=== PATIENT | male | born 1960 | race Caucasian/White ===

== ENCOUNTER 2020-09-11 10:39 | Outpatient (REF) | payer OTHER, SELFPAY ==
--- NOTE | 2020-09-11 10:40 | XR_ITS ---
EXAMINATION: XR WRIST, LEFT CLINICAL INFORMATION: Pain COMPARISON: None TECHNIQUE: PA, lateral, and oblique views of the left wrist. FINDINGS: The bones and soft tissues are normal. No fracture. Alignment is anatomic with normal joint spaces. No erosions or abnormal soft tissue calcifications. XR/XR wrist LT min 3V IMPRESSION: Normal left wrist.
== END 2020-09-11 10:40 | disposition home or self-care (01) ==
LOC: HO.HOSX 10:39
PROVIDERS: PCP Internal Medicine; Visit Provider Physician Assistant
DX: G56.00 Carpal tunnel syndrome, unspecified upper limb (principal); S69.82XA Other specified injuries of left wrist, hand and finger(s), initial encounter
CPT/HCPCS: 29075; 73110; 99212

== ENCOUNTER 2020-10-06 13:12 | Outpatient (REF) | payer OTHER, SELFPAY ==
--- NOTE | 2020-10-06 13:14 | MR_ITS ---
EXAMINATION: MR WRIST WITH CONTRAST, LEFT CLINICAL INFORMATION: Other specified injuries of unspecified wrist. Patient reports left wrist pain, swelling, and no recent injury. COMPARISON: None TECHNIQUE: MRI of the left wrist was performed after the intra-articular administration of a dilute gadolinium-containing solution on a high-field scanner. FINDINGS: TRIANGULAR FIBROCARTILAGE: There is a prominent full-thickness tear involving most of the central triangular fibrocartilage measuring 7 mm in width. INTRINSIC LIGAMENTS: There appears to be a subtle linear full-thickness tear in the central portion of the scapholunate ligament. There is a prominent full-thickness tear in the lunotriquetral ligament. TENDONS/MEDIAN NERVE: Intact ARTICULAR CARTILAGE/BONE: There are patchy areas of mild cartilage thinning involving the radioscaphoid, triscaphe, and 1st CMC joints. There is pmxv-[id number] cartilage irregularity and thinning involving the radiolunate and capitate-hamate articulations. There are patchy areas of bone marrow edema involving the distal radius and ulna and most of the carpal bones. There are a few small subchondral degenerative cysts. JOINT FLUID/SOFT TISSUES: There is gadolinium-containing fluid in all compartments due to the TFCC and ligament tears. There is scattered synovitis in all 3 wrist compartments. MR/MR wrist LT w con IMPRESSION: 1. Prominent full-thickness tear of the central triangular fibrocartilage. 2. Full-thickness tear of the central portion of the scapholunate ligament and prominent full-thickness tear of the lunotriquetral ligament. 3. Vbnl-lt-udhbwksf arthrosis involving multiple joints as described above. 4. Scattered synovitis in all 3 compartments of the wrist.
--- NOTE | 2020-10-06 13:36 | FL_ITS ---
EXAMINATION: MR ARTHROGRAM WRIST, LEFT CLINICAL INFORMATION: Wrist pain COMPARISON: X-ray 09/11/2020 TECHNIQUE/FINDINGS: The procedure, risks, benefits and alternatives were reviewed with the patient and written informed consent was obtained after all questions were answered. A 22-gauge needle was advanced into the left wrist joint utilizing local anesthesia, sterile technique and fluoroscopic guidance. A small amount contrast was injected to confirm needle placement. Subsequently, 5 mL of a mixture of 10 mL normal saline, 4 mL Omnipaque , 6 mL of 1% lidocaine and 0.05 mL of Gadavist were injected. There were no immediate complications. The patient was sent to the MRI in stable condition. Spot films demonstrate contrast extension into the distal radioulnar joint suggestive of TFCC tear. FLUOROSCOPIC TIME: 0.1 minutes NUMBER OF FLUOROSCOPIC IMAGES : 3 screen captures FL/FL arthrogram wrist LT IMPRESSION: Fluoroscopic guided injection of the left wrist joint for MR arthrography without complication.
[2020-10-06] MEDS: iohexoL 300 MG/ML 50 ML INFUS..BTL IV (14:42)
== END 2020-10-06 13:13 | disposition home or self-care (01) ==
LOC: HO.XRAY 13:12
PROVIDERS: Visit Provider Physician Assistant
DX: S69.82XA Other specified injuries of left wrist, hand and finger(s), initial encounter (principal); X58.XXXA Exposure to other specified factors, initial encounter; Y93.9 Activity, unspecified; Y92.9 Unspecified place or not applicable; Y99.8 Other external cause status
CPT/HCPCS: 25246; 73115; 73222; A9585; Q9967

== ENCOUNTER 2020-10-06 13:35 | Outpatient (REF) | payer OTHER, SELFPAY | END 2020-10-06 13:36 | disposition home or self-care (01) | LOC: HO.MRI 13:35 | PROVIDERS: Visit Provider Physician Assistant | DX: Z13.89 Encounter for screening for other disorder (principal) ==

== ENCOUNTER → 2020-10-29 12:49 | Outpatient (BNVA) | payer OTHER, SELFPAY | PROVIDERS: PCP Internal Medicine; Visit Provider Physician Assistant | DX: S69.80XD Other specified injuries of unspecified wrist, hand and finger(s), subsequent encounter (principal) | CPT/HCPCS: 99212 ==

== ENCOUNTER 2020-11-25 11:23 | Outpatient (REF) | payer OTHER, SELFPAY | END 2020-11-25 11:24 | disposition home or self-care (01) | LOC: HO.LAB 11:23 | PROVIDERS: Visit Provider Internal Medicine | DX: Z20.822 Contact with and (suspected) exposure to COVID-19 (principal) | CPT/HCPCS: 36415; C9803; U0003; U0005 ==

== ENCOUNTER → 2020-12-02 13:34 | Outpatient (BNVA) | payer OTHER, SELFPAY | PROVIDERS: PCP Internal Medicine; Visit Provider Orthopaedic Surgery | DX: M25.532 Pain in left wrist (principal); M25.632 Stiffness of left wrist, not elsewhere classified; G56.03 Carpal tunnel syndrome, bilateral upper limbs | CPT/HCPCS: 99202 ==

== ENCOUNTER → 2020-12-30 10:50 | Outpatient (BNVA) | payer OTHER, SELFPAY | PROVIDERS: Visit Provider Orthopaedic Surgery ==

== ENCOUNTER 2021-01-19 08:46 | Outpatient (REF) | payer OTHER, SELFPAY ==
[2021-01-19 11:57] LABS: SARS COV2 PCR INHOUSE NEGATIVE (Negative)
== END 2021-01-19 08:47 | disposition home or self-care (01) ==
LOC: HO.LAB 08:46
PROVIDERS: Visit Provider Internal Medicine
DX: Z20.822 Contact with and (suspected) exposure to COVID-19 (principal)
CPT/HCPCS: C9803; U0003

== ENCOUNTER 2021-02-03 11:20 | Outpatient (REF) | payer OTHER, SELFPAY ==
[2021-02-03 11:39] LABS: COVID-19 Test Negative (Negative)
== END 2021-02-03 11:21 | disposition home or self-care (01) ==
LOC: HO.LAB 11:20
PROVIDERS: Visit Provider Internal Medicine
DX: Z20.822 Contact with and (suspected) exposure to COVID-19 (principal)
CPT/HCPCS: 36415; 87635; C9803

== ENCOUNTER 2021-03-18 14:00 | Outpatient (RCR) | payer OTHER, SELFPAY ==
--- NOTE | 2020-12-14 15:58 | MHC.OT.OEV ---
[address] [phone] F: [phone] Occupational Therapy Evaluation Diagnosis: L WRIST STIFFNESS Date of Onset: 07/08/20 Attending Provider: Ora Luke Prescribed Treatment: Natasha MCALLISTER Follow Up Appointment: 12/30/20 History of Current Condition: Pt has been having pain and stiffness in L wrist since June 2020, reports being in a cast in late August 2020 and then was given a pre gabi brace in September 2020 until pt recently told to back off wear (12/03/2020). Left wrist MRI arthrogram from 10/06/2020 Per the MRI report by Dr. Gonzalez he found 1. Prominent full-thickness tear of the central triangular fibrocartilage 2. Full-thickness tear of the central portion of the scapholunate ligament and prominent full-thickness tear of the lunotriquetral ligament 3. 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 Reports attending the [employer]. Living Situation, Family and/or Social Support: Lives alone Current Level of Function and Occupation Self Care, Employment, Leisure: Reports difficulty with ADLs, IADLs, gripping, lifting heavy amounts Sleep: No complaints with sleep Driving: No complaints with driving Pain Assessment Pain Score: 0-4/10 Pain Scale Used: Numeric (0 - 10) Pain Location and Description: L wrist, radial and ulnar FA Aggravating Factors: Movement, use of L hand Alleviating Factors: Takes ibuprofen for pain Skin and Soft Tissue Assessment Skin and Soft Tissue: Atrophy Comments: Reports L index finger old childhood injury MCP circumference: R 23.5 cm, L 22.5 cm mild atrophy of L hand noted Nerve assessment Ulnar Nerve: Median Nerve: Radial Nerve: Comments: Continue to assess Sensory Assessment Temperature: Light Touch: B/L Impaired Proprioception: Vibration: Comments: Reports numbness in forearm/hand Bagdad josé miguel R hand RF 4.31 (diminished protective sensation), otherwise 3.61 (diminished light tough) in digits L hand Thumb , RF, SF 4.31(diminished protective sensation), IF, LF 3.61 (diminished light touch) Edema Assessment Upper Extremity: WNL Lower Extremity: Comments: Wrist circumference: 20 cm B/L Dexterity Assessment Dexterity: Left Impaired Comments: 9 hole peg: R 30 sec, L 41 sec Special Tests Comments: (-) fovea sign, (-) tinels, (+) L Finklestein's AROM(PROM) Strength Elbow Flexion: Extension: Pronation: R 90 L 90 Supination: R 90 L 12 Comments: Flexion: Extension: Pronation: Supination: Comments: Wrist Flexion: R 42, L 30 Extension: R 60, L 40 Ulnar Deviation: R 30, L 15 Radial Deviation: R 20, L 15 Comments: L radial wrist pain with ulnar deviation Flexion: Extension: Ulnar Deviation: Radial Deviation: Comments: Digits Index MCP: PIP: DIP: Long MCP: PIP: DIP: Ring MCP: PIP: DIP: Small MCP: PIP: DIP: Comments: SF tip to DPC 1mm, otherwise grossly composite fist Gross Grasp: R 65, L 25 Lateral Pinch: R 14, L 6 Two-Point Pinch: R 7, L 3 Three-Jaw Cong: R 8, L 3 Comments: Pulling/tightness reported with L gross grasp. 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 Patient demonstrates Patient verbalizes Barriers to Learning: None Readiness for Learning: Accepting Who was educated? Patient Comments: Plan of Care Assessment: Brady presents with L wrist stiffness after being casted back in August for TFCC injury. He denies any knowledge of [facility]O and has a B/L CTS dx. Brady demonstrates ROM limitations wrist flex/ext, radial/ulnar dev and forearm supination. He reports numbness sensation in his forearm and hand but can not report any specific numbness in the digits. He demonstrates diminished light touch and diminished protective sensation in the L digits. He has mild atrophy in the L hand as well as demonstrates a decrease in L hand strength/pinch. He also reports pain in his left radial and ulnar wrists. Brady reports his limitations are impacting his performance in ADLs, IADLs and work and a 39% limitation was reported per the Quick DASH. He would benefit from skilled OT 1-2x/week for 6 weeks to maximize independence and return function. STG Duration: 3 Short Term Goals: Ind HEP Ind with heat/ice use Ind compliance with orthosis FA supination >45 deg Wrist ext/flexion >45/35 Increase gross grasp >35 lbs LTG Duration: 6 Compliance Mgr Goals: Gross grasp >60 lbs Tolerate lifting 25+ lbs with minimal pain (<2/10) for work related tasks FA supination >80 deg Wrist ext/flexion >55/40 deg 9-hole peg L hand <33 sec Quick DASH <20 Frequency and Duration: The patient will be seen 2x/week for 6 weeks Treatment Plan: Therapeutic Exercise Therapeutic Activity Home Exercise Program Splinting Neuro Re-ed Patient Education Desensitization/Sensory Re-ed ADL Training Ultrasound Iontophoresis Paraffin Fluidotherapy MHP Cold Packs Joint Mobilization Soft Tissue Mobilization Kinesiotaping Other (see comments) Pt STATES SCHEDULING CONFLICT / ABILITY TO ATTEND 2x/WEEK Electronically Signed By: Stefanie Benites OT/s Reviewed/agree with student documentation: Yes Therapist: KAREN GOODMAN, OTR/L Please sign and return to therapist, Thank you for your referral.
--- NOTE | 2021-03-18 15:52 | MHC.OT.DC ---
[address] [phone] F: [phone] Occupational Therapy Discharge Note Provider: Ora Luke Diagnosis: L WRIST STIFFNESS Date of Evaluation: 12/14/20 Date of Discharge: 03/18/21 Treatments to Date: 10 Discharge Status: Improved Function Independent with HEP Discharge Summary: MR CUBA RETURNS AFTER A THREE WEEK LAPSE IN THERAPY WITH GOOD CARRYOVER OF HEP AND LOW PAIN. HE DENIES DIFFICULTIES WITH IADLs AND IS IMPLEMENTING COMPENSATORY TECHNIQUES WHEN NEEDED. JOSE IS WEARING HIS WRIST WIDGET AT NIGHT AND WHEN NEEDED AT WORK. Pt IS CLOSE TO ACHIEVING ALL LTGs AND SUSPECT HE WILL CONTINUE TO IMPROVE WITH SELF GUIDED HEP. NO FURTHER OT WARRANTED AT THIS TIME. D/C OT. Electronically Signed By: KAREN GOODMAN OTR/Jc Reviewed/agree with student documentation: N/A Therapist: Please Sign and return to therapist, thank you for your referral.
== END 2021-03-18 15:54 | disposition other institution (70) ==
LOC: HO.OT 14:00
PROVIDERS: PCP Internal Medicine; Visit Provider Orthopaedic Surgery
DX: M25.632 Stiffness of left wrist, not elsewhere classified (principal); M25.532 Pain in left wrist
CPT/HCPCS: 97033; 97035; 97110; 97140; 97167; 97530

== ENCOUNTER 2021-07-02 11:28 | Outpatient (REF) | payer OTHER, SELFPAY ==
[2021-07-02 12:04] LABS: COVID-19 Test Negative (Negative)
== END 2021-07-02 11:29 | disposition home or self-care (01) ==
LOC: HO.LAB 11:28
PROVIDERS: PCP Internal Medicine; Visit Provider Internal Medicine
DX: Z20.822 Contact with and (suspected) exposure to COVID-19 (principal)
CPT/HCPCS: 36415; 87635; C9803

== ENCOUNTER → 2021-10-26 15:24 | Outpatient (BNVA) | payer OTHER, SELFPAY | PROVIDERS: PCP Internal Medicine; Visit Provider Orthopaedic Surgery | DX: G56.03 Carpal tunnel syndrome, bilateral upper limbs (principal); M25.632 Stiffness of left wrist, not elsewhere classified; M25.532 Pain in left wrist | CPT/HCPCS: 99212 ==

== ENCOUNTER 2021-10-27 10:46 | Outpatient (REF) | payer OTHER, SELFPAY ==
[2021-10-27 11:03] LABS: MANUAL DIFF FLAG NO
[2021-10-27 12:05] LABS: Basophils Percent Auto 0.7 % (0-2); Eosinophils Absolute Auto 0.1 X10*3/uL (0.0-0.4); Eosinophils Percent Auto 1.8 % (0-4); Hemoglobin 14.5 g/dl (14.0-18.0); Imm Gran Abs Auto 0.02 X10*3/uL (0.00-0.03); Imm Gran Pct Auto 0.4 % (0.0-0.4); Lymphocytes Absolute Auto 1.3 X10*3/uL (1.2-4.9); Lymphocytes Percent Auto 22.1 % (20-40); Mean Corpuscular HGB Conc 34.5 g/dl (31.0-36.0); Mean Corpuscular Hemoglobin 31.9 pg (27.0-33.0); Mean Corpuscular Volume 92.5 fL (80.0-98.0); Mean Platelet Volume 10.4 fL (9.4-12.4); Monocytes Absolute Auto 0.5 X10*3/uL (0.1-1.2); Monocytes Percent Auto 8.7 % (2-11); Neutrophils Absolute Auto 3.8 x10*3/uL (2.0-8.3); Neutrophils Percent Auto 66.3 % (45-73); Platelet Count 206 X10*3/uL (160-400); Red Blood Count 4.54 X10*6/uL (4.60-5.80); Red Cell Distribution Width 12.2 % (11.0-16.0); White Blood Count 5.7 X10*3/uL (4.8-10.8)
[2021-10-27 12:28] LABS: Alanine Aminotransferase 18 U/L (0-40); Albumin Level 4.1 g/dL (3.5-5.0); Alkaline Phosphatase 94 U/L (39-117); Anion Gap 12 (12-20); Aspartate Amino Transferase 19 U/L (5-37); Bilirubin Total 0.7 mg/dL (0.0-1.0); Blood Urea Nitrogen 31 mg/dL (9-16); Calcium 9.7 mg/dL (8.4-10.2); Carbon Dioxide 25 mmol/L (22-29); Chloride 106 mmol/L (96-108); Cholesterol 236 mg/dL; Estimated Glomerular Filt Rate 51; Glucose Fasting 89 mg/dL (60-99); HDL Cholesterol 46 mg/dL; LDL Cholesterol Calculated 171 mg/dl; Potassium 4.6 mmol/L (3.3-5.1); Sodium 138 mmol/L (135-145); Total Protein 6.8 g/dL (6.5-8.0); Triglycerides 97 mg/dL
== END 2021-10-27 10:47 | disposition home or self-care (01) ==
LOC: HO.LAB 10:46
PROVIDERS: PCP Internal Medicine; Visit Provider Internal Medicine
DX: Z00.00 Encounter for general adult medical examination without abnormal findings (principal); E11.9 Type 2 diabetes mellitus without complications; R35.1 Nocturia; Z12.5 Encounter for screening for malignant neoplasm of prostate
CPT/HCPCS: 36415; 80053; 80061; 84153; 85025

== ENCOUNTER 2021-11-09 16:09 | Outpatient (REF) | payer OTHER, SELFPAY ==
--- NOTE | ~2021-11-09 | XR_ITS ---
EXAMINATION: XR ANKLE, LEFT CLINICAL INFORMATION: Sprain COMPARISON: None TECHNIQUE: AP, lateral, and mortise views of the left ankle. FINDINGS: There is an oblique minimally displaced fracture of the distal fibular shaft. The lateral malleolus is a displaced laterally and posteriorly 3 mm with respect to the more proximal shaft. No other fracture is seen. There may be mild medial ankle mortise widening. There is diffuse soft tissue swelling about the ankle. There is a plantar calcaneal spur and soft tissue calcification or ossification of the distal Achilles tendon. XR/XR ankle LT min 3V IMPRESSION: Oblique minimally displaced fracture of the distal fibular shaft. Question medial ankle mortise widening.
== END 2021-11-09 16:10 | disposition home or self-care (01) ==
LOC: HO.HMGCX 16:09
PROVIDERS: PCP Internal Medicine; Visit Provider Internal Medicine
DX: S93.402A Sprain of unspecified ligament of left ankle, initial encounter (principal)
CPT/HCPCS: 73610

== ENCOUNTER 2021-11-12 12:54 | Outpatient (REF) | payer OTHER, SELFPAY ==
--- NOTE | ~2021-11-12 | XR_ITS ---
EXAMINATION: XR ANKLE, LEFT CLINICAL INFORMATION: Fracture lateral malleolus. Follow-up. COMPARISON: Radiographs left ankle 11/09/2021 TECHNIQUE: AP, lateral, and mortise views of the left ankle. FINDINGS: Findings are similar to recent imaging. There is a oblique fracture distal fibular with minimal lateral displacement distal fracture fragment similar to prior exam. The posterior and medial malleolus appear intact. There is mild asymmetry ankle mortise, slightly wider on medial side, similar to prior exam. The talar dome shows no osteochondral lesion. There is mineralization in the distal 4 cm Achilles tendon and a bulky plantar calcaneal spur again noted. XR/XR ankle LT min 3V IMPRESSION: Fracture distal fibula with mild asymmetry ankle mortise similar to recent imaging 11/09/2021.
== END 2021-11-12 12:55 | disposition home or self-care (01) ==
LOC: HO.HOSX 12:54
PROVIDERS: PCP Internal Medicine; Visit Provider Physician Assistant
DX: Z01.818 Encounter for other preprocedural examination (principal); S82.832A Other fracture of upper and lower end of left fibula, initial encounter for closed fracture
CPT/HCPCS: 73610; 99212

== ENCOUNTER → 2021-11-16 12:26 | Outpatient (BNVA) | payer OTHER, SELFPAY | PROVIDERS: PCP Internal Medicine; Visit Provider Orthopaedic Surgery | DX: M25.632 Stiffness of left wrist, not elsewhere classified (principal); M25.532 Pain in left wrist; G56.03 Carpal tunnel syndrome, bilateral upper limbs; G62.9 Polyneuropathy, unspecified | CPT/HCPCS: 99212 ==

== ENCOUNTER 2021-11-17 10:54 | Day surgery (SDC) | payer OTHER, SELFPAY ==
--- NOTE | 2021-11-16 12:47 | HO.ANESPROP2 ---
Documented by User: Valerie Jensen NP 11/16/21 12:58 HPI - Anesthesia Eval Consult details Narrative: 61yo M for Left Ankle ORIF PMFSH Active Problems Active Problems: All Active Problems (Updated 11/14/21 @ 13:52 by Sun Mata PA-C) Fracture of distal end of left fibula (Acute) Obesity (BMI 30-39.9) (Acute) Elevated blood pressure reading (Acute) Pure hypercholesterolemia (Acute) Annual physical exam (Acute) Elevated serum creatinine (Acute) Fracture of left fibula (Acute) Bilateral carpal tunnel syndrome (Acute) Stiffness of left wrist joint (Acute) Left wrist pain (Acute) Physical exam (Acute) TFCC (triangular fibrocartilage complex) injury (Acute) Carpal tunnel syndrome (Acute) Past Medical History Medical History (Updated 11/16/21 @ 13:45 by Ora Luke MD) Carpal tunnel syndrome Hyperlipemia Obesity (BMI 30-39.9) Pure hypercholesterolemia Family History Family History Father Multiple sclerosis, primary progressive Mother No problems noted. Sister In good health Son In good health Daughter In good health Surgical History Surgical History History of cholecystectomy Social History Social History Housing: House Alcohol intake: current Alcohol intake frequency: holidays/special occasions only Patient Tobacco Use Status: Former Tobacco user Tobacco use type: Cigarette Second Hand Smoke Exposure: Yes Use of substances other than those prescribed or required for medical reasons: No Are you DNR?: No Advance Directives: No Advance Directives Information Provided: Yes Recently lost weight without trying: No Nutrition Risks: No Nutritional Risk service: No 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 Meds Allergies Allergy/AdvReac Type Severity Reaction Status Date / Time No Known Allergies Allergy Verified 11/16/21 12:42 [No Known Allergies*] Exam Exam Date and Time: November 16, 2021 1247 Pertinent Lab Results Pertinent Lab Results: Laboratory Tests 10/27/21 10/27/21 11:01 11:01 WBC 5.7 Hgb 14.5 Hct 42.0 Plt Count 206 Sodium 138 Potassium 4.6 Chloride 106 Carbon Dioxide 25 BUN 31 H Creatinine 1.41 H Assessment and Plan Assessment Anesthesia Assessment: Chart Reviewed Documented by User: Jack Lopez 11/17/21 14:43 [facility] Past Medical History Medical History (Updated 11/16/21 @ 13:45 by Ora Luke MD) Carpal tunnel syndrome Hyperlipemia Obesity (BMI 30-39.9) Pure hypercholesterolemia Family History Family History Father Multiple sclerosis, primary progressive Mother No problems noted. Sister In good health Son In good health Daughter In good health Family history of problems with anesthesia: No Surgical History Surgical History History of cholecystectomy History of Problems with Anesthesia: No Social History Social History Housing: House Alcohol intake: current Alcohol intake frequency: holidays/special occasions only Patient Tobacco Use Status: Former Tobacco user Tobacco use type: Cigarette Second Hand Smoke Exposure: Yes Use of substances other than those prescribed or required for medical reasons: No Are you DNR?: No Advance Directives: No Advance Directives Information Provided: Yes Recently lost weight without trying: No Nutrition Risks: No Nutritional Risk service: No 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 Meds Allergies Allergy/AdvReac Type Severity Reaction Status Date / Time No Known Allergies Allergy Verified 11/16/21 12:42 [No Known Allergies*] Exam Airway Mallampati Class: IV TM Dist: >3cm Neck ROM: Full Loose/Missing/Broken Teeth: Yes (Chipped front teeth ) Heart: rrr Lungs: bl breath sounds Assessment and Plan Assessment Anesthesia Assessment: Anesthesia Plan Discussed Final Anesthetic Review Family History of Problems with Anesthesia: No History of Problems with Anesthesia: No NPO: Yes ASA Class: II Final Preanesthetic Review: Meds/Allgs Chart Reviewed and Anes Risks/Benef Reviewed (Discussed of high risk of teeth damage as already chipped ) Patient Risk: Intermediate Procedure Risk: Intermediate Anesthetic Plan Anesthetic Plan: GA Disposition: Standard PACU
[2021-11-17] VITALS (11 sets, daily range): BP systolic 109–132; BP diastolic 75–88; PULSE 75–93; RESP 14–18; TEMP 36.2–36.6; O2SAT 96–100; BMI 30.8
--- NOTE | ~2021-11-17 | FL_ITS ---
EXAMINATION: XR FLUOROSCOPY WITH IMAGES CLINICAL INFORMATION: ORIF of a distal fibular fracture. COMPARISON: Radiograph of the left ankle dated from 11/12/2021. TECHNIQUE: Fluoroscopy performed by Kaushal Saez. Fluoroscopy time: 0.3 minutes DAP: 0.0229 mGycm2 Images: 4 FINDINGS: Fluoroscopic images provided demonstrate placement of a lateral fixation plate across the distal fibula with 7 traversing screws. Alignment of the distal fibular fracture and ankle mortise is improved and near-anatomic. There is an additional indeterminate hardware projecting over the medial malleolus. Please correlate with intraoperative report for further details. FL/FL guidance in OR IMPRESSION: Status post ORIF of distal fibular fracture.
--- NOTE | 2021-11-17 12:53 | PC.NURSE ---
MD FLOOD AWARE OF PATIENTS WOUND ON TOP OF ANKLE. OK TO PROCEED. EVALUATED BY BEDSIDE.
[2021-11-17] MEDS: Lactated Ringers 1,000 ML 100 ML IVCONT (13:05)
--- NOTE | 2021-11-17 15:17 | PM.OP ---
Brief Operative Note Date of Service: 11/17/21 Pre-op diagnosis: left fibula fracture Post-op diagnosis: other (1) left fibular fracture 2) left syndesmosis tear) Procedure: 1) ORIF distal fibula 2) ORIF syndesmosis Implants: Hamler lateral locking plate Arthrex sydesmosis tightrope Surgeon: Kaushal Menjivar MD Anesthesia: GETA and local Was an Administrative Support Assistant used for this Procedure?: Yes Administrative Support Assistant: Sun Mata Estimated blood loss (mL): 25 IV fluids (mL): 800 Pathology: none sent Condition: stable Disposition: PACU
--- NOTE | 2021-11-17 15:19 | MHC.SHP ---
Pre-Procedural Eval Section A Date of Service: 11/17/21 The patient is an INPATIENT: No Changes since office visit: Yes Patient answered all questions; No Cold of Flu in the past 2 weeks, No New Medical Problems and No Changes in Medication The History & Physical has been completed within 30 days and I have reviewed it.: Yes Section B Chief Complaint: Fibula Fx Allergies: Allergies Allergy/AdvReac Type Severity Reaction Status Date / Time No Known Allergies Allergy Verified 11/16/21 12:42 [No Known Allergies*] Plan I have reviewed the history and physical and performed a pertinent physical examination on my patient. No changes have occurred unless specified.
[2021-11-17] MEDS: fentaNYL citrate/PF 100 MCG/2 ML VIAL 25 MCG IVPUSH ×2 (15:38→16:01)
[2021-11-17] MEDS: Acetaminophen 325 MG TABLET 650 MG PO (15:38)
[2021-11-17] MEDS: oxyCODONE HCl Immed Release 5 MG TABLET PO (15:39)
--- NOTE | 2021-11-22 11:17 | P.OP_ITS ---
Operative Note Operative Note Date of Service: 11/17/21 Narrative: Date of Service: 11/17/21 Pre-op diagnosis: left fibula fracture Post-op diagnosis: other (1) left fibular fracture 2) left syndesmosis tear) Procedure: 1) ORIF distal fibula 2) ORIF syndesmosis Implants: Kennedi lateral locking plate Arthrex sydesmosis tightrope Surgeon: Kaushal Menjivar MD Anesthesia: GETA and local Was an Intensive Care Unit Registered Nurse used for this Procedure?: Yes Intensive Care Unit Registered Nurse: Sun Mata Estimated blood loss (mL): 25 IV fluids (mL): 800 Pathology: none sent Condition: stable Disposition: PACU Procedure in detail: Patient was brought to the operating room and placed supine on the operative table. All bony prominences were well padded and a time-out was called to identify proper site proper procedure proper surgeon. IV antibiotics per weight were administered. I began by exsanguinating limb is slightly tourniquet to 300 mm Hg. I then made a standard posterolateral incision over the fibula. Full- thickness flaps were taken down to the fibular shaft and distal fibula. The fracture was identified and cleaned with a combination of curette, rongeur and irrigation. A lobster claw was used to provisionally reduce the fracture and a lag screw was placed from posterior to anterior perpendicular to the fracture site. A 5 hole distal fibular locking plate was applied using standard AO technique. Distal locking and proximal nonlocking screws were inserted using standard AO technique. Biplanar fluoroscopy was used to confirm hardware position and fracture reduction. Once I was satisfied that both of these were acceptable I irrigated copiously and turned my attention to the the syndesmosis. And external rotation test was used and the medial clear space opened up pathologically. I then drilled from lateral to medial and posterior to anterior perpendicular to the joint and placed an Arthrex tight rope. The button was flipped on the medial tibia and the syndesmosis reduced with a clamp. Pre tested the syndesmosis using external rotation test and was satisfied with the stability of the syndesmosis. Therefore, all instrumentation was removed and copious irrigation was performed. Absorbable suture and yisel were used for closure and the patient was placed into sterile dressings and a well-padded posterior splint. Tourniquet was let down and the patient was extubated brought to recovery room in stable condition there were no known complications.
== END 2021-11-17 17:13 | disposition home or self-care (01) ==
PROVIDERS: PCP Internal Medicine; Visit Provider Orthopaedic Surgery
PROC: (CPT 27792; principal; 2021-11-17 12:30)
DX: S82.62XA Displaced fracture of lateral malleolus of left fibula, initial encounter for closed fracture (principal); S93.432A Sprain of tibiofibular ligament of left ankle, initial encounter; W00.0XXA Fall on same level due to ice and snow, initial encounter; Y93.01 Activity, walking, marching and hiking; Y92.9 Unspecified place or not applicable; Y99.8 Other external cause status; E78.5 Hyperlipidemia, unspecified; E66.9 Obesity, unspecified; Z68.33 Body mass index [BMI] 33.0-33.9, adult; Z87.891 Personal history of nicotine dependence; Z79.899 Other long term (current) drug therapy
CPT/HCPCS: 27792; 27829; C1713; J0690; J1100; J2250; J2405; J3010

== ENCOUNTER → 2021-11-29 11:02 | Outpatient (BNVA) | payer OTHER, SELFPAY | PROVIDERS: PCP Internal Medicine; Visit Provider Physician Assistant | DX: S82.832D Other fracture of upper and lower end of left fibula, subsequent encounter for closed fracture with routine healing (principal) | CPT/HCPCS: 29405; 99212 ==

== ENCOUNTER 2021-12-27 07:36 | Outpatient (REF) | payer OTHER, SELFPAY ==
--- NOTE | ~2021-12-27 | XR_ITS ---
EXAMINATION: XR ANKLE, LEFT CLINICAL INFORMATION: Fracture COMPARISON: Previous x-ray most recent October 2021 TECHNIQUE: AP, lateral, and mortise views of the left ankle. FINDINGS: There is a plate and screws transfixing the distal fibular shaft fracture. Fracture line appears more indistinct suggestive of a healing. There is a button and arthrodesis of the distal tibia and fibula. There is a crescent-shaped ossification adjacent to the posterior malleolus seen on the lateral view questionable for posterior malleolar fracture. There are calcaneal spurs. There is soft tissue calcification in the distal Achilles tendon. XR/XR ankle LT min 3V IMPRESSION: ORIF of distal fibular shaft fracture with evidence of healing. Probable posterior malleolar fracture as well.
== END 2021-12-27 07:37 | disposition home or self-care (01) ==
LOC: HO.HOSX 07:36
PROVIDERS: Visit Provider Physician Assistant
DX: S82.832D Other fracture of upper and lower end of left fibula, subsequent encounter for closed fracture with routine healing (principal)
CPT/HCPCS: 73610; 99212

== ENCOUNTER 2021-12-29 08:55 | Outpatient (REF) | payer OTHER, SELFPAY ==
[2021-12-29 10:41] LABS: Anion Gap 11 (12-20); Blood Urea Nitrogen 19 mg/dL (9-16); Calcium 9.8 mg/dL (8.4-10.2); Carbon Dioxide 29 mmol/L (22-29); Chloride 105 mmol/L (96-108); Estimated Glomerular Filt Rate > 60; Glucose Random 98 mg/dL (60-115); Potassium 4.8 mmol/L (3.3-5.1); Sodium 140 mmol/L (135-145)
[2021-12-29 10:52] LABS: Appearance Urine CLEAR; Color Urine YELLOW; Glucose Urine UA NEG (NEG); Leukocyte Esterase Urine NEG (NEG); Nitrite Urine NEG (NEG); PH 6.5 (5.0-8.0); Specific Gravity - Urine 1.015 (1.005-1.025); Urine Blood 1+ (NEG); Urine Ketones NEG (NEG); Urine Protein TRACE MG/DL (NEG-TRACE)
[2021-12-29 11:16] LABS: Squamous Epithelial Cell Urine TRACE /LPF; WBC Urine 0-2 /HPF (0-4)
[2021-12-29 11:17] LABS: Mucus Urine 2+ /LPF
== END 2021-12-29 08:56 | disposition home or self-care (01) ==
LOC: HO.LAB 08:55
PROVIDERS: PCP Internal Medicine; Visit Provider Internal Medicine
DX: R79.89 Other specified abnormal findings of blood chemistry (principal)
CPT/HCPCS: 36415; 80048; 81001

== ENCOUNTER → 2022-01-25 13:12 | Outpatient (BNVA) | payer OTHER, SELFPAY | PROVIDERS: PCP Internal Medicine; Visit Provider Orthopaedic Surgery | DX: G56.03 Carpal tunnel syndrome, bilateral upper limbs (principal) | CPT/HCPCS: 99212 ==

== ENCOUNTER → 2022-02-11 14:03 | Outpatient (BNVA) | payer OTHER, SELFPAY | PROVIDERS: PCP Internal Medicine; Visit Provider Physician Assistant | DX: S82.832D Other fracture of upper and lower end of left fibula, subsequent encounter for closed fracture with routine healing (principal) | CPT/HCPCS: 99212 ==

== ENCOUNTER 2022-03-17 08:09 | Day surgery (SDC) | payer OTHER, SELFPAY ==
--- NOTE | 2022-03-17 07:40 | W.PM.OPN ---
Operative Note Operative Note Date of Service: 03/17/22 Narrative: Preop diagnosis: 1. right Carpal tunnel syndrome Postop diagnosis: same Procedure: 1. right Carpal tunnel release Surgeon: Ora Luke MD Anesthesia: local block using 1% lidocaine with epinephrine Findings: Thickened transverse carpal ligament. EBL: Less than 5 mL Specimens: None Complications: None Disposition: Brought to recovery room in stable condition Plan: Follow-up for 10-14 days for wound check and suture removal Indications: The patient is 61 years old, with right carpal tunnel syndrome that has been unresponsive to nonoperative management. The risks and benefits of operative treatment including but not limited to risk of damage to blood vessels, nerves, tendons, infection, persistent pain, persistent symptoms, or possible need for additional surgery were discussed with the patient and the patient wishes to proceed with surgery. Procedure: Once consent was obtained a local block was performed using a combination of 1% lidocaine with epinephrine. The patient was then brought back to the operating suite and placed on the operative table in supine position. A tourniquet was applied to the proximal aspect of the right upper extremity and the limb was prepped and draped in a standard surgical fashion. Once assured that we had a good block, a 1.5 cm longitudinal incision was made centered over the carpal tunnel. The incision was made through the skin to the subcutaneous tissues using a #15 blade. Dissection was made down to the level of the transverse carpal ligament with care being taken to protect the palmar cutaneous nerve. Once the transverse carpal ligament was clearly visualized, a longitudinal incision was made in the transverse carpal ligament 1st using a #15 blade, then using tenotomy scissors under direct visualization. Care was taken to look for and protect the motor branch of the median nerve when seen in this area. Once satisfied with our carpal tunnel release the wound was copiously irrigated with normal saline and hemostasis was obtained with a brief period of local pressure. The skin edges were reapproximated with some 5.0 nylon suture material and a sterile dressing was applied. The patient appears to have tolerated the procedure well and with no complications. All digits were well vascularized at the conclusion of the case.
[2022-03-17 08:41] VITALS: BP 133/89; PULSE 77; RESP 16; TEMP 36.9; O2SAT 98
[2022-03-17 08:45] VITALS: BMI 30.8
--- NOTE | 2022-03-17 08:58 | MHC.SHP ---
Pre-Procedural Eval Section A Date of Service: 03/17/22 The patient is an INPATIENT: No Changes since office visit: No Cold of Flu in the past 2 weeks, No New Medical Problems, No Changes in Medication and No Patient answered all questions The History & Physical has been completed within 30 days and I have reviewed it.: Yes Section B Chief Complaint: carpal tunnel Allergies: Allergies Allergy/AdvReac Type Severity Reaction Status Date / Time No Known Allergies Allergy Verified 03/14/22 13:42 [No Known Allergies*] Plan I have reviewed the history and physical and performed a pertinent physical examination on my patient. No changes have occurred unless specified.
[2022-03-17 09:37] VITALS: BP 128/82; PULSE 78; RESP 16; TEMP 36.1; O2SAT 100
--- NOTE | 2022-03-17 09:44 | MHC.SHP ---
Pre-Procedural Eval Section A Date of Service: 03/17/22 The patient is an INPATIENT: No The History & Physical has been completed within 30 days and I have reviewed it.: Yes Section B Chief Complaint: carpal tunnel Allergies: Allergies Allergy/AdvReac Type Severity Reaction Status Date / Time No Known Allergies Allergy Verified 03/14/22 13:42 [No Known Allergies*] Plan I have reviewed the history and physical and performed a pertinent physical examination on my patient. No changes have occurred unless specified.
== END 2022-03-17 09:49 ==
LOC: HO.SSS 08:09
PROVIDERS: PCP Internal Medicine; Visit Provider Orthopaedic Surgery
PROC: (CPT 64721; principal; 2022-03-17 09:30)
DX: G56.01 Carpal tunnel syndrome, right upper limb (principal); R20.0 Anesthesia of skin; E78.5 Hyperlipidemia, unspecified; E66.9 Obesity, unspecified; Z68.31 Body mass index [BMI] 31.0-31.9, adult; E78.00 Pure hypercholesterolemia, unspecified; Z79.899 Other long term (current) drug therapy; Z87.891 Personal history of nicotine dependence; Z98.890 Other specified postprocedural states; Z90.49 Acquired absence of other specified parts of digestive tract
CPT/HCPCS: 64721; J0171

== ENCOUNTER → 2022-03-25 12:52 | Outpatient (BNVA) | payer OTHER, SELFPAY | PROVIDERS: PCP Internal Medicine; Visit Provider Physician Assistant | DX: S82.832D Other fracture of upper and lower end of left fibula, subsequent encounter for closed fracture with routine healing (principal) | CPT/HCPCS: 99212 ==

== ENCOUNTER 2022-03-29 15:00 | Outpatient (RCR) | payer OTHER, SELFPAY ==
--- NOTE | 2022-01-10 09:36 | MHC.PT.EP ---
[facility] [place] Office [place] Office [place] Office [address] Diony Anthony [address] [phone] F: [phone] F: [phone] F: [phone] F: [phone] Physical Therapy Plan of Care Date of Evaluation: Date of Surgery: 11/17/21 Diagnosis: L fibular and syndesmosis ORIF Assessment: 61 y/o M s/p L distal fibular ORIF with syndesmosis on 11/17/2021. He was NWB in cast for 6 weeks and is now WBAT in tall walking boot. He reports pain and difficulty with standing, walking, stairs, exercise regime. He has not been doing ankle AROM per ortho recommendation once in tall boot. He presents with significantly limited ankle/ toe A/PROM, decreased strength (not formally tested), poor proprioception L ankle, significantly dry, large flaking yellow skin, non-pitting edema, and impaired gait pattern. Educated pt on precautions, skin care, performed ankle exercises to tolerance and maintaining WBAT in boot only. He needed re-education throughout. Recommend PT 2x/week for 10 weeks to address impairments, implement HEP, and optimize functional mobility. Frequency and Duration: The patient will be seen 2x/week for 10 weeks Short Term Goals: 5 weeks 1. Initiate HEP 2. Improve L ankle dorsiflexion to 12* 3. Improve L ankle plantarflexion to 40* Mcc Goals: 10 weeks 1. I with HEP and self management of sx 2. Pt will be able to stand on one leg for 30seconds to facilitate ambulation 3. Pt will be able to ascend/descend stairs in step through pattern with rail and pain < 3/10 Treatment Plan: Modalities to reduce pain, spasms and effusion. Manual therapy to restore motion and function. Therapeutic exercise to improve strength and flexibility. Neuromuscular re-education for posture and balance. Therapeutic activities to return to functional activities of daily living. Electronically signed by: Zari Chopra PT Please sign and return to therapist. Thank you for your referral.
--- NOTE | 2022-01-24 15:00 | MHC.PT.RE ---
[facility] [place] Office [place] Office [place] Office [address] Diony Anthony [address] [phone] F: [phone] F: [phone] F: [phone] F: [phone] Physical Therapy Re-evaluation Diagnosis: L fibular and syndesmosis ORIF Date of Surgery: 11/17/21 Date of Evaluation: 01/10/22 Treatments to Date: 6 Cancellations to Date: 0 No Shows to Date: 0 Subjective: He has ortho visit 02/11. He saw Dr. Rizzo per PT recommendation re foot/skin care and he was given a topical cream for athletes foot. He also has washed his foot this past weekend and it feels a little better. Pain Score: 5 Pain Location: L ankle Objective Measures: Ankle ROM: df 5, pf 28, eversion 5, inversion 14. Poor toe abduction and great toe flex/ext L ankle strength NT secondary to surgical precautions. Gastroc length 2 Skin: greatly improved, minimal-no flaking, small patches of flaking and fungus metatarsal heads/plantar aspect of foot Scar: poor mobility of scar Gait: WBAT in walking boot, L hip abd/ER, good cecily, decreased L hip extension Assessment: Pt reports some pulling with exercises but not painful. He is compliant with WBAT in walking boot and still likes to bring crutches with him although he does not use them. Reviewed d/c crutches again but pt will most likely need re-education here. He is compliant with HEP and is starting to take boot off more at work to air it out and perform ankle AROM as recommended. He continues to need reassurance that he can take his boot off for exercises and skin care as he reports being nervous about doing something wrong to his ankle. His L ankle AROM, swelling, and gait pattern have improved since initial evaluation(see objective measures.) He would benefit from continued PT 2x/week for 7 more weeks to progress ankle AROM, strength, balance, and optimize functional mobility. Short Term Goals: 5 weeks 1. Initiate HEP 2. Improve L ankle dorsiflexion to 12* - progressing 3. Improve L ankle plantarflexion to 40* - progressing Group Home Goals: 10 weeks 1. I with HEP and self management of sx 2. Pt will be able to stand on one leg for 30seconds to facilitate ambulation 3. Pt will be able to ascend/descend stairs in step through pattern with rail and pain < 3/10 Frequency and Duration: The patient will be seen 2x/week for 7 weeks Treatment Plan: Therapeutic Exercise Dynamic Therapeutic Activities Neuromuscular Re-ed Manual Therapies Joint Mobilization Taping Gait Home Exercise Program Patient Education Hot or Cold Pack Reviewed/ Agreed with Student Documentation: Therapist: Electronically signed by: Zari Chopra PT Please sign and return to therapist. Thank you for your referral.
--- NOTE | 2022-02-21 14:15 | MHC.PT.RE ---
[facility] [place] Office [place] Office [place] Office [address] Diony Anthony [address] [phone] F: [phone] F: [phone] F: [phone] F: [phone] Physical Therapy Re-evaluation Diagnosis: L fibular and syndesmosis ORIF Date of Surgery: 11/17/21 Date of Evaluation: 01/10/22 Treatments to Date: 14 Cancellations to Date: 0 No Shows to Date: 0 Subjective: Am I on track? I still use the crutches if I am out walking for awhile, but I haven't used the boot since Monday. Pain Score: 4 Pain Location: L ankle 'pulling' Objective Measures: Ankle ROM: df 10, pf 30, eversion 8, inversion 20. Poor toe mobility. Maintains ~20* great toe extension in resting L ankle strength 4-/5 in available ROM for df/pf/yovany/inv Gastroc length 4 Gait: WBAT in sneakers, R step-to pattern, decreased cecily, lacks L hip extension/ toe -off, lacks UE swing B Assessment: He is 14 weeks post-ankle ORIF with syndesmosis involvement and has just recently been discharged from the boot by ortho. We have initiated gait, balance, and standing strengthening exercises with WBAT. His ankle AROM and strength is gradually progressing (see objective measures) and he is I with HEP. He needs encouragement to d/c crutches fully (we leave them at the front door of the clinic for each session). His gait pattern is very robotic with step-to pattern, lacks terminal hip extension and push-off on L side. He continues to report difficulty with prolonged standing, walking, and stairs. He would benefit from continued PT 2x/week for an additional 5 weeks to progress ROM, strength, balance, and optimize functional mobility. He is motivated and compliant. Short Term Goals: 5 weeks 1. Initiate HEP - met 2. Improve L ankle dorsiflexion to 12* - progressing 3. Improve L ankle plantarflexion to 40* - progressing Project Designer Goals: 15 weeks 1. I with HEP and self management of sx 2. Pt will be able to stand on one leg for 30seconds to facilitate ambulation - progressing 3. Pt will be able to ascend/descend stairs in step through pattern with rail and pain < 3/10 4. Pt will be able to ambulate without boot > 30 min and symmetrical gait pattern. Frequency and Duration: The patient will be seen 2x/week for 5 more weeks Treatment Plan: Therapeutic Exercise Dynamic Therapeutic Activities Neuromuscular Re-ed Manual Therapies Joint Mobilization Taping Gait Home Exercise Program Patient Education Reviewed/ Agreed with Student Documentation: Therapist: Electronically signed by: Zari Chopra PT Please sign and return to therapist. Thank you for your referral.
--- NOTE | 2022-03-29 15:54 | MHC.PT.DC ---
[facility] [place] Office [place] Office [place] Office [address] Diony Anthony [address] [phone] F: [phone] F: [phone] F: [phone] F: [phone] Physical Therapy Discharge Report Diagnosis: L fibular and syndesmosis ORIF Date of Surgery: 11/17/21 Date of Evaluation: 01/10/22 Date of Discharge: 03/29/22 Treatments to Date: Cancellations to Date: 0 No Shows to Date: 0 Discharge Status: Discharge Summary: Patient is ready for DC at this time. He has been DC'd from ortho, has returned to work in full and has returned to the gym and normal walking/work out routine as well. He reports some mild stiffness still but was given an extensive HEP for continuation of stretching and strengthening to continue on his own. At this time he is pain free and appropriate for DC. Electronically signed by: Francine Donovan PT Please sign and return to therapist. Thank you for your referral.
== END 2022-03-29 15:54 | disposition home or self-care (01) ==
LOC: HO.PTCHIC 15:00
PROVIDERS: PCP Internal Medicine; Visit Provider Physician Assistant
DX: S82.832D Other fracture of upper and lower end of left fibula, subsequent encounter for closed fracture with routine healing (principal)
CPT/HCPCS: 97110; 97112; 97116; 97140; 97161; 97164; 97530

== ENCOUNTER 2022-09-21 10:58 | Outpatient (REF) | payer OTHER, SELFPAY ==
[2022-09-21 12:39] LABS: Cholesterol 174 mg/dL; HDL Cholesterol 46 mg/dL; LDL Cholesterol Calculated 115 mg/dl; Triglycerides 68 mg/dL
== END 2022-09-21 10:59 | disposition home or self-care (01) ==
LOC: HO.LAB 10:58
PROVIDERS: Absent Provider Internal Medicine; PCP Internal Medicine; Visit Provider Internal Medicine
DX: Z13.220 Encounter for screening for lipoid disorders (principal)
CPT/HCPCS: 36415; 80061

== ENCOUNTER → 2023-01-24 11:49 | Outpatient (BNVA) | payer OTHER, SELFPAY | PROVIDERS: PCP Internal Medicine; Visit Provider Orthopaedic Surgery | DX: M25.572 Pain in left ankle and joints of left foot (principal); G56.02 Carpal tunnel syndrome, left upper limb; G56.23 Lesion of ulnar nerve, bilateral upper limbs; Z48.811 Encounter for surgical aftercare following surgery on the nervous system | CPT/HCPCS: 99212 ==

== ENCOUNTER 2023-01-26 15:19 | Outpatient (REF) | payer OTHER, SELFPAY ==
--- NOTE | ~2023-01-26 | XR_ITS ---
EXAMINATION: XR ANKLE, LEFT CLINICAL INFORMATION: Fracture reduction and internal fixation. Follow-up. COMPARISON: Radiographs left ankle 12/27/2021, 11/12/2021. TECHNIQUE: Left ankle is imaged in 3 views. FINDINGS: The hardware is intact. There is no interval fracture or dislocation or destructive process. No osteolysis. Ankle mortise is symmetric. No acute bony abnormality. Again, there is mineralization in the mid to distal Achilles and bulky posterior and plantar calcaneal spurs. XR/XR ankle LT min 3V IMPRESSION: -Hardware intact. No osteolysis. No acute bony abnormality.
== END 2023-01-26 15:20 | disposition home or self-care (01) ==
LOC: HO.HOSX 15:19
PROVIDERS: Visit Provider Physician Assistant
DX: S82.832A Other fracture of upper and lower end of left fibula, initial encounter for closed fracture (principal)
CPT/HCPCS: 73610; 99212

== ENCOUNTER 2023-04-04 14:00 | Outpatient (RCR) | payer OTHER, SELFPAY ==
--- NOTE | 2023-03-06 15:04 | MHC.PT.EP ---
[facility] [place] [facility] [place] Office [place] Office [address] Diony Anthony [address] [phone] F: [phone] F: [phone] F: [phone] F: [phone] Physical Therapy Plan of Care Date of Evaluation: Date of Surgery: October 2021. Diagnosis: other fracture of upper and lower end of left fibula Assessment: Patient is a 62 year old R handed male who presents with s/s consistent with other fracture of upper and lower end of left fibula. 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 Patient past medical history includes ORIF of L ankle. Current impairments include pain, posture, ROM, strength, balance, activity tolerance and functional mobility. Functional limitations include decreased ability to stand, transfer, walk, negotiate stairs and squat. Patient is motivated with good rehab potential. Skilled PT will address impairments and functional limitations in order to achieve goals. Frequency and Duration: The patient will be seen 2x/week for 5 weeks Short Term Goals: I with HEP - 2 weeks AROM PF/DF symmetrical to R - 3 weeks Max pain with ADLs 2/10 - 3 weeks Chief Lock Operator Goals: Strenght 4+/5 - 5 weeks LEFS 68/80 - 5 weeks Unlimited with all daily functions - 5 weeks Treatment Plan: Modalities to reduce pain, spasms and effusion. Manual therapy to restore motion and function. Therapeutic exercise to improve strength and flexibility. Neuromuscular re-education for posture and balance. Therapeutic activities to return to functional activities of daily living. Electronically signed by: Emir Membreno, PT Please sign and return to therapist. Thank you for your referral.
--- NOTE | 2023-04-06 08:05 | MHC.PT.DC ---
[facility] [place] Office [place] Office [place] Office [address] Diony Anthony [address] [phone] F: [phone] F: [phone] F: [phone] F: [phone] Physical Therapy Discharge Report Diagnosis: other fracture of upper and lower end of left fibula Date of Surgery: October 2021. Date of Evaluation: 03/06/23 Date of Discharge: 04/06/23 Treatments to Date: 7 Cancellations to Date: No Shows to Date: Discharge Status: Improved Function Independent with HEP Discharge Summary: 04/04/23: pt responded well to skilled PT. he notes reduced occurrences of discomfort, though it does still happen. He is going to be traveling for 3 weeks and likely will be done with PT as he has an updated HEP with appropriate bands and instructions for performance. He also works out often and will likely be able to manage independently should he experience increased soreness during his trip. He is I with HEP. He has symmetrical strength and near symmetrical ROM (however, this may be a residual impairment he will need to manage residential due to surgical history). He is unlimited with all daily functions. Barring significant setback during his trip, he is appropriate to d/c from HEP at this time. 03/30/23: pt has been feeling better overall with skilled PT. notes he feels better after the ex. he still does deal with discomfort intermittently which I explained may linger for prolonged period of time. 03/27/23: pt progressing well with skilled PT. strength and ROM nearing full/symmetrical. Pt still with some discomfort worse first thing in the AM. We will update HEP NV. 03/24/2023: We continued with exercise program as above. He is becoming well versed in it at this point. No complaints of pain or adverse reaction today. Advised him to continue at home as tolerated. 03/22/23: pt has been feeling better overall with less discomfort except just post/lateral of lateral mal. we addressed this with tape today. assess response NV. 03/14; Pt unable to perform B HR equal due to weakness. No c/o pain with exs. 03/09; Pt challenged with balance exs. No c/o pain after exs. Patient is a 62 year old R handed male who presents with s/s consistent with other fracture of upper and lower end of left fibula. 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 Patient past medical history includes ORIF of L ankle. Current impairments include pain, posture, ROM, strength, balance, activity tolerance and functional mobility. Functional limitations include decreased ability to stand, transfer, walk, negotiate stairs and squat. Patient is motivated with good rehab potential. Skilled PT will address impairments and functional limitations in order to achieve goals. Electronically signed by: Emir Membreno, PT Please sign and return to therapist. Thank you for your referral.
== END 2023-04-07 06:58 | disposition home or self-care (01) ==
LOC: HO.PTCHIC 14:00
PROVIDERS: PCP Internal Medicine; Visit Provider Physician Assistant
DX: S82.832A Other fracture of upper and lower end of left fibula, initial encounter for closed fracture (principal)
CPT/HCPCS: 97110; 97112; 97162; 97530

== ENCOUNTER 2023-09-08 11:09 | Outpatient (AMB) | payer OTHER, SELFPAY ==
--- NOTE | 2023-09-08 11:38 | A.OFFVIS_ITS ---
Intake Intake Visit Reasons: OV- L Ankle ORIF 11/17/21 NE Intake Note: Brady is a 61 year old male who presents today for a follow up of his left ankle. s/p ORIF Left Ankle 11/17/21. Allergies No Known Allergies [No Known Allergies*] Allergy (Verified 09/08/23 11:48) HPI OV- L Ankle ORIF 11/17/21 NE HPI Details 62-year-old male who presents in the off ice today 1 year and 11 months status post left distal fibula and syndesmosis ORIF, which was performed on 11/17/[address] Menjivar. The patient reports having returning pain in the left ankle. [facility] Medical History Carpal tunnel syndrome Hyperlipemia Obesity (BMI 30-39.9) Pure hypercholesterolemia Surgical History History of ankle surgery History of cholecystectomy History of hand surgery Family History Father Multiple sclerosis, primary progressive Mother No problems noted. 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 Current occupational exposures/hazards: No Cognitive needs: No Hearing needs: No Vision needs: Yes Review of Systems Const All systems reviewed & are unremarkable except as noted in HPI and below Physical Exam Const General: cooperative, healthy appearing and no acute distress Resp Effort & Inspection: normal respiratory effort and able to speak in complete sentences Cardio Rate: regular rate Peripheral pulses: Peripheral pulses 2+ throughout GI Palpation (GI): Soft to palpation Skin Lesions: no lesions Rashes: no rashes Extrem Other: Left ankle: Prior lateral incision site is clean, dry, and intact. At the distal end of the incision site there is some flaking of the skin. No exposed hardware and no open wound. No surrounding erythema or drainage. No signs of infection. No tenderness to palpation over the plate. Negative anterior drawer. Full ROM in all planes which is painless. NVI. Assessment & Plan Assessment & Plan (1) Retained orthopedic hardware: Comment: Left distal fibula and syndesmosis ORIF; 11/17/2021 NE Code(s): Z96.9 - Presence of functional implant, unspecified (2) Osteoarthritis of left ankle: Code(s): M19.072 - Primary osteoarthritis, left ankle and foot Qualifiers: Osteoarthritis type: unspecified Qualified Code(s): M19.072 - Primary osteoarthritis, left ankle and foot Plan Mr. Lambert is a 62-year-old male who presents in the office today 1 year and 11 months status post left distal fibula and syndesmosis ORIF, which was performed on 11/17/[address] Menjivar. The patient reports having returning pain in the left ankle. I discussed removal of hardware with the patient while in the office today. However, he is not experiencing tenderness to palpation over the hardware at this time. Therefore I do not feel this would be beneficial to move forward with surgical intervention. He does have some degenerative changes noted on x-rays, and I do believe this is causing him discomfort. I educated the patient he may need to participate in some activity modifications based on his symptoms. No surgical intervention is warranted at this time. Follow up will be PRN, or sooner if needed. X-rays of the left ankle which were obtained while in the office today and were reviewed by me, Sun Mata PA-C, revealed degenerative changes and intact orthopedic hardware. Orders: Orders XR ankle LT min 3V Today M25.579 - Pain in unspecified ankle and joints of unspecified foot Patient Instructions: Scribed for Sun Mata PA-C by Roxanne Leary medical authorization specialist, on 09/08/2023 at 11:12 am, EST. Coding Level of Care Code Est Pt Level 3 (43407) Diagnoses Retained orthopedic hardware Z96.9 Osteoarthritis of left ankle, unspecified osteoarthritis type M19.072 Osteoarthritis type: unspecified
== END 2023-09-08 11:52 | disposition home or self-care (01) ==
PROVIDERS: PCP Internal Medicine; Visit Provider Physician Assistant
DX: M19.072 Primary osteoarthritis, left ankle and foot (principal); Z96.9 Presence of functional implant, unspecified
CPT/HCPCS: 99213

== ENCOUNTER 2023-09-08 11:11 | Outpatient (REF) | payer OTHER, SELFPAY ==
--- NOTE | ~2023-09-08 | XR_ITS ---
EXAMINATION: XR ANKLE, LEFT CLINICAL INFORMATION: Pain. COMPARISON: Radiographs dated 01/26/2023. TECHNIQUE: AP, lateral, and mortise views of the left ankle. FINDINGS: Bony alignment and mineralization are normal. The ankle mortise is intact. There is no fracture, dislocation or left ankle joint effusion. There is mild osteoarthritic change of the tibiotalar joint. An intact orthopedic plate and fixator screws are applied to the distal left fibula, and there is intact syndesmotic tightrope hardware. No hardware failure or loosening is seen. Boehler's angle is normal. There are small posterior and large plantar calcaneal spurs. There are abundant degenerative calcifications of the Achilles tendon. No focal soft tissue swelling, gas or foreign body is seen. XR/XR ankle LT min 3V IMPRESSION: 1. There is intact orthopedic hardware, as detailed. 2. No fracture, dislocation or left ankle joint effusion is seen. 3. There are is mild osteoarthritic change of the left tibiotalar joint. 4. There are calcaneal spurs, and degenerative calcifications are seen of the Achilles tendon.
== END 2023-09-08 11:12 | disposition home or self-care (01) ==
LOC: HO.HOSX 11:11
PROVIDERS: Visit Provider Physician Assistant
DX: M19.072 Primary osteoarthritis, left ankle and foot (principal); Z96.9 Presence of functional implant, unspecified
CPT/HCPCS: 73610; 99212

== ENCOUNTER 2023-09-30 07:01 | Outpatient (REF) | payer OTHER, SELFPAY ==
[2023-09-30 07:25] LABS: MANUAL DIFF FLAG NO
[2023-09-30 07:44] LABS: Basophils Percent Auto 0.7 % (0-2); Eosinophils Absolute Auto 0.2 X10*3/uL (0.0-0.4); Eosinophils Percent Auto 2.6 % (0-4); Hemoglobin 14.2 g/dl (14.0-18.0); Imm Gran Abs Auto 0.03 X10*3/uL (0.00-0.03); Imm Gran Pct Auto 0.5 % (0.0-0.4); Lymphocytes Absolute Auto 1.1 X10*3/uL (1.2-4.9); Mean Corpuscular HGB Conc 33.8 g/dl (31.0-36.0); Mean Corpuscular Hemoglobin 31.4 pg (27.0-33.0); Mean Corpuscular Volume 92.9 fL (80.0-98.0); Monocytes Absolute Auto 0.6 X10*3/uL (0.1-1.2); Monocytes Percent Auto 9.5 % (2-11); Neutrophils Absolute Auto 3.9 x10*3/uL (2.0-8.3); Neutrophils Percent Auto 67.7 % (45-73); Platelet Count 230 X10*3/uL (160-400); Red Blood Count 4.52 X10*6/uL (4.60-5.80); Red Cell Distribution Width 12.6 % (11.0-16.0); White Blood Count 5.8 X10*3/uL (4.8-10.8)
[2023-09-30 08:07] LABS: Alanine Aminotransferase 12 U/L (0-40); Albumin Level 3.8 g/dL (3.5-5.0); Alkaline Phosphatase 104 U/L (39-117); Anion Gap 10 (12-20); Aspartate Amino Transferase 20 U/L (5-37); Blood Urea Nitrogen 29 mg/dL (9-16); Calcium 9.4 mg/dL (8.4-10.2); Carbon Dioxide 26 mmol/L (22-29); Chloride 109 mmol/L (96-108); Cholesterol 176 mg/dL (<200); Estimated Glomerular Filt Rate 52; Glucose Fasting 92 mg/dL (60-99); HDL Cholesterol 41 mg/dL (>40); LDL Cholesterol Calculated 124 mg/dL (<100); Potassium 4.7 mmol/L (3.3-5.1); Sodium 140 mmol/L (135-145); Total Protein 6.9 g/dL (6.5-8.0); Triglycerides 59 mg/dL (<150)
[2023-09-30 08:26] LABS: Prostate Specific Antigen Scr 0.75 ng/mL (<0.05-4.0)
== END 2023-09-30 07:02 | disposition home or self-care (01) ==
LOC: HO.LAB 07:01
PROVIDERS: PCP Internal Medicine; Visit Provider Internal Medicine
DX: Z00.00 Encounter for general adult medical examination without abnormal findings (principal); E78.5 Hyperlipidemia, unspecified; D64.9 Anemia, unspecified; N28.9 Disorder of kidney and ureter, unspecified; Z12.5 Encounter for screening for malignant neoplasm of prostate
CPT/HCPCS: 36415; 80053; 80061; 84153; 85025

== ENCOUNTER 2023-10-02 10:24 | Outpatient (AMB) | payer OTHER, SELFPAY ==
[2023-10-02 10:25] VITALS: BP 136/88; PULSE 76; O2SAT 99; BMI 33.5
--- NOTE | 2023-10-02 10:25 | A.OFFPC_ITS ---
Vital Signs 10/02/23 10:25 Height 6 ft 2 in Weight 261 lb BMI 33.5 BP 136/88 Blood Pressure Location Lt brachial Position Sitting Pulse 76 Pulse Source Pulse Oximeter Pulse Oximetry (%) 99 Oxygen Delivery Method Room Air Intake Visit Reasons: blood in urine Entry Level Mechanical Engineer Required: No Business Systems Administrator: Not Required per policy Accompanied by: Self / Same As Patient Allergies No Known Allergies [No Known Allergies*] Allergy (Verified 10/02/23 10:26) Medication List - Last Reconciled 10/02/23 by Morris Rizzo MD atorvastatin 20 mg PO BEDTIME 90 days Tobacco use date assessed: 11/14/22 Fall risk assessment: No Falls in past year Last assessed Fall Risk: 10/02/23 Dental Screening Dental Screen Date: 10/02/23 Did you have a dental visit in the last 12 months?: Yes Did you have a dental problem in the last 6 months where you did not have access to dental care?: No Was dental information given to patient?: Patient has dentist HPI blood in urine HPI Details gross hematuria for a day [facility] Medical History Obesity (BMI 30-39.9) Pure hypercholesterolemia Hyperlipemia Carpal tunnel syndrome Surgical History History of hand surgery History of ankle surgery History of cholecystectomy Family History Father Multiple sclerosis, primary progressive Mother No problems noted. 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 Brady Becerra, Alba Morales, Remy Brothers and colleagues, with an educational holly from [employer]. Review of Systems Const Denies chills, Denies headache(s) and Denies weight loss ENT Denies headache(s) Card Denies chest pain, Denies syncope, Denies irregular heart rhythm and Denies dyspnea Resp Denies chest congestion, Denies cough and Denies dyspnea GI Denies abdominal pain, Denies change in stool character, Denies nausea and Denies vomiting Musc Denies deformity and Denies joint swelling Neuro Denies syncope and Denies headache(s) Physical exam (Primary Care) Vital Signs: Last Vital Signs Pulse 76 10/02/23 10:25 BP 136/88 10/02/23 10:25 Pulse Ox 99 10/02/23 10:25 Oxygen Delivery Method Room Air 10/02/23 10:25 BMI result Body Mass Index 33.5 Tobacco/Smoking Status: Tobacco use Status Tobacco use date assessed 11/14/22 10/02/23 10:26 Patient Tobacco Use Status Former Tobacco user 10/02/23 10:26 Tobacco use type Cigarette 10/02/23 10:26 e-Cigarette/Vaping Use Never Used 10/02/23 10:26 Thrive Assessment: Date of Thrive Assessment Date Thrive assessed 11/14/22 10/02/23 10:26 Const General: cooperative, comfortable, no acute distress and alert Neck Neck: Yes no lymphadenopathy Thyroid: Thyroid normal Resp Effort & Inspection: normal respiratory effort Auscultation: clear to auscultation bilaterally Percussion: percussion normal Cardio Jugular venous distension: no JVD Palpation: normal PMI Rate: regular rate Rhythm: regular rhythm Heart sounds: S1 normal heart sound present and S2 normal heart sound present GI Inspection: Yes normal to inspection Palpation (GI): No hepatosplenomegaly present Skin General skin exam: no rashes or lesions noted Extrem General: Yes no clubbing, cyanosis or edema Assessment and Plan Assessment & Plan (1) Hematuria: Code(s): R31.9 - Hematuria, unspecified Plan: renal US C+S Rx Orders: Orders US renal BI Today R31.9 - Hematuria, unspecified Urine Culture Today R31.9 - Hematuria, unspecified Referrals Urology Referral R31.9 - Hematuria, unspecified Medications: New sulfamethoxazole-trimethoprim 800-160 mg (Bactrim DS) 1 tab PO BID 10 tabs 0RF Coding Level of Care Code Est Pt Level 3 (85703) Diagnoses Hematuria R31.9
== END 2023-10-02 10:39 | disposition home or self-care (01) ==
PROVIDERS: PCP Internal Medicine; Visit Provider Internal Medicine
DX: R31.9 Hematuria, unspecified (principal)
CPT/HCPCS: 99213

== ENCOUNTER 2023-10-02 10:46 | Outpatient (REF) | payer OTHER, SELFPAY | END 2023-10-02 10:47 | disposition home or self-care (01) | LOC: HO.LAB 10:46 | PROVIDERS: PCP Internal Medicine; Visit Provider Internal Medicine | DX: R31.9 Hematuria, unspecified (principal) | CPT/HCPCS: 87086 ==

== ENCOUNTER 2023-10-04 08:17 | Outpatient (REF) | payer OTHER, SELFPAY ==
--- NOTE | ~2023-10-04 | US_ITS ---
EXAMINATION: US RETROPERITONEAL COMPLETE (RENAL) CLINICAL INFORMATION: Hematuria. COMPARISON: CT abdomen pelvis 10/03/2017 TECHNIQUE: Real-time imaging of the kidneys and bladder. FINDINGS: RIGHT KIDNEY: 10.8 x 6.7 x 6.4 cm (SAG x AP x TRV). The kidney is normal in size, contour, and echogenicity. Renal cortical thickness is normal. No calculi or focal parenchymal lesions. There is moderate right-sided hydronephrosis. LEFT KIDNEY: 11.4 x 5.3 x 6.4 cm (SAG x AP x TRV). The kidney is normal in size, contour, and echogenicity. Renal cortical thickness is normal. No calculi or focal parenchymal lesions. No hydronephrosis. BLADDER: There is a mass on the right side of the bladder measuring about 3.2 x 1.6 x 2.8 cm which appears larger on the postvoid imaging which is likely responsible for the right-sided hydronephrosis. Bilateral ureteral jets are demonstrated. Prevoid bladder volume is 160 mL. Postvoid bladder volume is 32 mL. PROSTATE: Prostate mildly enlarged at 37 mL. US/US retroperitoneal comp IMPRESSION: 1. Right-sided bladder mass with moderate right-sided hydronephrosis. This is likely responsible for the right-sided hydronephrosis. Cystoscopy with direct observation of biopsy is recommended. 2. Mildly enlarged prostate.
== END 2023-10-04 08:18 | disposition home or self-care (01) ==
LOC: HO.US 08:17
PROVIDERS: Visit Provider Internal Medicine
DX: R31.9 Hematuria, unspecified (principal)
CPT/HCPCS: 76770

== ENCOUNTER 2023-10-31 14:35 | Outpatient (AMB) | payer MEDICARE, OTHER, SELFPAY ==
--- NOTE | 2023-10-31 14:36 | MHC.OFFVIS ---
Intake Intake Visit Reasons: Gross hematuria Intake Note: New Patient presents for initial visit for Gross Hematuria Urology Medications: none Blood Thinner: none Furnace Maintenance Required: No Accompanied by: Self / Same As Patient Allergies No Known Allergies [No Known Allergies*] Allergy (Verified 10/31/23 15:12) Medication List - Last Reconciled 10/31/23 by ISABEL Mart atorvastatin 20 mg PO BEDTIME 90 days HPI HPI Comments History of Present Illness Details Brady is a very pleasant 63-year-old male patient of Dr. Rizzo. He has a past medical history hyperlipidemia, obesity, and carpal tunnel syndrome. He presents to the office today as a new patient for gross hematuria. In discussion with the patient today he reports following up with his PCP approximately 3 weeks ago for gross hematuria he had been experiencing at which time a retroperitoneal ultrasound was ordered for further assessment evaluation. These results were reviewed with the patient today. Right-sided bladder mass with moderate right-sided hydronephrosis. This is likely responsible for the right sided hydronephrosis. Mildly enlarged prostate. When asked patient does continue with episodes of gross hematuria. In office urinalysis results reviewed with the patient today. Discussed further assessment evaluation with in office cystoscopy given findings on recent retroperitoneal ultrasound. When asked he does report a 25-30 year smoking history of approximately 1 pack per day however quit approximately 13 years ago. He does report noting episodes of dysuria with gross hematuria he otherwise denies urinary urgency, urinary frequency, incontinence, nocturia, hematuria, foul smelling urine, changes to urinary stream, flank pain, fever, and or chills. He is happy with his current voiding parameters. He denies any known chemical exposure. In review of patient's chart it appears PSAs are as follows: 11/13--0.5, 10/14--0.8. He otherwise offers no other issues or concerns at this time. [facility] Medical History Obesity (BMI 30-39.9) Pure hypercholesterolemia Hyperlipemia Carpal tunnel syndrome Surgical History History of hand surgery History of ankle surgery History of cholecystectomy Family History Father Multiple sclerosis, primary progressive Mother No problems noted. 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 Current occupational exposures/hazards: No Cognitive needs: No Hearing needs: No Vision needs: Yes Review of Systems Const Reports as per HPI Eyes Reports no additional complaints ENT Reports no additional complaints Card Reports as per HPI Resp Reports no additional complaints GI Reports no additional complaints Reports as per HPI Musc Reports as per HPI Neuro Reports as per HPI Psych Reports no additional complaints Endo Reports no additional complaints Physical Exam Const General: cooperative, healthy appearing, comfortable, no acute distress, well developed, alert and awake Nutritional Appearance: overweight Orientation/consciousness: patient oriented x3 Limitations: no limitations HEENT Head: Yes normal to inspection, Yes normocephalic and Yes atraumatic Ears: hearing grossly normal bilaterally Eyes General: appearance normal, both eyes and all related structures Neck Neck: Yes normal visual inspection and Yes trachea midline Chest Chest palpation & inspection: normal inspection of the chest Resp Effort & Inspection: normal respiratory effort and able to speak in complete sentences Cardio Rate: regular rate GI Inspection: Yes normal to inspection General: Yes no CVA tenderness Back/Spine/Pelvis Back: no CVA tenderness Skin General skin exam: no rashes or lesions noted Neuro General: patient oriented x3 Extrem General: Yes normal to inspection Psych Appearance: grossly normal and well kempt Mental Status: mental status grossly normal Speech and movement: Normal speech and movement present and Clear speech present Affect: normal affect Attitude: cooperative Thought process: Normal thought process present Thought content: Normal thought content present Insight: Fair insight present (Psych) Judgement: Fair judgement present (Psych) Results AMB Urinalysis, Automated UA Leukoctes 15 Arnold/uL Last Edit by Ezra Delaney on 10/31/23 15:00 UA Nitrite Negative Last Edit by Ezra Delaney on 10/31/23 15:00 UA Urobilinogen 0.2 mg/dL Last Edit by Ezra Delaney on 10/31/23 15:00 UA Protein 100 mg/dL Last Edit by Cassieyanira Lockenidia on 10/31/23 15:00 UA pH 6.0 Last Edit by Ezra Delaney on 10/31/23 15:00 UA Blood 200 Kaveh/uL Last Edit by Ezra Delaney on 10/31/23 15:00 UA Specific Sanford 1.015 Last Edit by Ezra Delaney on 10/31/23 15:00 UA Ketone Negative Last Edit by Ezra Delaney on 10/31/23 15:00 UA Bilirubin 0 mg/dL Last Edit by Ezra Delaney on 10/31/23 15:00 UA Glucose 0 mg/dL Last Edit by Ezra Delaney on 10/31/23 15:00 Results Reviewed Results Reviewed: Laboratory Last Values Urine pH (Auto) 6.0 10/31/23 14:39 Specific Sanford (Auto) 1.015 10/31/23 14:39 Urine Protein (Auto) 100 mg/dL 10/31/23 14:39 Glucose (UA)(Auto) 0 mg/dL 10/31/23 14:39 Urine Ketones (Auto) Negative 10/31/23 14:39 Urine Blood (Auto) 200 Kaveh/uL 10/31/23 14:39 Urine Nitrite (Auto) Negative 10/31/23 14:39 Urine Bilirubin (Auto) 0 mg/dL 10/31/23 14:39 Urine Urobilinogen (Auto) 0.2 mg/dL 10/31/23 14:39 Leukocyte Esterase (Auto) 15 Arnold/uL 10/31/23 14:39 Date of Service: 10/04/23 EXAMINATION: US RETROPERITONEAL COMPLETE (RENAL) FINDINGS: RIGHT KIDNEY: 10.8 x 6.7 x 6.4 cm (SAG x AP x TRV). The kidney is normal in size, contour, and echogenicity. Renal cortical thickness is normal. No calculi or focal parenchymal lesions. There is moderate right-sided hydronephrosis. LEFT KIDNEY: 11.4 x 5.3 x 6.4 cm (SAG x AP x TRV). The kidney is normal in size, contour, and echogenicity. Renal cortical thickness is normal. No calculi or focal parenchymal lesions. No hydronephrosis. BLADDER: There is a mass on the right side of the bladder measuring about 3.2 x 1.6 x 2.8 cm which appears larger on the postvoid imaging which is likely responsible for the right-sided hydronephrosis. Bilateral ureteral jets are demonstrated. Prevoid bladder volume is 160 mL. Postvoid bladder volume is 32 mL. PROSTATE: Prostate mildly enlarged at 37 mL. IMPRESSION: 1. Right-sided bladder mass with moderate right-sided hydronephrosis. This is likely responsible for the right-sided hydronephrosis. Cystoscopy with direct observation of biopsy is recommended. 2. Mildly enlarged prostate. Assessment & Plan Assessment & Plan (1) Hematuria: Code(s): R31.9 - Hematuria, unspecified (2) Bladder mass: Code(s): N32.89 - Other specified disorders of bladder (3) Hydronephrosis: Code(s): N13.30 - Unspecified hydronephrosis Plan In office urinalysis results reviewed with the patient today; will send for urine cytology. Discussed at length recent retroperitoneal ultrasound results; as noted above. Discussed further workup with in office cystoscopy; information provided; this was discussed at length. Discussed, educated, and stressed the importance of drinking plenty of water daily. He is happy with his current voiding parameters. Follow-up in office cystoscopy for further assessment evaluation; or sooner with any issues, concerns, and or questions. Orders: Orders AMB Urinalysis Automated Today Z13.9 - Encounter for screening, unspecified Urine Cytology Today R31.9 - Hematuria, unspecified Patient Instructions: The patient had an opportunity to ask questions regarding the treatment plan. All questions were answered. Physical exam, labs, and imaging were discussed and reviewed in detail. As well as risks, benefits, and discussion of treatment choices. No major barriers to understanding were identified. The patient expressed understanding and agreement with the above treatment plan. The patient was made aware they should contact our office by phone for worsening of their current condition, the appearance of new symptoms, or with any questions or concerns. Compliance is encouraged with any medications and follow up testing that is ordered. It is a privilege to be allowed the opportunity to participate in? your urological care.? Again, if you have any questions or concerns If you have any questions or concerns please do not hesitate to contact me. The office is [phone]. This note is constructed using voice recognition software. While every effort has been made to ensure accuracy sampler tester errors may have been included. Yours sincerely, Urvashi Crocker, VETERANS' COORDINATOR-[employer] Coding Level of Care Code New Pt Level 3 (97059) Diagnoses Hematuria R31.9 Bladder mass N32.89 Hydronephrosis N13.30
== END 2023-10-31 15:13 | disposition home or self-care (01) ==
PROVIDERS: PCP Internal Medicine; Visit Provider Nurse Practitioner Family
DX: R31.9 Hematuria, unspecified (principal); N32.89 Other specified disorders of bladder; N13.30 Unspecified hydronephrosis
CPT/HCPCS: 99203

== ENCOUNTER 2023-10-31 14:35 | Outpatient (REF) | payer MEDICARE, OTHER, SELFPAY ==
[2023-10-31 18:03] LABS: Urine Cytology See Pathology rpt
== END 2023-10-31 14:36 | disposition home or self-care (01) ==
LOC: HO.LNP 14:35
PROVIDERS: PCP Internal Medicine; Visit Provider Nurse Practitioner Family
DX: R31.0 Gross hematuria (principal); N32.89 Other specified disorders of bladder; N13.30 Unspecified hydronephrosis; Z79.899 Other long term (current) drug therapy
CPT/HCPCS: 81003; 88112; 99202

== ENCOUNTER 2023-11-14 15:19 | Outpatient (REF) | payer MEDICARE, OTHER, SELFPAY ==
[2023-11-14 16:57] LABS: Appearance Urine Turbid; Color Urine RED; Glucose Urine UA Negative (Negative); Leukocyte Esterase Urine Trace (Negative); PH 6.5 (5.0-9.0); Specific Gravity - Urine 1.025 (1.005-1.025); UMIC TRIGGER UA YES; Urine Blood Large (3+) (Negative)
[2023-11-14 17:11] LABS: Bacteria Urine Trace (None Seen); Hyaline Casts Urine 0-2 /LPF (0-2); RBC Urine >20 /HPF (0-2); Squamous Epithelial Cell Urine 0-2 /HPF (0-2); WBC Urine 0-5 /HPF (0-5)
== END 2023-11-14 15:20 | disposition home or self-care (01) ==
LOC: HO.LAB 15:19
PROVIDERS: PCP Internal Medicine; Visit Provider Nurse Practitioner Family
DX: R31.9 Hematuria, unspecified (principal)
CPT/HCPCS: 81001; 87086

== ENCOUNTER 2023-11-20 12:34 | Outpatient (AMB) | payer MEDICARE, OTHER, SELFPAY ==
[2023-11-20 12:41] VITALS: BP 168/96; PULSE 70; O2SAT 99; BMI 32.6
--- NOTE | 2023-11-20 12:41 | A.OFFPC_ITS ---
Vital Signs 11/20/23 12:41 Height 6 ft 2 in Weight 254 lb BMI 32.6 BP 168/96 H Blood Pressure Location Lt brachial Position Sitting Pulse 70 Pulse Source Pulse Oximeter Pulse Oximetry (%) 99 Oxygen Delivery Method Room Air Intake Visit Reasons: PE Community Relations Police Lieutenant Required: No Fuel Efficient Automobile Designer: Not Required per policy Accompanied by: Self / Same As Patient Allergies No Known Allergies [No Known Allergies*] Allergy (Verified 11/20/23 12:41) Medication List - Last Reconciled 11/20/23 by Morris Rizzo MD atorvastatin 20 mg PO BEDTIME 90 days Tobacco use date assessed: 11/20/23 Fall risk assessment: No Falls in past year Last assessed Fall Risk: 11/20/23 Dental Screening Dental Screen Date: 11/20/23 Did you have a dental visit in the last 12 months?: Yes Did you have a dental problem in the last 6 months where you did not have access to dental care?: No Was dental information given to patient?: Patient has dentist HPI PE HPI Details hyperlip on rx; having cysto this week to evaluate hematuria [facility] Medical History Obesity (BMI 30-39.9) Pure hypercholesterolemia Hyperlipemia Carpal tunnel syndrome Surgical History History of hand surgery History of ankle surgery History of cholecystectomy Family History Father Multiple sclerosis, primary progressive Mother No problems noted. 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 1. Little interest or pleasure in doing things: not at all 2. Feeling down, depressed, or hopeless: not at all 3. Trouble falling or staying asleep, or sleeping too much: not at all 4. Feeling tired or having little energy: not at all 5. Poor appetite or overeating: not at all 6. Feeling bad about yourself - or that you are a failure or have let yourself or your family down: not at all 7. Trouble concentrating on things, such as reading the newspaper or watching television: not at all 8. Moving or speaking so slowly that other people could have noticed. Or the opposite - being so fidgety or restless that you have been moving around a lot more than usual: not at all 9. Thoughts that you would be better off or of hurting yourself in some way: not at all Total score: 0 Depression Screening Interpretation: Negative Depression Screening Done: Yes 75587 - PHQ-9 Billing: Yes Source: Developed by Drs. Brady Becerra, Alba Morales, Remy Brothers and colleagues, with an educational holly from [email or web address]. Thrive Questionnaire Date Thrive assessed: 11/20/23 I am a: Patient What is your living situation today?: I have a steady place to live Within the past 12 months, did the food you bought not last and you didn't have the money to get more?: Never true Within the past 12 months, did you worry whether your food would run out before you got money to buy more?: Never true Do you have trouble paying for medicines?: No Do you have trouble getting transportation to medical appointments?: No Do you have trouble paying your heating and electricity bill?: No Do you have trouble taking care of your child, family member or friend?: No Do you have trouble with day-to-day activities such as bathing, preparing meals, shopping, managing finances, etc.?: No Are you currently unemployed and looking for a job?: No Are you interested in more education?: No Please select the resources that you would like help with: None THRIVE Score: 0 AUDIT C Alcohol Use Questionnaire (AUDIT-C) 1. How often do you have a drink containing alcohol?: Never 2. How many drinks containing alcohol do you have on a typical day when you are drinking?: 1 or 2 3. How often do you have six or more drinks on one occasion?: Never Total Score: 0 Score Reviewed/Action Taken: Yes RANDY-7 AMB Questionnaire RANDY-7 Date RANDY - 7 assessed: 11/20/23 Feeling nervous, anxious, or on edge: 0 = Not at all Not being able to stop or control worryin = Not at all Worrying too much about different things: 0 = Not at all Trouble relaxin = Not at all Being so restless that it is hard to sit still: 0 = Not at all Becoming easily annoyed or irritable: 0 = Not at all Feeling afraid as if something awful might happen: 0 = Not at all Total RANDY-7 score (0-4 normal; 5-9 mild; 10-14 moderate; 15-21 severe): 0 Source: Developed by Drs. Brady Becerra, Alba Morales, Remy Brothers and colleagues, with an educational holly from [email or web address]. RANDY-7 Assessment Billing RANDY-7 Assessment Tool: RANDY-7 Assessment 93926 Review of Systems Const Denies chills, Denies fatigue, Denies headache(s) and Denies weight loss Eyes Denies change in vision, Denies diplopia and Denies eye pain ENT Denies vertigo, Denies dizziness, Denies headache(s) and Denies nasal discharge Card Denies chest pain, Denies rapid heart rate and Denies dyspnea on exertion Resp Denies chest congestion, Denies cough, Denies pain with cough and Denies dyspnea on exertion GI Denies abdominal pain, Denies hematochezia and Denies change in bowel habits Musc Denies myalgias, Denies arthralgias and Denies joint swelling Skin/Breast Denies lesions and Denies unusual bruising Neuro Denies vertigo, Denies dizziness, Denies headache(s) and Denies focal weakness Endo Denies fatigue Physical exam (Primary Care) Vital Signs: Last Vital Signs Pulse 70 11/20/23 12:41 BP 168/96 H 11/20/23 12:41 Pulse Ox 99 11/20/23 12:41 Oxygen Delivery Method Room Air 11/20/23 12:41 BMI result Body Mass Index 32.6 Tobacco/Smoking Status: Tobacco use Status Tobacco use date assessed 11/20/23 11/20/23 12:42 Patient Tobacco Use Status Former Tobacco user 11/20/23 12:42 Tobacco use type Cigarette 11/20/23 12:42 e-Cigarette/Vaping Use Never Used 11/20/23 12:42 PHQ-9: PHQ-9 Score PHQ-9: Total score 0 11/20/23 12:42 Depression Screening Interpretation: Negative Thrive Assessment: Date of Thrive Assessment Date Thrive assessed 11/20/23 11/20/23 12:42 Const General: cooperative, healthy appearing and no acute distress Orientation/consciousness: oriented to person, oriented to place and oriented to time HENMT Head: Yes normal to inspection, Yes normocephalic and Yes atraumatic Mouth: Normal oral and palatal mucosa present and tongue normal Throat: Yes posterior oropharynx normal and Yes uvula midline Eyes General: appearance normal, both eyes and all related structures Neck Neck: Yes normal visual inspection, Yes full ROM and Yes no lymphadenopathy Thyroid: Thyroid normal Carotids: normal carotid upstroke Chest Chest palpation & inspection: normal inspection of the chest Resp Effort & Inspection: normal respiratory effort and able to speak in complete sentences Auscultation: clear to auscultation bilaterally Cardio Jugular venous distension: no JVD Palpation: normal PMI Rate: regular rate Rhythm: regular rhythm Heart sounds: S1 normal heart sound present and S2 normal heart sound present GI Inspection: Yes normal to inspection Palpation (GI): Soft to palpation and No hepatosplenomegaly present Auscultation: normal bowel sounds General: Yes no CVA tenderness Back/Spine/Pelvis Back: no CVA tenderness Skin General skin exam: no rashes or lesions noted Neuro General: oriented to person, oriented to place and oriented to time Extrem General: Yes normal to inspection and Yes full ROM Assessment and Plan Assessment & Plan (1) Physical exam: Code(s): Z00.00 - Encounter for general adult medical examination without abnormal findings (2) Pure hypercholesterolemia: Code(s): E78.00 - Pure hypercholesterolemia, unspecified (3) Hematuria: Code(s): R31.9 - Hematuria, unspecified Orders: Orders Lipid Panel Today E78.5 - Hyperlipidemia, unspecified Coding Level of Care Code Est Pt Prev Care >65y(37800) Diagnoses Physical exam Z00.00 Pure hypercholesterolemia E78.00 Hematuria R31.9 Additional Codes RANDY-7 Assessment Billing - RANDY-7 Assessment Tool: RANDY-7 Assessment [id number] ([id number])
== END 2023-11-20 13:08 | disposition home or self-care (01) ==
PROVIDERS: PCP Internal Medicine; Visit Provider Internal Medicine
DX: Z00.00 Encounter for general adult medical examination without abnormal findings (principal); E78.00 Pure hypercholesterolemia, unspecified; R31.9 Hematuria, unspecified
CPT/HCPCS: 99397

== ENCOUNTER 2023-11-22 14:38 | Outpatient (AMB) | payer MEDICARE, OTHER, SELFPAY ==
--- NOTE | 2023-11-22 14:50 | A.OFFVIS_ITS ---
Intake Intake Visit Reasons: cysto(bladder mass) Intake Note: Patient presents to office today for cystoscopy Urology Medications: none Blood Thinner: none Antibiotic Allergies: none URO- G Disposable Cystoscope lot: [id number] exp:03/05/2025 Director Teen Post Required: No Accompanied by: Self / Same As Patient Allergies No Known Allergies [No Known Allergies*] Allergy (Verified 11/22/23 15:56) Medication List - Last Reconciled 11/22/23 by ISABEL Mart atorvastatin 20 mg PO BEDTIME 90 days HPI HPI Comments History of Present Illness Details Brady is a very pleasant 63-year-old male patient of Dr. Rizzo. He has a past medical history hyperlipidemia, obesity, and carpal tunnel syndrome. He presents to the office today for a cystoscopy. Of note, patient was seen approximately 2 weeks ago as a new patient for gross hematuria that initially started 10/14. He had underwent imaging with PCP prior to his new patient appointment here at which time retroperitoneal ultrasound noted right-sided bladder mass with moderate right-sided hydronephrosis. This is likely responsible for the right sided hydronephrosis. Mildly enlarged prostate. Urine cytology from last office visit 11/14--Suspicious for high-grade urothelial carcinoma. He does report a 25-30 year smoking history of approximately 1 pack per day however quit approximately 13 years ago. He does report noting episodes of dysuria with gross hematuria he otherwise denies urinary urgency, urinary frequency, incontinence, nocturia, hematuria, foul smelling urine, changes to urinary stream, flank pain, fever, and or chills. He is happy with his current voiding parameters. He denies any known chemical exposure. In review of patient's chart it appears PSAs are as follows: 11/13--0.5, 10/14--0.8. In office cystoscopy performed: Large right bladder base mass noted unable to differentiate UO. Discussed further treatment options with cystoscopy TURBT. Discussed risks and benefits at length. Discussed potential for right-sided ureteral stent placement given position of bladder tumor and retroperitoneal ultrasound noting right-sided hydronephrosis. All questions were answered. Discussed obtaining CT urogram for further assessment evaluation as well as labs [facility] Medical History Obesity (BMI 30-39.9) Pure hypercholesterolemia Hyperlipemia Carpal tunnel syndrome Surgical History History of hand surgery History of ankle surgery History of cholecystectomy Family History Father Multiple sclerosis, primary progressive Mother No problems noted. 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 Current occupational exposures/hazards: No Cognitive needs: No Hearing needs: No Vision needs: Yes Review of Systems Const Denies chills, Denies fatigue, Denies headache(s) and Denies weight loss Eyes Denies change in vision, Denies diplopia and Denies eye pain ENT Denies vertigo, Denies dizziness, Denies headache(s) and Denies nasal discharge Card Denies chest pain, Denies rapid heart rate and Denies dyspnea on exertion Resp Denies chest congestion, Denies cough, Denies pain with cough and Denies dyspnea on exertion GI Denies abdominal pain, Denies hematochezia and Denies change in bowel habits Reports as per HPI Musc Denies myalgias, Denies arthralgias and Denies joint swelling Skin/Breast Denies lesions and Denies unusual bruising Neuro Denies vertigo, Denies dizziness, Denies headache(s) and Denies focal weakness Psych Reports no additional complaints Endo Denies fatigue Physical Exam Const General: cooperative, healthy appearing, comfortable, no acute distress, well developed, alert and awake Nutritional Appearance: overweight Orientation/consciousness: patient oriented x3 Limitations: no limitations HEENT Head: Yes normal to inspection, Yes normocephalic and Yes atraumatic Ears: hearing grossly normal bilaterally Eyes General: appearance normal, both eyes and all related structures Neck Neck: Yes normal visual inspection and Yes trachea midline Chest Chest palpation & inspection: normal inspection of the chest Resp Effort & Inspection: normal respiratory effort and able to speak in complete sentences Cardio Rate: regular rate GI Inspection: Yes normal to inspection General: Yes no CVA tenderness Back/Spine/Pelvis Back: no CVA tenderness Skin General skin exam: no rashes or lesions noted Neuro General: patient oriented x3 Extrem General: Yes normal to inspection Psych Appearance: grossly normal and well kempt Mental Status: mental status grossly normal Speech and movement: Normal speech and movement present and Clear speech present Affect: normal affect Attitude: cooperative Thought process: Normal thought process present Thought content: Normal thought content present Insight: Fair insight present (Psych) Judgement: Fair judgement present (Psych) Office Procedures Cystoscopy Consent Discussed risk and benefit or proposed procedure with the patient. Information consent for procedure given to the patient. Discussed technical aspects, risks, benefits and alternatives in full. Addressed all of the patient's questions and concerns regarding the procedure. The patient demonstrated knowledge and understanding. They wish to proceed with this procedure. Preparation The patient was prepped in the usual manner. A laundry operator finishing was present and in the room. Genitalia was prepped with betadine solution in a sterile manner. Lidocaine Jelly 2% was placed into the urethra and 16Fr flexible Olympus cystoscope was inserted into the meatus after adequate lubrication. Procedure Meatus-normal position Urethra-normal Bladder examination with retroflexion of cystoscope Bladder Orifices -normal shape and position Bladder Capacity-moderate Trabeculations none Cellule Formation none Diverticulum Formation none Mucosal Erythema none Bladder Tumor large right sided bladder base tumor unable to differentiate UO Patient tolerated procedure well [id number] DISPOSABLE SCOPE URO-G FLEXIBLE SCOPE Procedure code (CPT) selection complete Office Meds lidocaine HCl 2 % mucosal jelly in applicator Performing Provider: ISABEL Mart Performing Location: [facility] Administered by: Meena Zuñiga RN on 11/22/23 15:07 Dose Route Admin Location Dispensed Lot Number Expiration Date [facility] Oncology Physician Assistant 10 mL intra-urethral 10 mL nitrofurantoin monohydrate/macrocrystals 100 mg capsule Performing Provider: ISABEL Mart Performing Location: [facility] Administered by: Meena Zuñiga RN on 11/22/23 15:07 Dose Route Admin Location Dispensed Lot Number Expiration Date [facility] Oncology Physician Assistant 100 mg PO 1 cap naproxen 500 mg tablet Performing Provider: ISABEL Mart Performing Location: [facility] Administered by: Meena Zuñiga RN on 11/22/23 15:07 Dose Route Admin Location Dispensed Lot Number Expiration Date [facility] Oncology Physician Assistant 500 mg PO 1 tab Results AMB Urinalysis, Automated UA Leukoctes 0 Arnold/uL Last Edit by Ezra Cornelianidia on 11/22/23 15:07 UA Nitrite Negative Last Edit by Avaakdayamie Elaina on 11/22/23 15:07 UA Urobilinogen 0.2 mg/dL [facility] 11/22/[facility] 15:07 UA Protein 30 mg/dL Last Edit by [email or web address] on 11/22/23 15:07 UA pH 5.5 Last [facility] 11/22/23 15:07 UA Blood 200 Kaveh/uL Last Edit by [email or web address] on 11/22/23 15:07 UA Specific Townsend 1.030 Last Edit [facility] 11/22/23 15:07 UA Ketone Negative Last Edit by [email or web address] on 11/22/23 15:07 UA Bilirubin 0 mg/dL Last Edit by CHEQROOM on 11/22/23 15:07 UA Glucose 0 mg/dL Last Edit by CHEQROOM on 11/22/23 15:07 Results Reviewed Results Reviewed: Laboratory Last Values Urine pH (Auto) 5.5 11/22/23 15:06 Specific Townsend (Auto) 1.030 11/22/23 15:06 Urine Protein (Auto) 30 mg/dL 11/22/23 15:06 Glucose (UA)(Auto) 0 mg/dL 11/22/23 15:06 Urine Ketones (Auto) Negative 11/22/23 15:06 Urine Blood (Auto) 200 Kaveh/uL 11/22/23 15:06 Urine Nitrite (Auto) Negative 11/22/23 15:06 Urine Bilirubin (Auto) 0 mg/dL 11/22/23 15:06 Urine Urobilinogen (Auto) 0.2 mg/dL 11/22/23 15:06 Leukocyte Esterase (Auto) 0 Arnold/uL 11/22/23 15:06 Assessment & Plan Assessment & Plan (1) Bladder mass: Code(s): N32.89 - Other specified disorders of bladder (2) Hematuria: Code(s): R31.9 - Hematuria, unspecified (3) Hydronephrosis: Code(s): N13.30 - Unspecified hydronephrosis Plan: Risks, benefits and alternatives to therapy were discussed. These include but are not limited to infection, bleeding, damage to local organs and tissues, need for further interventions. ? Anesthetic risks regarding cardiac arrhythmia, blood clots, and potential mortality were discussed. The patient understands the typical recovery time and the outpatient nature of the procedure. After consideration of these risks the patient gives full informed consent and they wish to move ahead with the procedure. Plan In office urinalysis results reviewed with the patient today; as noted above. Urine cytology results reviewed with the patient today; as noted above. Discussed obtaining CT urogram for further assessment evaluation. Will obtain BUN, creatinine, and CBC for further assessment evaluation. In office cystoscopy performed; large right-sided bladder base mass noted unable to differentiate UO Discussed at length further treatment options with cystoscopy TURBT; surgical procedure; risks and benefits were discussed at length; discussed possible right-sided ureteral stent placement given placement of bladder tumor and right- sided hydronephrosis noted on retroperitoneal imaging. Will schedule for cystoscopy TURBT in OR with Dr. Hopkins; reviewed with provider. Follow-up status post procedure per Dr. Fierro orders; or sooner with any issues, concerns, and or questions. Orders: Orders Blood Urea Nitrogen Today N32.89 - Other specified disorders of bladder, R31.9 - Hematuria, unspecified AMB Urinalysis Automated Today Z13.9 - Encounter for screening, unspecified AMB Cystoscopy Today N32.89 - Other specified disorders of bladder CT urogram Today R31.0 - Gross hematuria Complete Blood Count no Diff 6 Months E29.1 - Testicular hypofunction Creatinine Today N32.89 - Other specified disorders of bladder, R31.9 - Hematuria, unspecified Patient Instructions: The patient had an opportunity to ask questions regarding the treatment plan. All questions were answered. Physical exam, labs, and imaging were discussed and reviewed in detail. As well as risks, benefits, and discussion of treatment choices. No major barriers to understanding were identified. The patient expressed understanding and agreement with the above treatment plan. The patient was made aware they should contact our office by phone for worsening of their current condition, the appearance of new symptoms, or with any ques tions or concerns. Compliance is encouraged with any medications and follow up testing that is ordered. It is a privilege to be allowed the opportunity to participate in? your urological care.? Again, if you have any questions or concerns If you have any questions or concerns please do not hesitate to contact me. The office is [phone]. This note is constructed using voice recognition software. While every effort has been made to ensure accuracy outside sales account representative errors may have been included. Yours sincerely, KIRSTEN Mart-BRENDA Coding Level of Care Code Est Pt Level 4 (30575) Diagnoses Bladder mass N32.89 Hematuria R31.9 Hydronephrosis N13.30 CPT Codes Cystoscopy - CPT: [id number] ([id number])
== END 2023-11-22 16:14 | disposition home or self-care (01) ==
PROVIDERS: PCP Internal Medicine; Visit Provider Nurse Practitioner Family
DX: N32.89 Other specified disorders of bladder (principal); R31.9 Hematuria, unspecified; Z13.9 Encounter for screening, unspecified
CPT/HCPCS: 52000

== ENCOUNTER → 2023-11-22 14:38 | Outpatient (BNVA) | payer MEDICARE, OTHER, SELFPAY | PROVIDERS: PCP Internal Medicine; Visit Provider Nurse Practitioner Family | DX: R31.9 Hematuria, unspecified (principal); N32.89 Other specified disorders of bladder; N13.30 Unspecified hydronephrosis | CPT/HCPCS: 52000; 81003 ==

== ENCOUNTER 2023-11-29 07:02 | Outpatient (REF) | payer MEDICARE, OTHER, SELFPAY ==
[2023-11-29 08:24] LABS: Blood Urea Nitrogen 29 mg/dL (9-16); Estimated Glomerular Filt Rate 48
== END 2023-11-29 07:03 | disposition home or self-care (01) ==
LOC: HO.LAB 07:02
PROVIDERS: Visit Provider Nurse Practitioner Family
DX: N32.89 Other specified disorders of bladder (principal); R31.9 Hematuria, unspecified
CPT/HCPCS: 36415; 82565; 84520

== ENCOUNTER 2023-12-06 11:23 | Outpatient (REF) | payer MEDICARE, OTHER, SELFPAY ==
--- NOTE | ~2023-12-06 | CT_ITS ---
EXAMINATION: CT ABDOMEN AND PELVIS WITHOUT AND WITH CONTRAST CLINICAL INFORMATION: Hematuria COMPARISON: Previous CT of the abdomen and pelvis September 2017 and renal ultrasound August 2023 TECHNIQUE: Noncontrast CT of the abdomen and pelvis is performed followed by split bolus contrast-enhanced images using 85 mL Omnipaque 350 contrast.? Postcontrast imaging is performed during the combined nephrogram and excretion phase. Sagittal and coronal reformatted images were obtained on the technologist's workstation for both the precontrast and postcontrast phases. This CT examination was performed using dose optimization techniques as appropriate, variously including the following: *Automated exposure control *Adjustment of mA and/or kV according to patient size (this includes techniques or standardized protocols for targeted exams where dose is matched to indication/reason for exam; i.e. extremities or head) *Use of iterative reconstruction technique DLP: 1223 mGy-cm FINDINGS: LUNG BASES: The visualized lung bases are unremarkable. LIVER, GALLBLADDER, AND BILIARY TREE: The liver is normal in size, shape, and attenuation. No focal hepatic lesion or biliary ductal dilatation is present. The gallbladder has been removed. PANCREAS: Unremarkable. SPLEEN: Unremarkable. ADRENAL GLANDS: Unremarkable. KIDNEYS AND URETERS: No renal stone or mass. There is moderate right hydronephrosis and down to the bladder. There is a delayed right nephrogram. There is no contrast seen in the right renal collecting system or ureter this is not optimally evaluated. The kidney is normal. No left hydronephrosis. The left renal collecting system and ureter are well opacified with excreted contrast in BLADDER: Large heterogeneous mass in the right side of the bladder involving the right lateral bladder wall, right UVJ region and posterior inferior base of the bladder extending toward the left UVJ region. Appearance is concerning for bladder neoplasm. Mass is irregular in shape and difficult to measure. There is stranding of the adjacent perivesicular fat. There are small right retroperitoneal lymph nodes. GASTROINTESTINAL TRACT: The small and large bowel are unremarkable. The appendix is unremarkable. ABDOMINAL WALL: No significant hernia is appreciated. LYMPH NODES: There are small bilateral retroperitoneal pelvic and lower abdominal retroperitoneal lymph nodes. Largest lymph node is a right external iliac lymph node measuring 6 mm in short axis axial image VASCULAR: Unremarkable. PELVIC VISCERA: Unremarkable. OSSEUS STRUCTURES: Degenerative changes of the spine. No fracture or bone lesion. CT/CT urogram IMPRESSION: Large heterogeneous mass in the right side of the bladder involving the right lateral bladder wall, right UVJ region and posterior inferior base of the bladder extending toward the left UVJ region. Appearance is suggestive of bladder neoplasm. There is stranding of the adjacent perivesicular fat and small retroperitoneal lymph nodes. There is moderate right hydronephrosis and delayed right nephrogram. There is no contrast seen in the right renal collecting system or ureter and this is not optimally evaluated.
[2023-12-06] MEDS: iohexoL 350 MG/ML 100 ML INFUS..BTL 85 ML IV (12:13)
== END 2023-12-06 11:24 | disposition home or self-care (01) ==
LOC: HO.CT 11:23
PROVIDERS: PCP Internal Medicine; Visit Provider Nurse Practitioner Family
DX: R31.0 Gross hematuria (principal)
CPT/HCPCS: 74178; Q9967

== ENCOUNTER 2023-12-12 07:28 | Day surgery (SDC) | payer MEDICARE, OTHER, SELFPAY ==
[2023-12-06 14:08] VITALS: BMI 32.6
[2023-12-12] VITALS (13 sets, daily range): BP systolic 120–172; BP diastolic 74–103; PULSE 66–96; RESP 14–18; TEMP 36.4–36.9; O2SAT 96–100; BMI 32.6; BMI 32.7; BMI 32.8
--- NOTE | ~2023-12-12 | FL_ITS ---
EXAMINATION: XR FLUOROSCOPY WITH IMAGES CLINICAL INFORMATION: Cystoscopy. COMPARISON: CT urogram dated 12/06/2023. TECHNIQUE: Fluoroscopy Supervised By: Dr. Hopkins. Fluoroscopy Time: 1.0 seconds. Cumulative Dose: 0.26 mGy. Images: 1. FINDINGS: The submitted image shows a probable view of the mid pelvis. Pelvic phleboliths are noted. There are undulating linear opacities overlapping the medial left pelvis which may be related to operative sponges. There is no corresponding finding seen on the comparison CT examination. FL/FL guidance in OR IMPRESSION: Intraoperative fluoroscopic guidance is provided during cystoscopy. Please see the patient's Operative Report for full procedural details.
[2023-12-12] MEDS: Lactated Ringers 1,000 ML 50 ML IVCONT ×2 (09:07→20:06)
--- NOTE | 2023-12-12 11:50 | HO.ANESPROP2 ---
HPI - Anesthesia Eval Consult details Narrative: for cysto, TURBT PMFSH Active Problems Active Problems: All Active Problems (Updated 10/31/23 @ 22:20 by ISABEL Mart) Hydronephrosis (Acute) Bladder mass (Acute) Hematuria (Acute) Osteoarthritis of left ankle (Acute) Retained orthopedic hardware (Acute) Cubital tunnel syndrome, bilateral (Acute) TFCC (triangular fibrocartilage complex) injury (Acute) Physical exam (Acute) Left wrist pain (Acute) Stiffness of left wrist joint (Acute) Bilateral carpal tunnel syndrome (Acute) Fracture of left fibula (Acute) Elevated serum creatinine (Acute) Annual physical exam (Acute) Elevated blood pressure reading (Acute) Fracture of distal end of left fibula (Acute) Neuropathy (Acute) Tinea pedis (Acute) Obesity (BMI 30-39.9) (Acute) Pure hypercholesterolemia (Acute) Carpal tunnel syndrome (Acute) Past Medical History Medical History Obesity (BMI 30-39.9) Pure hypercholesterolemia Hyperlipemia Carpal tunnel syndrome Narrative: GORDON or CKD with creat 1.47. Family History Family History Father Multiple sclerosis, primary progressive Mother No problems noted. Sister In good health Son In good health Daughter In good health Family history of problems with anesthesia: No Surgical History Surgical History History of hand surgery History of ankle surgery History of cholecystectomy History of Problems with Anesthesia: No Social History Social History Housing: House Alcohol intake: current Alcohol intake frequency: holidays/special occasions only Patient Tobacco Use Status: Former Tobacco user Tobacco use type: Cigarette e-Cigarette/Vaping Use: Never Used Second Hand Smoke Exposure: Yes Use of substances other than those prescribed or required for medical reasons: No Advance Directives: No Advance Directives Information Provided: Yes service: No Current occupational status: employed 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 Current occupational exposures/hazards: No Cognitive needs: No Hearing needs: No Vision needs: Yes Meds Allergies Allergy/AdvReac Type Severity Reaction Status Date / Time No Known Allergies Allergy Verified 11/22/23 15:56 [No Known Allergies*] Active Medications: Current Medications Lactated Ringer's (Lr) 1,000 mls @ 50 mls/hr IVCONT .Q20H HORTENCIA Last Admin: 12/12/23 09:07 Dose: 50 mls/hr Exam Height,Weight and Vital Signs: Height 6 ft 2 in Weight 115.575 kg Last Vital Signs Temp 98.0 F 12/12/23 08:48 Pulse 79 12/12/23 08:48 Resp 18 12/12/23 08:48 BP 152/101 H 12/12/23 08:48 Pulse Ox 97 12/12/23 08:48 O2 Del Method Room Air 12/12/23 08:48 Airway Mallampati Class: I TM Dist: >3cm Neck ROM: Full Loose/Missing/Broken Teeth: No Heart: ok Lungs: ok Assessment and Plan Assessment Anesthesia Assessment: Anesthesia Plan Discussed Final Anesthetic Review Family History of Problems with Anesthesia: No History of Problems with Anesthesia: No NPO: Yes ASA Class: III Final Preanesthetic Review: No Changes in Pt Med Stat, Meds/Allgs Chart Reviewed, Consent Obtained/Reviewed and Anes Risks/Benef Reviewed Patient Risk: Intermediate Procedure Risk: Low Anesthetic Plan Anesthetic Plan: GA and Agree w/ Assess. and Plan Disposition: Standard PACU
--- NOTE | 2023-12-12 13:28 | MHC.SHP ---
Pre-Procedural Eval Section A - 24 Hr Update-Section A only Date of Service: 12/12/23 The patient is an INPATIENT: No The patient has been examined within 24 hours of the surgical procedure. The History & Physical has been completed within 30 days and I have reviewed it.: Yes Section B - Complete if H&P > 30 days Chief Complaint: Bladder tumor, right hydronephrosis Allergies: Allergies Allergy/AdvReac Type Severity Reaction Status Date / Time No Known Allergies Allergy Verified 11/22/23 15:56 [No Known Allergies*] Plan Diagnosis/Plan: Unchanged I have reviewed the history and physical and performed a pertinent physical examination on my patient. No changes have occurred unless specified. Cystoscopy, transurethral resection bladder tumor, right retrograde stent insertion Time Spent With Patient Time: Total time managing care of this patient today ____ minutes.
--- NOTE | 2023-12-12 15:24 | P.OP_ITS ---
Operative Note Operative Note Date of Service: 12/12/23 Narrative: PREOP DIAGNOSIS: Large bladder tumor, right hydronephrosis POSTOP DIAGNOSIS: Large bladder tumor, right hydronephrosis PROCEDURE: CYSTOSCOPY TRANSURETHRAL RESECTION OF BLADDER TUMOR, FULGURATION Anesthesia: General Surgeon Dr. Sangita Hopkins Indications: Brady is a 63-year-old male who has had intermittent gross hematuria. Office cystoscopy noted large necrotic bladder tumor right lateral wall. Further evaluation with CT urogram was significant for right hydronephrosis hydroureter to the level of the bladder and large bladder tumor right lateral wall invading into the right trigone. Findings: Greater than 5 cm bladder tumor right lateral wall involving the right trigone. The right ureteral orifice was not visualized there was good efflux of urine from the left ureteral orifice. Details of procedure: The patient was brought into the operating room placed on the OR table in supine position. 2 g of Ancef IV. General anesthesia was administered. The patient was repositioned into lithotomy position, prepped and draped in the usual sterile fashion. Time-out was done per protocol. 2% urojet placed. The 22 Tristanian cystoscope was passed transurethrally into the bladder. The bulbous urethra was within normal limits the prostatic urethra was nonobstructive. Evaluation of the right trigone, the right ureteral orifice was not visualized. Necrotic bladder tumor involving right lateral wall and right trigone was visualized. There was no significant bleeding from the tumor. The cystoscope was removed. The 24 Tristanian resectoscope with was passed transurethrally under direct visualization into the bladder. The loop working element was used to resect the bladder tumor, without evidence of perforation, the loop was also used to fulgurate the base of the bladder tumor. Once there was good hemostasis the resectoscope was removed. A [address] catheter 30 cc balloon was passed without difficulty. Slow saline continuous bladder irrigation was started in the OR. The patient was brought out of anesthesia and taken to recovery in stable condition. Complications: None EBL minimal, <25 mL Drains: [address] catheter 30 mL balloon
[2023-12-12] MEDS: Acetaminophen 325 MG TABLET 650 MG PO (16:02)
--- NOTE | 2023-12-12 19:13 | PC.NURSE ---
Plan was to medicate with oxycodone prior to bringing to S[facility]. Pt states prefers to wait until ready for bed before taking pain meds that may make him drowsy. States he is used to having burning pain and that it is tolerable.
--- NOTE | 2023-12-12 19:44 | PHA.MEDREC ---
Pharmacy Consult ? Medication Reconciliation Pharmacy has completed the medication reconciliation. Confirmed with patient he is ONLY taking Atorvastatin 20mg
[2023-12-12] MEDS: Docusate Sodium 100 MG CAPSULE PO (19:55)
[2023-12-12] MEDS: HYDROmorphone HCl 1 MG/ML SYRINGE 0.5 MG IVPUSH (19:56)
[2023-12-13 00:11] VITALS: RESP 20
[2023-12-13] MEDS: HYDROmorphone HCl 1 MG/ML SYRINGE 0.5 MG IVPUSH (01:38)
[2023-12-13] MEDS: Melatonin 3 MG TABLET PO (01:40)
[2023-12-13 02:58] VITALS: BP 141/84; PULSE 65; RESP 16; TEMP 36.4; O2SAT 97
[2023-12-13 07:28] VITALS: BP 151/90; PULSE 69; RESP 16; TEMP 36.4; O2SAT 99
[2023-12-13] MEDS: Docusate Sodium 100 MG CAPSULE PO (07:44)
--- NOTE | 2023-12-13 10:19 | PC.NURSE ---
Addendum entered by Chloe Pina RN 12/13/23 10:37: patient tolerating disconnected CBI very well, no increase in pain or pressure per pt. 3-way catheter removed @ [address] Hopkins's request, catheter intact at time of removal, pt tolerated well. Original Note: CBI draining clear, pale urine. Per Dr. Hopkins - CBI to be disconnected for now, if patient tolerates well catheter will be removed prior to discharge. CBI disconnected @ 1000
[2023-12-13 11:34] VITALS: BP 157/92; PULSE 78; RESP 16; TEMP 36.8; O2SAT 99
--- NOTE | 2023-12-13 12:45 | PM.DS ---
DS: Providers Provider Date of Service: 12/13/23 Date of admission: 12/12/23 Date of discharge: 12/13/23 Primary care physician: Morris Rizzo MD Admitting clinician: Sangita Hopkins Attending physician on admission: Sangita Hopkins Attending physician on discharge: Sangita Hopkins Discharging clinician: Sangita Hopkins DS: Diagnosis Discharge Diagnosis (1) Bladder mass: Status: Acute (2) Hydronephrosis: Status: Acute DS: Summary Hospital Course Hospital Course: Status post cystoscopy TURBT on 12/12/23 CBI for hematuria wen removed prior to discharge Status at Discharge Cognitive/behavioral status at discharge: Baseline Functional status at discharge: independent ambulation Overall status at discharge: patient is back to baseline Time Attestation Discharge coordination time: Greater than 30 minutes Quality: Safe Use of Opioids Does Pt have an Active Cancer Diagnosis on the Problem List?: No Quality: Stroke Does the patient have a stroke diagnosis?: No Physical Exam Vital Signs: Vital Signs: Last Vital Signs Temp 98.2 F 12/13/23 11:34 Pulse 78 12/13/23 11:34 Resp 16 12/13/23 11:34 BP 157/92 H 12/13/23 11:34 Pulse Ox 99 12/13/23 11:34 O2 Del Method Room Air 12/13/23 11:34 O2 Flow Rate 6 12/12/23 15:26 BMI result Body Mass Index 32.8 DS: Data Data Completed and Pending Pending studies at discharge: Pending at discharge 12/12/23 15:00 Surgical [PTH] Routine Discharge Plan Discharge Patient Disposition: Home, Self-Care Referrals: Morris Rizzo MD [Primary Care Provider] - 1 Week Discharge Medications: New phenazopyridine [Pyridium] 200 mg tablet 200 mg PO BID PRN (Reason: urinary burning) Qty: 20 0RF Rx Instructions: take with a meal, may cause nausea tamsulosin 0.4 mg capsule 0.4 mg PO DAILY Qty: 30 1RF Rx Instructions: take with meal at dinner oxycodone-acetaminophen [Percocet] 5-325 mg tablet 1 tab PO Q6H PRN (Reason: pain) Qty: 5 0RF Rx Instructions: Partial Fill upon patient request. No Action atorvastatin 20 mg tablet 20 mg PO BEDTIME 90 Days Qty: 90 1RF Discharge Orders: Discharge Order (Routine); Ordered 12/13/23 Ordered By: Sangita Hopkins Diet: Advance to usual diet Activity on Discharge: No heavy lifting
--- NOTE | 2023-12-13 13:07 | MHC.CM.PN ---
IMM delivered. Patient is from home alone. Functionally independent. Reports no services or DME. PCP Morris Rizzo MD HCP Reports agents are son Austin and dtr Kaela, copy requested DP: Medically cleared for dc home self care. Son will transport home.
--- NOTE | 2023-12-13 18:13 | HO.POSTANES ---
Post Anesthesia Evaluation Post Anesthesia Evaluation Date of Service: 12/12/23 Vital Signs: Vital Signs Temp Pulse Resp BP Pulse Ox O2 Del Method 12/13/23 11:34 98.2 F 78 16 157/92 H 99 Room Air 12/13/23 07:28 97.6 F 69 16 151/90 H 99 Room Air Anesthesia: General LMA Mental Status: Awake Pain Control: Satisfactory Nausea/Vomiting: None Hydration: Adequate Anesthesia-Related Issues: No Anes. Related Issues
== END 2023-12-13 13:35 | disposition home or self-care (01) ==
LOC: HO.SSS 13:29 → HO.S3 17:59
PROVIDERS: PCP Internal Medicine; Visit Provider Urology
PROC: 0TJB8ZZ Inspection of Bladder, Via Natural or Artificial Opening Endoscopic (ICD-10-PCS; CPT 52000; principal; 2023-12-12 12:00)
PROC: 0TBB8ZZ Excision of Bladder, Via Natural or Artificial Opening Endoscopic (ICD-10-PCS; CPT 52240; 2023-12-12 12:00)
DX: D49.4 Neoplasm of unspecified behavior of bladder (principal); N13.30 Unspecified hydronephrosis; R31.0 Gross hematuria; R30.0 Dysuria; C67.2 Malignant neoplasm of lateral wall of bladder; N40.0 Benign prostatic hyperplasia without lower urinary tract symptoms; E66.9 Obesity, unspecified; E78.00 Pure hypercholesterolemia, unspecified; Z79.899 Other long term (current) drug therapy; Z87.891 Personal history of nicotine dependence
CPT/HCPCS: 52240; 88307; 88341; 88342; C1758; J0690; J1100; J1170; J2250; J2405; J2704; J3010; J7120; Q9967

== ENCOUNTER → 2023-12-12 07:28 | Outpatient (BNV) | payer MEDICARE, OTHER, SELFPAY | PROVIDERS: PCP Internal Medicine; Visit Provider Urology | DX: N32.89 Other specified disorders of bladder (principal); N13.30 Unspecified hydronephrosis | CPT/HCPCS: 52240 ==

== ENCOUNTER 2023-12-27 15:14 | Outpatient (REF) | payer MEDICARE, OTHER, SELFPAY | END 2023-12-27 15:15 | disposition home or self-care (01) | LOC: HO.LAB 15:14 | PROVIDERS: PCP Internal Medicine; Visit Provider Urology | DX: N39.0 Urinary tract infection, site not specified (principal) | CPT/HCPCS: 51798; 81003; 87086; 99212 ==

== ENCOUNTER 2023-12-27 15:14 | Outpatient (AMB) | payer MEDICARE, OTHER, SELFPAY ==
--- NOTE | 2023-12-27 15:56 | A.OFFVIS_ITS ---
Intake Intake Visit Reasons: Cysto TURBT F/U Intake Note: Patient presents today for Post Op, Cysto TURBT: Urology Medications: Tamsulosin Blood Thinner: none Antibiotic Allergies: none PVR 39 mL Health Companion Required: No Accompanied by: Self / Same As Patient Allergies No Known Allergies [No Known Allergies*] Allergy (Verified 12/27/23 15:57) Medication List - Last Reconciled 12/27/23 by Sangita Hopkins MD atorvastatin 20 mg PO BEDTIME 90 days phenazopyridine (Pyridium) 200 mg PO BID PRN tamsulosin 0.4 mg PO DAILY HPI HPI Comments History of Present Illness Details 12/27/2023--Brady is a 63-year-old male w ho is status post cystoscopy transurethral resection of bladder tumor on 12/12/2023. Preoperative CT scan of the abdomen and pelvis was significant for right hydronephrosis. At the time of the cystoscopy procedure I was unable to visualize the right ureteral orifice. I reviewed pathology results with the patient. Bladder tumor, transurethral resection: -Invasive urothelial carcinoma, high- grade -Tumor invades muscularis propria. I have discussed further treatment recommendations for neoadjuvant chemo with Oncology and evaluation for cystectomy, will referred to Dr. Melinda Orr. Review of chart: 11/22/2023--Brady is a very pleasant 63- year-old male patient of Dr. Rizzo. He has a past medical history hyperlipidemia, obesity, and carpal tunnel syndrome. He presents to the office today for a cystoscopy. Of note, patient was seen approximately 2 weeks ago as a new patient for gross hematuria that initially started 10/14. He had underwent imaging with PCP prior to his new patient appointment here at which time retroperitoneal ultrasound noted right-sided bladder mass with moderate right-sided hydronephrosis. This is likely responsible for the right sided hydronephrosis. Mildly enlarged prostate. Urine cytology from last office visit 11/14--Suspicious for high-grade urothelial carcinoma. He does report a 25-30 year smoking history of approximately 1 pack per day however quit approximately 13 years ago. He does report noting episodes of dysuria with gross hematuria he otherwise denies urinary urgency, urinary frequency, incontinence, nocturia, hematuria, foul smelling urine, changes to urinary stream, flank pain, fever, and or chills. He is happy with his current voiding parameters. He denies any known chemical exposure. In review of patient's chart it appears PSAs are as follows: 11/13--0.5, 10/14--0.8. In office cystoscopy performed: Large right bladder base mass noted unable to differentiate UO. Discussed further treatment options with cystoscopy TURBT. Discussed risks and benefits at length. Discussed potential for right-sided ureteral stent placement given position of bladder tumor and retroperitoneal ultrasound noting right-sided hydronephrosis. All questions were answered. Discussed obtaining CT urogram for further assessment evaluation as well as labs [facility] Medical History Obesity (BMI 30-39.9) Pure hypercholesterolemia Hyperlipemia Carpal tunnel syndrome Surgical History History of hand surgery History of ankle surgery History of cholecystectomy Family History Father Multiple sclerosis, primary progressive Mother No problems noted. 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 Current occupational exposures/hazards: No Cognitive needs: No Hearing needs: No Vision needs: Yes Review of Systems Const All systems reviewed & are unremarkable except as noted in HPI and below Reports no additional complaints Eyes Reports no additional complaints ENT Reports no additional complaints Card Denies dyspnea Resp Denies cough and Denies dyspnea GI Reports no additional complaints Musc Reports no additional complaints Skin/Breast Denies rash and Denies unusual bruising Neuro Reports no additional complaints Psych Reports no additional complaints Endo Reports no additional complaints Pihl/Lymph Reports no additional complaints Aller/Immun Reports no additional complaints Office Procedures Post Void Residual Post Residual Void Post Void Residual (PVR): 39 [id number] Void Residual by ultrasound Results AMB Urinalysis, Automated UA Leukoctes 0 Arnold/uL Last Edit by EMANUEL Cohen on 12/27/23 16:09 UA Nitrite Negative Last Edit by EMANUEL Cohen on 12/27/23 16:09 UA Urobilinogen 0.2 mg/dL Last Edit by EMANUEL Cohen on 12/27/23 16:0 9 UA Protein 30 mg/dL Last Edit by EMANUEL Cohen on 12/27/23 16:09 1+ Clint Sweeney 12/27/23 16:09 UA pH 6.0 Last Edit by EMANUEL Cohen on 12/27/23 16:09 UA Blood 200 Kaveh/uL Last Edit by EMANUEL Cohen on 12/27/23 16:09 3+ Clint Sweeney 12/27/23 16:09 UA Specific Arbon 1.015 Last Edit by EMANUEL Cohen on 12/27/23 16: 09 UA Ketone Negative Last Edit by EMANUEL Cohen on 12/27/23 16:09 UA Bilirubin 0 mg/dL Last Edit by EMANUEL Cohen on 12/27/23 16:09 UA Glucose 0 mg/dL Last Edit by Clint Sweeney Dat on 12/27/23 16:09 Results Reviewed Results Reviewed: Laboratory Last Values Urine pH (Auto) 6.0 12/27/23 16:01 Specific Arbon (Auto) 1.015 12/27/23 16:01 Urine Protein (Auto) 30 mg/dL 12/27/23 16:01 Glucose (UA)(Auto) 0 mg/dL 12/27/23 16:01 Urine Ketones (Auto) Negative 12/27/23 16:01 Urine Blood (Auto) 200 Kaveh/uL 12/27/23 16:01 Urine Nitrite (Auto) Negative 12/27/23 16:01 Urine Bilirubin (Auto) 0 mg/dL 12/27/23 16:01 Urine Urobilinogen (Auto) 0.2 mg/dL 12/27/23 16:01 Leukocyte Esterase (Auto) 0 Arnold/uL 12/27/23 16:01 Collected: 12/12/23 Location: [facility] Received: 12/13/23 Diagnosis Bladder tumor, transurethral resection: -Invasive urothelial carcinoma, high-grade -Tumor invades muscularis propria. -Lymphatic vessel invasion is identified. Bladder, transurethral resection/biopsy Procedure: Transurethral resection Tumor site: Per operative note: right lateral wall Histologic type: Invasive urothelial carcinoma Histologic grade: High-grade Muscularis propria: Present Extent of invasion: Tumor invades muscularis propria. Lymphovascular invasion: Identified Date of Service: 12/06/23 EXAMINATION: CT ABDOMEN AND PELVIS WITHOUT AND WITH CONTRAST CLINICAL INFORMATION: Hematuria COMPARISON: Previous CT of the abdomen and pelvis September 2017 and renal ultrasound August 2023 TECHNIQUE: Noncontrast CT of the abdomen and pelvis is performed followed by split bolus contrast-enhanced images using 85 mL Omnipaque 350 contrast.? Postcontrast imaging is performed during the combined nephrogram and excretion phase. Sagittal and coronal reformatted images were obtained on the technologist's workstation for both the precontrast and postcontrast phases. This CT examination was performed using dose optimization techniques as appropriate, variously including the following: *Automated exposure control *Adjustment of mA and/or kV according to patient size (this includes techniques or standardized protocols for targeted exams where dose is matched to indication/reason for exam; i.e. extremities or head) *Use of iterative reconstruction technique DLP: 1223 mGy-cm FINDINGS: LUNG BASES: The visualized lung bases are unremarkable. LIVER, GALLBLADDER, AND BILIARY TREE: The liver is normal in size, shape, and attenuation. No focal hepatic lesion or biliary ductal dilatation is present. The gallbladder has been removed. PANCREAS: Unremarkable. SPLEEN: Unremarkable. ADRENAL GLANDS: Unremarkable. KIDNEYS AND URETERS: No renal stone or mass. There is moderate right hydronephrosis and down to the bladder. There is a delayed right nephrogram. There is no contrast seen in the right renal collecting system or ureter this is not optimally evaluated. The kidney is normal. No left hydronephrosis. The left renal collecting system and ureter are well opacified with excreted contrast in BLADDER: Large heterogeneous mass in the right side of the bladder involving the right lateral bladder wall, right UVJ region and posterior inferior base of the bladder extending toward the left UVJ region. Appearance is concerning for bladder neoplasm. Mass is irregular in shape and difficult to measure. There is stranding of the adjacent perivesicular fat. There are small right retroperitoneal lymph nodes. GASTROINTESTINAL TRACT: The small and large bowel are unremarkable. The appendix is unremarkable. ABDOMINAL WALL: No significant hernia is appreciated. LYMPH NODES: There are small bilateral retroperitoneal pelvic and lower abdominal retroperitoneal lymph nodes. Largest lymph node is a right external iliac lymph node measuring 6 mm in short axis axial image VASCULAR: Unremarkable. PELVIC VISCERA: Unremarkable. OSSEUS STRUCTURES: Degenerative changes of the spine. No fracture or bone lesion. CT/CT urogram IMPRESSION: Large heterogeneous mass in the right side of the bladder involving the right lateral bladder wall, right UVJ region and posterior inferior base of the bladder extending toward the left UVJ region. Appearance is suggestive of bladder neoplasm. There is stranding of the adjacent perivesicular fat and small retroperitoneal lymph nodes. There is moderate right hydronephrosis and delayed right nephrogram. There is no contrast seen in the right renal collecting system or ureter and this is not optimally evaluated. Assessment & Plan Assessment & Plan (1) Bladder cancer: Code(s): C67.9 - Malignant neoplasm of bladder, unspecified Plan Referral for neoadjuvant chemo with Oncology and evaluation for cystectomy, will referred to Dr. Melinda Orr. Orders: Orders Urine Culture 12/27/23 N39.0 - Urinary tract infection, site not specified XR chest 2V 12/27/23 C67.9 - Malignant neoplasm of bladder, unspecified AMB Urinalysis Automated 12/27/23 Z13.9 - Encounter for screening, unspecified AMB Post Void Residual by ultrasound 12/27/23 N39.8 - Other specified disorders of urinary system Referrals Hematology & Oncology Referral C67.9 - Malignant neoplasm of bladder, unspecified Urology Referral C67.9 - Malignant neoplasm of bladder, unspecified Medications: Refilled phenazopyridine (Pyridium) take with a meal, may cause nausea 200 mg PO BID PRN 20 tabs 0RF urinary burning Patient Instructions: The patient had an opportunity to ask questions regarding treatment plan. All questions were answered. Imaging, Laboratory studies and physical exam results were discussed and reviewed in detail. No major barriers to understanding were identified. The patient expressed understanding and agreement with the above treatment plan. The patient is aware they should contact our office by phone for worsening of their current condition or the appearance of new symptoms. Compliance is encouraged with any medications and followup testing that is ordered. It is a privilege to be allowed the opportunity to participate in the urologic care of your patient. If you have any questions or concerns regarding treatment for the above conditions please do not hesitate to contact me. The office telephone contact is [phone]. This note is constructed in part using voice recognition software. While every effort has been made to ensure accuracy enterprise architect manager errors may have been included. Yours sincerely, Sangita Hopkins MD Coding Level of Care Code Est Pt Level 4 (70832) Diagnoses Bladder cancer C67.9 CPT Codes Post Residual Void - PVR CPT Code: 31948-Grwp Void Residual by ultrasound ([id number])
== END 2023-12-27 16:52 | disposition home or self-care (01) ==
PROVIDERS: PCP Internal Medicine; Visit Provider Urology
DX: C67.9 Malignant neoplasm of bladder, unspecified (principal)
CPT/HCPCS: 99214

== ENCOUNTER → 2024-01-16 10:17 | Outpatient (BNV) | payer MEDICARE, OTHER, SELFPAY | PROVIDERS: PCP Internal Medicine; Referring Provider Urology; Visit Provider Internal Medicine | DX: C67.8 Malignant neoplasm of overlapping sites of bladder (principal) | CPT/HCPCS: 99205; 99214; 99215; G2211 ==

== ENCOUNTER 2024-01-17 15:13 | Outpatient (REF) | payer MEDICARE, OTHER, SELFPAY ==
--- NOTE | ~2024-01-17 | US_ITS ---
EXAMINATION: US RETROPERITONEAL LIMITED (RENAL ONLY) CLINICAL INFORMATION: Hydronephrosis. COMPARISON: CT urogram 12/06/2023. Ultrasound kidneys and bladder 10/04/2023. MRI abdomen 05/15/2017. Ultrasound abdomen limited 05/13/2017. TECHNIQUE: Real-time imaging of the kidneys. Technically limited study secondary to bowel gas. FINDINGS: RIGHT KIDNEY: 10.3 x 5.6 x 5.1 cm (SAG x AP x TRV). The kidney is normal in size, contour, and echogenicity. Renal cortical thickness is normal. No renal calculi or focal parenchymal lesions. Moderate right-sided hydronephrosis is present similar to prior studies. LEFT KIDNEY: 11.3 x 6.0 x 6.0 cm (SAG x AP x TRV). The kidney is normal in size, contour, and echogenicity. Renal cortical thickness is normal. No calculi or focal parenchymal lesions. No hydronephrosis. US/US renal BI IMPRESSION: Moderate right-sided hydronephrosis similar to prior studies.
== END 2024-01-17 15:14 | disposition home or self-care (01) ==
LOC: HO.US 15:13
PROVIDERS: PCP Internal Medicine; Visit Provider Internal Medicine
DX: C67.9 Malignant neoplasm of bladder, unspecified (principal); N13.30 Unspecified hydronephrosis
CPT/HCPCS: 76775

== ENCOUNTER → 2024-01-23 10:34 | Outpatient (REF) | payer MEDICARE, OTHER, SELFPAY ==
--- NOTE | ~2024-01-23 | NM_ITS ---
EXAMINATION: NM BONE SCAN OF THE WHOLE BODY CLINICAL INFORMATION: Staging bladder cancer. COMPARISON: No previous bone scan or recent radiographs are available for comparison. CT urogram dated 12/06/2023 is available for comparison. TECHNIQUE: Multiple gamma scintillation camera images of the whole body were performed 2.75 hours following the intravenous administration of 39 mCi Tc-99m MDP. FINDINGS: In the head, no significant abnormalities are present. In the thoracic cage and upper extremities, there is mildly increased activity in the acromioclavicular joints bilaterally. In the spine, there is minimally increased activity in a small focus in the right posterior elements of the mid cervical spine, likely due to facet arthropathy. There is also minimally increased activity in the left side and likely in the posterior elements or left transverse process in the upper lumbar spine at the L1-L2 level. In the pelvis, there is mildly increased activity in the superior lip of the right acetabulum. In the lower extremities, there is mildly increased activity in the right patella and in a few mild foci in both feet and the left ankle. No other definite bony abnormalities are noted. The urinary bladder and faint visualization of both kidneys are noted. The CT scan dated 12/06/2023 shows degenerative changes including several subchondral cysts in the superior lip of the right acetabulum that correspond to bone scan abnormalities described above. There is also a left-sided bridging osteophyte present laterally in the L1-L2 disc space that corresponds to mild bone scan abnormality described above at this site. NM/NM bone scan whole body IMPRESSION: Mild nonspecific abnormalities are noted as described above and these are all likely arthritic or traumatic in etiology. None of these abnormalities is strongly suspicious for metastatic disease.
--- NOTE | ~2024-01-23 | CT_ITS ---
EXAMINATION: CT CHEST WITHOUT CONTRAST CLINICAL INFORMATION: Staging bladder cancer. COMPARISON: CT Urogram 12/06/2023. TECHNIQUE: Multidetector volumetric CT imaging of the chest was done. Axial MIP volume rendering provided. Sagittal and coronal reformatted images were obtained. This CT examination was performed using dose optimization techniques as appropriate, variously including the following: *Automated exposure control *Adjustment of mA and/or kV according to patient size (this includes techniques or standardized protocols for targeted exams where dose is matched to indication/reason for exam; i.e. extremities or head) *Use of iterative reconstruction technique DLP: 371 mGy-cm FINDINGS: LUNGS: Some minimal emphysematous changes are present. Scattered micronodules are seen, the largest measuring only 4 mm (for example right lower lobe 5:351). Duggan images of all have been saved. Only a small portion of the lungs were included at the time of the prior CT abdomen and pelvis, and 2 small lung nodules that are included in that portion of the scan are unchanged (for example a right lower lobe 3 mm nodule in a subpleural location (5:464 compare prior 9:55). The lungs are otherwise clear with no evidence of inflammation or nodules. MEDIASTINUM: The mediastinum is normal. CORONARY ARTERY CALCIFICATION: Mild. PLEURA: There is no pleural effusion. No pleural mass or thickening. AXILLA: No lymphadenopathy. UPPER ABDOMEN: Status post cholecystectomy. Right-sided hydronephrosis is still present when compared to the 12/06/2023 study. OSSEOUS STRUCTURES: No bony destructive lesions are seen. CT/CT chest wo IV con IMPRESSION: 1. Scattered micronodules are seen, the largest measuring only 4 mm. No convincing evidence of pulmonary metastases. Follow up per oncology protocol. 2. Right-sided hydronephrosis is still present when compared to 12/06/2023 study. Fleischner guidelines do not apply to oncology patients.
== END ==
LOC: HO.NUCMED 10:34
PROVIDERS: PCP Internal Medicine; Visit Provider Internal Medicine
DX: C67.9 Malignant neoplasm of bladder, unspecified (principal)
CPT/HCPCS: 71250; 78306; A9503

== ENCOUNTER 2024-02-12 10:31 | Day surgery (SDC) | payer MEDICARE, OTHER, SELFPAY ==
[2024-02-12] VITALS (8 sets, daily range): BP systolic 141–159; BP diastolic 93–104; PULSE 80–93; RESP 16–20; TEMP 36.1–36.6; O2SAT 96–100; BMI 31.5
--- NOTE | ~2024-02-12 | IR_ITS ---
History: Malignant distal ureteral obstruction Procedure performed: 1. Ultrasound and fluoroscopic guided placement of a right-sided nephrostomy roll tube setter: Kacie Gomez MD FSIR Anesthesia: IV moderate sedation with intravenous Fentanyl and Versed was administered under my direct supervision with continuous physiologic monitoring for a total of 30 minutes; 8 mL 1% lidocaine Specimen: None. Drain: 8 Georgian locking pigtail catheter Estimated blood loss: Minimal Complications: None Procedure in detail: Informed and written consent was obtained and placed in the chart. The patient was positioned prone on the angiography table with sterile preparation of the right flank. Ultrasound of the right kidney showed hydronephrosis and hydroureter. A posterior inferior calyx was identified for access. 1% lidocaine was injected subcutaneously and extended to the renal capsule. A small incision was made in the skin with a #11 blade. Through the incision and under ultrasound guidance with permanent recordings and direct visualization of needle penetration into a posterior inferior calyx, the renal collecting system was catheterized in an antegrade fashion. We transitioned for an Amplatz wire over which serial dilatation was performed until an 8 Georgian locking pigtail catheter could be placed and formed in the renal pelvis. An antegrade nephrostogram showed hydronephrosis and hydroureter with critical narrowing of the UVJ. The tube was sutured to the skin and connected to gravity drainage. An overlying sterile dressing was applied. Summary: Successful ultrasound and fluoroscopic guided placement of a nephrostomy tube in the right kidney.
--- NOTE | 2024-02-12 12:54 | MHC.SHP ---
Pre-Procedural Eval Section A - 24 Hr Update-Section A only Date of Service: 02/12/24 Section B - Complete if H&P > 30 days Chief Complaint: MALIGNANT NEOPLASM OF BLADDER,RIGHT Details of Present Illness: 63 y.o man with bladder cancer and right hydronephrosis. Presents for a right nephrostomy tube Relevant Family History (Specify if Yes): No Relevant Social History: None Present Medications: see Short Stay Collaborative assessment Medical History: Significant History History of Previous Operations: Relevant previous surgery/procedure and date(s) Allergies: Allergies Allergy/AdvReac Type Severity Reaction Status Date / Time No Known Allergies Allergy Verified 02/02/24 15:38 [No Known Allergies*] Review of Systems Sugical H&P ROS: Negative: Constitution, Cardiovascular, Respiratory and Integumentary Exam Surgical H&P Exam: Normal: Heart, Normal: Lungs, Normal: Skin and Normal: Neurological and Not Evaluated: HEENT Plan Diagnosis/Plan: Unchanged I have reviewed the history and physical and performed a pertinent physical examination on my patient. No changes have occurred unless specified. Time Spent With Patient Time: Total time managing care of this patient today ____ minutes.
[2024-02-12] MEDS: Acetaminophen 325 MG TABLET 650 MG PO (15:33)
== END 2024-02-12 17:07 | disposition home or self-care (01) ==
PROVIDERS: Radiology Vascular & Interventional Radiology; PCP Internal Medicine; Visit Provider Internal Medicine
DX: C67.9 Malignant neoplasm of bladder, unspecified (principal); N13.30 Unspecified hydronephrosis; E78.00 Pure hypercholesterolemia, unspecified; E66.9 Obesity, unspecified; Z68.32 Body mass index [BMI] 32.0-32.9, adult; Z90.49 Acquired absence of other specified parts of digestive tract; Z87.891 Personal history of nicotine dependence; Z98.890 Other specified postprocedural states
CPT/HCPCS: 50432; 86850; 86900; 86901; 99152; C1729; C1769; C1887; C1892; C1894; J0696; J2250; J2310; J3010; Q9967

== ENCOUNTER → 2024-02-12 13:05 | Outpatient (BNV) | payer MEDICARE, OTHER, SELFPAY | PROVIDERS: PCP Internal Medicine; Visit Provider Radiology Vascular & Interventional Radiology | DX: N13.30 Unspecified hydronephrosis (principal) | CPT/HCPCS: 50432 ==

== ENCOUNTER → 2024-02-13 14:08 | Outpatient (BNVA) | payer MEDICARE, OTHER, SELFPAY | PROVIDERS: PCP Internal Medicine; Visit Provider Nurse Practitioner Family ==

== ENCOUNTER → 2024-02-15 15:20 | Outpatient (BNVA) | payer MEDICARE, OTHER, SELFPAY | PROVIDERS: PCP Internal Medicine; Visit Provider Nurse Practitioner Family ==

== ENCOUNTER 2024-02-16 07:33 | Day surgery (SDC) | payer MEDICARE, OTHER, SELFPAY ==
--- NOTE | ~2024-02-16 | IR_ITS ---
CLINICAL HISTORY: Bladder cancer. The patient presents to interventional radiology for placement of a port for chemotherapy. PROCEDURES: 1. Real-time ultrasound-guided access into the right internal jugular vein after documentation of selected vessel patency, and permanent image storing in the patient records. 2. Placement of a 6 Belarusian single-lumen power port. CLINICIAN: Yoseph Bradshaw PA-C MEDICATIONS: - Versed 1.5 mg, Fentanyl 75 mcg, Lidocaine 1% 10 mL SQ -Antibiotics: Ancef 2g -For additional details, please see nursing flowsheet. Complications: None. Estimated blood loss: <5 ml Specimens: None. Contrast: None. Fluoroscopy time: 2.3 min MODERATE SEDATION TIME: 44 min PROCEDURE NOTE: The procedure, risks, benefits, and alternatives were carefully explained to the patient and written informed consent was obtained. The patient was placed supine on the fluoroscopy table. A timeout was performed. The right neck and chest was prepped and draped in usual sterile fashion. Maximum barrier technique was utilized. Local anesthesia was administered to the access site with 1% lidocaine. Under ultrasound guidance, the right internal jugular vein was accessed with a 5 fr micropuncture set. A 0.035 in wire was advanced into the IVC. A peel-away sheath was advanced over the wire and into the SVC, and the wire was removed. Next, subcutaneous lidocaine was administered to the chest. The port pocket was created after the skin incision, utilizing blunt dissection. Using blunt dissection, a subcutaneous tunnel was created that connects from the port pocket to the venotomy site. Through the peel-away sheath, the 6 Belarusian port catheter was placed. The catheter position was verified with fluoroscopy to be at the superior vena cava/right atrial junction. The port was connected to the catheter and was placed in the pocket. The venotomy site was closed with a 3-0 Vicryl subcutaneous suture. The port incision site was closed with interrupted 3-0 Vicryl subcutaneous sutures and surgical glue. Prior to closing the skin, 1 g of Ancef solution was placed in the pocket. The port was tested, flushed, and packed with heparin per routine protocol. The patient tolerated the procedure well. The patient was stable after the procedure and was transferred to the PACU. The procedure was performed under moderate sedation and with a dedicated nurse with continuous monitoring of vital signs. A permanent image of the ultrasound the neck and fluoroscopic image of the chest was saved and sent to PACS. FINDINGS: 1. Patent right internal jugular vein 2. Placement of a 6 Belarusian single lumen power port. 3. Port flushes and aspirates very well with a 10 mL syringe. No pneumothorax. IR/IR cvc insert tunnel w prt/homicide squad commanding officer IMPRESSION: Placement of a 6 Belarusian single-lumen power port. PLAN: - The patient will be discharged home when stable by sedation protocol. - Port may be used immediately. This procedure was performed by Yoseph Bradshaw PA-C, and directly supervised by Dr. Francis
[2024-02-16 08:51] VITALS: BP 178/96; PULSE 77; RESP 18; TEMP 37; O2SAT 97; BMI 31.8
--- NOTE | 2024-02-16 10:05 | MHC.SHP ---
Pre-Procedural Eval Section A - 24 Hr Update-Section A only Date of Service: 02/16/24 Section B - Complete if H&P > 30 days Chief Complaint: MALIGNANT NEOPLASM OF BLADDER Details of Present Illness: 63 y/o man with bladder cancer. He presents for a port for chemotherapy Relevant Family History (Specify if Yes): No Relevant Social History: None Present Medications: see Short Stay Collaborative assessment Medical History: Significant History History of Previous Operations: Relevant previous surgery/procedure and date(s) Allergies: Allergies Allergy/AdvReac Type Severity Reaction Status Date / Time No Known Allergies Allergy Verified 02/02/24 15:38 [No Known Allergies*] Review of Systems Sugical H&P ROS: Negative: Constitution, Cardiovascular and Respiratory and Yes, Specify: Musculoskeletal (soreness at recently placed right nephrostomy tube) Exam Surgical H&P Exam: Normal: Heart, Normal: Lungs, Normal: Skin and Normal: Neurological and Not Evaluated: HEENT Plan Diagnosis/Plan: Unchanged I have reviewed the history and physical and performed a pertinent physical examination on my patient. No changes have occurred unless specified. Time Spent With Patient Time: Total time managing care of this patient today ____ minutes.
[2024-02-16] MEDS: Lidocaine HCl 1 % MPF 30 ML VIAL 10 ML SUBCUT (11:15)
[2024-02-16] MEDS: Heparin Sodium,Porcine Flush 500 UNIT/5 ML SYRINGE IVFLUSH (11:16)
[2024-02-16 11:55] VITALS: BP 154/99; PULSE 80; RESP 12; TEMP 36.3; O2SAT 98
[2024-02-16 12:10] VITALS: BP 159/103; PULSE 81; RESP 16; TEMP 36.3; O2SAT 97
[2024-02-16] MEDS: Acetaminophen 325 MG TABLET 650 MG PO (12:28)
== END 2024-02-16 12:32 | disposition home or self-care (01) ==
PROVIDERS: Radiology Vascular & Interventional Radiology; PCP Internal Medicine; Visit Provider Internal Medicine
DX: Z45.2 Encounter for adjustment and management of vascular access device (principal); C67.8 Malignant neoplasm of overlapping sites of bladder; E78.00 Pure hypercholesterolemia, unspecified; E66.9 Obesity, unspecified; Z68.32 Body mass index [BMI] 32.0-32.9, adult; Z98.890 Other specified postprocedural states
CPT/HCPCS: 36561; 99152; 99153; C1769; C1788; J0690; J1642; J1644; J2250; J2310; J3010

== ENCOUNTER → 2024-02-16 10:05 | Outpatient (BNV) | payer MEDICARE, OTHER, SELFPAY | PROVIDERS: PCP Internal Medicine; Visit Provider Physician Assistant Surgical | DX: C67.9 Malignant neoplasm of bladder, unspecified (principal) | CPT/HCPCS: 36561; 76937; 77001; 99152 ==

== ENCOUNTER → 2024-02-19 15:15 | Outpatient (BNVA) | payer MEDICARE, OTHER, SELFPAY | PROVIDERS: PCP Internal Medicine; Visit Provider Nurse Practitioner Family ==

== ENCOUNTER → 2024-02-26 15:18 | Outpatient (BNVA) | payer MEDICARE, OTHER, SELFPAY | PROVIDERS: PCP Internal Medicine; Visit Provider Nurse Practitioner Family ==

== ENCOUNTER 2024-03-04 14:18 | Outpatient (REF) | payer MEDICARE, OTHER, SELFPAY ==
[2024-03-04 14:44] LABS: MANUAL DIFF FLAG NO
[2024-03-04 14:46] LABS: Basophils Percent Auto 0.9 % (0-2); Eosinophils Absolute Auto 0.1 X10*3/uL (0.0-0.4); Eosinophils Percent Auto 1.6 % (0-4); Hematocrit 36.1 % (42.0-52.0); Hemoglobin 12.3 g/dl (14.0-18.0); Imm Gran Abs Auto 0.01 X10*3/uL (0.00-0.03); Imm Gran Pct Auto 0.2 % (0.0-0.4); Lymphocytes Absolute Auto 1.2 X10*3/uL (1.2-4.9); Lymphocytes Percent Auto 28.2 % (20-40); Mean Corpuscular HGB Conc 34.1 g/dl (31.0-36.0); Mean Platelet Volume 9.1 fL (9.4-12.4); Monocytes Absolute Auto 0.1 X10*3/uL (0.1-1.2); Monocytes Percent Auto 2.3 % (2-11); Neutrophils Absolute Auto 2.9 x10*3/uL (2.0-8.3); Neutrophils Percent Auto 66.8 % (45-73); Platelet Count 168 X10*3/uL (160-400); Red Cell Distribution Width 12.5 % (11.0-16.0); White Blood Count 4.3 X10*3/uL (4.8-10.8)
[2024-03-04 15:04] LABS: Alanine Aminotransferase 21 U/L (0-40); Albumin Level 3.7 g/dL (3.5-5.0); Alkaline Phosphatase 114 U/L (39-117); Anion Gap 12 (12-20); Aspartate Amino Transferase 16 U/L (5-37); Bilirubin Total 0.4 mg/dL (0.0-1.0); Blood Urea Nitrogen 37 mg/dL (9-16); Calcium 9.2 mg/dL (8.4-10.2); Carbon Dioxide 24 mmol/L (22-29); Chloride 105 mmol/L (96-108); Estimated Glomerular Filt Rate 50; Glucose Random 95 mg/dL (60-115); Potassium 5.3 mmol/L (3.3-5.1); Sodium 136 mmol/L (135-145); Total Protein 6.7 g/dL (6.5-8.0)
== END 2024-03-04 14:19 | disposition home or self-care (01) ==
LOC: HO.LAB 14:18
PROVIDERS: PCP Internal Medicine; Visit Provider Internal Medicine
DX: C67.9 Malignant neoplasm of bladder, unspecified (principal)
CPT/HCPCS: 36415; 80053; 83735; 85025

== ENCOUNTER → 2024-03-05 14:18 | Outpatient (BNVA) | payer MEDICARE, OTHER, SELFPAY | PROVIDERS: PCP Internal Medicine; Visit Provider Nurse Practitioner Family ==

== ENCOUNTER → 2024-03-12 15:19 | Outpatient (BNVA) | payer MEDICARE, OTHER, SELFPAY | PROVIDERS: PCP Internal Medicine; Visit Provider Nurse Practitioner Family ==

== ENCOUNTER 2024-03-16 08:08 | Outpatient (REF) | payer MEDICARE, OTHER, SELFPAY ==
[2024-03-16 08:43] LABS: Basophils Percent Auto 0.5 % (0-2); Eosinophils Percent Auto 2.1 % (0-4); Hematocrit 30.1 % (42.0-52.0); Hemoglobin 10.3 g/dl (14.0-18.0); Imm Gran Abs Auto 0.01 X10*3/uL (0.00-0.03); Imm Gran Pct Auto 0.5 % (0.0-0.4); Lymphocytes Percent Auto 50.3 % (20-40); MANUAL DIFF FLAG SCAN; Mean Corpuscular HGB Conc 34.2 g/dl (31.0-36.0); Mean Corpuscular Hemoglobin 29.8 pg (27.0-33.0); Mean Platelet Volume 10.1 fL (9.4-12.4); Monocytes Absolute Auto 0.2 X10*3/uL (0.1-1.2); Monocytes Percent Auto 11.3 % (2-11); Neutrophils Absolute Auto 0.7 x10*3/uL (2.0-8.3); Neutrophils Percent Auto 35.3 % (45-73); Red Blood Count 3.46 X10*6/uL (4.60-5.80); Red Cell Distribution Width 12.3 % (11.0-16.0); SCAN SMEAR FLAG 1
[2024-03-16 08:50] LABS: Platelet Count 86 X10*3/uL (160-400)
[2024-03-16 09:08] LABS: SLIDE REVIEW VERIFIED
[2024-03-16 09:21] LABS: Alanine Aminotransferase 12 U/L (0-40); Albumin Level 3.5 g/dL (3.5-5.0); Alkaline Phosphatase 129 U/L (39-117); Anion Gap 12 (12-20); Aspartate Amino Transferase 16 U/L (5-37); Bilirubin Total 0.2 mg/dL (0.0-1.0); Blood Urea Nitrogen 39 mg/dL (9-16); Calcium 9.1 mg/dL (8.4-10.2); Carbon Dioxide 25 mmol/L (22-29); Chloride 108 mmol/L (96-108); Estimated Glomerular Filt Rate 44; Glucose Random 86 mg/dL (60-115); Magnesium 1.9 mg/dL (1.6-2.6); Potassium 4.6 mmol/L (3.3-5.1); Sodium 140 mmol/L (135-145); Total Protein 6.4 g/dL (6.5-8.0)
== END 2024-03-16 08:09 | disposition home or self-care (01) ==
LOC: HO.LAB 08:08
PROVIDERS: PCP Internal Medicine; Visit Provider Internal Medicine
DX: C67.9 Malignant neoplasm of bladder, unspecified (principal)
CPT/HCPCS: 36415; 80053; 83735; 85025

== ENCOUNTER → 2024-03-20 15:16 | Outpatient (BNVA) | payer MEDICARE, OTHER, SELFPAY | PROVIDERS: PCP Internal Medicine; Visit Provider Nurse Practitioner Family ==

== ENCOUNTER 2024-03-25 15:16 | Outpatient (REF) | payer MEDICARE, OTHER, SELFPAY ==
[2024-03-25 15:39] LABS: Hematocrit 28.9 % (42.0-52.0); Mean Corpuscular HGB Conc 34.6 g/dl (31.0-36.0); Mean Corpuscular Volume 86.8 fL (80.0-98.0); Mean Platelet Volume 8.3 fL (9.4-12.4); Platelet Count 357 X10*3/uL (160-400); Red Blood Count 3.33 X10*6/uL (4.60-5.80); Red Cell Distribution Width 13.2 % (11.0-16.0); White Blood Count 2.6 X10*3/uL (4.8-10.8)
[2024-03-25 15:56] LABS: Alanine Aminotransferase 15 U/L (0-40); Albumin Level 3.6 g/dL (3.5-5.0); Alkaline Phosphatase 122 U/L (39-117); Anion Gap 11 (12-20); Aspartate Amino Transferase 17 U/L (5-37); Bilirubin Total 0.3 mg/dL (0.0-1.0); Blood Urea Nitrogen 33 mg/dL (9-16); Carbon Dioxide 25 mmol/L (22-29); Chloride 103 mmol/L (96-108); Estimated Glomerular Filt Rate 47; Glucose Random 90 mg/dL (60-115); Magnesium 1.7 mg/dL (1.6-2.6); Potassium 4.7 mmol/L (3.3-5.1); Sodium 134 mmol/L (135-145); Total Protein 6.4 g/dL (6.5-8.0)
[2024-03-25 16:12] LABS: Band Neutrophils Percent 2 % (3-5); Basophils Percent Manual 1 % (0-2); Eosinophils Absolute Manual 0.1 X10*3/uL (0.0-0.4); Eosinophils Percent Manual 2 % (0-4); Lymphocytes Absolute Manual 1.2 X10*3/uL (1.2-4.9); Lymphocytes Percent Manual 45 % (20-40); Metamyelocytes Percent 1 %; Monocytes Absolute Manual 0.1 X10*3/uL (0.1-1.2); Monocytes Percent Manual 4 % (2-11); Neutrophils Absolute Manual 1.2 X10*3/uL (2.0-8.3); Neutrophils Percent Manual 45 % (45-73); Platelet Estimate NORMAL (NORMAL); Platelet Morphology Comment NORMAL; RBC Morphology NORMAL
== END 2024-03-25 15:17 | disposition home or self-care (01) ==
LOC: HO.LAB 15:16
PROVIDERS: PCP Internal Medicine; Visit Provider Internal Medicine
DX: C67.9 Malignant neoplasm of bladder, unspecified (principal)
CPT/HCPCS: 36415; 80053; 83735; 85007; 85025; 85027

== ENCOUNTER 2024-03-28 15:19 | Outpatient (AMB) | payer MEDICARE, OTHER, SELFPAY ==
--- NOTE | 2024-03-28 15:29 | A.OFFVIS_ITS ---
Intake Visit Reasons: 3m follow up Intake Note: Patient presents today 3 months follow-up: Urology Medications: Tamsulosin Blood Thinner: none Antibiotic Allergies: none Foreign Exchange Position Clerk Required: No Accompanied by: Self / Same As Patient Allergies No Known Allergies [No Known Allergies*] Allergy (Verified 03/26/24 09:12) HPI Comments Details: 03/28/24--Brady has been diagnosed with invasive bladder cancer. s/p TURBT 12/12/23. Clinical stage T2/[address] chest and bone scan did not show evidence of metastatic disease. He had placement of right nephrostomy tube in the right kidney on 02/12/2024. He started on neoadjuvant chemotherapy 02/27/2024. He has had consultation with Dr. Lawrence at [facility] who has discussed radical cystoprostatectomy with possible continent diversion. He states he is scheduled to have a colonoscopy prior to procedure and tentative date for cystectomy in July. He feels he is tolerating the chemotheray well. I have evaluated the right nephrotomy tube site, no signes of infection, dressing changed. He has scheduled visits with my nurse to check nephrostomy. Review of chart: 12/27/2023--Brady is a 63-year-old male who is status post cystoscopy transurethral resection of bladder tumor on 12/12/2023. Preoperative CT scan of the abdomen and pelvis was significant for right hydronephrosis. At the time of the cystoscopy procedure I was unable to visualize the right ureteral orifice. I reviewed pathology results with the patient. Bladder tumor, transurethral resection: -Invasive urothelial carcinoma, high- grade -Tumor invades muscularis propria. I have discussed further treatment recommendations for neoadjuvant chemo with Oncology and [facility]--Brady is a very pleasant 63-year-old male patient of Dr. Rizzo. He has a past medical history hyperlipidemia, obesity, and carpal tunnel syndrome. He presents to the office today for a cystoscopy. Of note, patient was seen approximately 2 weeks ago as a new patient for gross hematuria that initially started 10/14. He had underwent imaging with PCP prior to his new patient appointment here at which time retroperitoneal ultrasound noted right-sided bladder mass with moderate right-sided hydronephrosis. This is likely responsible for the right sided hydronephrosis. Mildly enlarged prostate. Urine cytology from last office visit 11/14--Suspicious for high-grade urothelial carcinoma. He does report a 25-30 year smoking history of approximately 1 pack per day however quit approximately 13 years ago. He does report noting episodes of dysuria with gross hematuria he otherwise denies urinary urgency, urinary frequency, incontinence, nocturia, hematuria, foul smelling urine, changes to urinary stream, flank pain, fever, and or chills. He is happy with his current voiding parameters. He denies any known chemical exposure. In review of patient's chart it appears PSAs are as follows: 11/13--0.5, 10/14--0.8. In office cystoscopy performed: Large right bladder mass noted unable to differentiate UO. Discussed further treatment options with cystoscopy TURBT. Discussed risks and benefits at length. Discussed potential for right-sided ureteral stent placement given position of bladder tumor and retroperitoneal ultrasound noting right-sided hydronephrosis. All questions were answered. Discussed obtaining CT urogram for further assessment evaluation as well as labs [facility] Medical History Obesity (BMI 30-39.9) Pure hypercholesterolemia Hyperlipemia Carpal tunnel syndrome Surgical History History of hand surgery History of ankle surgery History of cholecystectomy Family History Father Multiple sclerosis, primary progressive Mother No problems noted. 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 Current occupational exposures/hazards: No Cognitive needs: No Hearing needs: No Vision needs: Yes Review of Systems Const All systems reviewed & are unremarkable except as noted in HPI and below Reports no additional complaints Eyes Reports no additional complaints ENT Reports no additional complaints Card Reports no additional complaints Resp Reports no additional complaints GI Reports no additional complaints Reports as per HPI Musc Reports no additional complaints Skin/Breast Reports system reviewed and no additional complaints, except as documented Neuro Reports no additional complaints Psych Reports no additional complaints Endo Reports no additional complaints Phil/Lymph Reports no additional complaints Aller/Immun Reports no additional complaints Assessment & Plan Assessment & Plan (1) Bladder cancer: Code(s): C67.9 - Malignant neoplasm of bladder, unspecified Category: Medical (2) Invasive carcinoma of urinary bladder: Code(s): C67.9 - Malignant neoplasm of bladder, unspecified Category: Medical Plan Patient completing neoadjuvant chemotherapy, Radical cystectomy with ileal loop scheduled for July Right nephrostomy tube drainaing well Orders: Orders AMB Post Void Residual by ultrasound 03/28/24 N39.8 - Other specified disorders of urinary system AMB Urinalysis Automated 03/28/24 Z13.9 - Encounter for screening, unspecified Patient Instructions: The patient had an opportunity to ask questions regarding treatment plan. The patient expressed understanding and agreement with the above treatment plan. The patient is aware they should contact our office by phone for worsening of their current condition or the appearance of new symptoms. Compliance is encouraged with any medications and followup testing that is ordered. It is a privilege to be allowed the opportunity to participate in the urologic care of your patient. If you have any questions or concerns regarding treatment for the above conditions please do not hesitate to contact me. The office telephone contact is [phone]. This note is constructed in part using voice recognition software. While every effort has been made to ensure accuracy athletic monitor errors may have been included. Yours sincerely, Sangita Hopkins MD Coding Level of Care Code Est Pt Level 4 (41960) Diagnoses Bladder cancer C67.9 Invasive carcinoma of urinary bladder C67.9 Time Spent (min) 30
== END 2024-03-28 16:20 | disposition home or self-care (01) ==
PROVIDERS: PCP Internal Medicine; Visit Provider Urology
DX: C67.9 Malignant neoplasm of bladder, unspecified (principal)
CPT/HCPCS: 99214

== ENCOUNTER → 2024-03-28 15:19 | Outpatient (BNVA) | payer MEDICARE, OTHER, SELFPAY | PROVIDERS: PCP Internal Medicine; Visit Provider Urology | DX: C67.9 Malignant neoplasm of bladder, unspecified (principal); Z43.6 Encounter for attention to other artificial openings of urinary tract | CPT/HCPCS: 99212 ==

== ENCOUNTER 2024-04-08 14:18 | Outpatient (REF) | payer MEDICARE, OTHER, SELFPAY ==
[2024-04-08 14:38] LABS: Hematocrit 26.5 % (42.0-52.0); Hemoglobin 8.9 g/dl (14.0-18.0); Mean Corpuscular HGB Conc 33.6 g/dl (31.0-36.0); Mean Corpuscular Hemoglobin 30.3 pg (27.0-33.0); Mean Corpuscular Volume 90.1 fL (80.0-98.0); Mean Platelet Volume 9.6 fL (9.4-12.4); NRBC Pct Auto 0.2 /100WBC (0.0-0.2); Platelet Count 160 X10*3/uL (160-400); Red Blood Count 2.94 X10*6/uL (4.60-5.80); Red Cell Distribution Width 16.1 % (11.0-16.0); White Blood Count 9.4 X10*3/uL (4.8-10.8)
[2024-04-08 15:03] LABS: Band Neutrophils Percent 6 % (3-5); Eosinophils Absolute Manual 0.1 X10*3/uL (0.0-0.4); Eosinophils Percent Manual 1 % (0-4); Lymphocytes Absolute Manual 1.7 X10*3/uL (1.2-4.9); Lymphocytes Percent Manual 18 % (20-40); Metamyelocytes Absolute 0.2 X10*3/uL; Metamyelocytes Percent 2 %; Monocytes Absolute Manual 0.7 X10*3/uL (0.1-1.2); Monocytes Percent Manual 7 % (2-11); Myelocytes Absolute 0.2 X10*/uL; Myelocytes Percent 2 %; Neutrophils Absolute Manual 6.6 X10*3/uL (2.0-8.3); Neutrophils Percent Manual 64 % (45-73)
[2024-04-08 15:05] LABS: Polychromasia 1+ (0-2) /OIF; RBC Morphology NOTED
[2024-04-08 15:06] LABS: Platelet Estimate NORMAL (NORMAL); Platelet Morphology Comment NORMAL
[2024-04-08 17:22] LABS: Alanine Aminotransferase 11 U/L (0-40); Albumin Level 3.5 g/dL (3.5-5.0); Alkaline Phosphatase 129 U/L (39-117); Anion Gap 10 (12-20); Aspartate Amino Transferase 20 U/L (5-37); Bilirubin Total 0.3 mg/dL (0.0-1.0); Blood Urea Nitrogen 24 mg/dL (9-16); Calcium 8.9 mg/dL (8.4-10.2); Carbon Dioxide 25 mmol/L (22-29); Chloride 107 mmol/L (96-108); Cholesterol 169 mg/dL (<200); Estimated Glomerular Filt Rate 46; Glucose Random 89 mg/dL (60-115); HDL Cholesterol 41 mg/dL (>40); LDL Cholesterol Calculated 116 mg/dL (<100); Magnesium 1.8 mg/dL (1.6-2.6); Potassium 4.4 mmol/L (3.3-5.1); Sodium 138 mmol/L (135-145); Total Protein 6.4 g/dL (6.5-8.0); Triglycerides 62 mg/dL (<150)
== END 2024-04-08 14:19 | disposition home or self-care (01) ==
LOC: HO.LAB 14:18
PROVIDERS: PCP Internal Medicine; Visit Provider Internal Medicine
DX: C67.9 Malignant neoplasm of bladder, unspecified (principal); E78.5 Hyperlipidemia, unspecified
CPT/HCPCS: 36415; 80053; 80061; 83735; 85007; 85027

== ENCOUNTER 2024-04-15 11:17 | Outpatient (REF) | payer MEDICARE, OTHER, SELFPAY ==
[2024-04-15 11:46] LABS: MANUAL DIFF FLAG NO
[2024-04-15 11:48] LABS: Basophils Percent Auto 0.8 % (0-2); Hematocrit 25.9 % (42.0-52.0); Imm Gran Abs Auto 0.02 X10*3/uL (0.00-0.03); Imm Gran Pct Auto 0.5 % (0.0-0.4); Lymphocytes Percent Auto 25.8 % (20-40); Mean Corpuscular HGB Conc 34.7 g/dl (31.0-36.0); Mean Corpuscular Hemoglobin 31.1 pg (27.0-33.0); Mean Corpuscular Volume 89.6 fL (80.0-98.0); Mean Platelet Volume 8.5 fL (9.4-12.4); Monocytes Absolute Auto 0.2 X10*3/uL (0.1-1.2); Monocytes Percent Auto 5.5 % (2-11); Neutrophils Absolute Auto 2.7 x10*3/uL (2.0-8.3); Neutrophils Percent Auto 66.4 % (45-73); Platelet Count 291 X10*3/uL (160-400); Red Blood Count 2.89 X10*6/uL (4.60-5.80); Red Cell Distribution Width 16.1 % (11.0-16.0)
[2024-04-15 12:06] LABS: Alanine Aminotransferase 13 U/L (0-40); Albumin Level 3.6 g/dL (3.5-5.0); Alkaline Phosphatase 122 U/L (39-117); Anion Gap 11 (12-20); Aspartate Amino Transferase 17 U/L (5-37); Bilirubin Total 0.2 mg/dL (0.0-1.0); Blood Urea Nitrogen 40 mg/dL (9-16); Calcium 8.7 mg/dL (8.4-10.2); Carbon Dioxide 26 mmol/L (22-29); Chloride 102 mmol/L (96-108); Estimated Glomerular Filt Rate 36; Glucose Random 111 mg/dL (60-115); Potassium 5.1 mmol/L (3.3-5.1); Sodium 134 mmol/L (135-145); Total Protein 6.4 g/dL (6.5-8.0)
== END 2024-04-15 11:18 | disposition home or self-care (01) ==
LOC: HO.LAB 11:17
PROVIDERS: PCP Internal Medicine; Visit Provider Internal Medicine
DX: C67.9 Malignant neoplasm of bladder, unspecified (principal)
CPT/HCPCS: 36415; 80053; 85025

== ENCOUNTER 2024-04-17 14:18 | Outpatient (AMB) | payer MEDICARE, OTHER, SELFPAY ==
[2024-04-17 14:19] VITALS: BP 140/86; PULSE 96; O2SAT 97; BMI 31.6
--- NOTE | 2024-04-17 14:19 | A.OFFPC_ITS ---
Vital Signs 04/17/24 14:19 Height 6 ft 2 in Weight 246 lb 0.1 oz BMI 31.6 BP 140/86 H Blood Pressure Location Lt brachial Position Sitting Pulse 96 Pulse Source Pulse Oximeter Pulse Oximetry (%) 97 Oxygen Delivery Method Room Air Intake Visit Reasons: boil in lt arm pit Optoelectronics Engineer Required: No Allergies No Known Allergies [No Known Allergies*] Allergy (Verified 04/17/24 14:20) Medication List - Last Reconciled 04/17/24 by Morris Rizzo MD atorvastatin 20 mg PO BEDTIME 90 days dexamethasone 2 mg PO BID ondansetron 8 mg PO Q8H PRN phenazopyridine (Pyridium) 200 mg PO BID PRN tamsulosin 0.4 mg PO DAILY 90 days Tobacco use date assessed: 11/20/23 Fall risk assessment: No Falls in past year Last assessed Fall Risk: 04/17/24 Dental Screening Dental Screen Date: 11/20/23 HPI boil in lt arm pit HPI Details abscess left axilla for a few weeks PFSH Medical History Obesity (BMI 30-39.9) Pure hypercholesterolemia Hyperlipemia Carpal tunnel syndrome Surgical History History of hand surgery History of ankle surgery History of cholecystectomy Family History Father Multiple sclerosis, primary progressive Mother No problems noted. 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 1. Little interest or pleasure in doing things: not at all 2. Feeling down, depressed, or hopeless: not at all 3. Trouble falling or staying asleep, or sleeping too much: not at all 4. Feeling tired or having little energy: not at all 5. Poor appetite or overeating: not at all 6. Feeling bad about yourself - or that you are a failure or have let yourself or your family down: not at all 7. Trouble concentrating on things, such as reading the newspaper or watching television: not at all 8. Moving or speaking so slowly that other people could have noticed. Or the opposite - being so fidgety or restless that you have been moving around a lot more than usual: not at all 9. Thoughts that you would be better off or of hurting yourself in some way: not at all Total score: 0 Depression Screening Interpretation: Negative Depression Screening Done: Yes 97277 - PHQ-9 Billing: Yes Source: Developed by Drs. Brady Becerra, Alba Morales, Remy Brothers and colleagues, with an educational holly from [employer]. Thrive Questionnaire Date Thrive assessed: 12/13/23 I am a: Patient What is your living situation today?: I have a steady place to live Within the past 12 months, did the food you bought not last and you didn't have the money to get more?: Never true Within the past 12 months, did you worry whether your food would run out before you got money to buy more?: Never true Do you have trouble paying for medicines?: No Do you have trouble getting transportation to medical appointments?: No Do you have trouble paying your heating and electricity bill?: No Do you have trouble taking care of your child, family member or friend?: No Do you have trouble with day-to-day activities such as bathing, preparing meals, shopping, managing finances, etc.?: No Are you currently unemployed and looking for a job?: No Are you interested in more education?: No Please select the resources that you would like help with: None THRIVE Score: 0 AUDIT C Alcohol Use Questionnaire (AUDIT-C) 1. How often do you have a drink containing alcohol?: Never 2. How many drinks containing alcohol do you have on a typical day when you are drinking?: 1 or 2 3. How often do you have six or more drinks on one occasion?: Never Total Score: 0 Score Reviewed/Action Taken: Yes RANDY-7 AMB Questionnaire RANDY-7 Date RANDY - 7 assessed: 11/20/23 Source: Developed by Drs. Brady Becerra, Alba Morales, Remy Brothers and colleagues, with an educational holly from [employer]. Review of Systems Const Denies chills, Denies headache(s) and Denies weight loss ENT Denies headache(s) Card Denies chest pain, Denies syncope, Denies irregular heart rhythm and Denies dyspnea Resp Denies chest congestion, Denies cough and Denies dyspnea GI Denies abdominal pain, Denies change in stool character, Denies nausea and Denies vomiting Musc Denies deformity and Denies joint swelling Neuro Denies syncope and Denies headache(s) Physical exam (Primary Care) Vital Signs: Last Vital Signs Pulse 96 04/17/24 14:19 BP 140/86 H 04/17/24 14:19 Pulse Ox 97 04/17/24 14:19 Oxygen Delivery Method Room Air 04/17/24 14:19 BMI result Body Mass Index 31.6 Tobacco/Smoking Status: Tobacco use Status Tobacco use date assessed 11/20/23 04/17/24 14:25 Patient Tobacco Use Status Former Tobacco user 04/17/24 14:25 Tobacco use type Cigarette 04/17/24 14:25 e-Cigarette/Vaping Use Never Used 04/17/24 14:25 PHQ-9: PHQ-9 Score PHQ-9: Total score 0 04/17/24 14:25 Depression Screening Interpretation: Negative Thrive Assessment: Date of Thrive Assessment Date Thrive assessed 12/13/23 04/17/24 14:25 Const General: cooperative, comfortable, no acute distress and alert Neck Neck: Yes no lymphadenopathy Thyroid: Thyroid normal Chest Other: 2 cm abscess left axilla Resp Effort & Inspection: normal respiratory effort Auscultation: clear to auscultation bilaterally Percussion: percussion normal Cardio Jugular venous distension: no JVD Palpation: normal PMI Rate: regular rate Rhythm: regular rhythm Heart sounds: S1 normal heart sound present and S2 normal heart sound present GI Inspection: Yes normal to inspection Palpation (GI): No hepatosplenomegaly present Skin General skin exam: no rashes or lesions noted Extrem General: Yes no clubbing, cyanosis or edema Assessment and Plan Assessment & Plan (1) Abscess of left axilla: Code(s): L02.412 - Cutaneous abscess of left axilla Plan: rx sent; refer Orders: Referrals General Surgery Referral L02.412 - Cutaneous abscess of left axilla Medications: New cephalexin 250 mg PO Q6H 20 caps 0RF Coding Level of Care Code Est Pt Level 3 (06537) Diagnoses Abscess of left axilla L02.412
== END 2024-04-17 14:52 | disposition home or self-care (01) ==
PROVIDERS: PCP Internal Medicine; Visit Provider Internal Medicine
DX: L02.412 Cutaneous abscess of left axilla (principal)
CPT/HCPCS: 99213

== ENCOUNTER → 2024-04-22 15:16 | Outpatient (BNVA) | payer MEDICARE, OTHER, SELFPAY | PROVIDERS: PCP Internal Medicine; Visit Provider Urology ==

== ENCOUNTER 2024-04-29 15:24 | Outpatient (REF) | payer MEDICARE, OTHER, SELFPAY ==
[2024-04-29 15:35] LABS: MANUAL DIFF FLAG NO
[2024-04-29 17:15] LABS: Basophils Percent Auto 0.7 % (0-2); Eosinophils Absolute Auto 0.1 X10*3/uL (0.0-0.4); Eosinophils Percent Auto 2.6 % (0-4); Hematocrit 23.1 % (42.0-52.0); Hemoglobin 7.8 g/dl (14.0-18.0); Imm Gran Abs Auto 0.02 X10*3/uL (0.00-0.03); Imm Gran Pct Auto 0.5 % (0.0-0.4); Lymphocytes Absolute Auto 1.1 X10*3/uL (1.2-4.9); Lymphocytes Percent Auto 26.1 % (20-40); Mean Corpuscular HGB Conc 33.8 g/dl (31.0-36.0); Mean Corpuscular Hemoglobin 31.8 pg (27.0-33.0); Mean Corpuscular Volume 94.3 fL (80.0-98.0); Mean Platelet Volume 10.2 fL (9.4-12.4); Monocytes Absolute Auto 0.8 X10*3/uL (0.1-1.2); Monocytes Percent Auto 18.5 % (2-11); Neutrophils Absolute Auto 2.2 x10*3/uL (2.0-8.3); Neutrophils Percent Auto 51.6 % (45-73); Platelet Count 186 X10*3/uL (160-400); Red Blood Count 2.45 X10*6/uL (4.60-5.80); Red Cell Distribution Width 19.9 % (11.0-16.0); White Blood Count 4.2 X10*3/uL (4.8-10.8)
[2024-04-29 18:01] LABS: Alanine Aminotransferase 10 U/L (0-40); Albumin Level 3.8 g/dL (3.5-5.0); Alkaline Phosphatase 114 U/L (39-117); Anion Gap 12 (12-20); Aspartate Amino Transferase 16 U/L (5-37); Bilirubin Total 0.3 mg/dL (0.0-1.0); Blood Urea Nitrogen 28 mg/dL (9-16); Calcium 8.9 mg/dL (8.4-10.2); Carbon Dioxide 22 mmol/L (22-29); Chloride 106 mmol/L (96-108); Estimated Glomerular Filt Rate 46; Glucose Random 83 mg/dL (60-115); Magnesium 1.9 mg/dL (1.6-2.6); Potassium 4.6 mmol/L (3.3-5.1); Sodium 135 mmol/L (135-145); Total Protein 6.5 g/dL (6.5-8.0)
== END 2024-04-29 15:25 | disposition home or self-care (01) ==
LOC: HO.LAB 15:24
PROVIDERS: PCP Internal Medicine; Visit Provider Internal Medicine
DX: C67.9 Malignant neoplasm of bladder, unspecified (principal)
CPT/HCPCS: 36415; 80053; 83735; 85025

== ENCOUNTER 2024-05-01 08:43 | Outpatient (AMB) | payer MEDICARE, OTHER, SELFPAY ==
--- NOTE | 2024-05-01 08:53 | MHC.OFFVIS ---
Vital Signs 05/01/24 09:01 Height 6 ft 2 in Weight 254 lb BMI 32.6 BP 138/83 Blood Pressure Location Rt brachial Position Sitting Pulse 89 Intake Visit Reasons: Abscess~ Lt axilla Intake Note: Patient referred by pcp Dr. Rizzo for abscess on Lt /axilla. Flaring for 2wks. Almost done w/cephalexin course. Patient c/o: Reports cyst on lt axilla present for 6m. Undergoing chemo txt for bladder CA. Customer Service Engineer Required: No Accompanied by: Self / Same As Patient Allergies No Known Allergies [No Known Allergies*] Allergy (Verified 05/01/24 08:58) HPI Comments Details: Patient presents for evaluation of a left axillary mass which he has had for least 2 months time. His increasing in size, and, symptomatic. He wished to have it evaluated. He has no such lesions elsewhere. Patient has a significant past medical history for which he is being treated with neoadjuvant therapy for bladder cancer. He is tentatively scheduled to have a cystectomy once the chemo therapy has concluded. Patient was concerned that this mass may be related to his bladder issues. Chart was reviewed and patient evaluated. [facility] Medical History Obesity (BMI 30-39.9) Pure hypercholesterolemia Hyperlipemia Carpal tunnel syndrome Surgical History History of hand surgery History of ankle surgery History of cholecystectomy Family History Father Multiple sclerosis, primary progressive Mother No problems noted. 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 There is some skin retraction over this. This is suspicious and may be a lymph node or perhaps other benign etiologies including a sebaceous cyst or less likely lipoma. Patient has no other cervical right axillary, periclavicular or groin adenopathy. Assessment & Plan Assessment & Plan (1) Mass of left axilla: Code(s): R22.32 - Localized swelling, mass and lump, left upper limb Category: Surgical Plan Patient wishes to have this excised that concur with this. Risks, benefits, alternatives of excision of left axillary mass reviewed with the patient included but not limited to bleeding, infection, recurrence, numbness, pain, scarring, seroma formation, wound dehiscence and the patient wishes to proceed. All questions answered. Arrangements made for this Coding Level of Care Code New Pt Level 5 (33879) Diagnoses Mass of left axilla R22.32
[2024-05-01 09:01] VITALS: BP 138/83; PULSE 89; BMI 32.6
== END 2024-05-01 09:12 | disposition home or self-care (01) ==
PROVIDERS: PCP Internal Medicine; Referring Provider Internal Medicine; Visit Provider Surgery
DX: R22.32 Localized swelling, mass and lump, left upper limb (principal)
CPT/HCPCS: 99204

== ENCOUNTER 2024-05-06 14:11 | Outpatient (REF) | payer MEDICARE, OTHER, SELFPAY ==
[2024-05-06 15:28] LABS: Basophils Percent Auto 1.2 % (0-2); Eosinophils Absolute Auto 0.1 X10*3/uL (0.0-0.4); Hematocrit 27.9 % (42.0-52.0); Hemoglobin 9.3 g/dl (14.0-18.0); Imm Gran Abs Auto 0.01 X10*3/uL (0.00-0.03); Imm Gran Pct Auto 0.4 % (0.0-0.4); Lymphocytes Absolute Auto 0.9 X10*3/uL (1.2-4.9); Lymphocytes Percent Auto 37.1 % (20-40); MANUAL DIFF FLAG SCAN; Mean Corpuscular HGB Conc 33.3 g/dl (31.0-36.0); Mean Corpuscular Hemoglobin 31.2 pg (27.0-33.0); Mean Corpuscular Volume 93.6 fL (80.0-98.0); Mean Platelet Volume 9.3 fL (9.4-12.4); Monocytes Absolute Auto 0.1 X10*3/uL (0.1-1.2); Monocytes Percent Auto 4.5 % (2-11); Neutrophils Absolute Auto 1.3 x10*3/uL (2.0-8.3); Neutrophils Percent Auto 54.8 % (45-73); Platelet Count 301 X10*3/uL (160-400); Red Blood Count 2.98 X10*6/uL (4.60-5.80); Red Cell Distribution Width 18.2 % (11.0-16.0); SCAN SMEAR FLAG 1
[2024-05-06 15:34] LABS: White Blood Count 2.5 X10*3/uL (4.8-10.8)
[2024-05-06 16:06] LABS: Alanine Aminotransferase 11 U/L (0-40); Albumin Level 3.8 g/dL (3.5-5.0); Alkaline Phosphatase 102 U/L (39-117); Anion Gap 15 (12-20); Aspartate Amino Transferase 16 U/L (5-37); Bilirubin Total 0.4 mg/dL (0.0-1.0); Blood Urea Nitrogen 40 mg/dL (9-16); Calcium 8.6 mg/dL (8.4-10.2); Carbon Dioxide 22 mmol/L (22-29); Chloride 105 mmol/L (96-108); Estimated Glomerular Filt Rate 41; Glucose Random 88 mg/dL (60-115); Magnesium 1.4 mg/dL (1.6-2.6); Potassium 4.9 mmol/L (3.3-5.1); Sodium 137 mmol/L (135-145); Total Protein 6.4 g/dL (6.5-8.0)
[2024-05-06 16:08] LABS: SLIDE REVIEW VERIFIED
== END 2024-05-06 14:12 | disposition home or self-care (01) ==
LOC: HO.LAB 14:11
PROVIDERS: PCP Internal Medicine; Visit Provider Internal Medicine
DX: C67.9 Malignant neoplasm of bladder, unspecified (principal); E29.1 Testicular hypofunction
CPT/HCPCS: 36415; 80053; 83735; 85025; 85027; 86850; 86900; 86901

== ENCOUNTER → 2024-05-09 15:16 | Outpatient (BNVA) | payer MEDICARE, OTHER, SELFPAY | PROVIDERS: PCP Internal Medicine; Visit Provider Urology ==

== ENCOUNTER 2024-05-13 15:12 | Outpatient (REF) | payer MEDICARE, OTHER, SELFPAY ==
[2024-05-13 16:04] LABS: Blood Urea Nitrogen 37 mg/dL (9-16); Estimated Glomerular Filt Rate 42
== END 2024-05-13 15:13 | disposition home or self-care (01) ==
LOC: HO.LAB 15:12
PROVIDERS: Nurse Practitioner Family; PCP Internal Medicine; Visit Provider Internal Medicine
DX: R31.9 Hematuria, unspecified (principal)
CPT/HCPCS: 36415; 82565; 84520

== ENCOUNTER 2024-05-15 07:39 | Outpatient (REF) | payer MEDICARE, OTHER, SELFPAY ==
--- NOTE | ~2024-05-15 | XR_ITS ---
EXAMINATION: XR CHEST CLINICAL INFORMATION: Malignant neoplasm of the bladder. COMPARISON: None available. TECHNIQUE: 2 views of the chest were obtained. FINDINGS: No significant abnormality is noted involving the heart, lungs, or soft tissues. No evidence of adenopathy. Uncoiled aorta, suggesting hypertension. Mild degenerative changes of the spine. No lytic or sclerotic bony lesion identified. Tip of right internal jugular chest port catheter projects over superior vena cava. XR/XR chest 2V IMPRESSION: Findings as above.
[2024-05-15 08:09] LABS: Hemoglobin 8.3 g/dl (14.0-18.0); Imm Gran Abs Auto 0.01 X10*3/uL (0.00-0.03); Imm Gran Pct Auto 0.5 % (0.0-0.4); MANUAL DIFF FLAG SCAN; SCAN SMEAR FLAG 1
[2024-05-15 08:12] LABS: Hematocrit 24.2 % (42.0-52.0); Lymphocytes Absolute Auto 0.8 X10*3/uL (1.2-4.9); Lymphocytes Percent Auto 39.8 % (20-40); Mean Corpuscular HGB Conc 34.3 g/dl (31.0-36.0); Mean Corpuscular Hemoglobin 31.8 pg (27.0-33.0); Mean Corpuscular Volume 92.7 fL (80.0-98.0); Monocytes Absolute Auto 0.1 X10*3/uL (0.1-1.2); Monocytes Percent Auto 5.3 % (2-11); Neutrophils Absolute Auto 1.1 x10*3/uL (2.0-8.3); Neutrophils Percent Auto 52.4 % (45-73); Red Blood Count 2.61 X10*6/uL (4.60-5.80)
[2024-05-15 08:16] LABS: White Blood Count 2.1 X10*3/uL (4.8-10.8)
[2024-05-15 08:23] LABS: Alanine Aminotransferase 9 U/L (0-40); Albumin Level 3.7 g/dL (3.5-5.0); Alkaline Phosphatase 119 U/L (39-117); Anion Gap 12 (12-20); Aspartate Amino Transferase 15 U/L (5-37); Bilirubin Total 0.4 mg/dL (0.0-1.0); Blood Urea Nitrogen 30 mg/dL (9-16); Carbon Dioxide 21 mmol/L (22-29); Chloride 111 mmol/L (96-108); Estimated Glomerular Filt Rate 47; Glucose Random 96 mg/dL (60-115); Magnesium 1.7 mg/dL (1.6-2.6); Potassium 4.8 mmol/L (3.3-5.1); Sodium 139 mmol/L (135-145); Total Protein 6.3 g/dL (6.5-8.0)
[2024-05-15 08:33] LABS: Mean Platelet Volume 9.6 fL (9.4-12.4); Platelet Count 27 X10*3/uL (160-400)
[2024-05-15 08:34] LABS: SLIDE REVIEW VERIFIED
== END 2024-05-15 07:40 | disposition home or self-care (01) ==
LOC: HO.LAB 07:39
PROVIDERS: Absent Provider Urology; PCP Internal Medicine; Visit Provider Internal Medicine
DX: C67.9 Malignant neoplasm of bladder, unspecified (principal)
CPT/HCPCS: 36415; 71046; 80053; 83735; 85025

== ENCOUNTER 2024-05-23 05:41 | Day surgery (SDC) | payer MEDICARE, OTHER, SELFPAY ==
--- NOTE | ~2024-05-23 | IR_ITS ---
FLUOROSCOPIC RIGHT NEPHROSTOMY CHANGE History: Patient has a right nephrostomy tube due to right ureteral obstruction due to bladder cancer. Patient presents for a 3 month maintenance change. Procedure: Patient was informed and consented to the procedure. The patient's back was prepped and draped in routine sterile fashion. 1% lidocaine was used as a anesthetic around the insertion site. The catheter was cut, and an Amplatz wire was advanced through the tube and into the renal pelvis. The catheter was removed over the wire. A new 8.5 Albanian locking pigtail catheter was advanced over the wire. The wire was removed. 5 mL of contrast was injected to assure proper positioning. The pigtail catheter was noted to be within the renal pelvis. A 3-0 Ethilon suture was used to secure the catheter to the skin. A sterile dressing was applied. The patient tolerated the procedure well with no immediate complications. Total fluoroscopy time 2.8 minutes. IR/IR nephrostomy tube change Impression: Right nephrostomy tube exchange This procedure was performed by Yoseph Bradshaw PA-C, and directly supervised by Dr. Mckoy
[2024-05-23 08:15] VITALS: BMI 31.6
[2024-05-23 09:20] VITALS: BP 146/93; PULSE 77; RESP 16; TEMP 36.6; O2SAT 99
[2024-05-23 09:35] VITALS: BP 154/96; PULSE 78; RESP 16; O2SAT 99
[2024-05-23 09:50] VITALS: BP 140/93; PULSE 75; RESP 16; O2SAT 97
[2024-05-23 10:05] VITALS: BP 136/90; PULSE 77; RESP 16; O2SAT 99
[2024-05-23 10:20] VITALS: BP 149/86; PULSE 78; RESP 16; TEMP 36.4; O2SAT 98
== END 2024-05-23 10:46 | disposition home or self-care (01) ==
PROVIDERS: Radiology Vascular & Interventional Radiology; PCP Internal Medicine; Visit Provider Internal Medicine
DX: C67.8 Malignant neoplasm of overlapping sites of bladder (principal); D64.81 Anemia due to antineoplastic chemotherapy; Z95.828 Presence of other vascular implants and grafts; L02.412 Cutaneous abscess of left axilla; E78.00 Pure hypercholesterolemia, unspecified; E66.9 Obesity, unspecified; Z68.32 Body mass index [BMI] 32.0-32.9, adult; Z79.899 Other long term (current) drug therapy; Z98.890 Other specified postprocedural states; Z87.891 Personal history of nicotine dependence
CPT/HCPCS: 50435; 99202; C1729; C1769; C1887; C1892; C1894; J1642; J2250; J2310; J3010; Q9967

== ENCOUNTER → 2024-05-23 08:34 | Outpatient (BNV) | payer MEDICARE, OTHER, SELFPAY | PROVIDERS: PCP Internal Medicine; Visit Provider Physician Assistant Surgical | DX: C67.8 Malignant neoplasm of overlapping sites of bladder (principal) | CPT/HCPCS: 50435 ==

== ENCOUNTER 2024-05-27 12:29 | Outpatient (REF) | payer MEDICARE, OTHER, SELFPAY ==
--- NOTE | ~2024-05-27 | US_ITS ---
EXAMINATION: ULTRASOUND LEFT BUTTOCK CLINICAL INFORMATION: Right-sided gluteal lesion seen on PET/CT COMPARISON: CT urogram 12/06/2023 TECHNIQUE: High-frequency linear ultrasound transducer was used to examine the area of clinical concern. FINDINGS: There is a solid hypoechoic mass seen which is vascular 3.5 cm below the skin surface measuring 1.6 x 1.3 x 1.2 cm. No mass can be seen in this region on the prior CT urogram. US/US extremity nonvascular ivan IMPRESSION: Solid vascular mass in the left buttock. Biopsy is recommended.
== END 2024-05-27 12:30 | disposition home or self-care (01) ==
LOC: HO.US 12:29
PROVIDERS: PCP Internal Medicine; Visit Provider Internal Medicine
DX: C67.9 Malignant neoplasm of bladder, unspecified (principal)
CPT/HCPCS: 76882

== ENCOUNTER → 2024-05-28 14:34 | Outpatient (BNVA) | payer MEDICARE, OTHER, SELFPAY | PROVIDERS: PCP Internal Medicine; Visit Provider Urology ==

== ENCOUNTER 2024-05-29 12:55 | Outpatient (REF) | payer MEDICARE, OTHER, SELFPAY ==
[2024-05-29] MEDS: Lidocaine HCl 1 % MPF 5 ML VIAL SUBCUT (14:09)
== END 2024-05-29 12:56 | disposition home or self-care (01) ==
LOC: HO.US 12:55
PROVIDERS: PCP Internal Medicine; Visit Provider Internal Medicine
DX: C67.9 Malignant neoplasm of bladder, unspecified (principal)
CPT/HCPCS: 11104; 88305; 88341; 88342

== ENCOUNTER 2024-05-31 06:25 | Day surgery (SDC) | payer MEDICARE, OTHER, SELFPAY ==
[2024-05-28 13:37] VITALS: BP 157/87; PULSE 80; RESP 16; O2SAT 100; BMI 31.5
--- NOTE | 2024-05-28 14:00 | HO.ANESPROP2 ---
Documented by User: Valerie Jensen NP 05/28/24 14:12 HPI - Anesthesia Eval Consult details Narrative: 63yo M for Left Wide Local Exicison of Axillary Mass, 05/31/24 No recent illness No CP/SOB with ADLs Bladder CA: [place] [facility] [place]. Current plan for cystectomy at [facility] 06/07/24. Chemo last 05/07/24. Right chest port. 2 units PRBC 05/01/24. Low H&H 05/27/24, will repeat DOS. EKG and labs from [facility] pending receipt [facility] Active Problems Active Problems: All Active Problems Mass of left axilla (Acute) Invasive carcinoma of urinary bladder (Acute) Bladder cancer (Acute) Hydronephrosis (Acute) Bladder mass (Acute) Hematuria (Acute) Osteoarthritis of left ankle (Acute) Retained orthopedic hardware (Acute) Cubital tunnel syndrome, bilateral (Acute) Tinea pedis (Acute) Neuropathy (Acute) Fracture of distal end of left fibula (Acute) Elevated blood pressure reading (Acute) Annual physical exam (Acute) Elevated serum creatinine (Acute) Fracture of left fibula (Acute) Bilateral carpal tunnel syndrome (Acute) Stiffness of left wrist joint (Acute) Left wrist pain (Acute) TFCC (triangular fibrocartilage complex) injury (Acute) Obesity (BMI 30-39.9) (Acute) Pure hypercholesterolemia (Acute) Carpal tunnel syndrome (Acute) Past Medical History Medical History (Updated 05/28/24 @ 14:20 by Cathi Cast RN) Port-A-Cath in place (02/16/24) History of blood transfusion Bladder cancer Obesity (BMI 30-39.9) Pure hypercholesterolemia Hyperlipemia Carpal tunnel syndrome Family History Family History Father Multiple sclerosis, primary progressive Mother No problems noted. Sister In good health Son In good health Daughter In good health Family history of problems with anesthesia: No Surgical History Surgical History (Updated 05/28/24 @ 13:32 by Cathi Cast RN) Hx of colonoscopy Hx of cystoscopy History of surgery History of hand surgery History of ankle surgery History of cholecystectomy History of Problems with Anesthesia: No Social History Social History (Updated 05/28/24 @ 13:53 by Cathi Cast, RN) Household Members: None Housing: House Are you a primary primary health care nurse to a significant other at home: No Do you presently have visiting nurse or other home services: No Alcohol intake: current Alcohol intake frequency: holidays/special occasions only Comment: medicated with tyelnol Patient Tobacco Use Status: Former Tobacco user Tobacco use type: Cigarette Smoked in Last 30 Days: No e-Cigarette/Vaping Use: Never Used Second Hand Smoke Exposure: No Use of substances other than those prescribed or required for medical reasons: No Have you been hit, kicked, punched, or otherwise hurt by someone within the past year? 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 occupational exposures/hazards: No Cognitive needs: No Hearing needs: No Vision needs: Yes Meds Allergies Allergy/AdvReac Type Severity Reaction Status Date / Time No Known Allergies Allergy Verified 05/31/24 08:07 [No Known Allergies*] Exam Height,Weight and Vital Signs: Height 6 ft 2 in Weight 111.13 kg Last Vital Signs Pulse 80 05/28/24 13:37 Resp 16 05/28/24 13:37 BP 157/87 H 05/28/24 13:37 Pulse Ox 100 05/28/24 13:37 O2 Del Method Room Air 05/28/24 13:37 Pertinent Lab Results Pertinent Lab Results: Laboratory Tests 05/27/24 10:58 WBC 3.0 L Hgb 8.4 L Hct 25.4 L Plt Count 357 D Sodium 135 Potassium 5.0 Chloride 107 Carbon Dioxide 23 BUN 23 H Creatinine 1.64 H Airway Mallampati Class: III TM Dist: >3cm Neck ROM: Full Loose/Missing/Broken Teeth: No (1xcrown) Heart: RRR Lungs: CTAB Assessment and Plan Assessment Anesthesia Assessment: Anesthesia Plan Discussed and PAT Visit Final Anesthetic Review Family History of Problems with Anesthesia: No History of Problems with Anesthesia: No Documented by User: Leticia Sorto MD 05/31/24 09:02 [facility] Past Medical History Medical History (Updated 05/28/24 @ 14:20 by Cathi Cast, RN) Port-A-Cath in place (02/16/24) History of blood transfusion Bladder cancer Obesity (BMI 30-39.9) Pure hypercholesterolemia Hyperlipemia Carpal tunnel syndrome Family History Family History Father Multiple sclerosis, primary progressive Mother No problems noted. Sister In good health Son In good health Daughter In good health Surgical History Surgical History (Updated 05/28/24 @ 13:32 by Cathi Cast, RN) Hx of colonoscopy Hx of cystoscopy History of surgery History of hand surgery History of ankle surgery History of cholecystectomy Social History Social History (Updated 05/28/24 @ 13:53 by Cathi Cast, SILVANO) Household Members: None Housing: House Are you a primary primary health care nurse to a significant other at home: No Do you presently have visiting nurse or other home services: No Alcohol intake: current Alcohol intake frequency: holidays/special occasions only Comment: medicated with tyelnol Patient Tobacco Use Status: Former Tobacco user Tobacco use type: Cigarette Smoked in Last 30 Days: No e-Cigarette/Vaping Use: Never Used Second Hand Smoke Exposure: No Use of substances other than those prescribed or required for medical reasons: No Have you been hit, kicked, punched, or otherwise hurt by someone within the past year? 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 occupational exposures/hazards: No Cognitive needs: No Hearing needs: No Vision needs: Yes Meds Allergies Allergy/AdvReac Type Severity Reaction Status Date / Time No Known Allergies Allergy Verified 05/31/24 08:07 [No Known Allergies*] Assessment and Plan Assessment Anesthesia Assessment: Chart Reviewed Final Anesthetic Review NPO: Yes ASA Class: III Final Preanesthetic Review: No Changes in Pt Med Stat, Meds/Allgs Chart Reviewed, Consent Obtained/Reviewed and Anes Risks/Benef Reviewed Patient Risk: Intermediate Procedure Risk: Low Anesthetic Plan Anesthetic Plan: GA Disposition: Standard PACU
--- NOTE | 2024-05-30 10:30 | MHC.SHP ---
Pre-Procedural Eval Section A - 24 Hr Update-Section A only Date of Service: 05/30/24 The patient is an INPATIENT: No Changes since office visit: No Cold of Flu in the past 2 weeks, No New Medical Problems, No Changes in Medication and No Patient answered all questions Section B - Complete if H&P > 30 days Chief Complaint: Localized swelling, mass and lump, left upper limb Allergies: Allergies Allergy/AdvReac Type Severity Reaction Status Date / Time No Known Allergies Allergy Verified 05/01/24 08:58 [No Known Allergies*] Review of Systems Sugical H&P ROS: Negative: Constitution, Cardiovascular, Respiratory, Neurological, Psychiatric, Hem-Onc, Allergic/Immunologic, Gastrointestinal, Genitourinary, Musculoskeletal, Integumentary, Endocrine and Eyes/Ears/Nose/Throat Exam Surgical H&P Exam: Normal: HEENT, Normal: Heart, Normal: Lungs, Normal: Extremities, Normal: Abdomen, Normal: Skin and Normal: Neurological Plan I have reviewed the history and physical and performed a pertinent physical examination on my patient. No changes have occurred unless specified. Time Spent With Patient Time: Total time managing care of this patient today ____ minutes.
[2024-05-31] VITALS (8 sets, daily range): BP systolic 113–175; BP diastolic 67–97; PULSE 66–80; RESP 16; TEMP 36.1–36.8; O2SAT 98–100; BMI 31.8
[2024-05-31 08:36] LABS: Hematocrit 27.7 % (42.0-52.0); Hemoglobin 9.3 g/dl (14.0-18.0)
[2024-05-31] MEDS: Lactated Ringers 1,000 ML 100 ML IVCONT (10:09)
--- NOTE | 2024-05-31 11:00 | P.OP_ITS ---
Operative Note Operative Note Date of Service: 05/31/24 Narrative: Preoperative diagnosis: [] Left axillary soft tissue mass/growth Postop diagnosis: [] The same Procedure [] wide local excision left axillary mass Surgeon: [] Og Stitch Bonder Machine Operator Helper: [] Type of Anesthesia: [] LMA Indication for surgery: [] Final specimen size 8 x 5 cm and tagged for permanent evaluation by pathology. Findings: [] Patient brought to the operating room, placed on operative table supine position, after an adequate level of LMA anesthesia was induced, the patient's arm and axilla were appropriately positioned and underwent prepping and draping in usual fashion. A longitudinal by elliptical incision to grossly clear margins of this soft tissue mass was performed and carried down through skin, subcutaneous tissue, and undermined using Bovie. Specimen was tagged and sent to pathology. Specimen size was noted above. Medial and lateral skin flaps were developed using Bovie and wound was then irrigated, secured hemostasis, and closed using interrupted inverted dermal 3-0 Vicryl sutures followed by Steri-Strips and sterile dressings. Wound was infiltrated at the beginning at the end with 0.5% Marcaine/1% lidocaine. Sponge, needle, and instrument counts reported correct. Patient tolerated the procedure well and emerged from anesthesia stable condition. EBL minimal
== END 2024-05-31 13:17 | disposition home or self-care (01) ==
PROVIDERS: Nurse Practitioner; PCP Internal Medicine; Visit Provider Surgery
PROC: (CPT 24071; principal; 2024-05-31 09:50)
DX: C77.3 Secondary and unspecified malignant neoplasm of axilla and upper limb lymph nodes (principal); C67.8 Malignant neoplasm of overlapping sites of bladder; Z95.828 Presence of other vascular implants and grafts; N13.30 Unspecified hydronephrosis; Z93.6 Other artificial openings of urinary tract status; E78.00 Pure hypercholesterolemia, unspecified; E66.9 Obesity, unspecified; Z68.32 Body mass index [BMI] 32.0-32.9, adult; Z98.890 Other specified postprocedural states; Z87.891 Personal history of nicotine dependence
CPT/HCPCS: 24071; 36415; 85014; 85018; 88305; 88307; 88341; 88342; J0690; J1100; J2250; J2405; J2704; J2795; J3010

== ENCOUNTER → 2024-05-31 06:25 | Outpatient (BNV) | payer MEDICARE, OTHER, SELFPAY | PROVIDERS: PCP Internal Medicine; Visit Provider Surgery | DX: C79.89 Secondary malignant neoplasm of other specified sites (principal) | CPT/HCPCS: 21552 ==

== ENCOUNTER 2024-06-10 09:18 | Outpatient (REF) | payer MEDICARE, OTHER, SELFPAY ==
[2024-06-10 09:30] LABS: MANUAL DIFF FLAG NO
[2024-06-10 10:08] LABS: Basophils Absolute Auto 0.1 X10*3/uL (0.0-0.2); Eosinophils Absolute Auto 0.4 X10*3/uL (0.0-0.4); Hematocrit 29.2 % (42.0-52.0); Hemoglobin 9.7 g/dl (14.0-18.0); Imm Gran Abs Auto 0.06 X10*3/uL (0.00-0.03); Lymphocytes Percent Auto 16.5 % (20-40); Mean Corpuscular HGB Conc 33.2 g/dl (31.0-36.0); Mean Corpuscular Volume 99.3 fL (80.0-98.0); Mean Platelet Volume 10.3 fL (9.4-12.4); Monocytes Absolute Auto 0.8 X10*3/uL (0.1-1.2); Monocytes Percent Auto 12.2 % (2-11); Neutrophils Percent Auto 63.3 % (45-73); Platelet Count 214 X10*3/uL (160-400); Red Blood Count 2.94 X10*6/uL (4.60-5.80); Red Cell Distribution Width 17.2 % (11.0-16.0); White Blood Count 6.3 X10*3/uL (4.8-10.8)
[2024-06-10 10:51] LABS: Alanine Aminotransferase 7 U/L (0-40); Albumin Level 3.7 g/dL (3.5-5.0); Alkaline Phosphatase 120 U/L (39-117); Anion Gap 11 (12-20); Aspartate Amino Transferase 15 U/L (5-37); Bilirubin Total 0.2 mg/dL (0.0-1.0); Blood Urea Nitrogen 36 mg/dL (9-16); Calcium 9.2 mg/dL (8.4-10.2); Carbon Dioxide 24 mmol/L (22-29); Chloride 106 mmol/L (96-108); Estimated Glomerular Filt Rate 42; Glucose Random 108 mg/dL (60-115); Potassium 4.8 mmol/L (3.3-5.1); Sodium 136 mmol/L (135-145); Total Protein 6.7 g/dL (6.5-8.0)
[2024-06-10 11:08] LABS: Thyroid Stimulating Hormone 1.31 uIU/mL (0.32-4.0)
[2024-06-10 11:51] LABS: Lactate Dehydrogenase 229 U/L (118-273)
[2024-06-10 12:07] LABS: Carcinoembryonic Antigen < 1.73 ng/mL
== END 2024-06-10 09:19 | disposition home or self-care (01) ==
LOC: HO.LAB 09:18
PROVIDERS: PCP Internal Medicine; Visit Provider Internal Medicine
DX: C67.9 Malignant neoplasm of bladder, unspecified (principal)
CPT/HCPCS: 36415; 80053; 82378; 83615; 84443; 85025; 99212

== ENCOUNTER 2024-06-10 09:32 | Outpatient (AMB) | payer MEDICARE, OTHER, SELFPAY ==
--- NOTE | 2024-06-10 09:35 | A.OFFVIS_ITS ---
Intake Visit Reasons: S/P WLE Lt. axillary mass Intake Note: Patient here s/p WLE Lt axilla. Reports scar healing well. Patient c/o: steri strips fell off. No longer taking rx pain meds. Sueding Machine Tender Required: No Accompanied by: Self / Same As Patient Allergies No Known Allergies [No Known Allergies*] Allergy (Verified 06/10/24 09:40) HPI Comments Details: Patient presents for follow-up. He has minimal incisional discomfort. He is otherwise doing relatively well. Pathology was reviewed. Consistent with metastatic mass. [facility] Medical History (Updated 06/04/24 @ 15:03 by Antonia Moon MD) Port-A-Cath in place (02/16/24) History of blood transfusion Bladder cancer Obesity (BMI 30-39.9) Pure hypercholesterolemia Hyperlipemia Carpal tunnel syndrome Surgical History (Updated 06/10/24 @ 09:43 by Palmer Foley MD) Hx of colonoscopy Hx of cystoscopy History of surgery History of hand surgery History of ankle surgery History of cholecystectomy Family History Father Multiple sclerosis, primary progressive Mother No problems noted. 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 He is being followed up with Urology a [facility] and Oncology here. All questions answered Coding Level of Care Code Global (65966) Diagnoses Malignant neoplasm metastatic from bladder C67.9
== END 2024-06-10 09:41 | disposition home or self-care (01) ==
PROVIDERS: PCP Internal Medicine; Visit Provider Surgery
DX: Z09 Encounter for follow-up examination after completed treatment for conditions other than malignant neoplasm (principal)
CPT/HCPCS: 99024

== ENCOUNTER 2024-06-15 08:23 | Outpatient (REF) | payer MEDICARE, OTHER, SELFPAY ==
[2024-06-15 08:42] LABS: MANUAL DIFF FLAG NO
[2024-06-15 09:02] LABS: Basophils Absolute Auto 0.1 X10*3/uL (0.0-0.2); Basophils Percent Auto 0.8 % (0-2); Eosinophils Absolute Auto 0.7 X10*3/uL (0.0-0.4); Eosinophils Percent Auto 9.3 % (0-4); Hemoglobin 10.1 g/dl (14.0-18.0); Imm Gran Abs Auto 0.08 X10*3/uL (0.00-0.03); Imm Gran Pct Auto 1.1 % (0.0-0.4); Lymphocytes Absolute Auto 0.9 X10*3/uL (1.2-4.9); Lymphocytes Percent Auto 13.1 % (20-40); Mean Corpuscular HGB Conc 33.7 g/dl (31.0-36.0); Mean Corpuscular Hemoglobin 32.9 pg (27.0-33.0); Mean Corpuscular Volume 97.7 fL (80.0-98.0); Mean Platelet Volume 9.9 fL (9.4-12.4); Monocytes Absolute Auto 0.8 X10*3/uL (0.1-1.2); Monocytes Percent Auto 11.4 % (2-11); Neutrophils Absolute Auto 4.6 x10*3/uL (2.0-8.3); Neutrophils Percent Auto 64.3 % (45-73); Platelet Count 168 X10*3/uL (160-400); Red Blood Count 3.07 X10*6/uL (4.60-5.80); Red Cell Distribution Width 16.4 % (11.0-16.0); White Blood Count 7.2 X10*3/uL (4.8-10.8)
== END 2024-06-15 08:24 | disposition home or self-care (01) ==
LOC: HO.LAB 08:23
PROVIDERS: PCP Internal Medicine; Visit Provider Internal Medicine
DX: C67.9 Malignant neoplasm of bladder, unspecified (principal)
CPT/HCPCS: 36415; 85025

== ENCOUNTER 2024-06-28 15:16 | Outpatient (REF) | payer MEDICARE, OTHER, SELFPAY ==
[2024-06-28 15:24] LABS: MANUAL DIFF FLAG NO
[2024-06-28 15:54] LABS: Basophils Percent Auto 0.5 % (0-2); Eosinophils Absolute Auto 0.2 X10*3/uL (0.0-0.4); Eosinophils Percent Auto 2.8 % (0-4); Hematocrit 30.4 % (42.0-52.0); Imm Gran Pct Auto 1.2 % (0.0-0.4); Lymphocytes Absolute Auto 1.3 X10*3/uL (1.2-4.9); Lymphocytes Percent Auto 15.3 % (20-40); Mean Corpuscular HGB Conc 32.9 g/dl (31.0-36.0); Mean Corpuscular Hemoglobin 32.1 pg (27.0-33.0); Mean Corpuscular Volume 97.4 fL (80.0-98.0); Mean Platelet Volume 9.5 fL (9.4-12.4); Monocytes Absolute Auto 0.8 X10*3/uL (0.1-1.2); Monocytes Percent Auto 9.9 % (2-11); Neutrophils Absolute Auto 5.7 x10*3/uL (2.0-8.3); Neutrophils Percent Auto 70.3 % (45-73); Platelet Count 264 X10*3/uL (160-400); Red Blood Count 3.12 X10*6/uL (4.60-5.80); Red Cell Distribution Width 14.6 % (11.0-16.0); White Blood Count 8.2 X10*3/uL (4.8-10.8)
[2024-06-28 16:49] LABS: Alanine Aminotransferase 10 U/L (0-40); Albumin Level 3.7 g/dL (3.5-5.0); Alkaline Phosphatase 113 U/L (39-117); Anion Gap 12 (12-20); Aspartate Amino Transferase 14 U/L (5-37); Bilirubin Total 0.3 mg/dL (0.0-1.0); Blood Urea Nitrogen 29 mg/dL (9-16); Calcium 9.4 mg/dL (8.4-10.2); Carbon Dioxide 25 mmol/L (22-29); Chloride 105 mmol/L (96-108); Estimated Glomerular Filt Rate 38; Glucose Random 91 mg/dL (60-115); Potassium 4.7 mmol/L (3.3-5.1); Sodium 137 mmol/L (135-145); Total Protein 7.5 g/dL (6.5-8.0)
[2024-06-28 16:55] LABS: Thyroid Stimulating Hormone 0.21 uIU/mL (0.32-4.0)
== END 2024-06-28 15:17 | disposition home or self-care (01) ==
LOC: HO.LAB 15:16
PROVIDERS: PCP Internal Medicine; Visit Provider Internal Medicine
DX: C67.9 Malignant neoplasm of bladder, unspecified (principal)
CPT/HCPCS: 36415; 80053; 84443; 85025

== ENCOUNTER 2024-07-05 13:10 | Outpatient (REF) | payer MEDICARE, OTHER, SELFPAY ==
[2024-07-05 13:26] LABS: MANUAL DIFF FLAG NO
[2024-07-05 13:53] LABS: Basophils Absolute Auto 0.1 X10*3/uL (0.0-0.2); Basophils Percent Auto 0.6 % (0-2); Eosinophils Absolute Auto 0.1 X10*3/uL (0.0-0.4); Eosinophils Percent Auto 1.4 % (0-4); Hematocrit 29.4 % (42.0-52.0); Hemoglobin 9.9 g/dl (14.0-18.0); Imm Gran Abs Auto 0.07 X10*3/uL (0.00-0.03); Imm Gran Pct Auto 0.8 % (0.0-0.4); Lymphocytes Absolute Auto 1.2 X10*3/uL (1.2-4.9); Lymphocytes Percent Auto 14.2 % (20-40); Mean Corpuscular HGB Conc 33.7 g/dl (31.0-36.0); Mean Corpuscular Hemoglobin 32.2 pg (27.0-33.0); Mean Corpuscular Volume 95.8 fL (80.0-98.0); Mean Platelet Volume 9.7 fL (9.4-12.4); Monocytes Absolute Auto 1.1 X10*3/uL (0.1-1.2); Monocytes Percent Auto 12.8 % (2-11); Neutrophils Absolute Auto 6.1 x10*3/uL (2.0-8.3); Neutrophils Percent Auto 70.2 % (45-73); Platelet Count 235 X10*3/uL (160-400); Red Blood Count 3.07 X10*6/uL (4.60-5.80); Red Cell Distribution Width 14.5 % (11.0-16.0); White Blood Count 8.7 X10*3/uL (4.8-10.8)
[2024-07-05 14:40] LABS: Alanine Aminotransferase 14 U/L (0-40); Albumin Level 3.6 g/dL (3.5-5.0); Alkaline Phosphatase 109 U/L (39-117); Anion Gap 13 (12-20); Aspartate Amino Transferase 18 U/L (5-37); Bilirubin Total 0.4 mg/dL (0.0-1.0); Blood Urea Nitrogen 28 mg/dL (9-16); Calcium 9.4 mg/dL (8.4-10.2); Carbon Dioxide 25 mmol/L (22-29); Chloride 106 mmol/L (96-108); Estimated Glomerular Filt Rate 34; Glucose Random 92 mg/dL (60-115); Potassium 5.1 mmol/L (3.3-5.1); Sodium 139 mmol/L (135-145); Total Protein 7.4 g/dL (6.5-8.0)
[2024-07-05 14:54] LABS: Thyroid Stimulating Hormone 0.04 uIU/mL (0.32-4.0)
== END 2024-07-05 13:11 | disposition home or self-care (01) ==
LOC: HO.LAB 13:10
PROVIDERS: PCP Internal Medicine; Visit Provider Internal Medicine
DX: C67.9 Malignant neoplasm of bladder, unspecified (principal)
CPT/HCPCS: 36415; 80053; 84443; 85025

== ENCOUNTER 2024-07-19 13:05 | Outpatient (REF) | payer MEDICARE, OTHER, SELFPAY ==
[2024-07-19 13:24] LABS: MANUAL DIFF FLAG NO
[2024-07-19 13:28] LABS: Basophils Percent Auto 0.4 % (0-2); Eosinophils Absolute Auto 0.1 X10*3/uL (0.0-0.4); Eosinophils Percent Auto 1.4 % (0-4); Hematocrit 27.4 % (42.0-52.0); Imm Gran Abs Auto 0.06 X10*3/uL (0.00-0.03); Imm Gran Pct Auto 0.8 % (0.0-0.4); Lymphocytes Absolute Auto 1.2 X10*3/uL (1.2-4.9); Lymphocytes Percent Auto 14.8 % (20-40); Mean Corpuscular HGB Conc 32.8 g/dl (31.0-36.0); Mean Corpuscular Hemoglobin 31.3 pg (27.0-33.0); Mean Corpuscular Volume 95.1 fL (80.0-98.0); Mean Platelet Volume 8.7 fL (9.4-12.4); Monocytes Absolute Auto 0.7 X10*3/uL (0.1-1.2); Monocytes Percent Auto 9.4 % (2-11); Neutrophils Absolute Auto 5.7 x10*3/uL (2.0-8.3); Neutrophils Percent Auto 73.2 % (45-73); Platelet Count 237 X10*3/uL (160-400); Red Blood Count 2.88 X10*6/uL (4.60-5.80); Red Cell Distribution Width 14.7 % (11.0-16.0); White Blood Count 7.8 X10*3/uL (4.8-10.8)
[2024-07-19 13:58] LABS: Alanine Aminotransferase 13 U/L (0-40); Albumin Level 3.5 g/dL (3.5-5.0); Alkaline Phosphatase 118 U/L (39-117); Anion Gap 13 (12-20); Aspartate Amino Transferase 19 U/L (5-37); Bilirubin Total 0.3 mg/dL (0.0-1.0); Blood Urea Nitrogen 20 mg/dL (9-16); Calcium 9.3 mg/dL (8.4-10.2); Carbon Dioxide 25 mmol/L (22-29); Chloride 104 mmol/L (96-108); Estimated Glomerular Filt Rate 31; Glucose Random 99 mg/dL (60-115); Potassium 4.8 mmol/L (3.3-5.1); Sodium 137 mmol/L (135-145); Total Protein 7.2 g/dL (6.5-8.0)
[2024-07-19 14:14] LABS: Thyroid Stimulating Hormone 0.02 uIU/mL (0.32-4.0)
== END 2024-07-19 13:06 | disposition home or self-care (01) ==
LOC: HO.LAB 13:05
PROVIDERS: PCP Internal Medicine; Visit Provider Internal Medicine
DX: C67.9 Malignant neoplasm of bladder, unspecified (principal)
CPT/HCPCS: 36415; 80053; 84443; 85025

== ENCOUNTER 2024-07-26 14:13 | Outpatient (REF) | payer MEDICARE, OTHER, SELFPAY ==
[2024-07-26 14:43] LABS: MANUAL DIFF FLAG NO
[2024-07-26 14:45] LABS: Basophils Percent Auto 0.3 % (0-2); Eosinophils Absolute Auto 0.1 X10*3/uL (0.0-0.4); Hematocrit 27.6 % (42.0-52.0); Hemoglobin 9.2 g/dl (14.0-18.0); Imm Gran Abs Auto 0.15 X10*3/uL (0.00-0.03); Imm Gran Pct Auto 1.7 % (0.0-0.4); Lymphocytes Absolute Auto 1.5 X10*3/uL (1.2-4.9); Lymphocytes Percent Auto 17.5 % (20-40); Mean Corpuscular HGB Conc 33.3 g/dl (31.0-36.0); Mean Corpuscular Hemoglobin 31.2 pg (27.0-33.0); Mean Corpuscular Volume 93.6 fL (80.0-98.0); Mean Platelet Volume 8.8 fL (9.4-12.4); Monocytes Absolute Auto 0.9 X10*3/uL (0.1-1.2); Monocytes Percent Auto 10.7 % (2-11); Neutrophils Absolute Auto 5.9 x10*3/uL (2.0-8.3); Neutrophils Percent Auto 68.8 % (45-73); Platelet Count 225 X10*3/uL (160-400); Red Blood Count 2.95 X10*6/uL (4.60-5.80); Red Cell Distribution Width 15.1 % (11.0-16.0); White Blood Count 8.6 X10*3/uL (4.8-10.8)
[2024-07-26 15:06] LABS: Alanine Aminotransferase 10 U/L (0-40); Albumin Level 3.4 g/dL (3.5-5.0); Alkaline Phosphatase 114 U/L (39-117); Anion Gap 11 (12-20); Aspartate Amino Transferase 17 U/L (5-37); Bilirubin Total 0.3 mg/dL (0.0-1.0); Blood Urea Nitrogen 30 mg/dL (9-16); Calcium 9.5 mg/dL (8.4-10.2); Carbon Dioxide 26 mmol/L (22-29); Chloride 104 mmol/L (96-108); Estimated Glomerular Filt Rate 29; Glucose Random 121 mg/dL (60-115); Potassium 4.3 mmol/L (3.3-5.1); Sodium 137 mmol/L (135-145); Total Protein 7.2 g/dL (6.5-8.0)
[2024-07-26 15:20] LABS: Thyroid Stimulating Hormone 0.25 uIU/mL (0.32-4.0)
== END 2024-07-26 14:14 | disposition home or self-care (01) ==
LOC: HO.LAB 14:13
PROVIDERS: PCP Internal Medicine; Visit Provider Internal Medicine
DX: C67.9 Malignant neoplasm of bladder, unspecified (principal)
CPT/HCPCS: 36415; 80053; 84443; 85025

== ENCOUNTER 2024-07-30 09:57 | Outpatient (REF) | payer MEDICARE, OTHER, SELFPAY ==
--- NOTE | ~2024-07-30 | PE_ITS ---
EXAMINATION: Fluorine-18 FDG PET/CT Scan CLINICAL INDICATION: Subsequent treatment management. Malignant neoplasm of urinary bladder. Chemotherapy April 2024. PROCEDURE: 62 minutes following the intravenous administration of 22.3 mCi of fluorine 18 FDG, images from the base of the skull to the mid thighs were obtained using a combined PET/CT scanner with CT scan based attenuation correction. No oral contrast was administered. No intravenous contrast was administered. Transverse, coronal, sagittal, and volume reconstruction projections were obtained. The patient's blood glucose as determined by a finger stick, was 86 mg/dl immediately prior to injection. Total CT exam dose-length product 1190.13 mGy-cm * These CT images were obtained using dose optimization techniques as appropriate, variously including the following: Automated exposure control * Adjustment of mA and/or kV according to patient size (this includes techniques or standardized protocols for targeted exams where dose is matched to indication/reason for exam; i.e. extremities or head) * Use of iterative reconstruction technique COMPARISON: The report of a previous PET/CT scan performed at [facility] dated 05/22/2024 is available, but the images from that study are not available for review. CT scan of the chest dated 01/23/[address] urogram dated 12/06/2023 are available for comparison. FINDINGS: (Slice numbers described in this report are numbered superiorly to inferiorly with slice #1 in the head) NECK AND VISUALIZED HEAD: There is diffusely increased FDG activity in the thyroid gland, and this is most intense in the right lobe which shows SUVmax 6.0, slice 54/311. There are no other foci of abnormal FDG activity in the neck or visualized head. All the other activity appears physiological. THORAX: There are no foci of abnormal FDG activity in the chest. No suspicious pulmonary nodules are visualized. Several micronodules less than 0.5 cm in size visualized on the diagnostic 01/23/2024 CT scan of the chest are not apparent on these nondiagnostic CT images. All of those would be much too small to be visualized on these FDG PET images. There is no pleural or pericardial fluid, or pneumothorax. There is no mediastinal, supraclavicular, or axillary lymphadenopathy. A right-sided chest port with internal jugular catheter terminating in the superior vena cava is noted. ABDOMEN AND PELVIS: There is right posterolateral bladder wall thickening which appears similar to that visualized on the 12/06/[address] scan. That study was performed with intravenous contrast and better visualizes the wall thickening which is not well delineated on these nondiagnostic CT images performed without intravenous contrast, but the bladder wall thickening displaces the FDG activity in the urinary bladder in this region and the thickening appears to be similar to 12/06/2023. There is only minimal FDG activity suggested within this thickening, but this is difficult to evaluate because of the intense physiological FDG activity in the urinary bladder. There is mild FDG activity throughout the gastrointestinal tract, without a suspicious focal component, likely physiological. There is diverticulosis without evidence of diverticulitis. The hollow viscera are otherwise unremarkable. A focus of FDG activity in liver Couinaud segment 3 along its inferior margin is present, showing SUVmax 4.7, slice 131/311. A subtle hypodensity measuring approximately 2.5 cm is suggested on these nondiagnostic CT images but is not well delineated. This FDG activity is difficult to localize and may be due to physiological activity in the immediately adjacent stomach. There are no other foci of abnormal FDG activity suggested in the liver which otherwise appears unremarkable. The gallbladder has been resected and there are metallic surgical clips in the gallbladder bed. The spleen is unremarkable. A right percutaneous nephrostomy tube is in place and the right kidney appears significantly smaller in size than the left, but hydronephrosis present in the right kidney on the 12/06/2023 CT urogram is no longer present. The left kidney is unremarkable. The adrenal glands and pancreas are unremarkable. Other than the previously described bladder wall thickening, the pelvic organs are unremarkable. There is no retroperitoneal, mesenteric, pelvic or inguinal lymphadenopathy. MUSCULOSKELETAL: There are no foci of abnormal FDG activity in the osseous structures. There are degenerative changes in the spine but no suspicious sclerotic or lytic lesions are visualized. VASCULAR: Vascular calcifications including coronary are noted. Reference SUVmax Levels: Mediastinal Blood Pool: 2.5, Slice 92/311 Liver: 3.5, Slice 133/3 level PET/PET CT fusion skull to thigh IMPRESSION: 1. Bladder wall thickening is noted with no definite abnormal FDG activity, but the latter is difficult to evaluate because of the intense physiological FDG activity in the bladder. 2. There is a subtle focus of FDG activity possibly a associated with a CT hypodensity in the left lobe, as described above. This is suspicious for a metastatic lesion in the liver, but this appearance may be due to the FDG uptake in the immediately adjacent stomach. Further characterization of this with MRI performed without and with intravenous contrast is recommended, if clinically indicated. 3. No additional abnormalities strongly suspicious for other metastatic or malignant lesions are noted. 4. A few small micronodules visualized in the lungs on the diagnostic 01/23/[address] scan are not visualized on these nondiagnostic CT images, and all of these are too small to be characterized on the FDG PET images. Further monitoring of these with diagnostic CT imaging is recommended. 5. Diffuse FDG activity in the thyroid gland is present, more prominently in the right lobe. A definite nodule is not visualized on the CT images. This is most likely due to autoimmune thyroid disease such as Terrence's thyroiditis or Graves' disease. Correlation with blood thyroid functions including TSH level and thyroid autoantibodies is recommended for initial follow-up. 6. Vascular calcifications including coronary. Electronically signed by: Claus Golden MD 08/07/2024 03:42 PM EDT
== END 2024-07-30 09:58 | disposition home or self-care (01) ==
LOC: HO.PET 09:57
PROVIDERS: Visit Provider Internal Medicine
DX: Z13.89 Encounter for screening for other disorder (principal)

== ENCOUNTER → 2024-08-02 14:31 | Outpatient (BNVA) | payer MEDICARE, OTHER, SELFPAY | PROVIDERS: PCP Internal Medicine; Visit Provider Urology ==

== ENCOUNTER 2024-08-06 14:24 | Outpatient (REF) | payer MEDICARE, OTHER, SELFPAY ==
[2024-08-06 14:36] LABS: MANUAL DIFF FLAG NO
[2024-08-06 14:56] LABS: Basophils Percent Auto 0.2 % (0-2); Hematocrit 27.5 % (42.0-52.0); Hemoglobin 9.1 g/dl (14.0-18.0); Imm Gran Pct Auto 4.6 % (0.0-0.4); Lymphocytes Absolute Auto 0.8 X10*3/uL (1.2-4.9); Lymphocytes Percent Auto 6.8 % (20-40); Mean Corpuscular HGB Conc 33.1 g/dl (31.0-36.0); Mean Corpuscular Hemoglobin 31.3 pg (27.0-33.0); Mean Corpuscular Volume 94.5 fL (80.0-98.0); Monocytes Absolute Auto 0.2 X10*3/uL (0.1-1.2); Monocytes Percent Auto 1.9 % (2-11); NRBC Pct Auto 0.3 /100WBC (0.0-0.2); Neutrophils Absolute Auto 9.5 x10*3/uL (2.0-8.3); Neutrophils Percent Auto 86.5 % (45-73); Platelet Count 300 X10*3/uL (160-400); Red Blood Count 2.91 X10*6/uL (4.60-5.80); Red Cell Distribution Width 16.2 % (11.0-16.0)
[2024-08-06 15:15] LABS: Alanine Aminotransferase 13 U/L (0-40); Albumin Level 3.4 g/dL (3.5-5.0); Alkaline Phosphatase 97 U/L (39-117); Anion Gap 11 (12-20); Aspartate Amino Transferase 15 U/L (5-37); Bilirubin Total 0.2 mg/dL (0.0-1.0); Blood Urea Nitrogen 38 mg/dL (9-16); Calcium 9.2 mg/dL (8.4-10.2); Carbon Dioxide 24 mmol/L (22-29); Chloride 110 mmol/L (96-108); Estimated Glomerular Filt Rate 32; Glucose Random 115 mg/dL (60-115); Potassium 5.3 mmol/L (3.3-5.1); Sodium 140 mmol/L (135-145); Total Protein 6.8 g/dL (6.5-8.0)
== END 2024-08-06 14:25 | disposition home or self-care (01) ==
LOC: HO.LAB 14:24
PROVIDERS: PCP Internal Medicine; Visit Provider Internal Medicine
DX: C67.9 Malignant neoplasm of bladder, unspecified (principal)
CPT/HCPCS: 36415; 80053; 85025

== ENCOUNTER 2024-08-16 13:06 | Outpatient (REF) | payer MEDICARE, OTHER, SELFPAY ==
[2024-08-16 13:35] LABS: MANUAL DIFF FLAG NO
[2024-08-16 13:49] LABS: Basophils Percent Auto 0.2 % (0-2); Hematocrit 30.6 % (42.0-52.0); Hemoglobin 10.2 g/dl (14.0-18.0); Imm Gran Abs Auto 0.42 X10*3/uL (0.00-0.03); Imm Gran Pct Auto 4.3 % (0.0-0.4); Lymphocytes Absolute Auto 0.5 X10*3/uL (1.2-4.9); Lymphocytes Percent Auto 4.7 % (20-40); Mean Corpuscular HGB Conc 33.3 g/dl (31.0-36.0); Mean Corpuscular Hemoglobin 31.6 pg (27.0-33.0); Mean Corpuscular Volume 94.7 fL (80.0-98.0); Mean Platelet Volume 9.4 fL (9.4-12.4); Monocytes Absolute Auto 0.2 X10*3/uL (0.1-1.2); Monocytes Percent Auto 1.7 % (2-11); Neutrophils Absolute Auto 8.8 x10*3/uL (2.0-8.3); Neutrophils Percent Auto 89.1 % (45-73); Platelet Count 239 X10*3/uL (160-400); Red Blood Count 3.23 X10*6/uL (4.60-5.80); Red Cell Distribution Width 17.6 % (11.0-16.0); White Blood Count 9.9 X10*3/uL (4.8-10.8)
[2024-08-16 14:11] LABS: Alanine Aminotransferase 16 U/L (0-40); Albumin Level 3.5 g/dL (3.5-5.0); Alkaline Phosphatase 87 U/L (39-117); Anion Gap 12 (12-20); Aspartate Amino Transferase 21 U/L (5-37); Bilirubin Total 0.3 mg/dL (0.0-1.0); Blood Urea Nitrogen 37 mg/dL (9-16); Carbon Dioxide 23 mmol/L (22-29); Chloride 107 mmol/L (96-108); Estimated Glomerular Filt Rate 35; Glucose Random 124 mg/dL (60-115); Sodium 137 mmol/L (135-145); Total Protein 6.8 g/dL (6.5-8.0)
[2024-08-16 14:25] LABS: Thyroid Stimulating Hormone 18.86 uIU/mL (0.32-4.0)
== END 2024-08-16 13:07 | disposition home or self-care (01) ==
LOC: HO.LAB 13:06
PROVIDERS: PCP Internal Medicine; Visit Provider Internal Medicine
DX: C67.9 Malignant neoplasm of bladder, unspecified (principal); Z43.6 Encounter for attention to other artificial openings of urinary tract; Z46.82 Encounter for fitting and adjustment of non-vascular catheter
CPT/HCPCS: 36415; 80053; 84443; 85025; 99202

== ENCOUNTER 2024-08-16 14:07 | Outpatient (AMB) | payer MEDICARE, OTHER, SELFPAY ==
--- NOTE | 2024-08-16 11:43 | HO.NEPHOV ---
Vital Signs 08/16/24 14:15 Height 6 ft 2 in Weight 253 lb BMI 32.5 BP 104/76 Blood Pressure Location Lt brachial Position Sitting Pulse 111 H Pulse Source Pulse Oximeter Pulse Oximetry (%) 97 Oxygen Delivery Method Room Air Intake Visit Reasons: Renal insufficiency/ LVM Substance Abuse Services Director Required: No Accompanied by: Self / Same As Patient Allergies No Known Allergies [No Known Allergies*] Allergy (Verified 08/16/24 14:17) Medication List - Last Reconciled 08/16/24 by Aniya Collier, RACHEL, TRAFFIC REPRESENTATIVE- amlodipine (Norvasc) 5 mg PO DAILY atorvastatin 20 mg PO BEDTIME 90 days omeprazole magnesium (Prilosec OTC) 20 mg PO DAILY ondansetron 8 mg PO Q8H PRN phenazopyridine (Pyridium) 200 mg PO BID PRN prednisone 60 mg (3 x 20 mg) PO DAILY tamsulosin 0.4 mg PO DAILY PRN HPI Comments Details: 63 y/o male with a medical history of bladder cancer (dx Oct 2023, s/p TURBT Nov 2023, s/p neoadjuvant chemotherapy, right nephrostomy tube placed January 2024, plan for radical cystectomy with ileal loop scheduled for Jul 2024). Unfortunately May imaging and subsequent biopsy through [facility] revealed urothelial carcinoma, tumor invades muscularis propria, lymphatic vessel invasion identified. He is on enfortumab vedotin with pembrolizumab therapy every 21 days since 06/11/24, and toelrating well. Followed by [facility] [facility] Moon Other medical history: neuropathy, carpal tunnel, hypercholesterolemia, osteoarthritis. Patient completing neoadjuvant chemotherapy, Radical cystectomy with ileal loop planned for July but delayed due to metastases Right nephrostomy tube draining well per patient Referred to nephrology for management of CKD creatinine trend: 09/16/19 1.13 10/27/21 1.41 12/29/21 1.10 09/30/23 1.38 11/29/23 1.47 01/16/24 1.48 02/02/24 1.35 03/04/24 1.43 03/16/24 1.59 - gradually increasing since then 08/06/24 2.10 08/16/24 1.93 GFR 32 on 08/06/24, 35 potassium mildly elevated at 5.3 TSH is low (07/26/24 was 0.25) chronic normocytic anemia since December 2023 Imagin07/30/24 PET shows right kidney appears significantly smaller in size than the left, but hydronephrosis present in the right kidney on the 12/06/2023 CT urogram is no longer present. The left kidney is unremarkable. Renal US 01/17/24 shows moderate right-sided hydronephrosis, similar to prior studies. *Received cisplatin therapy February through April 2024 reports recently started amlodipine 5mg daily for recent/new increase in blood pressure denies shortness of breath chest pain abdominal pain- some constipation but states it is minimal no urinary symptoms no back pain no swelling in legs only takes tylenol- no NSAIDs hydration- he is working on this no salt added to food family history: nothing to speak of, denies family hx of kidney disease PFSH Medical History (Updated 08/16/24 @ 15:12 by Aniya Collier, DNP, TRAFFIC REPRESENTATIVE-BC) Port-A-Cath in place (02/16/24) History of blood transfusion Bladder cancer Obesity (BMI 30-39.9) Pure hypercholesterolemia Hyperlipemia Carpal tunnel syndrome Surgical History (Updated 07/22/24 @ 10:16 by Antonia Moon MD) Mass of left axilla (05/31/24) Hx of colonoscopy Hx of cystoscopy History of surgery History of hand surgery History of ankle surgery History of cholecystectomy Family History Father Multiple sclerosis, primary progressive Mother No problems noted. 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 Current occupational exposures/hazards: No Cognitive needs: No Hearing needs: No Vision needs: Yes Review of Systems Const Reports fatigue and Denies headache(s) ENT Denies headache(s) Card Denies dyspnea Resp Denies dyspnea GI Denies abdominal pain, Denies constipation and Denies diarrhea Denies hematuria, Denies oliguria, Denies dysuria, Denies flank pain, Denies urinary frequency and Denies urinary incontinence Musc Denies back pain, Denies arthralgias and Denies muscle cramps Skin/Breast Denies rash Neuro Denies headache(s) Endo Reports fatigue Physical Exam Vital Signs: Last Vital Signs Pulse 111 H 08/16/24 14:15 BP 104/76 08/16/24 14:15 Pulse Ox 97 08/16/24 14:15 Oxygen Delivery Method Room Air 08/16/24 14:15 BMI result Body Mass Index 32.5 Const General: no acute distress Resp Effort & Inspection: normal respiratory effort and able to speak in complete sentences Auscultation: clear to auscultation bilaterally Cardio Jugular venous distension: no JVD Rate: regular rate and tachycardic Rhythm: regular rhythm Heart sounds: S1 normal heart sound present, S2 normal heart sound present and no murmurs GI Palpation (GI): Soft to palpation and nontender General: Yes no CVA tenderness Back/Spine/Pelvis Back: no CVA tenderness Skin Lesions: no lesions Rashes: no rashes Extrem General: No no pedal edema and No edema Results Reviewed Nephrology Results: Hgb 10.2 g/dl (14.0-18.0) L 08/16/24 WBC 9.9 X10*3/uL (4.8-10.8) 08/16/24 Plt Count 239 X10*3/uL (160-400) 08/16/24 Sodium 137 mmol/L (135-145) 08/16/24 Potassium 5.0 mmol/L (3.3-5.1) 08/16/24 Chloride 107 mmol/L (96-108) 08/16/24 Carbon Dioxide 23 mmol/L (22-29) 08/16/24 BUN 37 mg/dL (9-16) H 08/16/24 Creatinine 1.93 mg/dL (0.5-1.4) H 08/16/24 Calcium 9.0 mg/dL (8.4-10.2) 08/16/24 Assessment & Plan Assessment & Plan (1) CKD stage 3b, GFR 30-44 ml/min: Code(s): N18.32 - Chronic kidney disease, stage 3b Category: Medical (2) Malignant neoplasm metastatic from bladder: Code(s): C67.9 - Malignant neoplasm of bladder, unspecified Category: Surgical (3) Hematuria: Code(s): R31.9 - Hematuria, unspecified Category: Medical Qualifiers: Hematuria type: gross Qualified Code(s): R31.0 - Gross hematuria Plan Likely tubular injury secondary to cisplatin treatment for bladder cancer in setting of reduced right-sided renal function from ongoing unilateral hydronephrosis related to bladder cancer Patient has had hematuria in the initial presentation of his bladder cancer, though likely related to bladder cancer, will repeat UA and urine protein as should also rule out glomerular causes of hematuria/renal injury e.g. membranous nephropathy Creatinine has recently been trending down and GFR improving patient has low blood pressure today and some tachycardia- may be reflexive from new amlodipine addition for HTN management advised patient will reduce amlodipine dose to 2.5mg amlodipine daily He will continue to work on adequate daily hydration He continues to avoid salt, NSAIDs He continues to work on healthy diet, exercise He will follow up in 6-8 weeks in the office Orders: Orders Creatinine Urine Today Aniya Collier DNP, [facility] C67.9 - Malignant neoplasm of bladder, unspecified, N18.32 - Chronic kidney disease, stage 3b, R31.9 - Hematuria, unspecified UA w Microscopic Today Aniya Collier DNP, TRAFFIC REPRESENTATIVE-BC C67.9 - Malignant neoplasm of bladder, unspecified, N18.32 - Chronic kidney disease, stage 3b, R31.9 - Hematuria, unspecified Total Protein Urine Random Today Aniya Collier DNP, TRAFFIC REPRESENTATIVE-BC C67.9 - Malignant neoplasm of bladder, unspecified, N18.32 - Chronic kidney disease, stage 3b, R31.9 - Hematuria, unspecified Medications: Changed From tamsulosin take with meal at dinner 0.4 mg PO DAILY 90 days 90 caps 1RF To tamsulosin take with meal at dinner 0.4 mg PO DAILY PRN Sangita Hopkins MD From amlodipine (Norvasc) 5 mg PO DAILY 30 tabs 3RF To amlodipine 2.5 mg PO DAILY 90 tabs 3RF Km Figueroa MD Coding Level of Care Code New Pt Level 4 (25575) Diagnoses CKD stage 3b, GFR 30-44 ml/min N18.32 Malignant neoplasm metastatic from bladder C67.9 Gross hematuria R31.0 Hematuria type: gross
[2024-08-16 14:15] VITALS: BP 104/76; PULSE 111; O2SAT 97; BMI 32.5
== END 2024-08-16 14:59 | disposition home or self-care (01) ==
PROVIDERS: PCP Internal Medicine; Visit Provider Internal Medicine Hypertension Specialist
DX: N18.32 Chronic kidney disease, stage 3b (principal); C67.9 Malignant neoplasm of bladder, unspecified; R31.0 Gross hematuria
CPT/HCPCS: 99204

== ENCOUNTER 2024-08-19 09:29 | Outpatient (REF) | payer MEDICARE, OTHER, SELFPAY ==
[2024-08-19 10:57] LABS: Creatinine Urine 43.82 mg/dL; Total Protein Urine Random 24 mg/dL (<12)
[2024-08-19 10:58] LABS: Appearance Urine Cloudy; Color Urine Yellow; Glucose Urine UA Negative (Negative); Leukocyte Esterase Urine Large (3+) (Negative); Nitrite Urine Positive (Negative); PH 5.5 (5.0-9.0); Specific Gravity - Urine 1.015 (1.005-1.025); UMIC TRIGGER UA YES; Urine Blood Small (1+) (Negative); Urine Ketones Negative (Negative); Urine Protein Trace mg/dL (Neg-Trace)
[2024-08-19 11:03] LABS: Bacteria Urine 4+ (None Seen); Hyaline Casts Urine 0-2 /LPF (0-2); Squamous Epithelial Cell Urine 0-2 /HPF (0-2); WBC Urine >50 /HPF (0-5)
== END 2024-08-19 09:30 | disposition home or self-care (01) ==
LOC: HO.LAB 09:29
PROVIDERS: Urology; PCP Internal Medicine; Visit Provider Nurse Practitioner Family
DX: E03.2 Hypothyroidism due to medicaments and other exogenous substances (principal); T45.1X5A Adverse effect of antineoplastic and immunosuppressive drugs, initial encounter; C67.9 Malignant neoplasm of bladder, unspecified; R31.9 Hematuria, unspecified; N18.32 Chronic kidney disease, stage 3b
CPT/HCPCS: 81001; 82570; 84156; 87086; 87088; 87186; 99202

== ENCOUNTER 2024-08-19 14:10 | Outpatient (AMB) | payer MEDICARE, OTHER, SELFPAY ==
[2024-08-19 14:23] VITALS: BP 160/96; BMI 33.7
--- NOTE | 2024-08-19 14:23 | MHC.OFFVIS ---
Vital Signs 08/19/24 14:23 Height 6 ft 2 in Weight 262 lb 9.129 oz BMI 33.7 BP 160/96 H Blood Pressure Location Lt brachial Position Sitting Intake Visit Reasons: Abnormal thyroid function-conf Intake Note: Patient present today for abnormal thyroid function. Human Resources Coordinator Required: No Accompanied by: Self / Same As Patient Allergies No Known Allergies [No Known Allergies*] Allergy (Verified 08/19/24 14:34) Medication List - Last Reconciled 08/19/24 by Dilcia Brady MD amlodipine 2.5 mg PO DAILY atorvastatin 20 mg PO BEDTIME 90 days omeprazole magnesium (Prilosec OTC) 20 mg PO DAILY ondansetron 8 mg PO Q8H PRN phenazopyridine (Pyridium) 200 mg PO BID PRN prednisone 60 mg (3 x 20 mg) PO DAILY tamsulosin 0.4 mg PO DAILY PRN HPI Comments Details: 63 years male with past medical history significant for metastatic bladder cancer on immunotherapy with pembrolizumab here today to establish care for hypothyroidism. With regards to his bladder cancer was diagnosed in November 2023, underwent TURBT on 12/12/2023 . Biopsy revealed invasive urothelial carcinoma, high-grade, tumor invades muscularis propria, lymphatic vessel invasion is identified. He started neoadjuvant chemotherapy with cisplatin 70 mg/m2/gemcitabine 1000mg/m2 D 1 and 8 q 21 days from 02/27/2024 until 04/2024. He was diagnosed with metastatic disease in 06/11/2024 based on PET-CT. Patient underwent ultrasound-guided biopsy of left gluteal mass which revealed metastatic poorly differentiated carcinoma. He also underwent excision of left axillary mass on 05/31/2024, pathology revealed poorly differentiated carcinoma compatible with metastatic urothelial carcinoma. Patient started systemic therapy with enfortumab vedotin with pembrolizumab administered every 21 days in 06/11/2024. His labs when showed normal TSH from 06/10/2024 with subsequently developing low TSH levels on 06/28/2024 at 0.21. Had further suppression of TSH with labs going down to 0.02 on 07/19/2024. Free T4 level was normal. He subsequently developed elevated TSH of 18.86 on 08/16/2024 and most recently blood work done on 08/19/2024 showed TSH of 29.74.. This pattern is consistent with thyroiditis seen in the setting of immune checkpoint inhibitor therapies which are known to cause endocrinopathies. In terms of thyroid dysfunction, PD 1 inhibitor such as pembrolizumab are the ones most commonly involve in causing thyroid dysfunction. Generally immune checkpoint inhibitor therapy does not need to be interrupted or discontinued. And this pattern is very commonly seen were patients develop thyroiditis with low TSH from 1-6 weeks post starting therapy subsequently followed by high TSH around 8 weeks of therapy. Reports occasional fatigue and nausea. Denies lightheadedness or dizziness. Bowel movements are regular. No hair skin changes . On prednisone taper with chemotherapy. No compressive symptoms. No family history of thyroid disease or thyroid cancer. He denies biotin use. Laboratory Tests 06/10/24 06/28/24 07/05/24 09:29 15:23 13:25 TSH 1.31 0.21 L 0.04 L Free T4 Total T3 07/08/24 07/19/24 07/26/24 10:22 13:23 14:41 TSH 0.02 L 0.02 L 0.25 L Free T4 1.41 Total T3 129 08/16/24 08/19/24 13:33 10:40 TSH 18.86 H 29.74 H Free T4 Total T3 PFSH Medical History (Updated 08/19/24 @ 15:05 by Dilcia Brady MD) Hypothyroidism Port-A-Cath in place (02/16/24) History of blood transfusion Bladder cancer Obesity (BMI 30-39.9) Pure hypercholesterolemia Hyperlipemia Carpal tunnel syndrome Surgical History Mass of left axilla (05/31/24) Hx of colonoscopy Hx of cystoscopy History of surgery History of hand surgery History of ankle surgery History of cholecystectomy Family History Father Multiple sclerosis, primary progressive Mother No problems noted. 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 His labs when showed normal TSH from 06/10/2024 with subsequently developing low TSH levels on 06/28/2024 at 0.21. Had further suppression of TSH with labs going down to 0.02 on 07/19/2024. Free T4 level was normal. He subsequently developed elevated TSH of 18.86 on 08/16/2024 and most recently blood work done on 08/19/2024 showed TSH of 29.74.. This pattern is consistent with thyroiditis seen in the setting of immune checkpoint inhibitor therapies which are known to cause endocrinopathies. In terms of thyroid dysfunction, PD 1 inhibitor such as pembrolizumab are the ones most commonly involve in causing thyroid dysfunction. Generally immune checkpoint inhibitor therapy does not need to be interrupted or discontinued. And this pattern is very commonly seen were patients develop thyroiditis with low TSH from 1-6 weeks post starting therapy subsequently followed by high TSH around 8 weeks of therapy. He has a immune checkpoint inhibitor induced hypothyroidism. We will start him that levothyroxine replacement therapy. Given his age of 63 years, I will start him at a low dose of 50 mcg daily. He will likely require a titrating up on the medication but we will have him repeat labs in 6 weeks. Plan: -start levothyroxine 50 mcg daily -ordered TSH, free T4 to be done in 6 weeks -follow up in 3 months Plan I spent 45 minutes in reviewing the record, seeing the patient and documenting in the medical record. Orders: Orders Free T4 (Free Thyroxine) 6 Weeks E03.9 - Hypothyroidism, unspecified Thyroid Stimulating Hormone 6 Weeks E03.9 - Hypothyroidism, unspecified Thyroid Peroxidase Antibodies 6 Weeks E03.9 - Hypothyroidism, unspecified Medications: New levothyroxine 50 mcg PO DAILY 30 tabs 4RF Patient Instructions: Start levothyroxine 50 mcg tablet daily, first thing in the morning , wait an hour before breakfast or coffee or tea Do blood work in 6 weeks I will message you on the portal with results Follow up in 3 months Coding Level of Care Code New Pt Level 4 (59420) Diagnoses Hypothyroidism due to medication E03.2 Hypothyroidism type: due to medication Time Spent (min) 45
== END 2024-08-19 14:53 | disposition home or self-care (01) ==
LOC: HO.ENCR 14:11
PROVIDERS: PCP Internal Medicine; Visit Provider Student in an Organized Health Care Education/Training Program
DX: E03.2 Hypothyroidism due to medicaments and other exogenous substances (principal)
CPT/HCPCS: 99204

== ENCOUNTER 2024-08-21 08:24 | Outpatient (REF) | payer MEDICARE, OTHER, SELFPAY ==
[2024-08-21 09:27] LABS: Appearance Urine Turbid; Color Urine Yellow; Glucose Urine UA Negative (Negative); Leukocyte Esterase Urine Large (3+) (Negative); Nitrite Urine Positive (Negative); UMIC TRIGGER UACC YES; Urine Blood Small (1+) (Negative); Urine Ketones Negative (Negative); Urine Protein Trace mg/dL (Neg-Trace)
[2024-08-21 09:30] LABS: Bacteria Urine 4+ (None Seen); Hyaline Casts Urine 0-2 /LPF (0-2); Squamous Epithelial Cell Urine 0-2 /HPF (0-2); UACC Culture Trigger YES; WBC Urine >50 /HPF (0-5)
== END 2024-08-21 08:25 | disposition home or self-care (01) ==
LOC: HO.LAB 08:24
PROVIDERS: PCP Internal Medicine; Visit Provider Nurse Practitioner Family
DX: R32 Unspecified urinary incontinence (principal); R39.11 Hesitancy of micturition; R39.9 Unspecified symptoms and signs involving the genitourinary system
CPT/HCPCS: 81001; 87086; 87088; 87186

== ENCOUNTER 2024-08-24 07:54 | Outpatient (REF) | payer MEDICARE, OTHER, SELFPAY ==
[2024-08-24 08:04] LABS: MANUAL DIFF FLAG NO
[2024-08-24 08:08] LABS: Basophils Percent Auto 0.3 % (0-2); Eosinophils Percent Auto 0.5 % (0-4); Hematocrit 32.4 % (42.0-52.0); Hemoglobin 10.6 g/dl (14.0-18.0); Imm Gran Abs Auto 0.12 X10*3/uL (0.00-0.03); Imm Gran Pct Auto 1.6 % (0.0-0.4); Lymphocytes Absolute Auto 1.3 X10*3/uL (1.2-4.9); Lymphocytes Percent Auto 17.3 % (20-40); Mean Corpuscular HGB Conc 32.7 g/dl (31.0-36.0); Mean Corpuscular Hemoglobin 31.3 pg (27.0-33.0); Mean Corpuscular Volume 95.6 fL (80.0-98.0); Mean Platelet Volume 8.8 fL (9.4-12.4); Monocytes Absolute Auto 0.4 X10*3/uL (0.1-1.2); Monocytes Percent Auto 5.4 % (2-11); Neutrophils Absolute Auto 5.7 x10*3/uL (2.0-8.3); Neutrophils Percent Auto 74.9 % (45-73); Platelet Count 218 X10*3/uL (160-400); Red Blood Count 3.39 X10*6/uL (4.60-5.80); Red Cell Distribution Width 18.2 % (11.0-16.0); White Blood Count 7.7 X10*3/uL (4.8-10.8)
[2024-08-24 08:55] LABS: Alanine Aminotransferase 21 U/L (0-40); Albumin Level 3.6 g/dL (3.5-5.0); Anion Gap 17 (12-20); Aspartate Amino Transferase 35 U/L (5-37); Bilirubin Total 0.2 mg/dL (0.0-1.0); Blood Urea Nitrogen 46 mg/dL (9-16); Calcium 9.2 mg/dL (8.4-10.2); Carbon Dioxide 23 mmol/L (22-29); Chloride 108 mmol/L (96-108); Estimated Glomerular Filt Rate 21; Glucose Random 86 mg/dL (60-115); Potassium 4.6 mmol/L (3.3-5.1); Sodium 143 mmol/L (135-145); Thyroid Stimulating Hormone 51.52 uIU/mL (0.32-4.0); Total Protein 7.1 g/dL (6.5-8.0)
[2024-08-24 09:14] LABS: Alkaline Phosphatase 89 U/L (39-117)
== END 2024-08-24 07:55 | disposition home or self-care (01) ==
LOC: HO.LAB 07:54
PROVIDERS: PCP Internal Medicine; Visit Provider Internal Medicine
DX: C67.9 Malignant neoplasm of bladder, unspecified (principal)
CPT/HCPCS: 36415; 80053; 84443; 85025

== ENCOUNTER → 2024-08-30 14:17 | Outpatient (BNVA) | payer MEDICARE, OTHER, SELFPAY | PROVIDERS: PCP Internal Medicine; Visit Provider Urology ==

== ENCOUNTER 2024-09-02 12:28 | Outpatient (REF) | payer MEDICARE, OTHER, SELFPAY ==
[2024-09-02 13:45] LABS: Appearance Urine Clear; Color Urine Yellow; Glucose Urine UA Negative (Negative); Leukocyte Esterase Urine Trace (Negative); Nitrite Urine Negative (Negative); PH 6.5 (5.0-9.0); Specific Gravity - Urine 1.015 (1.005-1.025); UMIC TRIGGER UA YES; Urine Blood Negative (Negative); Urine Ketones Negative (Negative); Urine Protein 30 (1+) mg/dL (Neg-Trace)
[2024-09-02 13:59] LABS: Bacteria Urine None Seen (None Seen); Hyaline Casts Urine 0-2 /LPF (0-2); RBC Urine 0-2 /HPF (0-2); Squamous Epithelial Cell Urine 0-2 /HPF (0-2)
== END 2024-09-02 12:29 | disposition home or self-care (01) ==
LOC: HO.LAB 12:28
PROVIDERS: PCP Internal Medicine; Visit Provider Urology
DX: N39.0 Urinary tract infection, site not specified (principal); R39.9 Unspecified symptoms and signs involving the genitourinary system; R39.11 Hesitancy of micturition; R32 Unspecified urinary incontinence
CPT/HCPCS: 81001; 87086

== ENCOUNTER 2024-09-06 12:42 | Outpatient (REF) | payer MEDICARE, OTHER, SELFPAY ==
[2024-09-06 12:53] LABS: MANUAL DIFF FLAG NO
[2024-09-06 13:34] LABS: Basophils Percent Auto 0.5 % (0-2); Eosinophils Percent Auto 0.5 % (0-4); Hematocrit 32.8 % (42.0-52.0); Hemoglobin 10.7 g/dl (14.0-18.0); Imm Gran Abs Auto 0.25 X10*3/uL (0.00-0.03); Imm Gran Pct Auto 3.9 % (0.0-0.4); Lymphocytes Percent Auto 15.2 % (20-40); Mean Corpuscular HGB Conc 32.6 g/dl (31.0-36.0); Mean Corpuscular Hemoglobin 31.4 pg (27.0-33.0); Mean Corpuscular Volume 96.2 fL (80.0-98.0); Mean Platelet Volume 9.6 fL (9.4-12.4); Monocytes Absolute Auto 0.6 X10*3/uL (0.1-1.2); Monocytes Percent Auto 8.6 % (2-11); Neutrophils Absolute Auto 4.6 x10*3/uL (2.0-8.3); Neutrophils Percent Auto 71.3 % (45-73); Platelet Count 173 X10*3/uL (160-400); Red Blood Count 3.41 X10*6/uL (4.60-5.80); Red Cell Distribution Width 18.7 % (11.0-16.0); White Blood Count 6.4 X10*3/uL (4.8-10.8)
[2024-09-06 14:10] LABS: Alanine Aminotransferase 23 U/L (0-40); Albumin Level 3.8 g/dL (3.5-5.0); Alkaline Phosphatase 98 U/L (39-117); Anion Gap 10 (12-20); Aspartate Amino Transferase 31 U/L (5-37); Bilirubin Total 0.6 mg/dL (0.0-1.0); Blood Urea Nitrogen 29 mg/dL (9-16); Calcium 8.6 mg/dL (8.4-10.2); Carbon Dioxide 27 mmol/L (22-29); Chloride 103 mmol/L (96-108); Estimated Glomerular Filt Rate 37; Glucose Random 94 mg/dL (60-115); Potassium 4.7 mmol/L (3.3-5.1); Sodium 135 mmol/L (135-145); Total Protein 6.9 g/dL (6.5-8.0)
[2024-09-06 14:15] LABS: Thyroid Stimulating Hormone 46.98 uIU/mL (0.32-4.0)
== END 2024-09-06 12:43 | disposition home or self-care (01) ==
LOC: HO.LAB 12:42
PROVIDERS: PCP Internal Medicine; Visit Provider Internal Medicine
DX: C67.9 Malignant neoplasm of bladder, unspecified (principal)
CPT/HCPCS: 36415; 80053; 84443; 85025

== ENCOUNTER 2024-09-13 11:50 | Outpatient (REF) | payer MEDICARE, OTHER, SELFPAY ==
[2024-09-13 12:12] LABS: MANUAL DIFF FLAG NO
[2024-09-13 12:37] LABS: Basophils Percent Auto 0.5 % (0-2); Eosinophils Absolute Auto 0.1 X10*3/uL (0.0-0.4); Eosinophils Percent Auto 1.2 % (0-4); Hematocrit 32.6 % (42.0-52.0); Hemoglobin 10.9 g/dl (14.0-18.0); Imm Gran Abs Auto 0.11 X10*3/uL (0.00-0.03); Imm Gran Pct Auto 1.9 % (0.0-0.4); Lymphocytes Absolute Auto 1.1 X10*3/uL (1.2-4.9); Lymphocytes Percent Auto 19.1 % (20-40); Mean Corpuscular HGB Conc 33.4 g/dl (31.0-36.0); Mean Corpuscular Hemoglobin 31.2 pg (27.0-33.0); Mean Corpuscular Volume 93.4 fL (80.0-98.0); Monocytes Absolute Auto 0.6 X10*3/uL (0.1-1.2); Neutrophils Absolute Auto 3.9 x10*3/uL (2.0-8.3); Neutrophils Percent Auto 67.3 % (45-73); Platelet Count 185 X10*3/uL (160-400); Red Blood Count 3.49 X10*6/uL (4.60-5.80); Red Cell Distribution Width 19.2 % (11.0-16.0); White Blood Count 5.8 X10*3/uL (4.8-10.8)
[2024-09-13 13:18] LABS: Alanine Aminotransferase 24 U/L (0-40); Albumin Level 3.8 g/dL (3.5-5.0); Alkaline Phosphatase 109 U/L (39-117); Anion Gap 13 (12-20); Aspartate Amino Transferase 48 U/L (5-37); Bilirubin Total 0.7 mg/dL (0.0-1.0); Blood Urea Nitrogen 23 mg/dL (9-16); Calcium 9.3 mg/dL (8.4-10.2); Carbon Dioxide 27 mmol/L (22-29); Chloride 100 mmol/L (96-108); Estimated Glomerular Filt Rate 31; Glucose Random 81 mg/dL (60-115); Potassium 4.3 mmol/L (3.3-5.1); Sodium 136 mmol/L (135-145); Total Protein 6.9 g/dL (6.5-8.0)
[2024-09-13 15:44] LABS: Free T4 (Free Thyroxine) 0.61 ng/dL (0.71-1.85)
== END 2024-09-13 11:51 | disposition home or self-care (01) ==
LOC: HO.LAB 11:50
PROVIDERS: PCP Internal Medicine; Visit Provider Internal Medicine
DX: C67.9 Malignant neoplasm of bladder, unspecified (principal)
CPT/HCPCS: 36415; 80053; 84439; 84443; 85025

== ENCOUNTER 2024-09-17 06:05 | Outpatient (REF) | payer MEDICARE, OTHER, SELFPAY ==
[2024-09-17 08:02] LABS: Cortisol Random < 1.0 ug/dL
[2024-09-24 14:48] LABS: Adrenocorticotropic Hormone 7 pg/mL (6-50)
== END 2024-09-17 06:06 | disposition home or self-care (01) ==
LOC: HO.LAB 06:05
PROVIDERS: PCP Internal Medicine; Visit Provider Internal Medicine
DX: C67.9 Malignant neoplasm of bladder, unspecified (principal)
CPT/HCPCS: 36415; 82024; 82533

== ENCOUNTER 2024-09-23 12:27 | Outpatient (REF) | payer MEDICARE, OTHER, SELFPAY ==
[2024-09-23 13:26] LABS: Anion Gap 15 (12-20); Blood Urea Nitrogen 41 mg/dL (9-16); Calcium 9.5 mg/dL (8.4-10.2); Carbon Dioxide 24 mmol/L (22-29); Chloride 107 mmol/L (96-108); Estimated Glomerular Filt Rate 32; Glucose Random 74 mg/dL (60-115); Potassium 4.4 mmol/L (3.3-5.1); Sodium 142 mmol/L (135-145)
[2024-09-23 13:42] LABS: Free T4 (Free Thyroxine) 0.58 ng/dL (0.71-1.85); Thyroid Stimulating Hormone 47.81 uIU/mL (0.32-4.0)
[2024-09-24 08:59] LABS: DHEA Sulfate 49 mcg/dL (20-217)
[2024-09-25 10:59] LABS: Thyroid Peroxidase Antibodies 86 (H)
[2024-09-27 10:38] LABS: Renin 0.71 ng/mL/h (0.25-5.82)
== END 2024-09-23 12:28 | disposition home or self-care (01) ==
LOC: HO.LAB 12:27
PROVIDERS: PCP Internal Medicine; Visit Provider Student in an Organized Health Care Education/Training Program
DX: E27.40 Unspecified adrenocortical insufficiency (principal); E03.9 Hypothyroidism, unspecified; N13.30 Unspecified hydronephrosis; C67.9 Malignant neoplasm of bladder, unspecified; N18.32 Chronic kidney disease, stage 3b; R31.0 Gross hematuria
CPT/HCPCS: 36415; 80048; 81003; 82088; 82627; 84244; 84439; 84443; 86376; 99212

== ENCOUNTER 2024-09-23 13:56 | Outpatient (AMB) | payer MEDICARE, OTHER, SELFPAY ==
--- NOTE | 2024-09-22 17:29 | A.OFFVIS_ITS ---
Intake Visit Reasons: 6m follow up Intake Note: Patient is Present for Follow Up Metastatic Bladder cancer Urology Medication: Tamsulosin (*PRN) Antibiotic Allergies: None Blood Thinners: None Folder Tier Required: No Accompanied by: Self / Same As Patient Allergies No Known Allergies [No Known Allergies*] Allergy (Verified 09/23/24 14:58) Medication List - Last Reconciled 09/23/24 by Sangita Hopkins MD amlodipine 2.5 mg PO DAILY atorvastatin 20 mg PO BEDTIME 90 days hydrocortisone 10 mg PO TID levothyroxine 75 mcg PO DAILY omeprazole magnesium (Prilosec OTC) 20 mg PO DAILY ondansetron 8 mg PO Q8H PRN prednisone 60 mg (3 x 20 mg) PO DAILY tamsulosin 0.4 mg PO DAILY PRN HPI Comments Details: 09/23/24--6 month FU. Brady has been diagnosed with invasive bladder cancer. s/p TURBT 12/12/23. PET-CT performed at [facility] showed multiple subcutaneous and intramuscular nodules demonstrating [id number] FDG uptake. Predominantly in the left axilla, left gluteal region. Moderate FDG uptake corresponding to right posterolateral bladder mass. No FDG avid abdominopelvic lymphadenopathy. Patient underwent ultrasound-guided biopsy of left gluteal mass which revealed metastatic poorly differentiated carcinoma. Immunostains showed positivity for CK7, focal positive tiara 3 compatible with metastatic urothelial carcinoma. Also left axillarymass, excision: Poorly differentiated carcinoma, well-circumscribed subcutaneous nodule, completely excised; compatible with metastatic urothelial carcinoma. He is followed by Oncology. Last Neph tube change 05/23/24. He is seen by the urology nurse q 2 wks to check Nephrostomy site and change dressing. Will sched Neph tube change in 8-10 weeks. Review of chart: 03/28/24--Brady has been diagnosed with invasive bladder cancer. s/p TURBT 12/12/23. Clinical stage T2/[address] chest and bone scan did not show evidence of metastatic disease. He had placement of right nephrostomy tube in the right kidney on 02/12/2024. He started on neoadjuvant chemotherapy 02/27/2024. He has had consultation with Dr. Lawrence at [facility] who has discussed radical cystoprostatectomy with possible continent diversion. He states he is scheduled to have a colonoscopy prior to procedure and tentative date for cystectomy in July. He feels he is tolerating the chemotheray well. I have evaluated the right nephrotomy tube site, no signes of infection, dressing changed. He has scheduled visits with my nurse to check nephrostomy. 12/27/2023--Brady is a 63-year-old male who is status post cystoscopy transurethral resection of bladder tumor on 12/12/2023. Preoperative CT scan of the abdomen and pelvis was significant for right hydronephrosis. At the time of the cystoscopy procedure I was unable to visualize the right ureteral orifice. I reviewed pathology results with the patient. Bladder tumor, transurethral resection: -Invasive urothelial carcinoma, high- grade -Tumor invades muscularis propria. I have discussed further treatment recommendations for neoadjuvant chemo with Oncology and evaluation for cystectomy, will referred to Dr. Meilnda Orr. 11/22/2023--Brady is a very pleasant 63-year-old male patient of Dr. Rizzo. He has a past medical history hyperlipidemia, obesity, and carpal tunnel syndrome. He presents to the office today for a cystoscopy. Of note, patient was seen approximately 2 weeks ago as a new patient for gross hematuria that initially started 10/14. He had underwent imaging with PCP prior to his new patient a ppointment here at which time retroperitoneal ultrasound noted right-sided bladder mass with moderate right-sided hydronephrosis. This is likely responsible for the right sided hydronephrosis. Mildly enlarged prostate. Urine cytology from last office visit 11/14--Suspicious for high-grade urothelial carcinoma. He does report a 25-30 year smoking history of approximately 1 pack per day however quit approximately 13 years ago. He does report noting episodes of dysuria with gross hematuria he otherwise denies urinary urgency, urinary frequency, incontinence, nocturia, hematuria, foul smelling urine, changes to urinary stream, flank pain, fever, and or chills. He is happy with his current voiding parameters. He denies any known chemical exposure. In review of patient's chart it appears PSAs are as follows: 11/13--0.5, 10/14--0.8. In office cystoscopy performed: Large right bladder mass noted unable to differentiate UO. Discussed further treatment options with cystoscopy TURBT. Discussed risks and benefits at length. Discussed potential for right-sided ureteral stent placement given position of bladder tumor and retroperitoneal ultrasound noting right-sided hydronephrosis. All questions were answered. Discussed obtaining CT urogram for further assessment evaluation as well as labs [facility] Medical History Adrenal insufficiency Hypothyroidism Port-A-Cath in place (02/16/24) History of blood transfusion Bladder cancer Obesity (BMI 30-39.9) Pure hypercholesterolemia Hyperlipemia Carpal tunnel syndrome Surgical History Mass of left axilla (05/31/24) Hx of colonoscopy Hx of cystoscopy History of surgery History of hand surgery History of ankle surgery History of cholecystectomy Family History Father Multiple sclerosis, primary progressive Mother No problems noted. 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 Current occupational exposures/hazards: No Cognitive needs: No Hearing needs: No Vision needs: Yes Review of Systems Const All systems reviewed & are unremarkable except as noted in HPI and below Reports no additional complaints Eyes Reports no additional complaints ENT Reports no additional complaints Card Reports no additional complaints Resp Reports no additional complaints GI Reports no additional complaints Reports as per HPI Musc Reports no additional complaints Skin/Breast Reports system reviewed and no additional complaints, except as documented Neuro Reports no additional complaints Psych Reports no additional complaints Endo Reports no additional complaints Hpil/Lymph Reports no additional complaints Aller/Immun Reports no additional complaints Results AMB Urinalysis, Automated UA Leukoctes 500 Arnold/uL Last Edit by EMANUEL Santiago on 09/23/24 15:00 UA Nitrite Negative Last Edit by Magui Almaguer, RMA on 09/23/24 15:00 UA Urobilinogen 0.2 mg/dL Last Edit by Magui Almaguer, RMA on 09/23/24 15:0 0 UA Protein 15 mg/dL Last Edit by Magui Almaguer, RMA on 09/23/24 15:00 UA pH 6.0 Last Edit by Magui Almaguer, RMA on 09/23/24 15:00 UA Blood 80 Kaveh/uL Last Edit by Maugi Almaguer, RMA on 09/23/24 15:00 UA Specific Corinne 1.015 Last Edit by Magui Almaguer, RMA on 09/23/24 15: 00 UA Ketone Negative Last Edit by Magui Almaguer, RMA on 09/23/24 15:00 UA Bilirubin 0 mg/dL Last Edit by Magui Almaguer, RMA on 09/23/24 15:00 UA Glucose 0 mg/dL Last Edit by Magui Almaguer, A on 09/23/24 15:00 Results Reviewed Results Reviewed: Laboratory Last Values Urine pH (Auto) 6.0 09/23/24 14:58 Specific Corinne (Auto) 1.015 09/23/24 14:58 Urine Protein (Auto) 15 mg/dL 09/23/24 14:58 Glucose (UA)(Auto) 0 mg/dL 09/23/24 14:58 Urine Ketones (Auto) Negative 09/23/24 14:58 Urine Blood (Auto) 80 Kaveh/uL 09/23/24 14:58 Urine Nitrite (Auto) Negative 09/23/24 14:58 Urine Bilirubin (Auto) 0 mg/dL 09/23/24 14:58 Urine Urobilinogen (Auto) 0.2 mg/dL 09/23/24 14:58 Leukocyte Esterase (Auto) 500 Arnold/uL 09/23/24 14:58 Date of Service: 07/30/24 Procedure(s): PET CT fusion skull to thigh EXAMINATION: Fluorine-18 FDG PET/CT Scan CLINICAL INDICATION: Subsequent treatment management. Malignant neoplasm of urinary bladder. Chemotherapy April 2024. PROCEDURE: 62 minutes following the intravenous administration of 22.3 mCi of fluorine 18 FDG, images from the base of the skull to the mid thighs were obtained using a combined PET/CT scanner with CT scan based attenuation correction. No oral contrast was administered. No intravenous contrast was administered. Transverse, coronal, sagittal, and volume reconstruction projections were obtained. The patient's blood glucose as determined by a finger stick, was 86 mg/dl immediately prior to injection. Total CT exam dose-length product 1190.13 mGy-cm * These CT images were obtained using dose optimization techniques as appropriate, variously including the following: Automated exposure control * Adjustment of mA and/or kV according to patient size (this includes techniques or standardized protocols for targeted exams where dose is matched to indication/reason for exam; i.e. extremities or head) * Use of iterative reconstruction technique COMPARISON: The report of a previous PET/CT scan performed [facility] dated 05/22/2024 is available, but the images from that study are not available for review. CT scan of the chest dated 01/23/[address] urogram dated 12/06/2023 are available for comparison. FINDINGS: (Slice numbers described in this report are numbered superiorly to inferiorly with slice #1 in the head) NECK AND VISUALIZED HEAD: There is diffusely increased FDG activity in the thyroid gland, and this is most intense in the right lobe which shows SUVmax 6.0, slice 54/311. There are no other foci of abnormal FDG activity in the neck or visualized head. All the other activity appears physiological. THORAX: There are no foci of abnormal FDG activity in the chest. No suspicious pulmonary nodules are visualized. Several micronodules less than 0.5 cm in size visualized on the diagnostic 01/23/2024 CT scan of the chest are not apparent on these nondiagnostic CT images. All of those would be much too small to be visualized on these FDG PET images. There is no pleural or pericardial fluid, or pneumothorax. There is no mediastinal, supraclavicular, or axillary lymphadenopathy. A right-sided chest port with internal jugular catheter terminating in the superior vena cava is noted. ABDOMEN AND PELVIS: There is right posterolateral bladder wall thickening which appears similar to that visualized on the 12/06/[address] scan. That study was performed with intravenous contrast and better visualizes the wall thickening which is not well delineated on these nondiagnostic CT images performed without intravenous contrast, but the bladder wall thickening displaces the FDG activity in the urinary bladder in this region and the thickening appears to be similar to 12/06/2023. There is only minimal FDG activity suggested within this thickening, but this is difficult to evaluate because of the intense physiological FDG activity in the urinary bladder. There is mild FDG activity throughout the gastrointestinal tract, without a suspicious focal component, likely physiological. There is diverticulosis without evidence of diverticulitis. The hollow viscera are otherwise unremarkable. A focus of FDG activity in liver Couinaud segment 3 along its inferior margin is present, showing SUVmax 4.7, slice 131/311. A subtle hypodensity measuring approximately 2.5 cm is suggested on these nondiagnostic CT images but is not well delineated. This FDG activity is difficult to localize and may be due to physiological activity in the immediately adjacent stomach. There are no other foci of abnormal FDG activity suggested in the liver which otherwise appears unremarkable. The gallbladder has been resected and there are metallic surgical clips in the gallbladder bed. The spleen is unremarkable. A right percutaneous nephrostomy tube is in place and the right kidney appears significantly smaller in size than the left, but hydronephrosis present in the right kidney on the 12/06/2023 CT urogram is no longer present. The left kidney is unremarkable. The adrenal glands and pancreas are unremarkable. Other than the previously described bladder wall thickening, the pelvic organs are unremarkable. There is no retroperitoneal, mesenteric, pelvic or inguinal lymphadenopathy. MUSCULOSKELETAL: There are no foci of abnormal FDG activity in the osseous structures. There are degenerative changes in the spine but no suspicious sclerotic or lytic lesions are visualized. VASCULAR: Vascular calcifications including coronary are noted. Reference SUVmax Levels: Mediastinal Blood Pool: 2.5, Slice 92/311 Liver: 3.5, Slice 133/3 level IMPRESSION: 1. Bladder wall thickening is noted with no definite abnormal FDG activity, but the latter is difficult to evaluate because of the intense physiological FDG activity in the bladder. 2. There is a subtle focus of FDG activity possibly a associated with a CT hypodensity in the left lobe, as described above. This is suspicious for a metastatic lesion in the liver, but this appearance may be due to the FDG uptake in the immediately adjacent stomach. Further characterization of this with MRI performed without and with intravenous contrast is recommended, if clinically indicated. 3. No additional abnormalities strongly suspicious for other metastatic or malignant lesions are noted. 4. A few small micronodules visualized in the lungs on the diagnostic 01/23/[address] scan are not visualized on these nondiagnostic CT images, and all of these are too small to be characterized on the FDG PET images. Further monitoring of these with diagnostic CT imaging is recommended. 5. Diffuse FDG activity in the thyroid gland is present, more prominently in the right lobe. A definite nodule is not visualized on the CT images. This is most likely due to autoimmune thyroid disease such as Terrence's thyroiditis or Graves' disease. Correlation with blood thyroid functions including TSH level and thyroid autoantibodies is recommended for initial follow-up. 6. Vascular calcifications including coronary. Collected: 12/12/23 Location: [facility] Received: 12/13/23 Diagnosis Bladder tumor, transurethral resection: -Invasive urothelial carcinoma, high-grade -Tumor invades muscularis propria. -Lymphatic vessel invasion is identified. Bladder, transurethral resection/biopsy Procedure: Transurethral resection Tumor site: Per operative note: right lateral wall Histologic type: Invasive urothelial carcinoma Histologic grade: High-grade Muscularis propria: Present Extent of invasion: Tumor invades muscularis propria. Lymphovascular invasion: Identified Date of Service: 12/06/23 EXAMINATION: CT ABDOMEN AND PELVIS WITHOUT AND WITH CONTRAST CLINICAL INFORMATION: Hematuria COMPARISON: Previous CT of the abdomen and pelvis September 2017 and renal ultrasound August 2023 TECHNIQUE: Noncontrast CT of the abdomen and pelvis is performed followed by split bolus contrast-enhanced images using 85 mL Omnipaque 350 contrast.? Postcontrast imaging is performed during the combined nephrogram and excretion phase. Sagittal and coronal reformatted images were obtained on the technologist's workstation for both the precontrast and postcontrast phases. This CT examination was performed using dose optimization techniques as appropriate, variously including the following: *Automated exposure control *Adjustment of mA and/or kV according to patient size (this includes techniques or standardized protocols for targeted exams where dose is matched to indication/reason for exam; i.e. extremities or head) *Use of iterative reconstruction technique DLP: 1223 mGy-cm FINDINGS: LUNG BASES: The visualized lung bases are unremarkable. LIVER, GALLBLADDER, AND BILIARY TREE: The liver is normal in size, shape, and attenuation. No focal hepatic lesion or biliary ductal dilatation is present. The gallbladder has been removed. PANCREAS: Unremarkable. SPLEEN: Unremarkable. ADRENAL GLANDS: Unremarkable. KIDNEYS AND URETERS: No renal stone or mass. There is moderate right hydronephrosis and down to the bladder. There is a delayed right nephrogram. There is no contrast seen in the right renal collecting system or ureter this is not optimally evaluated. The kidney is normal. No left hydronephrosis. The left renal collecting system and ureter are well opacified with excreted contrast in BLADDER: Large heterogeneous mass in the right side of the bladder involving the right lateral bladder wall, right UVJ region and posterior inferior base of the bladder extending toward the left UVJ region. Appearance is concerning for bladder neoplasm. Mass is irregular in shape and difficult to measure. There is stranding of the adjacent perivesicular fat. There are small right retroperitoneal lymph nodes. GASTROINTESTINAL TRACT: The small and large bowel are unremarkable. The appendix is unremarkable. ABDOMINAL WALL: No significant hernia is appreciated. LYMPH NODES: There are small bilateral retroperitoneal pelvic and lower abdominal retroperitoneal lymph nodes. Largest lymph node is a right external iliac lymph node measuring 6 mm in short axis axial image VASCULAR: Unremarkable. PELVIC VISCERA: Unremarkable. OSSEUS STRUCTURES: Degenerative changes of the spine. No fracture or bone lesion. CT/CT urogram IMPRESSION: Large heterogeneous mass in the right side of the bladder involving the right lateral bladder wall, right UVJ region and posterior inferior base of the bladder extending toward the left UVJ region. Appearance is suggestive of bladder neoplasm. There is stranding of the adjacent perivesicular fat and small retroperitoneal lymph nodes. There is moderate right hydronephrosis and delayed right nephrogram. There is no contrast seen in the right renal collecting system or ureter and this is not optimally evaluated. Assessment & Plan Assessment & Plan (1) Bladder cancer: Code(s): C67.9 - Malignant neoplasm of bladder, unspecified Category: Medical (2) Invasive carcinoma of urinary bladder: Code(s): C67.9 - Malignant neoplasm of bladder, unspecified Category: Medical (3) CKD stage 3b, GFR 30-44 ml/min: Code(s): N18.32 - Chronic kidney disease, stage 3b Category: Medical (4) Malignant neoplasm metastatic from bladder: Code(s): C67.9 - Malignant neoplasm of bladder, unspecified Category: Surgical (5) Hematuria: Code(s): R31.9 - Hematuria, unspecified Category: Medical Qualifiers: Hematuria type: gross Qualified Code(s): R31.0 - Gross hematuria (6) Hydronephrosis: Code(s): N13.30 - Unspecified hydronephrosis Category: Medical Plan He Follows with [facility] Right Neph tube change in 8- 10 weeks Orders: Orders AMB Urinalysis Automated Today Z13.9 - Encounter for screening, unspecified IR nephrostomy tube change 10 Weeks C67.9 - Malignant neoplasm of bladder, unspecified, N13.30 - Unspecified hydronephrosis Patient Instructions: The patient had an opportunity to ask questions regarding treatment plan. The patient expressed understanding and agreement with the above treatment plan. The patient is aware they should contact our office by phone for worsening of their current condition or the appearance of new symptoms. Compliance is encouraged with any medications and followup testing that is ordered. It is a privilege to be allowed the opportunity to participate in the urologic care of your patient. If you have any questions or concerns regarding treatment for the above conditions please do not hesitate to contact me. The office telephone contact is [phone]. This note is constructed in part using voice recognition software. While every effort has been made to ensure accuracy doctor of podiatry errors may have been included. Yours sincerely, Sangita Hopkins MD Coding Level of Care Code Est Pt Level 4 (46067) Diagnoses Bladder cancer C67.9 Invasive carcinoma of urinary bladder C67.9 CKD stage 3b, GFR 30-44 ml/min N18.32 Malignant neoplasm metastatic from bladder C67.9 Gross hematuria R31.0 Hematuria type: gross Hydronephrosis N13.30
== END 2024-09-23 15:16 | disposition home or self-care (01) ==
PROVIDERS: PCP Internal Medicine; Visit Provider Urology
DX: C67.9 Malignant neoplasm of bladder, unspecified (principal); N18.32 Chronic kidney disease, stage 3b; R31.0 Gross hematuria; N13.30 Unspecified hydronephrosis; Z13.9 Encounter for screening, unspecified
CPT/HCPCS: 99214

== ENCOUNTER 2024-09-27 14:25 | Outpatient (REF) | payer MEDICARE, OTHER, SELFPAY ==
[2024-09-27 14:45] LABS: MANUAL DIFF FLAG NO
[2024-09-27 14:58] LABS: Basophils Absolute Auto 0.1 X10*3/uL (0.0-0.2); Basophils Percent Auto 0.7 % (0-2); Eosinophils Absolute Auto 0.1 X10*3/uL (0.0-0.4); Eosinophils Percent Auto 1.2 % (0-4); Hematocrit 31.4 % (42.0-52.0); Hemoglobin 10.4 g/dl (14.0-18.0); Imm Gran Abs Auto 0.22 X10*3/uL (0.00-0.03); Imm Gran Pct Auto 3.3 % (0.0-0.4); Lymphocytes Absolute Auto 1.3 X10*3/uL (1.2-4.9); Lymphocytes Percent Auto 19.3 % (20-40); Mean Corpuscular HGB Conc 33.1 g/dl (31.0-36.0); Mean Corpuscular Hemoglobin 31.4 pg (27.0-33.0); Mean Corpuscular Volume 94.9 fL (80.0-98.0); Mean Platelet Volume 9.4 fL (9.4-12.4); Monocytes Absolute Auto 0.6 X10*3/uL (0.1-1.2); Monocytes Percent Auto 8.8 % (2-11); Neutrophils Absolute Auto 4.5 x10*3/uL (2.0-8.3); Neutrophils Percent Auto 66.7 % (45-73); Platelet Count 213 X10*3/uL (160-400); Red Blood Count 3.31 X10*6/uL (4.60-5.80); Red Cell Distribution Width 18.9 % (11.0-16.0); White Blood Count 6.7 X10*3/uL (4.8-10.8)
[2024-09-27 15:24] LABS: Albumin Level 3.9 g/dL (3.5-5.0); Anion Gap 13 (12-20); Aspartate Amino Transferase 43 U/L (5-37); Bilirubin Total 0.5 mg/dL (0.0-1.0); Blood Urea Nitrogen 32 mg/dL (9-16); Calcium 9.3 mg/dL (8.4-10.2); Carbon Dioxide 24 mmol/L (22-29); Chloride 108 mmol/L (96-108); Estimated Glomerular Filt Rate 33; Glucose Random 91 mg/dL (60-115); Potassium 4.8 mmol/L (3.3-5.1); Sodium 140 mmol/L (135-145); Total Protein 6.9 g/dL (6.5-8.0)
[2024-09-27 15:31] LABS: Alanine Aminotransferase 21 U/L (0-40); Alkaline Phosphatase 110 U/L (39-117)
[2024-09-27 15:40] LABS: Thyroid Stimulating Hormone 45.96 uIU/mL (0.32-4.0)
== END 2024-09-27 14:26 | disposition home or self-care (01) ==
LOC: HO.LAB 14:25
PROVIDERS: PCP Internal Medicine; Visit Provider Internal Medicine
DX: C67.9 Malignant neoplasm of bladder, unspecified (principal)
CPT/HCPCS: 36415; 80053; 84443; 85025

== ENCOUNTER 2024-09-30 09:08 | Outpatient (REF) | payer MEDICARE, OTHER, SELFPAY ==
[2024-09-30 10:23] LABS: Cortisol Random 13.1 ug/dL
--- OUTSIDE RECORDS SUMMARY | 2024-10-02 13:48 | XMS_ITS ---
Author Organization [facility] Address [address] [place] [address] Care Team Providers Care Storage Center Manager Name Role Phone So MCALLISTER, Primary Care Provider Unavaila Jose Doty Unavailable [phone] Eamon MCALLISTER, Zamzam Lindsay Unavailable REASON FOR VISIT colon screening Encounters Encounter Location Date Provider Diagnosis [facility] [address]patient [address] [place], [place] [id number] 06/03/2024 Jose Arevalo PLAN OF TREATMENT No Information
--- OUTSIDE RECORDS SUMMARY | 2024-10-02 13:48 | XMS_ITS ---
Author Organization [facility] Address [address] [place] [address] Care Team Providers Care Weatherization Crew Leader Name Role Phone So MCALLISTER, Primary Care Provider Unavaila Jose Doty Unavailable [phone] Eamon MCALLISTER, Zamzam Unavailable Unavailable REASON FOR VISIT colonoscopy Encounters Encounter Location Date Provider Diagnosis [facility] [address] [place] [address] 05/27/2024 Jose Arevalo PLAN OF TREATMENT No Information
--- OUTSIDE RECORDS SUMMARY | 2024-10-02 13:48 | XMS_ITS ---
Author Organization [facility] Address [address] [place] [address] Care Team Providers Care Venture Capital Analyst Name Role Phone So MCALLISTER, Primary Care Provider Unavaila Jose Doty Unavailable [phone] Eamon MCALLISTER, Zamzam Unavailable Unavailable REASON FOR VISIT CANCEL PROCEDURE Encounters Encounter Location Date Provider Diagnosis [facility] [address] [place] [address] 05/30/2024 Jose Arevalo PLAN OF TREATMENT No Information
--- OUTSIDE RECORDS SUMMARY | 2024-10-02 13:48 | XMS_ITS | Patient Health Record ---
Author Organization [facility] Address [address] [place] [address] Care Team Providers Care Exercise Physiologist Name Role Phone So MCALLISTER, Primary Care Provider Unavaila Jose Doty Unavailable [phone] Eamon MCALLISTER, Zamzam Unavailable Unavailable REASON FOR REFERRAL No Information MEDICATIONS Medication SIG (Take, Route, Frequency, Duration) Notes Start Date End Date Status Atorvastatin Calcium 20 MG 1 tablet Oral ly Once a day Active Vitamin D3 1000 UNIT 1 tablet Orally Onc e a day Active IMMUNIZATIONS Vaccine Route Administration Date Status Comme nts Influenza Unknown 09/05/2018 Administered SOCIAL HISTORY Tobacco Use: Social History Observation Description Date Details (start date - stop date) Former Smoker NA - NA Sex Assigned At : Social History Observation Description Sex Assigned At Unknown Tobacco Use/Smoking Question Answer Notes Patient is a former smoker How long has it been since you last smoked? 1-5 years Alcohol Screen Question Answer Notes Did you have a drink contain ing alcohol in the past year? Yes How often did you have a dri nk containing alcohol in the past year? Monthly or less (1 point) How many drinks did you have on a typical day when you were drinking in the past year? 1 or 2 drinks (0 point) How often did you have 6 or more drinks on one occasion in the past year? Never (0 point) Points 1 Interpretation Negative PROBLEMS Problem Type ICD Code Onset Dates Problem Status W/U Status Risk SNOMED Code Notes Problem Epigastric abdominal pain (R10.13) Active confirmed 87707583 Problem Encounter for screening for malignant neoplasm of colon (Z12.11) Active confirmed 862715173 Problem Preprocedural examination (Z01.818) Active confirmed [id number] Problem Colon cancer screening (Z12.11) Active confirmed Colon cancer screening (480945124) Encounters Encounter Location Date Provider Diagnosis [facility] [place] [facility] [address], [place] [id number] 06/03/2024 Jose Arevalo [facility] [address] [place] [phone] 04/23/2024 Jose Arevalo Colon cancer screening Z12.11 [facility] [address] [place] [phone] 05/27/2024 Jose Irina [facility] [address] [place] [phone] 05/30/2024 Jose Arevalo ASSESSMENTS Encounter Date Diagnosis Assessment Notes Treatment Notes Treatment Clinical Notes 04/23/2024 Colon cancer screening (ICD-10 - Z12.11) PLAN OF TREATMENT Future Test Test Name Order Date UPPER GI ENDOSCOPY 08/23/2017 COLONOSCOPY 04/10/2019 COLONOSCOPY 04/26/2024 Insurance Providers Payer Name Payer Address Payer Phone Subscriber Number Group Number Insured Name Patient Relationship to Insured Coverage Start Date Coverage End Date MEDICARE OF [place] [address] [place] [address] [phone] [id number] JOSE CUBA Self - patient is the insured [employer] [address] [place] [address] [id number] JOSE CUBA Self - patient is the insured MEDICAL (GENERAL) HISTORY Medical History History ICD Code Denies [place],DM,CVA,Lung disease,renal dise ase Hyperlipidemia Screening colonoscopy in Mar with Dr. Johansen revealed only hyperplastic polyps. EGD in 08/2017-small HH, normal duodenal and gastric biopsies Surgical History Surgery Date(Month/Year) Lap cholecystectomy--acalculous cholecys titis-Dr. Knutson 05/2017 Finger- infection drained 1969
[2024-10-03 21:04] LABS: Adrenocorticotropic Hormone 6 pg/mL (6-50)
== END 2024-09-30 09:09 | disposition home or self-care (01) ==
LOC: HO.LAB 09:08
PROVIDERS: PCP Internal Medicine; Visit Provider Internal Medicine
DX: C67.9 Malignant neoplasm of bladder, unspecified (principal)
CPT/HCPCS: 36415; 82024; 82533

== ENCOUNTER 2024-10-03 07:49 | Outpatient (AMB) | payer MEDICARE, OTHER, SELFPAY ==
[2024-10-03 07:50] VITALS: BP 138/100; PULSE 90; BMI 33.8
--- NOTE | 2024-10-03 07:50 | A.OFFVIS_ITS ---
Vital Signs 10/03/24 07:50 Height 6 ft 2 in Weight 263 lb 7.238 oz BMI 33.8 BP 138/100 H Blood Pressure Location Lt brachial Position Sitting Pulse 90 Pulse Source Pulse Oximeter Intake Visit Reasons: adrenal insufficiency Intake Note: Patient present today for adrenal insufficiency office visit. 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 With regards to his bladder cancer was diagnosed in November 2023, underwent TURBT on 12/12/2023 . Biopsy revealed invasive urothelial carcinoma, high-grade, tumor invades muscularis propria, lymphatic vessel invasion is identified. He started neoadjuvant chemotherapy with cisplatin 70 mg/m2/gemcitabine 1000mg/m2 D 1 and 8 q 21 days from 02/27/2024 until 04/2024. He was diagnosed with metastatic disease in 06/11/2024 based on PET-CT. Patient underwent ultrasound-guided biopsy of left gluteal mass which revealed metastatic poorly differentiated carcinoma. He also underwent excision of left axillary mass on 05/31/2024, pathology revealed poorly differentiated carcinoma compatible with metastatic urothelial carcinoma. Patient started systemic therapy with Enfortumab vedotin with pembrolizumab administered every 21 days in 06/11/2024. He is continuing on this as of 10/03/24 Hypothyroidism His labs when showed normal TSH from 06/10/2024 with subsequently developing low TSH levels on 06/28/2024 at 0.21. Had further suppression of TSH with labs going down to 0.02 on 07/19/2024. Free T4 level was normal. He subsequently developed elevated TSH of 18.86 on 08/16/2024 and most recently blood work done on 08/19/2024 showed TSH of 29.74.. This pattern is consistent with thyroiditis seen in the setting of immune checkpoint inhibitor therapies which are known to cause endocrinopathies. In terms of thyroid dysfunction, PD 1 inhibitor such as pembrolizumab are the ones most commonly involve in causing thyroid dysfunction. Generally immune checkpoint inhibitor therapy does not need to be interrupted or discontinued. And this pattern is very commonly seen were patients develop thyroiditis with low TSH from 1-6 weeks post starting therapy subsequently followed by high TSH around 8 weeks of therapy. No compressive symptoms. No family history of thyroid disease or thyroid cancer. He denies biotin use. Interval history Last visit 08/19/2024: Started on levothyroxine 50 mcg daily. 08/11/2024: TSH 29.74 08/24/2024 TSH 51.52 08/26/2024: TSH 30.21 09/06/2024: TSH 46.98, Oncology team increased levothyroxine to 75 mcg daily 09/13/2024 TSH 56.20, free T4 0.61 09/23/2024: TSH 47.81, free T4 0.58 09/27/2024: TSH 45.96, TPO antibodies elevated at 85 Bowel movements are regular, no temperature intolerance , weight went down to 254 lbs in Aug 2024 from 260 lbs in Jul 2024 and npw back up at 263 lbs in Sep 2024. No skin or hair changes. 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 Denies any steroid use after that. Patient denied any lightheadeness, dizziness ,vomiting at the time of these labs, only mild nausea and some weight loss noted . 09/17/24 cortisol came back as <1, ACTH 7 , normal sodium and potassium , 09/18/24: Started hydrocortisone 20 mg in the morning and 10 mg in the afternoon at 1 pm 09/23/24: renin 0.71 , aldosterone pending still Currently as of 10/03/24 : denied any lightheadeness, dizziness ,vomiting at the time of these labs, only mild nausea , mild fatigue , denies any headaches or visual symptoms such as diplopia. Bowel movements are regular. Physical exam General: sitting comfortably in no acute distress HEENT: normocephalic/atraumatic, moist oral mucosa Neck: supple, symmetrical, no thyromegaly Cardiac: normal heart sounds Pulm: normal breath sounds B/L, no added breath sounds Abd: not distended, no tenderness Extremities: no edema, no signs of myxedema Laboratory Tests 06/10/24 06/28/24 07/05/24 09:29 15:23 13:25 TSH 1.31 0.21 L 0.04 L Free T4 Total T3 07/08/24 07/19/24 07/26/24 10:22 13:23 14:41 TSH 0.02 L 0.02 L 0.25 L Free T4 1.41 Total T3 129 08/16/24 08/19/24 13:33 10:40 TSH 18.86 H 29.74 H Free T4 Total T3 Laboratory Tests 06/10/24 06/28/24 07/05/24 09:29 15:23 13:25 Sodium Potassium Creatinine Estimated GFR Renin TSH 1.31 0.21 L 0.04 L Free T4 Total T3 DHEA Sulfate Random Cortisol ACTH 07/08/24 07/19/24 07/26/24 10:22 13:23 14:41 Sodium Potassium Creatinine Estimated GFR Renin TSH 0.02 L 0.02 L 0.25 L Free T4 1.41 Total T3 129 DHEA Sulfate Random Cortisol ACTH 08/16/24 08/19/24 08/24/24 13:33 10:40 08:02 Sodium Potassium Creatinine Estimated GFR Renin TSH 18.86 H 29.74 H 51.52 H Free T4 Total T3 DHEA Sulfate Random Cortisol ACTH 08/26/24 09/06/24 09/13/24 11:22 12:53 12:10 Sodium Potassium Creatinine Estimated GFR Renin TSH 30.21 H 46.98 H 56.20 H Free T4 0.61 L Total T3 DHEA Sulfate Random Cortisol ACTH 09/17/24 09/23/24 09/27/24 07:00 12:50 14:42 Sodium 142 140 Potassium 4.4 4.8 Creatinine 2.08 H 2.03 H Estimated GFR 32 33 Renin 0.71 TSH 47.81 H 45.96 H Free T4 0.58 L Total T3 DHEA Sulfate 49 Random Cortisol < 1.0 ACTH 7 09/30/24 09:25 Sodium Potassium Creatinine Estimated GFR Renin TSH Free T4 Total T3 DHEA Sulfate Random Cortisol 13.1 ACTH Laboratory Tests 09/23/24 12:50 Thyroid Peroxidase Ab 86 (H) [facility] Medical History (Updated 10/03/24 @ 09:07 by Dilcia Brady MD) History of immune checkpoint inhibitor therapy Hypophysitis Adrenal insufficiency Hypothyroidism Port-A-Cath in place (02/16/24) History of blood transfusion Bladder cancer Obesity (BMI 30-39.9) Pure hypercholesterolemia Hyperlipemia Carpal tunnel syndrome Surgical History Mass of left axilla (05/31/24) Hx of colonoscopy Hx of cystoscopy History of surgery History of hand surgery History of ankle surgery History of cholecystectomy Family History Father Multiple sclerosis, primary progressive Mother No problems noted. 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 His labs when showed normal TSH from 06/10/2024 with subsequently developing low TSH levels on 06/28/2024 at 0.21. Had further suppression of TSH with labs going down to 0.02 on 07/19/2024. Free T4 level was normal. He subsequently developed elevated TSH of 18.86 on 08/16/2024 and most recently blood work done on 08/19/2024 showed TSH of 29.74.. This pattern is consistent with thyroiditis seen in the setting of immune checkpoint inhibitor therapies which are known to cause endocrinopathies. In terms of thyroid dysfunction, PD 1 inhibitor such as pembrolizumab are the ones most commonly involve in causing thyroid dysfunction. Generally immune checkpoint inhibitor therapy does not need to be interrupted or discontinued. And this pattern is very commonly seen were patients develop thyroiditis with low TSH from 1-6 weeks post starting therapy subsequently followed by high TSH around 8 weeks of therapy. He has a immune checkpoint inhibitor induced hypothyroidism. Started on levothyroxine 50 mcg daily on 08/19/2024 which was increased to 75 mcg daily by the Oncology team on 09/06/2024.. 09/23/2024: TSH 47.81, free T4 0.58, 09/27/2024: TSH 45.96, labs continue to show elevated TSH. However we will give it 6 weeks from his last dose change which would be around Anny, I have asked him to repeat a set thyroid labs with TSH and free T4 after and we will plan to titrate his dose of further at that time needed. Plan: -continue levothyroxine 75 mcg daily. -ordered TSH, free T4 to be done on 10/17 or 10/18/2024 -follow up in 2 weeks (2) Adrenal insufficiency: Code(s): E27.40 - Unspecified adrenocortical insufficiency Category: Medical Plan: 63-year-old male with metastatic bladder cancer on immunotherapy with pembrolizumab started 06/11/2024 every 21 days. He receives dexamethasone with his regimen. 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 Denies any steroid use after that. Patient denied any lightheadeness, dizziness ,vomiting at the time of these labs, only mild nausea and some weight loss noted . 09/17/24 cortisol came back as <1, ACTH 7 , normal sodium and potassium , labs consistent with secondary adrenal insufficiency. 09/18/24: Started hydrocortisone 20 mg in the morning and 10 mg in the afternoon at 1 pm I have ordered lab work to test test other [id number] axes including prolactin, FSH, LH, testosterone, growth hormone, IGF-1 levels to check if this is hypophysitis versus isolated adrenal corticotropin hormone deficiency. Isolated corticotroph cells damage has been seen with pembrolizumab. Most patients with PD-1 inhibitors did not show any structural changes in the pituitary, those are more common with CTLA 4 inhibitors. At this point given he is not complaining of any vision changes or headaches I am going to not order a pituitary MRI as it does not affect clinical management. Plan: -reduce hydrocortisone to 20 mg in the morning and 5 mg in the afternoon -ordered prolactin, FSH, LH, testosterone, growth hormone, IGF-1 levels to assess the rest of the pituitary panel -follow up in 2 weeks -greater than 50% of the visit was spent explained to the patient how to manage adrenal insufficiency including sick day rule, stress dose requirement for procedures/surgeries, importance of having medical alert bracelet/neck less, and management with home IM hydrocortisone administration in case of repeated vomiting. A large part of the visit was also spent coordinating patient's care with the oncology team, going over Oncology notes in managing complex immune checkpoint inhibitor induced endocrinopathies. (3) Hypophysitis: Code(s): E23.6 - Other disorders of pituitary gland Category: Medical Plan: See above (4) History of immune checkpoint inhibitor therapy: Code(s): Z92.26 - Personal history of immune checkpoint inhibitor therapy Category: Medical Plan: see above Plan I spent 60 minutes in reviewing the record, seeing the patient and documenting in the medical record. Orders: Orders Follicle Stimulating Hormone Today E03.2 - Hypothyroidism due to medicaments and other exogenous substances, E23.6 - Other disorders of pituitary gland, E27.40 - Unspecified adrenocortical insufficiency Lutenizing Hormone Today E03.2 - Hypothyroidism due to medicaments and other exogenous substances, E23.6 - Other disorders of pituitary gland, E27.40 - Unspecified adrenocortical insufficiency Testosterone, Free/Total Today E03.2 - Hypothyroidism due to medicaments and other exogenous substances, E23.6 - Other disorders of pituitary gland, E27.40 - Unspecified adrenocortical insufficiency Sex Hormone Binding Globulin Today E03.2 - Hypothyroidism due to medicaments and other exogenous substances, E23.6 - Other disorders of pituitary gland, E27.40 - Unspecified adrenocortical insufficiency IGF-1 (Somatomedin C) Today E03.2 - Hypothyroidism due to medicaments and other exogenous substances, E23.6 - Other disorders of pituitary gland, E27.40 - Unspecified adrenocortical insufficiency Prolactin Today E03.2 - Hypothyroidism due to medicaments and other exogenous substances, E23.6 - Other disorders of pituitary gland, E27.40 - Unspecified adrenocortical insufficiency Basic Metabolic Panel Fasting Today E03.2 - Hypothyroidism due to medicaments and other exogenous substances, E23.6 - Other disorders of pituitary gland, E27.40 - Unspecified adrenocortical insufficiency Human Growth Hormone Today E03.2 - Hypothyroidism due to medicaments and other exogenous substances, E23.6 - Other disorders of pituitary gland, E27.40 - Unspecified adrenocortical insufficiency Medications: New syringe with needle (BD Luer-Shiv Syringe) As directed to be used to inject hydrocortisone in case of emergency 2 ea 0RF needle (disp) 19 G As directed to draw hydrocortisone in case of emergency 100 ea 0RF hydrocortisone sod succ (PF) (Solu-Cortef Act-O-Vial (PF)) Inject 2 ml intramuscularly in case of emergency 100 mg (2 mL) IM DAILY 2 mL 1RF Changed From hydrocortisone Take 20 mg in a.m. and 10 mg in afternoon 10 mg PO TID 90 tabs 3RF To hydrocortisone orally 2 times a day; Take 20 mg in a.m. and 5 mg in afternoon at 2 pm 90 tabs 6RF Patient Instructions: Reduce hydrocortisone to 20 mg (2 tablets) in the morning and 5 mg (half tablet ) in the afternoon at 2 pm Continue levothyroxine 75 mcg daily Do blood work tmw AM fasting Do another set of thyroid blood work after Anny around 10/17 or ADRENAL SICK DAY RULE Minor ailments can affect anyone with a steroid-dependent adrenal condition very differently. Things like vomiting, diarrhea, colds and flu could cause an adrenal crisis. It's important that you spot the early symptoms of a bug or cold and adjust your steroid replacement medication. The Sick Day Rules are here to help you. If you're feeling ill or injured follow these rules to keep safe and reduce the chances of an adrenal crisis.?Make sure that you keep taking your medication whatever is going on. An adrenal crisis is serious, uncomfortable and can be life-threatening. What to do Double?your daily hydrocortisone, prednisone or prednisolone dose if: ? You have a temperature of 100.4 degrees or above. ? You get a bad cold, flu, diarrhea or other infection that makes you feel poorly or weak. ? You break a bone or suffer from any similar significant injury. For how long? ? Double your dose for 48-72 hours. If you are feeling better, go back to your usual dose. ? If you don't feel better after 48hrs, continue to double your does and speak to your doctor for more advice. ? If you are prescribed antibiotics, continue to double your dose until you finish the course or feel completely back to normal. I can't keep my medication down 1. If you vomit and bring up your medication within 30 minutes of taking it, take a double dose again immediately. 2. If you bring up the second dose,?inject yourself with 100mg of hydrocortisone?(if this has been prescribed to you) and seek medical advice immediately. 3. If you carry on vomiting, you will become dehydrated - Cortisol is important for stressful situations. Please NEVER stop your cortisol replacement without first speaking with a doctor. - If you have a mild illness such as a cold/fever/infection, increase your Hydrocortisone dose to 20 mg every morning upon awakening (7 am) and 10 mg every evening (5 pm) for 48-72 hours or longer if you continue to have fevers or if the illness is not resolving. - Persistent nausea/vomiting (to the point of being unable to keep fluids down) will require intravenous (IV) Hydrocortisone. If you have nausea and vomiting and cannot keep your cortisol dose down without vomiting, please seek medical attention at a local Emergency Department. - Obtain and wear a medical alert bracelet that indicates adrenal insufficiency at all times. If you have any procedure or surgery coming up please inform me before hand, as you will need high dose IV hydrocortisone Coding Level of Care Code Est Pt Level 5 (60525) Diagnoses Hypothyroidism due to medication E03.2 Hypothyroidism type: due to medication Adrenal insufficiency E27.40 Hypophysitis E23.6 History of immune checkpoint inhibitor therapy Z92.26 Time Spent (min) 60
--- OUTSIDE RECORDS SUMMARY | 2024-10-03 07:52 | XMS_ITS ---
Author Organization [facility] Address [address] [place] [address] Care Team Providers Care Scientific Diver Name Role Phone So MCALLISTER, Primary Care Provider Unavaila Jose Doty Unavailable [phone] Eamon MCALLISTER, Zamzam Unavailable Unavailable REASON FOR VISIT CANCEL PROCEDURE Encounters Encounter Location Date Provider Diagnosis [facility] [address] [place] [address] 05/30/2024 Jose Arevalo PLAN OF TREATMENT No Information
--- OUTSIDE RECORDS SUMMARY | 2024-10-03 07:52 | XMS_ITS | Patient Health Record ---
Author Organization [facility] Address [address] [place] [address] Care Team Providers Care Armored Car Guard And Driver Name Role Phone So MCALLISTER, Primary Care Provider Unavaila yaquelin Arevalo Jose Unavailable [phone] Eamon MCALLISTER, Zamzam Unavailable Unavailable REASON FOR [...] Problem Epigastric abdominal pain (R10.13) Active confirmed [id number] Problem Encounter for screening for malignant neoplasm of colon (Z12.11) Active confirmed 721552199 Problem Preprocedural examination (Z01.818) Active confirmed [id number] Problem Colon cancer screening (Z12.11) Active confirmed Colon cancer screening (821618938) Encounters Encounter Location Date Provider Diagnosis [facility] [place] Outpatient [address], [place] [phone] 06/03/2024 Jose Arevalo [facility] [address] [place] [phone] 04/23/2024 Jose Arevalo Colon cancer screening Z12.11 [facility] [address] [place] [phone] 05/27/2024 Jose Irina [facility] [address] [place] [phone] 05/30/2024 Jose Arevalo ASSESSMENTS Encounter Date Diagnosis [...] Date MEDICARE OF [place] [address] [place] [address] [phone] [id number] OJSE CUBA Self - patient is the insured [employer] [address] [place] [address] [id number] JOSE CUBA Self - patient is the insured MEDICAL (GENERAL) HISTORY Medical History History ICD Code Denies [place],DM,CVA,Lung disease,renal dise ase Hyperlipidemia Screening colonoscopy in Mar with Dr. Johansen revealed only hyperplastic polyps. EGD in 08/2017-small HH, normal duodenal and gastric biopsies Surgical History Surgery Date(Month/Year) Lap cholecystectomy--acalculous cholecys titis-Dr. Knutson 05/2017 Finger- infection drained 1969
--- OUTSIDE RECORDS SUMMARY | 2024-10-03 07:52 | XMS_ITS ---
Author Organization [facility] Address [address] [place] [address] Care Team Providers Care Equal Opportunity Assistant Name Role Phone So MCALLISTER, Primary Care Provider Unavaila Jose Doty Unavailable [phone] Eamon MCALLISTER, Zamzam Lindsay Unavailable REASON FOR VISIT colon screening Encounters Encounter Location Date Provider Diagnosis [facility] [place] Outpatient [address], [place] [phone] 06/03/2024 Jose Arevalo PLAN OF TREATMENT No Information
--- OUTSIDE RECORDS SUMMARY | 2024-10-03 07:52 | XMS_ITS ---
Author Organization [facility] Address [address] [place] [address] Care Team Providers Care Psychiatry Resident Name Role Phone So MCALLISTER, Primary Care Provider Unavaila Jose Doty Unavailable [phone] Eamon MCALLISTER, Zamzam Unavailable Unavailable REASON FOR VISIT colonoscopy Encounters Encounter Location Date Provider Diagnosis [facility] [address] [place] [address] 05/27/2024 Jose Arevalo PLAN OF TREATMENT No Information
== END 2024-10-03 08:54 | disposition home or self-care (01) ==
PROVIDERS: PCP Internal Medicine; Visit Provider Student in an Organized Health Care Education/Training Program
DX: E27.40 Unspecified adrenocortical insufficiency (principal); E23.6 Other disorders of pituitary gland; E03.2 Hypothyroidism due to medicaments and other exogenous substances; Z92.26 Personal history of immune checkpoint inhibitor therapy
CPT/HCPCS: 99215

== ENCOUNTER → 2024-10-03 07:49 | Outpatient (BNVA) | payer MEDICARE, OTHER, SELFPAY | PROVIDERS: PCP Internal Medicine; Visit Provider Student in an Organized Health Care Education/Training Program | DX: N18.32 Chronic kidney disease, stage 3b (principal); C67.9 Malignant neoplasm of bladder, unspecified; E03.2 Hypothyroidism due to medicaments and other exogenous substances; E27.40 Unspecified adrenocortical insufficiency; E23.6 Other disorders of pituitary gland; Z92.26 Personal history of immune checkpoint inhibitor therapy | CPT/HCPCS: 99212 ==

== ENCOUNTER 2024-10-03 09:05 | Outpatient (AMB) | payer MEDICARE, OTHER, SELFPAY ==
[2024-10-03 09:08] VITALS: BP 130/90; PULSE 90; O2SAT 98; BMI 33.8
--- NOTE | 2024-10-03 09:08 | HO.NEPHOV ---
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 and 5 mg in afternoon at 2 pm hydrocortisone sod succ (PF) (Solu-Cortef Act-O-Vial (PF)) 100 mg (2 mL) IM DAILY levothyroxine 75 mcg PO DAILY needle (disp) 19 G As directed to draw hydrocortisone in case of emergency omeprazole magnesium (Prilosec OTC) 20 mg PO DAILY ondansetron 8 mg PO Q8H PRN syringe with needle (BD Luer-Shiv Syringe) As directed to be used to inject hydrocortisone in case of emergency HPI Comments Details: 63 y/o male with a medical history of bladder cancer (dx Oct 2023, s/p TURBT Nov 2023, s/p neoadjuvant chemotherapy, right nephrostomy tube placed January 2024, last tube change 05/23/24. plan for radical cystectomy with ileal loop scheduled for Jul 2024 delayed due to metastases). Unfortunately, PET-CT at [facility] showed multiple subcutaneous and intramuscular nodules with FDG uptake, left axilla and left gluteal region- biopsies revealed metastatic poorly differentiated carcinoma. He is on enfortumab vedotin with pembrolizumab therapy every 21 days since 06/11/24, and toelrating well. Followed by [facility] [facility] Hematology Dr Moon Other medical history: neuropathy, carpal tunnel, hypercholesterolemia, osteoarthritis. Right nephrostomy tube draining well per patient. Referred to nephrology for management of CKD creatinine trend: 09/16/19 1.13 10/27/21 1.41 12/29/21 1.10 09/30/23 1.38 11/29/23 1.47 01/16/24 1.48 02/02/24 1.35 03/04/24 1.43 03/16/24 1.59 - gradually increasing since then 08/06/24 2.10 08/16/24 1.93 08/24/24 2.97 09/06/24 1.83 09/13/24 2.15 09/27/24 2.03 GFR 33 on 09/27 potassium normal TSH levels elevated, seeing endocrinology for management and taking oral levothyroxine chronic normocytic anemia since December 2023 Imagin07/30/24 PET shows right kidney appears significantly smaller in size than the left, but hydronephrosis present in the right kidney on the 12/06/2023 CT urogram is no longer present. The left kidney is unremarkable. Renal US 01/17/24 shows moderate right-sided hydronephrosis, similar to prior studies. *Received cisplatin therapy February through April 2024 taking amlodipine 2.5mg daily for blood pressure control- had tachycardia last visit so reduced dose from 5 to 2.5mg, vitals stable today denies shortness of breath chest pain abdominal pain- some constipation but states it is minimal no urinary symptoms no back pain no swelling in legs states nephrostomy drains regularly only takes tylenol- no NSAIDs hydration- he is working on this no salt added to food family history: nothing to speak of, denies family hx of kidney disease. [facility] Medical History (Updated 10/03/24 @ 09:07 by Dilcia Brady MD) History of immune checkpoint inhibitor therapy Hypophysitis Adrenal insufficiency Hypothyroidism Port-A-Cath in place (02/16/24) History of blood transfusion Bladder cancer Obesity (BMI 30-39.9) Pure hypercholesterolemia Hyperlipemia Carpal tunnel syndrome Surgical History Mass of left axilla (05/31/24) Hx of colonoscopy Hx of cystoscopy History of surgery History of hand surgery History of ankle surgery History of cholecystectomy Family History Father Multiple sclerosis, primary progressive Mother No problems noted. 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 Current occupational exposures/hazards: No Cognitive needs: No Hearing needs: No Vision needs: Yes Review of Systems Const Reports fatigue and Denies headache(s) ENT Denies headache(s) Card Denies dyspnea Resp Denies dyspnea GI Denies abdominal pain, Denies constipation and Denies diarrhea Denies hematuria, Denies oliguria, Denies dysuria, Denies flank pain, Denies urinary frequency and Denies urinary incontinence Musc Denies back pain, Denies arthralgias and Denies muscle cramps Skin/Breast Denies rash Neuro Denies headache(s) Endo Reports fatigue Physical Exam Vital Signs: Last Vital Signs Pulse 90 10/03/24 09:08 BP 130/90 H 10/03/24 09:08 Pulse Ox 98 10/03/24 09:08 Oxygen Delivery Method Room Air 10/03/24 09:08 BMI result Body Mass Index 33.8 Const General: no acute distress Resp Effort & Inspection: normal respiratory effort and able to speak in complete sentences Auscultation: clear to auscultation bilaterally Cardio Jugular venous distension: no JVD Rate: regular rate and tachycardic Rhythm: regular rhythm Heart sounds: S1 normal heart sound present, S2 normal heart sound present and no murmurs GI Palpation (GI): Soft to palpation and nontender General: Yes no CVA tenderness Back/Spine/Pelvis Back: no CVA tenderness Skin Lesions: no lesions Rashes: no rashes Extrem General: No no pedal edema and No edema Results Reviewed Nephrology Results: Hgb 10.4 g/dl (14.0-18.0) L 09/27/24 WBC 6.7 X10*3/uL (4.8-10.8) 09/27/24 Plt Count 213 X10*3/uL (160-400) 09/27/24 Sodium 140 mmol/L (135-145) 12/06/24 Potassium 4.8 mmol/L (3.3-5.1) 09/27/24 Chloride 108 mmol/L (96-108) 09/27/24 Carbon Dioxide 24 mmol/L (22-29) 09/27/24 BUN 32 mg/dL (9-16) H 09/27/24 Creatinine 2.03 mg/dL (0.5-1.4) H 09/27/24 Calcium 9.3 mg/dL (8.4-10.2) 09/27/24 Urine Protein 30 (1+) mg/dL (Neg-Trace) H 09/02/24 Assessment & Plan Assessment & Plan (1) CKD stage 3b, GFR 30-44 ml/min: Code(s): N18.32 - Chronic kidney disease, stage 3b Category: Medical (2) Malignant neoplasm metastatic from bladder: Code(s): C67.9 - Malignant neoplasm of bladder, unspecified Category: Surgical Plan Patient had GORDON on CKD, likely tubular injury from cisplatin use as well as hydronephrosis from malignancy creatinine remains fairly stable; will get renal ultrasound to ensure no ongoing obstruction to explain lack of improvement with creatinine levels likely patient's new baseline renal function repeat UA bland without blood/protein so glomerular causes less likely He will continue to work on adequate daily hydration He continues to avoid salt, NSAIDs He continues to work on healthy diet, exercise He will follow up in [address] Figueroa, he will get lab work prior to next appointment Orders: Orders Protein Creatinine Ratio, Ur 3 Months C67.9 - Malignant neoplasm of bladder, unspecified, N18.32 - Chronic kidney disease, stage 3b US renal BI Today C67.9 - Malignant neoplasm of bladder, unspecified, N18.32 - Chronic kidney disease, stage 3b Basic Metabolic Panel 3 Months N18.30 - Chronic kidney disease, stage 3 unspecified UA w Microscopic 3 Months C67.9 - Malignant neoplasm of bladder, unspecified, N18.32 - Chronic kidney disease, stage 3b Coding Level of Care Code Est Pt Level 4 (91782) Diagnoses CKD stage 3b, GFR 30-44 ml/min N18.32 Malignant neoplasm metastatic from bladder C67.9 Time Spent (min) 30 Comment times spent assessing, counseling, documentation, chart review: 30 minutes.
== END 2024-10-03 09:40 | disposition home or self-care (01) ==
PROVIDERS: PCP Internal Medicine; Visit Provider Nurse Practitioner Family
DX: N18.32 Chronic kidney disease, stage 3b (principal); C67.9 Malignant neoplasm of bladder, unspecified
CPT/HCPCS: 99214

== ENCOUNTER 2024-10-04 07:04 | Outpatient (REF) | payer MEDICARE, OTHER, SELFPAY ==
--- OUTSIDE RECORDS SUMMARY | 2024-10-04 07:06 | XMS_ITS ---
Author Organization [facility] Address [address] [place] [address] Care Team Providers Care Other Spatial Scientist Name Role Phone So MCALLISTER, Primary Care Provider Unavaila Jose Doty Unavailable [phone] Eamon MCALLISTER, Zamzam Lindsay Unavailable REASON FOR VISIT colon screening Encounters Encounter Location Date Provider Diagnosis [facility] Out[address] [place], [place] [id number] 06/03/2024 Jose Arevalo PLAN OF TREATMENT No Information
--- OUTSIDE RECORDS SUMMARY | 2024-10-04 07:07 | XMS_ITS | Patient Health Record ---
Author Organization [facility] Address [address] [place] [address] Care Team Providers Care Senior Information Developer Name Role Phone So MCALLISTER, Primary Care Provider Unavaila Jose Doty Unavailable [phone] Eamon MCALLISTER, Zamzam Unavailable Unavailable REASON FOR [...] Problem Epigastric abdominal pain (R10.13) Active confirmed [id number] Problem Encounter for screening for malignant neoplasm of colon (Z12.11) Active confirmed [id number] Problem Preprocedural examination (Z01.818) Active confirmed [id number] Problem Colon cancer screening (Z12.11) Active confirmed Colon cancer screening ([id number]) Encounters Encounter Location Date Provider Diagnosis [facility] Outpatient [address] [place], [place] [id number] 06/03/2024 Jose Arevalo [facility] [address] [place] [phone] 04/23/2024 Jose Arevalo Colon cancer screening Z12.11 [facility] [address] [place] [phone] 05/27/2024 Jose Irina [facility] [address] [place] [phone] 05/30/2024 Jose Arevalo ASSESSMENTS Encounter Date Diagnosis [...] Date MEDICARE OF [place] [address] [place] [address] [phone] [id number] JOSE CUBA Self - patient is the insured [employer] [address] [place] [address] [id number] JOSE CUBA Self - patient is the insured MEDICAL (GENERAL) HISTORY Medical History History ICD Code Denies CT,DM,CVA,Lung disease,renal dise ase Hyperlipidemia Screening colonoscopy in Mar with Dr. Johansen revealed only hyperplastic polyps. EGD in 08/2017-small HH, normal duodenal and gastric biopsies Surgical History Surgery Date(Month/Year) Lap cholecystectomy--acalculous cholecys titis-Dr. Knutson 05/2017 Finger- infection drained 1969
--- OUTSIDE RECORDS SUMMARY | 2024-10-04 07:07 | XMS_ITS ---
Author Organization [facility] Address [address] [place] [address] Care Team Providers Care Corporate Strategy Intern Name Role Phone So MCALLISTER, Primary Care Provider Unavaila Jose Doty Unavailable [phone] Eamon MCALLISTER, Zamzam Unavailable Unavailable REASON FOR VISIT CANCEL PROCEDURE Encounters Encounter Location Date Provider Diagnosis [facility] [address] [place] [address] 05/30/2024 Jose Arevalo PLAN OF TREATMENT No Information
--- OUTSIDE RECORDS SUMMARY | 2024-10-04 07:07 | XMS_ITS ---
Author Organization [facility] Address [address] [place] [address] Care Team Providers Care Consultants Intern Name Role Phone So MCALLISTER, Primary Care Provider Unavaila Jose Doty Unavailable [phone] Eamon MCALLISTER, Zamzam Unavailable Unavailable REASON FOR VISIT colonoscopy Encounters Encounter Location Date Provider Diagnosis [facility] [address] [place] [address] 05/27/2024 Jose Arevalo PLAN OF TREATMENT No Information
[2024-10-04 07:19] LABS: MANUAL DIFF FLAG NO
[2024-10-04 07:21] LABS: Basophils Percent Auto 0.7 % (0-2); Eosinophils Absolute Auto 0.2 X10*3/uL (0.0-0.4); Eosinophils Percent Auto 4.1 % (0-4); Hematocrit 36.1 % (42.0-52.0); Hemoglobin 12.3 g/dl (14.0-18.0); Imm Gran Abs Auto 0.08 X10*3/uL (0.00-0.03); Imm Gran Pct Auto 1.4 % (0.0-0.4); Lymphocytes Absolute Auto 1.3 X10*3/uL (1.2-4.9); Lymphocytes Percent Auto 22.4 % (20-40); Mean Corpuscular HGB Conc 34.1 g/dl (31.0-36.0); Mean Corpuscular Hemoglobin 32.2 pg (27.0-33.0); Mean Corpuscular Volume 94.5 fL (80.0-98.0); Mean Platelet Volume 9.1 fL (9.4-12.4); Monocytes Absolute Auto 0.7 X10*3/uL (0.1-1.2); Monocytes Percent Auto 11.5 % (2-11); Neutrophils Absolute Auto 3.4 x10*3/uL (2.0-8.3); Neutrophils Percent Auto 59.9 % (45-73); Platelet Count 224 X10*3/uL (160-400); Red Blood Count 3.82 X10*6/uL (4.60-5.80); Red Cell Distribution Width 19.3 % (11.0-16.0); White Blood Count 5.7 X10*3/uL (4.8-10.8)
[2024-10-04 08:24] LABS: Anion Gap 14 (12-20); Aspartate Amino Transferase 36 U/L (5-37); Bilirubin Total 0.5 mg/dL (0.0-1.0); Blood Urea Nitrogen 42 mg/dL (9-16); Calcium 9.6 mg/dL (8.4-10.2); Carbon Dioxide 26 mmol/L (22-29); Chloride 105 mmol/L (96-108); Estimated Glomerular Filt Rate 29; Glucose Fasting 104 mg/dL (60-99); Glucose Random 104 mg/dL (60-115); Potassium 4.3 mmol/L (3.3-5.1); Sodium 141 mmol/L (135-145); Total Protein 7.3 g/dL (6.5-8.0)
[2024-10-04 08:52] LABS: Alanine Aminotransferase 21 U/L (0-40); Alkaline Phosphatase 114 U/L (39-117); Thyroid Stimulating Hormone 59.59 uIU/mL (0.32-4.0)
[2024-10-05 06:54] LABS: Follicle Stimulating Hormone 25.7 mIU/mL (1.4-12.8); Lutenizing Hormone 6.7 mIU/mL (1.6-15.2); Prolactin 13.3 ng/mL (2.0-18.0)
[2024-10-05 10:34] LABS: Human Growth Hormone 0.5 ng/mL (< OR = 7.1)
[2024-10-05 21:39] LABS: Sex Hormone Binding Globulin 39 nmol/L (22-77)
[2024-10-10 15:44] LABS: IGF-1 (Somatomedin C) 162 ng/mL (41-279); IGF-1 Z Score (Male) 0.7 SD (-2.0 - +2.0)
[2024-10-11 14:13] LABS: Testosterone, Free 45.5 pg/mL (35.0-155.0); Testosterone, Total 350 ng/dL (250-1100)
== END 2024-10-04 07:05 | disposition home or self-care (01) ==
LOC: HO.LAB 07:04
PROVIDERS: Absent Provider Internal Medicine; PCP Internal Medicine; Visit Provider Student in an Organized Health Care Education/Training Program
DX: C67.9 Malignant neoplasm of bladder, unspecified (principal); E27.40 Unspecified adrenocortical insufficiency; E03.2 Hypothyroidism due to medicaments and other exogenous substances; E23.6 Other disorders of pituitary gland; E03.9 Hypothyroidism, unspecified
CPT/HCPCS: 36415; 80048; 80053; 83001; 83002; 83003; 84146; 84270; 84305; 84402; 84403; 84439; 84443; 85025

== ENCOUNTER 2024-10-17 07:28 | Outpatient (REF) | payer MEDICARE, OTHER, SELFPAY ==
[2024-10-17 08:39] LABS: Free T4 (Free Thyroxine) 0.73 ng/dL (0.71-1.85)
== END 2024-10-17 07:29 | disposition home or self-care (01) ==
LOC: HO.LAB 07:28
PROVIDERS: PCP Internal Medicine; Visit Provider Student in an Organized Health Care Education/Training Program
DX: Z13.89 Encounter for screening for other disorder (principal)
CPT/HCPCS: 36415; 84439

== ENCOUNTER 2024-10-18 07:05 | Outpatient (REF) | payer MEDICARE, OTHER, SELFPAY ==
[2024-10-18 07:21] LABS: MANUAL DIFF FLAG NO
[2024-10-18 07:26] LABS: Basophils Absolute Auto 0.1 X10*3/uL (0.0-0.2); Basophils Percent Auto 0.8 % (0-2); Eosinophils Absolute Auto 0.3 X10*3/uL (0.0-0.4); Eosinophils Percent Auto 4.7 % (0-4); Hematocrit 33.2 % (42.0-52.0); Hemoglobin 11.1 g/dl (14.0-18.0); Imm Gran Abs Auto 0.15 X10*3/uL (0.00-0.03); Imm Gran Pct Auto 2.3 % (0.0-0.4); Lymphocytes Absolute Auto 1.1 X10*3/uL (1.2-4.9); Lymphocytes Percent Auto 17.3 % (20-40); Mean Corpuscular HGB Conc 33.4 g/dl (31.0-36.0); Mean Corpuscular Hemoglobin 32.1 pg (27.0-33.0); Mean Platelet Volume 8.9 fL (9.4-12.4); Monocytes Absolute Auto 0.7 X10*3/uL (0.1-1.2); Monocytes Percent Auto 10.4 % (2-11); Neutrophils Absolute Auto 4.1 x10*3/uL (2.0-8.3); Neutrophils Percent Auto 64.5 % (45-73); Platelet Count 232 X10*3/uL (160-400); Red Blood Count 3.46 X10*6/uL (4.60-5.80); Red Cell Distribution Width 17.8 % (11.0-16.0); White Blood Count 6.4 X10*3/uL (4.8-10.8)
[2024-10-18 07:53] LABS: Alanine Aminotransferase 20 U/L (0-40); Albumin Level 3.8 g/dL (3.5-5.0); Alkaline Phosphatase 99 U/L (39-117); Anion Gap 11 (12-20); Aspartate Amino Transferase 34 U/L (5-37); Bilirubin Total 0.3 mg/dL (0.0-1.0); Blood Urea Nitrogen 37 mg/dL (9-16); Calcium 9.2 mg/dL (8.4-10.2); Carbon Dioxide 25 mmol/L (22-29); Chloride 105 mmol/L (96-108); Estimated Glomerular Filt Rate 18; Glucose Random 107 mg/dL (60-115); Potassium 4.2 mmol/L (3.3-5.1); Sodium 137 mmol/L (135-145); Total Protein 7.2 g/dL (6.5-8.0)
[2024-10-18 08:07] LABS: Thyroid Stimulating Hormone 58.14 uIU/mL (0.32-4.0)
== END 2024-10-18 07:06 | disposition home or self-care (01) ==
LOC: HO.LAB 07:05
PROVIDERS: PCP Internal Medicine; Visit Provider Internal Medicine
DX: Z13.89 Encounter for screening for other disorder (principal)
CPT/HCPCS: 36415; 80053; 84443; 85025; 99212

== ENCOUNTER 2024-10-18 07:54 | Outpatient (AMB) | payer MEDICARE, OTHER, SELFPAY ==
[2024-10-18 08:10] VITALS: BP 144/92; PULSE 90; BMI 33.7
--- NOTE | 2024-10-18 08:10 | A.OFFVIS_ITS ---
Vital Signs 10/18/24 08:10 Height 6 ft 2 in Weight 262 lb 12.656 oz BMI 33.7 BP 144/92 H Blood Pressure Location Lt brachial Position Sitting Pulse 90 Pulse Source Pulse Oximeter Intake Visit Reasons: adrenal insufficiency Intake Note: Patient present today for adrenal insufficiency office visit. 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 With regards to his bladder cancer was diagnosed in November 2023, underwent TURBT on 12/12/2023 . Biopsy revealed invasive urothelial carcinoma, high-grade, tumor invades muscularis propria, lymphatic vessel invasion is identified. He started neoadjuvant chemotherapy with cisplatin 70 mg/m2/gemcitabine 1000mg/m2 D 1 and 8 q 21 days from 02/27/2024 until 04/2024. He was diagnosed with metastatic disease in 06/11/2024 based on PET-CT. Patient underwent ultrasound-guided biopsy of left gluteal mass which revealed metastatic poorly differentiated carcinoma. He also underwent excision of left axillary mass on 05/31/2024, pathology revealed poorly differentiated carcinoma compatible with metastatic urothelial carcinoma. Patient started systemic therapy with Enfortumab vedotin with pembrolizumab administered every 21 days in 06/11/2024. He is continuing on this as of 10/03/24 Hypothyroidism His labs when showed normal TSH from 06/10/2024 with subsequently developing low TSH levels on 06/28/2024 at 0.21. Had further suppression of TSH with labs going down to 0.02 on 07/19/2024. Free T4 level was normal. He subsequently developed elevated TSH of 18.86 on 08/16/2024 and most recently blood work done on 08/19/2024 showed TSH of 29.74.. This pattern is consistent with thyroiditis seen in the setting of immune checkpoint inhibitor therapies which are known to cause endocrinopathies. In terms of thyroid dysfunction, PD 1 inhibitor such as pembrolizumab are the ones most commonly involve in causing thyroid dysfunction. Generally immune checkpoint inhibitor therapy does not need to be interrupted or discontinued. And this pattern is very commonly seen were patients develop thyroiditis with low TSH from 1-6 weeks post starting therapy subsequently followed by high TSH around 8 weeks of therapy. No compressive symptoms. No family history of thyroid disease or thyroid cancer. He denies biotin use. 08/19/2024: Started on levothyroxine 50 mcg daily. 08/11/2024: TSH 29.74 08/24/2024 TSH 51.52 08/26/2024: TSH 30.21 09/06/2024: TSH 46.98, Oncology team increased levothyroxine to 75 mcg daily 09/13/2024 TSH 56.20, free T4 0.61 09/23/2024: TSH 47.81, free T4 0.58 09/27/2024: TSH 45.96, TPO antibodies elevated at 85 Bowel movements are regular, no temperature intolerance , weight went down to 254 lbs in Aug 2024 from 260 lbs in Jul 2024 and npw back up at 263 lbs in Sep 2024. No skin or hair changes. 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 Denies any steroid use after that. Patient denied any lightheadeness, dizziness ,vomiting at the time of these labs, only mild nausea and some weight loss noted . 09/17/24 cortisol came back as <1, ACTH 7 , normal sodium and potassium , 09/18/24: Started hydrocortisone 20 mg in the morning and 10 mg in the afternoon at 1 pm 09/23/24: renin 0.71 , aldosterone pending still Currently as of 10/03/24 : denied any lightheadeness, dizziness ,vomiting at the time of these labs, only mild nausea , mild fatigue , denies any headaches or visual symptoms such as diplopia. Bowel movements are regular. Interval history 10/03/24 : last visit hydrocortisone chnaged to 20 mg in the morning and 5 mg in the afternoon at 2 pm Waiting for medical alert bracelet to be delivered Denies any nausea, vomiting, lightheadedness, dizziness Has not required any emergency dosing or stress dosing Physical exam General: sitting comfortably in no acute distress HEENT: normocephalic/atraumatic, moist oral mucosa Neck: supple, symmetrical, no thyromegaly Cardiac: normal heart sounds Pulm: normal breath sounds B/L, no added breath sounds Abd: not distended, no tenderness Extremities: no edema, no signs of myxedema Laboratory Tests 06/10/24 06/28/24 07/05/24 09:29 15:23 13:25 TSH 1.31 0.21 L 0.04 L Free T4 Total T3 07/08/24 07/19/24 07/26/24 10:22 13:23 14:41 TSH 0.02 L 0.02 L 0.25 L Free T4 1.41 Total T3 129 08/16/24 08/19/24 13:33 10:40 TSH 18.86 H 29.74 H Free T4 Total T3 Laboratory Tests 06/10/24 06/28/24 07/05/24 09:29 15:23 13:25 Sodium Potassium Creatinine Estimated GFR Renin TSH 1.31 0.21 L 0.04 L Free T4 Total T3 DHEA Sulfate Random Cortisol ACTH 07/08/24 07/19/24 07/26/24 10:22 13:23 14:41 Sodium Potassium Creatinine Estimated GFR Renin TSH 0.02 L 0.02 L 0.25 L Free T4 1.41 Total T3 129 DHEA Sulfate Random Cortisol ACTH 08/16/24 08/19/24 08/24/24 13:33 10:40 08:02 Sodium Potassium Creatinine Estimated GFR Renin TSH 18.86 H 29.74 H 51.52 H Free T4 Total T3 DHEA Sulfate Random Cortisol ACTH 08/26/24 09/06/24 09/13/24 11:22 12:53 12:10 Sodium Potassium Creatinine Estimated GFR Renin TSH 30.21 H 46.98 H 56.20 H Free T4 0.61 L Total T3 DHEA Sulfate Random Cortisol ACTH 09/17/24 09/23/24 09/27/24 07:00 12:50 14:42 Sodium 142 140 Potassium 4.4 4.8 Creatinine 2.08 H 2.03 H Estimated GFR 32 33 Renin 0.71 TSH 47.81 H 45.96 H Free T4 0.58 L Total T3 DHEA Sulfate 49 Random Cortisol < 1.0 ACTH 7 09/30/24 09:25 Sodium Potassium Creatinine Estimated GFR Renin TSH Free T4 Total T3 DHEA Sulfate Random Cortisol 13.1 ACTH Laboratory Tests 09/23/24 12:50 Thyroid Peroxidase Ab 86 (H) Laboratory Tests 10/04/24 10/17/24 10/18/24 07:16 07:39 07:19 Sodium 141 137 Potassium 4.3 4.2 Chloride 105 105 Carbon Dioxide 26 25 Creatinine 2.30 H 3.40 H Estimated GFR 29 18 TSH 59.59 H 58.14 H Free T4 0.60 L 0.73 FSH 25.7 H Luteinizing Hormone 6.7 Prolactin 13.3 Total Testosterone 350 Fr Testosterone Dialys 45.5 Sex Hormone Bind Glob 39 Human Growth Hormone 0.5 Somatomedin-C 162 Somato-C Z-Score Male 0.7 PFSH Medical History (Updated 10/03/24 @ 09:07 by Dilcia Brady MD) History of immune checkpoint inhibitor therapy Hypophysitis Adrenal insufficiency Hypothyroidism Port-A-Cath in place (02/16/24) History of blood transfusion Bladder cancer Obesity (BMI 30-39.9) Pure hypercholesterolemia Hyperlipemia Carpal tunnel syndrome Surgical History Mass of left axilla (05/31/24) Hx of colonoscopy Hx of cystoscopy History of surgery History of hand surgery History of ankle surgery History of cholecystectomy Family History Father Multiple sclerosis, primary progressive Mother No problems noted. 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 Current occupational exposures/hazards: No Cognitive needs: No Hearing needs: No Vision needs: Yes Physical Exam Vital Signs: Last Vital Signs Pulse 90 10/18/24 08:10 BP 144/92 H 10/18/24 08:10 BMI result Body Mass Index 33.7 Assessment & Plan Assessment & Plan (1) Hypothyroidism: Code(s): E03.9 - Hypothyroidism, unspecified Category: Medical Qualifiers: Hypothyroidism type: due to medication Qualified Code(s): E03.2 - Hypothyroidism due to medicaments and other exogenous substances Plan: 63-year-old male with metastatic bladder cancer on immunotherapy with pembrolizumab started 06/11/2024 every 21 days. His labs when showed normal TSH from 06/10/2024 with subsequently developing low TSH levels on 06/28/2024 at 0.21. Had further suppression of TSH with labs going down to 0.02 on 07/19/2024. Free T4 level was normal. He subsequently developed elevated TSH of 18.86 on 08/16/2024 and most recently blood work done on 08/19/2024 showed TSH of 29.74.. This pattern is consistent with thyroiditis seen in the setting of immune checkpoint inhibitor therapies which are known to cause endocrinopathies. In terms of thyroid dysfunction, PD 1 inhibitor such as pembrolizumab are the ones most commonly involve in causing thyroid dysfunction. Generally immune checkpoint inhibitor therapy does not need to be interrupted or discontinued. And this pattern is very commonly seen were patients develop thyroiditis with low TSH from 1-6 weeks post starting therapy subsequently followed by high TSH around 8 weeks of therapy. He has a immune checkpoint inhibitor induced hypothyroidism. Started on levothyroxine 50 mcg daily on 08/19/2024 which was increased to 75 mcg daily by the Oncology team on 09/06/2024.. 09/23/2024: TSH 47.81, free T4 0.58, 09/27/2024: TSH 45.96, labs continue to show elevated TSH. 10/04/2024: Levothyroxine dose increased to 100 mcg daily by me. We will wait for repeat labs around 11/15/2023 to further titrate up any dosage. Plan: -continue levothyroxine 100 mcg daily. -ordered TSH, free T4 to be done on 11/15/2023 -follow up in 3 months (2) Adrenal insufficiency: Code(s): E27.40 - Unspecified adrenocortical insufficiency Category: Medical Plan: 63-year-old male with metastatic bladder cancer on immunotherapy with pembrolizumab started 06/11/2024 every 21 days. He receives dexamethasone with his regimen. 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 Denies any steroid use after that. Patient denied any lightheadeness, dizziness ,vomiting at the time of these labs, only mild nausea and some weight loss noted . 09/17/24 cortisol came back as <1, ACTH 7 , normal sodium and potassium , labs consistent with secondary adrenal insufficiency. 09/18/24: Started hydrocortisone 20 mg in the morning and 10 mg in the afternoon at 1 pm 10/04/2024: Rest of the pituitary workup was unremarkable with normal testosterone, IGF-1 levels. Normal prolactin levels. This is consistent with isolated adrenal corticotropin hormone deficiency. Isolated corticotroph cells damage has been seen with pembrolizumab. Most patients with PD-1 inhibitors did not show any structural changes in the pituitary, those are more common with CTLA 4 inhibitors. At this point given he is not complaining of any vision changes or headaches I am going to not order a pituitary MRI as it does not affect clinical management. Plan: -reduce hydrocortisone to 10 mg in the morning and 5 mg in the afternoon -follow up in 3 months We again went over today how to manage adrenal insufficiency including sick day rule, stress dose requirement for procedures/surgeries, importance of having medical alert bracelet/neck less, and management with home IM hydrocortisone administration in case of repeated vomiting. (3) Hypophysitis: Code(s): E23.6 - Other disorders of pituitary gland Category: Medical Plan: See above (4) History of immune checkpoint inhibitor therapy: Code(s): Z92.26 - Personal history of immune checkpoint inhibitor therapy Category: Medical Plan: see above Plan I spent 30 minutes in reviewing the record, seeing the patient and documenting in the medical record. Orders: Orders Free T4 (Free Thyroxine) 11/14/24 E03.2 - Hypothyroidism due to medicaments and other exogenous substances, Z92.26 - Personal history of immune checkpoint in hibitor therapy Thyroid Stimulating Hormone 11/14/24 E03.2 - Hypothyroidism due to medicaments and other exogenous substances, Z92.26 - Personal history of immune checkpoint inhibitor therapy Patient Instructions: reduce hydrocortisone to 1 pill (10 mg) in the morning and half pill (5 mg) in the afternoon at 2 pm Continue levothyroxine 100 mcg daily Do repeat blood work around 11/15/23 for me for your thyroid ADRENAL SICK DAY RULE Minor ailments can affect anyone with a steroid-dependent adrenal condition very differently. Things like vomiting, diarrhea, colds and flu could cause an adrenal crisis. It's important that you spot the early symptoms of a bug or cold and adjust your steroid replacement medication. The Sick Day Rules are here to help you. If you're feeling ill or injured follow these rules to keep safe and reduce the chances of an adrenal crisis.?Make sure that you keep taking your medication whatever is going on. An adrenal crisis is serious, uncomfortable and can be life-threatening. What to do Double?your daily hydrocortisone, prednisone or prednisolone dose if: ? You have a temperature of 100.4 degrees or above. ? You get a bad cold, flu, diarrhea or other infection that makes you feel poorly or weak. ? You break a bone or suffer from any similar significant injury. For how long? ? Double your dose for 48-72 hours. If you are feeling better, go back to your usual dose. ? If you don't feel better after 48hrs, continue to double your does and speak to your doctor for more advice. ? If you are prescribed antibiotics, continue to double your dose until you finish the course or feel completely back to normal. I can't keep my medication down 1. If you vomit and bring up your medication within 30 minutes of taking it, take a double dose again immediately. 2. If you bring up the second dose,?inject yourself with 100mg of hydrocortisone?(if this has been prescribed to you) and seek medical advice immediately. 3. If you carry on vomiting, you will become dehydrated Remember to wear medical alert bracelet or necklace Coding Level of Care Code Est Pt Level 4 (23010) Diagnoses Hypothyroidism due to medication E03.2 Hypothyroidism type: due to medication Adrenal insufficiency E27.40 Hypophysitis E23.6 History of immune checkpoint inhibitor therapy Z92.26 Time Spent (min) 30
== END 2024-10-18 08:53 | disposition home or self-care (01) ==
PROVIDERS: PCP Internal Medicine; Visit Provider Student in an Organized Health Care Education/Training Program
DX: E03.2 Hypothyroidism due to medicaments and other exogenous substances (principal); E27.40 Unspecified adrenocortical insufficiency; E23.6 Other disorders of pituitary gland; Z92.26 Personal history of immune checkpoint inhibitor therapy
CPT/HCPCS: 99214

== ENCOUNTER 2024-10-18 15:00 | Inpatient (IN) | payer MEDICARE, OTHER, SELFPAY ==
--- NOTE | ~2024-10-18 | US_ITS ---
CLINICAL HISTORY: cady, rule out obstruction US Renal Comparison: CT/OT/PT/SR - PET CT FUSION SKULL TO THIGH - 07/30/24 11:15 EDT US/IL/SR - US RENAL BI - 01/17/24 15:26 EDT Findings: Right kidney is small in size., 8.1 x 3.2 x 4.0 cm length. Left kidney is normal in size, 12.0 x 6.4 x 7 cm length. No hydronephrosis of either kidney. IMPRESSION: No hydronephrosis. This document has been electronically signed by: Mayra Perdue MD on 10/18/2024 20:43:21
--- NOTE | ~2024-10-18 | IR_ITS ---
EXAMINATION: XR NEPHROSTOMY TUBE CHANGE, RIGHT CLINICAL INFORMATION: Obstructed uropathy. Patient has indwelling right nephrostomy tube which completely dislodged today COMPARISON: Images from prior exchange 05/23/2024. TECHNIQUE/FINDINGS: Patient was placed prone on the fluoroscopy table with the prior right nephrostomy tube site sterilely prepped and draped. 1% lidocaine was administered for local anesthesia. A 5 [place] hockey-stick catheter and Glidewire were successfully negotiated through the tract into the right renal collecting system. A new 8.5 [place] nephrostomy tube was placed. Satisfactory position was confirmed with contrast injection and an image was saved. The external portion of the tube was secured with a suture and the catheter was maintained to gravity bag drainage. A dressing was applied. Patient tolerated procedure well without immediate complications. FLUOROSCOPY TIME: IR/IR nephrostomy tube change IMPRESSION: Successful replacement of dislodged right nephrostomy tube Electronically signed by: Josef Mckoy MD 10/18/2024 05:12 PM [facility]
--- NOTE | 2024-10-18 15:09 | ED_ITS ---
HPI - General Adult General Chief complaint: General Medical Stated complaint: Nephrostomy tube issues Time Seen by Provider: 10/18/24 15:48 Source: patient Mode of arrival: ambulatory Limitations: no limitations History of Present Illness ED Provider: Quita Vallejo PA-C HPI narrative: Patient is a 63 year old assigned male at with a history of metastatic bladder cancer with a right sided nephrostomy tube in place since January 2024 that was last replaced 05/2024 presenting to the emergency department today after accidentally dislodging his right nephrostomy tube. Patient states that he was getting groceries when he twisted and accidentally dislodged his nephrostomy tube. Patient states that he has not eaten since 0800 this morning. Patient denies any dizziness, lightheadedness, abdominal pain, nausea, vomiting, fever, chills, blurry vision, double vision, loss of vision, chest pain, difficulty breathing, shortness of breath, back pain, night sweats, pain with urination, increased urinary frequency, increased urinary urgency, blood in his urine or stool, syncope or a near syncopal episode, recent trauma or falls, bowel incontinence, bladder incontinence, or any other complaints at this time. Relieving factors: none Exacerbating factors: none Associated symptoms: denies other symptoms Treatments prior to arrival: none Related Data Previous Rx's ?Medication ?Instructions ?Recorded atorvastatin 20 mg tablet 20 mg PO BEDTIME 90 days #90 tabs 01/29/24 ondansetron 8 mg disintegrating 8 mg PO Q8H PRN Nausea And 07/22/24 tablet Vomiting #60 tabs omeprazole magnesium 20 mg 20 mg PO DAILY #60 tabs 07/29/24 tablet,delayed release (Prilosec OTC) amlodipine 2.5 mg tablet 2.5 mg PO DAILY #90 tabs 08/16/24 hydrocortisone 10 mg tablet See Rx Instructions PO BID #90 tabs 10/03/24 hydrocortisone sod succ (PF) 100 100 mg (2 mL) IM DAILY #2 mL 10/03/24 mg/2 mL solution for injection (Solu-Cortef Act-O-Vial (PF)) syringe with needle 3 mL 23 gauge #2 ea 10/03/24 x 1 1/2 (BD Luer-Shiv Syringe) levothyroxine 100 mcg tablet 100 mcg PO DAILY #30 tabs 10/04/24 needle (disp) 18 G 18 gauge x 1 #50 ea 10/18/24 (BD Regular Bevel [place]) Allergies Allergy/AdvReac Type Severity Reaction Status Date / Time No Known Allergies Allergy Verified 10/18/24 15:12 [No Known Allergies*] Review of Systems 2 Constitutional: Constitutional: Reports no additional constitutional complaints, Denies chills, Denies fever(s) and Denies night sweats Eyes: Eyes: Reports no additional eye complaints, Denies blurry vision, Denies change in vision, Denies diplopia, Denies eye discharge, Denies loss of vision and Denies eye pain ENT: Denies dizziness Cardiovascular: Cardiovascular: Reports no additional cardiovascular complaints, Denies chest pain, Denies lightheadedness, Denies Loss of Consciousness and Denies dyspnea Respiratory: Respiratory: Reports no additional respiratory complaints and Denies dyspnea Gastrointestinal: Gastrointestinal: Reports no additional gastrointestinal complaints, Denies abdominal pain, Denies melena, Denies hematochezia, Denies change in bowel habits and Denies change in stool character Genitourinary: Genitourinary: Reports no additional male genitourinary complaints, Denies hematuria, Denies oliguria, Denies difficulty urinating, Denies dysuria, Denies urinary frequency, Denies urinary hesitancy, Denies urinary incontinence and Denies urinary urgency Comments: nephrostomy tube fell out Musculoskeletal: Musculoskeletal: Reports no additional musculoskeletal complaints, Denies numbness and Denies tingling Neurologic: Denies dizziness, Denies loss of vision, Denies numbness and Denies tingling Psychiatric: Psychiatric: Reports no additional psychiatric complaints Endocrine: Endocrine: Reports no additional endocrine complaints Hematologic/Lymphatic: Hematologic/Lymphatic: Reports no additional hematologic/lymphatic complaints Allergic/Immunologic: Allergic/Immunologic: Reports no additional allergic/immunologic complaints [facility] Past Medical History Attestation statement: The following information was validated with the patient. Source: old records reviewed and nursing notes reviewed Medical History History of immune checkpoint inhibitor therapy Hypophysitis Adrenal insufficiency Hypothyroidism Port-A-Cath in place (02/16/24) History of blood transfusion Bladder cancer Obesity (BMI 30-39.9) Pure hypercholesterolemia Hyperlipemia Carpal tunnel syndrome Surgical History Mass of left axilla (05/31/24) Hx of colonoscopy Hx of cystoscopy History of surgery History of hand surgery History of ankle surgery History of cholecystectomy Family History Family History Father Multiple sclerosis, primary progressive Mother No problems noted. Sister In good health Son In good health Daughter In good health Social History Social History Household Members: None Housing: House Are you a primary customer care coordinator to a significant other at home: No Do you presently have visiting nurse or other home services: No Alcohol intake: current Alcohol intake frequency: holidays/special occasions only Patient Tobacco Use Status: Former Tobacco user Tobacco use type: Cigarette e-Cigarette/Vaping Use: Never Used Second Hand Smoke Exposure: No Advance Directives: Yes Advance Directives on File: Yes Advance Directives Date on File: 03/05/18 Do you have a plan to hurt others: No Plan service: No Current occupational status: employed 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 Current occupational exposures/hazards: No Cognitive needs: No Hearing needs: No Vision needs: Yes Physical Exam ED Vital Signs: Vital Signs - 24 hr 10/18/24 15:11 10/18/24 16:50 10/18/24 17:00 Temperature 98 F 98.1 F Pulse Rate 105 H 104 H Respiratory Rate 18 18 20 Blood Pressure 150/87 H 174/109 H 157/105 H Pulse Oximetry 97 97 97 Oxygen Delivery Method Room Air Room Air Room Air 10/18/24 17:08 10/18/24 18:07 Temperature 97.9 F Pulse Rate 102 H 100 Respiratory Rate 21 H 20 Blood Pressure 154/108 H 149/106 H Pulse Oximetry 99 100 Oxygen Delivery Method Room Air Room Air BMI result Body Mass Index 32.1 Const General: cooperative, no acute distress, alert and awake Nutritional Appearance: well nourished Orientation/consciousness: patient oriented x3 Limitations: no limitations HENMT Head: Yes normal to inspection and Yes atraumatic Ears: hearing grossly normal bilaterally and external ears normal General nose exam: Normal external nose present, no nasal discharge noted and no epistaxis Face and sinus: Yes normal facial exam, No abrasion and No laceration Mouth: Normal oral and palatal mucosa present, no drooling and no muffled voice Eyes General: appearance normal, both eyes and all related structures Periorbital: periorbital findings normal Eyelids: Yes eyelids normal Conjunctivae: conjunctivae normal Pupils: Equal, round and reactive pupils present EOM: EOMs intact bilaterally Neck Neck: Yes normal visual inspection, Yes full ROM and Yes no lymphadenopathy Chest Chest palpation & inspection: normal inspection of the chest Resp Effort & Inspection: normal respiratory effort and able to speak in complete sentences GI Inspection: Yes normal to inspection Neuro General: patient oriented x3 and moves all extremities Cranial nerves: Yes Equal, round and reactive pupils present Cognition (Neuro): normal cognition Extrem Other: General: Yes full ROM and Yes capillary refill normal Psych Appearance: grossly normal Mental Status: mental status grossly normal Affect: normal affect Attitude: cooperative Thought process: Normal thought process present Thought content: Normal thought content present Insight: Good insight present (Psych) Course Course Course Narrative: RME performed by Quita Vallejo PA-C. Patient is a 63 year old assigned male at presenting to the emergency department after his nephrostomy tube fell out. Patient states he was running errands when his shirt got stuck to his tube and pulled it completely out. Detailed physical exam and review of systems are deferred to the cupola worker. Patient placed back in the waiting room pending room availability. Medications Administered Discontinued Medications Generic Name Dose Route Start Last Admin Trade Name Freq PRN Reason Stop Dose Admin Cefazolin Sodium 1 gm 10/18/24 17:15 10/18/24 17:05 Cefazolin Sodium 1 Gm Vial IVPUSH 10/18/24 17:16 1 gm PREOP ONE Administration Medical Decision Making Medical Decision Making [facility] Narrative: Patient is a 63 year old assigned male at with a history of metastatic bladder cancer with a right sided nephrostomy tube in place since January 2024 that was last replaced 05/2024 presenting to the emergency department today after accidentally dislodging his right nephrostomy tube. Patient's physical exam showed a dislodged nephrostomy tube as well as an extensive right upper leg wound from his nephrostomy tube leg bag strap. When I discovered the wound on the patient's leg - the patient explained that he keeps the leg bag strap very tight because the slipping was irritating . Patient's blood work showed a chronically elevated CR and a newly elevated CRP and ESR. I explained my physical exam findings as well as all test results to the patient. I answered all questions asked by the patient. I placed an 18g IV in the patient's left AC. IR was able to place a new right sided nephrostomy tube without incident and during the procedure, the patient received a gram of ancef. Given the extensive wound of the right upper leg and obvious evidence of cellulitis - I spoke with the hospitalist team who agreed to admission. Patient's clinical presentation is not consistent with sepsis (@1900). Patient verbalized agreement and understanding with this treatment plan and admission. Differential Diagnosis Differential Diagnoses: The differential diagnosis associated with the presentation includes Right upper leg cellulitis Dislodged nephrostomy tube Right upper leg wound Admission/Observation Consideration of admission/observation: Escalation of care including admission/observation considered Patient admitted Consult Healthcare Provider Management of the patient was discussed with: Hospitalist (agreed to admission as noted in the MDM Rationale portion of this note. ) and Rafter Cutting Machine Operator (spoke with IR who took the patient to the OR for nephrostomy tube replacement.) Lab Data [facility] Lab Attestation statement: I reviewed the patient's lab results. My interpretation of these results are in the MDM Rationale portion of this note. 10/18/24 17:53 10/18/24 17:53 Labs: Lab Results 10/18/24 Range/Units 17:53 WBC 7.3 (4.8-10.8) X10*3/uL RBC 3.42 L (4.60-5.80) X10*6/uL Hgb 11.0 L (14.0-18.0) g/dl Hct 32.4 L (42.0-52.0) % MCV 94.7 (80.0-98.0) fL MCH 32.2 (27.0-33.0) pg MCHC 34.0 (31.0-36.0) g/dl RDW 17.5 H (11.0-16.0) % Plt Count 228 (160-400) X10*3/uL MPV 9.5 (9.4-12.4) fL Immature Gran % (Auto) 1.5 H (0.0-0.4) % Neut % (Auto) 73.0 (45-73) % Lymph % (Auto) 13.4 L (20-40) % [place]on % (Auto) 10.5 (2-11) % Eos % (Auto) 1.0 (0-4) % Baso % (Auto) 0.6 (0-2) % Lymph # (Auto) 1.0 L (1.2-4.9) X10*3/uL [place]on # (Auto) 0.8 (0.1-1.2) X10*3/uL Eos # (Auto) 0.1 (0.0-0.4) X10*3/uL Baso # (Auto) 0.0 (0.0-0.2) X10*3/uL Abs Immat Gran (auto) 0.11 H (0.00-0.03) X10*3/uL Absolute Neuts (auto) 5.3 (2.0-8.3) x10*3/uL Absolute Nucleated RBC 0.000 (0.0-0.012) X10*3/uL Nucleated RBC % (auto) 0.0 (0.0-0.2) /100WBC ESR 69 H (0-15) MM/HR PT 10.4 L (10.9-12.4) SEC INR 0.9 (0.9-1.1) APTT 29.3 (26.0-36.8) SEC Sodium 140 (135-145) mmol/L Potassium 3.9 (3.3-5.1) mmol/L Chloride 104 (96-108) mmol/L Carbon Dioxide 20 L (22-29) mmol/L Anion Gap 20 (12-20) BUN 34 H (9-16) mg/dL Creatinine 3.30 H (0.5-1.4) mg/dL Estim Creat Clear Calc 29.8 Estimated GFR 19 Random Glucose 80 (60-115) mg/dL Lactic Acid 1.1 (0.5-2.0) mmol/L Calcium 9.1 (8.4-10.2) mg/dL Magnesium 2.0 (1.6-2.6) mg/dL Total Bilirubin 0.5 (0.0-1.0) mg/dL AST 35 (5-37) U/L ALT 18 (0-40) U/L Alkaline Phosphatase 100 (39-117) U/L C-Reactive Protein 3.00 H (< or = 0.50) mg/dL Total Protein 7.4 (6.5-8.0) g/dL Albumin 3.8 (3.5-5.0) g/dL Critical Care Time Critical Care Time Critical Care Time: Yes Total Critical Care Time: 48 Attestation: I spent 48 minutes of Critical Care Time with this patient. This does not include time spent on separately reported billable procedures. Discharge Plan Discharge Clinical Impression: Unspecified open wound, right thigh, initial encounter, Cellulitis Patient Disposition: Admitted As Inpatient
[2024-10-18 15:11] VITALS: BP 150/87; RESP 18; TEMP 36.6; O2SAT 97; BMI 32.1
--- OUTSIDE RECORDS SUMMARY | 2024-10-18 16:12 | XMS_ITS ---
Author Organization [facility] Address [address] [place] [address] Care Team Providers Care Resident Buyer Name Role Phone So MCALLISTER, Primary Care Provider Unavaila Jose Doty Unavailable [phone] Eamon MCALLISTER, Zazmam Unavailable Unavailable REASON FOR VISIT colonoscopy Encounters Encounter Location Date Provider Diagnosis [facility] [address] [place] [address] 05/27/2024 Jose Arevalo PLAN OF TREATMENT No Information
--- OUTSIDE RECORDS SUMMARY | 2024-10-18 16:12 | XMS_ITS ---
Author Organization [facility] Address [address] [place] [address] Care Team Providers Care Second Cutter Name Role Phone So MCALLISTER, Primary Care Provider Unavaila Jose Doty Unavailable [phone] Eamon MCALLISTER, Zamzam Unavailable Unavailable REASON FOR VISIT CANCEL PROCEDURE Encounters Encounter Location Date Provider Diagnosis [facility] [address] [place] [address] 05/30/2024 Jose Arevalo PLAN OF TREATMENT No Information
--- OUTSIDE RECORDS SUMMARY | 2024-10-18 16:12 | XMS_ITS | Patient Health Record ---
Author Organization [facility] Address [address] [place] [address] Care Team Providers Care Fish Cleaner Machine Tender Name Role Phone So MCALLISTER, Primary Care Provider Unavaila Jose Doty Unavailable [phone] Eamon MCALLISTER, Zamzam Unavailable Unavailable REASON FOR [...] Problem Epigastric abdominal pain (R10.13) Active confirmed 06134246 Problem Encounter for screening for malignant neoplasm of colon (Z12.11) Active confirmed 442428600 Problem Preprocedural examination (Z01.818) Active confirmed [id number] Problem Colon cancer screening (Z12.11) Active confirmed Colon cancer screening (175669119) Encounters Encounter Location Date Provider Diagnosis [facility] [address]patient [address] [place], [place] [id number] 06/03/[address] [facility] [address] [place] [phone] 04/23/2024 Jose Arevalo Colon cancer screening Z12.11 [facility] [address] [place] [phone] 05/27/[address] [facility] [address] [place] [phone] 05/30/2024 Jose Arevalo ASSESSMENTS Encounter Date Diagnosis [...] Date MEDICARE OF [place] [address] [place] [address] [id number] JOSE CUBA Self - patient is the insured [employer] [address] [place] [address] [id number] JOSE CUBA Self - patient is the insured MEDICAL (GENERAL) HISTORY Medical History History ICD Code Denies [place],DM,CVA,Lung disease,renal dise ase Hyperlipidemia Screening colonoscopy in Mar with Dr. Johansen revealed only hyperplastic polyps. EGD in 08/2017-small HH, normal duodenal and gastric biopsies Surgical History Surgery Date(Month/Year) Lap cholecystectomy--acalculous cholecys titis-Dr. Knutson 05/2017 Finger- infection drained 1969
[2024-10-18 16:50] VITALS: BP 174/109; PULSE 105; RESP 18; TEMP 36.7; O2SAT 97
[2024-10-18 17:00] VITALS: BP 157/105; PULSE 104; RESP 20; O2SAT 97
[2024-10-18] MEDS: ceFAZolin Sodium 1 GM VIAL IVPUSH (17:05)
[2024-10-18 17:08] VITALS: BP 154/108; PULSE 102; RESP 21; O2SAT 99
[2024-10-18 18:01] LABS: Basophils Percent Auto 0.6 % (0-2); Eosinophils Absolute Auto 0.1 X10*3/uL (0.0-0.4); Hematocrit 32.4 % (42.0-52.0); Imm Gran Abs Auto 0.11 X10*3/uL (0.00-0.03); Imm Gran Pct Auto 1.5 % (0.0-0.4); Lymphocytes Percent Auto 13.4 % (20-40); MANUAL DIFF FLAG NO; Mean Corpuscular Hemoglobin 32.2 pg (27.0-33.0); Mean Corpuscular Volume 94.7 fL (80.0-98.0); Mean Platelet Volume 9.5 fL (9.4-12.4); Monocytes Absolute Auto 0.8 X10*3/uL (0.1-1.2); Monocytes Percent Auto 10.5 % (2-11); Neutrophils Absolute Auto 5.3 x10*3/uL (2.0-8.3); Platelet Count 228 X10*3/uL (160-400); Red Blood Count 3.42 X10*6/uL (4.60-5.80); Red Cell Distribution Width 17.5 % (11.0-16.0); White Blood Count 7.3 X10*3/uL (4.8-10.8)
[2024-10-18 18:07] VITALS: BP 149/106; PULSE 100; RESP 20; TEMP 36.6; O2SAT 100
[2024-10-18 18:12] LABS: INTERNATIONAL NORM RATIO 0.9 (0.9-1.1); Prothrombin Time 10.4 SEC (10.9-12.4)
[2024-10-18 18:14] LABS: Partial Thromboplastin Time 29.3 SEC (26.0-36.8)
[2024-10-18 18:18] LABS: Alanine Aminotransferase 18 U/L (0-40); Albumin Level 3.8 g/dL (3.5-5.0); Alkaline Phosphatase 100 U/L (39-117); Anion Gap 20 (12-20); Aspartate Amino Transferase 35 U/L (5-37); Bilirubin Total 0.5 mg/dL (0.0-1.0); Blood Urea Nitrogen 34 mg/dL (9-16); Calcium 9.1 mg/dL (8.4-10.2); Carbon Dioxide 20 mmol/L (22-29); Chloride 104 mmol/L (96-108); Creatinine Clr Calc Pharmacy 29.8; Estimated Glomerular Filt Rate 19; Glucose Random 80 mg/dL (60-115); Potassium 3.9 mmol/L (3.3-5.1); Sodium 140 mmol/L (135-145); Total Protein 7.4 g/dL (6.5-8.0)
[2024-10-18 18:19] LABS: Lactic Acid 1.1 mmol/L (0.5-2.0)
[2024-10-18 18:39] LABS: Erythrocyte Sedimentation Rate 69 MM/HR (0-15)
--- NOTE | 2024-10-18 19:51 | PM.IMHP ---
History of Present Illness Date of Service: 10/18/24 Chief Complaint: dislodged nephrostomy tube 63M PMH metastatic baldder cancer s/p TURBT and right nephrostomy on immunotherapy, secondary adrenal insufficiency, hypothryoid, HTN, HLD, GERD, presented with nephrostomy tube dislodgement. Had been placed 02/10/2024, was accidentally displaced while getting groceries on day of presentation. Denies any dizziness, lightheadedness, fever, chills, nausea vomiting, shortness of breath, pain. While in ED patient had to be replaced by Interventional Radiology. Leg bag noted to be wrapped tightly around right lower extremity leading to ulceration with surrounding erythema and some purulence. Review of Systems Review of Systems: Yes all other systems are reviewed and are negative [facility] Medical History History of immune checkpoint inhibitor therapy Hypophysitis Adrenal insufficiency Hypothyroidism Port-A-Cath in place (02/16/24) History of blood transfusion Bladder cancer Obesity (BMI 30-39.9) Pure hypercholesterolemia Hyperlipemia Carpal tunnel syndrome Family History Father Multiple sclerosis, primary progressive Mother No problems noted. Sister In good health Son In good health Daughter In good health Surgical History Mass of left axilla (05/31/24) Hx of colonoscopy Hx of cystoscopy History of surgery History of hand surgery History of ankle surgery History of cholecystectomy Social History Household Members: None Housing: House Are you a primary overnight caregiver to a significant other at home: No Do you presently have visiting nurse or other home services: No Alcohol intake: current Alcohol intake frequency: holidays/special occasions only Patient Tobacco Use Status: Former Tobacco user Tobacco use type: Cigarette e-Cigarette/Vaping Use: Never Used Second Hand Smoke Exposure: No Advance Directives: Yes Advance Directives on File: Yes Advance Directives Date on File: 03/05/18 Do you have a plan to hurt others: No Plan service: No Current occupational status: employed 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 Current occupational exposures/hazards: No Cognitive needs: No Hearing needs: No Vision needs: Yes Meds Allergies Allergy/AdvReac Type Severity Reaction Status Date / Time No Known Allergies Allergy Verified 10/18/24 15:12 [No Known Allergies*] Active Medications: Current Medications Acetaminophen (Acetaminophen 325 Mg Tablet) 650 mg PO Q6H PRN PRN Reason: Pain, Mild 1-3,fever,headache Atorvastatin Calcium (Atorvastatin Calcium 20 Mg Tablet) 20 mg PO BEDTIME [facility] Calcium Carbonate (Calcium Carbonate 750 Mg Tab.Chew) 750 mg PO Q4H PRN PRN Reason: Heartburn Heparin Sodium (Porcine) (Heparin Sodium,Porcine 5,000 Unit/Ml Vial) 5,000 unit SUBCUT Q8H [facility] Hydrocortisone (Hydrocortisone 10 Mg Tablet) 5 mg PO BEDTIME [facility] Hydrocortisone (Hydrocortisone 10 Mg Tablet) 20 mg PO DAILY [facility] Hydrocortisone Sodium Succinate (Hydrocortisone Sod Succ/Pf 100 Mg Vial) 100 mg IVPUSH ONCE ONE Stop: 10/18/24 19:46 Vancomycin HCl 1,000 mg/ (Sodium Chloride) 270 mls @ 270 mls/hr IV Q24H [facility] Levothyroxine Sodium (Levothyroxine Sodium 100 Mcg Tablet) 100 mcg PO DAILY@0600 [facility] Magnesium Hydroxide (Milk Of Magnesia 30 Ml Oral.Susp) 30 ml PO DAILY PRN PRN Reason: Constipation Melatonin (Melatonin 3 Mg Tablet) 6 mg PO BEDTIME PRN PRN Reason: Insomnia Omeprazole (Omeprazole 20 Mg Capsule.Dr) 20 mg PO DAILY@0630 [facility] Pharmacy Consult (Consult Rx Vancomycin Dosing) 1 each MISCELLANE DAILY PRN PRN Reason: Consult order Sodium Chloride (0.9 % Sodium Chloride Flush 3 Ml Syringe) 3 ml IVFLUSH QSHIFT [facility] Physical Exam Vital Signs and Narrative: Vital Signs: Last Vital Signs Temp 97.9 F 10/18/24 18:07 Pulse 100 10/18/24 18:07 Resp 20 10/18/24 18:07 BP 149/106 H 10/18/24 18:07 Pulse Ox 100 10/18/24 18:07 O2 Del Method Room Air 10/18/24 18:07 BMI result Body Mass Index 32.1 General: AO X 3, no acute distress Resp: CTA bilateral, no accessory muscles used CVS: S1,S2,RRR GI: soft, non tender, non distended Neuro: motor grossly intact, alert Psych: appropriate affect, appropriate insight right nephrostomy in place, blood in bag rle erythema, ulcer on posterior (see ED note pics) Results Labs 10/18/24 17:53 10/18/24 17:53 Labs: Laboratory Results - last 24 hr 10/18/24 17:53 MCV 94.7 MCH 32.2 MCHC 34.0 RDW 17.5 H Plt Count 228 MPV 9.5 Immature Gran % (Auto) 1.5 H Neut % (Auto) 73.0 Lymph % (Auto) 13.4 L Mccone % (Auto) 10.5 Eos % (Auto) 1.0 Baso % (Auto) 0.6 Lymph # (Auto) 1.0 L Mccone # (Auto) 0.8 Eos # (Auto) 0.1 Baso # (Auto) 0.0 Abs Immat Gran (auto) 0.11 H Absolute Neuts (auto) 5.3 Absolute Nucleated RBC 0.000 Nucleated RBC % (auto) 0.0 ESR 69 H PT 10.4 L INR 0.9 APTT 29.3 Anion Gap 20 Estim Creat Clear Calc 29.8 Estimated GFR 19 Random Glucose 80 Lactic Acid 1.1 Calcium 9.1 Magnesium 2.0 Total Bilirubin 0.5 AST 35 ALT 18 Alkaline Phosphatase 100 C-Reactive Protein 3.00 H Total Protein 7.4 Albumin 3.8 Assessment and Plan (1) Cellulitis: Status: Acute Plan 63M PMH metastatic baldder cancer s/p TURBT and right nephrostomy on immunotherapy, secondary adrenal insufficiency, hypothryoid, HTN, HLD, GERD, presented with nephrostomy tube dislodgement Right lower extremity cellulitis and ulcer related to nephrostomy bag IV vancomycin, monitor troughs and creatinine, surgery eval Follow up cultures No sepsis, tachycardia and tachypnea due to pain, agitation Acute kidney injury on CKD 4 Check renal ultrasound, monitor Adrenal insufficiency We will give 1 dose of 100 mg hydrocortisone for stress Continue 20 mg q.a.m. and 5 mg q.p.m. Outpatient follow-up with endocrinology Hypothyroid Continue levothyroxine Hypertension Continue amlodipine as currently hypertensive Monitor for hypotension/adrenal crisis Hyperlipidemia Continue atorvastatin GERD Continue omeprazole Metastatic bladder CA Outpatient follow up with Oncology DVT prophylaxis with heparin subQ Full code Patient with significant cellulitis and ulcer requiring IV antibiotics and likely 2 midnights inpatient to follow up culture and monitor for improvement Quality Stroke Does the patient have a stroke diagnosis?: No VTE Prior VTE?: No VTE Risk Level:: Medical - moderate - high VTE Device Contraindication: Treatment Not Indicated VTE Drug Contraindication: N/A - Med Ordered
[2024-10-18] MEDS: vancomycin HCL 1,500 MG in 0.9 % Sodium Chloride 500 ML 333.33 MG IV (20:29)
[2024-10-18] MEDS: Heparin Sodium,Porcine 5,000 UNIT/ML VIAL 5000 UNIT SUBCUT (20:38)
[2024-10-18] MEDS: Hydrocortisone 10 MG TABLET 5 MG PO (20:40)
--- NOTE | 2024-10-18 21:15 | PHA.MEDREC ---
Pharmacy Consult ? Medication Reconciliation Pharmacy has completed the medication reconciliation. Spoke to patient at bedside, he confirmed his home meds. The hydrocortisone tablet is 20mg in the morning and 5mg at 1400, he takes his levothyroxine at 1300 and did not take it today, the rest of his meds he took this morning.
[2024-10-18 21:46] VITALS: BP 130/79; PULSE 107; RESP 18; TEMP 36.7; O2SAT 97
[2024-10-18] MEDS: 0.9 % Sodium Chloride Flush 3 ML SYRINGE IVFLUSH (22:15)
--- NOTE | 2024-10-19 00:34 | HO.SKINPHOTO ---
Location: right upper posterior leg Category: ulceration/cellulitis Stage: Length: Width: Depth: cm Location: Category: Stage: Length: Width: Depth: cm Location: Category: Stage: Length: Width: Depth: cm Location: Category: Stage: Length: Width: Depth: cm Location: Category: Stage: Length: Width: Depth: cm Location: Category: Stage: Length: Width: Depth: cm
[2024-10-19 03:40] VITALS: BP 121/68; PULSE 88; RESP 18; TEMP 36.5; O2SAT 98
[2024-10-19] MEDS: Heparin Sodium,Porcine 5,000 UNIT/ML VIAL 5000 UNIT SUBCUT ×2 (04:06→19:53)
[2024-10-19] MEDS: Omeprazole 20 MG CAPSULE.DR PO (05:51)
[2024-10-19] MEDS: Levothyroxine Sodium 100 MCG TABLET PO (05:51)
[2024-10-19 06:38] VITALS: BMI 32.1
[2024-10-19 06:48] LABS: Anion Gap 12 (12-20); Blood Urea Nitrogen 32 mg/dL (9-16); Calcium 8.8 mg/dL (8.4-10.2); Carbon Dioxide 20 mmol/L (22-29); Chloride 110 mmol/L (96-108); Creatinine Clr Calc Pharmacy 28.4; Estimated Glomerular Filt Rate 18; Glucose Random 97 mg/dL (60-115); Potassium 3.6 mmol/L (3.3-5.1); Sodium 138 mmol/L (135-145)
[2024-10-19 06:58] LABS: Hematocrit 30.8 % (42.0-52.0); Hemoglobin 10.5 g/dl (14.0-18.0); Mean Corpuscular HGB Conc 34.1 g/dl (31.0-36.0); Mean Corpuscular Hemoglobin 32.1 pg (27.0-33.0); Mean Corpuscular Volume 94.2 fL (80.0-98.0); Mean Platelet Volume 9.3 fL (9.4-12.4); Platelet Count 223 X10*3/uL (160-400); Red Blood Count 3.27 X10*6/uL (4.60-5.80); Red Cell Distribution Width 17.7 % (11.0-16.0); White Blood Count 4.4 X10*3/uL (4.8-10.8)
--- NOTE | 2024-10-19 07:44 | P.CONGS_ITS ---
History of Present Illness Consult details Consult date: 10/19/24 Narrative: Patient was a 63-year-old male whom I know from the past, who among other issues had a Helton catheter strap bag placed behind his right lower thigh too tightly and he developed some pressure necrosis of the posterior aspect of this area. Consult this for wound evaluation. Chart was reviewed and patient evaluated PMF Past Medical History Medical History History of immune checkpoint inhibitor therapy Hypophysitis Adrenal insufficiency Hypothyroidism Port-A-Cath in place (02/16/24) History of blood transfusion Bladder cancer Obesity (BMI 30-39.9) Pure hypercholesterolemia Hyperlipemia Carpal tunnel syndrome Family History Family History Father Multiple sclerosis, primary progressive Mother No problems noted. Sister In good health Son In good health Daughter In good health Surgical History Surgical History Mass of left axilla (05/31/24) Hx of colonoscopy Hx of cystoscopy History of surgery History of hand surgery History of ankle surgery History of cholecystectomy Social History Social History Household Members: None Housing: House Are you a primary director critical care to a significant other at home: No Do you presently have visiting nurse or other home services: No Alcohol intake: current Alcohol intake frequency: holidays/special occasions only Patient Tobacco Use Status: Former Tobacco user Tobacco use type: Cigarette e-Cigarette/Vaping Use: Never Used Second Hand Smoke Exposure: No Advance Directives Date on File: 03/05/18 service: No Current occupational status: employed 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 Current occupational exposures/hazards: No Cognitive needs: No Hearing needs: No Vision needs: Yes Meds Allergies Allergy/AdvReac Type Severity Reaction Status Date / Time No Known Allergies Allergy Verified 10/18/24 15:12 [No Known Allergies*] Active Medications: Current Medications Acetaminophen (Acetaminophen 325 Mg Tablet) 650 mg PO Q6H PRN PRN Reason: Pain, Mild 1-3,fever,headache Amlodipine Besylate (Amlodipine Besylate 2.5 Mg Tablet) 2.5 mg PO DAILY [facility]; Protocol Atorvastatin Calcium (Atorvastatin Calcium 20 Mg Tablet) 20 mg PO BEDTIME [facility] Last Admin: 10/18/24 20:44 Dose: Not Given Calcium Carbonate (Calcium Carbonate 750 Mg Tab.Chew) 750 mg PO Q4H PRN PRN Reason: Heartburn Heparin Sodium (Porcine) (Heparin Sodium,Porcine 5,000 Unit/Ml Vial) 5,000 unit SUBCUT Q8H [facility] Last Admin: 10/19/24 04:06 Dose: 5,000 unit Hydrocortisone (Hydrocortisone 10 Mg Tablet) 5 mg PO BEDTIME [facility] Last Admin: 10/18/24 20:40 Dose: 5 mg Hydrocortisone (Hydrocortisone 10 Mg Tablet) 20 mg PO DAILY [facility] Vancomycin HCl 750 mg/ Sodium (Chloride) 265 mls @ 265 mls/hr IV Q24H [facility] Levothyroxine Sodium (Levothyroxine Sodium 100 Mcg Tablet) 100 mcg PO DAILY@0600 [facility] Last Admin: 10/19/24 05:51 Dose: 100 mcg Magnesium Hydroxide (Milk Of Magnesia 30 Ml Oral.Susp) 30 ml PO DAILY PRN PRN Reason: Constipation Melatonin (Melatonin 3 Mg Tablet) 6 mg PO BEDTIME PRN PRN Reason: Insomnia Omeprazole (Omeprazole 20 Mg Capsule.Dr) 20 mg PO DAILY@0630 [facility] Last Admin: 10/19/24 05:51 Dose: 20 mg Pharmacy Consult (Consult Rx Vancomycin Dosing) 1 each MISCELLANE DAILY PRN PRN Reason: Consult order Sodium Chloride (0.9 % Sodium Chloride Flush 3 Ml Syringe) 3 ml IVFLUSH QSHIFT [facility] Last Admin: 10/18/24 22:15 Dose: 3 ml Home Medications ?Medication ?Instructions ?Recorded ?Confirmed ?Last Taken ?Type hydrocortisone 10 mg tablet 5 mg PO DAILY@1400 10/18/24 10/18/24 10/17/24 History hydrocortisone 10 mg tablet 20 mg PO DAILY 10/18/24 10/18/24 10/18/24 History levothyroxine 100 mcg tablet 100 mcg PO DAILY@1300 10/18/24 10/18/24 10/17/24 History Physical Exam 2 Vital Signs: Vital Signs: Last Vital Signs Temp 97.7 F 10/19/24 03:40 Pulse 88 10/19/24 03:40 Resp 18 10/19/24 03:40 BP 121/68 10/19/24 03:40 Pulse Ox 98 10/19/24 03:40 O2 Del Method Room Air 10/19/24 03:40 BMI result Body Mass Index 32.1 Extrem: Other: Transverse pressure ulcer/wound along the right posterior distal thigh consistent with having a Helton catheter strap to type. Wound is currently open and noninfected. Measures roughly 10 cm x 2 cm. Results Labs 10/19/24 05:37 10/19/24 05:37 Labs: Abnormal lab results 10/18/24 10/19/24 Range/Units 17:53 05:37 WBC 4.4 L (4.8-10.8) X10*3/uL RBC 3.42 L 3.27 L (4.60-5.80) X10*6/uL Hgb 11.0 L 10.5 L (14.0-18.0) g/dl Hct 32.4 L 30.8 L (42.0-52.0) % RDW 17.5 H 17.7 H (11.0-16.0) % MPV 9.3 L (9.4-12.4) fL Immature Gran % (Auto) 1.5 H (0.0-0.4) % Lymph % (Auto) 13.4 L (20-40) % Lymph # (Auto) 1.0 L (1.2-4.9) X10*3/uL Abs Immat Gran (auto) 0.11 H (0.00-0.03) X10*3/uL ESR 69 H (0-15) MM/HR PT 10.4 L (10.9-12.4) SEC Chloride 110 H (96-108) mmol/L Carbon Dioxide 20 L 20 L (22-29) mmol/L BUN 34 H 32 H (9-16) mg/dL Creatinine 3.30 H 3.47 H (0.5-1.4) mg/dL C-Reactive Protein 3.00 H (< or = 0.50) mg/dL Short CBC 10/18/24 10/19/24 Range/Units 17:53 05:37 WBC 7.3 4.4 L (4.8-10.8) X10*3/uL Hgb 11.0 L 10.5 L (14.0-18.0) g/dl Hct 32.4 L 30.8 L (42.0-52.0) % Plt Count 228 223 (160-400) X10*3/uL BMP 10/18/24 10/19/24 17:53 05:37 Sodium 140 138 Potassium 3.9 3.6 Chloride 104 110 H Carbon Dioxide 20 L 20 L BUN 34 H 32 H Creatinine 3.30 H 3.47 H Calcium 9.1 8.8 Liver Function 10/18/24 Range/Units 17:53 Total Bilirubin 0.5 (0.0-1.0) mg/dL AST 35 (5-37) U/L ALT 18 (0-40) U/L Alkaline Phosphatase 100 (39-117) U/L Albumin 3.8 (3.5-5.0) g/dL All other labs normal. Assessment and Plan (1) Unspecified open wound, right thigh, initial encounter: Status: Acute Plan Pressure wound of right posterior thigh. Current plan is that there was no infection and no active debridement is required. Local therapy in the form of dressings and avoiding any further trauma to the area was recommended. No current surgical issues. We will follow up p.r.n.. Procedures Date of Service Date of Service: 10/19/24
[2024-10-19 07:56] VITALS: BP 124/72; PULSE 88; RESP 16; TEMP 36.7; O2SAT 92
[2024-10-19] MEDS: 0.9 % Sodium Chloride Flush 3 ML SYRINGE IVFLUSH (08:30)
[2024-10-19] MEDS: Lactated Ringers 1,000 ML 80 ML IVCONT ×2 (08:31→21:11)
[2024-10-19] MEDS: Hydrocortisone 10 MG TABLET 20 MG PO (08:32)
[2024-10-19] MEDS: amLODIPine Besylate 2.5 MG TABLET PO (08:32)
--- NOTE | 2024-10-19 09:39 | MHC.CM.PN ---
PT REPORTS HE LIVES ALONE AND IS INDEPENDENT WITH CARE HE HAS NO DME AND NO SERVICES HCP ON FILE PCP: DAQUAN ARCOS AND PATTI LANTIGUA DELIVERED DCP: HOME VIA SELF TRANSPORT
[2024-10-19 10:25] LABS: Appearance Urine Turbid; Color Urine Yellow; Glucose Urine UA Negative (Negative); Leukocyte Esterase Urine Large (3+) (Negative); Nitrite Urine Negative (Negative); PH 5.5 (5.0-9.0); UMIC TRIGGER UA YES; Urine Blood Small (1+) (Negative); Urine Ketones Negative (Negative); Urine Protein 30 (1+) mg/dL (Neg-Trace)
[2024-10-19 10:35] LABS: Bacteria Urine Trace (None Seen); Hyaline Casts Urine 0-2 /LPF (0-2); RBC Urine 0-2 /HPF (0-2); Squamous Epithelial Cell Urine 0-2 /HPF (0-2); WBC Urine >50 /HPF (0-5)
[2024-10-19 10:54] LABS: Creatinine Urine 80.49 mg/dL; Microalbum/Creatinine Ratio Ur 65.8 ug/mg cr (<30); Protein/Creatinine Ratio, Ur 0.26 (<0.2); Total Protein Urine Random 21 mg/dL (<12)
--- NOTE | 2024-10-19 13:04 | P.PNIM_ITS ---
Subjective Subjective Date of Service: 10/19/24 Interval History: leg cellulitis Review of Systems right upper thigh erythema Physical Exam 2 Vital Signs: Vital Signs: Last Vital Signs Temp 98.0 F 10/19/24 07:56 Pulse 88 10/19/24 07:56 Resp 16 10/19/24 07:56 BP 124/72 10/19/24 07:56 Pulse Ox 92 10/19/24 07:56 O2 Del Method Room Air 10/19/24 07:56 BMI result Body Mass Index 32.1 General: AO X 3, no acute distress Resp: CTA bilateral, no accessory muscles used CVS: S1,S2,RRR GI: soft, non tender, non distended Neuro: motor grossly intact, alert Psych: appropriate affect, appropriate insight right nephrostomy in place, blood in bag rle erythema, ulcer on posterior (see ED note pics) Objective Data Active Medications Acetaminophen (Acetaminophen 325 Mg Tablet) 650 mg PO Q6H PRN PRN Reason: Pain, Mild 1-3,fever,headache Amlodipine Besylate (Amlodipine Besylate 2.5 Mg Tablet) 2.5 mg PO DAILY [facility]; Protocol Last Admin: 10/19/24 08:32 Dose: 2.5 mg Documented By: ANIKET Atorvastatin Calcium (Atorvastatin Calcium 20 Mg Tablet) 20 mg PO BEDTIME [facility] Last Admin: 10/18/24 20:44 Dose: Not Given Documented By: ELMER Non-Admin Reason: See Note Comments: not given pt said he took it in the AM today 20 mg Calcium Carbonate (Calcium Carbonate 750 Mg Tab.Chew) 750 mg PO Q4H PRN PRN Reason: Heartburn Heparin Sodium (Porcine) (Heparin Sodium,Porcine 5,000 Unit/Ml Vial) 5,000 unit SUBCUT Q8H [facility] Last Admin: 10/19/24 12:53 Dose: Not Given Documented By: ANIKET Non-Admin Reason: Physician Held Med Hydrocortisone (Hydrocortisone 10 Mg Tablet) 5 mg PO BEDTIME [facility] Last Admin: 10/18/24 20:40 Dose: 5 mg Documented By: ELMER Hydrocortisone (Hydrocortisone 10 Mg Tablet) 20 mg PO DAILY [facility] Last Admin: 10/19/24 08:32 Dose: 20 mg Documented By: ANIKET Vancomycin HCl 750 mg/ Sodium (Chloride) 265 mls @ 265 mls/hr IV Q24H [facility] Lactated Ringer's (Lr) 1,000 mls @ 80 mls/hr IVCONT .[id number] [facility] Last Admin: 10/19/24 08:31 Dose: 80 mls/hr Documented By: ANIKET Levothyroxine Sodium (Levothyroxine Sodium 100 Mcg Tablet) 100 mcg PO DAILY@0600 [facility] Last Admin: 10/19/24 05:51 Dose: 100 mcg Documented By: JANICE Magnesium Hydroxide (Milk Of Magnesia 30 Ml Oral.Susp) 30 ml PO DAILY PRN PRN Reason: Constipation Melatonin (Melatonin 3 Mg Tablet) 6 mg PO BEDTIME PRN PRN Reason: Insomnia Omeprazole (Omeprazole 20 Mg Capsule.Dr) 20 mg PO DAILY@0630 [facility] Last Admin: 10/19/24 05:51 Dose: 20 mg Documented By: JANICE Pharmacy Consult (Consult Rx Vancomycin Dosing) 1 each MISCELLANE DAILY PRN PRN Reason: Consult order Sodium Chloride (0.9 % Sodium Chloride Flush 3 Ml Syringe) 3 ml IVFLUSH QSHIFT [facility] Last Admin: 10/19/24 08:30 Dose: 3 ml Documented By: ANKIET Labs 10/19/24 05:37 10/19/24 05:37 Labs: Laboratory Results - last 24 hr 10/18/24 10/19/24 10/19/24 17:53 05:37 10:07 MCV 94.7 94.2 MCH 32.2 32.1 MCHC 34.0 34.1 RDW 17.5 H 17.7 H Plt Count 228 223 MPV 9.5 9.3 L Immature Gran % (Auto) 1.5 H Neut % (Auto) 73.0 Lymph % (Auto) 13.4 L [place]row % (Auto) 10.5 Eos % (Auto) 1.0 Baso % (Auto) 0.6 Lymph # (Auto) 1.0 L [place] # (Auto) 0.8 Eos # (Auto) 0.1 Baso # (Auto) 0.0 Abs Immat Gran (auto) 0.11 H Absolute Neuts (auto) 5.3 Absolute Nucleated RBC 0.000 0.000 Nucleated RBC % (auto) 0.0 0.0 ESR 69 H PT 10.4 L INR 0.9 APTT 29.3 Anion Gap 20 12 Estim Creat Clear Calc 29.8 28.4 Estimated GFR 19 18 Random Glucose 80 97 Lactic Acid 1.1 Calcium 9.1 8.8 Magnesium 2.0 Total Bilirubin 0.5 AST 35 ALT 18 Alkaline Phosphatase 100 C-Reactive Protein 3.00 H Total Protein 7.4 Albumin 3.8 Urine Color Yellow Urine Appearance Turbid Urine pH 5.5 Ur Specific Mcdonald 1.010 Urine Protein 30 (1+) H Urine Glucose (UA) Negative Urine Ketones Negative Urine Blood Small (1+) H Urine Nitrite Negative Ur Leukocyte Esterase Large (3+) H Urine RBC 0-2 Urine WBC >50 H Ur Squamous Epith Cells 0-2 Urine Bacteria Trace Hyaline Casts 0-2 U Random Total Protein 21 H Urine Creatinine 80.49 Urine Microalbumin 53.0 Microalb/Creat Ratio 65.8 H Protein/Creatinin Ratio 0.26 H Assessment and Plan (1) Cellulitis: Status: Acute Assessment and Plan: 63M PMH 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 Acute kidney injury on CKD 4 Check renal ultrasound-no hydronephrosis, monitor added ivf feli bmp Adrenal insufficiency: Continue 20 mg q.a.m. and 5 mg q.p.m. Outpatient follow-up with endocrinology Hypothyroid-Continue levothyroxine. Hypertension: Continue amlodipine as currently hypertensive Hyperlipidemia:Continue atorvastatin GERD:Continue omeprazole Metastatic bladder CA:Outpatient follow up with Oncology DVT prophylaxis with heparin subQ Full code ongoing significant cellulitis and ulcer requiring IV antibiotics and likely 2 midnights inpatient to follow up culture and monitor for improvement Quality Stroke Does the patient have a stroke diagnosis?: No VTE Prior VTE?: No VTE Risk Level:: Medical - moderate - high VTE Device Contraindication: Treatment Not Indicated VTE Drug Contraindication: N/A - Med Ordered
[2024-10-19] MEDS: Acetaminophen 325 MG TABLET 650 MG PO (14:20)
[2024-10-19 15:24] VITALS: BP 137/81; PULSE 84; RESP 16; TEMP 36.2; O2SAT 98
--- NOTE | 2024-10-19 19:07 | PC.NURSE ---
Pt empties own nephrostomy each time he voids in the BR. Color now yellow, slightly cloudy in nephrostomy
[2024-10-19 19:14] VITALS: BP 106/59; PULSE 91; RESP 16; TEMP 36.6; O2SAT 99
[2024-10-19 20:21] LABS: Vancomycin Random 10.1 mcg/mL (15-20)
[2024-10-19] MEDS: Atorvastatin Calcium 20 MG TABLET PO (21:09)
[2024-10-19] MEDS: Hydrocortisone 10 MG TABLET 5 MG PO (21:10)
[2024-10-19] MEDS: vancomycin HCL 750 MG in 0.9 % Sodium Chloride 250 ML 265 MG IV (22:13)
[2024-10-20 03:12] VITALS: BP 140/86; PULSE 85; RESP 18; TEMP 36.2; O2SAT 98
[2024-10-20] MEDS: Heparin Sodium,Porcine 5,000 UNIT/ML VIAL 5000 UNIT SUBCUT ×3 (04:55→20:45)
[2024-10-20] MEDS: Levothyroxine Sodium 100 MCG TABLET PO (06:37)
[2024-10-20] MEDS: Omeprazole 20 MG CAPSULE.DR PO (06:37)
[2024-10-20 07:29] VITALS: BP 131/87; PULSE 89; RESP 18; TEMP 36.3; O2SAT 98
[2024-10-20] MEDS: Hydrocortisone 10 MG TABLET 20 MG PO (07:39)
[2024-10-20] MEDS: amLODIPine Besylate 2.5 MG TABLET PO (07:39)
[2024-10-20] MEDS: Lactated Ringers 1,000 ML 80 ML IVCONT ×2 (07:40→20:44)
[2024-10-20 08:35] LABS: Anion Gap 12 (12-20); Blood Urea Nitrogen 29 mg/dL (9-16); Calcium 9.2 mg/dL (8.4-10.2); Carbon Dioxide 22 mmol/L (22-29); Chloride 111 mmol/L (96-108); Estimated Glomerular Filt Rate 18; Glucose Random 111 mg/dL (60-115); Potassium 4.3 mmol/L (3.3-5.1); Sodium 141 mmol/L (135-145)
--- NOTE | 2024-10-20 11:40 | P.PNIM_ITS ---
Subjective Subjective Date of Service: 10/20/24 Interval History: cady, cellulitis ,leg wound Review of Systems erythema seems improving no fever cr similar Physical Exam 2 Vital Signs: Vital Signs: Last Vital Signs Temp 97.4 F 10/20/24 07:29 Pulse 89 10/20/24 07:29 Resp 18 10/20/24 07:29 BP 131/87 10/20/24 07:29 Pulse Ox 98 10/20/24 07:29 O2 Del Method Room Air 10/20/24 07:29 BMI result Body Mass Index 32.1 General: AO X 3, no acute distress Resp: CTA bilateral, no accessory muscles used CVS: S1,S2,RRR GI: soft, non tender, non distended Neuro: motor grossly intact, alert Psych: appropriate affect, appropriate insight right nephrostomy in place, seems clear rle erythema, ulcer on posterior (see ED note pics) Objective Data Active Medications Acetaminophen (Acetaminophen 325 Mg Tablet) 650 mg PO Q6H PRN PRN Reason: Pain, Mild 1-3,fever,headache Last Admin: 10/19/24 14:20 Dose: 650 mg Documented By: ANIKET Amlodipine Besylate (Amlodipine Besylate 2.5 Mg Tablet) 2.5 mg PO DAILY [facility]; Protocol Last Admin: 10/20/24 07:39 Dose: 2.5 mg Documented By: ANIKET Atorvastatin Calcium (Atorvastatin Calcium 20 Mg Tablet) 20 mg PO BEDTIME [facility] 234 BEDS AT [facility] Last Admin: 10/19/24 21:09 Dose: 20 mg Documented By: JANICE Calcium Carbonate (Calcium Carbonate 750 Mg Tab.Chew) 750 mg PO Q4H PRN PRN Reason: Heartburn Heparin Sodium (Porcine) (Heparin Sodium,Porcine 5,000 Unit/Ml Vial) 5,000 unit SUBCUT Q8H [facility] Last Admin: 10/20/24 04:55 Dose: 5,000 unit Documented By: JANICE Hydrocortisone (Hydrocortisone 10 Mg Tablet) 5 mg PO BEDTIME [facility] Last Admin: 10/19/24 21:10 Dose: 5 mg Documented By: JANICE Hydrocortisone (Hydrocortisone 10 Mg Tablet) 20 mg PO DAILY [facility] 234 BEDS AT [facility] Last Admin: 10/20/24 07:39 Dose: 20 mg Documented By: ANIKET Vancomycin HCl 750 mg/ Sodium (Chloride) 265 mls @ 265 mls/hr IV Q24H [facility] 234 BEDS AT [facility] Last Infusion: 10/19/24 23:13 Dose: Infused Documented By: JANICE Lactated Ringer's (Lr) 1,000 mls @ 80 mls/hr IVCONT .[id number] [facility]S [facility]CLUDE 234 BEDS AT [facility] Last Admin: 10/20/24 07:40 Dose: 80 mls/hr Documented By: ANIKET Levothyroxine Sodium (Levothyroxine Sodium 100 Mcg Tablet) 100 mcg PO DAILY@0600 [facility] 234 BEDS AT [facility] Last Admin: 10/20/24 06:37 Dose: 100 mcg Documented By: JANICE Magnesium Hydroxide (Milk Of Magnesia 30 Ml Oral.Susp) 30 ml PO DAILY PRN PRN Reason: Constipation Melatonin (Melatonin 3 Mg Tablet) 6 mg PO BEDTIME PRN PRN Reason: Insomnia Omeprazole (Omeprazole 20 Mg Capsule.Dr) 20 mg PO DAILY@0630 [facility] 234 BEDS AT [facility] Last Admin: 10/20/24 06:37 Dose: 20 mg Documented By: JANICE Pharmacy Consult (Consult Rx Vancomycin Dosing) 1 each MISCELLANE DAILY PRN PRN Reason: Consult order Sodium Chloride (0.9 % Sodium Chloride Flush 3 Ml Syringe) 3 ml IVFLUSH QSHIFT [facility] 234 BEDS AT [facility] Last Admin: 10/20/24 07:36 Dose: Not Given Documented By: ANIKET Non-Admin Reason: IV Running Labs 10/19/24 05:37 10/20/24 08:08 Labs: Laboratory Results - last 24 hr 10/19/24 10/20/24 20:00 08:08 Anion Gap 12 Estim Creat Clear Calc 28.0 Estimated GFR 18 Random Glucose 111 Calcium 9.2 Random Vancomycin 10.1 L Microbiology Microbiology Results: Microbiology 10/18/24 17:53 Blood Culture - Preliminary Blood - Venous No growth after 24 hours. 10/18/24 17:53 Blood Culture - Preliminary Blood - Venous No growth after 24 hours. 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 Acute kidney injury on CKD 4 Check renal ultrasound-no hydronephrosis,? chemo related injury continue ivf and moniter bmp d/w with oncology -likely chemo related injury,nephrology eval Adrenal insufficiency: Continue 20 mg q.a.m. and 5 mg q.p.m. Outpatient follow-up with endocrinology Hypothyroid-Continue levothyroxine. Hypertension: Continue amlodipine as currently hypertensive Hyperlipidemia:Continue atorvastatin GERD:Continue omeprazole Metastatic bladder CA:Outpatient follow up with Oncology DVT prophylaxis with heparin subQ Full code ongoing significant cellulitis and ulcer requiring IV antibiotics and likely 2 midnights inpatient to follow up culture and monitor for improvement Quality Stroke Does the patient have a stroke diagnosis?: No VTE Prior VTE?: No VTE Risk Level:: Medical - moderate - high VTE Device Contraindication: Treatment Not Indicated VTE Drug Contraindication: N/A - Med Ordered
[2024-10-20] MEDS: Linezolid 600 MG TABLET PO (12:23)
[2024-10-20 15:20] VITALS: BP 145/80; PULSE 90; RESP 16; TEMP 36.1; O2SAT 100
[2024-10-20 19:07] VITALS: BP 136/82; PULSE 90; RESP 16; TEMP 36.3; O2SAT 97
[2024-10-20] MEDS: Atorvastatin Calcium 20 MG TABLET PO (20:45)
[2024-10-20] MEDS: Hydrocortisone 10 MG TABLET 5 MG PO (20:45)
[2024-10-21] MEDS: Linezolid 600 MG TABLET PO (00:30)
[2024-10-21] MEDS: 0.9 % Sodium Chloride Flush 3 ML SYRINGE IVFLUSH (00:31)
[2024-10-21 03:09] VITALS: BP 140/91; PULSE 92; RESP 18; TEMP 37.1; O2SAT 97
[2024-10-21] MEDS: Heparin Sodium,Porcine 5,000 UNIT/ML VIAL 5000 UNIT SUBCUT (03:18)
[2024-10-21] MEDS: Levothyroxine Sodium 100 MCG TABLET PO (06:01)
[2024-10-21] MEDS: Omeprazole 20 MG CAPSULE.DR PO (06:01)
[2024-10-21 07:09] LABS: Anion Gap 10 (12-20); Blood Urea Nitrogen 32 mg/dL (9-16); Calcium 8.8 mg/dL (8.4-10.2); Carbon Dioxide 24 mmol/L (22-29); Chloride 111 mmol/L (96-108); Creatinine Clr Calc Pharmacy 25.8; Estimated Glomerular Filt Rate 16; Glucose Random 109 mg/dL (60-115); Potassium 3.8 mmol/L (3.3-5.1); Sodium 141 mmol/L (135-145)
[2024-10-21 07:21] VITALS: BP 124/84; PULSE 77; RESP 18; TEMP 36.4; O2SAT 99
[2024-10-21] MEDS: amLODIPine Besylate 2.5 MG TABLET PO (08:32)
[2024-10-21] MEDS: Hydrocortisone 10 MG TABLET 20 MG PO (08:32)
--- NOTE | 2024-10-21 09:10 | PM.CNNEP ---
History of Present Illness Reason for Consult Consult date: 10/21/24 Reason for consult: GORDON Chief Complaint Chief complaint: cellulitus History of Present Illness Narrative: 63M PMH metastatic baldder cancer s/p TURBT and right nephrostomy on immunotherapy, secondary adrenal insufficiency, hypothryoid, HTN, HLD, GERD, presented with nephrostomy tube dislodgement. Had been placed 02/10/2024, was accidentally displaced while getting groceries on day of presentation. Denies any dizziness, lightheadedness, fever, chills, nausea vomiting, shortness of breath, pain. While in ED patient had to be replaced by Interventional Radiology. Leg bag noted to be wrapped tightly around right lower extremity leading to ulceration with surrounding erythema and some purulence. [facility] [address] [place] [address] [place] [id number] Office Visit Report Signed Patient: Brady Lambert MR#: [id number] : 1960 Acct:[id number] Age/Sex: 63 / M ADM/SER Date: 10/18/24 Loc: HO.[facility] ADM/SER Time:0754 Attending Provider: Dilcia Brady MD cc: Morris Rizzo MD~ Vital Signs 10/18/2408:10 Height 6 ft 2 in Weight 262 lb 12.656 oz BMI 33.7 BP 144/92 H Blood Pressure Location Lt brachial Position Sitting Pulse 90 Pulse Source Pulse Oximeter Intake Visit Reasons: adrenal insufficiency Intake Note: Patient present today for adrenal insufficiency office visit. 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 With regards to his bladder cancer was diagnosed in November 2023, underwent TURBT on 12/12/2023 . Biopsy revealed invasive urothelial carcinoma, high-grade, tumor invades muscularis propria, lymphatic vessel invasion is identified. He started neoadjuvant chemotherapy with cisplatin 70 mg/m2/gemcitabine 1000mg/m2 D 1 and 8 q 21 days from 02/27/2024 until 04/2024. He was diagnosed with metastatic disease in 06/11/2024 based on PET-CT. Patient underwent ultrasound-guided biopsy of left gluteal mass which revealed metastatic poorly differentiated carcinoma. He also underwent excision of left axillary mass on 05/31/2024, pathology revealed poorly differentiated carcinoma compatible with metastatic urothelial carcinoma. Patient started systemic therapy with Enfortumab vedotin with pembrolizumab administered every 21 days in 06/11/2024. He is continuing on this as of 10/03/24 Significant bump in creatinine and admitted on 10/18/24' Pembrolizumab on hold Renal ultrasound- no evidence of obstruction Review of Systems Constitutional: Denies fever(s) and Denies weight loss Cardiovascular: Denies chest pain Respiratory: Denies cough and Denies hemoptysis Gastrointestinal: Denies abdominal pain, Denies diarrhea and Denies nausea Musculoskeletal: Denies back pain Denies focal weakness PMFSH Past Medical History Medical History History of immune checkpoint inhibitor therapy Hypophysitis Adrenal insufficiency Hypothyroidism Port-A-Cath in place (02/16/24) History of blood transfusion Bladder cancer Obesity (BMI 30-39.9) Pure hypercholesterolemia Hyperlipemia Carpal tunnel syndrome Family History Family History Father Multiple sclerosis, primary progressive Mother No problems noted. Sister In good health Son In good health Daughter In good health Surgical History Surgical History Mass of left axilla (05/31/24) Hx of colonoscopy Hx of cystoscopy History of surgery History of hand surgery History of ankle surgery History of cholecystectomy Social History Social History Household Members: None Housing: House Are you a primary manager intensive care to a significant other at home: No Do you presently have visiting nurse or other home services: No Alcohol intake: current Alcohol intake frequency: holidays/special occasions only Patient Tobacco Use Status: Former Tobacco user Tobacco use type: Cigarette e-Cigarette/Vaping Use: Never Used Second Hand Smoke Exposure: No Advance Directives Date on File: 03/05/18 service: Yes Current occupational status: employed 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 Current occupational exposures/hazards: No Cognitive needs: No Hearing needs: No Vision needs: Yes Meds Allergies Allergy/AdvReac Type Severity Reaction Status Date / Time No Known Allergies Allergy Verified 10/18/24 15:12 [No Known Allergies*] Active Medications: Current Medications Acetaminophen (Acetaminophen 325 Mg Tablet) 650 mg PO Q6H PRN PRN Reason: Pain, Mild 1-3,fever,headache Last Admin: 10/19/24 14:20 Dose: 650 mg Amlodipine Besylate (Amlodipine Besylate 2.5 Mg Tablet) 2.5 mg PO DAILY [facility]; Protocol Last Admin: 10/21/24 08:32 Dose: 2.5 mg Atorvastatin Calcium (Atorvastatin Calcium 20 Mg Tablet) 20 mg PO BEDTIME [facility] Last Admin: 10/20/24 20:45 Dose: 20 mg Calcium Carbonate (Calcium Carbonate 750 Mg Tab.Chew) 750 mg PO Q4H PRN PRN Reason: Heartburn Heparin Sodium (Porcine) (Heparin Sodium,Porcine 5,000 Unit/Ml Vial) 5,000 unit SUBCUT Q8H [facility] Last Admin: 10/21/24 03:18 Dose: 5,000 unit Hydrocortisone (Hydrocortisone 10 Mg Tablet) 5 mg PO BEDTIME [facility] Last Admin: 10/20/24 20:45 Dose: 5 mg Hydrocortisone (Hydrocortisone 10 Mg Tablet) 20 mg PO DAILY [facility] Last Admin: 10/21/24 08:32 Dose: 20 mg Levothyroxine Sodium (Levothyroxine Sodium 100 Mcg Tablet) 100 mcg PO DAILY@0600 [facility] Last Admin: 10/21/24 06:01 Dose: 100 mcg Linezolid (Linezolid 600 Mg Tablet) 600 mg PO Q12H [facility] Last Admin: 10/21/24 00:30 Dose: 600 mg Magnesium Hydroxide (Milk Of Magnesia 30 Ml Oral.Susp) 30 ml PO DAILY PRN PRN Reason: Constipation Melatonin (Melatonin 3 Mg Tablet) 6 mg PO BEDTIME PRN PRN Reason: Insomnia Omeprazole (Omeprazole 20 Mg Capsule.Dr) 20 mg PO DAILY@0630 [facility] Last Admin: 10/21/24 06:01 Dose: 20 mg Sodium Chloride (0.9 % Sodium Chloride Flush 3 Ml Syringe) 3 ml IVFLUSH QSHIFT [facility] Last Admin: 10/21/24 08:31 Dose: Not Given Home Medications ?Medication ?Instructions ?Recorded ?Confirmed ?Last Taken ?Type hydrocortisone 10 mg tablet 5 mg PO DAILY@1400 10/18/24 10/18/24 10/17/24 History hydrocortisone 10 mg tablet 20 mg PO DAILY 10/18/24 10/18/24 10/18/24 History levothyroxine 100 mcg tablet 100 mcg PO DAILY@1300 10/18/24 10/18/24 10/17/24 History Physical Exam Vital Signs: Last Vital Signs Temp 97.6 F 10/21/24 07:21 Pulse 77 10/21/24 07:21 Resp 18 10/21/24 07:21 BP 124/84 10/21/24 07:21 Pulse Ox 99 10/21/24 07:21 O2 Del Method Room Air 10/21/24 07:21 BMI result Body Mass Index 32.1 Awake. Comfortable. Neck is supple. Mucosa moist. Lungs bilateral scattered rhonchi. Heart S1-S2 heard no gallop. Abdomen soft. Extremities no edema. No involuntary movements. No myoclonus. Results Lab Results 10/19/24 05:37 10/21/24 05:34 Lab results: Chemistry 10/18/24 10/19/24 10/20/24 17:53 05:37 08:08 Sodium 140 138 141 Potassium 3.9 3.6 4.3 Carbon Dioxide 20 L 20 L 22 BUN 34 H 32 H 29 H Creatinine 3.30 H 3.47 H 3.51 H Calcium 9.1 8.8 9.2 10/21/24 05:34 Sodium 141 Potassium 3.8 Carbon Dioxide 24 BUN 32 H Creatinine 3.82 H Calcium 8.8 Hematology 10/18/24 10/19/24 17:53 05:37 WBC 7.3 4.4 L Hgb 11.0 L 10.5 L Plt Count 228 223 Urinalysis 10/19/24 10:07 Urine Color Yellow Urine Appearance Turbid Urine pH 5.5 Ur Specific Union 1.010 Urine Protein 30 (1+) H Urine Glucose (UA) Negative Urine Ketones Negative Urine Blood Small (1+) H Urine Nitrite Negative Ur Leukocyte Esterase Large (3+) H Urine RBC 0-2 Urine WBC >50 H Ur Squamous Epith Cells 0-2 Hyaline Casts 0-2 Urine Studies 10/19/24 10:07 Urine Creatinine 80.49 Assessment and Plan (1) GORDON (acute kidney injury): Status: Acute Plan GORDON superimposed on CKD Multifactorial Underlying cisplatin nephropathy Obstructive uropathy - s/p Nephrostomy Superimpsoed GORDON - cannot rule out kidney injury due to Keytruda (pembrolizumab) therapy Pembrolizumab can can AIN/Tubular injury or Minimal change Luckily urine Pro: cr is only 0.26 and not suggestive of LIUDMILA Clinically no s/s of uremia Volume status acceptable Keep I > O OK to DC IVF Watch urine out put Patient is anxious to go home. OK to DC from a renal stand point and will follow as out patient Procedures Date of Service Date of Service: 10/21/24
--- NOTE | 2024-10-21 09:55 | MHC.CM.PN ---
pt dcd home self care
[2024-10-21] MEDS: cefuroxime axetiL 250 MG TABLET PO (10:29)
[2024-10-21] MEDS: Doxycycline Monohydrate 100 MG CAPSULE PO (10:29)
--- NOTE | 2024-10-21 10:36 | MHC.CM.PN ---
PT WILL BE DCD HOME W/VNA FOR WOUND CARE
--- NOTE | 2024-10-21 11:31 | P.DS_ITS ---
DS: Providers Provider Date of Service: 10/21/24 Date of admission: 10/18/24 19:43 Date of discharge: 10/21/24 Primary care physician: Morris Rizzo MD Consults: 10/18/24 19:50 Consult to General Surgery Routine Consulting Provider: [facility] Reason for consultation: RLE ulcer Consult to Wound Care Routine Reason for consultation: rle ulcer 10/18/24 21:33 Consult to Wound Care Routine Reason for consultation: right upper leg ulceration/cellulitis 10/19/24 07:52 Consult to Nephrology Routine Consulting Provider: [facility] Reason for consultation: gordon on ckd Has provider been notified: No 10/20/24 11:48 Consult to Wound Care Routine Reason for consultation: Right posterior thigh pressure wound from [place] catheter strap Has provider been notified: No DS: Diagnosis Discharge Diagnosis (1) GORDON (acute kidney injury): Status: Acute DS: Summary Hospital Course Hospital Course: Hpi:63M PMH metastatic baldder cancer s/p TURBT and right nephrostomy on immunotherapy, secondary adrenal insufficiency, hypothryoid, HTN, HLD, GERD, presented with nephrostomy tube dislodgement. Had been placed 02/10/2024, was accidentally displaced while getting groceries on day of presentation. Denies any dizziness, lightheadedness, fever, chills, nausea vomiting, shortness of breath, pain. While in ED patient had to be replaced by Interventional Radiology. Leg bag noted to be wrapped tightly around right lower extremity leading to ulceration with surrounding erythema and some purulence. Hospital course: patient was admitted to the hospital because of nephrostomy tube dislodgement status post replacement of tube by IR in ED, also found to have GORDON on CKD, UA shows pyuria/trace bacteriuria, in addition patient has metastatic bladder cancer for which patient was on chemo: Patient was given hydration but creatinine remained in 3.5-3.8 range, patient is still producing urine ,otherwise asymptomatic, nephrostomy tube also has clear urine. Patient nephrostomy tube has clear urine, renal ultrasound seems to be without any hydronephrosis. d/w uroology dr bauman -less likely urinary obstruction,Further management outpatient with Urology. His leg wound is also improving, cellulitis also improved with IV antibiotics, urine culture are pending: Patient is eager to go home we will send him home with p.o. Ceftin 250 b.i.d. for 7 days and doxycycline 100 mg p.o. b.i.d for 1 week. Patient previous urine culture was Klebsiella oxytoca-which was sensitive to ceftriaxone so Ceftin possibly will cover, patient otherwise denies any urinary complaints currently. He will follow urine culture final outpatient with PCP. Leg wound area seems improving-patient was strongly advised to not put urostomy bag in that area, avoid excessive pressure in that area,just dry sterile dressing to protect the area qother day . Patient will go home with VNA plan: p.o. Ceftin 250 b.i.d. for 7 days and doxycycline 100 mg p.o. b.i.d. Avoid nephrotoxic medications, encouraged for hydration,Further management of GORDON on CKD-outpatient with Nephrology/Oncology. moniter bmp follow up with nephro ,oncology and urology outpatient. Above management discussed with the patient in detail length he understand and in agreement with the above plan, time spent 40 minute. Time Attestation Total time managing care of this patient today: 40 mintues. Discharge Coordination Time (in mins): 40 min Quality: Safe Use of Opioids Does Pt have an Active Cancer Diagnosis on the Problem List?: Yes Opioid Measure Date for [facility] Report: 09/21/24 Opioid Measure Time for [facility] Report: 11:43 Quality: Stroke Does the patient have a stroke diagnosis?: No Physical Exam Vital Signs: Vital Signs: Last Vital Signs Temp 97.6 F 10/21/24 07:21 Pulse 77 10/21/24 07:21 Resp 18 10/21/24 07:21 BP 124/84 10/21/24 07:21 Pulse Ox 99 10/21/24 07:21 O2 Del Method Room Air 10/21/24 07:21 BMI result Body Mass Index 32.1 General: AO X 3, no acute distress Resp: CTA bilateral, no accessory muscles used CVS: S1,S2,RRR GI: soft, non tender, non distended Neuro: motor grossly intact, alert Psych: appropriate affect, appropriate insight right nephrostomy in place, seems clear erythema imrpoved., ulcer on posterior -seems simproving ,healing DS: Data Data Completed and Pending Labs on day of discharge: Laboratory Results - last 24 hr 10/21/24 05:34 Hold Purple Top SEE NOTE Sodium 141 Potassium 3.8 Chloride 111 H Carbon Dioxide 24 Anion Gap 10 L BUN 32 H Creatinine 3.82 H Estim Creat Clear Calc 25.8 Estimated GFR 16 Random Glucose 109 Calcium 8.8 Preliminary micro results at discharge 10/20/24 13:51 Urine Culture - Preliminary Urine clean catch - Clean Catch Midstream Culture in progress. 10/18/24 17:53 Blood Culture - Preliminary Blood - Venous No growth after 48 hours. 10/18/24 17:53 Blood Culture - Preliminary Blood - Venous No growth after 48 hours. Discharge Plan Discharge Anticipated Discharge Date/Time: 10/21/24 09:31 Patient Disposition: Home Health Service Discharge Diagnosis: cellulitis ,leg wound , gordon on ckd Referrals: [facility] [Other] - 1 Week Sangita Hopkins MD [Physician] - 1 Week Km Figueroa MD [Physician] - 1 Week Morris Rizzo MD [Primary Care Provider] - 1 Week Discharge Medications: New cefuroxime axetil 250 mg Tablet 250 mg PO Q12H Qty: 13 0RF doxycycline monohydrate 100 mg Capsule 100 mg PO Q12H Qty: 13 0RF Continued atorvastatin 20 mg tablet 20 mg PO BEDTIME 90 Days Qty: 90 1RF (DME) needle (disp) 18 G [BD Regular Bevel [place]] 18 gauge x 1 needle See Rx Instructions .Route Qty: 50 0RF Rx Instructions: As directed to draw hydrocortisone in case of emergency ondansetron 8 mg Tablet,Disintegrating 8 mg PO Q8H PRN (Reason: Nausea And Vomiting) Qty: 60 1RF omeprazole magnesium [Prilosec OTC] 20 mg Tablet,Delayed Release (Dr/Ec) 20 mg PO DAILY Qty: 60 2RF levothyroxine 100 mcg tablet 100 mcg PO DAILY@1300 hydrocortisone 10 mg Tablet 5 mg PO DAILY@1400 amlodipine 2.5 mg tablet 2.5 mg PO DAILY Qty: 90 3RF (DME) syringe with needle [BD Luer-Shiv Syringe] 3 mL 23 gauge x 1 1/2 syringe See Rx Instructions .ROUTE .MEDSUPPLY Qty: 2 0RF Rx Instructions: As directed to be used to inject hydrocortisone in case of emergency No Action prednisone 20 mg Tablet 100 mg PO DAILY Qty: 200 1RF Rx Instructions: Take 100 mg daily for 10 days followed by 80 mg daily for 10 days followed by 60 mg daily for 10 days followed by 40 mg daily for 2 weeks followed by 30 mg daily for 10 days followed by 20 mg daily for 10 days followed by 10 mg daily for 10 days and then stopped. Resume hydrocortisone twice a day after stopping prednisone Discharge Orders: Discharge Order (Routine); Ordered 10/21/24 Ordered By: Rahul Robles Diet: Advance to usual diet Activity on Discharge: As tolerated Stand Alone Forms: Patient Portal Discharge page Print Language: Upper Sorbian Other Ambulatory Orders: Basic Metabolic Panel (Routine) Timeframe: 1 Week Facility: [facility] - Location: Laboratory Ordered By: Rahul Robles Complete Blood Count no Diff (Routine) Timeframe: 1 Week Facility: [facility] - Location: Laboratory Ordered By: Rahul Robles Care Plan Goals: patient was admitted to the hospital because of nephrostomy tube dislodgement status post replacement of tube by IR in ED, also found to have GORDON on CKD, UA shows pyuria/trace bacteriuria, in addition patient has metastatic bladder cancer for which patient was on chemo: Patient was given hydration but creatinine remained in 3.5-3.8 range, patient is still producing urine ,otherwise asymptomatic, nephrostomy tube also has clear urine. Patient nephrostomy tube has clear urine, renal ultrasound seems to be without any hydronephrosis. Further management outpatient with Urology. His leg wound is also improving, cellulitis also improved with IV antibiotics, urine culture are pending: Patient is eager to go home we will send him home with p.o. Ceftin 250 b.i.d. for 7 days and doxycycline 100 mg p.o. b.i.d for 1 week. Patient previous urine culture was Klebsiella oxytoca-which was sensitive to ceftriaxone so Ceftin possibly will cover, patient otherwise denies any urinary complaints currently. He will follow urine culture final outpatient with PCP. Leg wound area seems improving-patient was strongly advised to not put urostomy bag in that area, avoid excessive pressure in that area,just dry sterile dressing to protect the area qother day . Patient will go home with VNA Health Concerns: As above. Plan of Treatment: p.o. Ceftin 250 b.i.d. for 7 days and doxycycline 100 mg p.o. b.i.d. moniter bmp follow up with nephro ,oncology and urology outpatient. Assessment: As above.
--- NOTE | 2024-10-21 11:39 | W.MHC.F2F ---
Service Date Service Date: 10/21/24 Encounter Date of encounter: 10/21/24 Encounter: leg wound,erythema Reasons for Services Signs and symptoms assessed: worsening erythema , dysuria Reason for senior care: wound care, medication management, medication treatment and teach disease management MD Overseeing Care: Morris Rizzo Homebound: Leaving the home is medically contraindicated at this time without the asist of a device and/or another person due th the listed conditions above and below. Reason homebound: weakness related to hospital stay Homebound supporting statement: Patient is generalised weak post hospitlisation and need help with going to dressing changes /wound care,appointments and labs draws as well as PT. Certification: Based on the above findings, I certify that this patient is confined to the home and needs intermittent senior care care, physical therapy and/or speech therapy, or continues to need occupational therapy. The patient is under my care, and I have initiated the establishment of the plan of care. The patient will be followed by a physician who will periodically review the plan of care. Time Spent With Patient Time: Total time managing care of this patient today ____ minutes.
--- NOTE | 2024-10-21 12:57 | MHC.CM.PN ---
per [facility]ns pt unable to have vna visits as thge dressing is anastasia phillips other day md notified will contact ot as well
--- NOTE | 2024-10-22 08:39 | MHC.CM.PN ---
[facility] has accepted and will see pt today pt notified
== END 2024-10-21 12:11 | disposition home health service (06) | DRG 699 ==
LOC: HO.ED 16:10 → HO.SSS 16:13 → HO.S3 19:48
PROVIDERS: Physician Assistant Medical; Student in an Organized Health Care Education/Training Program; Admitting Provider Internal Medicine; Emergency Provider Emergency Medicine; PCP Internal Medicine; Visit Provider Internal Medicine
PROC: 0T25X0Z Change Drainage Device in Kidney, External Approach (ICD-10-PCS; principal; 2024-10-18 17:00)
DX: T83.022A Displacement of nephrostomy catheter, initial encounter (principal); E27.40 Unspecified adrenocortical insufficiency; L03.115 Cellulitis of right lower limb; N18.4 Chronic kidney disease, stage 4 (severe); N17.9 Acute kidney failure, unspecified; L97.119 Non-pressure chronic ulcer of right thigh with unspecified severity; Y73.8 Miscellaneous gastroenterology and urology devices associated with adverse incidents, not elsewhere classified; Z87.891 Personal history of nicotine dependence; C67.9 Malignant neoplasm of bladder, unspecified; E03.9 Hypothyroidism, unspecified; I12.9 Hypertensive chronic kidney disease with stage 1 through stage 4 chronic kidney disease, or unspecified chronic kidney disease; K21.9 Gastro-esophageal reflux disease without esophagitis; Z79.890 Hormone replacement therapy; Z79.899 Other long term (current) drug therapy
CPT/HCPCS: 36415; 50435; 76775; 80048; 80053; 80202; 81001; 82043; 82570; 83605; 83735; 84156; 84439; 84443; 85025; 85027; 85610; 85652; 85730; 86140; 87040; 87086; 87088; 87186; 99212; 99285; J0690; J1644; J2003; J2310; J3010; J3370; J3371; J7120; Q9967

== ENCOUNTER 2024-10-18 19:43 | Outpatient (BNV) | payer MEDICARE, OTHER, SELFPAY | END 2024-10-18 19:59 | PROVIDERS: Admitting Provider Internal Medicine; Emergency Provider Emergency Medicine; PCP Internal Medicine; Visit Provider Radiology Diagnostic Radiology | DX: N13.9 Obstructive and reflux uropathy, unspecified (principal) | CPT/HCPCS: 50435 ==

== ENCOUNTER → 2024-10-18 19:43 | Outpatient (BNV) | payer MEDICARE, OTHER, SELFPAY | PROVIDERS: Admitting Provider Internal Medicine; Emergency Provider Emergency Medicine; PCP Internal Medicine; Visit Provider Internal Medicine Hypertension Specialist | DX: N17.9 Acute kidney failure, unspecified (principal); N18.9 Chronic kidney disease, unspecified | CPT/HCPCS: 99223 ==

== ENCOUNTER → 2024-10-18 19:43 | Outpatient (BNV) | payer MEDICARE, OTHER, SELFPAY | PROVIDERS: Admitting Provider Internal Medicine; Emergency Provider Emergency Medicine; PCP Internal Medicine; Visit Provider Internal Medicine | DX: L03.115 Cellulitis of right lower limb (principal); N17.9 Acute kidney failure, unspecified | CPT/HCPCS: 99223; 99232; 99239; G0180 ==

== ENCOUNTER → 2024-10-18 19:43 | Outpatient (BNV) | payer MEDICARE, OTHER, SELFPAY | PROVIDERS: Admitting Provider Internal Medicine; Emergency Provider Emergency Medicine; PCP Internal Medicine; Visit Provider Surgery | DX: S71.101A Unspecified open wound, right thigh, initial encounter (principal) | CPT/HCPCS: 99222 ==

== ENCOUNTER 2024-10-28 | Outpatient (REF) | payer MEDICARE, OTHER, SELFPAY ==
--- OUTSIDE RECORDS SUMMARY | 2024-12-09 10:14 | XMS_ITS | Patient Health Record ---
Author Organization [facility] Address [address] [place] [address] Care Team Providers Care Chronic Condition Nurse Name Role Phone So MCALLISTER, Primary Care Provider Unavaila Jose Doty Unavailable [phone] Eamon MCALLISTER, Zamzam Unavailable Unavailable REASON FOR [...] Problem Epigastric abdominal pain (R10.13) Active confirmed [id number] Problem Encounter for screening for malignant neoplasm of colon (Z12.11) Active confirmed 097741800 Problem Preprocedural examination (Z01.818) Active confirmed [id number] Problem Colon cancer screening (Z12.11) Active confirmed Colon cancer screening (213947950) Encounters Encounter Location Date Provider Diagnosis [facility] Outpatient [address] [place], [place] [phone] 06/03/2024 Jose Arevalo [facility] [address] [place] [address] 04/23/2024 Jose Arevalo Colon cancer screening Z12.11 [facility] [address] [place] [address] 05/27/2024 Jose Irina [facility] [address] [place] [phone] 05/30/2024 Jose Arevalo ASSESSMENTS Encounter Date Diagnosis [...] Date MEDICARE OF [place] [address] [facility] [place] [address] [id number] JOSE CUBA Self - patient is the insured [employer] [address] [place] [address] [id number] JOSE CUBA Self - patient is the insured MEDICAL (GENERAL) HISTORY Medical History History ICD Code Denies [place],DM,CVA,Lung disease,renal dise ase Hyperlipidemia Screening colonoscopy in Mar with Dr. Johansen revealed only hyperplastic polyps. EGD in 08/2017-small HH, normal duodenal and gastric biopsies Surgical History Surgery Date(Month/Year) Lap cholecystectomy--acalculous cholecys titis-Dr. Knutson 05/2017 Finger- infection drained 1969
--- OUTSIDE RECORDS SUMMARY | 2024-12-09 10:14 | XMS_ITS | Clinical Summary ---
Author Organization [facility] Address [address] [place] [address] Phone Care Team Providers Care Truck Farmer Name Role Phone Morris Rizzo MD Primary Care Provider [phone] Social History Tobacco Use Types Packs/Day Years [...] age to complete this topic Care Teams Truck Farmer Relationship Specialty Start Date End Date Morris Rizzo MD [address] [place] [address] [address] [place] [address] PCP - General Internal Medicine 05/27/22
--- OUTSIDE RECORDS SUMMARY | 2024-12-09 10:14 | XMS_ITS ---
Author Organization [facility] Address [address] [place] [address] Care Team Providers Care Solution Spec Name Role Phone So MCALLISTER, Primary Care Provider Unavaila Jose Doty Unavailable [phone] Eamon MCALLISTER, Zamzam Lindsay Unavailable REASON FOR VISIT colon screening Encounters Encounter Location Date Provider Diagnosis [facility] Outpatient [address] [place], [place] [id number] 06/03/2024 Jose Arevalo PLAN OF TREATMENT No Information
--- OUTSIDE RECORDS SUMMARY | 2024-12-09 10:14 | XMS_ITS | Referral Summary ---
Author Organization [facility] Address [address] [place] [address] Care Team Providers Care Professional Bondsman Name Role Phone Morris Rizzo Primary Care Provider [phone] Allergies No known active allergies Medications atorvastatin [...] Cessation:Counseling Given: Not Answered Comments:On and off 8804-5292 smoking, at most 1 PPD Alcohol Use [...] Not on file Procedures * Due to [place] [employer] law, this organization might not be sharing negative HIV tests. Procedure Name Priority Date/Time Associated Diagnosis Comments AMB EXTERNAL CT CHEST, OUTSI DE RESULT 01/23/2024 from Last 3 Months or Most Recently Relevant to Health Maintenance Results * Due to [place] [employer] law, this organization might not be sharing negative HIV tests. * AMB EXTERNAL CT CHEST, OUTSIDE RESULT (01/23/2024) Anatomical Region Laterality Modality Other 01/23/2024 us Onbase [facility] AMB EXTERNAL RESULT PROCEDURE S Final Result from Last 3 Months or Most Recently Relevant to Health Maintenance Insurance MEDICARE FOR LIFE Advance Directives Documents on File Type Date Recorded Patient Evp Operations Expl [facility] Care Proxy 05/27/2024 7:26 AM Care Teams Professional Bondsman Relationship Specialty Start Date End Date Morris Rizzo [address] [place] [address] [place] [address] PCP - General Internal Medicine 01/09/24
--- OUTSIDE RECORDS SUMMARY | 2024-12-09 10:14 | XMS_ITS ---
Author Organization [facility] Address [address] [place] [address] Care Team Providers Care Water Fabricator Operator Name Role Phone Morris Rizzo Primary Care Provider Active Problems Problem Noted Date Diagnosed Date Hyperkalemia 05/30/2024 Malignant neoplasm of overlapping sites of bladd er 03/04/2024 Other hydronephrosis 03/04/2024 Current Treatment and Therapy Plans No current plan information found. Past Treatment and Therapy Plans No past plan information found. Lifetime Dose Tracking * Chemical Lifetime Dose Automatic Entry Manual Entr y TotalDLP 1,042 mGy 1,042 mGy 0 mGy [id number] 13.5 mSv 13.5 mSv 0 mSv CTDIvol Max 11.8 mGy 11.8 mGy 0 mGy CTDIvol Min 7.3 mGy 7.3 mGy 0 mGy
--- OUTSIDE RECORDS SUMMARY | 2024-12-09 10:14 | XMS_ITS | Clinical Summary ---
Author Organization [facility] Address [address] [place] [address] Care Team Providers Care Gusset Ripper Name Role Phone Morris Rizzo Primary Care Provider [phone] Allergies No known active allergies Medications atorvastatin [...] Cessation:Counseling Given: Not Answered Comments:On and off 9200-9590 smoking, at most 1 PPD Alcohol Use [...] C Screening 1960 Sigmoidoscopy 1960 Pneumococcal Vaccine: 50+ Ye ars (1 of 2 - PCV) 1977 Zoster Vaccines (1 of 2) 1977 Hepatitis [...] patients) Completed 08/03/2023 Procedures * Due to [place] [employer] law, this organization might not be sharing negative HIV tests. Procedure Name Priority Date/Time Associated Diagnosis Comments AMB EXTERNAL CT CHEST, OUTSI DE RESULT 01/23/2024 from Last 3 Months or Most Recently Relevant to Health Maintenance Results * Due to [place] [employer] law, this organization might not be sharing negative HIV tests. * AMB EXTERNAL CT CHEST, OUTSIDE RESULT (01/23/2024) Anatomical Region Laterality Modality Other [facility]NAL RESULT PROCEDURE S Final Result from Last 3 Months or Most Recently Relevant to Health Maintenance Insurance MEDICARE FOR LIFE Advance Directives Documents on File Type Date Recorded Patient Justice Court Deputy Clerk Expl velas[facility] Health Care Proxy 05/27/2024 7:26 AM Care Teams Gusset Ripper Relationship Specialty Start Date End Date Morris Rizzo [address] [place] [address] Dr Raymond, [place] [address] PCP - General Internal Medicine 01/09/24
--- OUTSIDE RECORDS SUMMARY | 2024-12-09 10:14 | XMS_ITS ---
Author Organization [facility] Address [address] [place] [address] Care Team Providers Care Aerospace Quality Engineer Name Role Phone So MCALLISTER, Primary Care Provider Unavaila Jose Doty Unavailable [phone] Eamon MCALLISTER, Zamzam Unavailable Unavailable REASON FOR VISIT colonoscopy Encounters Encounter Location Date Provider Diagnosis [facility] [address] [place] [address] 05/27/2024 Jose Arevalo PLAN OF TREATMENT No Information
--- OUTSIDE RECORDS SUMMARY | 2024-12-09 10:14 | XMS_ITS ---
Author Organization [facility] Address [address] [place] [address] Care Team Providers Care Case Therapist Name Role Phone So MCALLISTER, Primary Care Provider Unavaila Jose Doty Unavailable [phone] Eamon MCALLISTER, Zamzam Unavailable Unavailable REASON FOR VISIT CANCEL PROCEDURE Encounters Encounter Location Date Provider Diagnosis [facility] [address] [place] [address] 05/30/2024 Jose Arevalo PLAN OF TREATMENT No Information
--- OUTSIDE RECORDS SUMMARY | 2024-12-09 10:14 | XMS_ITS | Encounter Summary ---
Author Organization [facility] Address [address] [place] [address] Care Team Providers Care Correctional Security Officer Name Role Phone Morris Rizzo Primary Care Provider [phone] Encounter Details Date Type Department Care Team (Late st Contact Info) Description 04/15/2024 Orders Only [facility] ACC Building Mammography [address] [facility], 5th [place] [address] Shola Arroyo MD [address] [place] [address] Social History Tobacco Use Types Packs/Day Years [...] on filedocumented in this encounter Care Teams Correctional Security Officer Relationship Specialty Start Date End Date Morris Rizzo [address] [place] [address] [place] [address] PCP - General Internal Medicine 01/09/24 documented as of this encounter
== END 2024-10-28 00:01 | disposition home or self-care (01) ==
LOC: CF
PROVIDERS: PCP Internal Medicine; Visit Provider Internal Medicine Hypertension Specialist
DX: C67.9 Malignant neoplasm of bladder, unspecified (principal); N13.30 Unspecified hydronephrosis; N18.32 Chronic kidney disease, stage 3b; N17.9 Acute kidney failure, unspecified; E27.40 Unspecified adrenocortical insufficiency; Z93.6 Other artificial openings of urinary tract status
CPT/HCPCS: 99212

== ENCOUNTER 2024-10-28 06:16 | Outpatient (REF) | payer MEDICARE, OTHER, SELFPAY ==
--- OUTSIDE RECORDS SUMMARY | 2024-10-28 06:24 | XMS_ITS ---
Author Organization [facility] Address [address] [place] [address] Care Team Providers Care Motor Coach Operator Name Role Phone So MCALLISTER, Primary Care Provider Unavaila Jose Doty Unavailable [phone] Eamon MCALLISTER, Zamzam Unavailable Unavailable REASON FOR VISIT colonoscopy Encounters Encounter Location Date Provider Diagnosis [facility] [address] [place] [address] 05/27/2024 Jose Arevalo PLAN OF TREATMENT No Information
--- OUTSIDE RECORDS SUMMARY | 2024-10-28 06:24 | XMS_ITS ---
Author Organization [facility] Address [address] [place] [address] Care Team Providers Care White Washer Piler Name Role Phone So MCALLISTER, Primary Care Provider Unavaila Jose Doty Unavailable [phone] Eamon MCALLISTER, Zamzam Lindsay Unavailable REASON FOR VISIT colon screening Encounters Encounter Location Date Provider Diagnosis [facility] [place] Out[place] [address] [place], [place] [id number] 06/03/2024 Jose Arevalo PLAN OF TREATMENT No Information
--- OUTSIDE RECORDS SUMMARY | 2024-10-28 06:24 | XMS_ITS ---
Author Organization [facility] Address [address] [place] [address] Care Team Providers Care Law Professor Name Role Phone So MCALLISTER, Primary Care Provider Unavaila Jose Doty Unavailable [phone] Eamon MCALLISTER, Zamzam Unavailable Unavailable REASON FOR VISIT CANCEL PROCEDURE Encounters Encounter Location Date Provider Diagnosis [facility] [address] [place] [address] 05/30/2024 Jose Arevalo PLAN OF TREATMENT No Information
--- OUTSIDE RECORDS SUMMARY | 2024-10-28 06:25 | XMS_ITS | Patient Health Record ---
Author Organization [facility] Address [address] [place] [address] Care Team Providers Care Jar Filler Name Role Phone So MCALLISTER, Primary Care Provider Unavaila yaquelin Arevalo Jose Unavailable [phone] Eamon MCALLISTER, Zamzam Unavailable Unavailable REASON FOR [...] Problem Epigastric abdominal pain (R10.13) Active confirmed [id number] Problem Encounter for screening for malignant neoplasm of colon (Z12.11) Active confirmed 260483734 Problem Preprocedural examination (Z01.818) Active confirmed [id number] Problem Colon cancer screening (Z12.11) Active confirmed Colon cancer screening (248174848) Encounters Encounter Location Date Provider Diagnosis [facility] [place] [place] Outpatient [address] [place], [place] [id number] 06/03/[address] [facility] [address] [place] [address] 04/23/2024 Jose Arevalo Colon cancer screening Z12.11 [facility] [address] [place] [address] 05/27/[address] [facility] [address] [place] [address] 05/30/2024 Jose Arevalo ASSESSMENTS Encounter Date Diagnosis [...] Date MEDICARE OF [place] [address] [place] [address] [phone] [id number] JOSE CUBA Self - patient is the insured [employer] [address] [place] [address] [id number] JOSE CUBA Self - patient is the insured MEDICAL (GENERAL) HISTORY Medical History History ICD Code Denies DC,DM,CVA,Lung disease,renal dise ase Hyperlipidemia Screening colonoscopy in Mar with Dr. Johansen revealed only hyperplastic polyps. EGD in 08/2017-small HH, normal duodenal and gastric biopsies Surgical History Surgery Date(Month/Year) Lap cholecystectomy--acalculous cholecys titis-Dr. Knutson 05/2017 Finger- infection drained 1969
[2024-10-28 08:16] LABS: Hematocrit 33.4 % (42.0-52.0); Mean Corpuscular HGB Conc 32.9 g/dl (31.0-36.0); Mean Corpuscular Hemoglobin 31.9 pg (27.0-33.0); Mean Corpuscular Volume 96.8 fL (80.0-98.0); Mean Platelet Volume 9.5 fL (9.4-12.4); NRBC Pct Auto 0.2 /100WBC (0.0-0.2); Platelet Count 259 X10*3/uL (160-400); Red Blood Count 3.45 X10*6/uL (4.60-5.80); Red Cell Distribution Width 18.1 % (11.0-16.0); White Blood Count 9.7 X10*3/uL (4.8-10.8)
[2024-10-28 09:06] LABS: Band Neutrophils Percent 7 % (3-5); Lymphocytes Absolute Manual 0.7 X10*3/uL (1.2-4.9); Lymphocytes Percent Manual 7 % (20-40); Metamyelocytes Absolute 0.1 X10*3/uL; Metamyelocytes Percent 1 %; Monocytes Absolute Manual 0.1 X10*3/uL (0.1-1.2); Monocytes Percent Manual 1 % (2-11); Myelocytes Absolute 0.1 X10*/uL; Myelocytes Percent 1 %; Neutrophils Absolute Manual 8.7 X10*3/uL (2.0-8.3); Neutrophils Percent Manual 83 % (45-73)
[2024-10-28 09:07] LABS: Platelet Estimate NORMAL (NORMAL); Platelet Morphology Comment NORMAL; RBC Morphology NORMAL
[2024-10-28 09:36] LABS: Alanine Aminotransferase 19 U/L (0-40); Albumin Level 3.6 g/dL (3.5-5.0); Alkaline Phosphatase 68 U/L (39-117); Anion Gap 11 (12-20); Aspartate Amino Transferase 28 U/L (5-37); Bilirubin Total 0.3 mg/dL (0.0-1.0); Blood Urea Nitrogen 72 mg/dL (9-16); Carbon Dioxide 21 mmol/L (22-29); Chloride 110 mmol/L (96-108); Estimated Glomerular Filt Rate 22; Glucose Random 114 mg/dL (60-115); Potassium 5.1 mmol/L (3.3-5.1); Sodium 137 mmol/L (135-145); Thyroid Stimulating Hormone 12.55 uIU/mL (0.32-4.0); Total Protein 6.6 g/dL (6.5-8.0)
== END 2024-10-28 06:17 | disposition home or self-care (01) ==
LOC: HO.LAB 06:16
PROVIDERS: Absent Provider Internal Medicine Rheumatology; PCP Internal Medicine; Visit Provider Internal Medicine
DX: C67.9 Malignant neoplasm of bladder, unspecified (principal)
CPT/HCPCS: 36415; 80053; 84443; 85007; 85025; 85027

== ENCOUNTER 2024-10-28 14:33 | Outpatient (AMB) | payer MEDICARE, OTHER, SELFPAY ==
--- NOTE | 2024-10-28 14:45 | HO.NEPHOV ---
Vital Signs 10/28/24 14:46 Height 6 ft 2 in Weight 264 lb BMI 33.9 BP 156/100 H Blood Pressure Location Lt brachial Position Sitting Pulse 86 Pulse Source Pulse Oximeter Pulse Oximetry (%) 99 Oxygen Delivery Method Room Air Intake Visit Reasons: [facility] [place] F/U CONF Hanger Required: No Accompanied by: Self / Same As Patient Allergies No Known Allergies [No Known Allergies*] Allergy (Verified 10/28/24 14:49) Medication List - Last Reconciled 10/28/24 by Km Figueroa MD amlodipine 2.5 mg PO DAILY atorvastatin 20 mg PO BEDTIME 90 days hydrocortisone 5 mg PO DAILY@1400 levothyroxine 100 mcg PO DAILY@1300 needle (disp) 18 G (BD Regular Bevel [place]) As directed to draw hydrocortisone in case of emergency omeprazole magnesium (Prilosec OTC) 20 mg PO DAILY ondansetron 8 mg PO Q8H PRN prednisone 100 mg (5 x 20 mg) PO DAILY syringe with needle (BD Luer-Shiv Syringe) As directed to be used to inject hydrocortisone in case of emergency HPI Comments Details: 63M PMH metastatic baldder cancer s/p TURBT and right nephrostomy on immunotherapy, secondary adrenal insufficiency, hypothryoid, HTN, HLD, GERD, CT urogram performed 12/06/2023 revealed moderate right hydronephrosis extending down to bladder, large heterogenous mass in the right side of bladder involving right lateral bladder wall, right UVJ region and posterior inferior base of the bladder extending toward the left UVJ concerning for bladder neoplasm. Mass is irregular in shape and difficult to measure. There is stranding of the adjacent perivesicular fat, small right retroperitoneal lymph node seen. Staging CT chest and bone scan did not show evidence of metastatic disease. Clinical stage T2/3 N0. He underwent TURBT on 12/12/2023 which revealed a necrotic bladder tumor involving right lateral wall and right trigone, right ureteral orifice was not visualized. Biopsy revealed invasive urothelial carcinoma, high-grade, tumor invades muscularis propria, lymphatic vessel invasion is identified. IHC showed focal positivity for CK20, negative for synaptophysin and chromogranin. MSI, PD-L1 positive, expression is 100% and NGS negative all pertinent mutations. (MET Exon 14 deletion, negative for alk, BRAF, FGFR 1/2/3/4, notch 1 and 2, ret and ROS1) He had right fluoroscopic guided placement of nephrostomy tube in the right kidney on 02/12/2024. He started neoadjuvant chemotherapy with cisplatin 70 mg/m2/gemcitabine 1000mg/m2 D 1 and 8 q 21 days from 02/27/2024 until 04/2024. Unfortunately, PET-CT performed at [facility] in 06/11/2024 showed multiple subcutaneous and intramuscular nodules demonstrating [id number]-ag-[id number] FDG uptake. Predominantly in the left axilla, left gluteal region. Moderate FDG uptake corresponding to right posterolateral bladder mass. No FDG avid abdominopelvic lymphadenopathy. Patient underwent ultrasound-guided biopsy of left gluteal mass which revealed metastatic poorly differentiated carcinoma. Immunostains showed positivity for CK7, focal positive tiara 3 compatible with metastatic urothelial carcinoma. Recently hospitalized for GORDON. Creatinine peaked at 3.8. He was on Pembrolizumab and this was stopped. He was given IV hydration and discharged home since he was nonoliguric. He is here for follow-up. Creatinine is decreased to 2.9. Overall he feels okay no specific complaints today. He has a follow-up appointment with the oncologist next week [facility] Medical History History of immune checkpoint inhibitor therapy Hypophysitis Adrenal insufficiency Hypothyroidism Port-A-Cath in place (02/16/24) History of blood transfusion Bladder cancer Obesity (BMI 30-39.9) Pure hypercholesterolemia Hyperlipemia Carpal tunnel syndrome Surgical History Mass of left axilla (05/31/24) Hx of colonoscopy Hx of cystoscopy History of surgery History of hand surgery History of ankle surgery History of cholecystectomy Family History Father Multiple sclerosis, primary progressive Mother No problems noted. Sister In good health Son In good health Daughter In good health Social History Household Members: None Housing: House Are you a primary small animal caretaker to a significant other at home: No Do you presently have visiting nurse or other home services: No Alcohol intake: current Alcohol intake frequency: holidays/special occasions only Patient Tobacco Use Status: Former Tobacco user Tobacco use type: Cigarette e-Cigarette/Vaping Use: Never Used Second Hand Smoke Exposure: No Use of substances other than those prescribed or required for medical reasons: No Have you been hit, kicked, punched, or otherwise hurt by someone within the past year? 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 Lungs entry equal no rales. Heart S1-S2 heard no gallop or rub. Abdomen soft nontender. Neuro alert awake oriented. No asterixis. Extremities no edema. Results Reviewed Nephrology Results: Hgb 11.0 g/dl (14.0-18.0) L 10/28/24 WBC 9.7 X10*3/uL (4.8-10.8) 10/28/24 Plt Count 259 X10*3/uL (160-400) 10/28/24 Sodium 137 mmol/L (135-145) 10/28/24 Potassium 5.1 mmol/L (3.3-5.1) 10/28/24 Chloride 110 mmol/L (96-108) H 10/28/24 Carbon Dioxide 21 mmol/L (22-29) L 10/28/24 BUN 72 mg/dL (9-16) H 10/28/24 Creatinine 2.90 mg/dL (0.5-1.4) H 10/28/24 Calcium 9.0 mg/dL (8.4-10.2) 10/28/24 Urine Protein 30 (1+) mg/dL (Neg-Trace) H 10/19/24 Urine Creatinine 80.49 mg/dL 10/19/24 Protein/Creatinin Ratio 0.26 (<0.2) H 10/19/24 Renal US 10/18/24 Assessment & Plan Assessment & Plan (1) GORDON (acute kidney injury): Code(s): N17.9 - Acute kidney failure, unspecified Category: Medical (2) Adrenal insufficiency: Code(s): E27.40 - Unspecified adrenocortical insufficiency Category: Medical (3) CKD stage 3b, GFR 30-44 ml/min: Code(s): N18.32 - Chronic kidney disease, stage 3b Category: Medical (4) Invasive carcinoma of urinary bladder: Code(s): C67.9 - Malignant neoplasm of bladder, unspecified Category: Medical Plan 62-year-old man with invasive bladder carcinoma. 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 He has sustained superimposed GORDON most likely due to check point inhibitors. Serum creatinine peaked at 3.8 and has subsequently decreased to 2.9. Baseline creatinine is around 2.0. At this point he has no signs or symptoms of uremia. Fluid status is optimal. I would hold off on Pembrolizumab until renal function returns to baseline. Hypertension blood pressure is suboptimal Increased amlodipine from 2.5 mg to 5 mg a day. Adrenal insufficiency currently on prednisone and is being managed by Dr. Brady. Medications: Changed From amlodipine 2.5 mg PO DAILY 90 tabs 3RF To amlodipine 5 mg PO DAILY 30 tabs 3RF Coding Level of Care Code Est Pt Level 4 (78783) Diagnoses GORDON (acute kidney injury) N17.9 Adrenal insufficiency E27.40 CKD stage 3b, GFR 30-44 ml/min N18.32 Invasive carcinoma of urinary bladder C67.9
[2024-10-28 14:46] VITALS: BP 156/100; PULSE 86; O2SAT 99; BMI 33.9
== END 2024-10-28 15:04 | disposition home or self-care (01) ==
PROVIDERS: PCP Internal Medicine; Visit Provider Internal Medicine Hypertension Specialist
DX: N17.9 Acute kidney failure, unspecified (principal); E27.40 Unspecified adrenocortical insufficiency; N18.32 Chronic kidney disease, stage 3b; C67.9 Malignant neoplasm of bladder, unspecified
CPT/HCPCS: 99214

== ENCOUNTER 2024-10-29 10:47 | Outpatient (AMB) | payer MEDICARE, OTHER, SELFPAY ==
--- NOTE | 2024-10-29 11:13 | A.OFFPC_ITS ---
Vital Signs 10/29/24 11:15 Height 6 ft 2 in Weight 263 lb 4 oz BMI 33.8 BP 146/92 H Blood Pressure Location Lt brachial Position Sitting Pulse 94 Pulse Source Pulse Oximeter Pulse Oximetry (%) 98 Oxygen Delivery Method Room Air Intake Visit Reasons: Discharged 10/21/24- Infection on Rt. Thigh/HighBP Intake Note: Patient is here to follow-up after a visit the emergency department at [facility] [place] on 10/18/24 Training Professional Required: No Biotech Production Specialist: Not Required per policy Accompanied by: Self / Same As Patient Allergies No Known Allergies [No Known Allergies*] Allergy (Verified 10/29/24 11:14) Medication List - Last Reconciled 10/29/24 by Morris Rizzo MD amlodipine 5 mg PO DAILY atorvastatin 20 mg PO BEDTIME 90 days levothyroxine 100 mcg PO DAILY@1300 needle (disp) 18 G (BD Regular Bevel [place]) As directed to draw hydrocortisone in case of emergency omeprazole magnesium (Prilosec OTC) 20 mg PO DAILY ondansetron 8 mg PO Q8H PRN prednisone 100 mg (5 x 20 mg) PO DAILY syringe with needle (BD Luer-Shiv Syringe) As directed to be used to inject hydrocortisone in case of emergency Tobacco use date assessed: 10/29/24 Fall risk assessment: No Falls in past year Last assessed Fall Risk: 10/29/24 Dental Screening Dental Screen Date: 10/29/24 Did you have a dental visit in the last 12 months?: Yes Did you have a dental problem in the last 6 months where you did not have access to dental care?: No Was dental information given to patient?: Patient has dentist HPI Discharged 10/21/24- Infection on Rt. Thigh/HighBP HPI Details HTN on Rx; doing well; seeing oncology for his tumor and doing well PFSH Medical History History of immune checkpoint inhibitor therapy Hypophysitis Adrenal insufficiency Hypothyroidism Port-A-Cath in place (02/16/24) History of blood transfusion Bladder cancer Obesity (BMI 30-39.9) Pure hypercholesterolemia Hyperlipemia Carpal tunnel syndrome Surgical History Mass of left axilla (05/31/24) Hx of colonoscopy Hx of cystoscopy History of surgery History of hand surgery History of ankle surgery History of cholecystectomy Family History Father Multiple sclerosis, primary progressive Mother No problems noted. Sister In good health Son In good health Daughter In good health Social History Household Members: None Housing: House Are you a primary long term care pharmacist to a significant other at home: No Do you presently have visiting nurse or other home services: No Alcohol intake: current Alcohol intake frequency: holidays/special occasions only Patient Tobacco Use Status: Former Tobacco user Tobacco use type: Cigarette e-Cigarette/Vaping Use: Never Used Second Hand Smoke Exposure: Yes Use of substances other than those prescribed or required for medical reasons: No Have you been hit, kicked, punched, or otherwise hurt by someone within the past year? 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 1. Little interest or pleasure in doing things: not at all 2. Feeling down, depressed, or hopeless: not at all 3. Trouble falling or staying asleep, or sleeping too much: not at all 4. Feeling tired or having little energy: not at all 5. Poor appetite or overeating: not at all 6. Feeling bad about yourself - or that you are a failure or have let yourself or your family down: not at all 7. Trouble concentrating on things, such as reading the newspaper or watching television: not at all 8. Moving or speaking so slowly that other people could have noticed. Or the opposite - being so fidgety or restless that you have been moving around a lot more than usual: not at all 9. Thoughts that you would be better off or of hurting yourself in some way: not at all Total score: 0 Depression Screening Interpretation: Negative Depression Screening Done: Yes Source: Developed by Drs. Brady Becerra, Remy Carranza and colleagues, with an educational holly from [employer]. Thrive Questionnaire Date Thrive assessed: 10/29/24 I am a: Patient What is your living situation today?: I have a steady place to live Within the past 12 months, did the food you bought not last and you didn't have the money to get more?: Never true Within the past 12 months, did you worry whether your food would run out before you got money to buy more?: Never true Do you have trouble paying for medicines?: No Do you have trouble getting transportation to medical appointments?: No Do you have trouble paying your heating and electricity bill?: No Do you have trouble taking care of your child, family member or friend?: No Do you have trouble with day-to-day activities such as bathing, preparing meals, shopping, managing finances, etc.?: No Are you currently unemployed and looking for a job?: No Are you interested in more education?: No Currently or been in a relationship where the following occur: No concerns reported THRIVE Score: 0 AUDIT C Alcohol Use Questionnaire (AUDIT-C) 1. How often do you have a drink containing alcohol?: Never Total Score: 0 RANDY-7 AMB Questionnaire RANDY-7 Date RANDY - 7 assessed: 10/29/24 Feeling nervous, anxious, or on edge: 0 = Not at all Not being able to stop or control worryin = Not at all Worrying too much about different things: 0 = Not at all Trouble relaxin = Not at all Being so restless that it is hard to sit still: 0 = Not at all Becoming easily annoyed or irritable: 0 = Not at all Feeling afraid as if something awful might happen: 0 = Not at all Total RANDY-7 score (0-4 normal; 5-9 mild; 10-14 moderate; 15-21 severe): 0 Source: Developed by Drs. Brady Becerra, Remy Carranza and colleagues, with an educational holly from [employer]. Review of Systems Const Denies chills, Denies headache(s) and Denies weight loss ENT Denies headache(s) Card Denies chest pain, Denies syncope, Denies irregular heart rhythm and Denies dyspnea Resp Denies chest congestion, Denies cough and Denies dyspnea GI Denies abdominal pain, Denies change in stool character, Denies nausea and Denies vomiting Musc Denies deformity and Denies joint swelling Neuro Denies syncope and Denies headache(s) Physical exam (Primary Care) Vital Signs: Last Vital Signs Pulse 94 10/29/24 11:15 BP 146/92 H 10/29/24 11:15 Pulse Ox 98 10/29/24 11:15 Oxygen Delivery Method Room Air 10/29/24 11:15 BMI result Body Mass Index 33.8 Tobacco/Smoking Status: Tobacco use Status Tobacco use date assessed 10/29/24 10/29/24 11:19 Patient Tobacco Use Status Former Tobacco user 10/29/24 11:19 Tobacco use type Cigarette 10/29/24 11:19 e-Cigarette/Vaping Use Never Used 10/29/24 11:19 PHQ-9: PHQ-9 Score PHQ-9: Total score 0 10/29/24 11:19 Depression Screening Interpretation: Negative Thrive Assessment: Date of Thrive Assessment Date Thrive assessed 10/29/24 10/29/24 11:19 Currently or been in a relationship where the following occur: No concerns reported Const General: cooperative, comfortable, no acute distress and alert Neck Neck: Yes no lymphadenopathy Thyroid: Thyroid normal Resp Effort & Inspection: normal respiratory effort Auscultation: clear to auscultation bilaterally Percussion: percussion normal Cardio Jugular venous distension: no JVD Palpation: normal PMI Rate: regular rate Rhythm: regular rhythm Heart sounds: S1 normal heart sound present and S2 normal heart sound present GI Inspection: Yes normal to inspection Palpation (GI): No hepatosplenomegaly present Skin General skin exam: no rashes or lesions noted Extrem General: Yes no clubbing, cyanosis or edema Coding Level of Care Code Est Pt Level 3 (30990) Diagnoses Hypertension I10 Assessment & Plan Assessment & Plan (1) Hypertension: Code(s): I10 - Essential (primary) hypertension Category: Medical Plan: stable; same rx
[2024-10-29 11:15] VITALS: BP 146/92; PULSE 94; O2SAT 98; BMI 33.8
--- OUTSIDE RECORDS SUMMARY | 2024-10-29 12:01 | XMS_ITS | Patient Health Record ---
Author Organization [facility] Address [address] [place] [address] Care Team Providers Care Necktie Maker Name Role Phone So MCALLISTER, Primary Care Provider Unavaila yaquelin Arevalo Jose Unavailable [phone] Eamon MCALLISTER, Zamzam Unavailable Unavailable REASON FOR [...] Problem Epigastric abdominal pain (R10.13) Active confirmed [id number] Problem Encounter for screening for malignant neoplasm of colon (Z12.11) Active confirmed [id number] Problem Preprocedural examination (Z01.818) Active confirmed [id number] Problem Colon cancer screening (Z12.11) Active confirmed Colon cancer screening (217282333) Encounters Encounter Location Date Provider Diagnosis [facility] [place] [address] [place] [phone] [place]/03/2024 Jose Arevalo [facility] [address] [place] [phone] 04/23/2024 Jose Arevalo Colon cancer screening Z12.11 [facility] [address] [place] [phone] 05/27/2024 Jose Irina [facility] [address] [place] [phone] 05/30/2024 Jose Arevalo ASSESSMENTS Encounter Date Diagnosis [...] Date MEDICARE OF [place] [address] [place] [address] [id number] JOSE CUBA Self - patient is the insured [employer] [address] [place] [address] [id number] JOSE CUBA Self - patient is the insured MEDICAL (GENERAL) HISTORY Medical History History ICD Code Denies DC,DM,CVA,Lung disease,renal dise ase Hyperlipidemia Screening colonoscopy in Mar with Dr. Johansen revealed only hyperplastic polyps. EGD in 08/2017-small HH, normal duodenal and gastric biopsies Surgical History Surgery Date(Month/Year) Lap cholecystectomy--acalculous cholecys titis-Dr. Knutson 05/2017 Finger- infection drained 1969
--- OUTSIDE RECORDS SUMMARY | 2024-10-29 12:01 | XMS_ITS ---
Author Organization [facility] Address [address] [place] [address] Care Team Providers Care Media Account Executive Name Role Phone So MCALLISTER, Primary Care Provider Unavaila Jose Doty Unavailable [phone] Eamon MCALLISTER, Zamzam Unavailable Unavailable REASON FOR VISIT CANCEL PROCEDURE Encounters Encounter Location Date Provider Diagnosis [facility] [address] [place] [address] 05/30/2024 Jose Arevalo PLAN OF TREATMENT No Information
--- OUTSIDE RECORDS SUMMARY | 2024-10-29 12:01 | XMS_ITS ---
Author Organization [facility] Address [address] [place] [address] Care Team Providers Care Investment Officer Name Role Phone So MCALLISTER, Primary Care Provider Unavaila Jose Doty Unavailable [phone] Eamon MCALLISTER, Zamzam Unavailable Unavailable REASON FOR VISIT colonoscopy Encounters Encounter Location Date Provider Diagnosis [facility] [address] [place] [address] 05/27/2024 Jose Arevalo PLAN OF TREATMENT No Information
--- OUTSIDE RECORDS SUMMARY | 2024-10-29 12:01 | XMS_ITS ---
Author Organization [facility] Address [address] [place] [address] Care Team Providers Care It Sales Representative Name Role Phone So MCALLISTER, Primary Care Provider Unavaila Jose Doty Unavailable [phone] Eamon MCALLISTER, Zamzam Lindsay Unavailable REASON FOR VISIT colon screening Encounters Encounter Location Date Provider Diagnosis [facility] [place] [address] [place], [place] [phone] 06/03/2024 Jose Arevalo PLAN OF TREATMENT No Information
== END 2024-10-29 11:37 | disposition home or self-care (01) ==
PROVIDERS: PCP Internal Medicine; Visit Provider Internal Medicine
DX: I10 Essential (primary) hypertension (principal)

== ENCOUNTER → 2024-10-29 10:47 | Outpatient (BNVA) | payer MEDICARE, OTHER, SELFPAY | PROVIDERS: PCP Internal Medicine; Visit Provider Internal Medicine | DX: I10 Essential (primary) hypertension (principal) | CPT/HCPCS: 96127; 99212 ==

== ENCOUNTER 2024-10-31 15:30 | Outpatient (AMB) | payer MEDICARE, OTHER, SELFPAY ==
--- NOTE | 2024-10-31 15:44 | A.OFFVIS_ITS ---
Intake Visit Reasons: GORDON/UTI/Bladder Ca Intake Note: Patient is present for GORDON/UTI/BLADDER CA Urology Medication:NONE Antibiotic Allergy:NONE Blood Thinner:NONE Hand Binder Stripper Required: No Allergies No Known Allergies [No Known Allergies*] Allergy (Verified 10/31/24 15:44) [facility] Medical History History of immune checkpoint inhibitor therapy Hypophysitis Adrenal insufficiency Hypothyroidism Port-A-Cath in place (02/16/24) History of blood transfusion Bladder cancer Obesity (BMI 30-39.9) Pure hypercholesterolemia Hyperlipemia Carpal tunnel syndrome Surgical History Mass of left axilla (05/31/24) Hx of colonoscopy Hx of cystoscopy History of surgery History of hand surgery History of ankle surgery History of cholecystectomy Family History Father Multiple sclerosis, primary progressive Mother No problems noted. 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
--- OUTSIDE RECORDS SUMMARY | 2024-10-31 16:55 | XMS_ITS ---
Author Organization [facility] Address [address] [place] [address] Care Team Providers Care Transmission Design Engineer Name Role Phone So MCALLISTER, Primary Care Provider Unavaila Jose Doty Unavailable [phone] Eamon MCALLISTER, Zamzam Unavailable Unavailable REASON FOR VISIT CANCEL PROCEDURE Encounters Encounter Location Date Provider Diagnosis [facility] [address] [place] [address] 05/30/2024 Jose Arevalo PLAN OF TREATMENT No Information
--- OUTSIDE RECORDS SUMMARY | 2024-10-31 16:55 | XMS_ITS | Patient Health Record ---
Author Organization [facility] Address [address] [place] [address] Care Team Providers Care Documentation Specialist Name Role Phone So MCALLISTER, Primary Care Provider Unavaila yaquelin Arevalo Jose Unavailable [phone] Eamon MCALLISTER, Zamzam Unavailable Unavailable REASON FOR [...] Problem Epigastric abdominal pain (R10.13) Active confirmed [id number] Problem Encounter for screening for malignant neoplasm of colon (Z12.11) Active confirmed 462823908 Problem Preprocedural examination (Z01.818) Active confirmed [id number] Problem Colon cancer screening (Z12.11) Active confirmed Colon cancer screening (985987930) Encounters Encounter Location Date Provider Diagnosis [facility] [place] [address] [place], [place] [phone] 06/03/[address] [facility] [address] [place] [address] 04/23/2024 Jose Arevalo Colon cancer screening Z12.11 [facility] [address] [place] [phone] 05/27/[address] [facility] [address] [place] [phone] 05/30/2024 Jose Arevalo ASSESSMENTS Encounter Date Diagnosis [...] Date MEDICARE OF [place] [address] [facility] [place] [address] [id number] JOSE CUBA Self - patient is the insured [employer] [address] [place] [address] [id number] JOSE CUBA Self - patient is the insured MEDICAL (GENERAL) HISTORY Medical History History ICD Code Denies [place],DM,CVA,Lung disease,renal dise ase Hyperlipidemia Screening colonoscopy in Mar with Dr. Johansen revealed only hyperplastic polyps. EGD in 08/2017-small HH, normal duodenal and gastric biopsies Surgical History Surgery Date(Month/Year) Lap cholecystectomy--acalculous cholecys titis-Dr. Knutson 05/2017 Finger- infection drained 1969
--- OUTSIDE RECORDS SUMMARY | 2024-10-31 16:55 | XMS_ITS ---
Author Organization [facility] Address [address] [place] [address] Care Team Providers Care Shoulder Sawyer Name Role Phone So MCALLISTER, Primary Care Provider Unavaila Jose Doty Unavailable [phone] Eamon MCALLISTER, Zamzam Unavailable Unavailable REASON FOR VISIT colonoscopy Encounters Encounter Location Date Provider Diagnosis [facility] [address] [place] [address] 05/27/2024 Jose Arevalo PLAN OF TREATMENT No Information
--- OUTSIDE RECORDS SUMMARY | 2024-10-31 16:55 | XMS_ITS ---
Author Organization [facility] Address [address] [place] [address] Care Team Providers Care Staff Rn Name Role Phone So MCALLISTER, Primary Care Provider Unavaila Jose Doty Unavailable [phone] Eamon MCALLISTER, Zamzam Lindsay Unavailable REASON FOR VISIT colon screening Encounters Encounter Location Date Provider [place] [facility] [place] [address] [place] [id number] 06/03/2024 Jose Arevalo PLAN OF TREATMENT No Information
== END 2024-10-31 16:29 | disposition home or self-care (01) ==
PROVIDERS: PCP Internal Medicine; Visit Provider Urology
DX: Z13.9 Encounter for screening, unspecified (principal)

== ENCOUNTER → 2024-10-31 15:30 | Outpatient (BNVA) | payer MEDICARE, OTHER, SELFPAY | PROVIDERS: PCP Internal Medicine; Visit Provider Urology | DX: N13.30 Unspecified hydronephrosis (principal); N18.32 Chronic kidney disease, stage 3b; C67.9 Malignant neoplasm of bladder, unspecified | CPT/HCPCS: 81003; 99212 ==

== ENCOUNTER 2024-11-01 10:56 | Outpatient (REF) | payer MEDICARE, OTHER, SELFPAY ==
--- OUTSIDE RECORDS SUMMARY | 2024-11-01 11:04 | XMS_ITS | Patient Health Record ---
Author Organization [facility] Address [address] [place] [address] Care Team Providers Care Consulting Solution Manager Name Role Phone So MCALLISTER, Primary Care Provider Unavaila yaquelin Arevalo Jose Unavailable [phone] Eamon MCALLISTER, Zamzam Unavailable Unavailable REASON FOR [...] Problem Epigastric abdominal pain (R10.13) Active confirmed [id number] Problem Encounter for screening for malignant neoplasm of colon (Z12.11) Active confirmed [id number] Problem Preprocedural examination (Z01.818) Active confirmed [id number] Problem Colon cancer screening (Z12.11) Active confirmed Colon cancer screening (945261119) Encounters Encounter Location Date Provider Diagnosis [facility] [place] [address] [place], [place] [id number] 06/03/2024 Jose Arevalo [facility] [address] [place] [address] 04/23/2024 Jose Arevalo Colon cancer screening Z12.11 [facility] [address] [place] [address] 05/27/2024 Jose Irina [facility] [address] [place] [address] 05/30/2024 Jose Arevalo ASSESSMENTS Encounter Date Diagnosis [...] MEDICARE OF [place] [address] [facility] [place] [address] [phone] [id number] JOSE CUBA Self - patient is the insured [employer] [address] [place] [address] [id number] JOSE CUBA Self - patient is the insured MEDICAL (GENERAL) HISTORY Medical History History ICD Code Denies CT,DM,CVA,Lung disease,renal dise ase Hyperlipidemia Screening colonoscopy in [place] with Dr. Johansen revealed only hyperplastic polyps. EGD in 08/2017-small HH, normal duodenal and gastric biopsies Surgical History Surgery Date(Month/Year) Lap cholecystectomy--acalculous cholecys titis-Dr. Knutson 05/2017 Finger- infection drained 1969
--- OUTSIDE RECORDS SUMMARY | 2024-11-01 11:04 | XMS_ITS ---
Author Organization [facility] Address [address] [place] [address] Care Team Providers Care Flight Agent Name Role Phone So MCALLISTER, Primary Care Provider Unavaila Jose Doty Unavailable [phone] Eamon MCALLISTER, Zamzam Unavailable Unavailable REASON FOR VISIT colonoscopy Encounters Encounter Location Date Provider Diagnosis [facility] [address] [place] [address] 05/27/2024 Jose Arevalo PLAN OF TREATMENT No Information
--- OUTSIDE RECORDS SUMMARY | 2024-11-01 11:04 | XMS_ITS ---
Author Organization [facility] Address [address] [place] [address] Care Team Providers Care Insurance Customer Service Specialist Name Role Phone So MCALLISTER, Primary Care Provider Unavaila Jose Doty Unavailable [phone] Eamon MCALLISTER, Zamzam Unavailable Unavailable REASON FOR VISIT CANCEL PROCEDURE Encounters Encounter Location Date Provider Diagnosis [facility] [address] [place] [address] 05/30/2024 Jose Arevalo PLAN OF TREATMENT No Information
[2024-11-01 11:12] LABS: Hematocrit 36.5 % (42.0-52.0); Mean Corpuscular HGB Conc 32.9 g/dl (31.0-36.0); Mean Corpuscular Hemoglobin 32.2 pg (27.0-33.0); Mean Corpuscular Volume 97.9 fL (80.0-98.0); Mean Platelet Volume 9.3 fL (9.4-12.4); NRBC Pct Auto 0.2 /100WBC (0.0-0.2); Platelet Count 181 X10*3/uL (160-400); Red Blood Count 3.73 X10*6/uL (4.60-5.80); Red Cell Distribution Width 17.8 % (11.0-16.0); White Blood Count 8.8 X10*3/uL (4.8-10.8)
[2024-11-01 11:49] LABS: Alanine Aminotransferase 22 U/L (0-40); Albumin Level 3.9 g/dL (3.5-5.0); Alkaline Phosphatase 72 U/L (39-117); Anion Gap 12 (12-20); Aspartate Amino Transferase 28 U/L (5-37); Bilirubin Total 0.4 mg/dL (0.0-1.0); Blood Urea Nitrogen 66 mg/dL (9-16); Calcium 9.3 mg/dL (8.4-10.2); Carbon Dioxide 24 mmol/L (22-29); Chloride 110 mmol/L (96-108); Estimated Glomerular Filt Rate 27; Glucose Random 123 mg/dL (60-115); Potassium 5.2 mmol/L (3.3-5.1); Sodium 141 mmol/L (135-145)
[2024-11-01 11:57] LABS: Thyroid Stimulating Hormone 7.94 uIU/mL (0.32-4.0)
[2024-11-01 11:59] LABS: Band Neutrophils Percent 2 % (3-5); Lymphocytes Absolute Manual 0.5 X10*3/uL (1.2-4.9); Lymphocytes Percent Manual 6 % (20-40); Metamyelocytes Absolute 0.3 X10*3/uL; Metamyelocytes Percent 3 %; Monocytes Absolute Manual 0.2 X10*3/uL (0.1-1.2); Monocytes Percent Manual 2 % (2-11); Neutrophils Absolute Manual 7.8 X10*3/uL (2.0-8.3); Neutrophils Percent Manual 87 % (45-73)
[2024-11-01 12:00] LABS: Platelet Estimate NORMAL (NORMAL); Platelet Morphology Comment NORMAL; RBC Morphology NORMAL
== END 2024-11-01 10:57 | disposition home or self-care (01) ==
LOC: HO.LAB 10:56
PROVIDERS: PCP Internal Medicine; Visit Provider Internal Medicine
DX: C67.9 Malignant neoplasm of bladder, unspecified (principal)
CPT/HCPCS: 36415; 80053; 84443; 85007; 85027

== ENCOUNTER 2024-11-08 09:08 | Outpatient (REF) | payer MEDICARE, OTHER, SELFPAY ==
[2024-11-08 09:25] LABS: MANUAL DIFF FLAG NO
[2024-11-08 09:33] LABS: Basophils Percent Auto 0.2 % (0-2); Hemoglobin 12.2 g/dl (14.0-18.0); Imm Gran Abs Auto 0.22 X10*3/uL (0.00-0.03); Imm Gran Pct Auto 2.3 % (0.0-0.4); Lymphocytes Absolute Auto 0.3 X10*3/uL (1.2-4.9); Lymphocytes Percent Auto 3.4 % (20-40); Mean Corpuscular Hemoglobin 32.4 pg (27.0-33.0); Mean Corpuscular Volume 98.4 fL (80.0-98.0); Mean Platelet Volume 9.9 fL (9.4-12.4); Monocytes Absolute Auto 0.5 X10*3/uL (0.1-1.2); Monocytes Percent Auto 5.7 % (2-11); Neutrophils Absolute Auto 8.4 x10*3/uL (2.0-8.3); Neutrophils Percent Auto 88.4 % (45-73); Red Blood Count 3.76 X10*6/uL (4.60-5.80); Red Cell Distribution Width 17.6 % (11.0-16.0); White Blood Count 9.5 X10*3/uL (4.8-10.8)
[2024-11-08 09:35] LABS: Platelet Count 125 X10*3/uL (160-400)
[2024-11-08 09:50] LABS: Alanine Aminotransferase 32 U/L (0-40); Albumin Level 3.7 g/dL (3.5-5.0); Alkaline Phosphatase 74 U/L (39-117); Anion Gap 10 (12-20); Aspartate Amino Transferase 59 U/L (5-37); Bilirubin Total 0.3 mg/dL (0.0-1.0); Blood Urea Nitrogen 72 mg/dL (9-16); Carbon Dioxide 24 mmol/L (22-29); Chloride 112 mmol/L (96-108); Estimated Glomerular Filt Rate 29; Glucose Random 90 mg/dL (60-115); Potassium 5.3 mmol/L (3.3-5.1); Sodium 141 mmol/L (135-145); Total Protein 6.9 g/dL (6.5-8.0)
[2024-11-08 10:04] LABS: Thyroid Stimulating Hormone 6.61 uIU/mL (0.32-4.0)
== END 2024-11-08 09:09 | disposition home or self-care (01) ==
LOC: HO.LAB 09:08
PROVIDERS: PCP Internal Medicine; Visit Provider Internal Medicine
DX: C67.9 Malignant neoplasm of bladder, unspecified (principal)
CPT/HCPCS: 36415; 80053; 84443; 85025

== ENCOUNTER 2024-11-18 07:40 | Outpatient (REF) | payer MEDICARE, OTHER, SELFPAY ==
--- OUTSIDE RECORDS SUMMARY | 2024-11-18 07:43 | XMS_ITS | Clinical Summary ---
Author Organization [facility] Address [address] [place] [address] Care Team Providers Care Manager Sign Name Role Phone Morris Rizzo Primary Care Provider [phone] Allergies No known active allergies Medications atorvastatin (LIPITOR) 20 mg tablet Take 20 mg by mouth once a day. 4 Active dexAMETHasone (DECADRON) 2 mg tablet Take 2 mg by mouth daily as needed. 4 Active tamsulosin (FLOMAX) 0.4 mg capsule Take 0.4 mg by mouth once a day. 4 Active phenazopyridine (PYRIDIUM) 200 mg tablet Take 200 mg by mouth. 4 Active ondansetron ODT (ZOFRAN ODT) 8 mg disintegrating tablet Dissolve 8 mg in the mouth every 8 hours as needed. 4 Active Active Problems Problem Noted Date Diagnosed Date Hyperkalemia 05/30/2024 Malignant neoplasm of overlapping sites of bladd er 03/04/2024 Other hydronephrosis 03/04/2024 Family History Relation Name Status Comments Father Mother Social History Tobacco Use Types Packs/Day Years Used Date Smoking Tobacco: Former Cigarettes 1 33 1 2011 Smokeless Tobacco: Former Tobacco Cessation:Counseling Given: Not Answered Comments:On and off 2859-3166 smoking, at most 1 PPD Alcohol Use Standard Drinks/Week Comments Yes 0 (1 standard drink = 0.6 oz pur e alcohol) rare, few times per year Sex and Gender Information Value Date Recorded Sex Assigned at Male 05/20/2024 7:13 PM EDT Legal Sex Male 10:49 AM EDT Gender Identity Male 05/20/2024 7:13 PM EDT Sexual Orientation Straight 05/20/2024 7: 13 PM EDT Last Filed Vital Signs Vital Sign Reading Time Taken Comments Blood Pressure 150/83 05/30/2024 2:01 PM EDT Pulse 82 05/30/2024 2:01 PM EDT Temperature 37.1 ??C (98.8 ??F) 05/27/2024 7:31 AM ED T Respiratory Rate 16 05/27/2024 7:31 AM EDT Oxygen Saturation 98% 05/27/2024 7:31 AM EDT Inhaled Oxygen Concentration - - Weight 114.3 kg (252 lb) 05/27/2024 7:31 AM EDT Height 185.4 cm (6' 1 ) 05/27/2024 7:31 AM EDT Body Mass Index 33.25 05/27/2024 7:31 AM EDT Plan of Treatment Health Maintenance Due Date Last Done Comments Cologuard 1960 Colon Cancer Screening 1960 Colonoscopy 1960 FOBT / Fit Test 1960 Hepatitis C Screening 1960 Sigmoidoscopy 1960 Pneumococcal Vaccine: 65+ Ye ars (1 of 2 - PCV) 1964 Zoster Vaccines (1 of 2) 1977 Hepatitis B Vaccines (3 of 3 - 19+ 3-dose series) 10/20/2001 08/25/2001, 03/31/2001, 03/10/2001 DTaP,Tdap,and Td Vaccines (3 - Td or Tdap) 05/12/2021 05/12/2011, 08/25/2007, 03/03/1999, Additional history exists Abdominal Aortic Aneurysm (A AA) Screening 2023 COVID-19 Vaccine (6 - 2023-2 5 season) 2024 08/03/2023, 08/10/2022, 10/06/2021, Additional history exists Influenza Vaccine (#1) 2024 , 08/10/2022, 10/06/2021, Additional history exists Alcohol/Substance Use Screening 10/23/2024 Depression Screening and Follow-Up 10/23/2024 Fall Risk Screening 10/23/2024 Health Care Proxy Review 10/23/2024 Social Drivers of Health Yecenia ual Screening 10/23/2024 CT Lung Cancer Screening (Baseline) 01/22/2025 01/23/2024 RSV Vaccine (60+ years old a nd patients) Completed 08/03/2023 Procedures * Due to [place] [employer] law, this organization might not be sharing negative HIV tests. Procedure Name Priority Date/Time Associated Diagnosis Comments AMB EXTERNAL CT CHEST, OUTSI DE RESULT 01/23/2024 from Last 3 Months or Most Recently Relevant to Health Maintenance Results * Due to [place] [employer] law, this organization might not be sharing negative HIV tests. * AMB EXTERNAL CT CHEST, OUTSIDE RESULT (01/23/2024) Anatomical Region Laterality Modality Other [facility]/23/2024 [facility] EXTERNAL RESULT PROCEDURE S Final Result from Last 3 Months or Most Recently Relevant to Health Maintenance Insurance MEDICARE FOR LIFE Advance Directives Documents on File Type Date Recorded Patient Accuracy Expert Expl velasquez Health Care Proxy 05/27/2024 7:26 AM Care Teams Manager Sign Relationship Specialty Start Date End Date Morris Rizzo [address] [place] [address] Dr Raymond, [place] [address] PCP - General Internal Medicine 01/09/24
--- OUTSIDE RECORDS SUMMARY | 2024-11-18 07:43 | XMS_ITS | Encounter Summary ---
Author Organization [facility] Address [address] [place] [address] Care Team Providers Care Wall Mirror Department Supervisor Name Role Phone Morris Rizzo Primary Care Provider [phone] Encounter Details Date Type Department Care Team (Late st Contact Info) Description 04/15/2024 Orders Only [facility] ACC Building Mammography [address] [facility], 5th [place] [address] Shola Arroyo MD [address] [place] [address] Social History Tobacco Use Types Packs/Day Years Used Date Smoking Tobacco: Never Assessed Sex and Gender Information Value Date Recorded Sex Assigned at Male 05/20/2024 7:13 PM EDT Legal Sex Male 10:49 AM EDT Gender Identity Male 05/20/2024 7:13 PM EDT Sexual Orientation Straight 05/20/2024 7: 13 PM EDT documented as of this encounter Plan of Treatment Not on file documented as of this encounter Visit Diagnoses Not on filedocumented in this encounter Care Teams Wall Mirror Department Supervisor Relationship Specialty Start Date End Date Morris Rizzo [address] [place] [address] [place] [address] PCP - General Internal Medicine 01/09/24 documented as of this encounter
--- OUTSIDE RECORDS SUMMARY | 2024-11-18 07:43 | XMS_ITS | Clinical Summary ---
Author Organization [facility] Address [address] [place] [address] Phone Care Team Providers Care Bus Attendant Name Role Phone Morris Rizzo MD Primary Care Provider [phone] Social History Tobacco Use Types Packs/Day Years Used Date Smoking Tobacco: Never Assessed Sex and Gender Information Value Date Recorded Sex Assigned at Not on file Gender Identity Not on file Sexual Orientation Not on file Plan of Treatment Health Maintenance Due Date Last Done Comments DTaP,Tdap,and Td Vaccines (1 - Tdap) 1977 Zoster Vaccines (1 of 2) 2008 Abdominal Aortic Aneurysm (A AA) Screen 09/24/2022 Cholesterol Screening (Lipid Panel) 09/24/2022 Colorectal Cancer Screening: Colonoscopy 09/24/2022 Depression Screening 09/24/2022 Hepatitis C Screening 09/24/2022 Social Influencers of Health Screening 09/24/2022 Falls Risk Assessment 2023 Pneumococcal Vaccine: 65+ Ye ars (1 of 1 - PCV) 2023 COVID-19 Vaccine ( - 2023-2 5 season) 2024 Influenza Vaccine (#1) 2024 RSV Immunization Patients 60 + Years Old (1 - 1-dose 75+ series) 2033 HIB Vaccines Aged Out No longer eligi ble based on patient's age to complete this topic HPV Vaccines Aged Out No longer eligi ble based on patient's age to complete this topic Hepatitis A Vaccines Aged Out No long er eligible based on patient's age to complete this topic Hepatitis B Vaccines Aged Out No long er eligible based on patient's age to complete this topic IPV Vaccines Aged Out No longer eligi ble based on patient's age to complete this topic MMR Vaccines Aged Out No longer eligi ble based on patient's age to complete this topic Meningococcal ACWY Vaccine Aged Out N o longer eligible based on patient's age to complete this topic RSV Immunization Patients Un pastora 20 months Aged Out No longer eligible b ased on patient's age to complete this topic Varicella Vaccines Aged Out No longer eligible based on patient's age to complete this topic Procedures Procedure Name Priority Date/Time Associated Diagnosis Comments CT LUNG SCREENING LOW DOSE Routine 08/19/2024 6:31 AM EDT Personal history of nicotine dependence from Last 3 Months Results * CT LUNG SCREENING LOW DOSE (08/19/2024 6:31 AM EDT) Anatomical Region Laterality Modality Computed Tomogra phy 08/17/2024 7:23 AM EDT Narrative 08/19/2024 6:31 AM EDT [facility] Diagnostic Imaging Department [address] [place] [address] Patient: ??JOSE LAMBERT ?/Age/Sex: 1960 - 63 - M Unit#: ??[id number] ? Location/Status: ??SPDICATLS/REG CLI ? Mnemonic/Ordering Site: ??CTLUNGLD/SPCT Ordering Physician: ??SUYAPA WEST MD CT Lung Screening Low Dose - 08/17/24 - 0729 Report Status:Signed Indication: Greater than 20 total pack-year smoking history, asymptomatic former smoker Technique: Low-dose CT scan of the chest obtained as a lung cancer screening study. Multiplanar reformatted images were obtained. ??Dose reduction technique: ASIR (Adaptive statistical iterative reconstruction) and/or AEC (automated exposure control) DLP: ??119.43 mGy-cm COMPARISON: Multiple priors, the most recent dated June 2023. FINDINGS: Lack of intravenous contrast limits evaluation of the natanael, vascular structures and visualized abdominal viscera. ??Scan sensitivity degraded due to motion. Lungs/airways: Trachea and central airways are patent. ??Emphysematous changes. Atelectasis in the left lower lobe. Few scattered sub-5 mm pulmonary nodules, similar to prior. Base of the neck, mediastinum, heart, chest wall, vessels: ??The assessment of hilar lymphadenopathy is difficult without the use of IV contrast. ??Right-sided Port-A-Cath with tip in the distal SVC. ??No enlarged mediastinal lymph nodes. Ascending thoracic aorta measures 4.0 cm at the level of the pulmonary trunk; similar to prior. ??Coronary artery calcifications. Upper abdomen: This study was performed without contrast and with lower than standard dose. These factors reduce the sensitivity for detection of small lesions in the upper abdomen. Status post cholecystectomy. Bones/soft tissues: Degenerative changes. IMPRESSION: No suspicious pulmonary nodules. Lung RADS 2: Benign Appearance or Behavior - Continue annual screening with LDCT in 12 months. Dictating Physician: ??ALPA LORENZANA MD Electronically Signed by: ??ALPA LORENZANA MD Dic Date/Time: ??08/19/24 0527 Sign date/Time: ??08/19/24 0631 Procedure Note Alpa Lorenzana MD - 08/24/2024 [facility] Diagnostic Imaging Department [address] [place] [address] Patient: JOSE LAMBERT /Age/Sex: 1960 - 63 - M Unit#: [id number] Location/Status: SPDICATLS/REG CLI Mnemonic/Ordering Site: [facility] Ordering Physician: SUYAPA WEST MD CT Lung Screening Low Dose - 08/17/24728 Report Status:Signed Indication: Greater than 20 total pack-year smoking history,asymptomatic former smoker Technique: Low-dose CT scan of the chest obtained as a lung cancerscreening study. Multiplanar reformatted images were obtained. Dose reductiontechnique: ASIR (Adaptive statistical iterative reconstruction) and/or AEC(automated exposure control) DLP: 119.43 mGy-cm COMPARISON: Multiple priors, the most recent dated June 2023. FINDINGS: Lack of intravenous contrast limits evaluation of the natanael,vascular structures and visualized abdominal viscera. Scan sensitivity degradeddue to motion. Lungs/airways: Trachea and central airways are patent. Emphysematouschanges. Atelectasis in the left lower lobe. Few scattered sub-5 mm pulmonary nodules, similar to prior. Base of the neck, mediastinum, heart, chest wall, vessels: The assessmentof hilar lymphadenopathy is difficult without the use of IV contrast.Right-sided Port-A-Cath with tip in the distal SVC. No enlarged mediastinal lymphnodes. Ascending thoracic aorta measures 4.0 cm at the level of the pulmonarytrunk; similar to prior. Coronary artery calcifications. Upper abdomen: This study was performed without contrast and with lowerthan standard dose. These factors reduce the sensitivity for detection ofsmall lesions in the upper abdomen. Status post cholecystectomy. Bones/soft tissues: Degenerative changes. IMPRESSION: No suspicious pulmonary nodules. Lung RADS 2: Benign Appearance or Behavior - Continue annual screeningwith LDCT in 12 months. Dictating Physician: ALPA LORENZANA MD Electronically Signed by: ALPA LORENZANA MD Dic Date/Time: 08/19/24526 Sign date/Time: 08/19/24630 Suyapa West MD IMG CT PROCEDURES from Last 3 Months Care Teams Bus Attendant Relationship Specialty Start Date End Date Morris Rizzo MD [address] [place] [address] [address] [place] [address] PCP - General Internal Medicine 05/27/22
--- OUTSIDE RECORDS SUMMARY | 2024-11-18 07:43 | XMS_ITS ---
Author Organization [facility] Address [address] [place] [address] Care Team Providers Care Construction Supervisor/Carpenter Name Role Phone Morris Rizzo Primary Care Provider [phone] Active Problems Problem Noted Date Diagnosed Date Hyperkalemia 05/30/2024 Malignant neoplasm of overlapping sites of bladd er 03/04/2024 Other hydronephrosis 03/04/2024 Current Oncology Plans No current plan information found. Past Plans No past plan information found. Radiation Treatments * No radiation treatments are documented for this patient in [facility]. Treatments may have been administered in another system. Lifetime Dose Tracking * Chemical Lifetime Dose Automatic Entry Manual Entr y TotalDLP 1,042 mGy 1,042 mGy 0 mGy [id number] 13.5 mSv 13.5 mSv 0 mSv CTDIvol Max 11.8 mGy 11.8 mGy 0 mGy CTDIvol Min 7.3 mGy 7.3 mGy 0 mGy
--- OUTSIDE RECORDS SUMMARY | 2024-11-18 07:43 | XMS_ITS ---
Author Organization [facility] Address [address] [place] [address] Care Team Providers Care Package Reinspector Name Role Phone So MCALLISTER, Primary Care Provider Unavaila Jose Doty Unavailable [phone] Eamon MCALLISTER, Zamzam Unavailable Unavailable REASON FOR VISIT colonoscopy Encounters Encounter Location Date Provider Diagnosis [facility] [address] [place] [address] 05/27/2024 Jose Arevalo PLAN OF TREATMENT No Information
--- OUTSIDE RECORDS SUMMARY | 2024-11-18 07:43 | XMS_ITS | Referral Summary ---
Author Organization [facility] Address [address] [place] [address] Care Team Providers Care Edge Plugger Name Role Phone Morris Rizzo Primary Care Provider [phone] Allergies No known active allergies Medications atorvastatin [...] of bladd er 03/04/2024 Other hydronephrosis 03/04/2024 Social History Tobacco Use Types Packs/Day Years Used Date Smoking Tobacco: Former Cigarettes 1 33 1 9 - 2011 Smokeless Tobacco: Former Tobacco Cessation:Counseling Given: Not Answered Comments:On and off 4383-1112 smoking, at most 1 PPD Alcohol Use [...] 05/27/2024 7:31 AM EDT Plan of Treatment Not on file Procedures * Due to [place] [employer] law, this organization might not be sharing negative HIV tests. Procedure Name Priority Date/Time Associated Diagnosis Comments AMB EXTERNAL CT CHEST, OUTSI DE RESULT 01/23/2024 from Last 3 Months or Most Recently Relevant to Health Maintenance Results * Due to [place] [employer] law, this organization might not be sharing negative HIV tests. * AMB EXTERNAL CT CHEST, OUTSIDE RESULT (01/23/2024) Anatomical Region Laterality Modality Other 01/23/2024 us [facility] AMB EXTERNAL RESULT PROCEDURE S Final Result from Last 3 Months or Most Recently Relevant to Health Maintenance Insurance MEDICARE FOR LIFE Advance Directives Documents on File Type Date Recorded Patient Pulp Plant Supervisor Expl [facility] Care Proxy 05/27/2024 7:26 AM Care Teams Edge Plugger Relationship Specialty Start Date End Date Morris Rizzo [address] [place] [address] [place] [address] PCP - General Internal Medicine 01/09/24
--- OUTSIDE RECORDS SUMMARY | 2024-11-18 07:44 | XMS_ITS ---
Author Organization [facility] Address [address] [place] [address] Care Team Providers Care Fleshing Machine Operator Name Role Phone So MCALLISTER, Primary Care Provider Unavaila Jose Doty Unavailable [phone] Eamon MCALLISTER, Zamzam Unavailable Unavailable REASON FOR VISIT CANCEL PROCEDURE Encounters Encounter Location Date Provider Diagnosis [facility] [address] [place] [address] 05/30/2024 Jose Arevalo PLAN OF TREATMENT No Information
--- OUTSIDE RECORDS SUMMARY | 2024-11-18 07:44 | XMS_ITS | Patient Health Record ---
Author Organization [facility] Address [address] [place] [address] Care Team Providers Care Law Instructor Name Role Phone So MCALLISTER, Primary Care Provider Unavaila yaquelin Arevalo Jose Unavailable [phone] Eamon MCALLISTER, Zamzam Unavailable Unavailable REASON FOR [...] Problem Epigastric abdominal pain (R10.13) Active confirmed [id number] Problem Encounter for screening for malignant neoplasm of colon (Z12.11) Active confirmed 781948118 Problem Preprocedural examination (Z01.818) Active confirmed [id number] Problem Colon cancer screening (Z12.11) Active confirmed Colon cancer screening (325471868) Encounters Encounter Location Date Provider Diagnosis [facility] [place] [address] [place], [place] [phone] 06/03/2024 Jose Arevalo [facility] [address] [place] [address] 04/23/2024 Jose Arevalo Colon cancer screening Z12.11 [facility] [address] [place] [address] 05/27/2024 Jose Irina [facility] [address] [place] [address] 05/30/2024 Jose Arevalo ASSESSMENTS Encounter Date Diagnosis [...] Date MEDICARE OF [place] [address] [place] [address] [id number] JOSE CUBA Self - patient is the insured [employer] [address] [place] [id number] JOSE CUBA Self - patient is the insured MEDICAL (GENERAL) HISTORY Medical History History ICD Code Denies [place],DM,CVA,Lung disease,renal dise ase Hyperlipidemia Screening colonoscopy in [place] with Dr. Johansen revealed only hyperplastic polyps. EGD in 08/2017-small HH, normal duodenal and gastric biopsies Surgical History Surgery Date(Month/Year) Lap cholecystectomy--acalculous cholecys titis-Dr. Knutson 05/2017 Finger- infection drained 1969
--- OUTSIDE RECORDS SUMMARY | 2024-11-18 07:44 | XMS_ITS ---
Author Organization [facility] Address [address] [place] [address] Care Team Providers Care Flooring Professional Name Role Phone So MCALLISTER, Primary Care Provider Unavaila Jose Doty Unavailable [phone] Eamon MCALLISTER, Zamzam Lindsay Unavailable REASON FOR VISIT colon screening Encounters Encounter Location Date Provider Diagnosis [facility] [place] [address] [place], [place] [id number] 06/03/2024 Jose Arevalo PLAN OF TREATMENT No Information
[2024-11-18 08:42] LABS: Free T4 (Free Thyroxine) 0.97 ng/dL (0.71-1.85); Thyroid Stimulating Hormone 4.32 uIU/mL (0.32-4.0)
== END 2024-11-18 07:41 | disposition home or self-care (01) ==
LOC: HO.LAB 07:40
PROVIDERS: PCP Internal Medicine; Visit Provider Student in an Organized Health Care Education/Training Program
DX: E03.2 Hypothyroidism due to medicaments and other exogenous substances (principal); Z92.26 Personal history of immune checkpoint inhibitor therapy
CPT/HCPCS: 36415; 84439; 84443

== ENCOUNTER 2024-11-19 14:39 | Outpatient (AMB) | payer MEDICARE, OTHER, SELFPAY ==
[2024-11-19 14:45] VITALS: BP 170/100; PULSE 74; BMI 33.1
--- NOTE | 2024-11-19 14:45 | A.OFFVIS_ITS ---
Vital Signs 11/19/24 14:45 Height 6 ft 2 in Weight 257 lb 15.053 oz BMI 33.1 BP 170/100 H Blood Pressure Location Rt brachial Position Sitting Pulse 74 Pulse Source Pulse Oximeter Intake Visit Reasons: Abnormal thyroid function Intake Note: Patient present today for Abnormal Thyroid Function Test: Internal Communications Specialist Required: No Accompanied by: Self / Same As Patient Allergies No Known Allergies [No Known Allergies*] Allergy (Verified 11/19/24 14:46) Medication List - Last Reconciled 11/19/24 by Dilcia Brady MD amlodipine 10 mg PO DAILY atorvastatin 20 mg PO BEDTIME 90 days levothyroxine 100 mcg PO DAILY@1300 needle (disp) 18 G (BD Regular [place]) As directed to draw hydrocortisone in case of emergency omeprazole mg PO DAILY omeprazole magnesium (Prilosec OTC) 20 mg PO DAILY ondansetron 8 mg PO Q8H PRN prednisone 100 mg (5 x 20 mg) PO DAILY syringe with needle (BD Luer-Shiv Syringe) As directed to be used to inject hydrocortisone in case of emergency HPI Comments Details: 63 years male with past medical history significant for metastatic bladder cancer on immunotherapy with pembrolizumab here today for follow up of 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 With regards to his bladder cancer was diagnosed in November 2023, underwent TURBT on 12/12/2023 . Biopsy revealed invasive urothelial carcinoma, high-grade, tumor invades muscularis propria, lymphatic vessel invasion is identified. He started neoadjuvant chemotherapy with cisplatin 70 mg/m2/gemcitabine 1000mg/m2 D 1 and 8 q 21 days from 02/27/2024 until 04/2024. He was diagnosed with metastatic disease in 06/11/2024 based on PET-CT. Patient underwent ultrasound-guided biopsy of left gluteal mass which revealed metastatic poorly differentiated carcinoma. He also underwent excision of left axillary mass on 05/31/2024, pathology revealed poorly differentiated carcinoma compatible with metastatic urothelial carcinoma. Patient started systemic therapy with Enfortumab vedotin with pembrolizumab administered every 21 days in 06/11/2024. He is continuing on this as of 10/03/24 Hypothyroidism His labs when showed normal TSH from 06/10/2024 with subsequently developing low TSH levels on 06/28/2024 at 0.21. Had further suppression of TSH with labs going down to 0.02 on 07/19/2024. Free T4 level was normal. He subsequently developed elevated TSH of 18.86 on 08/16/2024 and most recently blood work done on 08/19/2024 showed TSH of 29.74.. This pattern is consistent with thyroiditis seen in the setting of immune checkpoint inhibitor therapies which are known to cause endocrinopathies. In terms of thyroid dysfunction, PD 1 inhibitor such as pembrolizumab are the ones most commonly involve in causing thyroid dysfunction. Generally immune checkpoint inhibitor therapy does not need to be interrupted or discontinued. And this pattern is very commonly seen were patients develop thyroiditis with low TSH from 1-6 weeks post starting therapy subsequently followed by high TSH around 8 weeks of therapy. No compressive symptoms. No family history of thyroid disease or thyroid cancer. He denies biotin use. 08/19/2024: Started on levothyroxine 50 mcg daily. 08/11/2024: TSH 29.74 08/24/2024 TSH 51.52 08/26/2024: TSH 30.21 09/06/2024: TSH 46.98, Oncology team increased levothyroxine to 75 mcg daily 09/13/2024 TSH 56.20, free T4 0.61 09/23/2024: TSH 47.81, free T4 0.58 09/27/2024: TSH 45.96, TPO antibodies elevated at 85 Bowel movements are regular, no temperature intolerance , weight went down to 254 lbs in Aug 2024 from 260 lbs in Jul 2024 and npw back up at 263 lbs in Sep 2024. No skin or hair changes. 10/04/24: Levothyroxine increased to 100 mcg daily taking it at 2 AM in the morning , goes back to sleep after Interval history Labs 11/18/2024 show TSH has significantly improved now down to 4.32 with normal free T4 of 0.97. Patient continues on 100 mcg of levothyroxine. 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 Denies any steroid use after that. Patient denied any lightheadeness, dizziness ,vomiting at the time of these labs, only mild nausea and some weight loss noted . 09/17/24 cortisol came back as <1, ACTH 7 , normal sodium and potassium , 09/18/24: Started hydrocortisone 20 mg in the morning and 10 mg in the afternoon at 1 pm 09/23/24: renin 0.71 , aldosterone pending still Currently as of 10/03/24 : denied any lightheadeness, dizziness ,vomiting at the time of these labs, only mild nausea , mild fatigue , denies any headaches or visual symptoms such as diplopia. Bowel movements are regular. 10/03/24 : hydrocortisone chnaged to 20 mg in the morning and 5 mg in the afternoon at 2 pm 10/18/2024: Hydrocortisone changed to 10 mg in the morning and 5 mg in the afternoon at 14:00. Interval history Unfortunately in September he was noted to have elevation in creatinine of up to 3.8 from a baseline of 2 consistent with GORDON with a diagnosis of interstitial nephritis in the setting of immune checkpoint inhibitor therapy. He was started on prednisone 100 mg daily, and most recently on 10/29/1024 Oncology titrated it down to 80 mg daily. Given he was started on high-dose steroids for nephritis, hydrocortisone has been held for now. Pembrolizumab was also held. has medical alert bracelet Denies any nausea, vomiting, lightheadedness, dizziness Has not required any emergency dosing or stress dosing Physical exam General: sitting comfortably in no acute distress HEENT: normocephalic/atraumatic, moist oral mucosa Neck: supple, symmetrical, no thyromegaly Cardiac: normal heart sounds Pulm: normal breath sounds B/L, no added breath sounds Abd: not distended, no tenderness Extremities: no edema, no signs of myxedema Laboratory Tests 06/10/24 06/28/24 07/05/24 09:29 15:23 13:25 TSH 1.31 0.21 L 0.04 L Free T4 Total T3 07/08/24 07/19/24 07/26/24 10:22 13:23 14:41 TSH 0.02 L 0.02 L 0.25 L Free T4 1.41 Total T3 129 08/16/24 08/19/24 13:33 10:40 TSH 18.86 H 29.74 H Free T4 Total T3 Laboratory Tests 06/10/24 06/28/24 07/05/24 09:29 15:23 13:25 Sodium Potassium Creatinine Estimated GFR Renin TSH 1.31 0.21 L 0.04 L Free T4 Total T3 DHEA Sulfate Random Cortisol ACTH 07/08/24 07/19/24 07/26/24 10:22 13:23 14:41 Sodium Potassium Creatinine Estimated GFR Renin TSH 0.02 L 0.02 L 0.25 L Free T4 1.41 Total T3 129 DHEA Sulfate Random Cortisol ACTH 08/16/24 08/19/24 08/24/24 13:33 10:40 08:02 Sodium Potassium Creatinine Estimated GFR Renin TSH 18.86 H 29.74 H 51.52 H Free T4 Total T3 DHEA Sulfate Random Cortisol ACTH 08/26/24 09/06/24 09/13/24 11:22 12:53 12:10 Sodium Potassium Creatinine Estimated GFR Renin TSH 30.21 H 46.98 H 56.20 H Free T4 0.61 L Total T3 DHEA Sulfate Random Cortisol ACTH 09/17/24 09/23/24 09/27/24 07:00 12:50 14:42 Sodium 142 140 Potassium 4.4 4.8 Creatinine 2.08 H 2.03 H Estimated GFR 32 33 Renin 0.71 TSH 47.81 H 45.96 H Free T4 0.58 L Total T3 DHEA Sulfate 49 Random Cortisol < 1.0 ACTH 7 09/30/24 09:25 Sodium Potassium Creatinine Estimated GFR Renin TSH Free T4 Total T3 DHEA Sulfate Random Cortisol 13.1 ACTH Laboratory Tests 09/23/24 12:50 Thyroid Peroxidase Ab 86 (H) Laboratory Tests 10/04/24 10/17/24 10/18/24 07:16 07:39 07:19 Sodium 141 137 Potassium 4.3 4.2 Chloride 105 105 Carbon Dioxide 26 25 Creatinine 2.30 H 3.40 H Estimated GFR 29 18 TSH 59.59 H 58.14 H Free T4 0.60 L 0.73 FSH 25.7 H Luteinizing Hormone 6.7 Prolactin 13.3 Total Testosterone 350 Fr Testosterone Dialys 45.5 Sex Hormone Bind Glob 39 Human Growth Hormone 0.5 Somatomedin-C 162 Somato-C Z-Score Male 0.7 Laboratory Tests 06/10/24 06/28/24 07/05/24 09:29 15:23 13:25 Sodium Creatinine Estimated GFR TSH 1.31 0.21 L 0.04 L Free T4 Total T3 07/08/24 07/19/24 07/26/24 10:22 13:23 14:41 Sodium Creatinine Estimated GFR TSH 0.02 L 0.02 L 0.25 L Free T4 1.41 Total T3 129 08/16/24 08/19/24 10/28/24 13:33 10:40 06:43 Sodium Creatinine Estimated GFR TSH 18.86 H 29.74 H 12.55 H Free T4 Total T3 11/01/24 11/08/24 11/18/24 11:06 09:23 07:49 Sodium 141 Creatinine 2.24 H Estimated GFR 29 TSH 7.94 H 6.61 H 4.32 H Free T4 0.97 Total T3 PFSH Medical History History of immune checkpoint inhibitor therapy Hypophysitis Adrenal insufficiency Hypothyroidism Port-A-Cath in place (02/16/24) History of blood transfusion Bladder cancer Obesity (BMI 30-39.9) Pure hypercholesterolemia Hyperlipemia Carpal tunnel syndrome Surgical History Mass of left axilla (05/31/24) Hx of colonoscopy Hx of cystoscopy History of surgery History of hand surgery History of ankle surgery History of cholecystectomy Family History Father Multiple sclerosis, primary progressive Mother No problems noted. 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 His labs when showed normal TSH from 06/10/2024 with subsequently developing low TSH levels on 06/28/2024 at 0.21. Had further suppression of TSH with labs going down to 0.02 on 07/19/2024. Free T4 level was normal. He subsequently developed elevated TSH of 18.86 on 08/16/2024 and most recently blood work done on 08/19/2024 showed TSH of 29.74.. This pattern is consistent with thyroiditis seen in the setting of immune checkpoint inhibitor therapies which are known to cause endocrinopathies. In terms of thyroid dysfunction, PD 1 inhibitor such as pembrolizumab are the ones most commonly involve in causing thyroid dysfunction. Generally immune checkpoint inhibitor therapy does not need to be interrupted or discontinued. And this pattern is very commonly seen were patients develop thyroiditis with low TSH from 1-6 weeks post starting therapy subsequently followed by high TSH around 8 weeks of therapy. He has a immune checkpoint inhibitor induced hypothyroidism. Started on levothyroxine 50 mcg daily on 08/19/2024 which was increased to 75 mcg daily by the Oncology team on 09/06/2024.. 09/23/2024: TSH 47.81, free T4 0.58, 09/27/2024: TSH 45.96, labs continue to show elevated TSH. 10/04/2024: Levothyroxine dose increased to 100 mcg daily by me. Labs 11/18/2024 show TSH has significantly improved now down to 4.32 with normal free T4 of 0.97. Patient continues on 100 mcg of levothyroxine. Plan: -continue levothyroxine 100 mcg daily. -ordered TSH, free T4 to be done in 6 weeks sometime early December 2024 -follow up in 3 months (2) Adrenal insufficiency: Code(s): E27.40 - Unspecified adrenocortical insufficiency Category: Medical Plan: 63-year-old male with metastatic bladder cancer on immunotherapy with pembrolizumab started 06/11/2024 every 21 days. He receives dexamethasone with his regimen. 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 Denies any steroid use after that. Patient denied any lightheadeness, dizziness ,vomiting at the time of these labs, only mild nausea and some weight loss noted . 09/17/24 cortisol came back as <1, ACTH 7 , normal sodium and potassium , labs consistent with secondary adrenal insufficiency. 09/18/24: Started hydrocortisone 20 mg in the morning and 10 mg in the afternoon at 1 pm 10/04/2024: Rest of the pituitary workup was unremarkable with normal testosterone, IGF-1 levels. Normal prolactin levels. This is consistent with isolated adrenal corticotropin hormone deficiency. Is olated corticotroph cells damage has been seen with pembrolizumab. Most patients with PD-1 inhibitors did not show any structural changes in the pituitary, those are more common with CTLA 4 inhibitors. At this point given he is not complaining of any vision changes or headaches I am going to not order a pituitary MRI as it does not affect clinical management. Unfortunately in September he was noted to have elevation in creatinine of up to 3.8 from a baseline of 2 consistent with GORDON with a diagnosis of interstitial nephritis in the setting of immune checkpoint inhibitor therapy. He was started on prednisone 100 mg daily, and most recently on 10/29/1024 Oncology titrated it down to 80 mg daily. Given he was started on high-dose steroids for nephritis, hydrocortisone has been held for now. Pembrolizumab was also held.. Has medical alert bracelet Denies any nausea, vomiting, lightheadedness, dizziness Plan: -once done with prednisone taper and down to 10 mg daily, switch back to hydrocortisone to 10 mg in the morning and 5 mg in the afternoon , patient will reach out to us when he is about gland prednisone taper for prescription of hydrocortisone. -follow up in 3 months (3) Hypophysitis: Code(s): E23.6 - Other disorders of pituitary gland Category: Medical Plan: See above (4) History of immune checkpoint inhibitor therapy: Code(s): Z92.26 - Personal history of immune checkpoint inhibitor therapy Category: Medical Plan: see above Plan I spent 30 minutes in reviewing the record, seeing the patient and documenting in the medical record. Orders: Orders Free T4 (Free Thyroxine) 6 Weeks E03.2 - Hypothyroidism due to medicaments and other exogenous substances Thyroid Stimulating Hormone 6 Weeks E03.2 - Hypothyroidism due to medicaments and other exogenous substances Patient Instructions: Do thyroid blood work in 6 weeks Follow up in 3 months Once your prednisone course is about to end a week prior please reach out for hydrocortisone prescription Continue levothyroxine 100 mcg daily Coding Level of Care Code Est Pt Level 4 (08112) Diagnoses Hypothyroidism due to medication E03.2 Hypothyroidism type: due to medication Adrenal insufficiency E27.40 Hypophysitis E23.6 History of immune checkpoint inhibitor therapy Z92.26 Time Spent (min) 30
--- OUTSIDE RECORDS SUMMARY | 2024-11-19 15:34 | XMS_ITS ---
Author Organization [facility] Address [address] [place] [address] Care Team Providers Care Qc Scientist Name Role Phone So MCALLISTER, Primary Care Provider Unavaila Jose Doty Unavailable [phone] Eamon MCALLISTER, Zamzam Unavailable Unavailable REASON FOR VISIT CANCEL PROCEDURE Encounters Encounter Location Date Provider Diagnosis [facility] [address] [place] [address] 05/30/2024 Jose Arevalo PLAN OF TREATMENT No Information
--- OUTSIDE RECORDS SUMMARY | 2024-11-19 15:34 | XMS_ITS | Encounter Summary ---
Author Organization [facility] Address [address] [place] [address] Care Team Providers Care Enhanced Environmental Operator Name Role Phone Morris Rizzo Primary Care Provider Encounter Details Date Type Department Care Team (Late st Contact Info) Description 04/15/2024 Orders Only [facility] ACC Building Mammography [address] [facility], 5th [place] [address] Shola Arroyo MD [address] [place] [address] Social History Tobacco Use Types Packs/Day Years [...] on filedocumented in this encounter Care Teams Enhanced Environmental Operator Relationship Specialty Start Date End Date Morris Rizzo [address] [place] [address] [place] [address] PCP - General Internal Medicine 01/09/24 documented as of this encounter
--- OUTSIDE RECORDS SUMMARY | 2024-11-19 15:34 | XMS_ITS ---
Author Organization [facility] Address [address] [place] [address] Care Team Providers Care Opthalmic Tech Name Role Phone Morris Rizzo Primary Care Provider Active Problems Problem Noted Date Diagnosed Date Hyperkalemia 05/30/2024 Malignant neoplasm of overlapping sites of bladd er 03/04/2024 Other hydronephrosis 03/04/2024 Current Oncology Plans No current plan information found. Past Plans No past plan information found. Radiation Treatments * No radiation treatments are documented for this patient in [facility]. Treatments may have been administered in another system. Lifetime Dose Tracking * Chemical Lifetime Dose Automatic Entry Manual Entr y TotalDLP 1,042 mGy 1,042 mGy 0 mGy [id number] 13.5 mSv 13.5 mSv 0 mSv CTDIvol Max 11.8 mGy 11.8 mGy 0 mGy CTDIvol Min 7.3 mGy 7.3 mGy 0 mGy
--- OUTSIDE RECORDS SUMMARY | 2024-11-19 15:34 | XMS_ITS | Clinical Summary ---
Author Organization [facility] Address [address] [place] [address] Care Team Providers Care Cognos Name Role Phone Morris Rizzo Primary Care Provider [phone] Allergies No known active allergies Medications atorvastatin [...] Cessation:Counseling Given: Not Answered Comments:On and off [id number] smoking, at most 1 PPD Alcohol Use [...] patients) Completed 08/03/2023 Procedures * Due to [place] [employer] law, this organization might not be sharing negative HIV tests. Procedure Name Priority Date/Time Associated Diagnosis Comments AMB EXTERNAL CT CHEST, OUTSI DE RESULT 01/23/2024 from Last 3 Months or Most Recently Relevant to Health Maintenance Results * Due to [place] [employer] law, this organization might not be sharing negative HIV tests. * AMB EXTERNAL CT CHEST, OUTSIDE RESULT (01/23/2024) Anatomical Region Laterality [facility]ality [facility] RESULT PROCEDURE S Final Result from Last 3 Months or Most Recently Relevant to Health Maintenance Insurance MEDICARE FOR LIFE Advance Directives Documents on File Type Date Recorded Patient Oxygen Furnace Operator Expl velasquez Health Care Proxy 05/27/2024 7:26 AM Care Teams Cognos Relationship Specialty Start Date End Date Morris Rizzo [address] [place] [address] Dr Raymond, [place] [address] PCP - General Internal Medicine 01/09/24
--- OUTSIDE RECORDS SUMMARY | 2024-11-19 15:34 | XMS_ITS | Patient Health Record ---
Author Organization [facility] Address [address] [place] [address] Care Team Providers Care Electronic Tech Name Role Phone So MCALLISTER, Primary Care Provider Unavaila yaquelin Arevalo Jose Unavailable [phone] Eamon MCALLISTER, Zamzam Unavailable Unavailable REASON FOR [...] Problem Epigastric abdominal pain (R10.13) Active confirmed [id number] Problem Encounter for screening for malignant neoplasm of colon (Z12.11) Active confirmed 034230641 Problem Preprocedural examination (Z01.818) Active confirmed [id number] Problem Colon cancer screening (Z12.11) Active confirmed Colon cancer screening (138339344) Encounters Encounter Location Date Provider Diagnosis [facility] [address] [place], [place] [id number] 06/03/2024 Jose Arevalo [facility] [address] [place] [phone] 04/23/2024 Jose Arevalo Colon cancer screening Z12.11 [facility] [address] [place] [phone] 05/27/2024 Jose Irina [facility] [address] [place] [phone] 05/30/2024 Jose Arevalo ASSESSMENTS Encounter Date Diagnosis [...] Date MEDICARE OF [place] [address] [place] [address] [phone] [id number] JOSE CUBA Self - patient is the insured [employer] [address] [place] [address] [id number] JOSE CUBA Self - patient is the insured MEDICAL (GENERAL) HISTORY Medical History History ICD Code Denies [place],DM,CVA,Lung disease,renal dise ase Hyperlipidemia Screening colonoscopy in Mar with Dr. Johansen revealed only hyperplastic polyps. EGD in 08/2017-small HH, normal duodenal and gastric biopsies Surgical History Surgery Date(Month/Year) Lap cholecystectomy--acalculous cholecys titis-Dr. Knutson 05/2017 Finger- infection drained 1969
--- OUTSIDE RECORDS SUMMARY | 2024-11-19 15:34 | XMS_ITS | Clinical Summary ---
Author Organization [facility] Address [address] [place] [address] Phone Care Team Providers Care Fish Filleter Name Role Phone Morris Rizzo MD Primary Care Provider [phone] Social History Tobacco Use Types Packs/Day Years [...] AM EDT Narrative 08/19/2024 6:[address] [facility] Diagnostic Imaging Department [address] [place] [address] Patient: ??JOSE LAMBERT ?/Age/Sex: 1960 - 63 - M Unit#: ??[id number] ? Location/Status: ??SPDICATLS/REG CLI ? Mnemonic/Ordering Site: [...] Procedure Note Alpa Lorenzana MD - 08/24/[address] [facility] Diagnostic Imaging Department [address] [place] [address] Patient: JOSE LAMBERT /Age/Sex: 1960 - 63 - M Unit#: [id number] Location/Status: SPDICATLS/REG CLI Mnemonic/Ordering Site: [facility] Ordering Physician: SUYAPA WEST MD CT Lung [...] PROCEDURES from Last 3 Months Care Teams Fish Filleter Relationship Specialty Start Date End Date Morris Rizzo MD [address] [place] [address] [address] [place] [address] PCP - General Internal Medicine 05/27/22
--- OUTSIDE RECORDS SUMMARY | 2024-11-19 15:34 | XMS_ITS | Referral Summary ---
Author Organization [facility] Address [address] [place] [address] Care Team Providers Care Forepart Rounder Name Role Phone Morris Rizzo Primary Care Provider [phone] Allergies No known active allergies Medications atorvastatin [...] Cessation:Counseling Given: Not Answered Comments:On and off 9300-1101 smoking, at most 1 PPD Alcohol Use [...] Not on file Procedures * Due to [place] [employer] law, this organization might not be sharing negative HIV tests. Procedure Name Priority Date/Time Associated Diagnosis Comments AMB EXTERNAL CT CHEST, OUTSI DE RESULT 01/23/2024 from Last 3 Months or Most Recently Relevant to Health Maintenance Results * Due to [place] [employer] law, this organization might not be sharing negative HIV tests. * AMB EXTERNAL CT CHEST, OUTSIDE RESULT (01/23/2024) Anatomical Region Laterality Modality Other 01/23/2024 us [facility] AMB EXTERNAL RESULT PROCEDURE S Final Result from Last 3 Months or Most Recently Relevant to Health Maintenance Insurance MEDICARE FOR LIFE Advance Directives Documents on File Type Date Recorded Patient Goods Layer Expl [facility] Care Proxy 05/27/2024 7:26 AM Care Teams Forepart Rounder Relationship Specialty Start Date End Date Morris Rizzo [address] [place] [address] [place] [address] PCP - General Internal Medicine 01/09/24
--- OUTSIDE RECORDS SUMMARY | 2024-11-19 15:34 | XMS_ITS ---
Author Organization [facility] Address [address] [place] [address] Care Team Providers Care Claims Agent Right Of Way Name Role Phone So MCALLISTER, Primary Care Provider Unavaila Jose Doty Unavailable [phone] Eamon MCALLISTER, Zamzam Unavailable Unavailable REASON FOR VISIT colonoscopy Encounters Encounter Location Date Provider Diagnosis [facility] [address] [place] [address] 05/27/2024 Jose Arevalo PLAN OF TREATMENT No Information
--- OUTSIDE RECORDS SUMMARY | 2024-11-19 15:35 | XMS_ITS ---
Author Organization [facility] Address [address] [place] [address] Care Team Providers Care Counterperson Name Role Phone So MCALLISTER, Primary Care Provider Unavaila Jose Doty Unavailable [phone] Eamon MCALLISTER, Zamzam Lindsay Unavailable REASON FOR VISIT colon screening Encounters Encounter Location Date Provider Diagnosis [facility] [place] [address] [place], [place] [id number] 06/03/2024 Jose Arevalo PLAN OF TREATMENT No Information
== END 2024-11-19 15:06 | disposition home or self-care (01) ==
PROVIDERS: PCP Internal Medicine; Visit Provider Student in an Organized Health Care Education/Training Program
DX: E03.2 Hypothyroidism due to medicaments and other exogenous substances (principal); E27.40 Unspecified adrenocortical insufficiency; E23.6 Other disorders of pituitary gland; Z92.26 Personal history of immune checkpoint inhibitor therapy
CPT/HCPCS: 99214

== ENCOUNTER → 2024-11-19 14:39 | Outpatient (BNVA) | payer MEDICARE, OTHER, SELFPAY | PROVIDERS: PCP Internal Medicine; Visit Provider Student in an Organized Health Care Education/Training Program | DX: E03.2 Hypothyroidism due to medicaments and other exogenous substances (principal); E27.40 Unspecified adrenocortical insufficiency; E23.6 Other disorders of pituitary gland; Z92.26 Personal history of immune checkpoint inhibitor therapy | CPT/HCPCS: 99212 ==

== ENCOUNTER 2024-11-21 12:42 | Outpatient (AMB) | payer MEDICARE, OTHER, SELFPAY ==
[2024-11-21 12:53] VITALS: BP 166/116; PULSE 101; TEMP 36.2; O2SAT 98; BMI 32.7
--- NOTE | 2024-11-21 12:53 | MHC.PC.OV ---
Vital Signs 11/21/24 12:53 Height 6 ft 2 in Weight 255 lb BMI 32.7 BP 166/116 H Blood Pressure Location Lt brachial Position Sitting Pulse 101 H Pulse Source Pulse Oximeter Temp 97.1 F Temp Source Temporal Artery Scan Pulse Oximetry (%) 98 Oxygen Delivery Method Room Air Intake Visit Reasons: pe Intake Note: Patient is here today for a physical. Sub Arc Operator Required: No Accompanied by: Self / Same As Patient Allergies No Known Allergies [No Known Allergies*] Allergy (Verified 11/21/24 12:54) Medication List - Last Reconciled 11/22/24 by Morris Rizzo MD amlodipine 10 mg PO DAILY atorvastatin 20 mg PO BEDTIME 90 days cephalexin 250 mg PO Q6H levothyroxine 100 mcg PO DAILY@1300 needle (disp) 18 G (BD Regular [place]vel [place]) As directed to draw hydrocortisone in case of emergency omeprazole mg PO DAILY omeprazole magnesium (Prilosec OTC) 20 mg PO DAILY ondansetron 8 mg PO Q8H PRN prednisone 100 mg (5 x 20 mg) PO DAILY syringe with needle (BD Luer-Shiv Syringe) As directed to be used to inject hydrocortisone in case of emergency Tobacco use date assessed: 10/29/24 Fall risk assessment: No Falls in past year Last assessed Fall Risk: 11/21/24 Dental Screening Dental Screen Date: 10/29/24 HPI pe HPI Details hypertension hyperlipidemia and hypothyroidism; seeing oncology for treatment of metastatic bladder cancer PFSH Medical History History of immune checkpoint inhibitor therapy Hypophysitis Adrenal insufficiency Hypothyroidism Port-A-Cath in place (02/16/24) History of blood transfusion Bladder cancer Obesity (BMI 30-39.9) Pure hypercholesterolemia Hyperlipemia Carpal tunnel syndrome Surgical History Mass of left axilla (05/31/24) Hx of colonoscopy Hx of cystoscopy History of surgery History of hand surgery History of ankle surgery History of cholecystectomy Family History Father Multiple sclerosis, primary progressive Mother No problems noted. 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 1. Little interest or pleasure in doing things: not at all 2. Feeling down, depressed, or hopeless: not at all 3. Trouble falling or staying asleep, or sleeping too much: not at all 4. Feeling tired or having little energy: several days 5. Poor appetite or overeating: not at all 6. Feeling bad about yourself - or that you are a failure or have let yourself or your family down: not at all 7. Trouble concentrating on things, such as reading the newspaper or watching television: not at all 8. Moving or speaking so slowly that other people could have noticed. Or the opposite - being so fidgety or restless that you have been moving around a lot more than usual: not at all 9. Thoughts that you would be better off or of hurting yourself in some way: not at all Total score: 1 17949 - PHQ-9 Billing: Yes Source: Developed by Drs. Brady Becerra, Alba Morales, Remy Brothers and colleagues, with an educational holly from [employer]. Thrive Questionnaire Date Thrive assessed: 11/21/24 I am a: Patient What is your living situation today?: I have a steady place to live Within the past 12 months, did the food you bought not last and you didn't have the money to get more?: Never true Within the past 12 months, did you worry whether your food would run out before you got money to buy more?: Never true Do you have trouble paying for medicines?: No Do you have trouble getting transportation to medical appointments?: No Do you have trouble paying your heating and electricity bill?: No Do you have trouble taking care of your child, family member or friend?: No Do you have trouble with day-to-day activities such as bathing, preparing meals, shopping, managing finances, etc.?: I choose not to answer this question Are you currently unemployed and looking for a job?: Yes Are you interested in more education?: No Please select the resources that you would like help with: None Currently or been in a relationship where the following occur: No concerns reported THRIVE Score: 0 AUDIT C Alcohol Use Questionnaire (AUDIT-C) 1. How often do you have a drink containing alcohol?: Monthly or less 2. How many drinks containing alcohol do you have on a typical day when you are drinking?: 1 or 2 3. How often do you have six or more drinks on one occasion?: Never Total Score: 1 RANDY-7 AMB Questionnaire RANDY-7 Date RANDY - 7 assessed: 11/21/24 Feeling nervous, anxious, or on edge: 1 = Several days Not being able to stop or control worryin = Several days Worrying too much about different things: 1 = Several days Trouble relaxin = More than half the days Being so restless that it is hard to sit still: 1 = Several days Becoming easily annoyed or irritable: 1 = Several days Feeling afraid as if something awful might happen: 0 = Not at all Total RANDY-7 score (0-4 normal; 5-9 mild; 10-14 moderate; 15-21 severe): 7 Source: Developed by Drs. Brady Becerra, Alba Morales, Remy Brothers and colleagues, with an educational holly from [employer]. RANDY-7 Assessment Billing RANDY-7 Assessment Tool: RANDY-7 Assessment 37969 Review of Systems Const Denies chills, Denies fatigue, Denies headache(s) and Denies weight loss Eyes Denies change in vision, Denies diplopia and Denies eye pain ENT Denies vertigo, Denies dizziness, Denies headache(s) and Denies nasal discharge Card Denies chest pain, Denies rapid heart rate and Denies dyspnea on exertion Resp Denies chest congestion, Denies cough, Denies pain with cough and Denies dyspnea on exertion GI Denies abdominal pain, Denies hematochezia and Denies change in bowel habits Musc Denies myalgias, Denies arthralgias and Denies joint swelling Skin/Breast Denies lesions and Denies unusual bruising Neuro Denies vertigo, Denies dizziness, Denies headache(s) and Denies focal weakness Endo Denies fatigue Physical exam (Primary Care) Vital Signs: Last Vital Signs Temp 97.1 F 11/21/24 12:53 Pulse 101 H 11/21/24 12:53 BP 166/116 H 11/21/24 12:53 Pulse Ox 98 11/21/24 12:53 Oxygen Delivery Method Room Air 11/21/24 12:53 BMI result Body Mass Index 32.7 Tobacco/Smoking Status: Tobacco use Status Tobacco use date assessed 10/29/24 11/21/24 13:00 Patient Tobacco Use Status Former Tobacco user 11/21/24 13:00 Tobacco use type Cigarette 11/21/24 13:00 e-Cigarette/Vaping Use Never Used 11/21/24 13:00 PHQ-9: PHQ-9 Score PHQ-9: Total score 1 11/21/24 13:00 Thrive Assessment: Date of Thrive Assessment Date Thrive assessed 11/21/24 11/21/24 13:00 Currently or been in a relationship where the following occur: No concerns reported Const General: cooperative, healthy appearing and no acute distress Orientation/consciousness: oriented to person, oriented to place and oriented to time [facility] Head: Yes normal to inspection, Yes normocephalic and Yes atraumatic Mouth: Normal oral and palatal mucosa present and tongue normal Throat: Yes posterior oropharynx normal and Yes uvula midline Eyes General: appearance normal, both eyes and all related structures Neck Neck: Yes normal visual inspection, Yes full ROM and Yes no lymphadenopathy Thyroid: Thyroid normal Carotids: normal carotid upstroke Chest Chest palpation & inspection: normal inspection of the chest Resp Effort & Inspection: normal respiratory effort and able to speak in complete sentences Auscultation: clear to auscultation bilaterally Cardio Jugular venous distension: no JVD Palpation: normal PMI Rate: regular rate Rhythm: regular rhythm Heart sounds: S1 normal heart sound present and S2 normal heart sound present GI Inspection: Yes normal to inspection Palpation (GI): Soft to palpation and No hepatosplenomegaly present Auscultation: normal bowel sounds General: Yes no CVA tenderness Back/Spine/Pelvis Back: no CVA tenderness Skin General skin exam: no rashes or lesions noted Neuro General: oriented to person, oriented to place and oriented to time Extrem General: Yes normal to inspection and Yes full ROM Coding Level of Care Code Est Pt Prev Care >65y(79829) Diagnoses Physical exam Z00.00 Hypertension I10 Hypothyroidism due to medication E03.2 Hypothyroidism type: due to medication Pure hypercholesterolemia E78.00 Malignant neoplasm metastatic from bladder C67.9 Additional Codes RANDY-7 Assessment Billing - RANDY-7 Assessment Tool: RANDY-7 Assessment 29068 ([id number]) PHQ-9 - 72120 - PHQ-9 Billing: Yes ([id number]) Assessment & Plan Assessment & Plan (1) Physical exam: Code(s): Z00.00 - Encounter for general adult medical examination without abnormal findings Category: Medical Plan: stable (2) Hypertension: Code(s): I10 - Essential (primary) hypertension Category: Medical Plan: stable; same rx (3) Hypothyroidism: Code(s): E03.9 - Hypothyroidism, unspecified Category: Medical Qualifiers: Hypothyroidism type: due to medication Qualified Code(s): E03.2 - Hypothyroidism due to medicaments and other exogenous substances Plan: stable; same rx (4) Pure hypercholesterolemia: Code(s): E78.00 - Pure hypercholesterolemia, unspecified Category: Medical Plan: stable; same rx (5) Malignant neoplasm metastatic from bladder: Code(s): C67.9 - Malignant neoplasm of bladder, unspecified Category: Surgical Plan: per oncology Orders: Orders Prostate Specific Antigen Scr 11/21/24 Z00.00 - Encounter for general adult medical examination without abnormal findings Lipid Panel 11/21/24 Z13.220 - Encounter for screening for lipoid disorders Medications: New cephalexin 250 mg PO Q6H 20 caps 0RF
--- OUTSIDE RECORDS SUMMARY | 2024-11-21 16:30 | XMS_ITS ---
Author Organization [facility] Address [address] [place] [address] Care Team Providers Care Ict Systems Test Engineer Name Role Phone So MCALLISTER, Primary Care Provider Unavaila Jose Doty Unavailable [phone] Eamon MCALLISTER, Zamzam Unavailable Unavailable REASON FOR VISIT colonoscopy Encounters Encounter Location Date Provider Diagnosis [facility] [address] [place] [address] 05/27/2024 Jose Arevalo PLAN OF TREATMENT No Information
--- OUTSIDE RECORDS SUMMARY | 2024-11-21 16:30 | XMS_ITS | Clinical Summary ---
Author Organization [facility] Address [address] [place] [address] Phone Care Team Providers Care Brass Cleaner Name Role Phone Morris Rizzo MD Primary Care Provider [phone] Social History Tobacco Use Types Packs/Day Years [...] on patient's age to complete this topic Care Teams Brass Cleaner Relationship Specialty Start Date End Date Morris Rizzo MD [address] [place] [address] Drive [address] [place] [address] PCP - General Internal Medicine 05/27/22
--- OUTSIDE RECORDS SUMMARY | 2024-11-21 16:30 | XMS_ITS | Encounter Summary ---
Author Organization [facility] Address [address] [place] [address] Care Team Providers Care Ui Programmer Name Role Phone Morris Rizzo Primary Care Provider [phone] Encounter Details Date Type Department Care Team (Late st Contact Info) Description 04/15/2024 Orders Only [facility] Mammography [address] [facility], 5th [place] [address] Shola Arroyo MD [address] [place] [address] Social History Tobacco Use Types Packs/Day Years [...] on filedocumented in this encounter Care Teams Ui Programmer Relationship Specialty Start Date End Date Morris Rizzo [address] [place] [address] [place] [address] PCP - General Internal Medicine 01/09/24 documented as of this encounter
--- OUTSIDE RECORDS SUMMARY | 2024-11-21 16:30 | XMS_ITS | Clinical Summary ---
Author Organization [facility] Address [address] [place] [address] Care Team Providers Care Methods Specialist Engineer Name Role Phone Morris Rizzo Primary Care Provider [phone] Allergies No known active allergies Medications atorvastatin [...] Cessation:Counseling Given: Not Answered Comments:On and off 9991-5326 smoking, at most 1 PPD Alcohol Use [...] patients) Completed 08/03/2023 Procedures * Due to [place] [employer] law, this organization might not be sharing negative HIV tests. Procedure Name Priority Date/Time Associated Diagnosis Comments AMB EXTERNAL CT CHEST, OUTSI DE RESULT 01/23/2024 from Last 3 Months or Most Recently Relevant to Health Maintenance Results * Due to [place] [employer] law, this organization might not be sharing negative HIV tests. * AMB EXTERNAL CT CHEST, OUTSIDE RESULT (01/23/2024) Anatomical Region Laterality Modality Other [facility] PROCEDURE S Final Result from Last 3 Months or Most Recently Relevant to Health Maintenance Insurance MEDICARE FOR LIFE Advance Directives Documents on File Type Date Recorded Patient Human Service Specialist Expl velasquez Health Care Proxy 05/27/2024 7:26 AM Care Teams Methods Specialist Engineer Relationship Specialty Start Date End Date Morris Rizzo [address] [place] [address] Dr Raymond, [place] [address] PCP - General Internal Medicine 01/09/24
--- OUTSIDE RECORDS SUMMARY | 2024-11-21 16:31 | XMS_ITS ---
Author Organization [facility] Address [address] [place] [address] Care Team Providers Care General Car Supervisor Yard Name Role Phone Morris Rizzo Primary Care Provider [phone] Active Problems Problem Noted Date Diagnosed Date Hyperkalemia 05/30/2024 Malignant neoplasm of overlapping sites of bladd er 03/04/2024 Other hydronephrosis 03/04/2024 Current Oncology Plans No current plan information found. Past Plans No past plan information found. Radiation Treatments * No radiation treatments are documented for this patient in [facility]. Treatments may have been administered in another system. Lifetime Dose Tracking * Chemical Lifetime Dose Automatic Entry Manual Entr y TotalDLP 1,042 mGy 1,042 mGy 0 mGy [id number] 13.5 mSv 13.5 mSv 0 mSv CTDIvol Max 11.8 mGy 11.8 mGy 0 mGy CTDIvol Min 7.3 mGy 7.3 mGy 0 mGy
--- OUTSIDE RECORDS SUMMARY | 2024-11-21 16:31 | XMS_ITS ---
Author Organization [facility] Address [address] [place] [address] Care Team Providers Care Charter Boat Captain Name Role Phone So MCALLISTER, Primary Care Provider Unavaila Jose Doty Unavailable [phone] Eamon MCALLISTER, Zamzam Lindsay Unavailable REASON FOR VISIT colon screening Encounters Encounter Location Date Provider Diagnosis [facility] [place] [address] [place], [place] [phone] 06/03/2024 Jose Arevalo PLAN OF TREATMENT No Information
--- OUTSIDE RECORDS SUMMARY | 2024-11-21 16:31 | XMS_ITS | Referral Summary ---
Author Organization [facility] Address [address] [place] [address] Care Team Providers Care Inspecting Supervisor Name Role Phone Morris Rizzo Primary Care Provider [phone] Allergies No known active allergies Medications atorvastatin [...] Cessation:Counseling Given: Not Answered Comments:On and off 6529-3379 smoking, at most 1 PPD Alcohol Use [...] Not on file Procedures * Due to [place] invi law, this organization might not be sharing negative HIV tests. Procedure Name Priority Date/Time Associated Diagnosis Comments AMB EXTERNAL CT CHEST, OUTSI DE RESULT 01/23/2024 from Last 3 Months or Most Recently Relevant to Health Maintenance Results * Due to [place] invi law, this organization might not be sharing negative HIV tests. * AMB EXTERNAL CT CHEST, OUTSIDE RESULT (01/23/2024) Anatomical Region Laterality Modality Other 01/23/2024 us [facility] AMB EXTERNAL RESULT PROCEDURE S Final Result from Last 3 Months or Most Recently Relevant to Health Maintenance Insurance MEDICARE FOR LIFE Advance Directives Documents on File Type Date Recorded Patient Production Finisher Expl [facility] Care Proxy 05/27/2024 7:26 AM Care Teams Inspecting Supervisor Relationship Specialty Start Date End Date Morris Rizzo [address] [place] [address] [place] [address] PCP - General Internal Medicine 01/09/24
--- OUTSIDE RECORDS SUMMARY | 2024-11-21 16:31 | XMS_ITS ---
Author Organization [facility] Address [address] [place] [address] Care Team Providers Care Credentialing Coordinator Name Role Phone So MCALLISTER, Primary Care Provider Unavaila Jose Doty Unavailable [phone] Eamon MCALLISTER, Zamzam Unavailable Unavailable REASON FOR VISIT CANCEL PROCEDURE Encounters Encounter Location Date Provider Diagnosis [facility] [address] [place] [address] 05/30/2024 Jose Arevalo PLAN OF TREATMENT No Information
--- OUTSIDE RECORDS SUMMARY | 2024-11-21 16:31 | XMS_ITS | Patient Health Record ---
Author Organization [facility] Address [address] [place] [address] Care Team Providers Care Warehouse Administrative Assistant Name Role Phone So MCALLISTER, Primary Care Provider Unavaila yaquelin Arevalo Jose Unavailable [phone] Eamon MCALLISTER, Zamzam Unavailable Unavailable REASON FOR [...] Problem Epigastric abdominal pain (R10.13) Active confirmed [id number] Problem Encounter for screening for malignant neoplasm of colon (Z12.11) Active confirmed [id number] Problem Preprocedural examination (Z01.818) Active confirmed [id number] Problem Colon cancer screening (Z12.11) Active confirmed Colon cancer screening ([id number]) Encounters Encounter Location Date Provider Diagnosis [facility] [place] [address] [place], [place] [phone] 06/03/2024 Jose Arevalo [facility] [address] [place] [address] 04/23/2024 Jose Arevalo Colon cancer screening Z12.11 [facility] [address] [place] [address] 05/27/2024 Jose Irina [facility] [address] [place] [address] 05/30/2024 Jose Arevalo ASSESSMENTS Encounter Date Diagnosis [...] OF [place] [address] [place] [address] [id number] JOSE CUBA Self - patient is the insured [employer] [address] [place] [address] [id number] JOSE CUBA Self - patient is the insured MEDICAL (GENERAL) HISTORY Medical History History ICD Code Denies DE,DM,CVA,Lung disease,renal dise ase Hyperlipidemia Screening colonoscopy in Mar with Dr. Johansen revealed only hyperplastic polyps. EGD in 08/2017-small HH, normal duodenal and gastric biopsies Surgical History Surgery Date(Month/Year) Lap cholecystectomy--acalculous cholecys titis-Dr. Knutson 05/2017 Finger- infection drained 1969
== END 2024-11-21 13:22 | disposition home or self-care (01) ==
PROVIDERS: PCP Internal Medicine; Visit Provider Internal Medicine
DX: Z00.00 Encounter for general adult medical examination without abnormal findings (principal); I10 Essential (primary) hypertension; E03.2 Hypothyroidism due to medicaments and other exogenous substances; C67.9 Malignant neoplasm of bladder, unspecified; E78.00 Pure hypercholesterolemia, unspecified

== ENCOUNTER → 2024-11-21 12:42 | Outpatient (BNVA) | payer MEDICARE, OTHER, SELFPAY | PROVIDERS: PCP Internal Medicine; Visit Provider Internal Medicine | DX: Z00.00 Encounter for general adult medical examination without abnormal findings (principal); I10 Essential (primary) hypertension; E03.2 Hypothyroidism due to medicaments and other exogenous substances; E78.00 Pure hypercholesterolemia, unspecified; C67.9 Malignant neoplasm of bladder, unspecified | CPT/HCPCS: 96127; 99397 ==

== ENCOUNTER 2024-11-22 06:08 | Outpatient (REF) | payer MEDICARE, OTHER, SELFPAY ==
[2024-11-22 06:19] LABS: MANUAL DIFF FLAG NO
[2024-11-22 06:23] LABS: Basophils Percent Auto 0.2 % (0-2); Eosinophils Percent Auto 0.2 % (0-4); Hematocrit 38.2 % (42.0-52.0); Hemoglobin 12.7 g/dl (14.0-18.0); Imm Gran Abs Auto 0.18 X10*3/uL (0.00-0.03); Imm Gran Pct Auto 2.9 % (0.0-0.4); Lymphocytes Absolute Auto 0.7 X10*3/uL (1.2-4.9); Lymphocytes Percent Auto 11.3 % (20-40); Mean Corpuscular HGB Conc 33.2 g/dl (31.0-36.0); Mean Corpuscular Hemoglobin 32.1 pg (27.0-33.0); Mean Corpuscular Volume 96.5 fL (80.0-98.0); Mean Platelet Volume 9.1 fL (9.4-12.4); Monocytes Absolute Auto 0.5 X10*3/uL (0.1-1.2); Monocytes Percent Auto 7.4 % (2-11); Neutrophils Absolute Auto 4.9 x10*3/uL (2.0-8.3); Platelet Count 111 X10*3/uL (160-400); Red Blood Count 3.96 X10*6/uL (4.60-5.80); Red Cell Distribution Width 16.3 % (11.0-16.0); White Blood Count 6.2 X10*3/uL (4.8-10.8)
[2024-11-22 06:40] LABS: Alanine Aminotransferase 38 U/L (0-40); Albumin Level 3.5 g/dL (3.5-5.0); Alkaline Phosphatase 84 U/L (39-117); Anion Gap 16 (12-20); Aspartate Amino Transferase 31 U/L (5-37); Bilirubin Total 0.5 mg/dL (0.0-1.0); Blood Urea Nitrogen 56 mg/dL (9-16); Calcium 9.1 mg/dL (8.4-10.2); Carbon Dioxide 23 mmol/L (22-29); Chloride 106 mmol/L (96-108); Estimated Glomerular Filt Rate 27; Glucose Random 119 mg/dL (60-115); Potassium 5.2 mmol/L (3.3-5.1); Sodium 140 mmol/L (135-145); Total Protein 6.6 g/dL (6.5-8.0)
[2024-11-22 06:54] LABS: Thyroid Stimulating Hormone 6.71 uIU/mL (0.32-4.0)
== END 2024-11-22 06:09 | disposition home or self-care (01) ==
LOC: HO.LAB 06:08
PROVIDERS: PCP Internal Medicine; Visit Provider Internal Medicine
DX: C67.9 Malignant neoplasm of bladder, unspecified (principal)
CPT/HCPCS: 36415; 80053; 84443; 85025

== ENCOUNTER 2024-11-27 11:58 | Outpatient (REF) | payer MEDICARE, OTHER, SELFPAY ==
--- OUTSIDE RECORDS SUMMARY | 2024-11-27 13:36 | XMS_ITS | Clinical Summary ---
Author Organization [facility] Address [address] [place] [address] Care Team Providers Care Registered Route Associate Name Role Phone Morris Rizzo Primary Care Provider Allergies No known active allergies Medications atorvastatin [...] Cessation:Counseling Given: Not Answered Comments:On and off 3215-1775 smoking, at most 1 PPD Alcohol Use [...] patients) Completed 08/03/2023 Procedures * Due to [place] [employer] law, this organization might not be sharing negative HIV tests. Procedure Name Priority Date/Time Associated Diagnosis Comments AMB EXTERNAL CT CHEST, OUTSI DE RESULT 01/23/2024 from Last 3 Months or Most Recently Relevant to Health Maintenance Results * Due to [place] [employer] law, this organization might not be sharing negative HIV tests. * AMB EXTERNAL CT CHEST, OUTSIDE RESULT (01/23/2024) Anatomical Region Laterality Modality Other [facility]TERNAL RESULT PROCEDURE S Final Result from Last 3 Months or Most Recently Relevant to Health Maintenance Insurance MEDICARE FOR LIFE Advance Directives Documents on File Type Date Recorded Patient Electrician Control Equipment Expl velasquez Health Care Proxy 05/27/2024 7:26 AM Care Teams Registered Route Associate Relationship Specialty Start Date End Date Morris Rizzo [address] [place] [address] Dr Raymond, [place] [address] PCP - General Internal Medicine 01/09/24
--- OUTSIDE RECORDS SUMMARY | 2024-11-27 13:36 | XMS_ITS | Encounter Summary ---
Author Organization [facility] Address [address] [place] [address] Care Team Providers Care Flue Lining Dipper Name Role Phone Morris Rizzo Primary Care Provider [phone] Encounter Details Date Type Department Care Team (Late st Contact Info) Description 04/15/2024 Orders Only [facility] Building Mammography [address] [facility], 5th [place] [address] Shola Arroyo MD [address] [place] [address] Social History Tobacco Use Types Packs/Day Years [...] on filedocumented in this encounter Care Teams Flue Lining Dipper Relationship Specialty Start Date End Date Morris Rizzo [address] [place] [address] [place] [address] PCP - General Internal Medicine 01/09/24 documented as of this encounter
--- OUTSIDE RECORDS SUMMARY | 2024-11-27 13:36 | XMS_ITS | Clinical Summary ---
Author Organization [facility] Address [address] [place] [address] Phone Care Team Providers Care Type Casting Machine Operator Name Role Phone Morris Rizzo MD Primary Care Provider [phone] Social History Tobacco Use Types Packs/Day Years [...] age to complete this topic Care Teams Type Casting Machine Operator Relationship Specialty Start Date End Date Morris Rizzo MD [address] [place] [address] Drive [address] [place] [address] PCP - General Internal Medicine 05/27/22
--- OUTSIDE RECORDS SUMMARY | 2024-11-27 13:36 | XMS_ITS ---
Author Organization [facility] Address [address] [place] [address] Care Team Providers Care Mining Machinery Assembler Name Role Phone Morris Rizzo Primary Care Provider [phone] Active Problems Problem Noted Date Diagnosed Date Hyperkalemia 05/30/2024 Malignant neoplasm of overlapping sites of bladd er 03/04/2024 Other hydronephrosis 03/04/2024 Current Oncology Plans No current plan information found. Past Plans No past plan information found. Radiation Treatments * No radiation treatments are documented for this patient in [facility]. Treatments may have been administered in another system. Lifetime Dose Tracking * Chemical Lifetime Dose Automatic Entry Manual Entr y TotalDLP 1,042 mGy 1,042 mGy 0 mGy [id number] 13.5 mSv 13.5 mSv 0 mSv CTDIvol Max 11.8 mGy 11.8 mGy 0 mGy CTDIvol Min 7.3 mGy 7.3 mGy 0 mGy
--- OUTSIDE RECORDS SUMMARY | 2024-11-27 13:36 | XMS_ITS | Referral Summary ---
Author Organization [facility] Address [address] [place] [address] Care Team Providers Care Mandate Retail Service Merchandiser Name Role Phone Morris Rizzo Primary Care Provider [phone] Allergies No known active allergies Medications atorvastatin [...] Cessation:Counseling Given: Not Answered Comments:On and off [id number] smoking, at most 1 PPD Alcohol Use [...] on file Procedures * Due to [facility] law, this organization might not be sharing negative HIV tests. Procedure Name Priority Date/Time Associated Diagnosis Comments AMB EXTERNAL CT CHEST, OUTSI DE RESULT 01/23/2024 from Last 3 Months or Most Recently Relevant to Health Maintenance Results * Due to [facility] law, this organization might not be sharing negative HIV tests. * AMB EXTERNAL CT CHEST, OUTSIDE RESULT (01/23/2024) Anatomical Region Laterality Modality Other 01/23/2024 us Onbase [facility] AMB EXTERNAL RESULT PROCEDURE S Final Result from Last 3 Months or Most Recently Relevant to Health Maintenance Insurance MEDICARE FOR LIFE Advance Directives Documents on File Type Date Recorded Patient Webbing Inspector Expl [facility] Care Proxy 05/27/2024 7:26 AM Care Teams Mandate Retail Service Merchandiser Relationship Specialty Start Date End Date Morris Rizzo [address] [place] [address] [place] [address] PCP - General Internal Medicine 01/09/24
== END 2024-11-27 11:59 | disposition home or self-care (01) ==
LOC: HO.RADIR 11:58
PROVIDERS: PCP Internal Medicine; Visit Provider Orthopaedic Surgery
DX: G56.03 Carpal tunnel syndrome, bilateral upper limbs (principal); N20.2 Calculus of kidney with calculus of ureter; L85.3 Xerosis cutis; G62.9 Polyneuropathy, unspecified; Z98.890 Other specified postprocedural states
CPT/HCPCS: 99212

== ENCOUNTER 2024-11-27 13:25 | Outpatient (AMB) | payer MEDICARE, OTHER, SELFPAY ==
[2024-11-27 13:52] VITALS: BMI 33.4
--- NOTE | 2024-11-27 13:52 | A.OFFVIS_ITS ---
Vital Signs 11/27/24 13:52 Height 6 ft 2 in Weight 260 lb BMI 33.4 Intake Visit Reasons: OV-Bilateral carpal tunnel syndrome-DOS 01/24/23 Intake Note: Brady is a 64 year old right hand dominant male who presents today for bilateral carpal tunnel syndrome follow up S/P Right carpal tunnel release DOS: 03/17/22. Patient reports right hand numbness and tingling that occurs daily, on and off. He states it makes it hard to open and close lids and jars. Patient states his left hand is not that bad . Allergies No Known Allergies [No Known Allergies*] Allergy (Verified 11/27/24 14:01) HPI HPI OV-Bilateral carpal tunnel syndrome-DOS 01/24/23: Details: Brady is a 64 year old right hand dominant man who returns with ongoing tingling in his right hand, S/P right carpal tunnel release, DOS: 03/17/22. He says he has worsening numbness & tingling in his right hand. Symptoms intermittent, but daily, worse at night.He also complains of some numbness in the back of his hand at times. 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 He also complains of pain & stiffness at times in his hands, along with a change in color. He says this is worse when outside in the cold. He also complains of dry cracking skin on his hands, which he finds painful. He says he gets this every year around August and says this lasts until december. He denies being seen by a Court Specialist for this he says he was recently diagnosed with bladder cancer. He has recently left his job to manage his health. [facility] Medical History History of immune checkpoint inhibitor therapy Hypophysitis Adrenal insufficiency Hypothyroidism Port-A-Cath in place (02/16/24) History of blood transfusion Bladder cancer Obesity (BMI 30-39.9) Pure hypercholesterolemia Hyperlipemia Carpal tunnel syndrome Surgical History Mass of left axilla (05/31/24) Hx of colonoscopy Hx of cystoscopy History of surgery History of hand surgery History of ankle surgery History of cholecystectomy Family History Father Multiple sclerosis, primary progressive Mother No problems noted. 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 Current occupational exposures/hazards: No Cognitive needs: No Hearing needs: No Vision needs: Yes (Glasses) Physical Exam Vital Signs: BMI result Body Mass Index 33.4 Const General: no acute distress and alert Orientation/consciousness: patient oriented x3 Neuro General: patient oriented x3 Extrem Other: Evaluation of right Upper Extremity: The patient is alert, oriented, and in no acute distress Neuro: Decreased subjective sensation to all digits No thenar or intrinsic wasting Good APB muscle belly firing and good finger cross Vascular: Cap refill brisk ROM: He can make a fist and extend all his digits Slight enlargement of the PIP joints of his right hand Severely dry & cracked skin to his bilateral hands. Psych Appearance: grossly normal Affect: normal affect Attitude: cooperative Assessment & Plan Assessment & Plan (1) Bilateral carpal tunnel syndrome: Code(s): G56.03 - Carpal tunnel syndrome, bilateral upper limbs Category: Medical (2) Cubital tunnel syndrome, bilateral: Code(s): G56.23 - Lesion of ulnar nerve, bilateral upper limbs Category: Medical (3) Dry skin: Comment: B/L hands Code(s): L85.3 - Xerosis cutis Category: Medical Plan Assessment & Plan: 1. Right Carpal Tunnel syndrome, S/P Carpal tunnel release DOS: 03/17/22 Pre-operatively with dense numbness With improved but not quite normal sensation following surgery The patient reports worsening numbness & tingling in the last year I ordered a repeat NCS to assess for any new peripheral nerve compression I did again educated him about the fact that any dense numbness that remained after his carpal tunnel release in all likelihood is a result of permanent nerve damage and we will not get better even following another procedure. He will follow up when completed for review 2. Bilateral dry skin of hands Symptoms present annually during the winter months I recommend he speak to a pharmacist concerning OTC moisturizing creams he can use to help his hands heal. 3. Left carpal tunnel syndrome, mild to moderate Less symptomatic, symptoms are only occasional 4. Mild bilateral ulnar neuropathy at the elbow Not particularly symptomatic in the small fingers bilaterally If his symptoms persist or worsen he can follow up to discuss treatment options Scribed for Ora Luek MD by Osmar Lundberg, medical laboratory specialist, on 11/27/24 at 2:25 PM, EST. Coding Level of Care Code Est Pt Level 4 (49918) Diagnoses Bilateral carpal tunnel syndrome G56.03 Cubital tunnel syndrome, bilateral G56.23 Dry skin L85.3
--- OUTSIDE RECORDS SUMMARY | 2024-11-27 14:47 | XMS_ITS ---
Author Organization [facility] Address [address] [place] [address] Care Team Providers Care Sas Analyst Name Role Phone Morris Rizzo Primary Care Provider [phone] Active Problems Problem Noted Date Diagnosed Date Hyperkalemia 05/30/2024 Malignant neoplasm of overlapping sites of bladd er 03/04/2024 Other hydronephrosis 03/04/2024 Current Oncology Plans No current plan information found. Past Plans No past plan information found. Radiation Treatments * No radiation treatments are documented for this patient in [facility]. Treatments may have been administered in another system. Lifetime Dose Tracking * Chemical Lifetime Dose Automatic Entry Manual Entr y TotalDLP 1,042 mGy 1,042 mGy 0 mGy [id number] 13.5 mSv 13.5 mSv 0 mSv CTDIvol Max 11.8 mGy 11.8 mGy 0 mGy CTDIvol Min 7.3 mGy 7.3 mGy 0 mGy
--- OUTSIDE RECORDS SUMMARY | 2024-11-27 14:47 | XMS_ITS | Referral Summary ---
Author Organization [facility] Address [address] [place] [address] Care Team Providers Care Editor Continuity And Script Name Role Phone Morris Rizzo Primary Care Provider [phone] Allergies No known active allergies Medications atorvastatin [...] Cessation:Counseling Given: Not Answered Comments:On and off [id number] smoking, at most 1 PPD Alcohol Use [...] Not on file Procedures * Due to [place] [employer] law, this organization might not be sharing negative HIV tests. Procedure Name Priority Date/Time Associated Diagnosis Comments AMB EXTERNAL CT CHEST, OUTSI DE RESULT 01/23/2024 from Last 3 Months or Most Recently Relevant to Health Maintenance Results * Due to [place] [employer] law, this organization might not be sharing negative HIV tests. * AMB EXTERNAL CT CHEST, OUTSIDE RESULT (01/23/2024) Anatomical Region Laterality Modality Other 01/23/2024 us Onbase [facility] AMB EXTERNAL RESULT PROCEDURE S Final Result from Last 3 Months or Most Recently Relevant to Health Maintenance Insurance MEDICARE FOR LIFE Advance Directives Documents on File Type Date Recorded Patient Dinkey Engine Firer/Fireman Expl [facility] Care Proxy 05/27/2024 7:26 AM Care Teams Editor Continuity And Script Relationship Specialty Start Date End Date Morris Rizzo [address] [place] [address] [place] [address] PCP - General Internal Medicine 01/09/24
--- OUTSIDE RECORDS SUMMARY | 2024-11-27 14:47 | XMS_ITS | Clinical Summary ---
Author Organization [facility] Address [address] [place] [address] Phone Care Team Providers Care Tool And Die Supervisor Name Role Phone Morris Rizzo MD Primary Care Provider Social History Tobacco Use Types Packs/Day Years [...] age to complete this topic Care Teams Tool And Die Supervisor Relationship Specialty Start Date End Date Morris Rizzo MD [address] [place] [address] Drive [address] [place] [address] PCP - General Internal Medicine 05/27/22
--- OUTSIDE RECORDS SUMMARY | 2024-11-27 14:47 | XMS_ITS | Clinical Summary ---
Author Organization [facility] Address [address] [place] [address] Care Team Providers Care Basketballs And Footballs Reverser Name Role Phone Morris Rizzo Primary Care Provider [phone] Allergies No known active allergies Medications atorvastatin [...] Cessation:Counseling Given: Not Answered Comments:On and off [id number] smoking, at most 1 PPD Alcohol Use [...] patients) Completed 08/03/2023 Procedures * Due to [place] [employer] law, this organization might not be sharing negative HIV tests. Procedure Name Priority Date/Time Associated Diagnosis Comments AMB EXTERNAL CT CHEST, OUTSI DE RESULT 01/23/2024 from Last 3 Months or Most Recently Relevant to Health Maintenance Results * Due to [place] [employer] law, this organization might not be sharing negative HIV tests. * AMB EXTERNAL CT CHEST, OUTSIDE RESULT (01/23/2024) Anatomical Region Laterality Modality [facility] PROCEDURE S Final Result from Last 3 Months or Most Recently Relevant to Health Maintenance Insurance MEDICARE FOR LIFE Advance Directives Documents on File Type Date Recorded Patient Energy Broker Expl velas[facility] Health Care Proxy 05/27/2024 7:26 AM Care Teams Basketballs And Footballs Reverser Relationship Specialty Start Date End Date Morris Rizzo [address] [place] [address] Dr [place], [place] [address] PCP - General Internal Medicine 01/09/24
--- OUTSIDE RECORDS SUMMARY | 2024-11-27 14:47 | XMS_ITS | Encounter Summary ---
Author Organization [facility] Address [address] [place] [address] Care Team Providers Care Shop Coordinator Name Role Phone Morris Rizzo Primary Care Provider [phone] Encounter Details Date Type Department Care Team (Late st Contact Info) Description 04/15/2024 Orders Only [facility] ACC Building Mammography [address] [facility], 5th [place] [address] Shola Arroyo MD [address] [place] [address] Social History Tobacco Use Types Packs/Day Years [...] on filedocumented in this encounter Care Teams Shop Coordinator Relationship Specialty Start Date End Date Morris Rizzo [address] [place] [address] [place] [address] PCP - General Internal Medicine 01/09/24 documented as of this encounter
== END 2024-11-27 14:33 | disposition home or self-care (01) ==
PROVIDERS: PCP Internal Medicine; Visit Provider Orthopaedic Surgery
DX: G56.03 Carpal tunnel syndrome, bilateral upper limbs (principal); G56.23 Lesion of ulnar nerve, bilateral upper limbs; L85.3 Xerosis cutis
CPT/HCPCS: 99214

== ENCOUNTER 2024-11-28 10:09 | Outpatient (REF) | payer MEDICARE, OTHER, SELFPAY ==
--- NOTE | ~2024-11-28 | IR_ITS ---
FLUOROSCOPIC RIGHT NEPHROSTOMY TUBE CHANGE History: 64-year-old man with a right nephrostomy tube due to a right ureteral obstruction due to bladder cancer. The patient reports significant leaking of urine around the nephrostomy tube. Procedure: The patient was informed and consented to the procedure. The patient's right back was prepped and draped in routine sterile fashion. 1% lidocaine was administered around the catheter insertion site. A nephrostogram was performed, which demonstrated the catheter located within the soft tissues of the right flank. The catheter was removed. A 5 Maur[place]ian KMP catheter was inserted through the catheter skin entry site. A 0.035 Glidewire was advanced through the catheter and manipulated into the right renal pelvis. The Glidewire was exchanged for an Amplatz wire. [id number], a new 8 Mauritanian locking pigtail catheter was advanced and positioned within the renal pelvis. The catheter was secured to the skin with a 2-0 nylon suture. A sterile dressing was applied. The patient tolerated the procedure well with no immediate complications. Total fluoroscopy time: 2.0 min IR/IR nephrostomy tube change Impression: Successful replacement of dislodged right nephrostomy tube. This procedure was performed by Yoseph Bradshaw PA-C, and supervised by Dr. Mckoy. Electronically signed by: Josef Mckoy MD 12/03/2024 04:52 PM [facility]
--- OUTSIDE RECORDS SUMMARY | 2024-11-28 10:14 | XMS_ITS | Clinical Summary ---
Author Organization [facility] Address [address] [place] [address] Phone Care Team Providers Care Upholsterer Apprentice Name Role Phone Morris Rizzo MD Primary Care Provider [phone] Social History Tobacco Use Types Packs/Day Years [...] age to complete this topic Care Teams Upholsterer Apprentice Relationship Specialty Start Date End Date Morris Rizzo MD [address] [place] [address] Drive [address] [place] [address] PCP - General Internal Medicine 05/27/22
--- OUTSIDE RECORDS SUMMARY | 2024-11-28 10:14 | XMS_ITS | Clinical Summary ---
Author Organization [facility] Address [address] [place] [address] Care Team Providers Care Client Services Director Name Role Phone Morris Rizzo Primary Care Provider [phone] Allergies No known active allergies Medications atorvastatin [...] Cessation:Counseling Given: Not Answered Comments:On and off [id number] smoking, at most 1 PPD Alcohol Use [...] patients) Completed 08/03/2023 Procedures * Due to [place] [employer] law, this organization might not be sharing negative HIV tests. Procedure Name Priority Date/Time Associated Diagnosis Comments AMB EXTERNAL CT CHEST, OUTSI DE RESULT 01/23/2024 from Last 3 Months or Most Recently Relevant to Health Maintenance Results * Due to [place] [employer] law, this organization might not be sharing negative HIV tests. * AMB EXTERNAL CT CHEST, OUTSIDE RESULT (01/23/2024) Anatomical Region Laterality Modality [facility] PROCEDURE S Final Result from Last 3 Months or Most Recently Relevant to Health Maintenance Insurance MEDICARE FOR LIFE Advance Directives Documents on File Type Date Recorded Patient Cane Flume Watcher Expl [facility] Health Care Proxy 05/27/2024 7:26 AM Care Teams Client Services Director Relationship Specialty Start Date End Date Morris Rizzo [address] [place] [address] Dr [place], [place] [address] PCP - General Internal Medicine 01/09/24
--- OUTSIDE RECORDS SUMMARY | 2024-11-28 10:14 | XMS_ITS ---
Author Organization [facility] Address [address] [place] [address] Care Team Providers Care Multilith Operator Name Role Phone Morris Rizzo Primary Care Provider [phone] Active Problems Problem Noted Date Diagnosed Date Hyperkalemia 05/30/2024 Malignant neoplasm of overlapping sites of bladd er 03/04/2024 Other hydronephrosis 03/04/2024 Current Oncology Plans No current plan information found. Past Plans No past plan information found. Radiation Treatments * No radiation treatments are documented for this patient in [facility]. Treatments may have been administered in another system. Lifetime Dose Tracking * Chemical Lifetime Dose Automatic Entry Manual Entr y TotalDLP 1,042 mGy 1,042 mGy 0 mGy [id number] 13.5 mSv 13.5 mSv 0 mSv CTDIvol Max 11.8 mGy 11.8 mGy 0 mGy CTDIvol Min 7.3 mGy 7.3 mGy 0 mGy
--- OUTSIDE RECORDS SUMMARY | 2024-11-28 10:14 | XMS_ITS | Encounter Summary ---
Author Organization [facility] Address [address] [place] [address] Care Team Providers Care Shellfish Manager Name Role Phone Morris Rizzo Primary Care Provider [phone] Encounter Details Date Type Department Care Team (Late st Contact Info) Description 04/15/2024 Orders Only [facility] ACC Building Mammography [address] [facility] 5th [place] [address] Shola Arroyo MD [address] [place] [address] Social History Tobacco Use Types Packs/Day Years [...] on filedocumented in this encounter Care Teams Shellfish Manager Relationship Specialty Start Date End Date Morris Rizzo [address] [place] [address] [place] [address] PCP - General Internal Medicine 01/09/24 documented as of this encounter
--- OUTSIDE RECORDS SUMMARY | 2024-11-28 10:14 | XMS_ITS | Referral Summary ---
Author Organization [facility] Address [address] [place] [address] Care Team Providers Care Account Manager Trainee Name Role Phone Morris Rizzo Primary Care Provider [phone] Allergies No known active allergies Medications atorvastatin [...] Cessation:Counseling Given: Not Answered Comments:On and off [id number] smoking, at most 1 PPD Alcohol Use [...] Not on file Procedures * Due to [place] [employer] law, this organization might not be sharing negative HIV tests. Procedure Name Priority Date/Time Associated Diagnosis Comments AMB EXTERNAL CT CHEST, OUTSI DE RESULT 01/23/2024 from Last 3 Months or Most Recently Relevant to Health Maintenance Results * Due to [place] [employer] law, this organization might not be sharing negative HIV tests. * AMB EXTERNAL CT CHEST, OUTSIDE RESULT (01/23/2024) Anatomical Region Laterality Modality Other 01/23/2024 us Onbase [facility] AMB EXTERNAL RESULT PROCEDURE S Final Result from Last 3 Months or Most Recently Relevant to Health Maintenance Insurance MEDICARE FOR LIFE Advance Directives Documents on File Type Date Recorded Patient Terrazzo Laborer Expl [facility] Care Proxy 05/27/2024 7:26 AM Care Teams Account Manager Trainee Relationship Specialty Start Date End Date Morris Rizzo [address] [place] [address] [place] [address] PCP - General Internal Medicine 01/09/24
== END 2024-11-28 10:10 | disposition home or self-care (01) ==
LOC: HO.RADIR 10:09
PROVIDERS: Visit Provider Orthopaedic Surgery
DX: Z43.6 Encounter for attention to other artificial openings of urinary tract (principal); C67.9 Malignant neoplasm of bladder, unspecified; N13.30 Unspecified hydronephrosis
CPT/HCPCS: 50435; C1729; J2003; Q9967

== ENCOUNTER → 2024-11-28 10:12 | Outpatient (BNV) | payer MEDICARE, OTHER, SELFPAY | PROVIDERS: Visit Provider Physician Assistant Surgical | DX: T83.022A Displacement of nephrostomy catheter, initial encounter (principal) | CPT/HCPCS: 50435 ==

== ENCOUNTER 2024-11-29 06:08 | Outpatient (REF) | payer MEDICARE, OTHER, SELFPAY ==
[2024-11-29 06:25] LABS: Hematocrit 34.9 % (42.0-52.0); Hemoglobin 11.8 g/dl (14.0-18.0); Mean Corpuscular HGB Conc 33.8 g/dl (31.0-36.0); Mean Corpuscular Hemoglobin 32.4 pg (27.0-33.0); Mean Corpuscular Volume 95.9 fL (80.0-98.0); Mean Platelet Volume 9.6 fL (9.4-12.4); NRBC Pct Auto 0.3 /100WBC (0.0-0.2); Red Blood Count 3.64 X10*6/uL (4.60-5.80); White Blood Count 6.2 X10*3/uL (4.8-10.8)
[2024-11-29 06:26] LABS: Platelet Count 98 X10*3/uL (160-400)
[2024-11-29 06:44] LABS: Alanine Aminotransferase 47 U/L (0-40); Albumin Level 3.4 g/dL (3.5-5.0); Alkaline Phosphatase 77 U/L (39-117); Anion Gap 15 (12-20); Aspartate Amino Transferase 53 U/L (5-37); Bilirubin Total 0.6 mg/dL (0.0-1.0); Blood Urea Nitrogen 62 mg/dL (9-16); Calcium 8.6 mg/dL (8.4-10.2); Carbon Dioxide 19 mmol/L (22-29); Chloride 104 mmol/L (96-108); Estimated Glomerular Filt Rate 35; Glucose Random 261 mg/dL (60-115); Potassium 4.9 mmol/L (3.3-5.1); Sodium 133 mmol/L (135-145); Total Protein 6.4 g/dL (6.5-8.0)
[2024-11-29 08:15] LABS: Atypical Lymph Absolute Manual 0.1 x10*3/uL; Atypical Lymphs Percent Manual 1 % (0-6); Band Neutrophils Percent 14 % (3-5); Lymphocytes Absolute Manual 0.3 X10*3/uL (1.2-4.9); Lymphocytes Percent Manual 5 % (20-40); Metamyelocytes Absolute 0.1 X10*3/uL; Metamyelocytes Percent 1 %; Monocytes Absolute Manual 0.1 X10*3/uL (0.1-1.2); Monocytes Percent Manual 1 % (2-11); Myelocytes Absolute 0.1 X10*/uL; Myelocytes Percent 2 %; Neutrophils Absolute Manual 5.6 X10*3/uL (2.0-8.3); Neutrophils Percent Manual 76 % (45-73)
[2024-11-29 08:17] LABS: Burr Cells 1+ (0-2) /OIF; Platelet Estimate DECREASED (NORMAL); Platelet Morphology Comment NORMAL; Polychromasia 1+ (0-2) /OIF; RBC Morphology NOTED
[2024-11-29 17:03] LABS: Thyroid Stimulating Hormone 3.65 uIU/mL (0.32-4.0)
== END 2024-11-29 06:09 | disposition home or self-care (01) ==
LOC: HO.LAB 06:08
PROVIDERS: PCP Internal Medicine; Visit Provider Internal Medicine
DX: C67.9 Malignant neoplasm of bladder, unspecified (principal)
CPT/HCPCS: 36415; 80053; 84443; 85007; 85027

== ENCOUNTER 2024-12-03 10:28 | Outpatient (REF) | payer MEDICARE, OTHER, SELFPAY ==
--- NOTE | ~2024-12-03 | PE_ITS ---
EXAMINATION: FLUORINE-18 FDG PET/CT SCAN CLINICAL INFORMATION: Malignant neoplasm of the bladder. TECHNIQUE: 62 minutes following the intravenous administration of 22.3 mCi of fluorine 18 FDG, images from the skull base to proximal thighs were obtained using a combined PET/CT scanner with CT scan based attenuation correction. No oral or intravenous contrast was administered. Transverse, coronal, sagittal, and volume reconstruction projections were obtained. The patient's blood glucose as determined by a finger stick, was 3805 mg/dL immediately prior to injection. The radiotracer was injected intravenously through the left antecubital vein, without any complications. Total CT exam dose-length product 1190 mGy-cm. * These CT images were obtained using dose optimization techniques as appropriate, variously including the following: Automated exposure control * Adjustment of mA and/or kV according to patient size (this includes techniques or standardized protocols for targeted exams where dose is matched to indication/reason for exam; i.e. extremities or head) * Use of iterative reconstruction technique COMPARISON: None available. FINDINGS: HEAD AND NECK: No abnormal radiotracer uptake. No large intracranial hemorrhage, acute territorial infarct or significant shift of midline structures. There is mild mucoperiosteal thickening of left maxillary sinus. CHEST: Ports and Devices: None Lungs: No abnormal radiotracer uptake. Pleura: No significant pleural effusion. Lymph Nodes: No tracer-avid mediastinal, hilar or internal mammary or axillary lymphadenopathy. Mediastinum: There is no significant pericardial effusion/thickening. There is a right central venous port with its tip in mid to distal SVC. Breasts/Chest Wall: No abnormal radiotracer uptake. ABDOMEN/PELVIS: Liver/Biliary System: No focal tracer-avid liver lesion. The gallbladder has been surgically removed Pancreas: Normal.No FDG activity seen Spleen: No abnormal radiotracer uptake. No evidence of splenomegaly. Adrenal Glands: No abnormal radiotracer uptake. Kidneys: There is a right kidney is small and left with right hydroureteronephrosis with ureteral dilatation extending to the right UV junction. There is a soft tissue density noted. The soft tissue density is not metabolically active. There is no left-sided hydronephrosis. There is an nephrostomy tract seen with mild activity. No nephrostomy catheter seen within. There is nonspecific mild increased activity seen in the left kidney cortex compared to right side Bowel: There is moderate constipation without focal lesion seen. Lymph Nodes: No tracer avid retroperitoneal, mesenteric or pelvic and/or groin lymphadenopathy. Pelvic Organs: The urinary bladder is underdistended. MUSCULOSKELETAL: No FDG activity seen in whole-body skeleton. No lytic or sclerotic process seen. VASCULAR: Abdominal aorta is prominent and not dilated. PET/PET CT fusion skull to thigh IMPRESSION: No abnormal FDG activity seen on whole body scan. Especially no abnormal activity seen in the retroperitoneal or pelvic lymph nodes. The right kidney is smaller compared to left with mild hydronephrosis. There is mild activity seen along the right retroperitoneal nephrostomy tract likely postsurgical.. There is no nephrostomy catheter this time. Rest of the whole body PET CT scan is unremarkable. Electronically signed by: Shemar Cabrera MD 12/03/2024 03:43 PM [facility]
--- OUTSIDE RECORDS SUMMARY | 2024-12-03 11:41 | XMS_ITS ---
Author Organization [facility] Address [address] [place] [address] Care Team Providers Care Lidding Machine Operator Name Role Phone Morris Rizzo Primary Care Provider [phone] Active Problems Problem Noted Date Diagnosed Date Hyperkalemia 05/30/2024 Malignant neoplasm of overlapping sites of bladd er 03/04/2024 Other hydronephrosis 03/04/2024 Current Oncology Plans No current plan information found. Past Plans No past plan information found. Radiation Treatments * No radiation treatments are documented for this patient in [facility]. Treatments may have been administered in another system. Lifetime Dose Tracking * Chemical Lifetime Dose Automatic Entry Manual Entr y TotalDLP 1,042 mGy 1,042 mGy 0 mGy [id number] 13.5 mSv 13.5 mSv 0 mSv CTDIvol Max 11.8 mGy 11.8 mGy 0 mGy CTDIvol Min 7.3 mGy 7.3 mGy 0 mGy
--- OUTSIDE RECORDS SUMMARY | 2024-12-03 11:41 | XMS_ITS ---
Author Organization [facility] Address [address] [place] [address] Care Team Providers Care Chainstitch Sewing Machine Operator Name Role Phone So MCALLISTER, Primary Care Provider Unavaila Jose Doty Unavailable [phone] Eamon MCALLISTER, Zamzam Unavailable Unavailable REASON FOR VISIT CANCEL PROCEDURE Encounters Encounter Location Date Provider Diagnosis [facility] [address] [place] [address] 05/30/2024 Jose Arevalo PLAN OF TREATMENT No Information
--- OUTSIDE RECORDS SUMMARY | 2024-12-03 11:41 | XMS_ITS ---
Author Organization [facility] Address [address] [place] [address] Care Team Providers Care Java Architect Name Role Phone So MCALLISTER, Primary Care Provider Unavaila Jose Doty Unavailable [phone] Eamon MCALLISTER, Zamzam Unavailable Unavailable REASON FOR VISIT colonoscopy Encounters Encounter Location Date Provider Diagnosis [facility] [address] [place] [address] 05/27/2024 Jose Arevalo PLAN OF TREATMENT No Information
--- OUTSIDE RECORDS SUMMARY | 2024-12-03 11:41 | XMS_ITS | Encounter Summary ---
Author Organization [facility] Address [address] [place] [address] Care Team Providers Care Guard Supervisor Name Role Phone Morris Rizzo Primary Care Provider [phone] Encounter Details Date Type Department Care Team (Late st Contact Info) Description 04/15/2024 Orders Only [facility] ACC Building Mammography [address] [facility], 5th [place] [address] Shola Arroyo MD [address] [place] [address] Social History Tobacco Use Types Packs/Day Years [...] on filedocumented in this encounter Care Teams Guard Supervisor Relationship Specialty Start Date End Date Morris Rizzo [address] [place] [address] [place] [address] PCP - General Internal Medicine 01/09/24 documented as of this encounter
--- OUTSIDE RECORDS SUMMARY | 2024-12-03 11:41 | XMS_ITS | Patient Health Record ---
Author Organization [facility] Address [address] [place] [address] Care Team Providers Care Pro Shop Attendant Name Role Phone So MCALLISTER, Primary Care Provider Unavaila Jose Doty Unavailable [phone] Eamon MCALLISTER, Zamzam Unavailable Unavailable REASON FOR [...] Problem Epigastric abdominal pain (R10.13) Active confirmed [id number] Problem Encounter for screening for malignant neoplasm of colon (Z12.11) Active confirmed [id number] Problem Preprocedural examination (Z01.818) Active confirmed [id number] Problem Colon cancer screening (Z12.11) Active confirmed Colon cancer screening (348001074) Encounters Encounter Location Date Provider Diagnosis [facility] Outpatient [address] [place], [place] [phone] 06/03/2024 Jose Arevalo [facility] [address] [place] [phone] 04/23/2024 Jose Arevalo Colon cancer screening Z12.11 [facility] [address] [place] [phone] 05/27/2024 Jose Irina [facility] [address] [place] [address] 05/30/2024 Jose Arevalo ASSESSMENTS Encounter Date Diagnosis [...] Date MEDICARE OF [place] [address] [facility] [place] [address] [id number] JOSE CUBA Self - patient is the insured [employer] [address] [place] [address] [id number] JOSE CUBA Self - patient is the insured MEDICAL (GENERAL) HISTORY Medical History History ICD Code Denies [place],DM,CVA,Lung disease,renal dise ase Hyperlipidemia Screening colonoscopy in Mar with Dr. Johansen revealed only hyperplastic polyps. EGD in 08/2017-small HH, normal duodenal and gastric biopsies Surgical History Surgery Date(Month/Year) Lap cholecystectomy--acalculous cholecys titis-Dr. Knutson 05/2017 Finger- infection drained 1969
--- OUTSIDE RECORDS SUMMARY | 2024-12-03 11:41 | XMS_ITS | Referral Summary ---
Author Organization [facility] Address [address] [place] [address] Care Team Providers Care Fig Caprifier Name Role Phone Morris Rizzo Primary Care Provider [phone] Allergies No known active allergies Medications atorvastatin [...] Cessation:Counseling Given: Not Answered Comments:On and off 8499-8794 smoking, at most 1 PPD Alcohol Use [...] Not on file Procedures * Due to [place] [employer] law, this organization might not be sharing negative HIV tests. Procedure Name Priority Date/Time Associated Diagnosis Comments AMB EXTERNAL CT CHEST, OUTSI DE RESULT 01/23/2024 from Last 3 Months or Most Recently Relevant to Health Maintenance Results * Due to [place] [employer] law, this organization might not be sharing negative HIV tests. * AMB EXTERNAL CT CHEST, OUTSIDE RESULT (01/23/2024) Anatomical Region Laterality Modality Other 01/23/2024 us Onbase [facility] AMB EXTERNAL RESULT PROCEDURE S Final Result from Last 3 Months or Most Recently Relevant to Health Maintenance Insurance MEDICARE FOR LIFE Advance Directives Documents on File Type Date Recorded Patient Fruit Trimmer Expl [facility] Care Proxy 05/27/2024 7:26 AM Care Teams Fig Caprifier Relationship Specialty Start Date End Date Morris Rizzo [address] [place] [address] [place] [address] PCP - General Internal Medicine 01/09/24
--- OUTSIDE RECORDS SUMMARY | 2024-12-03 11:41 | XMS_ITS | Clinical Summary ---
Author Organization [facility] Address [address] [place] [address] Care Team Providers Care Pilot Name Role Phone Morris Rizzo Primary Care Provider [phone] Allergies No known active allergies Medications atorvastatin [...] Cessation:Counseling Given: Not Answered Comments:On and off 6520-2056 smoking, at most 1 PPD Alcohol Use [...] patients) Completed 08/03/2023 Procedures * Due to [place] [employer] law, this organization might not be sharing negative HIV tests. Procedure Name Priority Date/Time Associated Diagnosis Comments AMB EXTERNAL CT CHEST, OUTSI DE RESULT 01/23/2024 from Last 3 Months or Most Recently Relevant to Health Maintenance Results * Due to [place] [employer] law, this organization might not be sharing negative HIV tests. * AMB EXTERNAL CT CHEST, OUTSIDE RESULT (01/23/2024) Anatomical Region Laterality Modality [facility] EX[facility]NAL RESULT PROCEDURE S Final Result from Last 3 Months or Most Recently Relevant to Health Maintenance Insurance MEDICARE FOR LIFE Advance Directives Documents on File Type Date Recorded Patient Car Bracer Expl velasquez Health Care Proxy 05/27/2024 7:26 AM Care Teams Pilot Relationship Specialty Start Date End Date Morris Rizzo [address] [place] [address] Dr Raymond, [place] [address] PCP - General Internal Medicine 01/09/24
--- OUTSIDE RECORDS SUMMARY | 2024-12-03 11:41 | XMS_ITS | Clinical Summary ---
Author Organization [facility] Address [address] [place] [address] Phone Care Team Providers Care Immigration Lawyer Name Role Phone Morris Rizzo MD Primary Care Provider [phone] Social History Tobacco Use Types Packs/Day Years Used Date Smoking Tobacco: Never Assessed Sex and Gender Information Value Date Recorded Sex Assigned at Not on file Legal Sex Male 8:59 PM EST Gender Identity Not on file Sexual Orientation Not on file Plan of Treatment Health Maintenance Due Date Last Done Comments DTaP,Tdap,and Td Vaccines (1 - Tdap) 1965 Pneumococcal Vaccine: 50+ Ye ars (1 of 1 - PCV) 2008 Zoster Vaccines (1 of 2) 2008 Abdominal Aortic Aneurysm (A AA) Screen 09/24/2022 Cholesterol Screening (Lipid Panel) 09/24/2022 Colorectal Cancer Screening: Colonoscopy 09/24/2022 Depression Screening 09/24/2022 Hepatitis C Screening 09/24/2022 Social Influencers of Health Screening 09/24/2022 Falls Risk Assessment 2023 COVID-19 Vaccine ( - 2023-2 5 [...] patient's age to complete this topic Meningococcal B Vacine Aged Out No lo nger eligible based on patient's age to complete this topic RSV Immunization Patients Un pastora 20 months Aged Out No longer eligible b ased on patient's age to complete this topic Varicella Vaccines Aged Out No longer eligible based on patient's age to complete this topic Care Teams Immigration Lawyer Relationship Specialty Start Date End Date Morris Rizzo MD [address] [place] [address] [address] [place] [address] PCP - General Internal Medicine 05/27/22
--- OUTSIDE RECORDS SUMMARY | 2024-12-03 11:42 | XMS_ITS ---
Author Organization [facility] Address [address] [place] [address] Care Team Providers Care Cuff Turner Name Role Phone So MCALLISTER, Primary Care Provider Unavaila Jose Doty Unavailable [phone] Eamon MCALLISTER, Zamzam Lindsay Unavailable REASON FOR VISIT colon screening Encounters Encounter Location Date Provider Diagnosis [facility] [place] Outpatient [address] [place], [place] [phone] 06/03/2024 Jose Arevalo PLAN OF TREATMENT No Information
== END 2024-12-03 10:29 | disposition home or self-care (01) ==
LOC: HO.PET 10:28
PROVIDERS: PCP Internal Medicine; Visit Provider Internal Medicine
DX: Z13.89 Encounter for screening for other disorder (principal)

== ENCOUNTER 2024-12-04 09:13 | Outpatient (REF) | payer MEDICARE, OTHER, SELFPAY ==
--- NOTE | ~2024-12-04 | IR_ITS ---
FLUOROSCOPIC RIGHT NEPHROSTOMY TUBE REPLACEMENT History: 64-year-old man with a right nephrostomy tube due to a right ureteral obstruction due to bladder cancer. The patient reports the drain has completely fallen out. Procedure: The patient was informed and consented to the procedure. The patient's right back was prepped and draped in routine sterile fashion. 1% lidocaine was administered around the catheter insertion site. A 6 Uzbek dilator was inserted through the catheter skin entry site. A 0.035 Glidewire was advanced through the dilator and tract and manipulated into the right renal pelvis. The Glidewire was exchanged for an Amplatz wire. [id number], a new 10 Uzbek locking pigtail catheter was advanced and positioned within the renal pelvis. The catheter was secured to the skin with a 2-0 nylon suture and a stay fix dressing. The patient tolerated the procedure well with no immediate complications. Total fluoroscopy time: 2.2 min IR/IR nephrostomy tube change Impression: Successful replacement and upsize of dislodged right nephrostomy tube. This procedure was performed by Yoseph Bradshaw PA-C, and supervised by Dr. Mckoy. Electronically signed by: Josef Mckoy MD 12/16/2024 04:17 PM [facility]
--- OUTSIDE RECORDS SUMMARY | 2024-12-04 10:14 | XMS_ITS | Clinical Summary ---
Author Organization [facility] Address [address] [place] [address] Phone Care Team Providers Care Lighting Equipment Operator Name Role Phone Morris Rizzo MD Primary Care Provider [phone] Social History Tobacco Use Types Packs/Day Years Used Date Smoking Tobacco: Never Assessed Sex and Gender Information Value Date Recorded Sex Assigned at Not on file Legal Sex Male 8:59 PM EST Gender Identity Not on file Sexual Orientation Not on file Plan of Treatment Health Maintenance Due Date Last Done Comments DTaP,Tdap,and Td Vaccines (1 - Tdap) 1977 Pneumococcal Vaccine: 50+ Ye ars (1 of [...] age to complete this topic Care Teams Lighting Equipment Operator Relationship Specialty Start Date End Date Morris Rizzo MD [address] [place] [address] [address] [place] [address] PCP - General Internal Medicine 05/27/22
--- OUTSIDE RECORDS SUMMARY | 2024-12-04 10:14 | XMS_ITS | Patient Health Record ---
Author Organization [facility] Address [address] [place] [address] Care Team Providers Care Jail Manager Name Role Phone So MCALLISTER, Primary Care Provider Unavaila yaquelin Arevalo Jose Unavailable [phone] Eamon MCALLISTER, Zamzam Unavailable Unavailable REASON FOR [...] Problem Epigastric abdominal pain (R10.13) Active confirmed [id number] Problem Encounter for screening for malignant neoplasm of colon (Z12.11) Active confirmed [id number] Problem Preprocedural examination (Z01.818) Active confirmed [id number] Problem Colon cancer screening (Z12.11) Active confirmed Colon cancer screening (161852575) Encounters Encounter Location Date Provider Diagnosis [facility] [place] [address] [place], [place] [phone] 06/03/2024 Jose Arevalo [facility] [address] [place] [phone] 04/23/2024 Jose Arevalo Colon cancer screening Z12.11 [facility] [address] [place] [phone] 05/27/2024 Jose Irina [facility] [address] [place] [address] 05/30/2024 Jose Arevalo ASSESSMENTS Encounter Date Diagnosis [...] Date MEDICARE OF [place] [address] [place] [address] [id number] JOSE CUBA Self - patient is the insured [employer] [address] [place] [id number] JOSE CUBA Self - patient is the insured MEDICAL (GENERAL) HISTORY Medical History History ICD Code Denies [place],DM,CVA,Lung disease,renal dise ase Hyperlipidemia Screening colonoscopy in Mar with Dr. Johansen revealed only hyperplastic polyps. EGD in 08/2017-small HH, normal duodenal and gastric biopsies Surgical History Surgery Date(Month/Year) Lap cholecystectomy--acalculous cholecys titis-Dr. Knutson 05/2017 Finger- infection drained 1969
--- OUTSIDE RECORDS SUMMARY | 2024-12-04 10:14 | XMS_ITS | Encounter Summary ---
Author Organization [facility] Address [address] [place] [address] Care Team Providers Care University Lecturer Name Role Phone Morris Rizzo Primary Care Provider [phone] Encounter Details Date Type Department Care Team (Late st Contact Info) Description 04/15/2024 Orders Only [facility] Building Mammography [address] [facility], 5th floor [place] [address] Shola Arroyo MD [address] [place] [address] Social History Tobacco Use Types Packs/Day Years [...] on filedocumented in this encounter Care Teams University Lecturer Relationship Specialty Start Date End Date Morris Rizzo [address] [place] [address] [place] [address] PCP - General Internal Medicine 01/09/24 documented as of this encounter
--- OUTSIDE RECORDS SUMMARY | 2024-12-04 10:14 | XMS_ITS ---
Author Organization [facility] Address [address] [place] [address] Care Team Providers Care Reading Assistant Name Role Phone So MCALLISTER, Primary Care Provider Unavaila Jose Doty Unavailable [phone] Eamon MCALLISTER, Zamzam Unavailable Unavailable REASON FOR VISIT CANCEL PROCEDURE Encounters Encounter Location Date Provider Diagnosis [facility] [address] [place] [address] 05/30/2024 Jose Arevalo PLAN OF TREATMENT No Information
--- OUTSIDE RECORDS SUMMARY | 2024-12-04 10:14 | XMS_ITS | Clinical Summary ---
Author Organization [facility] Address [address] [place] [address] Care Team Providers Care Review Rn Name Role Phone Morris Rizzo Primary Care Provider [phone] Allergies No known active allergies Medications atorvastatin [...] Cessation:Counseling Given: Not Answered Comments:On and off 0451-0687 smoking, at most 1 PPD Alcohol Use [...] patients) Completed 08/03/2023 Procedures * Due to [place] [employer] law, this organization might not be sharing negative HIV tests. Procedure Name Priority Date/Time Associated Diagnosis Comments AMB EXTERNAL CT CHEST, OUTSI DE RESULT 01/23/2024 from Last 3 Months or Most Recently Relevant to Health Maintenance Results * Due to [place] [employer] law, this organization might not be sharing negative HIV tests. * AMB EXTERNAL CT CHEST, OUTSIDE RESULT (01/23/2024) Anatomical Region Laterality Modality Other 01/23/2024 [facility] AMB EXTERNAL RESULT PROCEDURE S Final Result from Last 3 Months or Most Recently Relevant to Health Maintenance Insurance MEDICARE FOR LIFE Advance Directives Documents on File Type Date Recorded Patient Credit Interviewer Expl velasquez Health Care Proxy 05/27/2024 7:26 AM Care Teams Review Rn Relationship Specialty Start Date End Date Morris Rizzo [address] [place] [address] Dr Raymond, [place] [address] PCP - General Internal Medicine 01/09/24
--- OUTSIDE RECORDS SUMMARY | 2024-12-04 10:14 | XMS_ITS ---
Author Organization [facility] Address [address] [place] [address] Care Team Providers Care Air Brush Decorator Name Role Phone So MCALLISTER, Primary Care Provider Unavaila Jose Doty Unavailable [phone] Eamon MCALLISTER, Zamzam Unavailable Unavailable REASON FOR VISIT colonoscopy Encounters Encounter Location Date Provider Diagnosis [facility] [address] [place] [address] 05/27/2024 Jose Arevalo PLAN OF TREATMENT No Information
--- OUTSIDE RECORDS SUMMARY | 2024-12-04 10:14 | XMS_ITS ---
Author Organization [facility] Address [address] [place] [address] Care Team Providers Care Manager Assisted Living Name Role Phone So MCALLISTER, Primary Care Provider Unavaila Jose Doty Unavailable [phone] Eamon MCALLISTER, Zamzam Lindsay Unavailable REASON FOR VISIT colon screening Encounters Encounter Location Date Provider Diagnosis [facility] Outpatient [address] [place], [place] [phone] 06/03/2024 Jose Arevalo PLAN OF TREATMENT No Information
--- OUTSIDE RECORDS SUMMARY | 2024-12-04 10:14 | XMS_ITS | Referral Summary ---
Author Organization [facility] Address [address] [place] [address] Care Team Providers Care Gang Ripsaw Operator Name Role Phone Morris Rizzo Primary Care Provider [phone] Allergies No known active allergies Medications atorvastatin [...] Cessation:Counseling Given: Not Answered Comments:On and off 9191-6596 smoking, at most 1 PPD Alcohol Use [...] Not on file Procedures * Due to [place] [employer] law, this organization might not be sharing negative HIV tests. Procedure Name Priority Date/Time Associated Diagnosis Comments AMB EXTERNAL CT CHEST, OUTSI DE RESULT 01/23/2024 from Last 3 Months or Most Recently Relevant to Health Maintenance Results * Due to [place] [employer] law, this organization might not be sharing negative HIV tests. * AMB EXTERNAL CT CHEST, OUTSIDE RESULT (01/23/2024) Anatomical Region Laterality Modality Other 01/23/2024 us Onbase [facility] AMB EXTERNAL RESULT PROCEDURE S Final Result from Last 3 Months or Most Recently Relevant to Health Maintenance Insurance MEDICARE FOR LIFE Advance Directives Documents on File Type Date Recorded Patient Electrical Automation Engineer Expl [facility] Care Proxy 05/27/2024 7:26 AM Care Teams Gang Ripsaw Operator Relationship Specialty Start Date End Date Morris Rizzo [address] [place] [address] [place] [address] PCP - General Internal Medicine 01/09/24
--- OUTSIDE RECORDS SUMMARY | 2024-12-04 10:14 | XMS_ITS ---
Author Organization [facility] Address [address] [place] [address] Care Team Providers Care Coil Winder Strap Name Role Phone Morris Rizzo Primary Care Provider [phone] Active Problems Problem Noted Date Diagnosed Date Hyperkalemia 05/30/2024 Malignant neoplasm of overlapping sites of bladd er 03/04/2024 Other hydronephrosis 03/04/2024 Current Oncology Plans No current plan information found. Past Plans No past plan information found. Radiation Treatments * No radiation treatments are documented for this patient in [facility]. Treatments may have been administered in another system. Lifetime Dose Tracking * Chemical Lifetime Dose Automatic Entry Manual Entr y TotalDLP 1,042 mGy 1,042 mGy 0 mGy [id number] 13.5 mSv 13.5 mSv 0 mSv CTDIvol Max 11.8 mGy 11.8 mGy 0 mGy CTDIvol Min 7.3 mGy 7.3 mGy 0 mGy
== END 2024-12-04 09:14 | disposition home or self-care (01) ==
LOC: HO.RADIR 09:13
PROVIDERS: Visit Provider Urology
DX: Z43.6 Encounter for attention to other artificial openings of urinary tract (principal); C67.9 Malignant neoplasm of bladder, unspecified
CPT/HCPCS: 50435; C1729; J2003; Q9967

== ENCOUNTER → 2024-12-04 09:17 | Outpatient (BNV) | payer MEDICARE, OTHER, SELFPAY | PROVIDERS: Visit Provider Physician Assistant Surgical | DX: N13.9 Obstructive and reflux uropathy, unspecified (principal) | CPT/HCPCS: 50435 ==

== ENCOUNTER 2024-12-06 06:02 | Outpatient (REF) | payer MEDICARE, OTHER, SELFPAY ==
[2024-12-06 06:27] LABS: MANUAL DIFF FLAG NO
[2024-12-06 06:29] LABS: Basophils Percent Auto 0.3 % (0-2); Eosinophils Percent Auto 0.2 % (0-4); Hemoglobin 11.8 g/dl (14.0-18.0); Imm Gran Abs Auto 0.27 X10*3/uL (0.00-0.03); Imm Gran Pct Auto 4.1 % (0.0-0.4); Lymphocytes Absolute Auto 0.6 X10*3/uL (1.2-4.9); Lymphocytes Percent Auto 9.2 % (20-40); Mean Corpuscular HGB Conc 34.7 g/dl (31.0-36.0); Mean Corpuscular Hemoglobin 32.9 pg (27.0-33.0); Mean Corpuscular Volume 94.7 fL (80.0-98.0); Mean Platelet Volume 9.8 fL (9.4-12.4); Monocytes Absolute Auto 0.4 X10*3/uL (0.1-1.2); Monocytes Percent Auto 6.5 % (2-11); Neutrophils Absolute Auto 5.3 x10*3/uL (2.0-8.3); Neutrophils Percent Auto 79.7 % (45-73); Platelet Count 112 X10*3/uL (160-400); Red Blood Count 3.59 X10*6/uL (4.60-5.80); Red Cell Distribution Width 15.7 % (11.0-16.0); White Blood Count 6.6 X10*3/uL (4.8-10.8)
[2024-12-06 06:50] LABS: Alanine Aminotransferase 51 U/L (0-40); Albumin Level 3.4 g/dL (3.5-5.0); Alkaline Phosphatase 86 U/L (39-117); Anion Gap 14 (12-20); Aspartate Amino Transferase 40 U/L (5-37); Bilirubin Total 0.5 mg/dL (0.0-1.0); Blood Urea Nitrogen 57 mg/dL (9-16); Calcium 8.9 mg/dL (8.4-10.2); Carbon Dioxide 24 mmol/L (22-29); Chloride 106 mmol/L (96-108); Estimated Glomerular Filt Rate 34; Glucose Random 219 mg/dL (60-115); Potassium 4.3 mmol/L (3.3-5.1); Sodium 140 mmol/L (135-145); Total Protein 6.3 g/dL (6.5-8.0)
[2024-12-06 07:05] LABS: Thyroid Stimulating Hormone 2.89 uIU/mL (0.32-4.0)
== END 2024-12-06 06:03 | disposition home or self-care (01) ==
LOC: HO.LAB 06:02
PROVIDERS: PCP Internal Medicine; Visit Provider Internal Medicine
DX: C67.9 Malignant neoplasm of bladder, unspecified (principal)
CPT/HCPCS: 36415; 80053; 84443; 85025

== ENCOUNTER 2024-12-13 06:05 | Outpatient (REF) | payer MEDICARE, OTHER, SELFPAY ==
--- OUTSIDE RECORDS SUMMARY | 2024-12-13 06:07 | XMS_ITS | Encounter Summary ---
Author Organization [facility] Address [address] [place] [address] Care Team Providers Care Wheat And Oats Flake Miller Name Role Phone Morris Rizzo Primary Care Provider [phone] Encounter Details Date Type Department Care Team (Late st Contact Info) Description 04/15/2024 Orders Only [facility] ACC Building Mammography [address] [facility], 5th [place] [address] Shola Arroyo MD [address] [place] [address] Social History Tobacco Use Types Packs/Day Years [...] on filedocumented in this encounter Care Teams Wheat And Oats Flake Miller Relationship Specialty Start Date End Date Morris Rizzo [address] [place] [address] [place] [address] PCP - General Internal Medicine 01/09/24 documented as of this encounter
--- OUTSIDE RECORDS SUMMARY | 2024-12-13 06:07 | XMS_ITS ---
Author Organization [facility] Address [address] [place] [address] Care Team Providers Care Leadership Recruiter Name Role Phone Morris Rizzo Primary Care Provider [phone] Active Problems Problem Noted Date Diagnosed Date Hyperkalemia 05/30/2024 Malignant neoplasm of overlapping sites of bladd er 03/04/2024 Other hydronephrosis 03/04/2024 Current Treatment and Therapy Plans No current plan information found. Past Treatment and Therapy Plans No past plan information found. Lifetime Dose Tracking * Chemical Lifetime Dose Automatic Entry Manual Entr y TotalDLP 1,042 mGy 1,042 mGy 0 mGy [id number] 13.5 mSv 13.5 mSv 0 mSv CTDIvol Max 11.8 mGy 11.8 mGy 0 mGy CTDIvol Min 7.3 mGy 7.3 mGy 0 mGy
--- OUTSIDE RECORDS SUMMARY | 2024-12-13 06:07 | XMS_ITS | Patient Health Record ---
Author Organization [facility] Address [address] [place] [address] Care Team Providers Care Core Maker Helper Name Role Phone So MCALLISTER, Primary Care Provider Unavaila Jose Doty Unavailable [phone] Eamon MCALLISTER, Zamzam Unavailable Unavailable REASON FOR [...] Problem Epigastric abdominal pain (R10.13) Active confirmed [id number] Problem Encounter for screening for malignant neoplasm of colon (Z12.11) Active confirmed [id number] Problem Preprocedural examination (Z01.818) Active confirmed [id number] Problem Colon cancer screening (Z12.11) Active confirmed Colon cancer screening (681085110) Encounters Encounter Location Date Provider Diagnosis [facility] Outpatient [address] [place], [place] [phone] 06/03/2024 Jose Arevalo [facility] [address] [place] [address] 04/23/2024 Jose Arevalo Colon cancer screening Z12.11 [facility] [address] [place] [address] 05/27/2024 Jose Irina [facility] [address] [place] [address] 05/30/2024 Jose Arevalo ASSESSMENTS Encounter Date Diagnosis [...] Date MEDICARE OF [place] [address] [facility] [place] [address] [phone] [id number] JOSE CUBA Self - patient is the insured [employer] [address] [place] [id number] JOSE CUBA Self - patient is the insured MEDICAL (GENERAL) HISTORY Medical History History ICD Code Denies [place],DM,CVA,Lung disease,renal dise ase Hyperlipidemia Screening colonoscopy in Mar with Dr. Johansen revealed only hyperplastic polyps. EGD in 08/2017-small HH, normal duodenal and gastric biopsies Surgical History Surgery Date(Month/Year) Lap cholecystectomy--acalculous cholecys titis-Dr. Knutson 05/2017 Finger- infection drained 1969
--- OUTSIDE RECORDS SUMMARY | 2024-12-13 06:07 | XMS_ITS | Clinical Summary ---
Author Organization [facility] Address [address] [place] [address] Phone Care Team Providers Care Textile Machinery Instructor Name Role Phone Morris Rizzo MD Primary Care Provider [phone] Social History Tobacco Use Types Packs/Day Years [...] age to complete this topic Care Teams Textile Machinery Instructor Relationship Specialty Start Date End Date Morris Rizzo MD [address] [place] [address] [address] [place] [address] PCP - General Internal Medicine 05/27/22
--- OUTSIDE RECORDS SUMMARY | 2024-12-13 06:07 | XMS_ITS ---
Author Organization [facility] Address [address] [place] [address] Care Team Providers Care Airline Customer Service Agent Name Role Phone So MCALLISTER, Primary Care Provider Unavaila Jose Doty Unavailable [phone] Eamon MCALLISTER, Zamzam Unavailable Unavailable REASON FOR VISIT colonoscopy Encounters Encounter Location Date Provider Diagnosis [facility] [address] [place] [address] 05/27/2024 Jose Arevalo PLAN OF TREATMENT No Information
--- OUTSIDE RECORDS SUMMARY | 2024-12-13 06:07 | XMS_ITS | Referral Summary ---
Author Organization [facility] Address [address] [place] [address] Care Team Providers Care Eating Disorder Specialist Name Role Phone Morris Rizzo Primary Care Provider [phone] Allergies No known active allergies Medications atorvastatin [...] Cessation:Counseling Given: Not Answered Comments:On and off 7975-2906 smoking, at most 1 PPD Alcohol Use [...] Not on file Procedures * Due to [place] [employer] law, this organization might not be sharing negative HIV tests. Procedure Name Priority Date/Time Associated Diagnosis Comments AMB EXTERNAL CT CHEST, OUTSI DE RESULT 01/23/2024 from Last 3 Months or Most Recently Relevant to Health Maintenance Results * Due to [place] [employer] law, this organization might not be sharing negative HIV tests. * AMB EXTERNAL CT CHEST, OUTSIDE RESULT (01/23/2024) Anatomical Region Laterality Modality Other 01/23/2024 us Onbase [facility] AMB EXTERNAL RESULT PROCEDURE S Final Result from Last 3 Months or Most Recently Relevant to Health Maintenance Insurance MEDICARE FOR LIFE Advance Directives Documents on File Type Date Recorded Patient Grade And Center Marker Expl [facility] Care Proxy 05/27/2024 7:26 AM Care Teams Eating Disorder Specialist Relationship Specialty Start Date End Date Morris Rizzo [address] [place] [address] [place] [address] PCP - General Internal Medicine 01/09/24
--- OUTSIDE RECORDS SUMMARY | 2024-12-13 06:07 | XMS_ITS ---
Author Organization [facility] Address [address] [place] [address] Care Team Providers Care Service Station Console Operator Name Role Phone So MCALLISTER, Primary Care Provider Unavaila Jose Doty Unavailable [phone] Eamon MCALLISTER, Zamzam Unavailable Unavailable REASON FOR VISIT CANCEL PROCEDURE Encounters Encounter Location Date Provider Diagnosis [facility] [address] [place] [address] 05/30/2024 Jose Arevalo PLAN OF TREATMENT No Information
--- OUTSIDE RECORDS SUMMARY | 2024-12-13 06:07 | XMS_ITS ---
Author Organization [facility] Address [address] [place] [address] Care Team Providers Care Oil Spreader Operator Name Role Phone So MCALLISTER, Primary Care Provider Unavaila Jose Doty Unavailable [phone] Eamon MCALLISTER, Zamzam Lindsay Unavailable REASON FOR VISIT colon screening Encounters Encounter Location Date Provider Diagnosis [facility] [place] [address] [place], [place] [phone] 06/03/2024 Jose Arevalo PLAN OF TREATMENT No Information
--- OUTSIDE RECORDS SUMMARY | 2024-12-13 06:07 | XMS_ITS | Clinical Summary ---
Author Organization [facility] Address [address] [place] [address] Care Team Providers Care Rn Otolaryngology Name Role Phone Morris Rizzo Primary Care Provider [phone] Allergies No known active allergies Medications atorvastatin [...] Cessation:Counseling Given: Not Answered Comments:On and off 5230-5429 smoking, at most 1 PPD Alcohol Use [...] patients) Completed 08/03/2023 Procedures * Due to [place] [employer] law, this organization might not be sharing negative HIV tests. Procedure Name Priority Date/Time Associated Diagnosis Comments AMB EXTERNAL CT CHEST, OUTSI DE RESULT 01/23/2024 from Last 3 Months or Most Recently Relevant to Health Maintenance Results * Due to [place] [employer] law, this organization might not be sharing negative HIV tests. * AMB EXTERNAL CT CHEST, OUTSIDE RESULT (01/23/2024) Anatomical Region Laterality Modality Other [facility] RESULT PROCEDURE S Final Result from Last 3 Months or Most Recently Relevant to Health Maintenance Insurance MEDICARE FOR LIFE Advance Directives Documents on File Type Date Recorded Patient Gristmiller Expl velasquez Health Care Proxy 05/27/2024 7:26 AM Care Teams Rn Otolaryngology Relationship Specialty Start Date End Date Morris Rizzo [address] [place] [address] Dr Raymond, [place] [address] PCP - General Internal Medicine 01/09/24
[2024-12-13 06:18] LABS: Hematocrit 34.4 % (42.0-52.0); Hemoglobin 11.7 g/dl (14.0-18.0); Mean Corpuscular Hemoglobin 32.5 pg (27.0-33.0); Mean Corpuscular Volume 95.6 fL (80.0-98.0); Mean Platelet Volume 10.1 fL (9.4-12.4); NRBC Pct Auto 0.7 /100WBC (0.0-0.2); Platelet Count 139 X10*3/uL (160-400); Red Cell Distribution Width 16.3 % (11.0-16.0); White Blood Count 7.3 X10*3/uL (4.8-10.8)
[2024-12-13 06:39] LABS: Alanine Aminotransferase 44 U/L (0-40); Albumin Level 3.5 g/dL (3.5-5.0); Alkaline Phosphatase 86 U/L (39-117); Anion Gap 15 (12-20); Aspartate Amino Transferase 35 U/L (5-37); Bilirubin Total 0.5 mg/dL (0.0-1.0); Blood Urea Nitrogen 55 mg/dL (9-16); Carbon Dioxide 23 mmol/L (22-29); Chloride 108 mmol/L (96-108); Estimated Glomerular Filt Rate 38; Glucose Random 178 mg/dL (60-115); Potassium 4.9 mmol/L (3.3-5.1); Sodium 141 mmol/L (135-145); Total Protein 6.5 g/dL (6.5-8.0)
[2024-12-13 06:53] LABS: Thyroid Stimulating Hormone 1.41 uIU/mL (0.32-4.0)
[2024-12-13 07:13] LABS: Band Neutrophils Percent 10 % (3-5); Lymphocytes Absolute Manual 0.4 X10*3/uL (1.2-4.9); Lymphocytes Percent Manual 5 % (20-40); Monocytes Absolute Manual 0.3 X10*3/uL (0.1-1.2); Monocytes Percent Manual 4 % (2-11); Neutrophils Absolute Manual 6.6 X10*3/uL (2.0-8.3); Neutrophils Percent Manual 81 % (45-73)
[2024-12-13 07:15] LABS: Basophilic Stippling 1+ (0-2) /OIF; Platelet Estimate DECREASED (NORMAL); Platelet Morphology Comment NORMAL; Polychromasia 1+ (0-2) /OIF; RBC Morphology NOTED; Tear Drop Cells 1+ (0-2) /OIF
== END 2024-12-13 06:06 | disposition home or self-care (01) ==
LOC: HO.LAB 06:05
PROVIDERS: Visit Provider Internal Medicine
DX: C67.9 Malignant neoplasm of bladder, unspecified (principal)
CPT/HCPCS: 36415; 80053; 84443; 85007; 85027

== ENCOUNTER 2024-12-20 06:02 | Outpatient (REF) | payer MEDICARE, OTHER, SELFPAY ==
--- OUTSIDE RECORDS SUMMARY | 2024-12-20 06:05 | XMS_ITS | Patient Health Record ---
Author Organization [facility] Address [address] [place] [address] Care Team Providers Care Elderly Sitter Name Role Phone So MCALLISTER, Primary Care Provider Unavaila yaquelin Arevalo Jose Unavailable [phone] Eamon MCALLISTER, Zamzam Unavailable Unavailable REASON FOR [...] W/U Status Risk SNOMED Code Notes Problem Colon cancer screening (Z12.11) Active confirmed Colon cancer screening (859077002) Problem Epigastric abdominal pain (R10.13) Active confirmed 93648658 Problem Encounter for screening for malignant neoplasm of colon (Z12.11) Active confirmed 155163408 Problem Preprocedural examination (Z01.818) Active confirmed [id number] Encounters Encounter Location Date Provider Diagnosis [facility] [place] [address] [place], [place] [phone] 06/03/2024 Jose Arevalo [facility] [address] [place] [address] 04/23/2024 Jose Arevalo Colon cancer screening Z12.11 [facility] [address] [place] [address] 05/27/2024 Jose Irina [facility] [address] [place] [address] 05/30/2024 Jose Arevalo ASSESSMENTS Encounter Date Diagnosis [...] [address] [place] [address] [id number] JOSE CUBA Self - patient is the insured [employer] [address] [place] [id number] JOSE CUBA Self - patient is the insured MEDICAL (GENERAL) HISTORY Medical History History ICD Code Denies [place],DM,CVA,Lung disease,renal dise ase Hyperlipidemia Screening colonoscopy in [place] with Dr. Johansen revealed only hyperplastic polyps. EGD in 08/2017-small HH, normal duodenal and gastric biopsies Surgical History Surgery Date(Month/Year) Lap cholecystectomy--acalculous cholecys titis-Dr. Knutson 05/2017 Finger- infection drained 1969
--- OUTSIDE RECORDS SUMMARY | 2024-12-20 06:05 | XMS_ITS | Clinical Summary ---
Author Organization [facility] Address [address] [place] [address] Care Team Providers Care Sap Basis Architect Name Role Phone Morris Rizzo Primary Care Provider [phone] Allergies No known active allergies Medications atorvastatin [...] Cessation:Counseling Given: Not Answered Comments:On and off 3069-6001 smoking, at most 1 PPD Alcohol Use [...] patients) Completed 08/03/2023 Procedures * Due to [place] [employer] law, this organization might not be sharing negative HIV tests. Procedure Name Priority Date/Time Associated Diagnosis Comments AMB EXTERNAL CT CHEST, OUTSI DE RESULT 01/23/2024 from Last 3 Months or Most Recently Relevant to Health Maintenance Results * Due to [place] [employer] law, this organization might not be sharing negative HIV tests. * AMB EXTERNAL CT CHEST, OUTSIDE RESULT (01/23/2024) Anatomical Region Laterality Modality Other [facility]TERNAL RES[facility] PROCEDURE S Final Result from Last 3 Months or Most Recently Relevant to Health Maintenance Insurance MEDICARE FOR LIFE Advance Directives Documents on File Type Date Recorded Patient Clam Picker Expl velasquez Health Care Proxy 05/27/2024 7:26 AM Care Teams Sap Basis Architect Relationship Specialty Start Date End Date Morris Rizzo [address] [place] [address] Dr Raymond, [place] [address] PCP - General Internal Medicine 01/09/24
--- OUTSIDE RECORDS SUMMARY | 2024-12-20 06:05 | XMS_ITS ---
Author Organization [facility] Address [address] [place] [address] Care Team Providers Care Articulation Officer Name Role Phone Morris Rizzo Primary Care Provider [phone] Active Problems Problem Noted Date Diagnosed Date Hyperkalemia 05/30/2024 Malignant neoplasm of overlapping sites of bladd er 03/04/2024 Other hydronephrosis 03/04/2024 Current Treatment and Therapy Plans No current plan information found. Past Treatment and Therapy Plans No past plan information found. Lifetime Dose Tracking * Chemical Lifetime Dose Automatic Entry Manual Entr y TotalDLP 1,042 mGy 1,042 mGy 0 mGy [id number] 13.5 mSv 13.5 mSv 0 mSv CTDIvol Max 11.8 mGy 11.8 mGy 0 mGy CTDIvol Min 7.3 mGy 7.3 mGy 0 mGy
--- OUTSIDE RECORDS SUMMARY | 2024-12-20 06:05 | XMS_ITS ---
Author Organization [facility] Address [address] [place] [address] Care Team Providers Care First Calender Worker Name Role Phone So MCALLISTER, Primary Care Provider Unavaila Jose Doty Unavailable [phone] Eamon MCALLISTER, Zamzam Lindsay Unavailable REASON FOR VISIT colon screening Encounters Encounter Location Date Provider Diagnosis [facility] Outpatient [address] [place], [place] [id number] 06/03/2024 Jose Arevalo PLAN OF TREATMENT No Information
--- OUTSIDE RECORDS SUMMARY | 2024-12-20 06:05 | XMS_ITS ---
Author Organization [facility] Address [address] [place] [address] Care Team Providers Care Researcher Name Role Phone So MCALLISTER, Primary Care Provider Unavaila Jose Doty Unavailable [phone] Eamon MCALLISTER, Zamzam Unavailable Unavailable REASON FOR VISIT CANCEL PROCEDURE Encounters Encounter Location Date Provider Diagnosis [facility] [address] [place] [address] 05/30/2024 Jose Arevalo PLAN OF TREATMENT No Information
--- OUTSIDE RECORDS SUMMARY | 2024-12-20 06:05 | XMS_ITS | Encounter Summary ---
Author Organization [facility] Address [address] [place] [address] Care Team Providers Care Operations Professional Name Role Phone Morris Rizzo Primary Care Provider [phone] Encounter Details Date Type Department Care Team (Late st Contact Info) Description 04/15/2024 Orders Only [facility] ACC Building Mammography [address] [facility], 5th [place] [address] Shola Arroyo MD [address] [place] [address] Social History Tobacco Use Types Packs/Day Years [...] on filedocumented in this encounter Care Teams Operations Professional Relationship Specialty Start Date End Date Morris Rizzo [address] [place] [address] [place] [address] PCP - General Internal Medicine 01/09/24 documented as of this encounter
--- OUTSIDE RECORDS SUMMARY | 2024-12-20 06:05 | XMS_ITS | Referral Summary ---
Author Organization [facility] Address [address] [place] [address] Care Team Providers Care Toy Parts Former Supervisor Name Role Phone Morris Rizzo Primary Care Provider [phone] Allergies No known active allergies Medications atorvastatin [...] Cessation:Counseling Given: Not Answered Comments:On and off 9216-3360 smoking, at most 1 PPD Alcohol Use [...] on file Procedures * Due to [place] [employer] law, this organization might not be sharing negative HIV tests. Procedure Name Priority Date/Time Associated Diagnosis Comments AMB EXTERNAL CT CHEST, OUTSI DE RESULT 01/23/2024 from Last 3 Months or Most Recently Relevant to Health Maintenance Results * Due to [place] [employer] law, this organization might not be sharing negative HIV tests. * AMB EXTERNAL CT CHEST, OUTSIDE RESULT (01/23/2024) Anatomical Region Laterality Modality Other 01/23/2024 us Onbase [facility] AMB EXTERNAL RESULT PROCEDURE S Final Result from Last 3 Months or Most Recently Relevant to Health Maintenance Insurance MEDICARE FOR LIFE Advance Directives Documents on File Type Date Recorded Patient Auditor Medical Claims Expl [facility] Care Proxy 05/27/2024 7:26 AM Care Teams Toy Parts Former Supervisor Relationship Specialty Start Date End Date Morris Rizzo [address] [place] [address] [place] [address] PCP - General Internal Medicine 01/09/24
--- OUTSIDE RECORDS SUMMARY | 2024-12-20 06:05 | XMS_ITS | Clinical Summary ---
Author Organization [facility] Address [address] [place] [address] Phone Care Team Providers Care Consolidation Accountant Name Role Phone Morris Rizzo MD Primary Care Provider [phone] Social History Tobacco Use Types Packs/Day Years [...] age to complete this topic Care Teams Consolidation Accountant Relationship Specialty Start Date End Date Morris Rizzo MD [address] [place] [address] [address] [place] [address] PCP - General Internal Medicine 05/27/22
[2024-12-20 06:15] LABS: Hematocrit 35.5 % (42.0-52.0); Hemoglobin 12.1 g/dl (14.0-18.0); Mean Corpuscular HGB Conc 34.1 g/dl (31.0-36.0); Mean Corpuscular Hemoglobin 32.8 pg (27.0-33.0); Mean Corpuscular Volume 96.2 fL (80.0-98.0); Mean Platelet Volume 10.2 fL (9.4-12.4); NRBC Pct Auto 0.7 /100WBC (0.0-0.2); Platelet Count 143 X10*3/uL (160-400); Red Blood Count 3.69 X10*6/uL (4.60-5.80); Red Cell Distribution Width 16.1 % (11.0-16.0); White Blood Count 9.1 X10*3/uL (4.8-10.8)
[2024-12-20 06:34] LABS: Alanine Aminotransferase 45 U/L (0-40); Albumin Level 3.5 g/dL (3.5-5.0); Alkaline Phosphatase 89 U/L (39-117); Anion Gap 15 (12-20); Aspartate Amino Transferase 45 U/L (5-37); Bilirubin Total 0.5 mg/dL (0.0-1.0); Blood Urea Nitrogen 65 mg/dL (9-16); Calcium 9.5 mg/dL (8.4-10.2); Carbon Dioxide 24 mmol/L (22-29); Chloride 106 mmol/L (96-108); Estimated Glomerular Filt Rate 29; Glucose Random 186 mg/dL (60-115); Sodium 140 mmol/L (135-145); Total Protein 6.8 g/dL (6.5-8.0)
[2024-12-20 06:38] LABS: Band Neutrophils Percent 5 % (3-5); Lymphocytes Absolute Manual 0.3 X10*3/uL (1.2-4.9); Lymphocytes Percent Manual 3 % (20-40); Metamyelocytes Absolute 0.2 X10*3/uL; Metamyelocytes Percent 2 %; Monocytes Absolute Manual 0.3 X10*3/uL (0.1-1.2); Monocytes Percent Manual 3 % (2-11); Neutrophils Absolute Manual 8.4 X10*3/uL (2.0-8.3); Neutrophils Percent Manual 87 % (45-73)
[2024-12-20 06:39] LABS: Burr Cells 1+ (0-2) /OIF; Ovalocytes 1+ (5-14) /OIF; Polychromasia 1+ (0-2) /OIF; RBC Morphology NOTED; Tear Drop Cells 1+ (0-2) /OIF
[2024-12-20 06:41] LABS: Platelet Estimate DECREASED (NORMAL); Platelet Morphology Comment NORMAL
[2024-12-20 06:49] LABS: Thyroid Stimulating Hormone 1.39 uIU/mL (0.32-4.0)
== END 2024-12-20 06:03 | disposition home or self-care (01) ==
LOC: HO.LAB 06:02
PROVIDERS: Visit Provider Internal Medicine
DX: C67.9 Malignant neoplasm of bladder, unspecified (principal)
CPT/HCPCS: 36415; 80053; 84443; 85007; 85027

== ENCOUNTER 2024-12-26 09:16 | Outpatient (AMB) | payer MEDICARE, OTHER, SELFPAY ==
[2024-12-26 09:30] VITALS: BP 124/86; PULSE 115; O2SAT 96; BMI 31.7
--- NOTE | 2024-12-26 09:30 | HO.NEPHOV_ITS ---
Vital Signs 12/26/24 09:30 Height 6 ft 2 in Weight 247 lb BMI 31.7 BP 124/86 Blood Pressure Location Rt brachial Position Sitting Pulse 115 H Pulse Source Pulse Oximeter Pulse Oximetry (%) 96 Oxygen Delivery Method Room Air Intake Visit Reasons: Renal insufficiency 8wk fu/ Conf Image Archivist Required: No Accompanied by: Self / Same As Patient Allergies No Known Allergies [No Known Allergies*] Allergy (Verified 12/26/24 09:33) Medication List - Last Reconciled 12/26/24 by Km Figueroa MD albuterol sulfate 90 mcg/actuation 2 puffs inhalation Q6H PRN amlodipine 10 mg (2 x 5 mg) PO DAILY atorvastatin 20 mg PO BEDTIME 90 days azithromycin (Zithromax) 250 mg PO DAILY levothyroxine 100 mcg PO DAILY@1300 needle (disp) 18 G (BD Regular Bevel Felicity) As directed to draw hydrocortisone in case of emergency omeprazole 20 mg PO DAILY ondansetron 8 mg PO Q8H PRN prednisone 100 mg (5 x 20 mg) PO DAILY syringe with needle (BD Luer-Shiv Syringe) As directed to be used to inject hydrocortisone in case of emergency HPI Comments Details: 63M PMH metastatic baldder cancer s/p TURBT and right nephrostomy on immunotherapy, secondary adrenal insufficiency, hypothryoid, HTN, HLD, GERD, CT urogram performed 12/06/2023 revealed moderate right hydronephrosis extending down to bladder, large heterogenous mass in the right side of bladder involving right lateral bladder wall, right UVJ region and posterior inferior base of the bladder extending toward the left UVJ concerning for bladder neoplasm. Mass is irregular in shape and difficult to measure. There is stranding of the adjacent perivesicular fat, small right retroperitoneal lymph node seen. Staging CT chest and bone scan did not show evidence of metastatic disease. Clinical stage T2/3 N0. He underwent TURBT on 12/12/2023 which revealed a necrotic bladder tumor involving right lateral wall and right trigone, right ureteral orifice was not visualized. Biopsy revealed invasive urothelial carcinoma, high-grade, tumor invades muscularis propria, lymphatic vessel invasion is identified. IHC showed focal positivity for CK20, negative for synaptophysin and chromogranin. MSI, PD-L1 positive, expression is 100% and NGS negative all pertinent mutations. (MET Exon 14 deletion, negative for alk, BRAF, FGFR 1/2/3/4, notch 1 and 2, ret and ROS1) He had right fluoroscopic guided placement of nephrostomy tube in the right kidney on 02/12/2024. He started neoadjuvant chemotherapy with cisplatin 70 mg/m2/gemcitabine 1000mg/m2 D 1 and 8 q 21 days from 02/27/2024 until 04/2024. Unfortunately, PET-CT performed at [facility] in 06/11/2024 showed multiple subcutaneous and intramuscular nodules demonstrating [id number] FDG uptake. Predominantly in the left axilla, left gluteal region. Moderate FDG uptake corresponding to right posterolateral bladder mass. No FDG avid abdominopelvic lymphadenopathy. Patient underwent ultrasound-guided biopsy of left gluteal mass which revealed metastatic poorly differentiated carcinoma. Immunostains showed positivity for CK7, focal positive tiara 3 compatible with metastatic urothelial carcinoma. Recently hospitalized for GORDON. Creatinine peaked at 3.8. He was on Pembrolizumab and this was stopped. He was given IV hydration and discharged home since he was nonoliguric. He is here for follow-up. Creatinine is decreased to 2.9. Overall he feels okay no specific complaints today. He has a follow-up appointment with the oncologist next week 12/25/2024. Being actively followed by Oncology. Resumed enfortumab vedotin since 10/2024. Repeat PET scan on 12/03/2024 showed no abnormal SUV activity, he is in remission. [facility] Medical History History of immune checkpoint inhibitor therapy Hypophysitis Adrenal insufficiency Hypothyroidism Port-A-Cath in place (02/16/24) History of blood transfusion Bladder cancer Obesity (BMI 30-39.9) Pure hypercholesterolemia Hyperlipemia Carpal tunnel syndrome Surgical History Mass of left axilla (05/31/24) Hx of colonoscopy Hx of cystoscopy History of surgery History of hand surgery History of ankle surgery History of cholecystectomy Family History Father Multiple sclerosis, primary progressive Mother No problems noted. 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 Lungs entry equal no rales. Heart S1-S2 heard no gallop or rub. Abdomen soft nontender. Neuro alert awake oriented. No asterixis. Extremities no edema. Results Reviewed Nephrology Results: Hgb 12.1 g/dl (14.0-18.0) L 12/20/24 WBC 9.1 X10*3/uL (4.8-10.8) 12/20/24 Plt Count 143 X10*3/uL (160-400) L 12/20/24 Sodium 140 mmol/L (135-145) 12/20/24 Potassium 5.0 mmol/L (3.3-5.1) 12/20/24 Chloride 106 mmol/L (96-108) 12/20/24 Carbon Dioxide 24 mmol/L (22-29) 12/20/24 BUN 65 mg/dL (9-16) H 12/20/24 Creatinine 2.27 mg/dL (0.5-1.4) H 12/20/24 Calcium 9.5 mg/dL (8.4-10.2) 12/20/24 Assessment & Plan Assessment & Plan (1) GORDON (acute kidney injury): Code(s): N17.9 - Acute kidney failure, unspecified Category: Medical (2) Adrenal insufficiency: Code(s): E27.40 - Unspecified adrenocortical insufficiency Category: Medical (3) CKD stage 3b, GFR 30-44 ml/min: Code(s): N18.32 - Chronic kidney disease, stage 3b Category: Medical (4) Invasive carcinoma of urinary bladder: Code(s): C67.9 - Malignant neoplasm of bladder, unspecified Category: Medical Plan 64-year-old man with invasive bladder carcinoma. 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 He sustained superimposed GORDON most likely due to check point inhibitors. Serum creatinine peaked at 3.8 and has subsequently decreased to 2.9. Baseline creatinine is around 2.0. Fluid status is optimal. Hypertension Blood pressure is acceptable. No changes were made to his regimen. Adrenal insufficiency currently on prednisone and is being managed by Dr. Brady. Shall continue to follow along with the team Coding Level of Care Code Est Pt Level 4 (79940) Diagnoses GORDON (acute kidney injury) N17.9 Adrenal insufficiency E27.40 CKD stage 3b, GFR 30-44 ml/min N18.32 Invasive carcinoma of urinary bladder C67.9
--- OUTSIDE RECORDS SUMMARY | 2024-12-26 10:20 | XMS_ITS ---
Author Organization [facility] Address [address] [place] [address] Care Team Providers Care Ladle Liner Name Role Phone So MCALLISTER, Primary Care Provider Unavaila Jose Doty Unavailable [phone] Eamon MCALLISTER, Zamzam Lindsay Unavailable REASON FOR VISIT colon screening Encounters Encounter Location Date Provider Diagnosis [facility] [address] [facility] [id number] 06/03/2024 Jose Arevalo Plan Of Treatment No Information Progress Notes * JOSE CUBADOB:1960 (64 yo M)Acc No.[id number]:06/03/2024 COLON WITH MAC Patient:?JOSE CUBA Provider:?Jose Arevalo MD :1960???Age:63 Y???Sex:Male Curt e:06/03/2024 Address:[address] [place] [address] [address] [facility] Pcp:Morris Rizzo MD Subjective: * Chief Complaints: * ???1. Colon screening. * Medical History:? Objective: * Vitals:? Assessment: Plan: * Treatment: * * The named appointment provid er may or may not be the originator of this progress note, and it is not deemed complete until electronically signed by the appointment provider. Sign off status: Pending * Provider:?Jose Arevalo MD Date:? 024 Generated for Sade cerda/Todd/eThaileesmitting on:?12/26/2024 10:20 AM EST
--- OUTSIDE RECORDS SUMMARY | 2024-12-26 10:20 | XMS_ITS | Referral Summary ---
Author Organization [facility] Address [address] [place] [address] Care Team Providers Care Processing Mgr Name Role Phone Morris Rizzo Primary Care Provider [phone] Allergies No known active allergies Medications atorvastatin [...] Cessation:Counseling Given: Not Answered Comments:On and off [phone] smoking, at most 1 PPD Alcohol Use [...] on file Procedures * Due to [place] [employer] law, this organization might not be sharing negative HIV tests. Procedure Name Priority Date/Time Associated Diagnosis Comments AMB EXTERNAL CT CHEST, OUTSI DE RESULT 01/23/2024 from Last 3 Months or Most Recently Relevant to Health Maintenance Results * Due to [place] [employer] law, this organization might not be sharing negative HIV tests. 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
--- OUTSIDE RECORDS SUMMARY | 2024-12-26 10:20 | XMS_ITS | Encounter Summary ---
Author Organization [facility] Address [address] [place] [address] Care Team Providers Care Third Rigger Name Role Phone Morris Rizzo Primary Care Provider [phone] Encounter Details Date Type Department Care Team (Late st Contact Info) Description 04/15/2024 Orders Only [facility] ACC Building Mammography [address] [facility], 5th [place] [address] Shola Arroyo MD [address] [place] [address] Social History Tobacco Use Types Packs/Day Years [...] on filedocumented in this encounter Care Teams Third Rigger Relationship Specialty Start Date End Date Morris Rizzo [address] [place] [address] [place] [address] PCP - General Internal Medicine 01/09/24 documented as of this encounter
--- OUTSIDE RECORDS SUMMARY | 2024-12-26 10:20 | XMS_ITS | Clinical Summary ---
Author Organization [facility] Address [address] [place] [address] Phone Care Team Providers Care Hay Sorter Name Role Phone Morris Rizzo MD Primary Care Provider [phone] Social History Tobacco Use Types Packs/Day Years [...] age to complete this topic Care Teams Hay Sorter Relationship Specialty Start Date End Date Morris Rizzo MD [address] [place] [address] [address] [place] [address] PCP - General Internal Medicine 05/27/22
--- OUTSIDE RECORDS SUMMARY | 2024-12-26 10:20 | XMS_ITS ---
Author Organization [facility] Address [address] [place] [address] Care Team Providers Care Inhalation Therapist Name Role Phone So MCALLISTER, Primary Care Provider Unavaila Jose Doty Unavailable [phone] Eamon MCALLISTER, Zamzam Lindsay Unavailable REASON FOR VISIT CANCEL PROCEDURE Encounters Encounter Location Date Provider Diagnosis [facility] [address] [place] [address] 05/30/2024 Jose Arevalo Plan Of Treatment No Information Progress Notes * BEREKET JOSEDOB:1960 (63 yo M)Acc No.[id number]:05/30/2024 Patient:?JOSE CUBA :1960???Age:63 Y???Sex:Male Address:[address] [place] [address] LILY Batres [place], [address] * true * Date:? Generated for Sade cerda/Todd/eTransmitting on:?12/26/2024 10:20 AM EST
--- OUTSIDE RECORDS SUMMARY | 2024-12-26 10:20 | XMS_ITS | Clinical Summary ---
Author Organization [facility] Address [address] [place] [address] Care Team Providers Care Certified Personal Trainer Name Role Phone Morris Rizzo Primary Care Provider [phone] Allergies No known active allergies Medications atorvastatin [...] Cessation:Counseling Given: Not Answered Comments:On and off 5197-3256 smoking, at most 1 PPD Alcohol Use [...] Completed 08/03/2023 Procedures * Due to [place] [employer] law, this organization might not be sharing negative HIV tests. Procedure Name Priority Date/Time Associated Diagnosis Comments AMB EXTERNAL CT CHEST, OUTSI DE RESULT 01/23/2024 from Last 3 Months or Most Recently Relevant to Health Maintenance Results * Due to [place] [employer] law, this organization might not be sharing negative HIV tests. * AMB EXTERNAL CT CHEST, OUTSIDE RESULT (01/23/2024) Anatomical Region Laterality Modality Other 01/23/2024 Onbase [facility] AMB EXTERNAL RESULT PROCEDURE S Final Result from Last 3 Months or Most Recently Relevant to Health Maintenance Insurance MEDICARE FOR LIFE Advance Directives Documents on File Type Date Recorded Patient Purse Framer Expl velasquez Health Care Proxy 05/27/2024 7:26 AM Care Teams Certified Personal Trainer Relationship Specialty Start Date End Date Morris Rizzo [address] [place] [address] [place] [address] PCP - General Internal Medicine 01/09/24
--- OUTSIDE RECORDS SUMMARY | 2024-12-26 10:20 | XMS_ITS ---
Author Organization [facility] Address [address] [place] [address] Care Team Providers Care Credit Negotiator Name Role Phone So MCALLISTER, Primary Care Provider Unavaila Jose Doty Unavailable [phone] Eamon MCALLISTER, Zamzam Lindsay Unavailable REASON FOR VISIT colonoscopy Encounters Encounter Location Date Provider Diagnosis [facility] [address] [place] [phone] 05/27/2024 Jose Arevalo Plan Of Treatment No Information Progress Notes * SEANJOSE ESTESDOB:1960 (63 yo M)Acc No.[id number]:05/27/2024 Patient:?JOSE CUBA :1960???Age:63 Y???Sex:Male Address:[address] [place] [address] [place] [place], [address] * true * Date:? Generated for Sade cerda/Todd/eTransmitting on:?12/26/2024 10:19 AM EST
--- OUTSIDE RECORDS SUMMARY | 2024-12-26 10:20 | XMS_ITS ---
Author Organization [facility] Address [address] [place] [address] Care Team Providers Care Tanker Service Attendant Name Role Phone Morris Rizzo Primary Care Provider [phone] Active Problems Problem Noted Date Diagnosed Date Hyperkalemia 05/30/2024 Malignant neoplasm of overlapping sites of bladd er 03/04/2024 Other hydronephrosis 03/04/2024 Current Treatment and Therapy Plans No current plan information found. Past Treatment and Therapy Plans No past plan information found. Lifetime Dose Tracking * Chemical Lifetime Dose Automatic Entry Manual Entr y TotalDLP 1,042 mGy 1,042 mGy 0 mGy [id number] 13.5 mSv 13.5 mSv 0 mSv CTDIvol Max 11.8 mGy 11.8 mGy 0 mGy CTDIvol Min 7.3 mGy 7.3 mGy 0 mGy
--- OUTSIDE RECORDS SUMMARY | 2024-12-26 10:20 | XMS_ITS | Patient Health Record ---
Author Organization [facility] Address [address] [place] [address] Care Team Providers Care Precision Grinder External Name Role Phone So MCALLISTER, Primary Care Provider Unavaila Jose Doty Unavailable [phone] Eamon MCALLISTER, Zamzam Unavailable Unavailable Reason For Referral No Information Medications Medication SIG (Take, Route, Frequency, Duration) Notes Start Date End Date Status Atorvastatin Calcium 20 MG 1 tablet Oral ly Once a day Active Vitamin D3 1000 UNIT 1 tablet Orally Onc e a day Active Immunizations Vaccine Route Administration Date Status Comme nts Influenza Unknown 09/05/2018 Administered Social History Tobacco Use: Social History Observation Description Date Details (start date - stop date) Former Smoker NA - NA Tobacco Use/Smoking Question Answer Notes Patient is [...] Never (0 point) Points 1 Interpretation Negative Section Notes: Nonsmoker since 2016; no sig alcohol Nonsmoker since 2016; no sig alcohol Problems Problem Type SNOMED Code ICD Code Onset Dates Problem Status W/U Status Risk Notes Problem Colon cancer screening (691803183) Colon cancer screening (Z12.11) Active confirmed Problem 74722067 Epigastric abdominal pain (R10.13) Active confirmed Problem 199671340 Encounter for screening for malignant neoplasm of colon (Z12.11) Active confirmed Problem 979411225685889 Preprocedural examination (Z01.818) Active confirmed Encounters Encounter Location Date Provider Diagnosis [facility] [address] [place] [address] 04/23/2024 Jose Arevalo Colon cancer screening Z12.11 [facility] [address] [place] [address] 05/27/2024 Jose Arevalo [facility] [address] [place] [address] 05/30/2024 Jose Arevalo Assessments Encounter Date Diagnosis (ICD Code) Assessment Notes Treatment Notes Treatment Clinical Notes Section Notes 04/23/2024 Colon cancer screening (ICD-10 - Z12.11) Plan Of Treatment Future Test Test Name Order Date UPPER GI ENDOSCOPY 08/23/2017 COLONOSCOPY 04/10/2019 COLONOSCOPY 04/26/2024 Insurance Providers Payer Name Payer Address Payer Phone Subscriber Number Group Number Insured Name Patient Relationship to Insured Coverage Start Date Coverage End Date MEDICARE OF [place] [address] [place] [address] [id number] JOSE CUBA Self - patient is the insured [employer] [address] [place] [address] [id number] JOSE CUBA Self - patient is the insured Medical (General) History Medical History History ICD Code Denies [place],DM,CVA,Lung disease,renal dise ase Hyperlipidemia Screening colonoscopy in Mar with Dr. Johansen revealed only hyperplastic polyps. EGD in 08/2017-small HH, normal duodenal and gastric biopsies Surgical History Surgery Date(Month/Year) Lap cholecystectomy--acalculous cholecys titis-Dr. Knutson 05/2017 Finger- infection drained 1969
== END 2024-12-26 10:01 | disposition home or self-care (01) ==
PROVIDERS: PCP Internal Medicine; Visit Provider Internal Medicine Hypertension Specialist
DX: N17.9 Acute kidney failure, unspecified (principal); E27.40 Unspecified adrenocortical insufficiency; N18.32 Chronic kidney disease, stage 3b; C67.9 Malignant neoplasm of bladder, unspecified
CPT/HCPCS: 99214

== ENCOUNTER → 2024-12-26 09:16 | Outpatient (BNVA) | payer MEDICARE, OTHER, SELFPAY | PROVIDERS: PCP Internal Medicine; Visit Provider Internal Medicine Hypertension Specialist | DX: I12.9 Hypertensive chronic kidney disease with stage 1 through stage 4 chronic kidney disease, or unspecified chronic kidney disease (principal); N18.32 Chronic kidney disease, stage 3b; N17.9 Acute kidney failure, unspecified; E27.40 Unspecified adrenocortical insufficiency; C67.9 Malignant neoplasm of bladder, unspecified | CPT/HCPCS: 99212 ==

== ENCOUNTER 2024-12-27 09:33 | Outpatient (REF) | payer MEDICARE, OTHER, SELFPAY ==
--- NOTE | ~2024-12-27 | XR_ITS ---
EXAMINATION: XR CHEST 2 VIEWS HISTORY: cough, SOB COMPARISON: Comparison is made with the prior examination dated 05/15/2024. FINDINGS: PA and lateral views of the chest are submitted. A right-sided port is unchanged in position. The lungs are expanded and clear. There is no pleural effusion, pneumothorax, or pulmonary vascular congestion. The heart is normal in size. The bones are intact. XR/XR chest 2V IMPRESSION: No acute cardiopulmonary abnormality. Electronically signed by: Brady Andrade MD 12/31/2024 10:31 AM EDT
[2024-12-27 09:55] LABS: MANUAL DIFF FLAG NO
--- OUTSIDE RECORDS SUMMARY | 2024-12-27 10:24 | XMS_ITS | Clinical Summary ---
Author Organization [facility] Address [address] [place] [address] Care Team Providers Care Digital Sales Planner Name Role Phone Morris Rizzo Primary Care Provider [phone] Allergies No known active allergies Medications atorvastatin [...] Cessation:Counseling Given: Not Answered Comments:On and off 6612-8991 smoking, at most 1 PPD Alcohol Use [...] patients) Completed 08/03/2023 Procedures * Due to [place] [employer] law, this organization might not be sharing negative HIV tests. Procedure Name Priority Date/Time Associated Diagnosis Comments AMB EXTERNAL CT CHEST, OUTSI DE RESULT 01/23/2024 from Last 3 Months or Most Recently Relevant to Health Maintenance Results * Due to [place] [employer] law, this organization might not be sharing negative HIV tests. 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
--- OUTSIDE RECORDS SUMMARY | 2024-12-27 10:24 | XMS_ITS | Clinical Summary ---
Author Organization [facility] Address [address] [place] [address] Phone Care Team Providers Care Vacuum Drum Drier Operator Name Role Phone Morris Rizzo MD Primary Care Provider [phone] Social History Tobacco Use Types Packs/Day Years [...] age to complete this topic Care Teams Vacuum Drum Drier Operator Relationship Specialty Start Date End Date Morris Rizzo MD [address] [place] [address] [address] [place] [address] PCP - General Internal Medicine 05/27/22
--- OUTSIDE RECORDS SUMMARY | 2024-12-27 10:24 | XMS_ITS ---
Author Organization [facility] Address [address] [place] [address] Care Team Providers Care Master Automotive Technician Name Role Phone So MCALLISTER, Primary Care Provider Unavaila Jose Doty Unavailable [phone] Eamon MCALLISTER, Zamzam Lindsay Unavailable REASON FOR VISIT colonoscopy Encounters Encounter Location Date Provider Diagnosis [facility] [address] [place] [phone] 05/27/2024 Jose Arevalo Plan Of Treatment No Information Progress Notes * SEANJOSE ESTESDOB:1960 (63 yo M)Acc No.[id number]:05/27/2024 Patient:?JOSE CUBA :1960???Age:63 Y???Sex:Male Address:[address] [place] [address] [place], [address] * true * Date:? Generated for Sade cerda/Todd/eTransmitting on:?12/27/2024 10:24 AM EST
--- OUTSIDE RECORDS SUMMARY | 2024-12-27 10:24 | XMS_ITS | Referral Summary ---
Author Organization [facility] Address [address] [place] [address] Care Team Providers Care Splunk Consultant Name Role Phone Morris Rizzo Primary Care Provider [phone] Allergies No known active allergies Medications atorvastatin [...] Cessation:Counseling Given: Not Answered Comments:On and off 1524-9351 smoking, at most 1 PPD Alcohol Use [...] Not on file Procedures * Due to [place] [employer] law, this organization might not be sharing negative HIV tests. Procedure Name Priority Date/Time Associated Diagnosis Comments AMB EXTERNAL CT CHEST, OUTSI DE RESULT 01/23/2024 from Last 3 Months or Most Recently Relevant to Health Maintenance Results * Due to [place] [employer] law, this organization might not be sharing negative HIV tests. 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
--- OUTSIDE RECORDS SUMMARY | 2024-12-27 10:24 | XMS_ITS | Encounter Summary ---
Author Organization [facility] Address [address] [place] [address] Care Team Providers Care Pourer Buggy Ladle Name Role Phone Morris Rizzo Primary Care Provider Encounter Details Date Type Department Care Team (Late st Contact Info) Description 04/15/2024 Orders Only [facility] Mammography [address] [facility], 5th [place] [address] Shola Arroyo MD [address] [place] [address] Social History Tobacco Use Types Packs/Day Years [...] on filedocumented in this encounter Care Teams Pourer Buggy Ladle Relationship Specialty Start Date End Date Morris Rizzo [address] [place] [address] [place] [address] PCP - General Internal Medicine 01/09/24 documented as of this encounter
--- OUTSIDE RECORDS SUMMARY | 2024-12-27 10:25 | XMS_ITS ---
Author Organization [facility] Address [address] [place] [address] Care Team Providers Care Cathode Builder Name Role Phone Morris Rizzo Primary Care Provider [phone] Active Problems Problem Noted Date Diagnosed Date Hyperkalemia 05/30/2024 Malignant neoplasm of overlapping sites of bladd er 03/04/2024 Other hydronephrosis 03/04/2024 Current Treatment and Therapy Plans No current plan information found. Past Treatment and Therapy Plans No past plan information found. Lifetime Dose Tracking * Chemical Lifetime Dose Automatic Entry Manual Entr y TotalDLP 1,042 mGy 1,042 mGy 0 mGy [id number] 13.5 mSv 13.5 mSv 0 mSv CTDIvol Max 11.8 mGy 11.8 mGy 0 mGy CTDIvol Min 7.3 mGy 7.3 mGy 0 mGy
--- OUTSIDE RECORDS SUMMARY | 2024-12-27 10:25 | XMS_ITS | Patient Health Record ---
Author Organization [facility] Address [address] [place] [address] Care Team Providers Care Advertising Photographer Name Role Phone So MCALLISTER, Primary Care Provider Unavaila Jose Doty Unavailable [phone] Eamon MCALLISTER, Zamzam Unavailable Unavailable Reason For [...] Status Risk Notes Problem Colon cancer screening (889388901) Colon cancer screening (Z12.11) Active confirmed Problem 38846331 Epigastric abdominal pain (R10.13) Active confirmed Problem 822613589 Encounter for screening for malignant neoplasm of colon (Z12.11) Active confirmed Problem [id number] Preprocedural examination (Z01.818) Active confirmed Encounters Encounter Location Date Provider Diagnosis [facility] [address] [place] [address] 04/23/2024 Jose Arevalo Colon cancer screening Z12.11 [facility] [address] [place] [address] 05/27/2024 Jose Arevalo [facility] [address] [place] [address] 05/30/2024 Jose Arevalo Assessments Encounter Date Diagnosis [...] Date MEDICARE OF [place] [address] [place] [address] [id number] JOSE CUBA Self - patient is the insured [employer] [address] [place] [address] [id number] JOSE CUBA Self - patient is the insured Medical (General) History Medical History History ICD Code Denies CA,DM,CVA,Lung disease,renal dise ase Hyperlipidemia Screening colonoscopy in Mar with Dr. Johansen revealed only hyperplastic polyps. EGD in 08/2017-small HH, normal duodenal and gastric biopsies Surgical History Surgery Date(Month/Year) Lap cholecystectomy--acalculous cholecys titis-Dr. Knutson 05/2017 Finger- infection drained 1969
--- OUTSIDE RECORDS SUMMARY | 2024-12-27 10:25 | XMS_ITS ---
Author Organization [facility] Address [address] [place] [address] Care Team Providers Care Cathodic Protection Technician Name Role Phone So MCALLISTER, Primary Care Provider Unavaila Jose Doty Unavailable [phone] Eamon MCALLISTER, Zamzam Lindsay Unavailable REASON FOR VISIT colon screening Encounters Encounter Location Date Provider Diagnosis [facility] [address] [facility] [place] [id number] 06/03/2024 Jose Arevalo Plan Of Treatment No Information Progress Notes * JOSE CUBADOB:1960 (64 yo M)Acc No.[id number]:06/03/2024 COLON WITH MAC Patient:?JOSE CUBA Provider:?Jose Arevalo MD :1960???Age:63 Y???Sex:Male Curt e:06/03/2024 Address:[address] [place] [address] [facility] Pcp:Morris Rizzo MD Subjective: * Chief Complaints: [...] MD Date:? 024 Generated for Sade cerda/Todd/eThaileesmitting on:?12/27/2024 10:24 AM EST
--- OUTSIDE RECORDS SUMMARY | 2024-12-27 10:25 | XMS_ITS ---
Author Organization [facility] Address [address] [place] [address] Care Team Providers Care Tavern Operator Name Role Phone So MCALLISTER, Primary Care Provider Unavaila Jose Doty Unavailable [phone] Eamon MCALLISTER, Zamzam Lindsay Unavailable REASON FOR VISIT CANCEL PROCEDURE Encounters Encounter Location Date Provider Diagnosis [facility] [address] [place] [address] 05/30/2024 Jose Arevalo Plan Of Treatment No Information Progress Notes * BEREKET JOSEDOB:1960 (63 yo M)Acc No.[id number]:05/30/2024 Patient:?JOSE CUBA :1960???Age:63 Y???Sex:Male Address:[address] [place] [address] L[address] Batres [place], [address] * true * Date:? Generated for Sade cerda/Todd/eTransmitting on:?12/27/2024 10:24 AM EST
[2024-12-27 10:33] LABS: Basophils Percent Auto 0.3 % (0-2); Hematocrit 35.4 % (42.0-52.0); Hemoglobin 12.3 g/dl (14.0-18.0); Imm Gran Abs Auto 0.14 X10*3/uL (0.00-0.03); Imm Gran Pct Auto 1.8 % (0.0-0.4); Lymphocytes Absolute Auto 0.8 X10*3/uL (1.2-4.9); Lymphocytes Percent Auto 10.2 % (20-40); Mean Corpuscular HGB Conc 34.7 g/dl (31.0-36.0); Mean Corpuscular Hemoglobin 31.9 pg (27.0-33.0); Mean Corpuscular Volume 91.9 fL (80.0-98.0); Monocytes Absolute Auto 0.5 X10*3/uL (0.1-1.2); Monocytes Percent Auto 6.3 % (2-11); NRBC Pct Auto 0.3 /100WBC (0.0-0.2); Neutrophils Absolute Auto 6.2 x10*3/uL (2.0-8.3); Neutrophils Percent Auto 81.4 % (45-73); Platelet Count 156 X10*3/uL (160-400); Red Blood Count 3.85 X10*6/uL (4.60-5.80); Red Cell Distribution Width 16.1 % (11.0-16.0); White Blood Count 7.6 X10*3/uL (4.8-10.8)
[2024-12-27 11:11] LABS: Alanine Aminotransferase 43 U/L (0-40); Albumin Level 3.4 g/dL (3.5-5.0); Alkaline Phosphatase 81 U/L (39-117); Anion Gap 16 (12-20); Aspartate Amino Transferase 51 U/L (5-37); Bilirubin Total 0.7 mg/dL (0.0-1.0); Blood Urea Nitrogen 64 mg/dL (9-16); Calcium 9.4 mg/dL (8.4-10.2); Carbon Dioxide 24 mmol/L (22-29); Chloride 103 mmol/L (96-108); Estimated Glomerular Filt Rate 34; Glucose Random 115 mg/dL (60-115); Potassium 4.6 mmol/L (3.3-5.1); Sodium 138 mmol/L (135-145); Total Protein 6.9 g/dL (6.5-8.0)
[2024-12-27 11:31] LABS: Thyroid Stimulating Hormone 1.37 uIU/mL (0.32-4.0)
== END 2024-12-27 09:34 | disposition home or self-care (01) ==
LOC: HO.LAB 09:33
PROVIDERS: PCP Internal Medicine; Visit Provider Internal Medicine
DX: C67.9 Malignant neoplasm of bladder, unspecified (principal)
CPT/HCPCS: 36415; 71046; 80053; 84443; 85025

== ENCOUNTER → 2024-12-27 11:20 | Outpatient (BNV) | payer MEDICARE, OTHER, SELFPAY | PROVIDERS: PCP Internal Medicine; Visit Provider Radiology Diagnostic Radiology | DX: R06.02 Shortness of breath (principal) | CPT/HCPCS: 71046 ==

== ENCOUNTER 2025-01-03 06:15 | Outpatient (REF) | payer MEDICARE, OTHER, SELFPAY ==
[2025-01-03 06:39] LABS: Hematocrit 34.9 % (42.0-52.0); Hemoglobin 12.4 g/dl (14.0-18.0); Mean Corpuscular HGB Conc 35.5 g/dl (31.0-36.0); Mean Corpuscular Hemoglobin 32.5 pg (27.0-33.0); Mean Corpuscular Volume 91.6 fL (80.0-98.0); Mean Platelet Volume 10.7 fL (9.4-12.4); Platelet Count 147 X10*3/uL (160-400); Red Blood Count 3.81 X10*6/uL (4.60-5.80); Red Cell Distribution Width 16.4 % (11.0-16.0); White Blood Count 10.5 X10*3/uL (4.8-10.8)
[2025-01-03 06:57] LABS: Alanine Aminotransferase 51 U/L (0-40); Albumin Level 3.4 g/dL (3.5-5.0); Alkaline Phosphatase 86 U/L (39-117); Anion Gap 18 (12-20); Aspartate Amino Transferase 43 U/L (5-37); Bilirubin Total 0.7 mg/dL (0.0-1.0); Blood Urea Nitrogen 72 mg/dL (9-16); Calcium 9.2 mg/dL (8.4-10.2); Carbon Dioxide 21 mmol/L (22-29); Chloride 105 mmol/L (96-108); Estimated Glomerular Filt Rate 27; Glucose Random 131 mg/dL (60-115); Sodium 139 mmol/L (135-145); Total Protein 6.7 g/dL (6.5-8.0)
[2025-01-03 07:12] LABS: Thyroid Stimulating Hormone 0.58 uIU/mL (0.32-4.0)
[2025-01-03 07:44] LABS: Band Neutrophils Percent 6 % (3-5); Lymphocytes Absolute Manual 1.3 X10*3/uL (1.2-4.9); Lymphocytes Percent Manual 12 % (20-40); Monocytes Absolute Manual 0.3 X10*3/uL (0.1-1.2); Monocytes Percent Manual 3 % (2-11); Neutrophils Absolute Manual 8.9 X10*3/uL (2.0-8.3); Neutrophils Percent Manual 79 % (45-73); Nucleated Red Blood Cells 2 /100WBC (0-0)
[2025-01-03 07:49] LABS: Microcytosis 1+ (5-14) /OIF; RBC Morphology NOTED; Tear Drop Cells 1+ (0-2) /OIF
[2025-01-03 07:50] LABS: Platelet Estimate SLIGHTLY DECREASED (NORMAL); Platelet Morphology Comment NORMAL; Polychromasia 1+ (0-2) /OIF
== END 2025-01-03 06:16 | disposition home or self-care (01) ==
LOC: HO.LAB 06:15
PROVIDERS: PCP Internal Medicine; Visit Provider Internal Medicine
DX: C67.9 Malignant neoplasm of bladder, unspecified (principal)
CPT/HCPCS: 36415; 80053; 84443; 85007; 85027

== ENCOUNTER 2025-01-06 13:35 | Outpatient (REF) | payer MEDICARE, OTHER, SELFPAY ==
[2025-01-06 18:08] LABS: Urine Cytology See Pathology rpt
== END 2025-01-06 13:36 | disposition home or self-care (01) ==
LOC: HO.LAB 13:35
PROVIDERS: PCP Internal Medicine; Visit Provider Urology
DX: Z43.6 Encounter for attention to other artificial openings of urinary tract (principal); C67.9 Malignant neoplasm of bladder, unspecified; N18.32 Chronic kidney disease, stage 3b; N39.0 Urinary tract infection, site not specified; N13.30 Unspecified hydronephrosis; Z13.9 Encounter for screening, unspecified; Z79.60 Long term (current) use of unspecified immunomodulators and immunosuppressants
CPT/HCPCS: 81003; 87086; 87088; 87186; 88112; 99212

== ENCOUNTER 2025-01-06 13:35 | Outpatient (AMB) | payer MEDICARE, OTHER, SELFPAY ==
--- NOTE | 2025-01-06 13:40 | A.OFFVIS_ITS ---
Intake Visit Reasons: follow up Intake Note: Patient present to office today for a follow up Urology Medication:NONE Antibiotic Allergy:NONE Blood Thinner:NONE Diamond Setter Apprentice Required: No Allergies No Known Allergies [No Known Allergies*] Allergy (Verified 01/06/25 13:41) Medication List - Last Reconciled 01/06/25 by Sangita Hopkins MD albuterol sulfate 90 mcg/actuation 2 puffs inhalation Q6H PRN amlodipine 10 mg (2 x 5 mg) PO DAILY atorvastatin 20 mg PO BEDTIME 90 days codeine-guaifenesin 10-100 mg/5 mL (Guaifenesin AC) 5 - 10 mL PO BEDTIME PRN levothyroxine 100 mcg PO DAILY@1300 needle (disp) 18 G (BD Regular Bevel Dragoon) As directed to draw hydrocortisone in case of emergency omeprazole 20 mg PO DAILY ondansetron 8 mg PO Q8H PRN prednisone 100 mg (5 x 20 mg) PO DAILY sulfamethoxazole-trimethoprim 800-160 mg (Bactrim DS) 1 tab PO BID syringe with needle (BD Luer-Shiv Syringe) As directed to be used to inject hydrocortisone in case of emergency HPI Comments Details: 01/06/25--Brady has been diagnosed with invasive bladder cancer. s/p TURBT 12/12/23. He presents with a chronic cough. The patient states he has undergone extensive diagnostic testing, all yielding negative results, including tests for RSV, influenza, and COVID-19, and a chest x-ray. He has experienced facial bruising due to a fall on the stairs but did not lose consciousness or have additional imaging. Regarding his invasive bladder cancer, The ongoing management includes chemotherapy and a right nephrostomy tube, with no noted issues at this visit. Nephrostomy tube site is c/d/i. Dressing changed. Urinalysis today 2+ leukocytes 2+ blood. I will empirically start Bactrim DS twice a day pending urine culture. I will send urine for cytology. I have discussed fu for office cysto. 10/31/24--Brady was in the ED because his nephrostomy tube came out. I have evaluated the nephrostomy tube site there is leaking around the tubing which was reconnected. The patient continues to follow-up with Heme-Onc. 09/23/24--6 month FU. Brady has been diagnosed with invasive bladder cancer. s/p TURBT 12/12/23. PET-CT performed at [facility] showed multiple subcutaneous and intramuscular nodules demonstrating [id number] FDG uptake. Predominantly in the left axilla, left gluteal region. Moderate FDG uptake corresponding to right posterolateral bladder mass. No FDG avid abdominopelvic lymphadenopathy. Patient underwent ultrasound-guided biopsy of left gluteal mass which revealed metastatic poorly differentiated carcinoma. Immunostains showed positivity for CK7, focal positive tiara 3 compatible with metastatic urothelial carcinoma. Also left axillarymass, excision: Poorly differentiated carcinoma, well-circumscribed subcutaneous nodule, completely excised; compatible with metastatic urothelial carcinoma. He is followed by Onco logy. Last Neph tube change 05/23/24. He is seen by the urology nurse q 2 wks to check Nephrostomy site and change dressing. Will sched Neph tube change in 8-10 weeks. 03/28/24--Brady has been diagnosed with invasive bladder cancer. s/p TURBT 12/12/23. Clinical stage T2/[address] chest and bone scan did not show evidence of metastatic disease. He had placement of right nephrostomy tube in the right kidney on 02/12/2024. He started on neoadjuvant chemotherapy 02/27/2024. He has had consultation with Dr. Lawrence at [facility] who has discussed radical cystoprostatectomy with possible continent diversion. He states he is scheduled to have a colonoscopy prior to procedure and tentative date for cystectomy in July. He feels he is tolerating the chemotheray well. I have evaluated the right nephrotomy tube site, no signes of infection, dressing changed. He has scheduled visits with my nurse to check nephrostomy. 12/27/2023--Brady is a 63-year-old male who is status post cystoscopy trans urethral resection of bladder tumor on 12/12/2023. Preoperative CT scan of the abdomen and pelvis was significant for right hydronephrosis. At the time of the cystoscopy procedure I was unable to vis ualize the right ureteral orifice. I reviewed pathology results with the patient. Bladder tumor, transurethral resection: -Invasive urothelial carcinoma, high- grade -Tumor invades muscularis propria. I have discussed further treatment recommendations for neoadjuvant chemo with Oncology and evaluation for [facility]--Brady is a very pleasant 63-year-old male patient of Dr. Rizzo. He has a past medical history hyperlipidemia, obesity, and carpal tunnel syndrome. He presents to the office today for a cystoscopy. Of note, patient was seen approximately 2 weeks ago as a new patient for gross hematuria that initially started 10/14. He had underwent imaging with PCP prior to his new patient appointment here at which time retroperitoneal ultrasound noted right-sided bladder mass with moderate right-sided hydronephrosis. This is likely responsible for the right sided hydronephrosis. Mildly enlarged prostate. Urine cytology from last office visit 11/14--Suspicious for high-grade urothelial carcinoma. He does report a 25-30 year smoking history of approximately 1 pack per day however quit approximately 13 years ago. He does report noting episodes of dysuria with gross hematuria he otherwise denies urinary urgency, urinary frequency, incontinence, nocturia, hematuria, foul smelling urine, changes to urinary stream, flank pain, fever, and or chills. He is happy with his current voiding parameters. He denies any known chemical exposure. In review of patient's chart it appears PSAs are as follows: 11/13--0.5, 10/14--0.8. In office cystoscopy performed: Large right bladder mass noted unable to differentiate UO. Discussed further treatment options with cystoscopy TURBT. Discussed risks and benefits at length. Discussed potential for right-sided ureteral stent placement given position of bladder tumor and retroperitoneal ultrasound noting right-sided hydronephrosis. All questions were answered. Discussed obtaining CT urogram for further assessment evaluation as well as labs [facility] Medical History History of immune checkpoint inhibitor therapy Hypophysitis Adrenal insufficiency Hypothyroidism Port-A-Cath in place (02/16/24) History of blood transfusion Bladder cancer Obesity (BMI 30-39.9) Pure hypercholesterolemia Hyperlipemia Carpal tunnel syndrome Surgical History Mass of left axilla (05/31/24) Hx of colonoscopy Hx of cystoscopy History of surgery History of hand surgery History of ankle surgery History of cholecystectomy Family History Father Multiple sclerosis, primary progressive Mother No problems noted. 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 Current occupational exposures/hazards: No Cognitive needs: No Hearing needs: No Vision needs: Yes (Glasses) Review of Systems Const All systems reviewed & are unremarkable except as noted in HPI and below Reports no additional complaints Eyes Reports no additional complaints ENT Reports no additional complaints Card Reports no additional complaints Resp Reports no additional complaints GI Reports no additional complaints Reports as per HPI Musc Reports no additional complaints Skin/Breast Reports system reviewed and no additional complaints, except as documented Neuro Reports no additional complaints Psych Reports no additional complaints Endo Reports no additional complaints Phil/Lymph Reports no additional complaints Aller/Immun Reports no additional complaints Assessment & Plan Assessment & Plan (1) Bladder cancer: Code(s): C67.9 - Malignant neoplasm of bladder, unspecified Category: Medical (2) Invasive carcinoma of urinary bladder: Code(s): C67.9 - Malignant neoplasm of bladder, unspecified Category: Medical (3) CKD stage 3b, GFR 30-44 ml/min: Code(s): N18.32 - Chronic kidney disease, stage 3b Category: Medical (4) Malignant neoplasm metastatic from bladder: Code(s): C67.9 - Malignant neoplasm of bladder, unspecified Category: Surgical (5) Hydronephrosis: Code(s): N13.30 - Unspecified hydronephrosis Category: Medical Plan He Follows with [facility] Right Neph tube dressing changes prn Urine c/s, bactrim ds one bid for 7 days pending c/s results urine for cytology Orders: Orders AMB Urinalysis Automated Today Z13.9 - Encounter for screening, unspecified Medications: New sulfamethoxazole-trimethoprim 800-160 mg (Bactrim DS) 1 tab PO BID 14 tabs 0RF Discontinued azithromycin (Zithromax) Take 2 tablets on day 1 and 1 tablet for 4 days Discontinued Reason: Patient Completed Course 250 mg PO DAILY 6 tabs 0RF Patient Instructions: The patient had an opportunity to ask questions regarding treatment plan. The patient expressed understanding and agreement with the above treatment plan. The patient is aware they should contact our office by phone for worsening of their current condition or the appearance of new symptoms. Compliance is encouraged with any medications and followup testing that is ordered. It is a privilege to be allowed the opportunity to participate in the urologic care of your patient. If you have any questions or concerns regarding treatment for the above conditions please do not hesitate to contact me. The office telephone contact is [phone]. This note is constructed in part using voice recognition software. While every effort has been made to ensure accuracy returned materials inspector errors may have been included. Yours sincerely, Sangita Hopkins MD Scribe Plan - Not visible on output: Patient was informed and verbally consented to the use of an ambient scribe for clinic note documentation during this visit. Coding Level of Care Code Est Pt Level 4 (31655) Diagnoses Bladder cancer C67.9 Invasive carcinoma of urinary bladder C67.9 CKD stage 3b, GFR 30-44 ml/min N18.32 Malignant neoplasm metastatic from bladder C67.9 Hydronephrosis N13.30
--- OUTSIDE RECORDS SUMMARY | 2025-01-06 15:54 | XMS_ITS | Clinical Summary ---
Author Organization [facility] Address [address] [place] [address] Care Team Providers Care Lead Material Handler Name Role Phone Morris Rizzo Primary Care Provider [phone] Allergies No known active allergies Medications atorvastatin [...] Cessation:Counseling Given: Not Answered Comments:On and off 1175-9726 smoking, at most 1 PPD Alcohol Use [...] 1960 Hepatitis C Screening 1960 Sigmoidoscopy 1960 Medicare AWV 1961 Pneumococcal Vaccine: 50+ Ye ars (1 of [...] Completed 08/03/2023 Procedures * Due to [place] [employer] law, this organization might not be sharing negative HIV tests. Procedure Name Priority Date/Time Associated Diagnosis Comments AMB EXTERNAL CT CHEST, OUTSI DE RESULT 01/23/2024 from Last 3 Months or Most Recently Relevant to Health Maintenance Results * Due to [place] [employer] law, this organization might not be sharing negative HIV tests. * AMB EXTERNAL CT CHEST, OUTSIDE RESULT (01/23/2024) Anatomical Region Laterality Modality Other 01/23/2024 us Onbase [facility] AMB EXTERNAL RESULT PROCEDURE S Final Result from Last 3 Months or Most Recently Relevant to Health Maintenance Insurance MEDICARE [employer] Advance Directives Documents on File Type Date Recorded Patient Refractory Tile Helper Expl anation Health Care Proxy 05/27/2024 7:26 AM Care Teams Lead Material Handler Relationship Specialty Start Date End Date Morris Rizzo [address] [place] [address] [place] [address] PCP - General Internal Medicine 01/09/24
--- OUTSIDE RECORDS SUMMARY | 2025-01-06 15:54 | XMS_ITS | Referral Summary ---
Author Organization [facility] Address [address] [place] [address] Care Team Providers Care Extension Supervisor Name Role Phone Morris Rizzo Primary Care Provider [phone] Allergies No known active allergies Medications atorvastatin [...] Cessation:Counseling Given: Not Answered Comments:On and off 5550-3654 smoking, at most 1 PPD Alcohol Use [...] Not on file Procedures * Due to [place] [employer] law, this organization might not be sharing negative HIV tests. Procedure Name Priority Date/Time Associated Diagnosis Comments AMB EXTERNAL CT CHEST, OUTSI DE RESULT 01/23/2024 from Last 3 Months or Most Recently Relevant to Health Maintenance Results * Due to [place] [employer] law, this organization might not be sharing negative HIV tests. * AMB EXTERNAL CT CHEST, OUTSIDE RESULT (01/23/2024) Anatomical Region Laterality Modality Other 01/23/2024 us Onbase [facility] AMB EXTERNAL RESULT PROCEDURE S Final Result from Last 3 Months or Most Recently Relevant to Health Maintenance Insurance MEDICARE FOR LIFE Advance Directives Documents on File Type Date Recorded Patient Watermaster Expl [facility] Care Proxy 05/27/2024 7:26 AM Care Teams Extension Supervisor Relationship Specialty Start Date End Date Morris Rizzo [address] [place] [address] [place] [address] PCP - General Internal Medicine 01/09/24
--- OUTSIDE RECORDS SUMMARY | 2025-01-06 15:54 | XMS_ITS ---
Author Organization [facility] Address [address] [place] [address] Care Team Providers Care Radio Broadcaster Name Role Phone So MCALLISTER, Primary Care Provider Unavaila Jose Doty Unavailable [phone] Eamon MCALLISTER, Zamzam Lindsay Unavailable REASON FOR VISIT CANCEL PROCEDURE Encounters Encounter Location Date Provider Diagnosis [facility] [address] [place] [address] 05/30/2024 Jose Arevalo Plan Of Treatment No Information Progress Notes * BEREKET JOSEDOB:1960 (63 yo M)Acc No.[id number]:05/30/2024 Patient:?JOSE CUBA :1960???Age:63 Y???Sex:Male Address:[address] [place] [address] [place], [address] * true * Date:? Generated for Gig[employer] zaida/Todd/eTransmitting on:?01/06/2025 03:53 PM EDT
--- OUTSIDE RECORDS SUMMARY | 2025-01-06 15:54 | XMS_ITS ---
Author Organization [facility] Address [address] [place] [address] Care Team Providers Care Chief Operator Lock Tender Name Role Phone So MCALLISTER, Primary Care Provider Unavaila Jose Doty Unavailable [phone] Eamon MCALLISTER, Zamzam Lindsay Unavailable REASON FOR VISIT colonoscopy Encounters Encounter Location Date Provider Diagnosis [facility] [address] [place] [address] 05/27/2024 Jose Arevalo Plan Of Treatment No Information Progress Notes * SEANJOSE ESTESDOB:1960 (63 yo M)Acc No.[id number]:05/27/2024 Patient:?JOSE CUBA :1960???Age:63 Y???Sex:Male Address:[address] [place] [address] [place], [address] * true * Date:? Generated for Gigii zaida/Todd/eTransmitting on:?01/06/2025 03:53 PM EDT
--- OUTSIDE RECORDS SUMMARY | 2025-01-06 15:54 | XMS_ITS ---
Author Organization [facility] Address [address] [place] [address] Care Team Providers Care Financial Reporting Accountant Name Role Phone Morris Rizzo Primary Care [...] TotalDLP 1,042 mGy 1,042 mGy 0 mGy [id number] 13.5 mSv 13.5 mSv 0 mSv CTDIvol Max 11.8 mGy 11.8 mGy 0 mGy CTDIvol Min 7.3 mGy 7.3 mGy 0 mGy
--- OUTSIDE RECORDS SUMMARY | 2025-01-06 15:54 | XMS_ITS | Clinical Summary ---
Author Organization [facility] Address [address] [place] [address] Phone Care Team Providers Care Meter Repairer Helper Name Role Phone Morris Rizzo MD Primary Care Provider [phone] Social History Tobacco Use Types Packs/Day Years [...] age to complete this topic Care Teams Meter Repairer Helper Relationship Specialty Start Date End Date Morris Rizzo MD [address] [place] [address] [address] [place] [address] PCP - General Internal Medicine 05/27/22
--- OUTSIDE RECORDS SUMMARY | 2025-01-06 15:54 | XMS_ITS | Patient Health Record ---
Author Organization [facility] Address [address] [place] [address] Care Team Providers Care Plastic Shaper Name Role Phone So MCALLISTER, Primary Care Provider Unavaila Jose Doty Unavailable [phone] Eamon MCALLISTER, Zamzam Unavailable Unavailable Reason For [...] Status Risk Notes Problem Colon cancer screening (303971888) Colon cancer screening (Z12.11) Active confirmed Problem 14840544 Epigastric abdominal pain (R10.13) Active confirmed Problem 193868036 Encounter for screening for malignant neoplasm of colon (Z12.11) Active confirmed Problem [id number] Preprocedural examination (Z01.818) Active confirmed Encounters Encounter Location Date Provider Diagnosis [facility] [address] [place] [address] 04/23/2024 Jose Arevalo Colon cancer screening Z12.11 [facility] [address] [place] [address] 05/27/2024 Jose Arevalo [facility] [address] [place] [address] 05/30/2024 Jose Arevalo Assessments Encounter Date Diagnosis [...] Date MEDICARE OF [place] [address] [place] [address] [id number] JOSE CUBA Self - patient is the insured [email or web address] [address] [place] [address] [id number] JOSE CUBA Self - patient is the insured Medical (General) History Medical History History ICD Code Denies [place],DM,CVA,Lung disease,renal dise ase Hyperlipidemia Screening colonoscopy in Mar with Dr. Johansen revealed only hyperplastic polyps. EGD in 08/2017-small HH, normal duodenal and gastric biopsies Surgical History Surgery Date(Month/Year) Lap cholecystectomy--acalculous cholecys titis-Dr. Knutson 05/2017 Finger- infection drained 1969
--- OUTSIDE RECORDS SUMMARY | 2025-01-06 15:54 | XMS_ITS | Encounter Summary ---
Author Organization [facility] Address [address] [place] [address] Care Team Providers Care Second Floor Operator Name Role Phone Morris Rizzo Primary Care Provider [phone] Encounter Details Date Type Department Care Team (Late st Contact Info) Description 04/15/2024 Orders Only [facility] ACC Building Mammography [address] [facility], 5th [place] [address] Shola Arroyo MD [address] [place] [address] Social History Tobacco Use Types Packs/Day Years [...] on filedocumented in this encounter Care Teams Second Floor Operator Relationship Specialty Start Date End Date Morris Rizzo [address] [place] [address] [place] [address] PCP - General Internal Medicine 01/09/24 documented as of this encounter
--- OUTSIDE RECORDS SUMMARY | 2025-01-06 15:54 | XMS_ITS ---
Author Organization [facility] Address [address] [place] [address] Care Team Providers Care Poacher Wringer Operator Name Role Phone So MCALLISTER, Primary Care Provider Unavaila Jose Doty Unavailable [phone] Eamon MCALLISTER, Zamzam Lindsay Unavailable REASON FOR VISIT colon screening Encounters Encounter Location Date Provider Diagnosis [facility] [place] [facility] [address] [facility] [place] [place] [id number] 06/03/2024 Jose Arevalo Plan Of Treatment No Information Progress Notes * JOSE CUBADOB:1960 (64 yo M)Acc No.[id number]:06/03/2024 COLON WITH MAC Patient:?JOSE CUBA Provider:?Jose Arevalo MD :1960???Age:63 Y???Sex:Male Curt e:06/03/2024 Address:[address] [place] [address] [facility] Pcp:Morris Rizzo MD Subjective: * Chief Complaints: [...] Arevalo MD Date:? 024 Generated for Sade cerda/Todd/eTransmitting on:?01/06/2025 03:54 PM EDT
== END 2025-01-06 14:22 | disposition home or self-care (01) ==
LOC: HO.HUSH 13:36
PROVIDERS: PCP Internal Medicine; Visit Provider Urology
DX: C67.9 Malignant neoplasm of bladder, unspecified (principal); N18.32 Chronic kidney disease, stage 3b; N13.30 Unspecified hydronephrosis; Z13.9 Encounter for screening, unspecified
CPT/HCPCS: 99214

== ENCOUNTER 2025-01-10 13:09 | Outpatient (AMB) | payer MEDICARE, OTHER, SELFPAY ==
--- NOTE | 2025-01-10 13:18 | MHC.OFFWIV ---
Intake Intake Visit Reasons: EP ache/pain sob Patient Tobacco Use Status: Former Tobacco user Allergies No Known Allergies [No Known Allergies*] Allergy (Verified 01/06/25 13:41) PFS Medical History History of immune checkpoint inhibitor therapy Hypophysitis Adrenal insufficiency Hypothyroidism Port-A-Cath in place (02/16/24) History of blood transfusion Bladder cancer Obesity (BMI 30-39.9) Pure hypercholesterolemia Hyperlipemia Carpal tunnel syndrome Surgical History Mass of left axilla (05/31/24) Hx of colonoscopy Hx of cystoscopy History of surgery History of hand surgery History of ankle surgery History of cholecystectomy Family History Father Multiple sclerosis, primary progressive Mother No problems noted. 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
--- NOTE | 2025-01-10 13:21 | AM.OFFWIN_ITS ---
Intake Vital Signs 01/10/25 13:22 01/10/25 13:23 Height 6 ft 2 in BP 112/70 Blood Pressure Location Lt brachial Position Sitting Pulse 102 H 112 H Pulse Source Pulse Oximeter Pulse Oximeter Temp 97.9 F Temp Source Oral Pulse Oximetry (%) 99 98 Oxygen Delivery Method Room Air Room Air Intake Visit Reasons: EP ache/pain sob Patient Tobacco Use Status: Former Tobacco user Allergies No Known Allergies [No Known Allergies*] Allergy (Verified 01/06/25 13:41) HPI HPI Comments History of Present Illness Details History of Present Illness - The patient is a 64-year-old male with a pmedhx of bladder ca on chemotherapy presenting with shortness of breath, recent fall-related head injury, and lower extremity weakness. - He reports onset of shortness of breat h currently being evaluated with scheduled CT to rule out causes such as pulmonary embolism. he has his CT scan in 1.5 hours at [facility]. This was ordered by his Oncology team at [facility]. - Experienced fall two weeks prior, lead ing to a head injury without loss of consciousness. He denies any chest pain, dizziness or lightheadedness prior to his fall and believes it was a mechanical fall. He has some bumps and bruises on his face but besides that, he states he didn't sustain any injuries. Since the incident, he reports occasional difficulty with balance and standing, concurred with intermittent back pain. He is not on a blood thinner. - Despite tendencies of lower extremity tenderness, he does not report continual numbness or tingling, indicating stability in ambulation once vertical. He states his greatest difficulty is getting to a standing position. - Undergoing thrice-monthly immunotherap y with enfortumab vedotin since 10/2024 for bladder cancer intertwined with a tapering of prednisone, currently on 20mg per day. - Chronic cough has persisted over years . - Issues related to kidney function have arisen but are under regular medical observation. Physical Exam General: Cooperative, healthy appearing, comfortable, no acute distress and well developed Orientation: Patient oriented x3 Limitations: No limitations Head: several small scabs and areas of small ecchymosis on the face from a fall two weeks ago Ears: Hearing grossly normal bilaterally Nose: Normal External nose present Face and sinus: Normal facial exam Eyes: Appearance normal, both eyes and all related structures Neck: Normal visual inspection and Yes full ROM Respiratory: Normal respiratory effort and able to speak in complete sentences. Clear to auscultation bilaterally Cardiovascular: tachycardic rate and rhythm. Normal S1 and S2. Skin: No rashes or lesions noted Neuro: Patient oriented x3 Extremities: Normal to inspection, negative Homans bilaterally, no edema in bilateral lower extremities [facility] Medical History History of immune checkpoint inhibitor therapy Hypophysitis Adrenal insufficiency Hypothyroidism Port-A-Cath in place (02/16/24) History of blood transfusion Bladder cancer Obesity (BMI 30-39.9) Pure hypercholesterolemia Hyperlipemia Carpal tunnel syndrome Surgical History Mass of left axilla (05/31/24) Hx of colonoscopy Hx of cystoscopy History of surgery History of hand surgery History of ankle surgery History of cholecystectomy Family History Father Multiple sclerosis, primary progressive Mother No problems noted. 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 Current occupational exposures/hazards: No Cognitive needs: No Hearing needs: No Vision needs: Yes (Glasses) Review of Systems Const All systems reviewed & are unremarkable except as noted in HPI and below Physical Exam Vital Signs: Last Vital Signs Pulse 102 H 01/10/25 13:22 Pulse Ox 99 01/10/25 13:22 Oxygen Delivery Method Room Air 01/10/25 13:22 Oxygen Flow Rate 97.9 01/10/25 13:22 Assessment & Plan Assessment & Plan (1) Dyspnea on exertion: Code(s): R06.09 - Other forms of dyspnea Plan: VSS however upon ambulation, pt does get tachycardic to 155BPM, from a resting HR of 102BPM and increases his respiratory rate dramatically and oxygenation does drop to 95% from 98%. He is well appearing otherwise and not sob at rest, feels safe to drive himself. The patient will proceed with the CT scan to assess for a pulmonary embolism as a potential contributor to shortness of breath as he is at high risk due to his cancer diagnosis. Neurologically, he remains stable post-fall, negating concern for immediate intervention. For weakness in the lower extremities, physical therapy may be introduced to aid in stabilization and strength building, he should discuss this with his Oncology care team as well as possibly getting an assistive device to help him go from sitting to standing. Patient was informed and verbally consented to the use of an ambient scribe for clinic note documentation during this visit. Coding Level of Care Code Est Pt Level 3 (43553) Diagnoses Dyspnea on exertion R06.09
[2025-01-10 13:22] VITALS: PULSE 102; O2SAT 99
[2025-01-10 13:23] VITALS: BP 112/70; PULSE 112; TEMP 36.6; O2SAT 98
--- OUTSIDE RECORDS SUMMARY | 2025-01-10 15:32 | XMS_ITS ---
Author Organization [facility] Address [address] [place] [address] Care Team Providers Care Home Inspector Name Role Phone Morris Rizzo Primary Care Provider [phone] Active Problems Problem Noted Date Diagnosed Date Hyperkalemia 05/30/2024 Malignant neoplasm of overlapping sites of bladd er 03/04/2024 Other hydronephrosis 03/04/2024 Current Treatment and Therapy Plans No current plan information found. Past Treatment and Therapy Plans No past plan information found. Lifetime Dose Tracking * Chemical Lifetime Dose Automatic Entry Manual Entr y TotalDLP 1,042 mGy 1,042 mGy 0 mGy [id number] 13.5 mSv 13.5 mSv 0 mSv CTDIvol Max 11.8 mGy 11.8 mGy 0 mGy CTDIvol Min 7.3 mGy 7.3 mGy 0 mGy
--- OUTSIDE RECORDS SUMMARY | 2025-01-10 15:32 | XMS_ITS ---
Author Organization [facility] Address [address] [place] [address] Care Team Providers Care Hand Slitter Name Role Phone So MCALLISTER, Primary Care Provider Unavaila Jose Doty Unavailable [phone] Eamon MCALLISTER, Zamzam Lindsay Unavailable REASON FOR VISIT colon screening Encounters Encounter Location Date Provider Diagnosis [facility] [address] [facility] [place] [id number] 06/03/2024 Jose Arevalo Plan Of Treatment No Information Progress Notes * JOSE CUBADOB:1960 (64 yo M)Acc No.[id number]:06/03/2024 COLON WITH MAC Patient:?JOSE CUBA Provider:?Jose Arevalo MD :1960???Age:63 Y???Sex:Male Curt e:06/03/2024 Address:[address] [place] [address] [facility] Pcp:Mroris Rizzo MD Subjective: * Chief Complaints: * [...] MD Date:? 024 Generated for Sade cerda/Todd/eTransmitting on:?01/10/2025 03:32 PM EDT
--- OUTSIDE RECORDS SUMMARY | 2025-01-10 15:32 | XMS_ITS | Referral Summary ---
Author Organization [facility] Address [address] [place] [address] Care Team Providers Care Stator Tester Name Role Phone Morris Rizzo Primary Care Provider [phone] Allergies No known active allergies Medications atorvastatin [...] Cessation:Counseling Given: Not Answered Comments:On and off [id number] smoking, at most 1 PPD Alcohol Use [...] on file Procedures * Due to [place] [employer] law, this organization might not be sharing negative HIV tests. Procedure Name Priority Date/Time Associated Diagnosis Comments AMB EXTERNAL CT CHEST, OUTSI DE RESULT 01/23/2024 from Last 3 Months or Most Recently Relevant to Health Maintenance Results * Due to [place] [employer] law, this organization might not be sharing negative HIV tests. * AMB EXTERNAL CT CHEST, OUTSIDE RESULT (01/23/2024) Anatomical Region Laterality Modality Other 01/23/2024 us Onbase [facility] AMB EXTERNAL RESULT PROCEDURE S Final Result from Last 3 Months or Most Recently Relevant to Health Maintenance Insurance MEDICARE FOR LIFE Advance Directives Documents on File Type Date Recorded Patient [employer] Principal Expl [facility] Care Proxy 05/27/2024 7:26 AM Care Teams Stator Tester Relationship Specialty Start Date End Date Morris Rizzo [address] [place] [address] [place] [address] PCP - General Internal Medicine 01/09/24
--- OUTSIDE RECORDS SUMMARY | 2025-01-10 15:32 | XMS_ITS | Clinical Summary ---
Author Organization [facility] Address [address] [place] [address] Care Team Providers Care Demi Chef Name Role Phone Morris Rizzo Primary Care Provider [phone] Allergies No known active allergies Medications atorvastatin [...] Cessation:Counseling Given: Not Answered Comments:On and off 8633-4050 smoking, at most 1 PPD Alcohol Use [...] patients) Completed 08/03/2023 Procedures * Due to [place] [employer] law, this organization might not be sharing negative HIV tests. Procedure Name Priority Date/Time Associated Diagnosis Comments AMB EXTERNAL CT CHEST, OUTSI DE RESULT 01/23/2024 from Last 3 Months or Most Recently Relevant to Health Maintenance Results * Due to [place] [employer] law, this organization might not be sharing negative HIV tests. * AMB EXTERNAL CT CHEST, OUTSIDE RESULT (01/23/2024) Anatomical Region Laterality Modality Other 01/23/2024 us Onbase [facility] AMB EXTERNAL RESULT PROCEDURE S Final Result from Last 3 Months or Most Recently Relevant to Health Maintenance Insurance MEDICARE [email or web address] Advance Directives Documents on File Type Date Recorded Patient Timber Grader Expl anation Health Care Proxy 05/27/2024 7:26 AM Care Teams Demi Chef Relationship Specialty Start Date End Date Morris Rizzo [address] [place] [address] [place] [address] PCP - General Internal Medicine 01/09/24
--- OUTSIDE RECORDS SUMMARY | 2025-01-10 15:32 | XMS_ITS | Encounter Summary ---
Author Organization [facility] Address [address] [place] [address] Care Team Providers Care Pin Drafter Name Role Phone Morris Rizzo Primary Care Provider [phone] Encounter Details Date Type Department Care Team (Late st Contact Info) Description 04/15/2024 Orders Only [facility] ACC Building Mammography [address] [facility], 5th [place] [address] Shola Arroyo MD [address] [place] [address] Social History Tobacco Use Types Packs/Day Years [...] on filedocumented in this encounter Care Teams Pin Drafter Relationship Specialty Start Date End Date Morris Rizzo [address] [place] [address] [place] [address] PCP - General Internal Medicine 01/09/24 documented as of this encounter
--- OUTSIDE RECORDS SUMMARY | 2025-01-10 15:32 | XMS_ITS | Patient Health Record ---
Author Organization [facility] Address [address] [place] [address] Care Team Providers Care Plastics Technician Name Role Phone So MCALLISTER, Primary Care Provider Unavaila Jose Doty Unavailable [phone] Eamon MCALLISTER, Zamzam Unavailable Unavailable Reason For [...] Status Risk Notes Problem Colon cancer screening (881172712) Colon cancer screening (Z12.11) Active confirmed Problem [id number] Epigastric abdominal pain (R10.13) Active confirmed Problem [id number] Encounter for screening for malignant neoplasm of colon (Z12.11) Active confirmed Problem [id number] Preprocedural examination (Z01.818) Active confirmed Encounters Encounter Location Date Provider Diagnosis [facility] [address] [place] [address] 04/23/2024 Jose Arevalo Colon cancer screening Z12.11 [facility] [address] [place] [address] 05/27/2024 Jose Arevalo [facility] [address] [place] [address] 05/30/2024 Jose Arevalo Assessments Encounter Date Diagnosis [...] Date MEDICARE OF [place] [address] [place] [address] [id number] JOSE CUBA Self - patient is the insured [employer] [address] [place] [address] [id number] JOSE CUBA Self - patient is the insured Medical (General) History Medical History History ICD Code Denies [place],DM,CVA,Lung disease,renal dise ase Hyperlipidemia Screening colonoscopy in Mar with Dr. Johansen revealed only hyperplastic polyps. EGD in 08/2017-small HH, normal duodenal and gastric biopsies Surgical History Surgery Date(Month/Year) Lap cholecystectomy--acalculous cholecys titis-Dr. Knutson 05/2017 Finger- infection drained 1969
--- OUTSIDE RECORDS SUMMARY | 2025-01-10 15:32 | XMS_ITS ---
Author Organization [facility] Address [address] [place] [address] Care Team Providers Care Accounts Payable Analyst Name Role Phone So MCALLISTER, Primary Care Provider Unavaila Jose Doty Unavailable [phone] Eamon MCALLISTER, Zamzam Lindsay Unavailable REASON FOR VISIT colonoscopy Encounters Encounter Location Date Provider Diagnosis [facility] [address] [place] [phone] 05/27/2024 Jose Arevalo Plan Of Treatment No Information Progress Notes * SEANJOSE ESTESDOB:1960 (63 yo M)Acc No.[id number]:05/27/2024 Patient:?JOSE CUBA :1960???Age:63 Y???Sex:Male Address:[address] [place] [address] [place], [address] * true * Date:? Generated for Gigii zaida/Todd/eTransmitting on:?01/10/2025 03:32 PM EDT
--- OUTSIDE RECORDS SUMMARY | 2025-01-10 15:32 | XMS_ITS ---
Author Organization [facility] Address [address] [place] [address] Care Team Providers Care Student Recruiter Name Role Phone So MCALLISTER, Primary Care Provider Unavaila Jose Doty Unavailable [phone] Eamon MCALLISTER, Zamzam Lindsay Unavailable REASON FOR VISIT CANCEL PROCEDURE Encounters Encounter Location Date Provider Diagnosis [facility] [address] [place] [phone] 05/30/2024 Jose Arevalo Plan Of Treatment No Information Progress Notes * BEREKET JOSEDOB:1960 (63 yo M)Acc No.[id number]:05/30/2024 Patient:?JOSE CUBA :1960???Age:63 Y???Sex:Male Address:[address] [place] [address] [place], [address] * true * Date:? Generated for Gigii zaida/Todd/eTransmitting on:?01/10/2025 03:32 PM EDT
--- OUTSIDE RECORDS SUMMARY | 2025-01-10 15:32 | XMS_ITS | Clinical Summary ---
Author Organization [facility] Address [address] [place] [address] Phone Care Team Providers Care Buggy Runner Name Role Phone Morris Rizzo MD Primary Care Provider [phone] Social History Tobacco Use Types Packs/Day Years [...] age to complete this topic Care Teams Buggy Runner Relationship Specialty Start Date End Date Morris Rizzo MD [address] [place] [address] [address] [place] [address] PCP - General Internal Medicine 05/27/22
== END 2025-01-10 14:06 | disposition home or self-care (01) ==
PROVIDERS: PCP Internal Medicine; Visit Provider Physician Assistant
DX: R06.09 Other forms of dyspnea (principal)

== ENCOUNTER 2025-01-10 14:03 | Outpatient (REF) | payer MEDICARE, OTHER, SELFPAY ==
--- NOTE | ~2025-01-10 | CT_ITS ---
CLINICAL HISTORY: chronic cough, bladder ca - on immunotherapy CT chest without contrast Comparison: CT/NV/SR - CT CHEST WO IV CON - 01/23/24 14:38 EDT Findings: The heart is normal size. The ascending aorta is dilated, measuring 4.4 cm in diameter, without change. The aorta is elongated. The visualized thyroid and mediastinum are unremarkable. There is patchy ground-glass opacity within the right lung with involvement of the right upper, middle and lower lobes. No consolidation or pleural effusion. Status post cholecystectomy. No acute fracture. No suspicious bone lesion. There is a right-sided Port-A-Cath. IMPRESSION: 1. Patchy right lung infiltrate suspicious for pneumonia. 2. 4.4 cm aneurysm of the ascending aorta. This document has been electronically signed by: Sheri Noe MD on 01/10/2025 16:51:31
[2025-01-10 14:16] LABS: Hematocrit 34.9 % (42.0-52.0); Hemoglobin 12.5 g/dl (14.0-18.0); Mean Corpuscular HGB Conc 35.8 g/dl (31.0-36.0); Mean Corpuscular Hemoglobin 32.7 pg (27.0-33.0); Mean Corpuscular Volume 91.4 fL (80.0-98.0); Platelet Count 121 X10*3/uL (160-400); Red Blood Count 3.82 X10*6/uL (4.60-5.80); White Blood Count 9.5 X10*3/uL (4.8-10.8)
[2025-01-10 14:41] LABS: Alanine Aminotransferase 55 U/L (0-40); Albumin Level 3.5 g/dL (3.5-5.0); Alkaline Phosphatase 94 U/L (39-117); Anion Gap 17 (12-20); Aspartate Amino Transferase 58 U/L (5-37); Bilirubin Total 0.9 mg/dL (0.0-1.0); Blood Urea Nitrogen 84 mg/dL (9-16); Calcium 9.2 mg/dL (8.4-10.2); Carbon Dioxide 17 mmol/L (22-29); Chloride 106 mmol/L (96-108); Estimated Glomerular Filt Rate 20; Glucose Random 104 mg/dL (60-115); Potassium 5.2 mmol/L (3.3-5.1); Sodium 135 mmol/L (135-145); Total Protein 6.6 g/dL (6.5-8.0)
[2025-01-10 14:55] LABS: Thyroid Stimulating Hormone 0.65 uIU/mL (0.32-4.0)
[2025-01-10 15:24] LABS: Band Neutrophils Percent 6 % (3-5); Lymphocytes Absolute Manual 0.3 X10*3/uL (1.2-4.9); Lymphocytes Percent Manual 3 % (20-40); Monocytes Absolute Manual 0.3 X10*3/uL (0.1-1.2); Monocytes Percent Manual 3 % (2-11); Myelocytes Absolute 0.1 X10*/uL; Myelocytes Percent 1 %; Neutrophils Absolute Manual 8.8 X10*3/uL (2.0-8.3); Ovalocytes 1+ (5-14) /OIF; Polychromasia 1+ (0-2) /OIF; RBC Morphology NOTED
[2025-01-10 15:25] LABS: Tear Drop Cells 1+ (0-2) /OIF
[2025-01-10 15:26] LABS: Schistocytes 1+ (0-2) /OIF
[2025-01-10 15:28] LABS: Platelet Estimate NORMAL (NORMAL); Platelet Morphology Comment NORMAL
[2025-01-10 15:32] LABS: Neutrophils Percent Manual 87 % (45-73)
== END 2025-01-10 14:04 | disposition home or self-care (01) ==
LOC: HO.CT 14:03
PROVIDERS: Internal Medicine; PCP Internal Medicine; Visit Provider Nurse Practitioner Family
DX: Z13.89 Encounter for screening for other disorder (principal)
CPT/HCPCS: 36415; 71250; 80053; 84443; 85007; 85027

== ENCOUNTER → 2025-01-10 14:19 | Outpatient (BNV) | payer MEDICARE, OTHER, SELFPAY | PROVIDERS: PCP Internal Medicine; Visit Provider Radiology Diagnostic Radiology | DX: C67.8 Malignant neoplasm of overlapping sites of bladder (principal); Z46.82 Encounter for fitting and adjustment of non-vascular catheter; R05.3 Chronic cough | CPT/HCPCS: 71250 ==

== ENCOUNTER 2025-01-10 15:54 | Inpatient (IN) | payer MEDICARE, OTHER, SELFPAY ==
--- NOTE | ~2025-01-10 | CT_ITS ---
CLINICAL HISTORY: hx nephrostomy tube, worsening Cr, bladder CA CT abdomen and pelvis without contrast Comparison: Renal ultrasound from 10/18/2024 Findings: Pulmonary opacities concerning for pneumonitis/pneumonia measure up to 4 cm with ground-glass opacities in the imaged right lower lobe. Vascular calcifications are multifocal including imaged coronary arteries. The gallbladder is surgically absent. Liver, spleen, and adrenal glands are unremarkable for noncontrast study. Mild volume loss of the pancreas is noted. Mild pancreatitis is considered given mild fluid of the inferior margin of the uncinate process of the pancreas. No hydronephrosis of either kidney. Perinephric stranding is nonspecific. Right-sided percutaneous nephrostomy tube is in place. No obstructing stone of either kidney or either ureter. Phleboliths are noted in the pelvis. Nonenlarged lymphadenopathy by noncontrast CT. No small bowel obstruction. The appendix is within normal limits. Severe stool burden is present, including the cecum. The prostate gland measures 4.4 cm transverse. Mild wall thickening of the urinary bladder is nonspecific. Small fat containing bilateral inguinal hernias. Gas within the spinal canal is left-sided of the lumbosacral junction in the likely related to intervertebral disc sequestration. Additional dorsal gas is related to left lower facet arthropathy. Additional facet arthropathy is multifocal. Mild vertebral height losses appear old/chronic. IMPRESSION: 1. No hydronephrosis, with right-sided nephrostomy tube in place. 2. Mild wall thickening of the imaged urinary bladder is nonspecific. 3. Multifocal airspace disease concerning for pneumonitis/pneumonia, particularly in the imaged right lung base. Recommend attention on follow-up to ensure resolution. 4. Severe stool burden. No small bowel obstruction. This document has been electronically signed by: Osmar García MD on 01/10/2025 20:14:17
[2025-01-10 16:25] VITALS: BP 91/69; PULSE 104; RESP 16; TEMP 36.8; O2SAT 98; BMI 29.2
--- NOTE | 2025-01-10 16:25 | ED_ITS ---
HPI - General Adult General Chief complaint: Dyspnea Stated complaint: called pt to report to ED Time Seen by Provider: 01/10/25 17:20 Source: patient Mode of arrival: ambulatory Limitations: no limitations History of Present Illness ED Provider: Dr. Rubina Fernandez HPI narrative: Patient comes to the emergency room complaining of 8 months of URI symptoms including dyspnea. Patient states that he has had extensive workups in nothing shows positive. Patient states that he has been receiving immunotherapy for bladder cancer. Patient states that he had blood work done earlier today and he was told that his renal function is elevated more than usual. Patient denies abdominal pain and flank pain. Patient states that he does not have any hematuria or dysuria. Related Data Home Medications ?Medication ?Instructions ?Recorded ?Confirmed levothyroxine 100 mcg tablet 100 mcg PO DAILY@1300 10/18/24 01/06/25 Previous Rx's ?Medication ?Instructions ?Recorded ondansetron 8 mg disintegrating 8 mg PO Q8H PRN Nausea And 07/22/24 tablet Vomiting #60 tabs syringe with needle 3 mL 23 gauge #2 ea 10/03/24 x 1 1/2 (BD Luer-Shiv Syringe) needle (disp) 18 G 18 gauge x 1 #50 ea 10/21/24 (BD Regular Bevel [place]) atorvastatin 20 mg tablet 20 mg PO BEDTIME 90 days #90 tabs 10/29/24 amlodipine 5 mg tablet 10 mg (2 x 5 mg) PO DAILY 12/10/24 albuterol sulfate 90 mcg/actuation 2 puff inhalation Q6H PRN Cough 12/23/24 aerosol inhaler #20 grams prednisone 20 mg tablet 100 mg (5 x 20 mg) PO DAILY #200 12/23/24 tabs codeine 10 mg-guaifenesin 100 mg/5 5 - 10 ml PO BEDTIME PRN cough 01/06/25 mL oral liquid (Guaifenesin AC) #237 mL sulfamethoxazole 800 1 tab PO BID #14 tabs 01/06/25 mg-trimethoprim 160 mg tablet (Bactrim DS) omeprazole 20 mg capsule,delayed 20 mg PO DAILY #90 caps 01/07/25 release Allergies Allergy/AdvReac Type Severity Reaction Status Date / Time No Known Allergies Allergy Verified 01/10/25 16:32 [No Known Allergies*] Review of Systems 2 Review of Systems: Constitutional : No Weight loss, No Fever, No Chills, No Night Sweats, No Fatigue, No Malaise ENT/Mouth : No Hearing loss, No Ear Pain, No Nasal Congestion, No Sinus Pain, No Hoarseness, No sore throat, No Rhinorrhea, No Swallowing Difficulty Eyes: No Eye Pain, No Swelling, No Redness, No Foreign Body, No Discharge, No Vision Changes Cardiovascular : No Chest Pain, denies orthopnea palpitations or edema Respiratory : Complaining of cough, chronic dyspnea for 8 months. Gastrointestinal : No Nausea, No Vomiting, No Diarrhea, No Constipation, No abdominal Pain, No Hematochezia, No Melena Genitourinary : no irregular bleeding, No Dysuria, No Urinary Frequency, No Hematuria, No Urinary Incontinence, No Urgency, No Flank Pain, No Urinary Flow Changes, No Hesitancy Musculoskeletal : No joint pain, No Myalgias, No Joint Swelling Skin : No Skin Lesions, No rash Neuro : No Weakness, No Numbness, No Paresthesias, No Loss of Consciousness, No Dizziness, No Headache Psych : No Anxiety/Panic, No Depression, No SI/HI/AH/VH, No Social Issues, Heme/Lymph: No Bruising, No Bleeding,No Lymphadenopathy Endocrine : No Polyuria, No Polydipsia, No Temperature Intolerance PMFSH Past Medical History Medical History History of immune checkpoint inhibitor therapy Hypophysitis Adrenal insufficiency Hypothyroidism Port-A-Cath in place (02/16/24) History of blood transfusion Bladder cancer Obesity (BMI 30-39.9) Pure hypercholesterolemia Hyperlipemia Carpal tunnel syndrome Surgical History Mass of left axilla (05/31/24) Hx of colonoscopy Hx of cystoscopy History of surgery History of hand surgery History of ankle surgery History of cholecystectomy Family History Family History Father Multiple sclerosis, primary progressive Mother No problems noted. Sister In good health Son In good health Daughter In good health Social History Social History Household Members: None Housing: House Are you a primary direct care specialist to a significant other at home: No Do you presently have visiting nurse or other home services: No Alcohol intake: current Alcohol intake frequency: holidays/special occasions only Patient Tobacco Use Status: Former Tobacco user Tobacco use type: Cigarette Smoked in Last 30 Days: No e-Cigarette/Vaping Use: Never Used Second Hand Smoke Exposure: Yes Use of substances other than those prescribed or required for medical reasons: No Advance Directives: Yes Advance Directives on File: Yes Advance Directives Date on File: 03/19/24 Do you have a plan to hurt others: No Plan service: Yes Current occupational status: employed 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 Current occupational exposures/hazards: No Cognitive needs: No Hearing needs: No Vision needs: Yes (Glasses) Physical Exam ED Vital Signs: Vital Signs - 24 hr 01/10/25 16:25 01/10/25 17:44 01/10/25 18:23 Temperature 98.2 F 97.9 F Pulse Rate 104 H 92 88 Respiratory Rate 16 20 18 Blood Pressure 91/69 136/93 H 135/95 H Pulse Oximetry 98 100 98 Oxygen Delivery Method Room Air Room Air Room Air 01/10/25 19:22 01/10/25 20:00 01/10/25 21:32 Temperature 97.8 F 97.8 F 97.6 F Pulse Rate 83 83 87 Respiratory Rate 22 H 22 H 26 H Blood Pressure 120/88 120/88 125/85 Pulse Oximetry 99 99 96 Oxygen Delivery Method Room Air Room Air Room Air BMI result Body Mass Index 29.2 Const Other: Appearance: Alert. Oriented X3. No acute distress. Eyes: Pupils equal, round and reactive to light. ENT: Pharynx normal. Neck: Normal inspection. Neck supple. No lymph nodes noted. No crepitus CVS: Normal heart rate and rhythm. Pulses normal. Normal S1 and S2 Respiratory: No respiratory distress. Breath sounds normal. No Wheezing. No rales Abdomen: Soft and nontender. No rigidity. No distention. Skin: Skin warm and dry. Normal skin color. Normal skin turgor. Extremities: No lower extremity edema. No Lacerations. No Rash Neuro: Oriented X 3. No motor deficit. No sensory deficit. Moving all extremities. No slurred speech. CN 2 through 12 grossly intact Psych: calm, cooperative, normal affect Course Course Course Narrative: This is a Rapid Medical Exam performed in triage by Gema Lee PA-C. Full HPI, ROS and PE to be performed by primary ED provider. 64-year-old male with a past medical history HTN, HLD, hypothyroid, adrenal insufficiency, metastatic bladder cancer s/p TURBT and right nephrostomy on immunotherapy presenting to the ED c/o sent in by Dr. Moon for GORDON on CKD w/(BUN 84/Cr 3.2) and elevated potassium noted on outpatient labs today. patient reports dry cough x months, had outpatient chest CT today. Follows with Dr. Figueroa, renal, has stent in kidney. PE: SOB on exertion, talking in complete sentences, Hypotensive Plan: EKG, labs, CT Medications Administered Discontinued Medications Generic Name Dose Route Start Last Admin Trade Name Freq PRN Reason Stop Dose Admin Ceftriaxone Sodium 1 gm 01/10/25 17:53 01/10/25 18:16 Ceftriaxone Sodium 1 Gm Vial IVPUSH 01/10/25 17:54 1 gm ONCE ONE Administration Sodium Chloride 1,000 mls @ 999 mls/hr 01/10/25 16:45 01/10/25 18:10 Ns IV 01/10/25 17:45 Not Given .Q1H1M HORTENCIA Sodium Chloride 2,000 mls @ 999 mls/hr 01/10/25 17:53 01/10/25 20:24 Ns IVCONT 01/10/25 19:53 Infused .Q2H1M ONE Infusion Azithromycin 500 mg/ Sodium 250 mls @ 125 mls/hr 01/10/25 17:53 01/10/25 20:24 Chloride IV 01/10/25 19:52 Infused ONCE ONE Infusion Medical Decision Making Medical Decision Making [facility] Narrative: My interpretation of labs: Patient's hematology is at baseline, no acute abnormalities. Chemistry shows an elevated creatinine of 3.28 a few days ago, patient's creatinine level was 2.43. Patient received fluids. Patient's creatinine did not improve much. Earlier today, from triage CT scan was ordered due to patient's chronic shortness of breath. Showed possible pneumonia. Patient was empirically treated with IV antibiotics. However, patient's symptoms have been present for 2 months with no acute changes. No fever. Sepsis is not suspected Patient has a acute on chronic renal failure, not sepsis related. Likely secondary to combination of dehydration and treatment for cancer. Patient's blood pressure improved after IV fluids. Now 120/88, heart rate 83, temperature 97.8 degrees, oxygen saturation 99% on room air Differential Diagnosis Differential Diagnoses: The differential diagnosis associated with the presentation includes (As above) Admission/Observation Consideration of admission/observation: Escalation of care including admission/observation considered Consult Healthcare Provider Management of the patient was discussed with: Hospitalist Lab Data MDM Lab Attestation statement: I reviewed the patient's lab results. 01/10/25 17:35 01/10/25 20:40 Labs: Lab Results 01/10/25 01/10/25 01/10/25 Range/Units 17:34 17:35 20:09 WBC 8.7 (4.8-10.8) X10*3/uL RBC 3.84 L (4.60-5.80) X10*6/uL Hgb 12.5 L (14.0-18.0) g/dl Hct 34.5 L (42.0-52.0) % MCV 89.8 (80.0-98.0) fL MCH 32.6 (27.0-33.0) pg MCHC 36.2 H (31.0-36.0) g/dl RDW 17.0 H (11.0-16.0) % Plt Count 116 L (160-400) X10*3/uL MPV 10.5 (9.4-12.4) fL Immature Gran % (Auto) 4.6 H (0.0-0.4) % Neut % (Auto) 86.6 H (45-73) % Lymph % (Auto) 3.6 L (20-40) % [place] % (Auto) 5.0 (2-11) % Eos % (Auto) 0.0 (0-4) % Baso % (Auto) 0.2 (0-2) % Lymph # (Auto) 0.3 L (1.2-4.9) X10*3/uL [place] # (Auto) 0.4 (0.1-1.2) X10*3/uL Eos # (Auto) 0.0 (0.0-0.4) X10*3/uL Baso # (Auto) 0.0 (0.0-0.2) X10*3/uL Abs Immat Gran (auto) 0.40 H (0.00-0.03) X10*3/uL Absolute Neuts (auto) 7.6 (2.0-8.3) x10*3/uL Absolute Nucleated RBC 0.070 H (0.0-0.012) X10*3/uL Nucleated RBC % (auto) 0.8 H (0.0-0.2) /100WBC Sodium 136 (135-145) mmol/L Potassium 4.8 (3.3-5.1) mmol/L Chloride 106 (96-108) mmol/L Carbon Dioxide 17 L (22-29) mmol/L Anion Gap 18 (12-20) BUN 87 H (9-16) mg/dL Creatinine 3.28 H (0.5-1.4) mg/dL Estim Creat Clear Calc 28.3 Estimated GFR 19 Random Glucose 109 (60-115) mg/dL Lactic Acid 2.1 H* (0.5-2.0) mmol/L Lactic Acid F/U @ 2Hr 0.9 (0.5-2.0) mmol/L Calcium 9.1 (8.4-10.2) mg/dL Magnesium 2.1 (1.6-2.6) mg/dL Total Bilirubin 0.9 (0.0-1.0) mg/dL Direct Bilirubin 0.3 (0.0-0.5) mg/dL AST 58 H (5-37) U/L ALT 55 H (0-40) U/L Alkaline Phosphatase 94 (39-117) U/L Troponin I High Sens 245.0 H* (<3.5-35.0) ng/L B-Natriuretic Peptide 160 H (<100) pg/mL Total Protein 6.6 (6.5-8.0) g/dL Albumin 3.5 (3.5-5.0) g/dL Influenza Type A (PCR) NEGATIVE (Negative) Influenza Type B (PCR) NEGATIVE (Negative) RSV RNA Qual (PCR) NEGATIVE (Negative) SARS-CoV-2 RNA (RT-PCR) NEGATIVE (Negative) 01/10/25 Range/Units 20:40 WBC (4.8-10.8) X10*3/uL RBC (4.60-5.80) X10*6/uL Hgb (14.0-18.0) g/dl Hct (42.0-52.0) % MCV (80.0-98.0) fL MCH (27.0-33.0) pg MCHC (31.0-36.0) g/dl RDW (11.0-16.0) % Plt Count (160-400) X10*3/uL MPV (9.4-12.4) fL Immature Gran % (Auto) (0.0-0.4) % Neut % (Auto) (45-73) % Lymph % (Auto) (20-40) % [place] % (Auto) (2-11) % Eos % (Auto) (0-4) % Baso % (Auto) (0-2) % Lymph # (Auto) (1.2-4.9) X10*3/uL [place] # (Auto) (0.1-1.2) X10*3/uL Eos # (Auto) (0.0-0.4) X10*3/uL Baso # (Auto) (0.0-0.2) X10*3/uL Abs Immat Gran (auto) (0.00-0.03) X10*3/uL Absolute Neuts (auto) (2.0-8.3) x10*3/uL Absolute Nucleated RBC (0.0-0.012) X10*3/uL Nucleated RBC % (auto) (0.0-0.2) /100WBC Sodium 138 (135-145) mmol/L Potassium 4.2 (3.3-5.1) mmol/L Chloride 110 H (96-108) mmol/L Carbon Dioxide 18 L (22-29) mmol/L Anion Gap 14 (12-20) BUN 84 H (9-16) mg/dL Creatinine 3.06 H (0.5-1.4) mg/dL Estim Creat Clear Calc 30.4 Estimated GFR 21 Random Glucose 106 (60-115) mg/dL Lactic Acid (0.5-2.0) mmol/L Lactic Acid F/U @ 2Hr (0.5-2.0) mmol/L Calcium 8.3 L D (8.4-10.2) mg/dL Magnesium (1.6-2.6) mg/dL Total Bilirubin (0.0-1.0) mg/dL Direct Bilirubin (0.0-0.5) mg/dL AST (5-37) U/L ALT (0-40) U/L Alkaline Phosphatase (39-117) U/L Troponin I High Sens 187.2 H* (<3.5-35.0) ng/L B-Natriuretic Peptide (<100) pg/mL Total Protein (6.5-8.0) g/dL Albumin (3.5-5.0) g/dL Influenza Type A (PCR) (Negative) Influenza Type B (PCR) (Negative) RSV RNA Qual (PCR) (Negative) SARS-CoV-2 RNA (RT-PCR) (Negative) Independent Interpretation I performed an independent interpretation of an: CT Scan Radiology Impression Discussion of test interpretation with radiology: I have reviewed the radiologist's reading. Radiologist Impression: Pulmonary opacities concerning for pneumonitis/pneumonia measure up to 4 cm with ground-glass opacities in the imaged right lower lobe. Vascular calcifications are multifocal including imaged coronary arteries. The gallbladder is surgically absent. Liver, spleen, and adrenal glands are unremarkable for noncontrast study. Mild volume loss of the pancreas is noted. Mild pancreatitis is considered given mild fluid of the inferior margin of the uncinate process of the pancreas. No hydronephrosis of either kidney. Perinephric stranding is nonspecific. Right-sided percutaneous nephrostomy tube is in place. No obstructing stone of either kidney or either ureter. Phleboliths are noted in the pelvis. Nonenlarged lymphadenopathy by noncontrast CT. No small bowel obstruction. The appendix is within normal limits. Severe stool burden is present, including the cecum. The prostate gland measures 4.4 cm transverse. Mild wall thickening of the urinary bladder is nonspecific. Small fat containing bilateral inguinal hernias. Gas within the spinal canal is left-sided of the lumbosacral junction in the likely related to intervertebral disc sequestration. Additional dorsal gas is related to left lower facet arthropathy. Additional facet arthropathy is multifocal. Mild vertebral height losses appear old/chronic. IMPRESSION: 1. No hydronephrosis, with right-sided nephrostomy tube in place. 2. Mild wall thickening of the imaged urinary bladder is nonspecific. 3. Multifocal airspace disease concerning for pneumonitis/pneumonia, particularly in the imaged right lung base. Recommend attention on follow-up to ensure resolution. 4. Severe stool burden. No small bowel obstruction The heart is normal size. The ascending aorta is dilated, measuring 4.4 cm in diameter, without change. The aorta is elongated. The visualized thyroid and mediastinum are unremarkable. There is patchy ground-glass opacity within the right lung with involvement of the right upper, middle and lower lobes. No consolidation or pleural effusion. Status post cholecystectomy. No acute fracture. No suspicious bone lesion. There is a right-sided Port-A-Cath. IMPRESSION: 1. Patchy right lung infiltrate suspicious for pneumonia. 2. 4.4 cm aneurysm of the ascending aorta. Critical Care Time Critical Care Time Critical Care Time: Yes Total Critical Care Time: 60 Attestation: I have personally provided critical care time. Time includes review of lab data, radiology results, discussion with consultants, and monitoring for potential decompensation. Intervention performed as documented. Discharge Plan Discharge Clinical Impression: Acute kidney injury superimposed on CKD, Pneumonia Patient Disposition: Admitted As Inpatient Print Language: Pashto
--- NOTE | 2025-01-10 16:28 | ECG_ITS ---
Test Reason : ELEV TROP Blood Pressure : */* mmHG Vent. Rate : 87 BPM Atrial Rate : 87 BPM P-R Int : 170 ms QRS Dur : 88 ms QT Int : 356 ms P-R-T Axes : 37 -7 30 degrees QTcB Int : 428 ms Normal sinus rhythm Possible Left atrial enlargement Possible Inferior infarct , age undetermined Abnormal ECG When compared with ECG of 13-May-2017 18:48, Borderline criteria for Inferior infarct are now Present Referred By: Sotero Reyna Electronically Signed By: BIBIANA MAURICIO MD
[2025-01-10 17:43] LABS: Basophils Percent Auto 0.2 % (0-2); Hematocrit 34.5 % (42.0-52.0); Hemoglobin 12.5 g/dl (14.0-18.0); Imm Gran Pct Auto 4.6 % (0.0-0.4); Lymphocytes Absolute Auto 0.3 X10*3/uL (1.2-4.9); Lymphocytes Percent Auto 3.6 % (20-40); MANUAL DIFF FLAG NO; Mean Corpuscular HGB Conc 36.2 g/dl (31.0-36.0); Mean Corpuscular Hemoglobin 32.6 pg (27.0-33.0); Mean Corpuscular Volume 89.8 fL (80.0-98.0); Mean Platelet Volume 10.5 fL (9.4-12.4); Monocytes Absolute Auto 0.4 X10*3/uL (0.1-1.2); NRBC Pct Auto 0.8 /100WBC (0.0-0.2); Neutrophils Absolute Auto 7.6 x10*3/uL (2.0-8.3); Neutrophils Percent Auto 86.6 % (45-73); Platelet Count 116 X10*3/uL (160-400); Red Blood Count 3.84 X10*6/uL (4.60-5.80); White Blood Count 8.7 X10*3/uL (4.8-10.8)
[2025-01-10 17:44] VITALS: BP 136/93; PULSE 92; RESP 20; TEMP 36.6; O2SAT 100
[2025-01-10 17:58] LABS: Alanine Aminotransferase 55 U/L (0-40); Albumin Level 3.5 g/dL (3.5-5.0); Alkaline Phosphatase 94 U/L (39-117); Anion Gap 18 (12-20); Aspartate Amino Transferase 58 U/L (5-37); Bilirubin Direct 0.3 mg/dL (0.0-0.5); Bilirubin Total 0.9 mg/dL (0.0-1.0); Blood Urea Nitrogen 87 mg/dL (9-16); Calcium 9.1 mg/dL (8.4-10.2); Carbon Dioxide 17 mmol/L (22-29); Chloride 106 mmol/L (96-108); Creatinine Clr Calc Pharmacy 28.3; Estimated Glomerular Filt Rate 19; Glucose Random 109 mg/dL (60-115); Magnesium 2.1 mg/dL (1.6-2.6); Potassium 4.8 mmol/L (3.3-5.1); Sodium 136 mmol/L (135-145); Total Protein 6.6 g/dL (6.5-8.0)
[2025-01-10 18:13] LABS: Lactic Acid 2.1 mmol/L (0.5-2.0)
[2025-01-10] MEDS: 0.9 % Sodium Chloride 2,000 ML 999 ML IVCONT (18:16)
[2025-01-10] MEDS: Azithromycin 500 MG in 0.9 % Sodium Chloride 250 ML 125 MG IV (18:16)
[2025-01-10] MEDS: cefTRIAXone sodium 1 GM VIAL IVPUSH (18:16)
[2025-01-10 18:21] LABS: Influenza A PCR NEGATIVE (Negative); Influenza B PCR NEGATIVE (Negative); Resp Syncy Virus RNA Qual PCR NEGATIVE (Negative); SARS COV2 PCR INHOUSE NEGATIVE (Negative)
[2025-01-10 18:23] VITALS: BP 135/95; PULSE 88; RESP 18; O2SAT 98
--- NOTE | 2025-01-10 18:43 | PC.NURSE ---
Verified with that pt is to receive 2 L of NS.
[2025-01-10 18:44] LABS: B Type Natriuretic Peptide 160 pg/mL (<100)
[2025-01-10 19:22] VITALS: BP 120/88; PULSE 83; RESP 22; TEMP 36.6; O2SAT 99
[2025-01-10 19:39] LABS: Reflex Lactate? Lactic Acid Added
[2025-01-10 20:00] VITALS: BP 120/88; PULSE 83; RESP 22; TEMP 36.6; O2SAT 99
[2025-01-10 20:32] LABS: ~Lactic Acid-LAB USE ONLY 0.9 mmol/L (0.5-2.0)
[2025-01-10 21:03] LABS: Anion Gap 14 (12-20); Blood Urea Nitrogen 84 mg/dL (9-16); Calcium 8.3 mg/dL (8.4-10.2); Carbon Dioxide 18 mmol/L (22-29); Chloride 110 mmol/L (96-108); Creatinine Clr Calc Pharmacy 30.4; Estimated Glomerular Filt Rate 21; Glucose Random 106 mg/dL (60-115); Potassium 4.2 mmol/L (3.3-5.1); Sodium 138 mmol/L (135-145)
[2025-01-10 21:16] LABS: Troponin-I High Sensitivity 187.2 ng/L (<3.5-35.0)
--- NOTE | 2025-01-10 21:27 | PC.NURSE ---
Per , pt. okay to drink and eat at this time.
[2025-01-10 21:32] VITALS: BP 125/85; PULSE 87; RESP 26; TEMP 36.4; O2SAT 96
[2025-01-10 22:36] LABS: Appearance Urine Clear; Color Urine Yellow; Glucose Urine UA Negative (Negative); Leukocyte Esterase Urine Moderate (2+) (Negative); Nitrite Urine Negative (Negative); UMIC TRIGGER UACC YES; Urine Blood Trace (Negative); Urine Ketones Trace mg/dL (Negative); Urine Protein 30 (1+) mg/dL (Neg-Trace)
--- NOTE | 2025-01-10 22:41 | P.HPHOSP_ITS ---
History of Present Illness Date of Service: 01/10/25 Attending physician on admission: Smooth Segura Chief Complaint: GORDON on outpatient labs Pt is a 64-year-old male with a PMH significant for?metastatic bladder cancer s/p TURP in right nephrostomy on immunotherapy, secondary adrenal insufficiency, hypothyroidism, HTN, HLD, and GERD who presents to the ED after pre chemo routine labs showed worsening kidney function. Pt reports has been eating and drinking normally without changes to bowel or bladder habits. No nausea, vomiting, diarrhea. Also reports has had cold-like symptoms for the past 8 months with a particularly annoying, lingering dry cough. Says has been worked up by Oncology and so far been negative for respiratory infection. Complains of SOB especially with exertion. No fever or chills. Denies chest pain/pressure, palpitations. In the ED pt was tachycardic up to 112, tachypneic up to 26, and intermittently hypertensive up to 136/93. Labs were significant for creatinine 3.20 (elevated from 2.43 on 01/03/2025), lactic acid 2.1 with repeat 0.9, initial troponin 245.0 with repeat down trending to 187.2. BNP mildly elevated at 160. No leukocytosis. UA not consistent with acute UTI. Tested negative for flu, COVID, RSV. CT?chest showed patchy right lung infiltrate suspicious for pneumonia, as well as 4.4 cm aneurysm of ascending aorta. CTA of abdomen and pelvis with severe stool burden without SBO, and negative for hydronephrosis and with right-sided nephrostomy tube in place. Pt was treated with IVF, ceftriaxone, and azithromycin. Pt will be admitted to the hospital for treatment and further evaluation of GORDON on CKD and community-acquired pneumonia with sepsis. Review of Systems 2 Review of Systems: Negative except for that which is stated in the [facility] Medical History History of immune checkpoint inhibitor therapy Hypophysitis Adrenal insufficiency Hypothyroidism Port-A-Cath in place (02/16/24) History of blood transfusion Bladder cancer Obesity (BMI 30-39.9) Pure hypercholesterolemia Hyperlipemia Carpal tunnel syndrome Family History Father Multiple sclerosis, primary progressive Mother No problems noted. Sister In good health Son In good health Daughter In good health Surgical History Mass of left axilla (05/31/24) Hx of colonoscopy Hx of cystoscopy History of surgery History of hand surgery History of ankle surgery History of cholecystectomy Social History Household Members: None Housing: House Are you a primary care attendant to a significant other at home: No Do you presently have visiting nurse or other home services: No Alcohol intake: current Alcohol intake frequency: holidays/special occasions only Patient Tobacco Use Status: Former Tobacco user Tobacco use type: Cigarette Smoked in Last 30 Days: No e-Cigarette/Vaping Use: Never Used Second Hand Smoke Exposure: Yes Use of substances other than those prescribed or required for medical reasons: No Advance Directives: Yes Advance Directives on File: Yes Advance Directives Date on File: 03/19/24 Do you have a plan to hurt others: No Plan service: Yes Current occupational status: employed 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 Current occupational exposures/hazards: No Cognitive needs: No Hearing needs: No Vision needs: Yes (Glasses) Meds Allergies Allergy/AdvReac Type Severity Reaction Status Date / Time No Known Allergies Allergy Verified 01/10/25 16:32 [No Known Allergies*] Active Medications: Current Medications Acetaminophen (Acetaminophen 325 Mg Tablet) 650 mg PO Q6H PRN PRN Reason: Pain, Mild 1-3,fever,headache Calcium Carbonate (Calcium Carbonate 750 Mg Tab.Chew) 750 mg PO Q4H PRN PRN Reason: Heartburn Enoxaparin Sodium (Enoxaparin Sodium 40 Mg/0.4 Ml Syringe) 40 mg SUBCUT Q24H [facility] Magnesium Hydroxide (Milk Of Magnesia 30 Ml Oral.Susp) 30 ml PO DAILY PRN PRN Reason: Constipation Melatonin (Melatonin 3 Mg Tablet) 6 mg PO BEDTIME PRN PRN Reason: Insomnia Ondansetron HCl (Ondansetron Hcl 4 Mg/2 Ml Vial) 4 mg IVPUSH Q8H PRN PRN Reason: Nausea and Vomiting Sodium Chloride (0.9 % Sodium Chloride Flush 3 Ml Syringe) 3 ml IVFLUSH QSHIFT [facility] Home Medications ?Medication ?Instructions ?Recorded ?Confirmed ?Last Taken ?Type levothyroxine 100 mcg tablet 100 mcg PO DAILY@1300 10/18/24 01/06/25 10/17/24 History Physical Exam 2 Vital Signs and Narrative: Vital Signs: Last Vital Signs Temp 97.6 F 01/10/25 21:32 Pulse 87 01/10/25 21:32 Resp 26 H 01/10/25 21:32 BP 125/85 01/10/25 21:32 Pulse Ox 96 01/10/25 21:32 O2 Del Method Room Air 01/10/25 21:32 BMI result Body Mass Index 29.2 General: AOx3, no acute distress Resp: CTA bilaterally. Pt noted to have persistent nonproductive cough during interview and exam. CVS: S1, S2, RRR GI: +BS, NT, no distention Skin: Warm, dry Neuro: Cranial nerves II-XII grossly intact bilaterally. Motor grossly intact bilaterally Extremities: No edema Psych: Appropriate affect Results Labs 01/10/25 17:35 01/10/25 20:40 Labs: Laboratory Results - last 24 hr 01/10/25 01/10/25 01/10/25 17:34 17:35 20:09 MCV 89.8 MCH 32.6 MCHC 36.2 H RDW 17.0 H Plt Count 116 L MPV 10.5 Immature Gran % (Auto) 4.6 H Neut % (Auto) 86.6 H Lymph % (Auto) 3.6 L [place] % (Auto) 5.0 Eos % (Auto) 0.0 Baso % (Auto) 0.2 Lymph # (Auto) 0.3 L [place] # (Auto) 0.4 Eos # (Auto) 0.0 Baso # (Auto) 0.0 Abs Immat Gran (auto) 0.40 H Absolute Neuts (auto) 7.6 Absolute Nucleated RBC 0.070 H Nucleated RBC % (auto) 0.8 H Anion Gap 18 Estim Creat Clear Calc 28.3 Estimated GFR 19 Random Glucose 109 Lactic Acid 2.1 H* Lactic Acid F/U @ 2Hr 0.9 Calcium 9.1 Magnesium 2.1 Total Bilirubin 0.9 Direct Bilirubin 0.3 AST 58 H ALT 55 H Alkaline Phosphatase 94 B-Natriuretic Peptide 160 H Total Protein 6.6 Albumin 3.5 Urine Color Urine Appearance Urine pH Ur Specific [place] Urine Protein Urine Glucose (UA) Urine Ketones Urine Blood Urine Nitrite Ur Leukocyte Esterase Influenza Type A (PCR) NEGATIVE Influenza Type B (PCR) NEGATIVE RSV RNA Qual (PCR) NEGATIVE SARS-CoV-2 RNA (RT-PCR) NEGATIVE 01/10/25 01/10/25 20:40 22:17 MCV MCH MCHC RDW Plt Count MPV Immature Gran % (Auto) Neut % (Auto) Lymph % (Auto) [place] % (Auto) Eos % (Auto) Baso % (Auto) Lymph # (Auto) [place] # (Auto) Eos # (Auto) Baso # (Auto) Abs Immat Gran (auto) Absolute Neuts (auto) Absolute Nucleated RBC Nucleated RBC % (auto) Anion Gap 14 Estim Creat Clear Calc 30.4 Estimated GFR 21 Random Glucose 106 Lactic Acid Lactic Acid F/U @ 2Hr Calcium 8.3 L D Magnesium Total Bilirubin Direct Bilirubin AST ALT Alkaline Phosphatase B-Natriuretic Peptide Total Protein Albumin Urine Color Yellow Urine Appearance Clear Urine pH 5.0 Ur Specific [place] 1.020 Urine Protein 30 (1+) H Urine Glucose (UA) Negative Urine Ketones Trace Urine Blood Trace H Urine Nitrite Negative Ur Leukocyte Esterase Moderate (2+) H Influenza Type A (PCR) Influenza Type B (PCR) RSV RNA Qual (PCR) SARS-CoV-2 RNA (RT-PCR) Assessment and Plan (1) Acute kidney injury superimposed on CKD: Status: Acute (2) Community acquired pneumonia: Status: Acute Plan Pt is a 64-year-old male with a PMH significant for?metastatic bladder cancer s/p TURP in right nephrostomy on immunotherapy, secondary adrenal insufficiency, hypothyroidism, HTN, HLD, and GERD who presents to the ED after pre chemo routine labs showed worsening kidney function. Pt will be admitted to the hospital for treatment and further evaluation of GORDON on CKD and community- acquired pneumonia with sepsis. GORDON on CKD Initial creatinine 3 point 2 8 with repeat mildly improved to 3.06 after IVF Pt received 1 L IVF in the ED Will place on maintenance fluids x1 L Unclear etiology: Pt denies nausea, vomiting, diarrhea; reports has been eating and drinking normally Nephrology consult Follow creatinine Pneumonia with sepsis CTA of chest showing patchy right lung infiltrate suspicious for pneumonia Pt with cold-like symptoms for a long time, up to x8 months Lingering nonproductive cough Meets sepsis criteria with tachycardia and tachypnea; lactic acid 2.1 with repeat 0.9 Pt received IVF and started on broad-spectrum antibiotics in the ED Will treat with ceftriaxone azithromycin, started 01/10/2025 Secondary adrenal insufficiency Will stress dose with hydrocortisone IV 25 mg t.i.d. x3 days, then taper Follow up outpatient with endocrinology HTN Continue amlodipine Hypothyroidism Continue levothyroxine HLD Continue statin GERD Continue omeprazole Bladder cancer Follow up outpatient with Oncology Full Code Attending:?Dr. Segura DVT Prophylaxis: Lovenox Pt will require a hospitalization of at least two nights for treatment of?GORDON on CKD and community-acquired pneumonia with sepsis. Pt will require hospital level care for administration of IVF, IV antibiotics, IV steroids for stress dosing, as well as close monitoring of labs and cardiac function. Quality Stroke Does the patient have a stroke diagnosis?: No VTE Prior VTE?: No VTE Risk Level:: Medical - moderate - high VTE Device Contraindication: Treatment Not Indicated VTE Drug Contraindication: N/A - Med Ordered
[2025-01-10 22:50] LABS: Bacteria Urine None Seen (None Seen); RBC Urine 0-2 /HPF (0-2); UACC Culture Trigger YES
[2025-01-11] VITALS (7 sets, daily range): BP systolic 109–126; BP diastolic 72–81; PULSE 81–96; RESP 13–33; TEMP 36.3–36.6; O2SAT 97–100; BMI 26.6
--- NOTE | 2025-01-11 | ECG_ITS ---
Test Reason : COUGH,ELEVATED K+ Blood Pressure : */* mmHG Vent. Rate : 90 BPM Atrial Rate : 90 BPM P-R Int : 160 ms QRS Dur : 84 ms QT Int : 340 ms P-R-T Axes : 37 -15 45 degrees QTcB Int : 415 ms Normal sinus rhythm Normal ECG When compared to the previous EKG of No significant changes seen Referred By: Sotero Reyna Electronically Signed By: BIBIANA MAURICIO MD
--- NOTE | 2025-01-11 00:25 | PC.NURSE ---
Report given SILVANO Ayala.
--- NOTE | 2025-01-11 00:37 | PC.NURSE ---
This science writer assumed care of this Pt at this time.
[2025-01-11] MEDS: Hydrocortisone Sod Succ/PF 100 MG VIAL 25 MG IVPUSH ×2 (01:26→07:04)
[2025-01-11] MEDS: Lactated Ringers 1,000 ML 100 ML IVCONT (01:28)
[2025-01-11] MEDS: 0.9 % Sodium Chloride Flush 3 ML SYRINGE IVFLUSH ×4 (01:31→21:02)
[2025-01-11] MEDS: Melatonin 3 MG TABLET 6 MG PO (01:35)
--- NOTE | 2025-01-11 03:16 | PC.NURSE ---
Pt A&Ox3, denies any pain. Pt upset about wanting to ambulated to BR independently. Pt walked with slow unsteady gait, furniture surfing. Pt has a right nephrostomy tube intact. Pt requesting sleep aid with + effect.
[2025-01-11 06:03] LABS: MANUAL DIFF FLAG NO
[2025-01-11 06:04] LABS: Basophils Percent Auto 0.1 % (0-2); Hematocrit 30.5 % (42.0-52.0); Hemoglobin 11.1 g/dl (14.0-18.0); Imm Gran Abs Auto 0.27 X10*3/uL (0.00-0.03); Imm Gran Pct Auto 3.8 % (0.0-0.4); Lymphocytes Absolute Auto 0.9 X10*3/uL (1.2-4.9); Lymphocytes Percent Auto 12.2 % (20-40); Mean Corpuscular HGB Conc 36.4 g/dl (31.0-36.0); Mean Corpuscular Hemoglobin 32.8 pg (27.0-33.0); Mean Corpuscular Volume 90.2 fL (80.0-98.0); Mean Platelet Volume 9.4 fL (9.4-12.4); Monocytes Absolute Auto 0.3 X10*3/uL (0.1-1.2); Monocytes Percent Auto 4.8 % (2-11); Neutrophils Absolute Auto 5.6 x10*3/uL (2.0-8.3); Neutrophils Percent Auto 79.1 % (45-73); Red Blood Count 3.38 X10*6/uL (4.60-5.80); Red Cell Distribution Width 17.2 % (11.0-16.0); White Blood Count 7.1 X10*3/uL (4.8-10.8)
[2025-01-11 06:09] LABS: Platelet Count 84 X10*3/uL (160-400)
[2025-01-11 06:21] LABS: Anion Gap 13 (12-20); Blood Urea Nitrogen 72 mg/dL (9-16); Calcium 8.5 mg/dL (8.4-10.2); Carbon Dioxide 17 mmol/L (22-29); Chloride 111 mmol/L (96-108); Creatinine Clr Calc Pharmacy 36.9; Estimated Glomerular Filt Rate 26; Glucose Random 124 mg/dL (60-115); Potassium 4.2 mmol/L (3.3-5.1); Sodium 137 mmol/L (135-145)
--- NOTE | 2025-01-11 07:58 | PC.NURSE ---
patient a&ox3, vss, rr equal/non labored, lungs diminished throughout, IVF running per order, pt has a rt port a cath not accessed, rt nephrostomy tube- pt self care with, oob with stby assist per report, call tran within reach, plan of care ongoing.
--- NOTE | 2025-01-11 10:10 | PHA.MEDREC ---
Addendum entered by Kyaw Uribe 01/11/25 11:37: reviewed Original Note: Pharmacy Consult ? Medication Reconciliation Pharmacy has completed the medication reconciliation. Spoke to pt to confirm meds. Per pt, not taking Guaifenesin and tapering prednisone. On 40 mg BID until Saturday 01/13, then 60 mg BID x 10 days.
--- NOTE | 2025-01-11 12:00 | PC.NURSE ---
patient a&ox3, pt c/o pain in back from the bed asked if we could obtain a different bed, this nurse was able to get a inpt bed, pt ambulated to the bathroom, the beds were swapped out and patient was thankful stating he feels better on the new bed. nephrostomy tube output a small amount of greenish tinted fluid- pt is self care with this tube. call tran within reach, plan of care ongoing
--- NOTE | 2025-01-11 12:51 | HO.PM.IMPN ---
Subjective Subjective Date of Service: 01/11/25 Interval History: seen and evaluated this morning feels anxious about hospital stay denies fever or chills breathing impropving Cr improving no other events Review of Systems Review of Systems: Yes all other systems are reviewed and are negative Physical Exam Vital Signs: Vital Signs: Last Vital Signs Temp 97.5 F 01/11/25 08:33 Pulse 92 01/11/25 08:33 Resp 13 01/11/25 08:33 BP 112/74 01/11/25 08:33 Pulse Ox 100 01/11/25 08:33 O2 Del Method Room Air 01/11/25 08:33 BMI result Body Mass Index 29.2 Const: Other: Constitutional : interactive, not in distress Cardiovascular : no JVP, no lower extremity edema Respiratory : bilateral chest movement, not in resp distress Gastrointestinal: soft, lax, Non tender Skin : Warm, Dry Neurological : Alert & oriented , No focal deficit Objective Data Active Medications Acetaminophen (Acetaminophen 325 Mg Tablet) 650 mg PO Q6H PRN PRN Reason: Pain, Mild 1-3,fever,headache Albuterol Sulfate (Albuterol Sulfate 90 Mcg 8 Gm Inhaler) 2 puff INHALE Q6H PRN PRN Reason: Shortness Of Breath Or Wheezing Atorvastatin Calcium (Atorvastatin Calcium 20 Mg Tablet) 20 mg PO BEDTIME HORTENC[facility] Calcium Carbonate (Calcium Carbonate 750 Mg Tab.Chew) 750 mg PO Q4H PRN PRN Reason: Heartburn Ceftriaxone Sodium (Ceftriaxone Sodium 1 Gm Vial) 1 gm IVPUSH Q24H [facility] Enoxaparin Sodium (Enoxaparin Sodium 40 Mg/0.4 Ml Syringe) 40 mg SUBCUT Q24H [facility] Last Admin: 01/10/25 23:35 Dose: Not Given Documented By: ESTRELLA Non-Admin Reason: Patient Refused Azithromycin 500 mg/ Sodium (Chloride) 250 mls @ 125 mls/hr IV Q24H [facility] Levothyroxine Sodium (Levothyroxine Sodium 100 Mcg Tablet) 100 mcg PO DAILY@1300 [facility] Magnesium Hydroxide (Milk Of Magnesia 30 Ml Oral.Susp) 30 ml PO DAILY PRN PRN Reason: Constipation Melatonin (Melatonin 3 Mg Tablet) 6 mg PO BEDTIME PRN PRN Reason: Insomnia Last Admin: 01/11/25 01:35 Dose: 6 mg Documented By: COSME Omeprazole (Omeprazole 20 Mg Capsule.Dr) 20 mg PO DAILY@0630 [facility] Ondansetron HCl (Ondansetron Hcl 4 Mg/2 Ml Vial) 4 mg IVPUSH Q8H PRN PRN Reason: Nausea and Vomiting Prednisone (Prednisone 10 Mg Tablet) 40 mg PO BID [facility] Stop: 01/13/25 08:59 Prednisone (Prednisone 10 Mg Tablet) 30 mg PO BID [facility] Stop: 01/23/25 08:59 Prednisone (Prednisone 10 Mg Tablet) 20 mg PO BID [facility] Stop: 02/07/25 08:59 Prednisone (Prednisone 10 Mg Tablet) 30 mg PO DAILY [facility] Stop: 02/18/25 08:59 Prednisone (Prednisone 10 Mg Tablet) 20 mg PO DAILY [facility] Stop: 02/28/25 08:59 Prednisone (Prednisone 10 Mg Tablet) 10 mg PO DAILY [facility] Stop: 03/11/25 08:59 Sodium Chloride (0.9 % Sodium Chloride Flush 3 Ml Syringe) 3 ml IVFLUSH QSHIFT [facility] Last Admin: 01/11/25 07:04 Dose: 3 ml Documented By: NICHOLAS Labs 01/11/25 05:59 01/11/25 05:59 Labs: Laboratory Results - last 24 hr 01/10/25 01/10/25 01/10/25 17:34 17:35 20:09 MCV 89.8 MCH 32.6 MCHC 36.2 H RDW 17.0 H Plt Count 116 L MPV 10.5 Immature Gran % (Auto) 4.6 H Neut % (Auto) 86.6 H Lymph % (Auto) 3.6 L [place] % (Auto) 5.0 Eos % (Auto) 0.0 Baso % (Auto) 0.2 Lymph # (Auto) 0.3 L [place] # (Auto) 0.4 Eos # (Auto) 0.0 Baso # (Auto) 0.0 Abs Immat Gran (auto) 0.40 H Absolute Neuts (auto) 7.6 Absolute Nucleated RBC 0.070 H Nucleated RBC % (auto) 0.8 H Anion Gap 18 Estim Creat Clear Calc 28.3 Estimated GFR 19 Random Glucose 109 Lactic Acid 2.1 H* Lactic Acid F/U @ 2Hr 0.9 Calcium 9.1 Magnesium 2.1 Total Bilirubin 0.9 Direct Bilirubin 0.3 AST 58 H ALT 55 H Alkaline Phosphatase 94 B-Natriuretic Peptide 160 H Total Protein 6.6 Albumin 3.5 Urine Color Urine Appearance Urine pH Ur Specific [place] Urine Protein Urine Glucose (UA) Urine Ketones Urine Blood Urine Nitrite Ur Leukocyte Esterase Urine RBC Urine WBC Ur Squamous Epith Cells Urine Bacteria Hyaline Casts Influenza Type A (PCR) NEGATIVE Influenza Type B (PCR) NEGATIVE RSV RNA Qual (PCR) NEGATIVE SARS-CoV-2 RNA (RT-PCR) NEGATIVE 01/10/25 01/10/25 01/11/25 20:40 22:17 05:59 MCV 90.2 MCH 32.8 MCHC 36.4 H RDW 17.2 H Plt Count 84 L D MPV 9.4 Immature Gran % (Auto) 3.8 H Neut % (Auto) 79.1 H Lymph % (Auto) 12.2 L [place] % (Auto) 4.8 Eos % (Auto) 0.0 Baso % (Auto) 0.1 Lymph # (Auto) 0.9 L [place] # (Auto) 0.3 Eos # (Auto) 0.0 Baso # (Auto) 0.0 Abs Immat Gran (auto) 0.27 H Absolute Neuts (auto) 5.6 Absolute Nucleated RBC 0.070 H Nucleated RBC % (auto) 1.0 H Anion Gap 14 13 Estim Creat Clear Calc 30.4 36.9 Estimated GFR 21 26 Random Glucose 106 124 H Lactic Acid Lactic Acid F/U @ 2Hr Calcium 8.3 L D 8.5 Magnesium Total Bilirubin Direct Bilirubin AST ALT Alkaline Phosphatase B-Natriuretic Peptide Total Protein Albumin Urine Color Yellow Urine Appearance Clear Urine pH 5.0 Ur Specific [place] 1.020 Urine Protein 30 (1+) H Urine Glucose (UA) Negative Urine Ketones Trace Urine Blood Trace H Urine Nitrite Negative Ur Leukocyte Esterase Moderate (2+) H Urine RBC 0-2 Urine WBC 6-10 Ur Squamous Epith Cells 3-5 Urine Bacteria None Seen Hyaline Casts 3-5 Influenza Type A (PCR) Influenza Type B (PCR) RSV RNA Qual (PCR) SARS-CoV-2 RNA (RT-PCR) Assessment and Plan (1) Community acquired pneumonia: Status: Acute (2) Pneumonia: Status: Acute (3) Acute kidney injury superimposed on CKD: Status: Acute (4) Sepsis: Status: Acute Plan Pt is a 64-year-old male with a PMH significant for?metastatic bladder cancer s/p TURP in right nephrostomy on immunotherapy, secondary adrenal insufficiency, hypothyroidism, HTN, HLD, and GERD who presents to the ED after pre chemo routine labs showed worsening kidney function. Pt will be admitted to the hospital for treatment and further evaluation of GORDON on CKD and community-acquired pneumonia with sepsis. GORDON on CKD Improving Cr 2.6 maintenance fluids Likely related to Bactrim use, to hold Nephrology consulted Follow creatinine, I\O Pneumonia with sepsis CTA of chest showing patchy right lung infiltrate suspicious for pneumonia Pending final cultures Continue ceftriaxone azithromycin, started 01/10/2025 Secondary adrenal insufficiency DC Hydrocortisone Continue tapering dose PRednisone Follow up outpatient with endocrinology HTN Continue amlodipine Hypothyroidism Continue levothyroxine HLD Continue statin GERD Continue omeprazole Bladder cancer Follow up outpatient with Oncology Full Code DVT Prophylaxis: Lovenox Pt will require a hospitalization overnight for treatment of?GORDON on CKD and community-acquired pneumonia with sepsis. Pt will require hospital level care for administration of IVF, IV antibiotics, IV steroids for stress dosing, as well as close monitoring of labs and cardiac function. Quality Stroke Does the patient have a stroke diagnosis?: No VTE Prior VTE?: No VTE Risk Level:: Medical - moderate - high VTE Device Contraindication: Treatment Not Indicated VTE Drug Contraindication: N/A - Med Ordered
[2025-01-11] MEDS: Levothyroxine Sodium 100 MCG TABLET PO (14:04)
--- NOTE | 2025-01-11 16:40 | MHC.CM.PN ---
Addendum entered by Luna Lu 01/12/25 08:22: PT IS ACTIVE WITH [facility] Original Note: PT REPORTS HE LIVES ALONE AND IS INDEPENDENT WITH SELF CARE HE REPORTS HE IS ACTIVE WITH [facility], CM WILL CONFIRM HCP ON FILE AND VERIFIED PCP: [facility] DELIVERED DCP: [facility]
[2025-01-11] MEDS: cefTRIAXone sodium 1 GM VIAL IVPUSH (17:39)
[2025-01-11] MEDS: Azithromycin 500 MG in 0.9 % Sodium Chloride 250 ML 125 MG IV (17:42)
--- NOTE | 2025-01-11 19:25 | PC.NURSE ---
assumed care of patient, patient extremely upset d/t still being stuck holding in emergency department. requested to speak to someone in charge, parts analyst made aware
[2025-01-11] MEDS: Atorvastatin Calcium 20 MG TABLET PO (21:01)
[2025-01-11] MEDS: Enoxaparin Sodium 40 MG/0.4 ML SYRINGE SUBCUT (21:01)
[2025-01-11] MEDS: predniSONE 10 MG TABLET 40 MG PO (21:01)
[2025-01-12 03:12] VITALS: BP 124/83; PULSE 90; RESP 16; TEMP 36; O2SAT 95
[2025-01-12] MEDS: Omeprazole 20 MG CAPSULE.DR PO (06:30)
[2025-01-12 07:52] VITALS: BP 131/86; PULSE 88; RESP 16; TEMP 36.2; O2SAT 98
[2025-01-12] MEDS: 0.9 % Sodium Chloride Flush 3 ML SYRINGE IVFLUSH (08:42)
[2025-01-12] MEDS: predniSONE 10 MG TABLET 40 MG PO (08:42)
[2025-01-12 10:04] LABS: Anion Gap 15 (12-20); Blood Urea Nitrogen 44 mg/dL (9-16); Calcium 8.3 mg/dL (8.4-10.2); Carbon Dioxide 19 mmol/L (22-29); Chloride 108 mmol/L (96-108); Creatinine Clr Calc Pharmacy 51.8; Estimated Glomerular Filt Rate 43; Glucose Random 133 mg/dL (60-115); Sodium 138 mmol/L (135-145)
--- NOTE | 2025-01-12 10:32 | PM.DS ---
DS: Providers Provider Date of Service: 01/12/25 Date of admission: 01/10/25 22:31 Date of discharge: 01/12/25 Primary care physician: Mahi Danielle MD Consults: 01/10/25 21:54 Consult to Nephrology Routine Consulting Provider: [facility] Reason for consultation: Gordon on CKD 01/11/25 20:54 Consult to Wound Care Routine Reason for consultation: scabbed areas throughout body, ? chemo? DS: Diagnosis Discharge Diagnosis (1) Community acquired pneumonia: Status: Acute (2) Pneumonia: Status: Acute (3) Acute kidney injury superimposed on CKD: Status: Acute (4) Sepsis: Status: Acute DS: Summary Hospital Course Hospital Course: Admission note HPI Pt is a 64-year-old male with a PMH significant for?metastatic bladder cancer s/p TURP in right nephrostomy on immunotherapy, secondary adrenal insufficiency, hypothyroidism, HTN, HLD, and GERD who presents to the ED after pre chemo routine labs showed worsening kidney function. Pt reports has been eating and drinking normally without changes to bowel or bladder habits. No nausea, vomiting, diarrhea. Also reports has had cold-like symptoms for the past 8 months with a particularly annoying, lingering dry cough. Says has been worked up by Oncology and so far been negative for respiratory infection. Complains of SOB especially with exertion. No fever or chills. Denies chest pain/pressure, palpitations. In the ED pt was tachycardic up to 112, tachypneic up to 26, and intermittently hypertensive up to 136/93. Labs were significant for creatinine 3.20 (elevated from 2.43 on 01/03/2025), lactic acid 2.1 with repeat 0.9, initial troponin 245.0 with repeat down trending to 187.2. BNP mildly elevated at 160. No leukocytosis. UA not consistent with acute UTI. Tested negative for flu, COVID, RSV. CT?chest showed patchy right lung infiltrate suspicious for pneumonia, as well as 4.4 cm aneurysm of ascending aorta. CTA of abdomen and pelvis with severe stool burden without SBO, and negative for hydronephrosis and with right-sided nephrostomy tube in place. Pt was treated with IVF, ceftriaxone, and azithromycin. Pt will be admitted to the hospital for treatment and further evaluation of GORDON on CKD and community-acquired pneumonia with sepsis. Hospital course The patient was admitted for: # GORDON on CKD3 with Cr on admission of 3 improved with hydration and holding nephrotoxins to 1.6 during hospital stay. Discontinue Bactrim at time of discharge. # Pneumonia with sepsis at presentation as CTA of chest showing patchy right lung infiltrate suspicious for pneumonia treated with IV Ceftriaxone azithromycin, started 01/10/2025 with good response as cough and dyspnea improved. His blood cultures remained negative. To be discharged on PO Azithromycin and Ceftin for 1 week to finish total of 10 days of antibiotics. # Secondary adrenal insufficiency. asymptomatic as he was kept on tapering dose PRednisone per recommendations from oncology team. Plan to follow up outpatient with endocrinology. Discharge plan Stay well hydrated Stop Bactrim Start Azithromycin and Ceftin for 1 more week Cream for athlete foot twice a day for 1-2 weeks To follow with Oncology infusion as planned Time Attestation Discharge Coordination Time (in mins): 42 Quality: Safe Use of Opioids Does Pt have an Active Cancer Diagnosis on the Problem List?: Yes Opioid Measure Date for [facility] Report: 12/13/24 Opioid Measure Time for [facility] Report: 10:40 Quality: Stroke Does the patient have a stroke diagnosis?: No Physical Exam Vital Signs: Vital Signs: Last Vital Signs Temp 97.2 F 01/12/25 07:52 Pulse 88 01/12/25 07:52 Resp 16 01/12/25 07:52 BP 131/86 01/12/25 07:52 Pulse Ox 98 01/12/25 07:52 O2 Del Method Room Air 01/12/25 07:52 BMI result Body Mass Index 26.6 Const: Other: Constitutional : interactive, not in distress Cardiovascular : no JVP, no lower extremity edema Respiratory : bilateral chest movement, not in resp distress Gastrointestinal: soft, lax, Non tender Skin : Warm, Dry Neurological : Alert & oriented , No focal deficit DS: Data Data Completed and Pending Completed studies during hospitalization [Text1]: Procedures Change Drainage Device in Kidney, External Approach (10/18/24) Labs on day of discharge: Laboratory Results - last 24 hr 01/12/25 09:37 Hold Purple Top SEE NOTE Sodium 138 Potassium 4.0 Chloride 108 Carbon Dioxide 19 L Anion Gap 15 BUN 44 H Creatinine 1.63 H Estim Creat Clear Calc 51.8 Estimated GFR 43 Random Glucose 133 H Calcium 8.3 L Preliminary micro results at discharge 01/10/25 17:35 Blood Culture - Preliminary Blood - Venous No growth after 24 hours. 01/10/25 17:35 Blood Culture - Preliminary Blood - Venous No growth after 24 hours. Imaging Chest x-ray: Radiologist's impression: IMPRESSION: 1. No hydronephrosis, with right-sided nephrostomy tube in place. 2. Mild wall thickening of the imaged urinary bladder is nonspecific. 3. Multifocal airspace disease concerning for pneumonitis/pneumonia, particularly in the imaged right lung base. Recommend attention on follow-up to ensure resolution. 4. Severe stool burden. No small bowel obstruction. This document has been electronically signed by: Osmar García MD on 01/10/2025 20:14:17 CTA chest IMPRESSION: 1. Patchy right lung infiltrate suspicious for pneumonia. 2. 4.4 cm aneurysm of the ascending aorta. This document has been electronically signed by: Sheri Noe MD on 01/10/2025 16:51:31 Discharge Plan Discharge Anticipated Discharge Date/Time: 01/12/25 10:27 Patient Disposition: Home, Self-Care Discharge Diagnosis: Pneumonia Acute kidney injury Referrals: Physical Therapy - [facility] [Outside] - 1 Week (8-12 sessions for balance, strength and fall prevention ) Po,Mahi Krishnamurthy MD [Primary Care Provider] - 1 Week Discharge Medications: New clotrimazole 1 % Cream 1 appl topical BID Qty: 45 1RF Protocol: Apply to: Apply to: Feet and between toes bilaterally Rx Instructions: Feet and between toes bilaterally azithromycin 500 mg tablet 500 mg PO DAILY 7 Days Qty: 7 0RF cefuroxime axetil 500 mg tablet 500 mg PO BID Qty: 14 0RF Continued (DME) needle (disp) 18 G [BD Regular Bevel [place]] 18 gauge x 1 needle See Rx Instructions .Route Qty: 50 0RF Rx Instructions: As directed to draw hydrocortisone in case of emergency atorvastatin 20 mg tablet 20 mg PO BEDTIME 90 Days Qty: 90 1RF amlodipine 5 mg tablet 10 mg PO DAILY 1RF omeprazole 20 mg capsule,delayed release(DR/EC) 20 mg PO DAILY@0630 prednisone 20 mg tablet See Rx Instructions .ROUTE .COMPLEX Rx Instructions: 40 mg orally BID, SWAP TO 30 MG BID x10 DAYS ON: 01/13/25;Take 100 mg daily for 10 days followed by 80 mg daily for 10 days followed by 60 mg daily for 10 days followed by 40 mg daily for 2 weeks followed by 30 mg daily for 10 days followed by 20 mg daily for 10 days followed by 10 mg daily for 10 days and then stopped. Resume hydrocortisone twice a day after stopping prednisone albuterol sulfate 90 mcg/actuation HFA aerosol inhaler 2 puff INHALATION Q6H PRN (Reason: Shortness Of Breath Or Wheezing) ondansetron 8 mg Tablet,Disintegrating 8 mg PO Q8H PRN (Reason: Nausea And Vomiting) Qty: 60 1RF levothyroxine 100 mcg tablet 100 mcg PO DAILY@1300 (DME) syringe with needle [BD Luer-Shiv Syringe] 3 mL 23 gauge x 1 1/2 syringe See Rx Instructions .ROUTE .MEDSUPPLY Qty: 2 0RF Rx Instructions: As directed to be used to inject hydrocortisone in case of emergency Discontinued sulfamethoxazole-trimethoprim [Bactrim DS] 800-160 mg tablet 1 tab PO BID Qty: 14 0RF Rx Instructions: END DATE: 01/13/25 Discharge Orders: Discharge Order (Routine); Ordered 01/12/25 Ordered By: Sotero Reyna Diet: Advance to usual diet Activity on Discharge: As tolerated Stand Alone Forms: Patient Portal Discharge page Print Language: Luxembourgish Care Plan Goals: Stay well hydrated Stop Bactrim Start Azithromycin and Ceftin for 1 more week Cream for athlete foot twice a day for 1-2 weeks To follow with Oncology infusion as planned Health Concerns: Pneumonia Kidney injury Plan of Treatment: Antibiotics Clotrimazole cream Assessment: as above
--- NOTE | 2025-01-12 12:06 | PC.NURSE ---
Pt noted to be tremulous in bilateral hands with unsteady gait. Vince MCALLISTER made aware. Physical therapy is not able to evaluate pt today given they are not here on Monday. Pt refuses to stay the night in hospital for PT evaluation tomorrow AM. Home VNA services in place. Spoke in detail with pt about safety at home and safety with driving. Pt is A&Ox4 upon assessment and per MD is of sound mind. Pt is medically cleared and DC home with services.
--- NOTE | 2025-01-14 12:22 | W.MHC.F2F ---
Service Date Service Date: 01/14/25 Encounter Date of encounter: 01/14/25 Reasons for Services Signs and symptoms assessed: physical deconditioning Reason for jail: medication management and teach disease management Reason for physical therapy: home safety and mobility and therapeutic exercises Homebound: Leaving the home is medically contraindicated at this time without the asist of a device and/or another person due th the listed conditions above and below. Reason homebound: unsteady gait / fall risk Certification: Based on the above findings, I certify that this patient is confined to the home and needs intermittent jail care, physical therapy and/or speech therapy, or continues to need occupational therapy. The patient is under my care, and I have initiated the establishment of the plan of care. The patient will be followed by a physician who will periodically review the plan of care. Time Spent With Patient Time: Total time managing care of this patient today ____ minutes.
== END 2025-01-12 12:11 | disposition home health service (06) | DRG 871 ==
LOC: HO.ED 21:37 → HO.EDOVER 22:32 → HO.S3 01-11 19:49
PROVIDERS: Physician Assistant; Admitting Provider Student in an Organized Health Care Education/Training Program; Emergency Provider Emergency Medicine; PCP Internal Medicine; Visit Provider Student in an Organized Health Care Education/Training Program
DX: A41.9 Sepsis, unspecified organism (principal); I21.A1 Myocardial infarction type 2; J18.9 Pneumonia, unspecified organism; N17.9 Acute kidney failure, unspecified; E27.40 Unspecified adrenocortical insufficiency; C67.9 Malignant neoplasm of bladder, unspecified; T36.8X5A Adverse effect of other systemic antibiotics, initial encounter; I12.9 Hypertensive chronic kidney disease with stage 1 through stage 4 chronic kidney disease, or unspecified chronic kidney disease; N18.30 Chronic kidney disease, stage 3 unspecified; E78.5 Hyperlipidemia, unspecified; E03.9 Hypothyroidism, unspecified; K21.9 Gastro-esophageal reflux disease without esophagitis; Z20.822 Contact with and (suspected) exposure to COVID-19; Z87.891 Personal history of nicotine dependence; Z79.890 Hormone replacement therapy; Z79.899 Other long term (current) drug therapy
CPT/HCPCS: 0241U; 36415; 71250; 74176; 80048; 80053; 80076; 81001; 83605; 83735; 83880; 84443; 84484; 85007; 85025; 85027; 87040; 87086; 93005; 99212; 99285; J0456; J0696; J1650; J1720; J7120

== ENCOUNTER → 2025-01-10 16:28 | Outpatient (BNV) | payer MEDICARE, OTHER, SELFPAY | PROVIDERS: Admitting Provider Student in an Organized Health Care Education/Training Program; Emergency Provider Emergency Medicine; PCP Internal Medicine; Visit Provider Internal Medicine Cardiovascular Disease | DX: R94.31 Abnormal electrocardiogram [ECG] [EKG] (principal); R79.89 Other specified abnormal findings of blood chemistry | CPT/HCPCS: 93010 ==

== ENCOUNTER 2025-01-10 22:31 | Outpatient (BNV) | payer MEDICARE, OTHER, SELFPAY | END 2025-01-11 | PROVIDERS: Admitting Provider Student in an Organized Health Care Education/Training Program; Emergency Provider Emergency Medicine; PCP Internal Medicine; Visit Provider Internal Medicine Cardiovascular Disease | DX: R05.9 Cough, unspecified (principal); E87.5 Hyperkalemia | CPT/HCPCS: 93010 ==

== ENCOUNTER → 2025-01-10 22:31 | Outpatient (BNV) | payer MEDICARE, OTHER, SELFPAY | PROVIDERS: Admitting Provider Student in an Organized Health Care Education/Training Program; Emergency Provider Emergency Medicine; PCP Internal Medicine; Visit Provider Student in an Organized Health Care Education/Training Program | DX: J18.9 Pneumonia, unspecified organism (principal); N17.9 Acute kidney failure, unspecified; N18.9 Chronic kidney disease, unspecified; A41.9 Sepsis, unspecified organism | CPT/HCPCS: 99223; 99233; 99239 ==

== ENCOUNTER → 2025-01-13 23:59 | Outpatient (BNV) | payer MEDICARE, OTHER, SELFPAY | PROVIDERS: Referring Provider Urology; Visit Provider Internal Medicine | DX: I12.9 Hypertensive chronic kidney disease with stage 1 through stage 4 chronic kidney disease, or unspecified chronic kidney disease (principal); N18.9 Chronic kidney disease, unspecified; E78.5 Hyperlipidemia, unspecified; K21.9 Gastro-esophageal reflux disease without esophagitis | CPT/HCPCS: G0179 ==

== ENCOUNTER 2025-01-22 16:12 | Emergency (ER) | payer MEDICARE, OTHER, SELFPAY ==
--- NOTE | ~2025-01-22 | XR_ITS ---
CLINICAL HISTORY: SOB 1 view chest x-ray Comparison: CR/SR - XR CHEST 2V - 12/27/24 11:28 EST Findings: Right chest wall port a catheter, tip of which is in the mid SVC. No consolidation or effusion. Normal size heart. No acute fracture. IMPRESSION: 1. No acute findings. This document has been electronically signed by: Natty Glover MD on 01/22/2025 17:47:08
--- NOTE | ~2025-01-22 | NM_ITS ---
CLINICAL HISTORY: Elevated D-dimer, dyspnea, Ca history, CKD Perfusion imaging only of the lungs. Comparison radiograph same day. Findings: There are multiple prominent perfusion defects bilaterally. In addition there are nonsegmental perfusion defects on the lateral projections most likely relating to soft tissue attenuation. Impression: Multiple prominent perfusion defects are identified bilaterally. This document has been electronically signed by: Drake Jacobs MD on 01/22/2025 20:15:13
--- NOTE | ~2025-01-22 | US_ITS ---
EXAMINATION: US LOWER EXTREMITY VEINS BILATERAL HISTORY: sob COMPARISON: There are no prior studies for comparison. TECHNIQUE: Duplex and color Doppler sonographic examination of the deep venous system of the bilateral lower extremities was performed. FINDINGS: The right common femoral, superficial femoral, and popliteal veins are patent demonstrating normal compressibility, spontaneous flow, and augmentation. There is a normal color and spectral Doppler waveform appearance of the visualized deep venous system above the knee. The posterior tibial and peroneal veins are patent. The left common femoral, superficial femoral, and popliteal veins are patent demonstrating normal compressibility, spontaneous flow, and augmentation. There is a normal color and spectral Doppler waveform appearance of the visualized deep venous system above the knee. The posterior tibial and peroneal veins are patent. US/US venous duplex LE BI IMPRESSION: No evidence of acute DVT in the bilateral lower extremities. Electronically signed by: Brady Andrade MD 01/23/2025 08:04 AM EDT
[2025-01-22 16:32] VITALS: BP 116/80; PULSE 113; RESP 16; TEMP 36.1; BMI 29.3
--- NOTE | 2025-01-22 16:44 | PC.NURSE ---
Patient presents from the oncology unit where he is receiving chemo for bladder ca. Patient was noted to be dyspneic on exertion and tachycardic. Labs obtained and ddimer noted to be greater 3000. Placed on potline monitor and stach noted. Patient denies any CP. Lungs essentially clear but decreased in the bases. Respirations even and non-labored. Abdomen soft, non-tender with positive bowel sounds. Right PCN patent and draining foul yellow urine with mucous. LE edema noted. Right chest POC patent and intact.
[2025-01-22 17:10] VITALS: BP 120/88; PULSE 117; RESP 22; O2SAT 98
--- NOTE | 2025-01-22 17:19 | ECG_ITS ---
Test Reason : SOB Blood Pressure : */* mmHG Vent. Rate : 107 BPM Atrial Rate : 107 BPM P-R Int : 146 ms QRS Dur : 78 ms QT Int : 336 ms P-R-T Axes : 19 4 57 degrees QTcB Int : 448 ms Sinus tachycardia Inferior infarct (cited on or before 11-Jan-2025) Abnormal ECG When compared with ECG of 11-Jan-2025 13:04, No significant change was found Referred By: Cm Gotti Electronically Signed By: LENORA LEMA
--- NOTE | 2025-01-22 17:21 | ED_ITS ---
HPI - SOB/Dyspnea General Chief Complaint: Dyspnea Stated Complaint: abormal labs,sob, from oncology Time Seen by Provider: 01/22/25 17:11 Source: patient Mode of arrival: ambulatory Limitations: no limitations History of Present Illness ED Provider: DR. Gotti HPI Narrative: A 64-year-old male with PMH significant for metastatic bladder cancer s/p TURP, on immunotherapy, secondary adrenal insufficiency, hypothyroidism, HTN, HLD, GERD, CKD was sent from Oncology Department after received his chemo therapy today for a concern of shortness of breath for the past 1-2 weeks which is mainly exertional, no history of PE/DVT, no history of recent travel, no lower extremity swelling or tenderness, patient was found to have very high D-dimer above 3000. Patient had a recent admission on 01/12/2025 and was sent home on Zithromax and cefuroxime for pneumonia. No lower extremity edema, no PND. Related Data Home Medications ?Medication ?Instructions ?Recorded ?Confirmed levothyroxine 100 mcg tablet 100 mcg PO DAILY@1300 10/18/24 01/22/25 albuterol sulfate 90 mcg/actuation 2 puff inhalation Q6H PRN 01/11/25 01/22/25 aerosol inhaler Shortness Of Breath Or Wheezing omeprazole 20 mg capsule,delayed 20 mg PO DAILY@0630 01/11/25 01/22/25 release prednisone 20 mg tablet See Rx Instructions .Route .COMPLEX 01/11/25 01/22/25 Previous Rx's ?Medication ?Instructions ?Recorded ondansetron 8 mg disintegrating 8 mg PO Q8H PRN Nausea And 07/22/24 tablet Vomiting #60 tabs syringe with needle 3 mL 23 gauge #2 ea 10/03/24 x 1 1/2 (BD Luer-Shiv Syringe) needle (disp) 18 G 18 gauge x 1 #50 ea 10/21/24 (BD Regular Bevel [place]) atorvastatin 20 mg tablet 20 mg PO BEDTIME 90 days #90 tabs 10/29/24 amlodipine 5 mg tablet 10 mg (2 x 5 mg) PO DAILY 12/10/24 azithromycin 500 mg tablet 500 mg PO DAILY 7 days #7 tabs 01/12/25 cefuroxime axetil 500 mg tablet 500 mg PO BID #14 tabs 01/12/25 clotrimazole 1 % topical cream 1 appl topical BID #45 grams 01/12/25 walker #1 ea 01/14/25 Allergies Allergy/AdvReac Type Severity Reaction Status Date / Time No Known Allergies Allergy Verified 01/22/25 16:38 [No Known Allergies*] Review of Systems 2 Review of Systems: All other systems are reviewed and are negative Constitutional: Reports as per HPI and Reports no additional constitutional complaints Eyes: Reports as per HPI and Reports no additional eye complaints Reports system reviewed and no additional complaints, except as documented Cardiovascular: Reports as per HPI and Reports no additional cardiovascular complaints Respiratory: Reports as per HPI and Reports no additional respiratory complaints Gastrointestinal: Reports as per HPI and Reports no additional gastrointestinal complaints Genitourinary: Reports no additional female genitourinary complaints Musculoskeletal: Reports no additional musculoskeletal complaints Skin/Breast: Reports system reviewed and no additional complaints, except as docu Psychiatric: Reports no additional psychiatric complaints Endocrine: Reports no additional endocrine complaints Hematologic/Lymphatic: Reports no additional hematologic/lymphatic complaints Allergic/Immunologic: Reports no additional allergic/immunologic complaints Reports system reviewed and no additional complaints, except as documented and Reports Abnormal speech present [facility] Past Medical History Medical History (Updated 01/22/25 @ 20:59 by Cm Gotti MD) Dry skin Dyspnea on exertion Left wrist pain Stiffness of left wrist joint Elevated serum creatinine Elevated blood pressure reading Hematuria Bladder mass History of immune checkpoint inhibitor therapy Hypophysitis Adrenal insufficiency Hypothyroidism Port-A-Cath in place (02/16/24) History of blood transfusion Bladder cancer Obesity (BMI 30-39.9) Pure hypercholesterolemia Hyperlipemia Carpal tunnel syndrome Surgical History Mass of left axilla (05/31/24) Hx of colonoscopy Hx of cystoscopy History of surgery History of hand surgery History of ankle surgery History of cholecystectomy Family History Family History Father Multiple sclerosis, primary progressive Mother No problems noted. Sister In good health Son In good health Daughter In good health Social History Social History Household Members: None Housing: House Are you a primary resident care spec to a significant other at home: No Do you presently have visiting nurse or other home services: Yes Alcohol intake: current Alcohol intake frequency: holidays/special occasions only Patient Tobacco Use Status: Former Tobacco user Tobacco use type: Cigarette e-Cigarette/Vaping Use: Never Used Second Hand Smoke Exposure: Yes Advance Directives: Yes Advance Directives on File: Yes Advance Directives Date on File: 03/19/24 service: Yes Current occupational status: employed 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 Blood pressure elevated. Tachycardia, tachypnea, Temperature normal. Oxygen saturation normal. Appearance: Alert. Oriented X3. No acute distress. Head: Normal external exam. Normocephalic. Atraumatic. No Cottrell signs noted. No raccoon eyes noted Eyes: PERRLA. EOMI. Conjunctiva and sclera normal. Eyelids normal. ENT: TM's Normal. Pharynx normal. Uvula midline. Moist mucous membranes. No trismus noted. No drooling noted. No muffled voice noted. Neck: Normal inspection. Neck supple. FROM. No adenopathy. Thyroid Normal. No meningeal signs. No neck mass noted. CVS: Normal heart rate and rhythm. Heart sound normal. No murmurs noted. Pulses normal throughout. Respiratory: No respiratory distress. Painless inspiration. Breath sounds normal. No wheezes/rales/rhonchi noted. Chest nontender. No accessory muscle usage noted or decreased air movement noted. Abdomen: Soft and nontender. Bowel sounds normal in all 4 quadrants. No distention noted. No organomegaly noted. No visible injury noted. Back: No CVA tenderness. Full range of motion noted. Skin: Skin warm and dry. Normal skin color. Normal skin turgor. No rashes/lesions/lacerations noted. Extremities: No lower extremity edema. Extremities exhibit normal range of motion. Extremities nontender. Neuro: Oriented X 3. Cranial nerve exam: II-XII are grossly intact No motor deficit. No sensory deficit. Reflexes normal. Course Reevaluation(s) Reevaluation #1: 64-year-old male with history of metastatic bladder cancer on chemotherapy presented with shortness of breath x2 weeks only with exertion, found to be slightly tachycardic, O2 sat is normal on room air 99%, patient had elevated troponin which was elevated and his previous hospitalization, CT was not indicated secondary to CKD V/Q scan is consistent with pulmonary embolism. Patient was given 1.5 mg/ kg of Lovenox, case discussed with Dr. Orozco. Case discussed with Dr. Segura who requested to get a consult from [facility]. Case discussed with Dr. Argueta from [facility]. Signed out to Dr. Perez Time: 20:47 Medications Administered Discontinued Medications Generic Name Dose Route Start Last Admin Trade Name Freq PRN Reason Stop Dose Admin Enoxaparin Sodium 160 mg 01/22/25 17:33 01/22/25 20:22 Enoxaparin Sodium 80 Mg/0.8 Ml Syringe 1.5 mg/kg (160 mg) 01/22/25 17:34 160 mg SUBCUT Administration ONCE ONE Medical Decision Making Differential Diagnosis Differential Diagnoses: The differential diagnosis associated with the presentation includes (Pneumonia, pneumothorax, pleural effusion, pulmonary embolism, ACS, electrolyte derangement, severe anemia, hypoxia.) Admission/Observation Consideration of admission/observation: Escalation of care including admission/observation considered Consult Healthcare Provider Management of the patient was discussed with: Hospitalist (Dr. Segura) and Outside Installation Machinist (Dr. Orozco) Lab Data MDM Lab Attestation statement: I reviewed the patient's lab results. 01/22/25 17:51 01/22/25 17:51 Labs: Lab Results 01/22/25 Range/Units 17:51 WBC 6.9 (4.8-10.8) X10*3/uL RBC 3.65 L (4.60-5.80) X10*6/uL Hgb 12.1 L (14.0-18.0) g/dl Hct 33.1 L (42.0-52.0) % MCV 90.7 (80.0-98.0) fL MCH 33.2 H (27.0-33.0) pg MCHC 36.6 H (31.0-36.0) g/dl RDW 18.0 H (11.0-16.0) % Plt Count 81 L (160-400) X10*3/uL MPV 10.1 (9.4-12.4) fL Immature Gran % (Auto) 4.4 H (0.0-0.4) % Neut % (Auto) 84.3 H (45-73) % Lymph % (Auto) 6.6 L (20-40) % Carlton % (Auto) 4.4 (2-11) % Eos % (Auto) 0.0 (0-4) % Baso % (Auto) 0.3 (0-2) % Lymph # (Auto) 0.5 L (1.2-4.9) X10*3/uL Carlton # (Auto) 0.3 (0.1-1.2) X10*3/uL Eos # (Auto) 0.0 (0.0-0.4) X10*3/uL Baso # (Auto) 0.0 (0.0-0.2) X10*3/uL Abs Immat Gran (auto) 0.30 H (0.00-0.03) X10*3/uL Absolute Neuts (auto) 5.8 (2.0-8.3) x10*3/uL Absolute Nucleated RBC 0.060 H (0.0-0.012) X10*3/uL Nucleated RBC % (auto) 0.9 H (0.0-0.2) /100WBC PT 10.1 L (10.9-12.4) SEC INR 0.9 (0.9-1.1) D-Dimer High Sensitivty 3104 NG/ML Sodium 136 (135-145) mmol/L Potassium 3.9 (3.3-5.1) mmol/L Chloride 106 (96-108) mmol/L Carbon Dioxide 22 (22-29) mmol/L Anion Gap 12 (12-20) BUN 50 H (9-16) mg/dL Creatinine 1.59 H (0.5-1.4) mg/dL Estim Creat Clear Calc 58.6 Estimated GFR 44 Random Glucose 92 (60-115) mg/dL Calcium 8.7 (8.4-10.2) mg/dL Total Bilirubin 1.2 H (0.0-1.0) mg/dL Direct Bilirubin 0.4 (0.0-0.5) mg/dL AST 70 H (5-37) U/L ALT 110 H (0-40) U/L Alkaline Phosphatase 136 H (39-117) U/L Troponin I High Sens 294.1 H* D (<3.5-35.0) ng/L B-Natriuretic Peptide 177 H (<100) pg/mL Total Protein 5.8 L (6.5-8.0) g/dL Albumin 3.4 L (3.5-5.0) g/dL Lipase 138 H (8-78) U/L Influenza Type A (PCR) NEGATIVE (Negative) Influenza Type B (PCR) NEGATIVE (Negative) RSV RNA Qual (PCR) NEGATIVE (Negative) SARS-CoV-2 RNA (RT-PCR) NEGATIVE (Negative) Independent Interpretation I performed an independent interpretation of an: Plain X-Ray (Chest: No acute findings.) Interpretation: V/Q scan:Multiple prominent perfusion defects are identified bilaterally. . Radiology Impression Discussion of test interpretation with radiology: I have reviewed the radiologist's reading. Critical Care Time Critical Care Time Critical Care Time: Yes Total Critical Care Time: 60 Attestation: The patient was critically ill with a high probability of imminent or life- threatening deterioration. I spent greater than 30 minutes of discontinuous time evaluating the patient, delivering critical care at the bedside, discussing evaluating data with consultants. Critical care time does not include time spent performing separately billable procedures or teaching. Time spent performing critical care was 60 minutes. Discharge Plan Discharge Clinical Impression: Pulmonary air embolism Prescriptions: No Action (DME) needle (disp) 18 G [BD Regular Bevel [place]] 18 gauge x 1 needle See Rx Instructions .Route Qty: 50 0RF Rx Instructions: As directed to draw hydrocortisone in case of emergency atorvastatin 20 mg tablet 20 mg PO BEDTIME 90 Days Qty: 90 1RF amlodipine 5 mg tablet 10 mg PO DAILY 1RF (DME) walker See Rx Instructions .Route .MEDSUPPLY Qty: 1 0RF Rx Instructions: As directed omeprazole 20 mg capsule,delayed release(DR/EC) 20 mg PO DAILY@0630 prednisone 20 mg tablet See Rx Instructions .ROUTE .COMPLEX Rx Instructions: 40 mg orally BID, SWAP TO 30 MG BID x10 DAYS ON: 01/13/25;Take 100 mg daily for 10 days followed by 80 mg daily for 10 days followed by 60 mg daily for 10 days followed by 40 mg daily for 2 weeks followed by 30 mg daily for 10 days followed by 20 mg daily for 10 days followed by 10 mg daily for 10 days and then stopped. Resume hydrocortisone twice a day after stopping prednisone albuterol sulfate 90 mcg/actuation HFA aerosol inhaler 2 puff INHALATION Q6H PRN (Reason: Shortness Of Breath Or Wheezing) clotrimazole 1 % Cream 1 appl topical BID Qty: 45 1RF Protocol: Apply to: Apply to: Feet and between toes bilaterally Rx Instructions: Feet and between toes bilaterally azithromycin 500 mg tablet 500 mg PO DAILY 7 Days Qty: 7 0RF cefuroxime axetil 500 mg tablet 500 mg PO BID Qty: 14 0RF ondansetron 8 mg Tablet,Disintegrating 8 mg PO Q8H PRN (Reason: Nausea And Vomiting) Qty: 60 1RF levothyroxine 100 mcg tablet 100 mcg PO DAILY@1300 (DME) syringe with needle [BD Luer-Shiv Syringe] 3 mL 23 gauge x 1 1/2 syringe See Rx Instructions .ROUTE .MEDSUPPLY Qty: 2 0RF Rx Instructions: As directed to be used to inject hydrocortisone in case of emergency Print Language: Armenian
[2025-01-22 17:57] LABS: MANUAL DIFF FLAG NO
[2025-01-22 17:59] LABS: Basophils Percent Auto 0.3 % (0-2); Hematocrit 33.1 % (42.0-52.0); Hemoglobin 12.1 g/dl (14.0-18.0); Imm Gran Pct Auto 4.4 % (0.0-0.4); Lymphocytes Absolute Auto 0.5 X10*3/uL (1.2-4.9); Lymphocytes Percent Auto 6.6 % (20-40); Mean Corpuscular HGB Conc 36.6 g/dl (31.0-36.0); Mean Corpuscular Hemoglobin 33.2 pg (27.0-33.0); Mean Corpuscular Volume 90.7 fL (80.0-98.0); Mean Platelet Volume 10.1 fL (9.4-12.4); Monocytes Absolute Auto 0.3 X10*3/uL (0.1-1.2); Monocytes Percent Auto 4.4 % (2-11); NRBC Pct Auto 0.9 /100WBC (0.0-0.2); Neutrophils Absolute Auto 5.8 x10*3/uL (2.0-8.3); Neutrophils Percent Auto 84.3 % (45-73); Red Blood Count 3.65 X10*6/uL (4.60-5.80); White Blood Count 6.9 X10*3/uL (4.8-10.8)
--- OUTSIDE RECORDS SUMMARY | 2025-01-22 18:10 | XMS_ITS | Referral Summary ---
Author Organization [facility] Address [address] [place] [address] Care Team Providers Care Electronic Warfare Officer Name Role Phone Morris Rizzo Primary [...] Cessation:Counseling Given: Not Answered Comments:On and off 8100-1000 smoking, at most 1 PPD Alcohol Use [...] Not on file Procedures * Due to [place] [employer] law, this organization might not be sharing negative HIV tests. Procedure Name Priority Date/Time Associated Diagnosis Comments AMB EXTERNAL CT CHEST, OUTSI DE RESULT 01/23/2024 from Last 3 Months or Most Recently Relevant to Health Maintenance Results * Due to [place] [employer] law, this organization might not be sharing negative HIV tests. 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
--- OUTSIDE RECORDS SUMMARY | 2025-01-22 18:10 | XMS_ITS | Patient Health Record ---
Author Organization [facility] Address [address] [place] [address] Care Team Providers Care Iron Bender Name Role Phone So MCALLISTER, Primary Care Provider Unavaila Jose Doty Unavailable [phone] Eamon MCALLISTER, Zamzam Unavailable Unavailable Reason For [...] Status Risk Notes Problem Colon cancer screening (675094746) Colon cancer screening (Z12.11) Active confirmed Problem [id number] Epigastric abdominal pain (R10.13) Active confirmed Problem [id number] Encounter for screening for malignant neoplasm of colon (Z12.11) Active confirmed Problem [id number] Preprocedural examination (Z01.818) Active confirmed Encounters Encounter Location Date Provider Diagnosis [facility] [address] [place] [address] 04/23/2024 Jose Arevalo Colon cancer screening Z12.11 [facility] [address] [place] [address] 05/27/2024 Jose Arevalo [facility] [address] [place] [address] 05/30/2024 Jose Arevalo Assessments Encounter Date Diagnosis [...] Date MEDICARE OF [place] [address] [place] [address] [phone] [id number] JOSE CUBA Self - patient is the insured Gertrude [address] [place] [address] [id number] JOSE CUBA Self - patient is the insured Medical (General) History Medical History History ICD Code Denies NC,DM,CVA,Lung disease,renal dise ase Hyperlipidemia Screening colonoscopy in Mar with Dr. Johansen revealed only hyperplastic polyps. EGD in 08/2017-small HH, normal duodenal and gastric biopsies Surgical History Surgery Date(Month/Year) Lap cholecystectomy--acalculous cholecys titis-Dr. Knutson 05/2017 Finger- infection drained 1969
--- OUTSIDE RECORDS SUMMARY | 2025-01-22 18:10 | XMS_ITS | Clinical Summary ---
Author Organization [facility] Address [address] [place] [address] Care Team Providers Care Corporate Technical Recruiter Name Role Phone Morris Rizzo Primary Care Provider [phone] Allergies No known active allergies Medications atorvastatin [...] Cessation:Counseling Given: Not Answered Comments:On and off 7704-5348 smoking, at most 1 PPD Alcohol Use [...] 2024 08/03/2023, 08/10/2022, 10/06/2021, Additional history exists Alcohol/Substance Use Screening 10/23/2024 Depression Screening and Follow-Up 10/23/2024 Fall Risk Screening 10/23/2024 Health Care Proxy Review 10/23/2024 Social Drivers of Health Yecenia ual Screening 10/23/2024 CT Lung Cancer Screening (Baseline) 01/22/2025 01/23/2024 Influenza Vaccine (Season Ended) 2025 08/03/2023, 08/10/2022, 10/06/2021, Additional history exists RSV Vaccine (60+ years old a nd patients) Completed 08/03/2023 Procedures * Due to [place] [employer] law, this organization might not be sharing negative HIV tests. Procedure Name Priority Date/Time Associated Diagnosis Comments AMB EXTERNAL CT CHEST, OUTSI DE RESULT 01/23/2024 from Last 3 Months or Most Recently Relevant to Health Maintenance Results * Due to [place] [employer] law, this organization might not be sharing negative HIV tests. 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
--- OUTSIDE RECORDS SUMMARY | 2025-01-22 18:10 | XMS_ITS ---
Author Organization [facility] Address [address] [place] [address] Care Team Providers Care Vault Installer Name Role Phone So MCALLISTER, Primary Care Provider Unavaila Jose Doty Unavailable [phone] Eamon MCALLISTER, Zamzam Lindsay Unavailable REASON FOR VISIT colon screening Encounters Encounter Location Date Provider Diagnosis [facility] [address] [facility] [place] [id number] 06/03/2024 Jose Arevalo Plan Of Treatment No Information Progress Notes * JOSE CUBADOB:1960 (64 yo M)Acc No.[id number]:06/03/2024 COLON WITH MAC Patient:?JOSE CUBA Provider:?Jose Arevalo MD :1960???Age:63 Y???Sex:Male Curt e:06/03/2024 Address:[address] [place] [address] [address] [facility] Pcp:Morris Rizzo MD Subjective: * Chief Complaints: [...] MD Date:? 024 Generated for Sade cerda/Todd/eTransmitting on:?01/22/2025 06:10 PM EDT
--- OUTSIDE RECORDS SUMMARY | 2025-01-22 18:10 | XMS_ITS ---
Author Organization [facility] Address [address] [place] [address] Care Team Providers Care Glass Scullion Name Role Phone So MCALLISTER, Primary Care Provider Unavaila Jose Doty Unavailable [phone] Eamon MCALLISTER, Zamzam Lindsay Unavailable REASON FOR VISIT CANCEL PROCEDURE Encounters Encounter Location Date Provider Diagnosis [facility] [address] [place] [address] 05/30/2024 Jose Arevalo Plan Of Treatment No Information Progress Notes * BEREKET JOSEDOB:1960 (63 yo M)Acc No.[id number]:05/30/2024 Patient:?JOSE CUBA :1960???Age:63 Y???Sex:Male Address:[address] [place] [address] [place], [address] * true * Date:? Generated for Gigii zaida/Todd/eTransmitting on:?01/22/2025 06:09 PM EDT
--- OUTSIDE RECORDS SUMMARY | 2025-01-22 18:10 | XMS_ITS | Encounter Summary ---
Author Organization [facility] Address [address] [place] [address] Care Team Providers Care Machine Stripper Cutter Name Role Phone Morris Rizzo Primary Care Provider [phone] Encounter Details Date Type Department Care Team (Late st Contact Info) Description 04/15/2024 Orders Only [facility] Building Mammography [address] [facility], 5th [place] [address] Shola Arroyo MD [address] [place] [address] Social History Tobacco Use Types Packs/Day Years [...] on filedocumented in this encounter Care Teams Machine Stripper Cutter Relationship Specialty Start Date End Date Morris Rizzo [address] [place] [address] [place] [address] PCP - General Internal Medicine 01/09/24 documented as of this encounter
--- OUTSIDE RECORDS SUMMARY | 2025-01-22 18:10 | XMS_ITS ---
Author Organization [facility] Address [address] [place] [address] Care Team Providers Care Body Masker Name Role Phone So MCALLISTER, Primary Care Provider Unavaila Jose Doty Unavailable [phone] Eamon MCALLISTER, Zamzam Lindsay Unavailable REASON FOR VISIT colonoscopy Encounters Encounter Location Date Provider Diagnosis [facility] [address] [place] [phone] 05/27/2024 Jose Arevalo Plan Of Treatment No Information Progress Notes * SEANJOSE ESTESDOB:1960 (63 yo M)Acc No.[id number]:05/27/2024 Patient:?JOSE CUBA :1960???Age:63 Y???Sex:Male Address:[address] [place] [address] [address] [place], [address] * true * Date:? Generated for Gigii zaida/Todd/eTransmitting on:?01/22/2025 06:09 PM EDT
--- OUTSIDE RECORDS SUMMARY | 2025-01-22 18:10 | XMS_ITS | Clinical Summary ---
Author Organization [facility] Address [address] [place] [address] Phone Care Team Providers Care Marketing Support Specialist Name Role Phone Morris Rizzo MD Primary Care Provider [phone] Social History Tobacco Use Types Packs/Day Years [...] 2024 Influenza Vaccine (#1) 2024 RSV Immunization Adult Patie nts (1 - 1-dose 75+ series) 2033 HIB [...] age to complete this topic Care Teams Marketing Support Specialist Relationship Specialty Start Date End Date Morris Rizzo MD [address] [place] [address] [address] [place] [address] PCP - General Internal Medicine 05/27/22
--- OUTSIDE RECORDS SUMMARY | 2025-01-22 18:10 | XMS_ITS ---
Author Organization [facility] Address [address] [place] [address] Care Team Providers Care Mold Capper Helper Name Role Phone Morris Rizzo Primary Care Provider [phone] Active Problems Problem Noted Date Diagnosed Date Hyperkalemia 05/30/2024 Malignant neoplasm of overlapping sites of bladd er 03/04/2024 Other hydronephrosis 03/04/2024 Current Treatment and Therapy Plans No current plan information found. Past Treatment and Therapy Plans No past plan information found. Lifetime Dose Tracking * Chemical Lifetime Dose Automatic Entry Manual Entr y TotalDLP 1,042 mGy 1,042 mGy 0 mGy LDVN470 13.5 mSv 13.5 mSv 0 mSv CTDIvol Max 11.8 mGy 11.8 mGy 0 mGy CTDIvol Min 7.3 mGy 7.3 mGy 0 mGy
[2025-01-22 18:13] LABS: Alanine Aminotransferase 110 U/L (0-40); Albumin Level 3.4 g/dL (3.5-5.0); Alkaline Phosphatase 136 U/L (39-117); Anion Gap 12 (12-20); Aspartate Amino Transferase 70 U/L (5-37); Bilirubin Direct 0.4 mg/dL (0.0-0.5); Bilirubin Total 1.2 mg/dL (0.0-1.0); Blood Urea Nitrogen 50 mg/dL (9-16); Calcium 8.7 mg/dL (8.4-10.2); Carbon Dioxide 22 mmol/L (22-29); Chloride 106 mmol/L (96-108); Creatinine Clr Calc Pharmacy 58.6; Estimated Glomerular Filt Rate 44; Glucose Random 92 mg/dL (60-115); INTERNATIONAL NORM RATIO 0.9 (0.9-1.1); Lipase 138 U/L (8-78); Potassium 3.9 mmol/L (3.3-5.1); Prothrombin Time 10.1 SEC (10.9-12.4); Sodium 136 mmol/L (135-145); Total Protein 5.8 g/dL (6.5-8.0)
[2025-01-22 18:15] LABS: D Dimer High Sensitivity 3104 NG/ML
[2025-01-22 18:18] LABS: B Type Natriuretic Peptide 177 pg/mL (<100)
[2025-01-22 18:22] LABS: Troponin-I High Sensitivity 294.1 ng/L (<3.5-35.0)
[2025-01-22 18:32] LABS: Platelet Count 81 X10*3/uL (160-400)
[2025-01-22 18:39] LABS: Influenza A PCR NEGATIVE (Negative); Influenza B PCR NEGATIVE (Negative); Resp Syncy Virus RNA Qual PCR NEGATIVE (Negative); SARS COV2 PCR INHOUSE NEGATIVE (Negative)
--- NOTE | 2025-01-22 19:02 | PC.NURSE ---
Sent to nuclear medicine
[2025-01-22 20:00] VITALS: BP 127/91; PULSE 99; RESP 28; O2SAT 98
[2025-01-22] MEDS: Enoxaparin Sodium 80 MG/0.8 ML SYRINGE 160 MG SUBCUT (20:22)
[2025-01-22 23:29] VITALS: BP 127/91; PULSE 99; RESP 28; TEMP 36.1; O2SAT 98
== END 2025-01-22 23:32 | disposition short-term general hospital (02) ==
PROVIDERS: Emergency Provider Emergency Medicine
DX: R06.02 Shortness of breath (principal); R79.89 Other specified abnormal findings of blood chemistry; I10 Essential (primary) hypertension; R60.0 Localized edema; R10.2 Pelvic and perineal pain; R00.0 Tachycardia, unspecified; T79.0XXA Air embolism (traumatic), initial encounter; X58.XXXA Exposure to other specified factors, initial encounter; Y93.9 Activity, unspecified; Y92.9 Unspecified place or not applicable; Y99.8 Other external cause status; Z03.818 Encounter for observation for suspected exposure to other biological agents ruled out; Z79.899 Other long term (current) drug therapy; Z87.891 Personal history of nicotine dependence
CPT/HCPCS: 0241U; 36415; 71045; 78580; 80048; 80076; 83690; 83880; 84484; 85025; 85379; 85610; 93005; 93970; 96372; 99285; A9540; J1650

== ENCOUNTER → 2025-01-22 17:19 | Outpatient (BNV) | payer MEDICARE, OTHER, SELFPAY | PROVIDERS: Emergency Provider Emergency Medicine; Visit Provider Radiology Diagnostic Radiology | DX: R06.02 Shortness of breath (principal) | CPT/HCPCS: 93970 ==

== ENCOUNTER → 2025-01-22 17:19 | Outpatient (BNV) | payer MEDICARE, OTHER, SELFPAY | PROVIDERS: Emergency Provider Emergency Medicine; Visit Provider Internal Medicine | DX: I25.2 Old myocardial infarction (principal); R00.0 Tachycardia, unspecified | CPT/HCPCS: 93010 ==

== ENCOUNTER 2025-03-18 15:55 | Outpatient (REF) | payer MEDICARE, OTHER, SELFPAY ==
--- NOTE | ~2025-03-18 | CT_ITS ---
CLINICAL HISTORY: Follow-up pneumonia, rule out Mets CT chest without contrast Comparison: CR - XR CHEST 1V - 01/22/25 17:[address]/SR - CT CHEST WO IV CON - 01/10/25 14:[address]/OT/PT/SR - PET CT FUSION SKULL TO THIGH - 07/30/24 11:[address]/OH/SR - CT CHEST WO IV CON - 01/23/24 14:38 EDT Findings: No mediastinal mass or lymphadenopathy. Right chest wall central venous catheter with the tip terminating at the cavoatrial junction. No cardiomegaly. Mild calcified coronary artery disease. Stable dilation of the ascending thoracic aorta, measuring 4.2 cm and the descending thoracic aorta, measuring up to 3.2 cm. The aortic arch measures the upper limit of normal size, measuring 3.4 cm. Mild calcified atherosclerotic disease. Interval near-complete resolution of the previously seen ground-glass opacity in the right lung; trace residual ground-glass opacity. Mild paraseptal and centrilobular emphysema. Mild increased subpleural reticulation. Mild amount of subsegmental atelectasis versus linear scarring. Pulmonary nodules measure up to 4 mm stable since 01/23/24. No pneumothorax or pleural effusion. Trace height loss of T5 with a fracture line near the superior endplate new. No retropulsion of fracture fragments or involvement of the posterior elements. No acute pathology in the imaged portion of the upper abdomen. Status post cholecystectomy. Impression: Interval near-complete resolution of the previously seen ground-glass opacity in the right lung, likely infectious/inflammatory. No evidence of metastatic disease. New compression fracture of T5 with trace height loss. No retropulsion of fracture fragments or involvement of the posterior elements. This document has been electronically signed by: Mary Lockett MD on 03/19/2025 21:47:53
--- OUTSIDE RECORDS SUMMARY | 2025-03-18 15:58 | XMS_ITS ---
Author Organization [facility] Address [address] [place] [address] Care Team Providers Care Clinical Rn Name Role Phone So MCALLISTER, Primary Care Provider Unavaila Jose Doty Unavailable [phone] Eamno MCALLISTER, Zamzam Lindsay Unavailable REASON FOR VISIT colonoscopy Encounters Encounter Location Date Provider Diagnosis [facility] [address] [place] [address] 05/27/2024 Jose Arevalo Plan Of Treatment No Information Progress Notes * SEANJOSE ESTESDOB:1960 (63 yo M)Acc No.[id number]:05/27/2024 Patient:?JOSE CUBA :1960???Age:63 Y???Sex:Male Address:[address] [place] [address] [address] [place], [address] * true * Date:? Generated for Gigii zaida/Todd/eTransmitting on:?03/18/2025 03:57 PM EDT
== END 2025-03-18 15:56 | disposition home or self-care (01) ==
LOC: HO.CT 15:55
PROVIDERS: Visit Provider Internal Medicine
DX: C67.9 Malignant neoplasm of bladder, unspecified (principal)
CPT/HCPCS: 71250

== ENCOUNTER → 2025-03-18 15:58 | Outpatient (BNV) | payer MEDICARE, OTHER, SELFPAY | PROVIDERS: Visit Provider Radiology Diagnostic Radiology | DX: J18.9 Pneumonia, unspecified organism (principal) | CPT/HCPCS: 71250 ==

== ENCOUNTER 2025-03-25 08:07 | Outpatient (AMB) | payer MEDICARE, OTHER, SELFPAY ==
--- NOTE | 2025-03-25 08:10 | A.OFFVIS_ITS ---
Vital Signs 03/25/25 08:11 Height 6 ft 2 in Weight 245 lb 13.047 oz BMI 31.6 BP 130/76 Blood Pressure Location Lt brachial Position Sitting Pulse 117 H Pulse Source Pulse Oximeter Pulse Oximetry (%) 97 Oxygen Delivery Method Room Air Intake Visit Reasons: Abnormal thyroid function Intake Note: Patient present today for abnormal thyroid function. Manufacturing Inspector Required: No Accompanied by: Self / Same As Patient Allergies No Known Allergies [No Known Allergies*] Allergy (Verified 03/25/25 08:17) Medication List - Last Reconciled 03/25/25 by Dilcia Brady MD albuterol sulfate 90 mcg/actuation 2 puffs inhalation Q6H PRN amlodipine 10 mg (2 x 5 mg) PO DAILY apixaban (Eliquis) 2.5 mg PO BID atorvastatin 20 mg PO BEDTIME 90 days cefuroxime axetil 500 mg PO BID clotrimazole 1% 1 appl See Protocol topical BID levothyroxine 100 mcg PO DAILY needle (disp) 18 G (BD Regular Bevel Climax) As directed to draw hydrocortisone in case of emergency omeprazole 20 mg PO DAILY@0630 ondansetron 8 mg PO Q8H PRN prednisone 40 mg orally BID, SWAP TO 30 MG BID x10 DAYS ON: 01/13/25;Take 100 mg daily for 10 days followed by 80 mg daily for 10 days followed by 60 mg daily for 10 days followed by 40 mg daily for 2 weeks followed by 30 mg daily for 10 days followed by 20 mg daily for 10 days followed by 10 mg daily for 10 days and then stopped. Resume hydrocortisone twice a day after stopping prednisone syringe with needle (BD Luer-Shiv Syringe) As directed to be used to inject hydrocortisone in case of emergency [walker As directed] [walker with wheels As directed] HPI Comments Details: 63 years male with past medical history significant for metastatic bladder cancer on immunotherapy with pembrolizumab here today for follow up of 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 With regards to his bladder cancer was diagnosed in November 2023, underwent TURBT on 12/12/2023 . Biopsy revealed invasive urothelial carcinoma, high-grade, tumor invades muscularis propria, lymphatic vessel invasion is identified. He started neoadjuvant chemotherapy with cisplatin 70 mg/m2/gemcitabine 1000mg/m2 D 1 and 8 q 21 days from 02/27/2024 until 04/2024. He was diagnosed with metastatic disease in 06/11/2024 based on PET-CT. Patient underwent ultrasound-guided biopsy of left gluteal mass which revealed metastatic poorly differentiated carcinoma. He also underwent excision of left axillary mass on 05/31/2024, pathology revealed poorly differentiated carcinoma compatible with metastatic urothelial carcinoma. Patient started systemic therapy with Enfortumab vedotin with pembrolizumab administered every 21 days in 06/11/2024. He is continuing on this as of 10/03/24 Pembrolizumab is for now. Resumed enfortumab vedotin since 10/2024. Hypothyroidism His labs when showed normal TSH from 06/10/2024 with subsequently developing low TSH levels on 06/28/2024 at 0.21. Had further suppression of TSH with labs going down to 0.02 on 07/19/2024. Free T4 level was normal. He subsequently developed elevated TSH of 18.86 on 08/16/2024 and most recently blood work done on 08/19/2024 showed TSH of 29.74.. This pattern is consistent with thyroiditis seen in the setting of immune checkpoint inhibitor therapies which are known to cause endocrinopathies. In terms of thyroid dysfunction, PD 1 inhibitor such as pembrolizumab are the ones most commonly involve in causing thyroid dysfunction. Generally immune checkpoint inhibitor therapy does not need to be interrupted or discontinued. And this pattern is very commonly seen were patients develop thyroiditis with low TSH from 1-6 weeks post starting therapy subsequently followed by high TSH around 8 weeks of therapy. No compressive symptoms. No family history of thyroid disease or thyroid cancer. He denies biotin use. 08/19/2024: Started on levothyroxine 50 mcg daily. 08/11/2024: TSH 29.74 08/24/2024 TSH 51.52 08/26/2024: TSH 30.21 09/06/2024: TSH 46.98, Oncology team increased levothyroxine to 75 mcg daily 09/13/2024 TSH 56.20, free T4 0.61 09/23/2024: TSH 47.81, free T4 0.58 09/27/2024: TSH 45.96, TPO antibodies elevated at 85 Bowel movements are regular, no temperature intolerance , weight went down to 254 lbs in Aug 2024 from 260 lbs in Jul 2024 and npw back up at 263 lbs in Sep 2024. No skin or hair changes. 10/04/24: Levothyroxine increased to 100 mcg daily taking it at 2 AM in the morning , goes back to sleep after Labs 11/18/2024 show TSH has significantly improved now down to 4.32 with normal free T4 of 0.97. Interval history 01/10/25: TSH 0.65 Patient continues on 100 mcg of levothyroxine. 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 Denies any steroid use after that. Patient denied any lightheadeness, dizziness ,vomiting at the time of these labs, only mild nausea and some weight loss noted . 09/17/24 cortisol came back as <1, ACTH 7 , normal sodium and potassium , 09/18/24: Started hydrocortisone 20 mg in the morning and 10 mg in the after noon at 1 pm 09/23/24: renin 0.71 , aldosterone pending still Currently as of 10/03/24 : denied any lightheadeness, dizziness ,vomiting at the time of these labs, only mild nausea , mild fatigue , denies any headaches or visual symptoms such as diplopia. Bowel movements are regular. 10/03/24 : hydrocortisone chnaged to 20 mg in the morning and 5 mg in the afternoon at 2 pm 10/18/2024: Hydrocortisone changed to 10 mg in the morning and 5 mg in the afternoon at 14:00. Interval history 11/19/24 Unfortunately in September he was noted to have elevation in creatinine of up to 3.8 from a baseline of 2 consistent with GORDON with a diagnosis of interstitial nephritis in the setting of immune checkpoint inhibitor therapy. He was started on prednisone 100 mg daily, and most recently on 10/29/1024 Oncology titrated it down to 80 mg daily. Given he was started on high-dose steroids for nephritis, hydrocortisone has been held for now. Pembrolizumab was also held. has medical alert bracelet Denies any nausea, vomiting, lightheadedness, dizziness Has not required any emergency dosing or stress dosing Interval history 03/25/2025 Just got out of rehab 2 weeks ago after developing PE in January 2025 He was started back on prednisone 100 mg taper on 10/21/24 for the recurrent nephritis. He thinks he is currently down to prednisone 30 mg daily. Pembrolizumab will be held for now. Resumed enfortumab vedotin since 10/2024. Physical exam General: sitting comfortably in no acute distress HEENT: normocephalic/atraumatic, moist oral mucosa Neck: supple, symmetrical, no thyromegaly Cardiac: normal heart sounds Pulm: normal breath sounds B/L, no added breath sounds Abd: not distended, no tenderness Extremities: no edema, no signs of myxedema Laboratory Tests 06/10/24 06/28/24 07/05/24 09:29 15:23 13:25 TSH 1.31 0.21 L 0.04 L Free T4 Total T3 07/08/24 07/19/24 07/26/24 10:22 13:23 14:41 TSH 0.02 L 0.02 L 0.25 L Free T4 1.41 Total T3 129 08/16/24 08/19/24 13:33 10:40 TSH 18.86 H 29.74 H Free T4 Total T3 Laboratory Tests 06/10/24 06/28/24 07/05/24 09:29 15:23 13:25 Sodium Potassium Creatinine Estimated GFR Renin TSH 1.31 0.21 L 0.04 L Free T4 Total T3 DHEA Sulfate Random Cortisol ACTH 07/08/24 07/19/24 07/26/24 10:22 13:23 14:41 Sodium Potassium Creatinine Estimated GFR Renin TSH 0.02 L 0.02 L 0.25 L Free T4 1.41 Total T3 129 DHEA Sulfate Random Cortisol ACTH 08/16/24 08/19/24 08/24/24 13:33 10:40 08:02 Sodium Potassium Creatinine Estimated GFR Renin TSH 18.86 H 29.74 H 51.52 H Free T4 Total T3 DHEA Sulfate Random Cortisol ACTH 08/26/24 09/06/24 09/13/24 11:22 12:53 12:10 Sodium Potassium Creatinine Estimated GFR Renin TSH 30.21 H 46.98 H 56.20 H Free T4 0.61 L Total T3 DHEA Sulfate Random Cortisol ACTH 09/17/24 09/23/24 09/27/24 07:00 12:50 14:42 Sodium 142 140 Potassium 4.4 4.8 Creatinine 2.08 H 2.03 H Estimated GFR 32 33 Renin 0.71 TSH 47.81 H 45.96 H Free T4 0.58 L Total T3 DHEA Sulfate 49 Random Cortisol < 1.0 ACTH 7 09/30/24 09:25 Sodium Potassium Creatinine Estimated GFR Renin TSH Free T4 Total T3 DHEA Sulfate Random Cortisol 13.1 ACTH Laboratory Tests 09/23/24 12:50 Thyroid Peroxidase Ab 86 (H) Laboratory Tests 10/04/24 10/17/24 10/18/24 07:16 07:39 07:19 Sodium 141 137 Potassium 4.3 4.2 Chloride 105 105 Carbon Dioxide 26 25 Creatinine 2.30 H 3.40 H Estimated GFR 29 18 TSH 59.59 H 58.14 H Free T4 0.60 L 0.73 FSH 25.7 H Luteinizing Hormone 6.7 Prolactin 13.3 Total Testosterone 350 Fr Testosterone Dialys 45.5 Sex Hormone Bind Glob 39 Human Growth Hormone 0.5 Somatomedin-C 162 Somato-C Z-Score Male 0.7 Laboratory Tests 06/10/24 06/28/24 07/05/24 09:29 15:23 13:25 Sodium Creatinine Estimated GFR TSH 1.31 0.21 L 0.04 L Free T4 Total T3 07/08/24 07/19/24 07/26/24 10:22 13:23 14:41 Sodium Creatinine Estimated GFR TSH 0.02 L 0.02 L 0.25 L Free T4 1.41 Total T3 129 08/16/24 08/19/24 10/28/24 13:33 10:40 06:43 Sodium Creatinine Estimated GFR TSH 18.86 H 29.74 H 12.55 H Free T4 Total T3 11/01/24 11/08/24 11/18/24 11:06 09:23 07:49 Sodium 141 Creatinine 2.24 H Estimated GFR 29 TSH 7.94 H 6.61 H 4.32 H Free T4 0.97 Total T3 Laboratory Tests 11/22/24 11/29/24 12/06/24 06:18 06:21 06:25 TSH 6.71 H 3.65 2.89 12/13/24 12/20/24 12/27/24 06:13 06:08 09:53 TSH 1.41 1.39 1.37 01/03/25 01/10/25 06:34 14:13 TSH 0.58 0.65 [facility] Medical History (Updated 01/23/25 @ 00:01 by Lois Crowley) Dry skin Dyspnea on exertion Left wrist pain Stiffness of left wrist joint Elevated serum creatinine Elevated blood pressure reading Hematuria Bladder mass History of immune checkpoint inhibitor therapy Hypophysitis Adrenal insufficiency Hypothyroidism Port-A-Cath in place (02/16/24) History of blood transfusion Bladder cancer Obesity (BMI 30-39.9) Pure hypercholesterolemia Hyperlipemia Carpal tunnel syndrome Surgical History Mass of left axilla (05/31/24) Hx of colonoscopy Hx of cystoscopy History of surgery History of hand surgery History of ankle surgery History of cholecystectomy Family History Father Multiple sclerosis, primary progressive Mother No problems noted. 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 His labs when showed normal TSH from 06/10/2024 with subsequently developing low TSH levels on 06/28/2024 at 0.21. Had further suppression of TSH with labs going down to 0.02 on 07/19/2024. Free T4 level was normal. He subsequently developed elevated TSH of 18.86 on 08/16/2024 and most recently blood work done on 08/19/2024 showed TSH of 29.74.. This pattern is consistent with thyroiditis seen in the setting of immune checkpoint inhibitor therapies which are known to cause endocrinopathies. In terms of thyroid dysfunction, PD 1 inhibitor such as pembrolizumab are the ones most commonly involve in causing thyroid dysfunction. Generally immune checkpoint inhibitor therapy does not need to be interrupted or discontinued. And this pattern is very commonly seen were patients develop thyroiditis with low TSH from 1-6 weeks post starting therapy subsequently followed by high TSH around 8 weeks of therapy. He has a immune checkpoint inhibitor induced hypothyroidism. Started on levothyroxine 50 mcg daily on 08/19/2024 which was which has been uptitrated to 100 mcg daily. Patient continues on 100 mcg of levothyroxine. Pembrolizumab is now on hold, his last set of labs from December 2024 showed TSH of 0.65 which is normal. At this time I will repeat labs since he has not had any thyroid function tests since the past 3 months. Plan: -continue levothyroxine 100 mcg daily. -ordered TSH, free T4 to be done now -follow up in 6 months (2) Adrenal insufficiency: Code(s): E27.40 - Unspecified adrenocortical insufficiency Category: Medical Plan: 63-year-old male with metastatic bladder cancer on immunotherapy with pembrolizumab started 06/11/2024 every 21 days. He receives dexamethasone with his regimen. 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 Denies any steroid use after that. Patient denied any lightheadeness, dizziness ,vomiting at the time of these labs, only mild nausea and some weight loss noted . 09/17/24 cortisol came back as <1, ACTH 7 , normal sodium and potassium , labs consistent with secondary adrenal insufficiency. 09/18/24: Started hydrocortisone 20 mg in the morning and 10 mg in the afternoon at 1 pm 10/04/2024: Rest of the pituitary workup was unremarkable with normal testosterone, IGF-1 levels. Normal prolactin levels. This is consistent with isolated adrenal corticotropin hormone deficiency. Isolated corticotroph cells damage has been seen with pembrolizumab. Most patients with PD-1 inhibitors did not show any structural changes in the pituitary, those are more common with CTLA 4 inhibitors. At this point given he is not complaining of any vision changes or headaches I am going to not order a pituitary MRI as it does not affect clinical management. Unfortunately in September he was noted to have elevation in creatinine of up to 3.8 from a baseline of 2 consistent with GORDON with a diagnosis of interstitial nephritis in the setting of immune checkpoint inhibitor therapy. He was started on prednisone 100 mg daily, which has slowly been tapered down to currently 30 mg daily per patient. Pembrolizumab was also held.. He is following taper instructions through Oncology. I instructed him that once he is done with prednisone 10 mg daily he is willing to switch back to hydrocortisone. Has medical alert bracelet Denies any nausea, vomiting, lightheadedness, dizziness Plan: -once done with prednisone taper and down to 10 mg daily, switch back to hydrocortisone to 10 mg in the morning and 5 mg in the afternoon , I sent in a prescription for more hydrocortisone tablets today so he has those on him once he is done with prednisone -we reviewed sick day rules again, he also has hydrocortisone injection for emergencies with him -follow up in 3 months (3) Hypophysitis: Code(s): E23.6 - Other disorders of pituitary gland Category: Medical Plan: See above (4) History of immune checkpoint inhibitor therapy: Code(s): Z92.26 - Personal history of immune checkpoint inhibitor therapy Category: Medical Plan: see above Plan I spent 30 minutes in reviewing the record, seeing the patient and documenting in the medical record. Orders: Orders Thyroid Stimulating Hormone Today E03.2 - Hypothyroidism due to medicaments and other exogenous substances Free T4 (Free Thyroxine) Today E03.2 - Hypothyroidism due to medicaments and other exogenous substances Medications: New hydrocortisone orally; Take 10 mg (1 tablet) in AM and 5 mg (half a tablet) in afternoon at 2 PM daily 60 tabs 3RF Patient Instructions: Do thyroid blood work today We will reach out with results once back Continue levothyroxine 100 mcg daily Once you are done with your prednisone taper and finish the 10 mg daily dose , switch to hydrocortisone 10 mg in AM and 5 mg in afternoon at 2 PM ADRENAL SICK DAY RULE Minor ailments can affect anyone with a steroid-dependent adrenal condition very differently. Things like vomiting, diarrhea, colds and flu could cause an a drenal crisis. It's important that you spot the early symptoms of a bug or cold and adjust your steroid replacement medication. The Sick Day Rules are here to help you. If you're feeling ill or injured follow these rules to keep safe and reduce the chances of an adrenal crisis.?Make sure that you keep taking your medication whatever is going on. An adrenal crisis is serious, uncomfortable and can be life-threatening. What to do Double?your daily hydrocortisone, prednisone or prednisolone dose if: ? You have a temperature of 100.4 degrees or above. ? You get a bad cold, flu, diarrhea or other infection that makes you feel poorly or weak. ? You break a bone or suffer from any similar significant injury. For how long? ? Double your dose for 48-72 hours. If you are feeling better, go back to your usual dose. ? If you don't feel better after 48hrs, continue to double your does and speak to your doctor for more advice. ? If you are prescribed antibiotics, continue to double your dose until you finish the course or feel completely back to normal. I can't keep my medication down 1. If you vomit and bring up your medication within 30 minutes of taking it, take a double dose again immediately. 2. If you bring up the second dose,?inject yourself with 100mg of hydrocortisone?(if this has been prescribed to you) and seek medical advice immediately. 3. If you carry on vomiting, you will become dehydrated Coding Level of Care Code Est Pt Level 4 (86361) Complex EM visit Add On G2211 Diagnoses Hypothyroidism due to medication E03.2 Hypothyroidism type: due to medication Adrenal insufficiency E27.40 Hypophysitis E23.6 History of immune checkpoint inhibitor therapy Z92.26 Time Spent (min) 30
[2025-03-25 08:11] VITALS: BP 130/76; PULSE 117; O2SAT 97; BMI 31.6
== END 2025-03-25 08:39 | disposition home or self-care (01) ==
LOC: HO.ENCR 08:08
PROVIDERS: Visit Provider Student in an Organized Health Care Education/Training Program
DX: E03.2 Hypothyroidism due to medicaments and other exogenous substances (principal); E27.40 Unspecified adrenocortical insufficiency; E23.6 Other disorders of pituitary gland; Z92.26 Personal history of immune checkpoint inhibitor therapy
CPT/HCPCS: 99214; G2211

== ENCOUNTER 2025-03-25 08:07 | Outpatient (REF) | payer MEDICARE, OTHER, SELFPAY ==
[2025-03-25 10:58] LABS: Free T4 (Free Thyroxine) 1.07 ng/dL (0.71-1.85); Thyroid Stimulating Hormone 1.51 uIU/mL (0.32-4.0)
== END 2025-03-25 08:08 | disposition home or self-care (01) ==
LOC: HO.LAB 08:07
PROVIDERS: Visit Provider Student in an Organized Health Care Education/Training Program
DX: E03.2 Hypothyroidism due to medicaments and other exogenous substances (principal)
CPT/HCPCS: 36415; 84439; 84443; 99212

== ENCOUNTER 2025-03-27 12:06 | Outpatient (AMB) | payer MEDICARE, OTHER, SELFPAY ==
--- NOTE | 2025-03-27 12:07 | HO.NEPHOV_ITS ---
Vital Signs 03/27/25 12:08 Height 62 ft Weight 242 lb BMI 0.3 BP 122/86 Blood Pressure Location Lt brachial Position Sitting Pulse 104 H Pulse Source Pulse Oximeter Pulse Oximetry (%) 98 Oxygen Delivery Method Room Air Intake Visit Reasons: 3 MO FU/ LVM Plain Clothes Police Officer Required: No Accompanied by: Self / Same As Patient Allergies No Known Allergies [No Known Allergies*] Allergy (Verified 03/27/25 12:14) Medication List - Last Reconciled 03/27/25 by Km Figueroa MD albuterol sulfate 90 mcg/actuation 2 puffs inhalation Q6H PRN amlodipine 10 mg (2 x 5 mg) PO DAILY apixaban (Eliquis) 2.5 mg PO BID atorvastatin 20 mg PO BEDTIME 90 days cefuroxime axetil 500 mg PO BID clotrimazole 1% 1 appl See Protocol topical BID hydrocortisone orally; Take 10 mg (1 tablet) in AM and 5 mg (half a tablet) in afternoon at 2 PM daily levothyroxine 100 mcg PO DAILY needle (disp) 18 G (BD Regular Bevel White) As directed to draw hydrocortisone in case of emergency omeprazole 20 mg PO DAILY@0630 ondansetron 8 mg PO Q8H PRN prednisone 40 mg orally BID, SWAP TO 30 MG BID x10 DAYS ON: 01/13/25;Take 100 mg daily for 10 days followed by 80 mg daily for 10 days followed by 60 mg daily for 10 days followed by 40 mg daily for 2 weeks followed by 30 mg daily for 10 days followed by 20 mg daily for 10 days followed by 10 mg daily for 10 days and then stopped. Resume hydrocortisone twice a day after stopping prednisone syringe with needle (BD Luer-Shiv Syringe) As directed to be used to inject hydrocortisone in case of emergency [walker As directed] [walker with wheels As directed] HPI Comments Details: 63M PMH metastatic baldder cancer s/p TURBT and right nephrostomy on immunotherapy, secondary adrenal insufficiency, hypothryoid, HTN, HLD, GERD, CT urogram performed 12/06/2023 revealed moderate right hydronephrosis extending down to bladder, large heterogenous mass in the right side of bladder involving right lateral bladder wall, right UVJ region and posterior inferior base of the bladder extending toward the left UVJ concerning for bladder neoplasm. Mass is irregular in shape and difficult to measure. There is stranding of the adjacent perivesicular fat, small right retroperitoneal lymph node seen. Staging CT chest and bone scan did not show evidence of metastatic disease. Clinical stage T2/3 N0. He underwent TURBT on 12/12/2023 which revealed a necrotic bladder tumor involving right lateral wall and right trigone, right ureteral orifice was not visualized. Biopsy revealed invasive urothelial carcinoma, high-grade, tumor invades muscularis propria, lymphatic vessel invasion is identified. IHC showed focal positivity for CK20, negative for synaptophysin and chromogranin. MSI, PD-L1 positive, expression is 100% and NGS negative all pertinent mutations. (MET Exon 14 deletion, negative for alk, BRAF, FGFR 1/2/3/4, notch 1 and 2, ret and ROS1) He had right fluoroscopic guided placement of nephrostomy tube in the right kidney on 02/12/2024. He started neoadjuvant chemotherapy with cisplatin 70 mg/m2/gemcitabine 1000mg/m2 D 1 and 8 q 21 days from 02/27/2024 until 04/2024. Unfortunately, PET-CT performed at [facility] in 06/11/2024 showed multiple subcutaneous and intramuscular nodules demonstrating [id number] FDG uptake. Predominantly in the left axilla, left gluteal region. Moderate FDG uptake corresponding to right posterolateral bladder mass. No FDG avid abdominopelvic lymphadenopathy. Patient underwent ultrasound-guided biopsy of left gluteal mass which revealed metastatic poorly differentiated carcinoma. Immunostains showed positivity for CK7, focal positive tiara 3 compatible with metastatic urothelial carcinoma. Recently hospitalized for GORDON. Creatinine peaked at 3.8. He was on Pembrolizumab and this was stopped. He was given IV hydration and discharged home since he was nonoliguric. He is here for follow-up. Creatinine is decreased to 2.9. Overall he feels okay no specific complaints today. He has a follow-up appointment with the oncologist next week 12/25/2024. Being actively followed by Oncology. Resumed enfortumab vedotin since 10/2024. Repeat PET scan on 12/03/2024 showed no abnormal SUV activity, he is in remission. 03/27/25 64-year-old male presenting with declining kidney function. He reports that there has been a slight decrease in renal function since his last evaluation. His blood pressure readings have remained within normal limits, specifically at 122/86 mmHg, and he denies any episodes of hypotension that could impair renal perfusion. He admits that his fluid intake could be more adequate, which is often a concern in maintaining renal health. The patient denies any urinary symptoms, reporting regular urination with nocturia occurring once or twice per night. Urological evaluation is planned, but no immediate imaging, like ultrasound, is scheduled unless there is further decline in renal function. He is scheduled for chemotherapy on March 31, and a cystoscopy is forthcoming on April 28. Overall, the patient continues current therapies with amlodipine and atorvastatin, and blood potassium levels will be monitored due to dietary potassium intake concerns. [facility] Medical History Dry skin Dyspnea on exertion Left wrist pain Stiffness of left wrist joint Elevated serum creatinine Elevated blood pressure reading Hematuria Bladder mass History of immune checkpoint inhibitor therapy Hypophysitis Adrenal insufficiency Hypothyroidism Port-A-Cath in place (02/16/24) History of blood transfusion Bladder cancer Obesity (BMI 30-39.9) Pure hypercholesterolemia Hyperlipemia Carpal tunnel syndrome Surgical History Mass of left axilla (05/31/24) Hx of colonoscopy Hx of cystoscopy History of surgery History of hand surgery History of ankle surgery History of cholecystectomy Family History Father Multiple sclerosis, primary progressive Mother No problems noted. 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 Current occupational exposures/hazards: No Cognitive needs: No Hearing needs: No Vision needs: Yes (Glasses) Physical Exam Vital Signs: Last Vital Signs Pulse 104 H 03/27/25 12:08 BP 122/86 03/27/25 12:08 Pulse Ox 98 03/27/25 12:08 Oxygen Delivery Method Room Air 03/27/25 12:08 BMI result Body Mass Index 0.3 Results Reviewed Nephrology Results: Hgb 10.4 g/dl (14.0-18.0) L 03/27/25 WBC 7.9 X10*3/uL (4.8-10.8) 03/27/25 Plt Count 169 X10*3/uL (160-400) 03/27/25 Sodium 141 mmol/L (135-145) 03/27/25 Potassium 5.2 mmol/L (3.3-5.1) H 03/27/25 Chloride 111 mmol/L (96-108) H 03/27/25 Carbon Dioxide 23 mmol/L (22-29) 03/27/25 BUN 53 mg/dL (9-16) H 03/27/25 Creatinine 1.58 mg/dL (0.5-1.4) H 03/27/25 Calcium 9.2 mg/dL (8.4-10.2) 03/27/25 Assessment & Plan Assessment & Plan (1) GORDON (acute kidney injury): Code(s): N17.9 - Acute kidney failure, unspecified Category: Medical (2) Adrenal insufficiency: Code(s): E27.40 - Unspecified adrenocortical insufficiency Category: Medical (3) CKD stage 3b, GFR 30-44 ml/min: Code(s): N18.32 - Chronic kidney disease, stage 3b Category: Medical (4) Invasive carcinoma of urinary bladder: Code(s): C67.9 - Malignant neoplasm of bladder, unspecified Category: Medical Plan 64-year-old man with invasive bladder carcinoma. 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 He sustained superimposed GORDON most likely due to check point inhibitors. Serum creatinine peaked at 3.8 and has subsequently decreased to 2.9. Baseline creatinine is around 2.0. Mild bump in creatinine Hypoperfusion vs obstruction Reordered labs for next week Await Chemo next week and appointment next month Fluid status is optimal. Hypertension Blood pressure is acceptable. No changes were made to his regimen. Adrenal insufficiency currently on prednisone and is being managed by Dr. Brady. Shall continue to follow along with the team Orders: Orders Basic Metabolic Panel 1 Week N17.9 - Acute kidney failure, unspecified Patient Instructions: - Drink plenty of fluids daily. - Avoid eating too many oranges and bananas. - Notify us if you develop new symptoms or changes in your urinary habits. - Follow your scheduled oncology and urology appointments. - Check if blood work is scheduled before chemotherapy; if not, arrange it accordingly. - Remember that a kidney ultrasound may be necessary if there is further decline in function. - Repeat kidney function tests as advised. Coding Level of Care Code Est Pt Level 4 (57155) Diagnoses GORDON (acute kidney injury) N17.9 Adrenal insufficiency E27.40 CKD stage 3b, GFR 30-44 ml/min N18.32 Invasive carcinoma of urinary bladder C67.9
[2025-03-27 12:08] VITALS: BP 122/86; PULSE 104; O2SAT 98
--- OUTSIDE RECORDS SUMMARY | 2025-03-27 14:15 | XMS_ITS ---
Author Organization [facility] Address [address] [place] [id number] Care Team Providers Care Inspector Cold Working Name Role Phone So MCALLISTER, Primary Care Provider Unavaila Jose Doty Unavailable [phone] Eamon MCALLISTER, Zamzam Lindsay Unavailable REASON FOR VISIT colonoscopy Encounters Encounter Location Date Provider Diagnosis [facility] [address] [place] [phone] 05/27/2024 Jose Arevalo Plan Of Treatment No Information Progress Notes * SEANJOSE ESTESDOB:1960 (63 yo M)Acc No.[id number]:05/27/2024 Patient:?JOSE CUBA :1960???Age:63 Y???Sex:Male Address:[address] [place] [address] [address] [place], [id number] * true * Date:? Generated for Gig[employer] zaida/Todd/eTransmitting on:?03/27/2025 02:14 PM EDT
== END 2025-03-27 12:41 | disposition home or self-care (01) ==
LOC: HO.HKA 12:07
PROVIDERS: PCP Internal Medicine; Visit Provider Internal Medicine Hypertension Specialist
DX: N17.9 Acute kidney failure, unspecified (principal); E27.40 Unspecified adrenocortical insufficiency; N18.32 Chronic kidney disease, stage 3b; C67.9 Malignant neoplasm of bladder, unspecified
CPT/HCPCS: 99214

== ENCOUNTER → 2025-03-27 12:06 | Outpatient (BNVA) | payer MEDICARE, OTHER, SELFPAY | PROVIDERS: PCP Internal Medicine; Visit Provider Internal Medicine Hypertension Specialist | DX: N18.32 Chronic kidney disease, stage 3b (principal); N17.9 Acute kidney failure, unspecified; E27.40 Unspecified adrenocortical insufficiency; C67.9 Malignant neoplasm of bladder, unspecified | CPT/HCPCS: 99212 ==

== ENCOUNTER 2025-04-01 11:41 | Outpatient (REF) | payer MEDICARE, OTHER, SELFPAY ==
--- NOTE | ~2025-04-01 | FL_ITS ---
EXAMINATION: XR PORT INJECTION WITH RADIOLOGICAL SUPERVISION AND INTERPRETATION CLINICAL INFORMATION: port check/bladder cancer. COMPARISON: None available. TECHNIQUE: Using fluoroscopic guidance, the right chest port was localized. Skin and overlying soft tissues were cleansed aseptically, prepped and draped in sterile fashion. Skin and subcutaneous tissues were anesthetized with 1% lidocaine. An 18-gauge needle was used to attempt to aspirate any fluid surrounding the port head. No return of fluid was noted. (I.e. no definite abscess or fluid collection surrounding the port). Subsequently, A standard port access needle was then used to access the Port-A-Cath. Once access was established, the port was noted to both flush and draw normally with a 10 mL syringe. It was then heparin locked, and the port site was dressed appropriately with Tegaderm and bandaging. DAP = 5.0 dGycm2 Images: 1 Time: 6 seconds. FL/FL cva device check w fluoro IMPRESSION: 1. Left chest port is functional and was able to be accessed without difficulty. No definite abscess or abnormal fluid could be aspirated from the port pocket. Electronically signed by: Alexander Francis MD 04/01/2025 12:50 PM EDT
[2025-04-01] MEDS: Lidocaine HCl 1 % MPF 30 ML VIAL INTRAARTIC (12:50)
--- OUTSIDE RECORDS SUMMARY | 2025-04-01 14:00 | XMS_ITS ---
Author Organization [facility] Address [address] [place] [id number] Care Team Providers Care Business Analytics Director Name Role Phone So MCALLISTER, Primary Care Provider Unavaila Jose Doty Unavailable [phone] Eamon MCALLISTER, Zamzam Lindsay Unavailable REASON FOR VISIT colonoscopy Encounters Encounter Location Date Provider Diagnosis [facility] [address] [place] [phone] 05/27/2024 Jose Arevalo Plan Of Treatment No Information Progress Notes * SEANJOSE ESTESDOB:1960 (63 yo M)Acc No.[id number]:05/27/2024 Patient:?JOSE CUBA :1960???Age:63 Y???Sex:Male Address:[address] [place] [address] [address] [place], [address] * true * Date:? Generated for Gig[employer] zaida/Todd/eTransmitting on:?04/01/2025 02:00 PM EDT
== END 2025-04-01 11:42 | disposition home or self-care (01) ==
LOC: HO.XRAY 11:41
PROVIDERS: Visit Provider Internal Medicine
DX: Z45.2 Encounter for adjustment and management of vascular access device (principal); C67.9 Malignant neoplasm of bladder, unspecified; I12.9 Hypertensive chronic kidney disease with stage 1 through stage 4 chronic kidney disease, or unspecified chronic kidney disease; N18.32 Chronic kidney disease, stage 3b; E27.40 Unspecified adrenocortical insufficiency; N17.9 Acute kidney failure, unspecified; E03.2 Hypothyroidism due to medicaments and other exogenous substances; T50.905D Adverse effect of unspecified drugs, medicaments and biological substances, subsequent encounter; E78.00 Pure hypercholesterolemia, unspecified; E66.9 Obesity, unspecified; Z68.30 Body mass index [BMI] 30.0-30.9, adult; Z86.711 Personal history of pulmonary embolism; Z79.01 Long term (current) use of anticoagulants; Z79.899 Other long term (current) drug therapy
CPT/HCPCS: 36598; 99212; J2003

== ENCOUNTER → 2025-04-01 11:44 | Outpatient (BNV) | payer MEDICARE, OTHER, SELFPAY | PROVIDERS: Visit Provider Radiology Diagnostic Radiology | DX: C67.9 Malignant neoplasm of bladder, unspecified (principal); Z45.2 Encounter for adjustment and management of vascular access device | CPT/HCPCS: 36598 ==

== ENCOUNTER 2025-04-01 14:23 | Outpatient (AMB) | payer MEDICARE, OTHER, SELFPAY ==
--- NOTE | 2025-04-01 14:39 | MHC.PC.OV ---
Vital Signs 04/01/25 14:41 04/01/25 15:08 04/01/25 15:44 Height 6 ft 2 in Weight 239 lb 6 oz BMI 30.7 BP 150/98 H 130/90 H 126/90 H Blood Pressure Location Lt brachial Lt brachial Lt brachial Position Sitting Sitting Sitting Pulse 107 H Pulse Source Pulse Oximeter Temp 96.9 F Temp Source Temporal Artery Scan Pulse Oximetry (%) 98 Oxygen Delivery Method Room Air Intake Visit Reasons: [facility] 03/13 Intake Note: Patient is here for hospital discharge follow up. Patient was discharged from [facility] on 03/13/25. Solvent Mixer Required: No Offset Press Operator Apprentice: Not Required per policy Accompanied by: Self / Same As Patient Allergies No Known Allergies [No Known Allergies*] Allergy (Verified 04/01/25 14:40) Medication List - Last Reconciled 04/01/25 by Mckayla Wolfe PA-C albuterol sulfate 90 mcg/actuation 2 puffs inhalation Q6H PRN amlodipine 10 mg (2 x 5 mg) PO DAILY apixaban (Eliquis) 2.5 mg PO BID atorvastatin 20 mg PO BEDTIME 90 days clotrimazole 1% 1 appl See Protocol topical BID hydrocortisone orally; Take 10 mg (1 tablet) in AM and 5 mg (half a tablet) in afternoon at 2 PM daily levothyroxine 100 mcg PO DAILY needle (disp) 18 G (BD Regular [place]) As directed to draw hydrocortisone in case of emergency omeprazole 20 mg PO DAILY@0630 prednisone 40 mg orally BID, SWAP TO 30 MG BID x10 DAYS ON: 01/13/25;Take 100 mg daily for 10 days followed by 80 mg daily for 10 days followed by 60 mg daily for 10 days followed by 40 mg daily for 2 weeks followed by 30 mg daily for 10 days followed by 20 mg daily for 10 days followed by 10 mg daily for 10 days and then stopped. Resume hydrocortisone twice a day after stopping prednisone syringe with needle (BD Luer-Shiv Syringe) As directed to be used to inject hydrocortisone in case of emergency [walker As directed] [walker with wheels As directed] Tobacco use date assessed: 04/01/25 Fall risk assessment: 1 Fall in past year Last assessed Fall Risk: 04/01/25 Dental Screening Dental Screen Date: 10/29/24 [facility] 03/13 [facility] Details 64-year-old male with past medical history of hypercholesterolemia, obesity, neuropathy, bladder cancer, chronic kidney disease, hypothyroidism, adrenal insufficiency, hypertension coming to the office for hospital discharge follow up. He was previously a patient of Dr. Rizzo. He was seen by Hematology/Oncology earlier today continued on prednisone with plan to taper and resume hydrocortisone for adrenal insufficiency. Recent chest CT shows resolution of lung infiltrates and no evidence of metastatic disease. Seen by the sap crm developer 03/27/2025 repeat labs in 1 week to follow with Dr. Brady for adrenal insufficiency. Seen by endocrinology 03/25/2025 reviewed taper for prednisone and continue on hydrocortisone advised to follow up in 3 months. Presenting for chronic condition management. History of pulmonary embolism since January, with no signs of metastasis noted on the latest chest CT. The patient is managing bladder cancer under a automotive sales specialist and oncologist's guidance. Adrenal insufficiency is being treated by transitioning from prednisone to hydrocortisone under endocrinological care. Recent hospitalization in a rehabilitation center involved stable management of hypertension without significant medication adjustment other than the regulation of amlodipine. Engaged in physical therapy aimed at improving leg strength. Regular visits from the [facility] three times weekly, with challenges in scheduling post-discharge appointments noted. [facility] Medical History (Updated 04/02/25 @ 08:00 by Mckayla Wolfe PA-C) Pulmonary embolism Dry skin Dyspnea on exertion Left wrist pain Stiffness of left wrist joint Elevated serum creatinine Elevated blood pressure reading Hematuria Bladder mass History of immune checkpoint inhibitor therapy Hypophysitis Adrenal insufficiency Hypothyroidism Port-A-Cath in place (02/16/24) History of blood transfusion Bladder cancer Obesity (BMI 30-39.9) Pure hypercholesterolemia Hyperlipemia Carpal tunnel syndrome Surgical History Mass of left axilla (05/31/24) Hx of colonoscopy Hx of cystoscopy History of surgery History of hand surgery History of ankle surgery History of cholecystectomy Family History Father Multiple sclerosis, primary progressive Mother No problems noted. 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 Current occupational exposures/hazards: No Cognitive needs: No Hearing needs: No Vision needs: Yes (Glasses) Questionnaire Thrive Questionnaire Date Thrive assessed: 11/14/24 I am a: Patient What is your living situation today?: I have a steady place to live Within the past 12 months, did the food you bought not last and you didn't have the money to get more?: Never true Within the past 12 months, did you worry whether your food would run out before you got money to buy more?: Never true Do you have trouble paying for medicines?: No Do you have trouble getting transportation to medical appointments?: No Do you have trouble paying your heating and electricity bill?: No Do you have trouble taking care of your child, family member or friend?: No Do you have trouble with day-to-day activities such as bathing, preparing meals, shopping, managing finances, etc.?: I choose not to answer this question Are you currently unemployed and looking for a job?: Yes Are you interested in more education?: No Please select the resources that you would like help with: None Currently or been in a relationship where the following occur: No concerns reported THRIVE Score: 0 RANDY-7 AMB Questionnaire RANDY-7 Date RANDY - 7 assessed: 11/21/24 Source: Developed by Drs. Brady Becerra, Alba Morales, Remy Brothers and colleagues, with an educational holly from [employer]. Review of Systems Const Denies body aches, Denies chills, Denies fever(s), Denies headache(s) and Denies poor appetite Eyes Reports no additional complaints ENT Denies dizziness and Denies headache(s) Card Denies chest pain, Denies lightheadedness and Denies dyspnea Resp Denies cough and Denies dyspnea GI Denies diarrhea, Denies nausea and Denies vomiting Reports no additional complaints Musc Reports no additional complaints and Denies abnormal gait Skin/Breast Reports system reviewed and no additional complaints, except as documented Neuro Denies abnormal gait, Denies dizziness and Denies headache(s) Psych Reports no additional complaints Physical exam (Primary Care) Vital Signs: Last Vital Signs Temp 96.9 F 04/01/25 14:41 Pulse 107 H 04/01/25 14:41 BP 126/90 H 04/01/25 15:44 Pulse Ox 98 04/01/25 14:41 Oxygen Delivery Method Room Air 04/01/25 14:41 BMI result Body Mass Index 30.7 Tobacco/Smoking Status: Tobacco use Status Tobacco use date assessed 04/01/25 04/01/25 14:44 Patient Tobacco Use Status Former Tobacco user 04/01/25 14:44 Tobacco use type Cigarette 04/01/25 14:44 e-Cigarette/Vaping Use Never Used 04/01/25 14:44 Thrive Assessment: Date of Thrive Assessment Date Thrive assessed 11/14/24 04/01/25 14:44 Currently or been in a relationship where the following occur: No concerns reported Const General: cooperative, healthy appearing, comfortable and no acute distress Orientation/consciousness: patient oriented x3 HENMT Head: Yes normocephalic Ears: hearing grossly normal bilaterally General nose exam: Normal external nose present Eyes General: appearance normal, both eyes and all related structures Conjunctivae: conjunctivae normal Neck Neck: Yes full ROM and Yes no lymphadenopathy Resp Effort & Inspection: normal respiratory effort Auscultation: clear to auscultation bilaterally, no crackles, no rales, no rhonchi and no wheezes Cardio Rate: regular rate Rhythm: regular rhythm Skin General skin exam: no rashes or lesions noted Neuro General: patient oriented x3 Gait exam (Neuro): Normal gait present Extrem General: Yes normal to inspection, Yes full ROM and No edema Psych Affect: normal affect Attitude: cooperative Insight: Good insight present (Psych) Judgement: Good judgement present (Psych) Coding Level of Care Code Est Pt Level 4 (71770) Diagnoses Hypertension I10 GORDON (acute kidney injury) N17.9 Adrenal insufficiency E27.40 Hypothyroidism due to medication E03.2 Hypothyroidism type: due to medication CKD stage 3b, GFR 30-44 ml/min N18.32 Malignant neoplasm metastatic from bladder C67.9 Pure hypercholesterolemia E78.00 Obesity (BMI 30-39.9) E66.9 Pulmonary embolism I26.99 Assessment & Plan Assessment & Plan (1) Hypertension: Code(s): I10 - Essential (primary) hypertension Category: Medical Plan: Continue on current blood pressure medication. Avoid salt intake and encourage healthy diet and regular exercise. Blood pressure mildly elevated today in the office 126/90. Patient has regular blood pressure checks with his [facility] in all values has been within normal limits. Advised patient to continue to monitor blood pressures at home and if exceed 140/90 to reach out to the office. (2) GORDON (acute kidney injury): Code(s): N17.9 - Acute kidney failure, unspecified Category: Medical Plan: Patient is being followed by Nephrology reminded about upcoming blood work to monitor kidney function. (3) Adrenal insufficiency: Code(s): E27.40 - Unspecified adrenocortical insufficiency Category: Medical Plan: Patient is being tapered off of prednisone with plan to start on hydrocortisone with endocrinology. (4) Hypothyroidism: Code(s): E03.9 - Hypothyroidism, unspecified Category: Medical Qualifiers: Hypothyroidism type: due to medication Qualified Code(s): E03.2 - Hypothyroidism due to medicaments and other exogenous substances Plan: Continue to monitor thyroid labs last TSH and T4 WNL continue on LEvothyroxine 100mcg (5) CKD stage 3b, GFR 30-44 ml/min: Code(s): N18.32 - Chronic kidney disease, stage 3b Category: Medical Plan: Continue to monitor kidney function. Avoid kidney irritants and stay well hydrated. Continue to follow with Nephrology (6) Malignant neoplasm metastatic from bladder: Code(s): C67.9 - Malignant neoplasm of bladder, unspecified Category: Surgical Plan: Patient is currently following with Hematology Oncology. Continue with current chemo schedule. (7) Pure hypercholesterolemia: Code(s): E78.00 - Pure hypercholesterolemia, unspecified Category: Medical Plan: Avoid foods that are high in cholesterol such as red meat, fried foods, eggs and baked goods. Triglyceride goal of less than 150 and LDL goal of less than 100. Continue on atorvastatin (8) Obesity (BMI 30-39.9): Code(s): E66.9 - Obesity, unspecified Category: Medical Plan: Healthy diet and regular exercise is encouraged. (9) Pulmonary embolism: Code(s): I26.99 - Other pulmonary embolism without acute cor pulmonale Category: Medical Plan: Recently diagnosed with pulmonary embolism last CAT scan showed resolution of lung changes. Currently on Eliquis dose 2.5 mg b.i.d. for renal dosing and confirms this with his automotive sales specialist. He did miss his new patient visit with pulmonology due to rehab and a message was sent to the office today. Plan The management plan for Brady?s chronic conditions involves continued coordination with multiple specialists to ensure comprehensive oversight. His anticoagulation therapy with Eliquis is ongoing to address the risks associated with his pulmonary embolism. Recent imaging results are reassuring, indicating no lung metastases. Transitioning off prednisone in favor of hydrocortisone for adrenal insufficiency is being carefully monitored. Blood pressure monitoring indicates stability, so no adjustments to antihypertensive therapy are warranted at this time. Physical therapy continues to support overall mobility. Medications, including atorvastatin, are maintained to address hyperlipidemia. He is scheduled for nephrological lab evaluations soon, and follow-up appointments with other specialists are coordinated to address ongoing health needs. A follow-up in three months will ensure close observation of his health progress. This note was constructed using voice recognition software. While every effort has been made to ensure accuracy and cd mixer helper, still areas may have been included sometimes these areas may affect the content or meeting of the given symptoms. Total time spent caring for the patient today was 20 minutes. This includes time spent before the visit reviewing the chart, time spent during the visit, and time spent after the visit and documentation. Patient was informed and verbally consented to the use of an ambient scribe for clinic note documentation during this visit. Medications: Refilled atorvastatin 20 mg PO BEDTIME 90 days 90 tabs 2RF
[2025-04-01 14:41] VITALS: BP 150/98; PULSE 107; TEMP 36.1; O2SAT 98; BMI 30.7
[2025-04-01 15:08] VITALS: BP 130/90
[2025-04-01 15:44] VITALS: BP 126/90
== END 2025-04-01 15:49 | disposition home or self-care (01) ==
LOC: HO.HMCH 14:24
DX: I12.9 Hypertensive chronic kidney disease with stage 1 through stage 4 chronic kidney disease, or unspecified chronic kidney disease (principal); N18.32 Chronic kidney disease, stage 3b; C67.9 Malignant neoplasm of bladder, unspecified; I26.99 Other pulmonary embolism without acute cor pulmonale; E66.9 Obesity, unspecified; Z68.30 Body mass index [BMI] 30.0-30.9, adult; N17.9 Acute kidney failure, unspecified; E27.40 Unspecified adrenocortical insufficiency; E03.2 Hypothyroidism due to medicaments and other exogenous substances; E78.00 Pure hypercholesterolemia, unspecified

== ENCOUNTER 2025-04-04 06:11 | Outpatient (REF) | payer MEDICARE, OTHER, SELFPAY ==
--- OUTSIDE RECORDS SUMMARY | 2025-04-04 06:14 | XMS_ITS ---
Author Organization [facility] Address [address] [place] [id number] Care Team Providers Care Ironer Hand Name Role Phone So MCALLISTER, Primary Care Provider Unavaila Jose Doty Unavailable [phone] Eamon MCALLISTER, Zamzam Lindsay Unavailable REASON FOR VISIT colonoscopy Encounters Encounter Location Date Provider Diagnosis [facility] [address] [place] [id number] 05/27/2024 Jose Arevalo Plan Of Treatment No Information Progress Notes * SEANJOSE ESTESDOB:1960 (63 yo M)Acc No.[id number]:05/27/2024 Patient:?JOSE CUBA :1960???Age:63 Y???Sex:Male Address:[address] [place] [address] [place], [id number] * true * Date:? Generated for Gig[employer] zaida/Todd/eTransmitting on:?04/04/2025 06:13 AM EDT
[2025-04-04 06:22] LABS: MANUAL DIFF FLAG NO
[2025-04-04 06:24] LABS: Basophils Percent Auto 0.3 % (0-2); Eosinophils Percent Auto 0.5 % (0-4); Hematocrit 33.5 % (42.0-52.0); Hemoglobin 10.9 g/dl (14.0-18.0); Imm Gran Pct Auto 1.6 % (0.0-0.4); Lymphocytes Absolute Auto 1.8 X10*3/uL (1.2-4.9); Lymphocytes Percent Auto 29.2 % (20-40); Mean Corpuscular HGB Conc 32.5 g/dl (31.0-36.0); Mean Corpuscular Hemoglobin 34.8 pg (27.0-33.0); Mean Platelet Volume 8.9 fL (9.4-12.4); Monocytes Absolute Auto 0.5 X10*3/uL (0.1-1.2); Monocytes Percent Auto 8.5 % (2-11); Neutrophils Absolute Auto 3.7 x10*3/uL (2.0-8.3); Neutrophils Percent Auto 59.9 % (45-73); Platelet Count 158 X10*3/uL (160-400); Red Blood Count 3.13 X10*6/uL (4.60-5.80); Red Cell Distribution Width 16.2 % (11.0-16.0); White Blood Count 6.1 X10*3/uL (4.8-10.8)
[2025-04-04 06:35] LABS: D Dimer High Sensitivity 169 NG/ML
[2025-04-04 06:39] LABS: Alanine Aminotransferase 24 U/L (0-40); Albumin Level 3.9 g/dL (3.5-5.0); Alkaline Phosphatase 66 U/L (39-117); Anion Gap 11 (12-20); Aspartate Amino Transferase 28 U/L (5-37); Bilirubin Total 0.3 mg/dL (0.0-1.0); Blood Urea Nitrogen 37 mg/dL (9-16); Calcium 9.2 mg/dL (8.4-10.2); Carbon Dioxide 24 mmol/L (22-29); Chloride 109 mmol/L (96-108); Estimated Glomerular Filt Rate 50; Glucose Random 91 mg/dL (60-115); Potassium 4.4 mmol/L (3.3-5.1); Sodium 140 mmol/L (135-145); Total Protein 6.1 g/dL (6.5-8.0)
== END 2025-04-04 06:12 | disposition home or self-care (01) ==
LOC: HO.LAB 06:11
PROVIDERS: Absent Provider Internal Medicine Hypertension Specialist; Visit Provider Internal Medicine
DX: C67.9 Malignant neoplasm of bladder, unspecified (principal); N17.9 Acute kidney failure, unspecified
CPT/HCPCS: 36415; 80053; 83735; 85025; 85379

== ENCOUNTER 2025-04-18 05:56 | Outpatient (REF) | payer MEDICARE, OTHER, SELFPAY ==
[2025-04-18 06:07] LABS: MANUAL DIFF FLAG NO
[2025-04-18 06:16] LABS: Basophils Percent Auto 0.4 % (0-2); Eosinophils Percent Auto 0.6 % (0-4); Imm Gran Abs Auto 0.08 X10*3/uL (0.00-0.03); Imm Gran Pct Auto 1.6 % (0.0-0.4); Lymphocytes Absolute Auto 1.3 X10*3/uL (1.2-4.9); Lymphocytes Percent Auto 25.4 % (20-40); Mean Corpuscular HGB Conc 34.4 g/dl (31.0-36.0); Mean Corpuscular Hemoglobin 34.4 pg (27.0-33.0); Mean Platelet Volume 9.3 fL (9.4-12.4); Monocytes Absolute Auto 0.8 X10*3/uL (0.1-1.2); Monocytes Percent Auto 14.8 % (2-11); Neutrophils Absolute Auto 2.9 x10*3/uL (2.0-8.3); Neutrophils Percent Auto 57.2 % (45-73); Platelet Count 208 X10*3/uL (160-400); White Blood Count 5.1 X10*3/uL (4.8-10.8)
[2025-04-18 06:35] LABS: Alanine Aminotransferase 15 U/L (0-40); Albumin Level 3.9 g/dL (3.5-5.0); Alkaline Phosphatase 81 U/L (39-117); Anion Gap 13 (12-20); Aspartate Amino Transferase 26 U/L (5-37); Bilirubin Total 0.5 mg/dL (0.0-1.0); Blood Urea Nitrogen 33 mg/dL (9-16); Calcium 9.5 mg/dL (8.4-10.2); Carbon Dioxide 24 mmol/L (22-29); Chloride 106 mmol/L (96-108); Estimated Glomerular Filt Rate 38; Glucose Random 114 mg/dL (60-115); Magnesium 1.9 mg/dL (1.6-2.6); Potassium 4.9 mmol/L (3.3-5.1); Sodium 138 mmol/L (135-145); Total Protein 6.4 g/dL (6.5-8.0)
== END 2025-04-18 05:57 | disposition home or self-care (01) ==
LOC: HO.LAB 05:56
PROVIDERS: Visit Provider Internal Medicine
DX: C67.9 Malignant neoplasm of bladder, unspecified (principal)
CPT/HCPCS: 36415; 80053; 83735; 85025

== ENCOUNTER 2025-04-28 07:21 | Outpatient (REF) | payer MEDICARE, OTHER, SELFPAY ==
--- OUTSIDE RECORDS SUMMARY | 2025-04-28 07:24 | XMS_ITS | Encounter Summary ---
Author Organization [facility] Address [address] [place] [address] Care Team Providers Care Portable Irrigation Operator Name Role Phone Morris Rizzo Primary Care Provider [phone] Encounter Details Date Type Department Care Team (Late st Contact Info) Description 04/15/2024 Orders Only [facility] [address] [facility], [address]th [place] [address] Shola Arroyo MD [address] [place] [id number] Social History Tobacco Use Types Packs/Day Years [...] on filedocumented in this encounter Care Teams Portable Irrigation Operator Relationship Specialty Start Date End Date Morris Rizzo [address] [place] [address] [place] [address] PCP - General Internal Medicine 01/09/24 documented as of this encounter
--- OUTSIDE RECORDS SUMMARY | 2025-04-28 07:24 | XMS_ITS | Encounter Summary ---
Author Organization [facility] Address [address] [place] [address] Care Team Providers Care Sephora Operations Consultant Name Role Phone Morris Rizzo MD Primary Care Provider [phone] Encounter Details Date Type Department Care Team (Late st Contact Info) Description 02/03/2025 Lab Requisition [facility] - Main Lab [address] [facility] [place] [address] Alexys Puentes MD [address] [place] [id number] Chronic kidney disease, unspecified; Hyperlipidemia, unspecified; Thyrotoxicosis, unspecified without thyrotoxic crisis or storm Social History Tobacco Use Types Packs/Day Years Used Date Smoking Tobacco: Never Assessed Sex and Gender Information Value Date Recorded Sex Assigned at Not on file Legal Sex Male 8:59 PM EST Gender Identity Not on file Sexual Orientation Not on file documented as of this encounter Plan of Treatment Not on file documented as of this encounter Procedures Procedure Name Priority Date/Time Associated Diagnosis Comments COMPLETE BLOOD COUNT Routine 02/04/2025 8:05 AM EDT Chronic kidney disease, unspecified Hyperlipidemia, unspecified Thyrotoxicosis, unspecified without thyrotoxic crisis or storm HEPATIC FUNCTION PANEL Routine 02/04/2025 8:05 AM EDT Chronic kidney disease, unspecified Hyperlipidemia, unspecified Thyrotoxicosis, unspecified without thyrotoxic crisis or storm BASIC METABOLIC PANEL Routine 02/04/2025 8:05 AM EDT Chronic kidney disease, unspecified Hyperlipidemia, unspecified Thyrotoxicosis, unspecified without thyrotoxic crisis or storm documented in this encounter Results * (ABNORMAL) Hepatic function panel (02/04/2025 8:05 AM EDT) Total Protein 5.0(L) 6.0 - 8.0 g/dL LAB CHE[facility]STR[facility] Albumin 2.6(L) 3.2 - 5.0 g/dL LAB CHEMISTRY METHOD 02/04/2025 12:03 PM EDT [facility] Total Bilirubin 0.8 0.0 - 1.4 mg/dL LAB CHEMISTRY METHOD 02/04/2025 12:03 PM [facility] Bilirubin, Direct 0.2 0.0 - 0.3 mg/dL LAB CHEMISTRY METHOD 02/04/2025 12:03 PM [facility] Bilirubin, Indirect 0.6 0.0 - 1.1 mg/dL LAB CHEMISTRY METHOD 02/04/2025 12:03 PM [facility] ALT (SGPT) 52 10 - 60 unit/L LAB CHEMISTRY METHOD 02/04/2025 12:03 PM [facility] AST (SGOT) 27 10 - 42 unit/L LAB CHEMISTRY METHOD 02/04/2025 12:03 PM [facility] Alkaline Phosphatase 128(H) 42 - 121 unit/L LAB CHEMISTRY METHOD 02/04/2025 12:03 PM [facility] Blood Venous blood specimen / Unknown Venipuncture / Unknown 02/04/2025 8:05 AM EDT 02/04/2025 10:03 AM EDT us Alexys Puentes MD LAB BLOOD ORDERABLES Final Result [facility] [address] [place], [place] [address] [phone] * (ABNORMAL) Basic metabolic panel (02/04/2025 8:05 AM EDT) Sodium 138 133 - 145 mmol/L LAB CHEMISTRY METHOD 02/04/2025 12:03 PM [facility] Potassium 3.4(L) 3.5 - 5.5 mmol/L LAB CHEMISTRY METHOD 02/04/2025 12:03 PM [facility] Chloride 105 96 - 110 mmol/L LAB CHEMISTRY METHOD 02/04/2025 12:03 PM [facility] CO2 27 21 - 32 mmol/L LAB CHEMISTRY METHOD 02/04/2025 12:03 PM [facility] Anion Gap 6 3 - 11 LAB CHEMISTRY METHOD 02/04/2025 12:03 PM [facility] Glucose 75 70 - 100 mg/dL LAB CHEMISTRY METHOD 02/04/2025 12:03 PM [facility] BUN 34(H) 5 - 25 mg/dL LAB CHEMISTRY METHOD 02/04/2025 12:03 PM [facility] Creatinine 1.66(H) 0.70 - 1.30 mg/dL LAB CHEMISTRY METHOD 02/04/2025 12:03 PM [facility] eGFR 45(L) >=60 mL/min/1. 73m2 LAB CHEMISTRY METHOD 02/04/2025 12:03 PM [facility] Comment:Calculation based on the Chronic Kidney Disease Epidemiology Collaboration (CKD-EPI) equation refit without adjustment for race. BUN/Creatinine Ratio 20.5 LAB CHEMISTRY METHOD 02/04/2025 12:03 PM [facility] Calcium 8.9 8.5 - 10.5 mg/dL LAB CHEMISTRY METHOD 02/04/2025 12:03 PM [facility] Blood Venous blood specimen / Unknown Venipuncture / Unknown 02/04/2025 8:05 AM EDT 02/04/2025 10:03 AM EDT us Alexys Puentes MD LAB BLOOD ORDERABLES Final Result [facility] [address] [place] [address], [place] [phone] * (ABNORMAL) Complete blood count (02/04/2025 8:05 AM EDT) WBC 4.8 4.8 - 10.8 K/mcL LAB HEMETOLOGY METHOD 02/04/2025 11:16 AM EDT [facility] RBC 3.10(L) 4.50 - 5.50 M/mcL LAB HEMETOLOGY METHOD 02/04/2025 11:16 AM [facility] Hemoglobin 9.9(L) 13.5 - 17.5 g/dL LAB HEMETOLOGY METHOD 02/04/2025 11:16 AM [facility] Hematocrit 29.6(L) 42.0 - 54.0 % LAB HEMETOLOGY METHOD 02/04/2025 11:16 AM [facility] MCV 97.0 79.0 - 98.0 FL LAB HEMETOLOGY METHOD 02/04/2025 11:16 AM [facility] MCH 32.5(H) 27.0 - 32.0 pcg LAB HEMETOLOGY METHOD 02/04/2025 11:16 AM [facility] MCHC 33.4 32.0 - 37.0 g/dL LAB HEMETOLOGY METHOD 02/04/2025 11:16 AM [facility] RDW 19.0(H) 11.0 - 15.0 % LAB HEMETOLOGY METHOD 02/04/2025 11:16 AM [facility] Platelets 120(L) 130 - 400 K/mcL LAB HEMETOLOGY METHOD 02/04/2025 11:16 AM EDT [facility] MPV 10.3 7.0 - 11.0 FL LAB HEMETOLOGY METHOD 02/04/2025 11:16 AM EDT [facility] NRBC 0.6 <1.0 % LAB HEMETOLOG METHOD 02/04/2025 11:16 AM EDT [facility] NRBC Absolute 0.03 <0.10 K/mcL LAB HEMETOLOGY METHOD 02/04/2025 11:16 AM EDT [facility] Blood Venous blood specimen / Unknown Venipuncture / Unknown 02/04/2025 8:05 AM EDT 02/04/2025 10:03 AM EDT us Alexys Puentes MD LAB BLOOD ORDERABLES Final Result [facility] [address] [place] [address], documented in this encounter Visit Diagnoses Diagnosis Chronic kidney disease, unspecified Hyperlipidemia, unspecified Thyrotoxicosis, unspecified without thyrotoxic crisis or storm documented in this encounter Care Teams Sephora Operations Consultant Relationship Specialty Start Date End Date Morris Rizzo MD [address] [place] [id number] PCP - General Internal Medicine 05/27/22 documented as of this encounter
--- OUTSIDE RECORDS SUMMARY | 2025-04-28 07:24 | XMS_ITS | Patient Health Record ---
Author Organization [facility] Address [address] [place] [address] Care Team Providers Care Bicycle Ii Assembler Name Role Phone So MCALLISTER, Primary Care Provider Unavaila Jose Doty Unavailable [phone] Eamon MCALLISTER, Zamzam Unavailable Unavailable Reason For [...] Status Risk Notes Problem Colon cancer screening (705401733) Colon cancer screening (Z12.11) Active confirmed Problem [id number] Epigastric abdominal pain (R10.13) Active confirmed Problem [id number] Encounter for screening for malignant neoplasm of colon (Z12.11) Active confirmed Problem [id number] Preprocedural examination (Z01.818) Active confirmed Encounters Encounter Location Date Provider Diagnosis [facility] [address] [place] [address] 05/27/2024 Jose Arevalo [facility] [address] [place] [address] 05/30/2024 Jose Arevalo Plan Of Treatment Future Test Test Name Order Date UPPER GI ENDOSCOPY 08/23/2017 COLONOSCOPY 04/10/2019 COLONOSCOPY 04/26/2024 Insurance Providers Payer Name Payer Address Payer Phone Subscriber Number Group Number Insured Name Patient Relationship to Insured Coverage Start Date Coverage End Date MEDICARE OF [place] [address] [place] [address] [id number] JOSE CUBA Self - patient is the insured [employer] [address] [place] [address] [id number] JOSE CUBA Self - patient is the insured Medical (General) History Medical History History ICD Code Denies AR,DM,CVA,Lung disease,renal dise ase Hyperlipidemia Screening colonoscopy in Mar with Dr. Johansen revealed only hyperplastic polyps. EGD in 08/2017-small HH, normal duodenal and gastric biopsies Surgical History Surgery Date(Month/Year) Lap cholecystectomy--acalculous cholecys titis-Dr. Knutson 05/2017 Finger- infection drained 1969
[2025-04-28 07:33] LABS: MANUAL DIFF FLAG NO
[2025-04-28 07:35] LABS: Hematocrit 32.8 % (42.0-52.0); Hemoglobin 11.2 g/dl (14.0-18.0); Imm Gran Abs Auto 0.08 X10*3/uL (0.00-0.03); Imm Gran Pct Auto 1.4 % (0.0-0.4); Lymphocytes Absolute Auto 1.5 X10*3/uL (1.2-4.9); Mean Corpuscular HGB Conc 34.1 g/dl (31.0-36.0); Mean Corpuscular Hemoglobin 33.1 pg (27.0-33.0); Mean Corpuscular Volume 97.0 fL (80.0-98.0); NRBC Abs Auto 0.000 X10*3/uL (0.0-0.012); NRBC Pct Auto 0.0 /100WBC (0.0-0.2); Platelet Count 232 X10*3/uL (160-400); Red Blood Count 3.38 X10*6/uL (4.60-5.80); White Blood Count 5.9 X10*3/uL (4.8-10.8)
[2025-04-28 07:50] LABS: Alanine Aminotransferase 12 U/L (0-40); Albumin Level 4.0 g/dL (3.5-5.0); Alkaline Phosphatase 100 U/L (39-117); Anion Gap 12 (12-20); Aspartate Amino Transferase 28 U/L (5-37); Blood Urea Nitrogen 29 mg/dL (9-16); Calcium 9.6 mg/dL (8.4-10.2); Carbon Dioxide 21 mmol/L (22-29); Chloride 111 mmol/L (96-108); Estimated Glomerular Filt Rate 34; Magnesium 1.9 mg/dL (1.6-2.6); Potassium 4.2 mmol/L (3.3-5.1); Sodium 140 mmol/L (135-145); Total Protein 6.7 g/dL (6.5-8.0)
== END 2025-04-28 07:22 | disposition home or self-care (01) ==
LOC: HO.LAB 07:21
PROVIDERS: Urology; Visit Provider Internal Medicine
DX: R32 Unspecified urinary incontinence (principal); C67.9 Malignant neoplasm of bladder, unspecified; N18.32 Chronic kidney disease, stage 3b; N13.30 Unspecified hydronephrosis; Z79.52 Long term (current) use of systemic steroids; Z79.51 Long term (current) use of inhaled steroids; Z79.01 Long term (current) use of anticoagulants; Z79.899 Other long term (current) drug therapy; Z90.79 Acquired absence of other genital organ(s)
CPT/HCPCS: 36415; 52000; 80053; 81003; 83735; 85025; 87086; 87088; 87186; 88112; 99212

== ENCOUNTER 2025-04-28 08:29 | Outpatient (AMB) | payer MEDICARE, OTHER, SELFPAY ==
--- NOTE | 2025-04-27 15:15 | MHC.OFFVIS ---
Intake Visit Reasons: cysto Intake Note: Patient present to office today for a cystoscopy Urology Medication:None Antibiotic Allergy:None Blood Thinner:None Lot#: [id number] Exp: 12/30/26 Gaming Associate Required: No Allergies No Known Allergies (No Known Allergies*) Allergy (Verified 04/28/25 09:20) Medication List - Last Reconciled 04/28/25 by Sangita Hopkins MD albuterol sulfate 90 mcg/actuation 2 puffs inhalation Q6H PRN apixaban (Eliquis) 2.5 mg PO BID atorvastatin 20 mg PO BEDTIME 90 days clotrimazole 1% 1 appl See Protocol topical BID hydrocortisone orally; Take 10 mg (1 tablet) in AM and 5 mg (half a tablet) in afternoon at 2 PM daily levothyroxine 100 mcg PO DAILY metoprolol tartrate 25 mg PO BID 90 days needle (disp) 18 G (BD Regular Bevel Penasco) As directed to draw hydrocortisone in case of emergency omeprazole 20 mg PO DAILY@0630 prednisone 40 mg orally BID, SWAP TO 30 MG BID x10 DAYS ON: 01/13/25;Take 100 mg daily for 10 days followed by 80 mg daily for 10 days followed by 60 mg daily for 10 days followed by 40 mg daily for 2 weeks followed by 30 mg daily for 10 days followed by 20 mg daily for 10 days followed by 10 mg daily for 10 days and then stopped. Resume hydrocortisone twice a day after stopping prednisone syringe with needle (BD Luer-Shiv Syringe) As directed to be used to inject hydrocortisone in case of emergency [walker As directed] [walker with wheels As directed] HPI Comments Details: 04/28/25--here for cysto Follows with oncology underwent excision of left axillary mass on 05/31/2024, pathology revealed poorly differentiated carcinoma compatible with metastatic urothelial carcinoma. Patient started systemic therapy with enfortumab vedotin with pembrolizumab administered every 21 days in 06/11/2024. History of Present Illness - The patient is a 64-year-old male presenting with metastatic urothelial carcinoma. - Initially diagnosed with bladder cancer on 12/12/23, with a large tumor infiltrating the right trigone. - Underwent transurethral resection of the bladder tumor on 12/12/23. - Currently under oncology care, receiving chemotherapy. - Right hydronephrosis noted on imaging, managed with a right nephrostomy tube to optimize renal function. - Nephrostomy tube has been in place for several months, with periodic changes scheduled. Results - Office Cystoscopy-04/28/25: No gross papillary lesions observed in the bladder. - Urinalysis: Negative for blood. 01/06/25--Brady has been diagnosed with invasive bladder cancer. s/p TURBT 12/12/23. He presents with a chronic cough. The patient states he has undergone extensive diagnostic testing, all yielding negative results, including tests for RSV, influenza, and COVID-19, and a chest x-ray. He has experienced facial bruising due to a fall on the stairs but did not lose consciousness or have additional imaging. Regarding his invasive bladder cancer, The ongoing management includes chemotherapy and a right nephrostomy tube, with no noted issues at this visit. Nephrostomy tube site is c/d/i. Dressing changed. Urinalysis today 2+ leukocytes 2+ blood. I will empirically start Bactrim DS twice a day pending urine culture. I will send urine for cytology. I have discussed fu for office cysto. 10/31/24--Brady was in the ED because his nephrostomy tube came out. I have evaluated the nephrostomy tube site there is leaking around the tubing which was reconnected. The patient continues to follow-up with Heme-Onc. 09/23/24--6 month FU. Brady has been diagnosed with invasive bladder cancer. s/p TURBT 12/12/23. PET-CT performed at [facility] showed multiple subcutaneous and intramuscular nodules demonstrating gpan-[id number] FDG uptake. Predominantly in the left axilla, left gluteal region. Moderate FDG uptake corresponding to right posterolateral bladder mass. No FDG avid abdominopelvic lymphadenopathy. Patient underwent ultrasound-guided biopsy of left gluteal mass which revealed metastatic poorly differentiated carcinoma. Immunostains showed positivity for CK7, focal positive tiara 3 compatible with metastatic urothelial carcinoma. Also left axillarymass, excision: Poorly differentiated carcinoma, well-circumscribed subcutaneous nodule, completely excised; compatible with metastatic urothelial carcinoma. He is followed by Oncology. Last Neph tube change 05/23/24. He is seen by the urology nurse q 2 wks to check Nephrostomy site and change dressing. Will sched Neph tube change in 8-10 weeks. 03/28/24--Brady has been diagnosed with invasive bladder cancer. s/p TURBT 12/12/23. Clinical stage T2/[address] chest and bone scan did not show evidence of metastatic disease. He had placement of right nephrostomy tube in the right kidney on 02/12/2024. He started on neoadjuvant chemotherapy 02/27/2024. He has had consultation with Dr. Lawrence at [facility] who has discussed radical cystoprostatectomy with possible continent diversion. He states he is scheduled to have a colonoscopy prior to procedure and tentative date for cystectomy in July. He feels he is tolerating the chemotheray well. I have evaluated the right nephrotomy tube site, no signes of infection, dressing changed. He has scheduled visits with my nurse to check nephrostomy. 12/27/2023--Brady is a 63-year-old male who is status post cystoscopy transurethral resection of bladder tumor on 12/12/2023. Preoperative CT scan of the abdomen and pelvis was significant for right hydronephrosis. At the time of the cystoscopy procedure I was unable to visualize the right ureteral orifice. I reviewed pathology results with the patient. Bladder tumor, transurethral resection: -Invasive urothelial carcinoma, high-grade -Tumor invades muscularis propria. I have discussed further treatment recommendations for neoadjuvant chemo with Oncology and evaluation for cystectomy, will referred to [facility], Dr. Lawrence. 11/22/2023--Brady is a very pleasant 63-year-old male patient of Dr. Rizzo. He has a past medical history hyperlipidemia, obesity, and carpal tunnel syndrome. He presents to the office today for a cystoscopy. Of note, patient was seen approximately 2 weeks ago as a new patient for gross hematuria that initially started 10/14. He had underwent imaging with PCP prior to his new patient appointment here at which time retroperitoneal ultrasound noted right-sided bladder mass with moderate right-sided hydronephrosis. This is likely responsible for the right sided hydronephrosis. Mildly enlarged prostate. Urine cytology from last office visit 11/14--Suspicious for high-grade urothelial carcinoma. He does report a 25-30 year smoking history of approximately 1 pack per day however quit approximately 13 years ago. He does report noting episodes of dysuria with gross hematuria he otherwise denies urinary urgency, urinary frequency, incontinence, nocturia, hematuria, foul smelling urine, changes to urinary stream, flank pain, fever, and or chills. He is happy with his current voiding parameters. He denies any known chemical exposure. In review of patient's chart it appears PSAs are as follows: 11/13--0.5, 10/14--0.8. In office cystoscopy performed: Large right bladder mass noted unable to differentiate UO. Discussed further treatment options with cystoscopy TURBT. Discussed risks and benefits at length. Discussed potential for right-sided ureteral stent placement given position of bladder tumor and retroperitoneal ultrasound noting right-sided hydronephrosis. All questions were answered. Discussed obtaining CT urogram for further assessment evaluation as well as labs [facility] Medical History Pulmonary embolism Dry skin Dyspnea on exertion Left wrist pain Stiffness of left wrist joint Elevated serum creatinine Elevated blood pressure reading Hematuria Bladder mass History of immune checkpoint inhibitor therapy Hypophysitis Adrenal insufficiency Hypothyroidism Port-A-Cath in place (02/16/24) History of blood transfusion Bladder cancer Obesity (BMI 30-39.9) Pure hypercholesterolemia Hyperlipemia Carpal tunnel syndrome Surgical History Mass of left axilla (05/31/24) Hx of colonoscopy Hx of cystoscopy History of surgery History of hand surgery History of ankle surgery History of cholecystectomy Family History Father Multiple sclerosis, primary progressive Mother No problems noted. 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 Current occupational exposures/hazards: No Cognitive needs: No Hearing needs: No Vision needs: Yes (Glasses) Review of Systems Const All systems reviewed & are unremarkable except as noted in HPI and below Reports no additional complaints Eyes Reports no additional complaints ENT Reports no additional complaints Card Reports no additional complaints Resp Reports no additional complaints GI Reports no additional complaints Reports as per HPI Musc Reports no additional complaints Skin/Breast Reports system reviewed and no additional complaints, except as documented Neuro Reports no additional complaints Psych Reports no additional complaints Endo Reports no additional complaints Phil/Lymph Reports no additional complaints Aller/Immun Reports no additional complaints Office Procedures Cystoscopy Consent Discussed risk and benefit or proposed procedure with the patient. Information consent for procedure given to the patient. Discussed technical aspects, risks, benefits and alternatives in full. Addressed all of the patient's questions and concerns regarding the procedure. The patient demonstrated knowledge and understanding. They wish to proceed with this procedure. Preparation The patient was prepped in the usual manner. A wind turbine erector was present and in the room. Genitalia was prepped with betadine solution in a sterile manner. Lidocaine Jelly 2% was placed into the urethra and 16Fr flexible Olympus cystoscope was inserted into the meatus after adequate lubrication. Procedure Time out per protocol performed. The flexible cystoscope is passed transurethrally: The bladder was inspected in its entirety with utilization retroflexion displaying: Trabeculation: NA Mucosal Erthema: Mild Orifices: left ureteral orifice visualized Urethra: normal Cystoscopy findings: prostatic urethra non obstructive, No gross papillary lesions observed in the bladder. [id number]-[id number] DISPOSABLE SCOPE URO-G FLEXIBLE SCOPE Procedure code (CPT) selection complete Office Meds lidocaine HCl 2 % mucosal jelly in applicator Performing Provider: Sangita Hopkins MD Performing Location: [facility] Administered by: Cate Roblero RN on 04/28/25 09:45 Dose Route Admin Location Dispensed Lot Number Expiration Date [facility] Scrap Crusher 10 mL intra-urethral 20 mL ciprofloxacin HCl 500 mg tablet Performing Provider: Sangita Hopkins MD Performing Location: [facility] Administered by: Cate Roblero RN on 04/28/25 09:45 Dose Route Admin Location Dispensed Lot Number Expiration Date [facility] Scrap Crusher 500 mg PO 1 tab phenazopyridine 200 mg tablet Performing Provider: Sangita Hopkins MD Performing Location: [facility] Administered by: Cate Roblero RN on 04/28/25 09:45 Dose Route Admin Location Dispensed Lot Number Expiration Date [employer] Scrap Crusher 200 mg PO 1 tab Assessment & Plan Assessment & Plan (1) CKD stage 3b, GFR 30-44 ml/min: Code(s): N18.32 - Chronic kidney disease, stage 3b Category: Medical (2) Malignant neoplasm metastatic from bladder: Code(s): C67.9 - Malignant neoplasm of bladder, unspecified Category: Surgical (3) Invasive carcinoma of urinary bladder: Code(s): C67.9 - Malignant neoplasm of bladder, unspecified Category: Medical (4) Hydronephrosis: Code(s): N13.30 - Unspecified hydronephrosis Category: Medical Plan Plan - Perform a right nephrostogram to assess contrast entry into the bladder. - Continue oncology follow-up for chemotherapy management. - Send urine for cytology and surveillance culture. Orders: Orders AMB Cystoscopy Today R32 - Unspecified urinary incontinence IR nephrostogram Today C67.9 - Malignant neoplasm of bladder, unspecified, N13.30 - Unspecified hydronephrosis Patient Instructions: The patient had an opportunity to ask questions regarding treatment plan. The patient expressed understanding and agreement with the above treatment plan. The patient is aware they should contact our office by phone for worsening of their current condition or the appearance of new symptoms. Compliance is encouraged with any medications and followup testing that is ordered. It is a privilege to be allowed the opportunity to participate in the urologic care of your patient. If you have any questions or concerns regarding treatment for the above conditions please do not hesitate to contact me. The office telephone contact is [phone]. This note is constructed in part using voice recognition software. While every effort has been made to ensure accuracy mandarin chinese teacher errors may have been included. Yours sincerely, Sangita Hopkins MD Scribe Plan - Not visible on output: Patient was informed and verbally consented to the use of an ambient scribe for clinic note documentation during this visit. Coding Level of Care Code Est Pt Level 4 (76016) Complex EM visit Add On G2211 Diagnoses CKD stage 3b, GFR 30-44 ml/min N18.32 Malignant neoplasm metastatic from bladder C67.9 Invasive carcinoma of urinary bladder C67.9 Hydronephrosis N13.30 CPT Codes Cystoscopy - CPT: 86986-[id number] ([id number])
== END 2025-04-28 10:29 | disposition home or self-care (01) ==
LOC: HO.HUSH 08:30
PROVIDERS: Visit Provider Urology
DX: N18.32 Chronic kidney disease, stage 3b (principal); N13.30 Unspecified hydronephrosis; C67.0 Malignant neoplasm of trigone of bladder; R32 Unspecified urinary incontinence; Z13.9 Encounter for screening, unspecified
CPT/HCPCS: 52000; 99214

== ENCOUNTER 2025-04-29 11:11 | Outpatient (REF) | payer MEDICARE, OTHER, SELFPAY ==
--- NOTE | ~2025-04-29 | XR_ITS ---
EXAMINATION: XR CHEST CLINICAL INFORMATION: davis, on chemo for ca COMPARISON: 01/22/2025. CT chest 03/18/2025. TECHNIQUE: 2 views of the chest were obtained. FINDINGS: Right chest port in place with tip terminating in the mid SVC. The cardiac, hilar, and mediastinal contours are normal. The lungs are clear bilaterally. There is no pneumothorax or pleural effusion. There is no focal osseous or soft tissue abnormality. XR/XR chest 2V IMPRESSION: No active pulmonary disease. Electronically signed by: Alexander Francis MD 04/29/2025 11:56 AM EDT
--- OUTSIDE RECORDS SUMMARY | 2025-04-29 12:19 | XMS_ITS | Encounter Summary ---
Author Organization [facility] Address [address] [place] [address] Care Team Providers Care Rail Splitter Name Role Phone Morris Rizzo Primary Care Provider [phone] Encounter Details Date Type Department Care Team (Late st Contact Info) Description 04/15/[address] [facility] [address] [facility], 5th [place] [address] Shola Arroyo MD [address] [place] [address] Social History Tobacco Use Types Packs/Day Years [...] on filedocumented in this encounter Care Teams Rail Splitter Relationship Specialty Start Date End Date Morris Rizzo [address] [place] [address] [place] [address] PCP - General Internal Medicine 01/09/24 documented as of this encounter
--- OUTSIDE RECORDS SUMMARY | 2025-04-29 12:19 | XMS_ITS | Encounter Summary ---
Author Organization [facility] Address [address] [place] [address] Care Team Providers Care Hammerer Name Role Phone Morris Rizzo MD Primary Care Provider [phone] Encounter Details Date Type Department Care Team (Late st Contact Info) Description 02/03/2025 Lab Requisition [facility] - Main Lab 299 [facility] [place] [address] Alexys Puentes MD [address] [place] [address] Chronic kidney disease, unspecified; Hyperlipidemia, unspecified; Thyrotoxicosis, [...] g/dL LAB [facility] Albumin 2.6(L) 3.2 - 5.0 g/dL LAB CHEMISTRY METHOD 02/04/2025 12:03 PM EDT [facility] Total Bilirubin 0.8 0.0 - 1.4 mg/dL LAB CHEMISTRY METHOD 02/04/2025 12:03 PM [facility] Bilirubin, Direct 0.2 0.0 - 0.3 mg/dL LAB CHEMISTRY METHOD 02/04/2025 12:03 PM [facility] Bilirubin, Indirect 0.6 0.0 - 1.1 mg/dL LAB CHEMISTRY METHOD 02/04/2025 12:03 PM [facility] ALT (SGPT) 52 10 - 60 unit/L LAB CHEMISTRY METHOD 02/04/2025 12:03 PM [facility] AST (SGOT) 27 10 - 42 unit/L LAB CHEMISTRY METHOD 02/04/2025 12:03 PM [facility] Alkaline Phosphatase 128(H) 42 - 121 unit/L LAB CHEMISTRY METHOD 02/04/2025 12:03 PM [facility] Blood Venous blood specimen / Unknown Venipuncture / Unknown 02/04/2025 8:05 AM EDT 02/04/2025 10:03 AM EDT us Alexys Puentse MD LAB BLOOD ORDERABLES Final Result [facility] [address] [place], [place] [address] [phone] * (ABNORMAL) Basic metabolic panel (02/04/2025 8:05 AM EDT) Sodium 138 133 - 145 mmol/L LAB CHEMISTRY METHOD 02/04/2025 12:03 PM [facility] Potassium 3.4(L) 3.5 - 5.5 mmol/L LAB CHEMISTRY METHOD 02/04/2025 12:03 PM [facility] Chloride 105 96 - 110 mmol/L LAB CHEMISTRY METHOD 02/04/2025 12:03 PM [facility] CO2 27 21 - 32 mmol/L LAB CHEMISTRY METHOD 02/04/2025 12:03 PM [facility] Anion Gap 6 3 - 11 LAB CHEMISTRY METHOD 02/04/2025 12:03 PM [facility] Glucose 75 70 - 100 mg/dL LAB CHEMISTRY METHOD 02/04/2025 12:03 PM [facility] BUN 34(H) 5 - 25 mg/dL LAB CHEMISTRY METHOD 02/04/2025 12:03 PM [facility] Creatinine 1.66(H) 0.70 - 1.30 mg/dL LAB CHEMISTRY METHOD 02/04/2025 12:03 PM [facility] eGFR 45(L) >=60 mL/min/1. 73m2 LAB CHEMISTRY METHOD 02/04/2025 12:03 PM [facility] Comment:Calculation based on the Chronic Kidney Disease Epidemiology Collaboration (CKD-EPI) equation refit without adjustment for race. BUN/Creatinine Ratio 20.5 LAB CHEMISTRY METHOD 02/04/2025 12:03 PM [facility] Calcium 8.9 8.5 - 10.5 mg/dL LAB CHEMISTRY METHOD 02/04/2025 12:03 PM [facility] Blood Venous blood specimen / Unknown Venipuncture / Unknown 02/04/2025 8:05 AM EDT 02/04/2025 10:03 AM EDT us Alexys Puentes MD LAB BLOOD ORDERABLES Final Result [facility] [address] [place] [address], [place] [phone] * (ABNORMAL) Complete blood count (02/04/2025 8:05 AM EDT) WBC 4.8 4.8 - 10.8 K/mcL LAB HEMETOLOGY METHOD 02/04/2025 11:16 AM EDT [facility] RBC 3.10(L) 4.50 - 5.50 M/mcL LAB HEMETOLOGY METHOD 02/04/2025 11:16 AM [facility] Hemoglobin 9.9(L) 13.5 - 17.5 g/dL LAB HEMETOLOGY METHOD 02/04/2025 11:16 AM [facility] Hematocrit 29.6(L) 42.0 - 54.0 % LAB HEMETOLOGY METHOD 02/04/2025 11:16 AM [facility] MCV 97.0 79.0 - 98.0 FL LAB HEMETOLOGY METHOD 02/04/2025 11:16 AM [facility] MCH 32.5(H) 27.0 - 32.0 pcg LAB HEMETOLOGY METHOD 02/04/2025 11:16 AM [facility] MCHC 33.4 32.0 - 37.0 g/dL LAB HEMETOLOGY METHOD 02/04/2025 11:16 AM [facility] RDW 19.0(H) 11.0 - 15.0 % LAB HEMETOLOGY METHOD 02/04/2025 11:16 AM [facility] Platelets 120(L) 130 - 400 K/mcL LAB HEMETOLOGY METHOD 02/04/2025 11:16 AM EDT [facility] MPV 10.3 7.0 - 11.0 FL LAB HEMETOLOGY METHOD 02/04/2025 11:16 AM EDT [facility] NRBC 0.6 <1.0 % LAB HEMETOLOG METHOD 02/04/2025 11:16 AM EDT [facility] NRBC Absolute 0.03 <0.10 K/mcL LAB HEMETOLOGY METHOD 02/04/2025 11:16 AM EDT [facility] Blood Venous blood specimen / Unknown Venipuncture / Unknown 02/04/2025 8:05 AM EDT 02/04/2025 10:03 AM EDT us Alexys Puentes MD LAB BLOOD ORDERABLES Final Result [facility] [address] [place] [address], documented in this encounter Visit Diagnoses Diagnosis Chronic kidney disease, unspecified Hyperlipidemia, unspecified Thyrotoxicosis, unspecified without thyrotoxic crisis or storm documented in this encounter Care Teams Hammerer Relationship Specialty Start Date End Date Morris Rizzo MD [address] [place] [address] PCP - General Internal Medicine 05/27/22 documented as of this encounter
--- OUTSIDE RECORDS SUMMARY | 2025-04-29 12:19 | XMS_ITS | Patient Health Record ---
Author Organization [facility] Address [address] [place] [address] Care Team Providers Care Nanotechnology Engineering Technologist Name Role Phone So MCALLISTER, Primary Care Provider Unavaila Jose Doty Unavailable [phone] Eamon MCALLISTER, Zamzam Unavailable Unavailable Reason For [...] Status Risk Notes Problem Colon cancer screening (986129219) Colon cancer screening (Z12.11) Active confirmed Problem 44778510 Epigastric abdominal pain (R10.13) Active confirmed Problem 271816730 Encounter for screening for malignant neoplasm of colon (Z12.11) Active confirmed Problem [id number] Preprocedural examination (Z01.818) Active confirmed Encounters Encounter Location Date Provider Diagnosis [facility] [address] [place] [address] 05/27/2024 Jose Arevalo [facility] [address] [place] [address] 05/30/2024 Jose Arevalo Plan Of Treatment Future Test Test Name Order Date UPPER GI ENDOSCOPY 08/23/2017 COLONOSCOPY 04/10/2019 COLONOSCOPY 04/26/2024 Insurance Providers Payer Name Payer Address Payer Phone Subscriber Number Group Number Insured Name Patient Relationship to Insured Coverage Start Date Coverage End Date MEDICARE OF [place] [address] [place] [address] [id number] JOSE CUBA Self - patient is the insured [employer] [facility] [address] [place] [address] [id number] JOSE CUBA Self - patient is the insured Medical (General) History Medical History History ICD Code Denies [place],DM,CVA,Lung disease,renal dise ase Hyperlipidemia Screening colonoscopy in [place] with Dr. Johansen revealed only hyperplastic polyps. EGD in 08/2017-small HH, normal duodenal and gastric biopsies Surgical History Surgery Date(Month/Year) Lap cholecystectomy--acalculous cholecys titis-Dr. Knutson 05/2017 Finger- infection drained 1969
== END 2025-04-29 11:12 | disposition home or self-care (01) ==
LOC: HO.XRAY 11:11
PROVIDERS: Visit Provider Internal Medicine
DX: R05.9 Cough, unspecified (principal)
CPT/HCPCS: 71046

== ENCOUNTER → 2025-04-29 11:35 | Outpatient (BNV) | payer MEDICARE, OTHER, SELFPAY | PROVIDERS: Visit Provider Radiology Diagnostic Radiology | DX: R05.9 Cough, unspecified (principal); C80.1 Malignant (primary) neoplasm, unspecified | CPT/HCPCS: 71046 ==

== ENCOUNTER 2025-04-30 14:38 | Outpatient (REF) | payer MEDICARE, OTHER, SELFPAY ==
--- NOTE | ~2025-04-30 | US_ITS ---
CLINICAL HISTORY: Rising serum creatinine US of kidneys Comparison: None provided Findings: Right kidney upper and lower poles are not well visualized due to limited acoustic window, right kidney appears small with mild diffuse cortical thinning, 8.2 cm in length, no mass, calculus or hydronephrosis. Left kidney is normal in size, echogenicity and morphology, 9.8 cm in length. No calculus, mass or hydronephrosis. Limited color Doppler demonstrates unremarkable bilateral blood flow. Impression: Mildly atrophic right kidney. This document has been electronically signed by: Rochelle Perez MD on 05/01/2025 13:34:22
--- OUTSIDE RECORDS SUMMARY | 2025-04-30 15:09 | XMS_ITS | Encounter Summary ---
Author Organization [facility] Address [address] [place] [address] Care Team Providers Care Enrollment Advisor Name Role Phone Morris Rizzo MD Primary Care Provider [phone] Encounter Details Date Type Department Care Team (Late st Contact Info) Description 02/03/2025 Lab Requisition [facility] - Main Lab 299 [facility] [place] [address] Alexys Puentes MD [address] [place] [address] Chronic kidney disease, unspecified; Hyperlipidemia, unspecified; Thyrotoxicosis, [...] g/dL LAB CHEMISTRY [facility] Albumin 2.6(L) 3.2 - 5.0 g/dL LAB CHEMISTRY METHOD 02/04/2025 12:03 PM EDT [facility] Total Bilirubin 0.8 0.0 - 1.4 mg/dL LAB CHEMISTRY METHOD 02/04/2025 12:[address] [facility] Bilirubin, Direct 0.2 0.0 - 0.3 mg/dL LAB CHEMISTRY METHOD 02/04/2025 12:[address] [facility] Bilirubin, Indirect 0.6 0.0 - 1.1 mg/dL LAB CHEMISTRY METHOD 02/04/2025 12:[address] [facility] ALT (SGPT) 52 10 - 60 unit/L LAB CHEMISTRY METHOD 02/04/2025 12:[address] [facility] AST (SGOT) 27 10 - 42 unit/L LAB CHEMISTRY METHOD 02/04/2025 12:[address] [facility] Alkaline Phosphatase 128(H) 42 - 121 unit/L LAB CHEMISTRY METHOD 02/04/2025 12:[address] [facility] Blood Venous blood specimen / Unknown Venipuncture / Unknown 02/04/2025 8:05 AM EDT 02/04/2025 10:03 AM EDT us Alexys Puentes MD LAB BLOOD ORDERABLES Final Result [facility] [address] [place], [place] [address] [phone] * (ABNORMAL) Basic metabolic panel (02/04/2025 8:05 AM EDT) Sodium 138 133 - 145 mmol/L LAB CHEMISTRY METHOD 02/04/2025 12:[address] [facility] Potassium 3.4(L) 3.5 - 5.5 mmol/L LAB CHEMISTRY METHOD 02/04/2025 12:[address] [facility] Chloride 105 96 - 110 mmol/L LAB CHEMISTRY METHOD 02/04/2025 12:[address] [facility] CO2 27 21 - 32 mmol/L LAB CHEMISTRY METHOD 02/04/2025 12:[address] [facility] Anion Gap 6 3 - 11 LAB CHEMISTRY METHOD 02/04/2025 12:[address] [facility] Glucose 75 70 - 100 mg/dL LAB CHEMISTRY METHOD 02/04/2025 12:[address] [facility] BUN 34(H) 5 - 25 mg/dL LAB CHEMISTRY METHOD 02/04/2025 12:[address] [facility] Creatinine 1.66(H) 0.70 - 1.30 mg/dL LAB CHEMISTRY METHOD 02/04/2025 12:[address] [facility] eGFR 45(L) >=60 mL/min/1. 73m2 LAB CHEMISTRY METHOD 02/04/2025 12:[address] [facility] Comment:Calculation based on the Chronic Kidney Disease Epidemiology Collaboration (CKD-EPI) equation refit without adjustment for race. BUN/Creatinine Ratio 20.5 LAB CHEMISTRY METHOD 02/04/2025 12:[address] [facility] Calcium 8.9 8.5 - 10.5 mg/dL LAB CHEMISTRY METHOD 02/04/2025 12:[address] [facility] Blood Venous blood specimen / Unknown Venipuncture / Unknown 02/04/2025 8:05 AM EDT 02/04/2025 10:03 AM EDT us Alexys Puentes MD LAB BLOOD ORDERABLES Final Result [facility] [address] [place] [address], [place] [phone] * (ABNORMAL) Complete blood count (02/04/2025 8:05 AM EDT) WBC 4.8 4.8 - 10.8 K/mcL LAB HEMETOLOGY METHOD 02/04/2025 11:16 AM EDT [facility] RBC 3.10(L) 4.50 - 5.50 M/mcL LAB HEMETOLOGY METHOD 02/04/2025 11:[address] [facility] Hemoglobin 9.9(L) 13.5 - 17.5 g/dL LAB HEMETOLOGY METHOD 02/04/2025 11:[address] [facility] Hematocrit 29.6(L) 42.0 - 54.0 % LAB HEMETOLOGY METHOD 02/04/2025 11:[address] [facility] MCV 97.0 79.0 - 98.0 FL LAB HEMETOLOGY METHOD 02/04/2025 11:[address] [facility] MCH 32.5(H) 27.0 - 32.0 pcg LAB HEMETOLOGY METHOD 02/04/2025 11:[address] [facility] MCHC 33.4 32.0 - 37.0 g/dL LAB HEMETOLOGY METHOD 02/04/2025 11:[address] [facility] RDW 19.0(H) 11.0 - 15.0 % LAB HEMETOLOGY METHOD 02/04/2025 11:[address] [facility] Platelets 120(L) 130 - 400 [...] Final Result [facility] [address] [place] [address], documented in this encounter Visit Diagnoses Diagnosis Chronic kidney disease, unspecified Hyperlipidemia, unspecified Thyrotoxicosis, unspecified without thyrotoxic crisis or storm documented in this encounter Care Teams Enrollment Advisor Relationship Specialty Start Date End Date Morris Rizzo MD [address] [place] [address] PCP - General Internal Medicine 05/27/22 documented as of this encounter
--- OUTSIDE RECORDS SUMMARY | 2025-04-30 15:09 | XMS_ITS | Encounter Summary ---
Author Organization [facility] Address [address] [place] [address] Care Team Providers Care Manager Insurance Name Role Phone Morris Rizzo Primary Care Provider [phone] Encounter Details Date Type Department Care Team (Late st Contact Info) Description 04/15/2024 Orders Only [facility] [place] [address] [facility], 5th [place] [address] Shola Arroyo MD [address] [place] [address] Social History Tobacco Use Types Packs/Day Years [...] on filedocumented in this encounter Care Teams Manager Insurance Relationship Specialty Start Date End Date Morris Rizzo [address] [place] [address] [place] [address] PCP - General Internal Medicine 01/09/24 documented as of this encounter
== END 2025-04-30 14:39 | disposition home or self-care (01) ==
LOC: HO.HMGCX 14:38
PROVIDERS: Visit Provider Internal Medicine
DX: C67.9 Malignant neoplasm of bladder, unspecified (principal)
CPT/HCPCS: 76775

== ENCOUNTER → 2025-04-30 14:40 | Outpatient (BNV) | payer MEDICARE, OTHER, SELFPAY | PROVIDERS: Visit Provider Radiology Diagnostic Radiology | DX: R94.4 Abnormal results of kidney function studies (principal) | CPT/HCPCS: 76775 ==

== ENCOUNTER 2025-05-09 06:08 | Outpatient (REF) | payer MEDICARE, OTHER, SELFPAY ==
--- OUTSIDE RECORDS SUMMARY | 2025-05-07 07:11 | XMS_ITS | Encounter Summary ---
Author Organization [facility] Address [address] [place] [address] Care Team Providers Care Manometer Technician Name Role Phone Morris Rizzo MD Primary Care Provider [phone] Reason for Referral * Imaging (Routine) - Authorized Specialty Diagnoses / Procedures Referred By Contac t Referred To Contact Radiology Diagnoses Malignant neoplasm of bladder, unspecified (CMS/HCC V24, CMS/HCC V28) Malignant neoplasm of lateral wall of bladder (CMS/HCC V24, CMS/HCC V28) Procedures PET CT Skull to Mid Thigh Subsequent Antonia Moon MD [address] [place] [address] HEMATOLOGY / [place] [address] Phone: tel: fax: [facility] Referral ID Status Reason Start Date Expiration Date V isits Requested Visits Authorized [id number] Authorized 05/06/2025 05/06/2026 1 1 Reason for Visit * Imaging (Routine) - Authorized Specialty Diagnoses / Procedures Referred By Contac t Referred To Contact Radiology Diagnoses Malignant neoplasm of bladder, unspecified (CMS/HCC V24, CMS/HCC V28) Malignant neoplasm of lateral wall of bladder (CMS/HCC V24, CMS/HCC V28) Procedures PET CT Skull to Mid Thigh Subsequent Antonia Moon MD [address] [place] [address] HEMATOLOGY / [place] [address] Phone: tel: fax: [facility] Referral ID Status Reason Start Date Expiration Date V isits Requested Visits Authorized [id number] Authorized 05/06/2025 05/06/2026 1 1 Encounter Details Date Type Department Care Team (Latest Contact Info) Description 05/07/2025 7:11 AM EDT Hospital Encounter [facility] PET Scan [address] [place] [id number] Malignant neoplasm of bladder, unspecified (CMS/HCC V24, CMS/HCC V28); Malignant neoplasm of lateral wall of bladder (CMS/HCC V24, CMS/HCC V28) Social History Tobacco Use Types Packs/Day Years [...] Procedure Name Priority Date/Time Associated Diagnosis Comments PET CT SKULL TO MID THIGH SUBSEQUENT Routine 05/07/2025 9:42 AM EDT Malignant neoplasm of bladder, unspecified (CMS/HCC V24, CMS/HCC V28) Malignant neoplasm of lateral wall of bladder (CMS/HCC V24, CMS/HCC V28) documented in this encounter Results * PET CT Skull to Mid Thigh Subsequent (05/07/2025 9:42 AM EDT) Anatomical Region Laterality Modality Body Radiographic [place] ging 05/08/2025 11:1 9 AM EDT Impressions 05/08/2025 11:29 AM EDT No PET/CT evidence of metastatic disease. -------- FINAL REPORT -------- Dictated By: Lorena Hagen Dictated Date: 05/08/2025 11:19 ET Assigned Physician: Lorena Hagen Reviewed and Electronically Signed By: Lorena Hagen Signed Date: 05/08/2025 11:29 ET Workstation ID: [id number] Transcribed By: Self Edit Transcribed Date: 05/08/2025 11:19 ET Narrative 05/08/2025 11:29 AM EDT INDICATION: Bladder carcinoma, subsequent treatment strategy. History of metastatic disease. Prior relevant studies: Prior outside chest CTs from March 18 as well as January 10, [address] scan of the abdomen from January 10, 2025 reviewed. Only a portion of PET/CT scan from December 03, 2024 made available for review including the CT axial and coronal images as well as a single axial series however this images are significantly blurry possibly secondary to an method used for postprocessing and therefore provides very limited information. There is no current method available for postprocessing these images. Radiopharmaceutical: 11.5 mCi of F-18 FDG IV. Blood glucose: 116 mg/dl. PROCEDURE: Routine body FDG PET-CT imaging was performed from the skull base to the mid thighs and reconstructed in axial, coronal, and sagittal planes at the computer workstation with fused data from both the PET imaging study and attenuation correction CT. The CT portion of the examination was done strictly for attenuation correction and is not a true diagnostic CT examination. CTDI: 10.73 mGy FINDINGS: HEAD AND NECK: No abnormal FDG activity. THORAX: No abnormal FDG activity. Well-positioned right chest wall Port-A-Cath. No abnormal activity in the left axillary region. ABDOMEN/PELVIS: No abnormal FDG activity. Well-positioned right-sided percutaneous nephrostomy tube without hydronephrosis. No abnormal activity in the left gluteal region. Activity noted along the right colon corresponding to area of nondistention most likely representing physiological muscular contraction FDG max of 5.1. MUSCULOSKELETAL: No abnormal FDG activity. Procedure Note Lorena Hagen MD - 05/08/2025 INDICATION: Bladder carcinoma, subsequent treatment strategy. History ofmetastatic disease. Prior relevant studies: Prior outside chest CTs from March 18 as well asM20[address] scan of the abdomen from January 10, 2025reviewed. Only a portion of PET/CT scan from December 03, 2024 madeavailable for review including the CT axial and coronal images as well asa single axial series however this images are significantly blurrypossibly secondary to an method used for postprocessing and thereforeprovides very limited information. There is no current method availablefor postprocessing these images. Radiopharmaceutical: 11.5 mCi of F-18 FDG IV. Blood glucose: 116 mg/dl. PROCEDURE: Routine body FDG PET-CT imaging was performed from the skullbase to the mid thighs and reconstructed in axial, coronal, and sagittalplanes at the computer workstation with fused data from both the PETimaging study and attenuation correction CT. The CT portion of theexamination was done strictly for attenuation correction and is not a truediagnostic CT examination. CTDI: 10.73 mGy FINDINGS: HEAD AND NECK: No abnormal FDG activity. THORAX: No abnormal FDG activity. Well-positioned right chest wall Port-A-Cath. No abnormal activity in the left axillary region. ABDOMEN/PELVIS: No abnormal FDG activity. Well-positioned right-sided percutaneous nephrostomy tube withouthydronephrosis. No abnormal activity in the left gluteal region. Activity noted along the right colon corresponding to area ofnondistention most likely representing physiological muscular contractionFDG max of 5.1. MUSCULOSKELETAL: No abnormal FDG activity. IMPRESSION: No PET/CT evidence of metastatic disease. -------- FINAL REPORT -------- Dictated By: Lorena Hagen Dictated Date: 05/08/2025 11:19 ET Assigned Physician: Lorena Hagen Reviewed and Electronically Signed By: Lorena Hagen Signed Date: 05/08/2025 11:29 ET Workstation ID: [id number] Transcribed By: Self Edit Transcribed Date: 05/08/2025 11:19 ET Antonia Moon MD [facility] PROCEDURES Final Result documented in this encounter Visit Diagnoses Diagnosis Malignant neoplasm of bladder, unspecified (CMS/HCC V24, CMS/HCC V28) Malignant neoplasm of lateral wall of bladder (CMS/HCC V24, CMS/HCC V28) Malignant neoplasm of lateral wall of urinary bladder documented in this encounter Administered Medications Inactive Administered Medications - up to 3 most recent administrations Medication Order MAR Action Action Date Dose Rate Site F-18 FDG pet diag radio-isotope injection 11.5 millicurie 11.5 millicurie, intravenous, Once in imaging, Starting on Mon05/07/25 at 0815, For 1 dose Given 05/07/2025 8:05 AM EDT 11.5 millicuries Left Antecubital documented in this encounter Orders Medications Ordered That Deep ht Not Have Been Administered Count Last Ordered Date First Ordered Date F-18 FDG pet diag radio-isot ope injection 11.5 millicurie 1 05/07/2025 documented in this encounter Care Teams Manometer Technician Relationship Specialty Start Date End Date Morris Rizzo MD [address] [place] [address] PCP - General Internal Medicine 05/27/22 documented as of this encounter
--- OUTSIDE RECORDS SUMMARY | 2025-05-09 06:10 | XMS_ITS | Patient Health Record ---
Author Organization [facility] Address [address] [place] [address] Care Team Providers Care Portrait Artist Name Role Phone So MCALLISTER, Primary Care Provider Unavaila Jose Doty Unavailable [phone] Eamon MCALLISTER, Zamzam Unavailable Unavailable Reason For [...] Status Risk Notes Problem Colon cancer screening (795118505) Colon cancer screening (Z12.11) Active confirmed Problem [id number] Epigastric abdominal pain (R10.13) Active confirmed Problem [id number] Encounter for screening for malignant neoplasm of colon (Z12.11) Active confirmed Problem [id number] Preprocedural examination (Z01.818) Active confirmed Encounters Encounter Location Date Provider Diagnosis [facility] [address] [place] [address] 05/27/2024 Jose Arevalo [facility] [address] [place] [address] 05/30/2024 Jose Arevalo Plan Of Treatment Future Test Test Name Order Date UPPER GI ENDOSCOPY 08/23/2017 COLONOSCOPY 04/10/2019 COLONOSCOPY 04/26/2024 Insurance Providers Payer Name Payer Address Payer Phone Subscriber Number Group Number Insured Name Patient Relationship to Insured Coverage Start Date Coverage End Date MEDICARE OF [place] [address] [facility] [place] [address] [id number] JOSE CUBA Self - patient is the insured [employer] [address] [place] [address] [id number] JOSE CUBA Self - patient is the insured Medical (General) History Medical History History ICD Code Denies [place],DM,CVA,Lung disease,renal dise ase Hyperlipidemia Screening colonoscopy in Mar with Dr. Johansen revealed only hyperplastic polyps. EGD in 08/2017-small HH, normal duodenal and gastric biopsies Surgical History Surgery Date(Month/Year) Lap cholecystectomy--acalculous cholecys titis-Dr. Knutson 05/2017 Finger- infection drained 1969
--- OUTSIDE RECORDS SUMMARY | 2025-05-09 06:10 | XMS_ITS | Clinical Summary ---
Author Organization [facility] Address [address] [place], [place] [address] Phone Care Team Providers Care Filling Station Laborer Name Role Phone Unavailable Primary Care Provider Unavailabl e Social History Tobacco Use Types Packs/Day Years Used Date Smoking Tobacco: Never Assessed Education Answer Date Recorded Are you interested in more education? Not on aleksander e 10/21/2024 Are you concerned about learning? Not on file 10/21/2024 No 10/21/2024 No 10/21/2024 Digital Access Answer Date Recorded No 10/21/2024 No 10/21/2024 Reliable internet access at home? Not on file 10/21/2024 Device with a working camera? Not on file Sex and Gender Information Value Date Recorded Sex Assigned at Not on file Legal Sex Male 4:22 PM EST Gender Identity Not on file Sexual Orientation Not on file Plan of Treatment Not on file Medical Devices Not on file [place] [id number] MEDICARE PART A & B MEDICARE PART A & B MEDICARE PART A & B MEDICARE PART A & B MEDICARE PART A & B Additional Source Comments The information contained in this document represents components of the legal health record. It is not the complete legal health record.[facility]
[2025-05-09 06:21] LABS: MANUAL DIFF FLAG NO
[2025-05-09 06:31] LABS: Hematocrit 32.2 % (42.0-52.0); Hemoglobin 10.9 g/dl (14.0-18.0); Imm Gran Abs Auto 0.05 X10*3/uL (0.00-0.03); Imm Gran Pct Auto 1.0 % (0.0-0.4); Lymphocytes Absolute Auto 1.6 X10*3/uL (1.2-4.9); Mean Corpuscular HGB Conc 33.9 g/dl (31.0-36.0); Mean Corpuscular Hemoglobin 33.4 pg (27.0-33.0); Mean Corpuscular Volume 98.8 fL (80.0-98.0); NRBC Abs Auto 0.000 X10*3/uL (0.0-0.012); NRBC Pct Auto 0.0 /100WBC (0.0-0.2); Platelet Count 192 X10*3/uL (160-400); Red Blood Count 3.26 X10*6/uL (4.60-5.80); White Blood Count 4.9 X10*3/uL (4.8-10.8)
[2025-05-09 06:45] LABS: Alanine Aminotransferase 15 U/L (0-40); Albumin Level 3.9 g/dL (3.5-5.0); Alkaline Phosphatase 94 U/L (39-117); Anion Gap 13 (12-20); Aspartate Amino Transferase 33 U/L (5-37); Blood Urea Nitrogen 27 mg/dL (9-16); Calcium 9.4 mg/dL (8.4-10.2); Carbon Dioxide 23 mmol/L (22-29); Chloride 109 mmol/L (96-108); Estimated Glomerular Filt Rate 34; Magnesium 1.7 mg/dL (1.6-2.6); Potassium 3.7 mmol/L (3.3-5.1); Sodium 141 mmol/L (135-145); Total Protein 6.6 g/dL (6.5-8.0)
== END 2025-05-09 06:09 | disposition home or self-care (01) ==
LOC: HO.LAB 06:08
PROVIDERS: Visit Provider Internal Medicine
DX: C67.9 Malignant neoplasm of bladder, unspecified (principal)
CPT/HCPCS: 36415; 80053; 83735; 85025

== ENCOUNTER 2025-05-14 09:33 | Outpatient (REF) | payer MEDICARE, OTHER, SELFPAY ==
[2025-05-14 15:03] LABS: Chlamydia pneumoniae PCR Not Detected (Not Detect.); Coronavirus 229E PCR Not Detected (Not Detect.); Coronavirus HKU1 PCR Not Detected (Not Detect.); Coronavirus NL63 PCR Not Detected (Not Detect.); Coronavirus OC43 PCR Not Detected (Not Detect.); RSV PCR Not Detected (Not Detect.); Rhino/Enterovirus PCR Not Detected (Not Detect.)
[2025-05-14 15:12] LABS: Influenza A H1 PCR Not Detected (Not Detect.); Influenza A H1-2009 PCR Not Detected (Not Detect.); Influenza A H3 PCR Not Detected (Not Detect.); SARS-CoV-2 PCR Not Detected (Not Detect.)
== END 2025-05-14 09:34 | disposition home or self-care (01) ==
LOC: HO.LNP 09:33
PROVIDERS: Visit Provider Physician Assistant Medical
DX: R05.3 Chronic cough (principal); J06.9 Acute upper respiratory infection, unspecified; Z20.822 Contact with and (suspected) exposure to COVID-19; Z87.891 Personal history of nicotine dependence; Z79.01 Long term (current) use of anticoagulants; Z79.52 Long term (current) use of systemic steroids
CPT/HCPCS: 87633; 99212

== ENCOUNTER 2025-05-14 09:33 | Outpatient (AMB) | payer MEDICARE, OTHER, SELFPAY ==
--- OUTSIDE RECORDS SUMMARY | 2025-05-07 07:11 | XMS_ITS | Encounter Summary ---
Author Organization [facility] Address [address] [place] [address] Care Team Providers Care Carboy Filler Name Role Phone Morris Rizzo MD Primary Care Provider [phone] Reason for Referral * Imaging (Routine) - Closed Specialty Diagnoses / Procedures Referred By Contac t Referred To Contact Radiology Diagnoses Malignant neoplasm of bladder, unspecified (CMS/HCC V24, CMS/HCC V28) Malignant neoplasm of lateral wall of bladder (CMS/HCC V24, CMS/HCC V28) Procedures PET CT Skull to Mid Thigh Subsequent Antonia Moon MD [address] [place] [address] HEMATOLOGY / [place] [address] Phone: tel: fax: [facility] Referral ID Status Reason Start Date Expiration Date Visits Re quested Visits Authorized [id number] Closed 05/06/2025 05/06/2026 1 1 Reason for Visit * Imaging (Routine) - Closed Specialty Diagnoses / Procedures Referred By Contac t Referred To Contact Radiology Diagnoses Malignant neoplasm of bladder, unspecified (CMS/HCC V24, CMS/HCC V28) Malignant neoplasm of lateral wall of bladder (CMS/HCC V24, CMS/HCC V28) Procedures PET CT Skull to Mid Thigh Subsequent Antonia Moon MD [address] [place] [address] HEMATOLOGY / [place] [address] Phone: tel: fax: [facility] Referral ID Status Reason Start Date Expiration Date Visits Re quested Visits Authorized [id number] Closed 05/06/2025 05/06/2026 1 1 Encounter Details Date Type Department Care Team (Latest Contact Info) Description 05/07/2025 7:11 AM EDT Hospital Encounter [facility] PET Scan [address] [place] [phone] Malignant neoplasm of bladder, unspecified (CMS/HCC V24, [...] Signed Date: 05/08/2025 11:29 ET Workstation ID: [id number] Transcribed By: Self Edit Transcribed Date: 05/08/2025 [...] Signed Date: 05/08/2025 11:29 ET Workstation ID: [id number] Transcribed By: Self Edit Transcribed Date: 05/08/2025 11:19 ET Antonia Moon MD [facility] PROCEDURES Final Result documented in this encounter [...] 05/07/2025 documented in this encounter Care Teams Carboy Filler Relationship Specialty Start Date End Date Morris Rizzo MD [address] [place] [address] PCP - General Internal Medicine 05/27/22 documented as of this encounter
--- NOTE | 2025-05-14 09:39 | AM.OFFWIN_ITS ---
Intake Vital Signs 05/14/25 09:42 Height 6 ft 2 in Weight 233 lb BMI 29.9 BP 100/76 Blood Pressure Location Rt brachial Position Sitting Pulse 76 Pulse Source Pulse Oximeter Temp 97.9 F Temp Source Oral Pulse Oximetry (%) 97 Oxygen Delivery Method Room Air Intake Visit Reasons: EP-coughing spasms Intake Note: presents with off/on coughing spells for about 6-8 weeks. denies chest pain. xray done recently at [facility] Patient Tobacco Use Status: Former Tobacco user Allergies No Known Allergies (No Known Allergies*) Allergy (Verified 05/14/25 09:45) Do you need a note to return to daycare/school/sports/work: No HPI HPI Comments History of Present Illness Details History of Present Illness - The patient is a 64-year-old male pres enting with coughing spasms. - The coughing spasms began six to eight weeks ago, occurring randomly without identifiable triggers. - The patient occasionally produces phle gm and experiences severe episodes that induce a sensation of vomiting. - There are no associated symptoms such as fever, chills, congestion, or runny nose, and the patient denies smoking, asthma, COPD, or reflux. - A chest x-ray conducted three weeks ag o showed no acute findings. - The patient is on hydrocortisone table ts and possesses an albuterol inhaler, which he has not tried. - He had a CXR on 04/29 and it was negativ e. - A blood clot was identified in the xiomara g a few months ago, and the patient is on Eliquis for anticoagulation. - He has no edema, CP, SOB, cold symptom s, wheezing, CARROLL, or abd pain. Physical Exam General: Cooperative, healthy appearing, comfortable, no acute distress and well developed Orientation: Patient oriented x3 Ears: Hearing grossly normal bilaterally Nose: Normal external nose present Face and sinus: Normal facial exam Neck: Normal visual inspection and Yes full ROM. No lymphadenopathy noted. Respiratory: Normal respiratory effort and able to speak in complete sentences. Clear to auscultation bilaterally, no wheezing noted. No rales or rhonchi noted. Cardiovascular: Regular rate and rhythm. Normal S1 and S2 GI: Normal to inspection. Soft to palpation and nontender Skin: No rashes or lesions noted Extremities: Normal to inspection, no edema noted. Patient was informed and verbally consented to the use of an ambient scribe for clinic note documentation during this visit. [facility] Medical History Pulmonary embolism Dry skin Dyspnea on exertion Left wrist pain Stiffness of left wrist joint Elevated serum creatinine Elevated blood pressure reading Hematuria Bladder mass History of immune checkpoint inhibitor therapy Hypophysitis Adrenal insufficiency Hypothyroidism Port-A-Cath in place (02/16/24) History of blood transfusion Bladder cancer Obesity (BMI 30-39.9) Pure hypercholesterolemia Hyperlipemia Carpal tunnel syndrome Surgical History Mass of left axilla (05/31/24) Hx of colonoscopy Hx of cystoscopy History of surgery History of hand surgery History of ankle surgery History of cholecystectomy Family History Father Multiple sclerosis, primary progressive Mother No problems noted. 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 Current occupational exposures/hazards: No Cognitive needs: No Hearing needs: No Vision needs: Yes (Glasses) Review of Systems Const All systems reviewed & are unremarkable except as noted in HPI and below Physical Exam Vital Signs: Last Vital Signs Temp 97.9 F 05/14/25 09:42 Pulse 76 05/14/25 09:42 BP 100/76 05/14/25 09:42 Pulse Ox 97 05/14/25 09:42 Oxygen Delivery Method Room Air 05/14/25 09:42 BMI result Body Mass Index 29.9 Assessment & Plan Assessment & Plan (1) Cough: Code(s): R05.9 - Cough, unspecified Qualifiers: Cough type: chronic Qualified Code(s): R05.3 - Chronic cough Plan Most likely bronchospasm vs covid vs RSV vs flu, unlikely CHF, GERD and he is not on an CELESTINE Plan - Use Albuterol to control coughing spasms. - Continue with hydrocortisone - Prescribe cough medicine to alleviate coughing episodes. - Reviewed the CXR from 04/29 - Perform a respiratory panel to further investigate the cause of the cough. - Follow up with a felting machine operator on May 26 for further evaluation of the blood clot in the lung. Orders: Orders Resp Pathogen Panel - [facility] Today J06.9 - Acute upper respiratory infection, unspecified Medications: New benzonatate 100 mg PO bid-tid PRN 21 caps 0RF Cough 7 days Coding Level of Care Code Est Pt Level 4 (34749) Diagnoses Chronic cough R05.3 Cough type: chronic
[2025-05-14 09:42] VITALS: BP 100/76; PULSE 76; TEMP 36.6; O2SAT 97; BMI 29.9
--- OUTSIDE RECORDS SUMMARY | 2025-05-14 10:03 | XMS_ITS | Patient Health Record ---
Author Organization [facility] Address [address] [place] [address] Care Team Providers Care Tassel Maker Name Role Phone So MCALLISTER, Primary Care Provider Unavaila Jose Doty Unavailable [phone] Eamon MCALLISTER, Zamzam Unavailable Unavailable Reason For [...] Status Risk Notes Problem Colon cancer screening (347654115) Colon cancer screening (Z12.11) Active confirmed Problem 74937176 Epigastric abdominal pain (R10.13) Active confirmed Problem 367841241 Encounter for screening for malignant neoplasm of colon (Z12.11) Active confirmed Problem [id number] Preprocedural examination (Z01.818) Active confirmed Encounters Encounter Location Date Provider Diagnosis [facility] [address] [place] [address] 05/27/2024 Jose Arevalo [facility] [address] [place] [address] 05/30/2024 Jose Arevalo Plan Of Treatment Future Test Test Name Order Date UPPER GI ENDOSCOPY 08/23/2017 COLONOSCOPY 04/10/2019 COLONOSCOPY 04/26/2024 Insurance Providers Payer Name Payer Address Payer Phone Subscriber Number Group Number Insured Name Patient Relationship to Insured Coverage Start Date Coverage End Date MEDICARE OF [place] [address] [facility] [address] [id number] JOSE CUBA Self - patient is the insured [employer] [address] [place] [address] [id number] JOSE CUBA Self - patient is the insured Medical (General) History Medical History History ICD Code Denies [place],DM,CVA,Lung disease,renal dise ase Hyperlipidemia Screening colonoscopy in Mar with Dr. Johansen revealed only hyperplastic polyps. EGD in 08/2017-small HH, normal duodenal and gastric biopsies Surgical History Surgery Date(Month/Year) Lap cholecystectomy--acalculous cholecys titis-Dr. Knutson 05/2017 Finger- infection drained 1969
--- OUTSIDE RECORDS SUMMARY | 2025-05-14 10:03 | XMS_ITS | Encounter Summary ---
Author Organization [facility] Address [address] [place] [address] Care Team Providers Care Swaging Machine Operator Name Role Phone Morris Rizzo Primary Care Provider [phone] Encounter Details Date Type Department Care Team (Late st Contact Info) Description 04/15/2024 Orders Only [facility] [address], 5th [place] [address] Shola Arroyo MD [address] [place] [address] Social History Tobacco Use Types Packs/Day Years [...] on filedocumented in this encounter Care Teams Swaging Machine Operator Relationship Specialty Start Date End Date Morris Rizzo [address] [place] [address] [place] [address] PCP - General Internal Medicine 01/09/24 documented as of this encounter
--- OUTSIDE RECORDS SUMMARY | 2025-05-14 10:03 | XMS_ITS | Clinical Summary ---
Author Organization [facility] Address [address] [place], [place] [id number] Phone Care Team Providers Care Baggagemaster Name Role Phone Unavailable Primary Care Provider [...] Insurance [place] [address] MEDICARE PART A & B MEDICARE PART A & B MEDICARE PART A & B MEDICARE PART A & B MEDICARE PART A & B Additional Source Comments The information contained in this document represents components of the legal health record. It is not the complete legal health record.[facility]
== END 2025-05-14 11:00 | disposition home or self-care (01) ==
PROVIDERS: Visit Provider Physician Assistant Medical
DX: R05.3 Chronic cough (principal)

== ENCOUNTER 2025-05-16 06:29 | Outpatient (REF) | payer MEDICARE, OTHER, SELFPAY ==
--- OUTSIDE RECORDS SUMMARY | 2025-05-16 06:32 | XMS_ITS | Patient Health Record ---
Author Organization [facility] Address [address] [place] [address] Care Team Providers Care Plant Culture Manager Name Role Phone So MCALLISTER, Primary Care Provider Unavaila Jose Doty Unavailable [phone] Eamon MCALLISTER, Zamzam Unavailable Unavailable Reason For [...] Status Risk Notes Problem Colon cancer screening (598881582) Colon cancer screening (Z12.11) Active confirmed Problem [id number] Epigastric abdominal pain (R10.13) Active confirmed Problem [id number] Encounter for screening for malignant neoplasm of colon (Z12.11) Active confirmed Problem [id number] Preprocedural examination (Z01.818) Active confirmed Encounters Encounter Location Date Provider Diagnosis [facility] [address] [place] [address] 05/27/2024 Jose Arevalo [facility] [address] [place] [address] 05/30/2024 Jose Arevalo Plan Of Treatment Future Test Test Name Order Date UPPER GI ENDOSCOPY 08/23/2017 COLONOSCOPY 04/10/2019 COLONOSCOPY 04/26/2024 Insurance Providers Payer Name Payer Address Payer Phone Subscriber Number Group Number Insured Name Patient Relationship to Insured Coverage Start Date Coverage End Date MEDICARE OF [place] [address] [facility] [place] [address] [id number] JOSE CUBA Self - patient is the insured [employer] [address] [place] [address] [id number] JOSE CUBA Self - patient is the insured Medical (General) History Medical History History ICD Code Denies [place],DM,CVA,Lung disease,renal dise ase Hyperlipidemia Screening colonoscopy in Mar with Dr. Johansen revealed only hyperplastic polyps. EGD in 08/2017-small HH, normal duodenal and gastric biopsies Surgical History Surgery Date(Month/Year) Lap cholecystectomy--acalculous cholecys titis-Dr. Knutson 05/2017 Finger- infection drained 1969
--- OUTSIDE RECORDS SUMMARY | 2025-05-16 06:32 | XMS_ITS | Encounter Summary ---
Author Organization [facility] Address [address] [place] [address] Care Team Providers Care Magistrate Assistant Name Role Phone Morris Rizzo MD Primary Care Provider [phone] Encounter Details Date Type Department Care Team (Late st Contact Info) Description 02/03/2025 Lab Requisition [facility] [address] [facility] [place] [address] Alexys Puentes MD [address] [place] [address] Chronic kidney disease, unspecified; Hyperlipidemia, unspecified; Thyrotoxicosis, [...] g/dL LAB CHEMISTR[facility] Albumin 2.6(L) 3.2 - 5.0 g/dL LAB CHEMISTRY METHOD 02/04/2025 12:[address] [facility] Total Bilirubin 0.8 0.0 - 1.4 mg/dL LAB CHEMISTRY METHOD 02/04/2025 12:03 PM [facility] Bilirubin, Direct 0.2 0.0 - 0.3 mg/dL LAB CHEMISTRY METHOD 02/04/2025 12:03 PM [facility] Bilirubin, Indirect 0.6 0.0 - 1.1 mg/dL LAB CHEMISTRY METHOD 02/04/2025 12:03 PM [facility] ALT (SGPT) 52 10 - 60 unit/L LAB CHEMISTRY METHOD 02/04/2025 12:03 PM [facility] AST (SGOT) 27 10 - 42 unit/L LAB CHEMISTRY METHOD 02/04/2025 12:03 PM [facility] Alkaline Phosphatase 128(H) 42 - 121 unit/L LAB CHEMISTRY METHOD 02/04/2025 12:03 PM [facility] Blood Venous blood specimen / Unknown Venipuncture / Unknown 02/04/2025 8:05 AM EDT 02/04/2025 10:03 AM EDT us Alexys Puentes MD LAB BLOOD ORDERABLES Final Result [facility] [address] [place], [place] [address] [phone] * (ABNORMAL) Basic metabolic panel (02/04/2025 8:05 AM EDT) Sodium 138 133 - 145 mmol/L LAB CHEMISTRY METHOD 02/04/2025 12:03 PM [facility] Potassium 3.4(L) 3.5 - 5.5 mmol/L LAB CHEMISTRY METHOD 02/04/2025 12:03 PM [facility] Chloride 105 96 - 110 mmol/L LAB CHEMISTRY METHOD 02/04/2025 12:03 PM [facility] CO2 27 21 - 32 mmol/L LAB CHEMISTRY METHOD 02/04/2025 12:03 PM [facility] Anion Gap 6 3 - 11 LAB CHEMISTRY METHOD 02/04/2025 12:03 PM [facility] Glucose 75 70 - 100 mg/dL LAB CHEMISTRY METHOD 02/04/2025 12:03 PM [facility] BUN 34(H) 5 - 25 mg/dL LAB CHEMISTRY METHOD 02/04/2025 12:03 PM [facility] Creatinine 1.66(H) 0.70 - 1.30 mg/dL LAB CHEMISTRY METHOD 02/04/2025 12:03 PM [facility] eGFR 45(L) >=60 mL/min/1. 73m2 LAB CHEMISTRY METHOD 02/04/2025 12:03 PM [facility] Comment:Calculation based on the Chronic Kidney Disease Epidemiology Collaboration (CKD-EPI) equation refit without adjustment for race. BUN/Creatinine Ratio 20.5 LAB CHEMISTRY METHOD 02/04/2025 12:03 PM [facility] Calcium 8.9 8.5 - 10.5 mg/dL LAB CHEMISTRY METHOD 02/04/2025 12:03 PM [facility] Blood Venous blood specimen / Unknown Venipuncture / Unknown 02/04/2025 8:05 AM EDT 02/04/2025 10:03 AM EDT us Alexys Puentes MD LAB BLOOD ORDERABLES Final Result [facility] [address] [place] [address], [place] [phone] * (ABNORMAL) Complete blood count (02/04/2025 8:05 AM EDT) WBC 4.8 4.8 - 10.8 K/mcL LAB HEMETOLOGY METHOD 02/04/2025 11:[address] [facility] RBC 3.10(L) 4.50 - 5.50 M/mcL LAB HEMETOLOGY METHOD 02/04/2025 11:16 AM [facility] Hemoglobin 9.9(L) 13.5 - 17.5 g/dL LAB HEMETOLOGY METHOD 02/04/2025 11:16 AM [facility] Hematocrit 29.6(L) 42.0 - 54.0 % LAB HEMETOLOGY METHOD 02/04/2025 11:16 AM [facility] MCV 97.0 79.0 - 98.0 FL LAB HEMETOLOGY METHOD 02/04/2025 11:16 AM [facility] MCH 32.5(H) 27.0 - 32.0 pcg LAB HEMETOLOGY METHOD 02/04/2025 11:16 AM [facility] MCHC 33.4 32.0 - 37.0 g/dL LAB HEMETOLOGY METHOD 02/04/2025 11:16 AM [facility] RDW 19.0(H) 11.0 - 15.0 % LAB HEMETOLOGY METHOD 02/04/2025 11:16 AM [facility] Platelets 120(L) 130 - 400 K/mcL LAB HEMETOLOGY METHOD 02/04/2025 11:[address] [facility] MPV 10.3 7.0 - 11.0 FL LAB HEMETOLOGY METHOD 02/04/2025 11:[address] [facility] NRBC 0.6 <1.0 % LAB HEMETOLOG METHOD 02/04/2025 11:[address] [facility] NRBC Absolute 0.03 <0.10 K/mcL LAB HEMETOLOGY METHOD 02/04/2025 11:[address] [facility] Blood Venous blood specimen / Unknown Venipuncture / Unknown 02/04/2025 8:05 AM EDT 02/04/2025 10:03 AM EDT us Alexys Puentes MD LAB BLOOD ORDERABLES Final Result [facility] [address] [place] [address], documented in this encounter Visit Diagnoses Diagnosis Chronic kidney disease, unspecified Hyperlipidemia, unspecified Thyrotoxicosis, unspecified without thyrotoxic crisis or storm documented in this encounter Care Teams Magistrate Assistant Relationship Specialty Start Date End Date Morris Rizzo MD [address] [place] [address] PCP - General Internal Medicine 05/27/22 documented as of this encounter
--- OUTSIDE RECORDS SUMMARY | 2025-05-16 06:32 | XMS_ITS | Clinical Summary ---
Author Organization [facility] Address [address] [facility] [address] [place], [place] [id number] Phone Care Team Providers Care Butcher Helper Name Role Phone Unavailable Primary Care Provider [...] Insurance [place] [id number] MEDICARE PART A & B MEDICARE PART A & B MEDICARE PART A & B MEDICARE PART A & B MEDICARE PART A & B Additional Source Comments The information contained in this document represents components of the legal health record. It is not the complete legal health record.[facility]
[2025-05-16 06:42] LABS: MANUAL DIFF FLAG NO
[2025-05-16 06:44] LABS: Hematocrit 35.0 % (42.0-52.0); Hemoglobin 12.1 g/dl (14.0-18.0); Imm Gran Abs Auto 0.02 X10*3/uL (0.00-0.03); Imm Gran Pct Auto 0.4 % (0.0-0.4); Lymphocytes Absolute Auto 1.9 X10*3/uL (1.2-4.9); Mean Corpuscular HGB Conc 34.6 g/dl (31.0-36.0); Mean Corpuscular Hemoglobin 33.2 pg (27.0-33.0); Mean Corpuscular Volume 95.9 fL (80.0-98.0); NRBC Abs Auto 0.000 X10*3/uL (0.0-0.012); NRBC Pct Auto 0.0 /100WBC (0.0-0.2); Platelet Count 195 X10*3/uL (160-400); Red Blood Count 3.65 X10*6/uL (4.60-5.80); White Blood Count 5.3 X10*3/uL (4.8-10.8)
[2025-05-16 06:57] LABS: Alanine Aminotransferase 15 U/L (0-40); Albumin Level 4.0 g/dL (3.5-5.0); Alkaline Phosphatase 101 U/L (39-117); Anion Gap 13 (12-20); Aspartate Amino Transferase 39 U/L (5-37); Blood Urea Nitrogen 19 mg/dL (9-16); Calcium 9.7 mg/dL (8.4-10.2); Carbon Dioxide 22 mmol/L (22-29); Chloride 110 mmol/L (96-108); Estimated Glomerular Filt Rate 37; Magnesium 1.8 mg/dL (1.6-2.6); Potassium 3.8 mmol/L (3.3-5.1); Sodium 141 mmol/L (135-145); Total Protein 6.9 g/dL (6.5-8.0)
== END 2025-05-16 06:30 | disposition home or self-care (01) ==
LOC: HO.LAB 06:29
PROVIDERS: Visit Provider Internal Medicine
DX: C67.9 Malignant neoplasm of bladder, unspecified (principal)
CPT/HCPCS: 36415; 80053; 83735; 85025

== ENCOUNTER 2025-05-22 11:24 | Day surgery (SDC) | payer MEDICARE, OTHER, SELFPAY ==
--- OUTSIDE RECORDS SUMMARY | 2025-05-05 13:04 | XMS_ITS | Encounter Summary ---
Author Organization [facility] Address [address] [place] [address] Care Team Providers Care Development Professional Name Role Phone Morris Rizzo MD Primary Care Provider [phone] Encounter Details Date Type Department Care Team (Late st Contact Info) Description 02/03/[address] [facility] - Main Lab 299 [facility] [place] [address] Alexys Puentes MD [address] [place] [address] Chronic kidney disease, unspecified; Hyperlipidemia, unspecified; Thyrotoxicosis, [...] g/dL LAB CHEMISTRY [facility] Albumin 2.6(L) 3.2 - 5.0 g/dL LAB CHEMISTRY METHOD 02/04/2025 12:03 PM EDT [facility] Total Bilirubin 0.8 0.0 - 1.4 mg/dL LAB CHEMISTRY METHOD 02/04/2025 12:03 PM [facility] Bilirubin, Direct 0.2 0.0 - 0.3 mg/dL LAB CHEMISTRY METHOD 02/04/2025 12:03 PM [facility] Bilirubin, Indirect 0.6 0.0 - 1.1 mg/dL LAB CHEMISTRY METHOD 02/04/2025 12:03 PM [facility] ALT (SGPT) 52 10 - 60 unit/L LAB CHEMISTRY METHOD 02/04/2025 12:03 PM [facility] AST (SGOT) 27 10 - 42 unit/L LAB CHEMISTRY METHOD 02/04/2025 12:03 PM [facility] Alkaline Phosphatase 128(H) 42 - 121 unit/L LAB CHEMISTRY METHOD 02/04/2025 12:03 PM [facility] Blood Venous blood specimen / Unknown Venipuncture / Unknown 02/04/2025 8:05 AM EDT 02/04/2025 10:03 AM EDT us Alexys Puentes MD LAB BLOOD ORDERABLES Final Result [facility] [address] [place], [place] [address] [phone] * (ABNORMAL) Basic metabolic panel (02/04/2025 8:05 AM EDT) Sodium 138 133 - 145 mmol/L LAB CHEMISTRY METHOD 02/04/2025 12:03 PM [facility] Potassium 3.4(L) 3.5 - 5.5 mmol/L LAB CHEMISTRY METHOD 02/04/2025 12:03 PM [facility] Chloride 105 96 - 110 mmol/L LAB CHEMISTRY METHOD 02/04/2025 12:03 PM [facility] CO2 27 21 - 32 mmol/L LAB CHEMISTRY METHOD 02/04/2025 12:03 PM [facility] Anion Gap 6 3 - 11 LAB CHEMISTRY METHOD 02/04/2025 12:03 PM [facility] Glucose 75 70 - 100 mg/dL LAB CHEMISTRY METHOD 02/04/2025 12:03 PM [facility] BUN 34(H) 5 - 25 mg/dL LAB CHEMISTRY METHOD 02/04/2025 12:03 PM [facility] Creatinine 1.66(H) 0.70 - 1.30 mg/dL LAB CHEMISTRY METHOD 02/04/2025 12:03 PM [facility] eGFR 45(L) >=60 mL/min/1. 73m2 LAB CHEMISTRY METHOD 02/04/2025 12:03 PM [facility] Comment:Calculation based on the Chronic Kidney Disease Epidemiology Collaboration (CKD-EPI) equation refit without adjustment for race. BUN/Creatinine Ratio 20.5 LAB CHEMISTRY METHOD 02/04/2025 12:03 PM [facility] Calcium 8.9 8.5 - 10.5 mg/dL LAB CHEMISTRY METHOD 02/04/2025 12:03 PM [facility] Blood Venous blood specimen / Unknown Venipuncture / Unknown 02/04/2025 8:05 AM EDT 02/04/2025 10:03 AM EDT us Alexys Puentes MD LAB BLOOD ORDERABLES Final Result [facility] [address] [place] [address], [place] [phone] * (ABNORMAL) Complete blood count (02/04/2025 8:05 AM EDT) WBC 4.8 4.8 - 10.8 K/mcL LAB HEMETOLOGY METHOD 02/04/2025 11:16 AM EDT [facility] RBC 3.10(L) 4.50 - 5.50 M/mcL LAB HEMETOLOGY METHOD 02/04/2025 11:16 AM [facility] Hemoglobin 9.9(L) 13.5 - 17.5 g/dL LAB HEMETOLOGY METHOD 02/04/2025 11:16 AM [facility] Hematocrit 29.6(L) 42.0 - 54.0 % LAB HEMETOLOGY METHOD 02/04/2025 11:16 AM [facility] MCV 97.0 79.0 - 98.0 FL LAB HEMETOLOGY METHOD 02/04/2025 11:16 AM [facility] MCH 32.5(H) 27.0 - 32.0 pcg LAB HEMETOLOGY METHOD 02/04/2025 11:16 AM [facility] MCHC 33.4 32.0 - 37.0 g/dL LAB HEMETOLOGY METHOD 02/04/2025 11:16 AM [facility] RDW 19.0(H) 11.0 - 15.0 % LAB HEMETOLOGY METHOD 02/04/2025 11:16 AM [facility] Platelets 120(L) 130 - 400 K/mcL LAB HEMETOLOGY METHOD 02/04/2025 11:16 AM EDT [facility] MPV 10.3 7.0 - 11.0 FL LAB HEMETOLOGY METHOD 02/04/2025 11:16 AM EDT [facility] NRBC 0.6 <1.0 % LAB HEMETOLOG METHOD 02/04/2025 11:16 AM EDT [facility] NRBC Absolute 0.03 <0.10 K/mcL LAB HEMETOLOGY METHOD 02/04/2025 11:16 AM EDT [facility] Blood Venous blood specimen / Unknown Venipuncture / Unknown 02/04/2025 8:05 AM EDT 02/04/2025 10:03 AM EDT us Alexys Puentes MD LAB BLOOD ORDERABLES Final Result [facility] [address] [place] [address], documented in this encounter Visit Diagnoses Diagnosis Chronic kidney disease, unspecified Hyperlipidemia, unspecified Thyrotoxicosis, unspecified without thyrotoxic crisis or storm documented in this encounter Care Teams Development Professional Relationship Specialty Start Date End Date Morris Rizzo MD [address] [place] [address] PCP - General Internal Medicine 05/27/22 documented as of this encounter
--- OUTSIDE RECORDS SUMMARY | 2025-05-05 13:04 | XMS_ITS | Patient Health Record ---
Author Organization [facility] Address [address] [place] [address] Care Team Providers Care Fur Grader Name Role Phone So MCALLISTER, Primary Care Provider Unavaila Jose Doty Unavailable [phone] Eamon MCALLISTER, Zamzam Unavailable Unavailable Reason For [...] Status Risk Notes Problem Colon cancer screening (626046029) Colon cancer screening (Z12.11) Active confirmed Problem 50928055 Epigastric abdominal pain (R10.13) Active confirmed Problem 054562169 Encounter for screening for malignant neoplasm of colon (Z12.11) Active confirmed Problem [id number] Preprocedural examination (Z01.818) Active confirmed Encounters Encounter Location Date Provider Diagnosis [facility] [address] [place] [address] 05/27/2024 Jose Arevalo [facility] [address] [place] [address] 05/30/2024 Jose Arevalo Plan Of Treatment Future Test Test Name Order Date UPPER GI ENDOSCOPY 08/23/2017 COLONOSCOPY 04/10/2019 COLONOSCOPY 04/26/2024 Insurance Providers Payer Name Payer Address Payer Phone Subscriber Number Group Number Insured Name Patient Relationship to Insured Coverage Start Date Coverage End Date MEDICARE OF [place] [address] [place] [address] [id number] JSOE CUBA Self - patient is the insured [employer] [address] [place] [address] [id number] JOSE CUBA Self - patient is the insured Medical (General) History Medical History History ICD Code Denies [place],DM,CVA,Lung disease,renal dise ase Hyperlipidemia Screening colonoscopy in [place] with Dr. Johansen revealed only hyperplastic polyps. EGD in 08/2017-small HH, normal duodenal and gastric biopsies Surgical History Surgery Date(Month/Year) Lap cholecystectomy--acalculous cholecys titis-Dr. Knutson 05/2017 Finger- infection drained 1969
--- OUTSIDE RECORDS SUMMARY | 2025-05-05 13:04 | XMS_ITS | Encounter Summary ---
Author Organization [facility] Address [address] [place] [address] Care Team Providers Care Director Nurses' Registry Name Role Phone Morris Rizzo Primary Care Provider [phone] Encounter Details Date Type Department Care Team (Late st Contact Info) Description 04/15/2024 Orders Only [facility] [address] [facility], 5th [place] [address] Shola Arroyo MD [address] [place] [address] Social History Tobacco Use Types Packs/Day Years [...] on filedocumented in this encounter Care Teams Director Nurses' Registry Relationship Specialty Start Date End Date Morris Rizzo [address] [place] [address] [place] [address] PCP - General Internal Medicine 01/09/24 documented as of this encounter
--- NOTE | 2025-05-21 13:34 | PC.NURSE ---
Called pt with pre-procedure instructions (npo after midnight/arrival time at 1130 and no need to hold eliquis). PT understood instructions
[2025-05-22] VITALS (8 sets, daily range): BP systolic 108–137; BP diastolic 72–96; PULSE 77–86; RESP 12–16; TEMP 36.1–36.6; O2SAT 96–99; BMI 29.0
--- NOTE | ~2025-05-22 | IR_ITS ---
FLUOROSCOPIC RIGHT NEPHROSTOMY CHANGE History: Patient has a right nephrostomy tube due to right ureteral obstruction due to bladder cancer. Procedure: Patient was informed and consented to the procedure. The patient's back was prepped and draped in routine sterile fashion. 1% lidocaine was used as a anesthetic around the insertion site. An antegrade nephrostogram was performed which demonstrated contrast flowing into the most distal portion of the ureter and did not empty into the bladder. Contrast was seen refluxing into the renal pelvis. The catheter was cut, and a stiff guidewire was advanced through the tube and into the renal pelvis. The catheter was removed over the wire. A new 10 Montenegrin locking pigtail catheter was advanced over the wire. The wire was removed. 5 mL of contrast was injected to assure proper positioning. The pigtail catheter was noted to be within the renal pelvis. A 3-0 Ethilon suture was used to secure the catheter to the skin. A sterile dressing was applied. The patient tolerated the procedure well with no immediate complications. Total fluoroscopy time 2.5 minutes. IR/IR nephrostomy tube change Impression: Antegrade nephrostogram demonstrating distal ureteral obstruction and refluxing contrast. Right nephrostomy tube exchange The procedure was performed by Jacoby Grace NP and supervised by Kacie Gomez MD. Electronically signed by: Alexander Gomez MD 05/28/2025 05:51 PM EDT
[2025-05-22 12:33] LABS: INTERNATIONAL NORM RATIO 1.1 (0.9-1.1); Prothrombin Time 12.2 SEC (10.9-12.4)
== END 2025-05-22 14:59 | disposition home or self-care (01) ==
PROVIDERS: Visit Provider Urology
DX: N13.30 Unspecified hydronephrosis (principal); C67.9 Malignant neoplasm of bladder, unspecified; N18.32 Chronic kidney disease, stage 3b; E78.5 Hyperlipidemia, unspecified; Z79.01 Long term (current) use of anticoagulants; Z79.899 Other long term (current) drug therapy; Z87.891 Personal history of nicotine dependence
CPT/HCPCS: 36415; 50430; 50435; 85610; J2003; J2250; J3010

== ENCOUNTER → 2025-05-22 12:55 | Outpatient (BNV) | payer MEDICARE, OTHER, SELFPAY | DX: C67.9 Malignant neoplasm of bladder, unspecified (principal) | CPT/HCPCS: 50435 ==

== ENCOUNTER 2025-05-26 09:14 | Outpatient (AMB) | payer MEDICARE, OTHER, SELFPAY ==
--- NOTE | 2025-05-26 09:28 | A.OFFVIS_ITS ---
Vital Signs 05/26/25 09:29 Height 6 ft 2 in Weight 200 lb BMI 25.7 BP 110/60 Blood Pressure Location Rt brachial Position Sitting Respiration 18 Pulse 93 Pulse Source Pulse Oximeter Pulse Oximetry (%) 96 Oxygen Delivery Method Room Air Intake Visit Reasons: Cough/Shortness of Breath Quality Assurance Manager Required: No Allergies No Known Allergies (No Known Allergies*) Allergy (Verified 05/29/25 11:36) HPI HPI Cough/Shortness of Breath: Details: Brady is a pleasant 64 year old male, former 20 pack year smoker, quit 13 years ago with underlying hypercholesterolemia, obesity, neuropathy, h/o metastatic bladder cancer under the care of [facility] now in remission, chronic kidney disease, hypothyroidism, adrenal insufficiency, and hypertension. He was referred after recent pneumonia and pulmonary embolism. He was admitted for pneumonia in December 2024. CTA of chest showing patchy right lung infiltrate suspicious for pneumonia treated with IV Ceftriaxone azithromycin, started 01/10/2025 with good response as cough and dyspnea improved. His blood cultures remained negative and discharged on PO Azithromycin and Ceftin for 1 week to finish total of 10 days of antibiotics. Post discharge follow-up he was noted to be tachycardic and tachypneic. D-dimer was over 3000. V/Q scan showed multiple perfusion defects bilaterally, transferred to [facility] and he was started on Eliquis or unprovoked PE however with underlying malignancy likely being the cause. Repeat CT chest performed February 2025 shows resolution of lung infiltrates. No evidence of metastatic disease. Oncology is currently prescribing Eliquis and patient has been tolerating well. He continues with cough, mostly dry, occasionally productive cough with clear to white sputum with associated post nasal drip and dyspnea on exertion. He denies fevers, chills, chest congestion, wheezing or chest tightness. He denies h/o asthma/COPD. He has trialed tessaslon perles and zofran due to post emesis cough as well as robitussin. He denies seasonal allergies or other environmental exposures. He denies any pertinent family history. He denies h/o recurrent respiratory infections. He is a part of the lung screening program through [facility] however last performed 2022. [facility] Medical History Pulmonary embolism Dry skin Dyspnea on exertion Left wrist pain Stiffness of left wrist joint Elevated serum creatinine Elevated blood pressure reading Hematuria Bladder mass History of immune checkpoint inhibitor therapy Hypophysitis Adrenal insufficiency Hypothyroidism Port-A-Cath in place (02/16/24) History of blood transfusion Bladder cancer Obesity (BMI 30-39.9) Pure hypercholesterolemia Hyperlipemia Carpal tunnel syndrome Surgical History Mass of left axilla (05/31/24) Hx of colonoscopy Hx of cystoscopy History of surgery History of hand surgery History of ankle surgery History of cholecystectomy Family History Father Multiple sclerosis, primary progressive Mother No problems noted. 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 Current occupational exposures/hazards: No Cognitive needs: No Hearing needs: No Vision needs: Yes (Glasses) Review of Systems Const Denies chills, Denies excessive sweating, Denies fever(s), Denies headache(s) and Denies night sweats Eyes Denies dry eyes, Denies irritation and Denies itchy eyes ENT Reports Normal hearing present, Denies headache(s), Denies nasal congestion, Denies nasal discharge and Denies sore throat Card Denies chest pain, Denies chest pain at rest, Denies chest pain with activity, Denies claudication, Denies leg edema, Denies orthopnea and Denies paroxysmal nocturnal dyspnea Resp Denies chest congestion, Denies excessive phlegm production, Denies pain on inspiration, Denies pain with cough, Denies stridor and Denies wheezing Musc Denies myalgias Neuro Reports Normal hearing present and Denies headache(s) Endo Denies excessive sweating Phil/Lymph Denies lymphadenopathy Aller/Immun Denies itchy eyes, Denies seasonal rhinorrhea and Denies wheezing Physical Exam Vital Signs: Last Vital Signs Pulse 93 05/26/25 09:29 Resp 18 05/26/25 09:29 BP 110/60 05/26/25 09:29 Pulse Ox 96 05/26/25 09:29 Oxygen Delivery Method Room Air 05/26/25 09:29 BMI result Body Mass Index 25.7 Const General: cooperative, healthy appearing, comfortable, no acute distress, well developed and alert Orientation/consciousness: patient oriented x3 Limitations: ambulation with walker HEENT Head: Yes normal to inspection, Yes normocephalic and Yes atraumatic Ears: hearing grossly normal bilaterally and external ears normal Eyes General: appearance normal, both eyes and all related structures Eyelids: Yes eyelids normal Sclerae: sclerae normal EOM: EOMs intact bilaterally Neck Neck: Yes normal visual inspection and Yes no lymphadenopathy Lymphatic: no lymphadenopathy noted Chest Chest palpation & inspection: normal inspection of the chest Resp Effort & Inspection: normal respiratory effort, able to speak in complete sentences, no audible wheezes, no cough, no stridor, not tachypneic, no tripod positioning and no use of accessory muscles Auscultation: diminished lung sounds Cardio Jugular venous distension: no JVD Rate: regular rate Rhythm: regular rhythm Skin Other: warm, dry General skin exam: no rashes or lesions noted Neuro General: patient oriented x3 Cranial nerves: Yes Normal hearing present Cognition (Neuro): normal cognition Gait exam (Neuro): Normal gait present Extrem General: Yes normal to inspection, Yes capillary refill normal, Yes no clubbing, cyanosis or edema and Yes no pedal edema Psych Appearance: grossly normal and well kempt Speech and movement: Normal speech and movement present and Clear speech present Affect: normal affect Attitude: cooperative Thought process: Normal thought process present Thought content: Normal thought content present Insight: Good insight present (Psych) Judgement: Good judgement present (Psych) Assessment & Plan Assessment & Plan (1) Pulmonary embolism: Code(s): I26.99 - Other pulmonary embolism without acute cor pulmonale Category: Medical (2) Dyspnea: Code(s): R06.00 - Dyspnea, unspecified Category: Medical (3) Cough: Code(s): R05.9 - Cough, unspecified Category: Medical Plan Brady presents for pulmonary evaluation after pneumonia in December and PE in January. He is currently maintained on Eliquis and tolerating well. He continues with mostly dry cough with associated dyspnea, will send for PFT to assess for any obstructive/restrictive defect. Encouraged use of albuterol MDI PRN. Repeat chest CT 02/2025 revealed resolution of pneumonia, will repeat in one year given smoking history. All questions were answered and patient is in agreement of plan. Will follow up to review results or sooner if needed. Orders: Orders CT chest wo IV con 9 Months Z87.891 - Personal history of nicotine dependence Coding Level of Care Code New Pt Level 4 (85888) Diagnoses Pulmonary embolism I26.99 Dyspnea R06.00 Cough R05.9
[2025-05-26 09:29] VITALS: BP 110/60; PULSE 93; RESP 18; O2SAT 96; BMI 25.7
--- OUTSIDE RECORDS SUMMARY | 2025-05-26 09:39 | XMS_ITS | Patient Health Record ---
Author Organization [facility] Address [address] [place] [address] Care Team Providers Care Terrazzo Tile Maker Name Role Phone So MCALLISTER, Primary Care Provider Unavaila Jose Doty Unavailable [phone] Eamon MCALLISTER, Zamzam Unavailable Unavailable Reason For [...] Status Risk Notes Problem Colon cancer screening (850117080) Colon cancer screening (Z12.11) Active confirmed Problem 17737407 Epigastric abdominal pain (R10.13) Active confirmed Problem 571428817 Encounter for screening for malignant neoplasm of colon (Z12.11) Active confirmed Problem [id number] Preprocedural examination (Z01.818) Active confirmed Encounters Encounter Location Date Provider Diagnosis [facility] [address] [place] [address] 05/27/2024 Jose Arevalo [facility] [address] [place] [address] 05/30/2024 Jose Arevalo Plan Of Treatment Future Test Test Name Order Date UPPER GI ENDOSCOPY 08/23/2017 COLONOSCOPY 04/10/2019 COLONOSCOPY 04/26/2024 Insurance Providers Payer Name Payer Address Payer Phone Subscriber Number Group Number Insured Name Patient Relationship to Insured Coverage Start Date Coverage End Date MEDICARE OF [place] [address] [facility] [place] [address] [id number] JOSE CUBA Self - patient is the insured [employer] [address] [place] [address] [id number] JOSE CUBA Self - patient is the insured Medical (General) History Medical History History ICD Code Denies [place],DM,CVA,Lung disease,renal dise ase Hyperlipidemia Screening colonoscopy in [place] with Dr. Johansen revealed only hyperplastic polyps. EGD in 08/2017-small HH, normal duodenal and gastric biopsies Surgical History Surgery Date(Month/Year) Lap cholecystectomy--acalculous cholecys titis-Dr. Knutson 05/2017 Finger- infection drained 1969
--- OUTSIDE RECORDS SUMMARY | 2025-05-26 09:39 | XMS_ITS | Encounter Summary ---
Author Organization [facility] Address [address] [place] [address] Care Team Providers Care History Teacher Name Role Phone Morris Rizzo Primary Care Provider [phone] Encounter Details Date Type Department Care Team (Late st Contact Info) Description 04/15/2024 Orders Only [facility] [address] [facility], [address] [place] [address] Shola Arroyo MD [address] [place] [address] Social History Tobacco Use Types Packs/Day Years [...] on filedocumented in this encounter Care Teams History Teacher Relationship Specialty Start Date End Date Morris Rizzo [address] [place] [address] [place] [address] PCP - General Internal Medicine 01/09/24 documented as of this encounter
--- OUTSIDE RECORDS SUMMARY | 2025-05-26 09:40 | XMS_ITS | Clinical Summary ---
Author Organization [facility] Address [address] [place], [place] [id number] Phone Care Team Providers Care Fruit And Vegetable Classer Name Role Phone Unavailable Primary Care Provider [...] file Insurance MEDICARE PART A & B Member Subscriber Plan / Payer (Ef fective 2023-Present) Name:Brady Lambert Member ID:[id number] Relation to Subscriber:Self Name:Brady Lambert Subscriber ID:[id number] Payer ID:[id number] Group ID:Not on file Type:Medicare Address: [employer] [facility]. [address] [place] [address] [place] [address] MEDICARE PART A & B MEDICARE PART A & B MEDICARE PART A & B MEDICARE PART A & B MEDICARE PART A & B Additional Source Comments The information contained in this document represents components of the legal health record. It is not the complete legal health record.[facility]
--- OUTSIDE RECORDS SUMMARY | 2025-05-26 09:40 | XMS_ITS | Encounter Summary ---
Author Organization [facility] Address [address] [place] [address] Care Team Providers Care Senior Net Application Developer Name Role Phone Morris Rizzo MD Primary Care Provider Encounter Details Date Type Department Care Team (Late st Contact Info) Description 02/03/2025 Lab Requisition [facility] [address] [facility] [place] [address] Alexys Puentes MD [address] [place] [address] Chronic kidney disease, unspecified; Hyperlipidemia, unspecified; Thyrotoxicosis, [...] LAB CHEMISTRY METHOD 02/04/2025 12:03 PM EDT [facility] Total Bilirubin 0.8 0.0 - 1.4 [...] Puentes MD LAB BLOOD ORDERABLES Final Result [facility] [address] [place], [place] [address] [phone] * (ABNORMAL) Basic metabolic panel (02/04/2025 8:05 [...] Puentes MD LAB BLOOD ORDERABLES Final Result [facility] [address] [place] [address], [place] [phone] * (ABNORMAL) Complete blood count (02/04/2025 8:05 AM EDT) WBC 4.8 4.8 - 10.8 K/mcL LAB HEMETOLOGY METHOD 02/04/2025 11:16 AM EDT [facility] RBC 3.10(L) 4.50 - 5.50 M/mcL [...] LAB HEMETOLOGY METHOD 02/04/2025 11:16 AM EDT [facility] MPV 10.3 7.0 - 11.0 FL LAB HEMETOLOGY METHOD 02/04/2025 11:16 AM EDT [facility] NRBC 0.6 <1.0 % LAB HEMETOLOG METHOD 02/04/2025 11:16 AM EDT [facility] NRBC Absolute 0.03 <0.10 K/mcL LAB HEMETOLOGY METHOD 02/04/2025 11:16 AM EDT [facility] Blood Venous blood specimen / Unknown Venipuncture / Unknown 02/04/2025 8:05 AM EDT 02/04/2025 10:03 AM EDT us Alexys Puentes MD LAB BLOOD ORDERABLES Final Result [facility] [address] [place] [address], documented in this encounter Visit Diagnoses Diagnosis Chronic kidney disease, unspecified Hyperlipidemia, unspecified Thyrotoxicosis, unspecified without thyrotoxic crisis or storm documented in this encounter Care Teams Senior Net Application Developer Relationship Specialty Start Date End Date Morris Rizzo MD [address] [place] [address] PCP - General Internal Medicine 05/27/22 documented as of this encounter
== END 2025-05-26 10:03 | disposition home or self-care (01) ==
LOC: HO.HPS 09:15
PROVIDERS: Visit Provider Nurse Practitioner Family
DX: I26.99 Other pulmonary embolism without acute cor pulmonale (principal); R06.00 Dyspnea, unspecified; R05.9 Cough, unspecified
CPT/HCPCS: 99204

== ENCOUNTER → 2025-05-26 09:14 | Outpatient (BNVA) | payer MEDICARE, OTHER, SELFPAY | PROVIDERS: Visit Provider Nurse Practitioner Family | DX: I26.99 Other pulmonary embolism without acute cor pulmonale (principal); R06.00 Dyspnea, unspecified; R05.9 Cough, unspecified | CPT/HCPCS: 99202 ==

== ENCOUNTER 2025-05-29 11:23 | Outpatient (AMB) | payer MEDICARE, OTHER, SELFPAY ==
--- NOTE | 2025-05-29 11:30 | HO.NEPHOV ---
Vital Signs 05/29/25 11:31 Height 6 ft 2 in Weight 223 lb BMI 28.6 BP 100/72 Blood Pressure Location Lt brachial Position Sitting Intake Visit Reasons: 6 week f/u Conf Rattling Machine Tender Required: No Accompanied by: Self / Same As Patient Allergies No Known Allergies (No Known Allergies*) Allergy (Verified 05/29/25 11:36) Medication List - Last Reconciled 05/29/25 by Km Figueroa MD albuterol sulfate 90 mcg/actuation 2 puffs inhalation Q6H PRN apixaban (Eliquis) 2.5 mg PO BID atorvastatin 20 mg PO BEDTIME 90 days benzonatate 100 mg PO bid-tid PRN 7 days codeine-guaifenesin 10-100 mg/5 mL 5 - 10 mL PO BEDTIME PRN hydrocortisone orally; Take 10 mg (1 tablet) in AM and 5 mg (half a tablet) in afternoon at 2 PM daily levothyroxine 100 mcg PO DAILY metoprolol tartrate 25 mg PO BID 90 days needle (disp) 18 G (BD Regular Bevel Pioche) As directed to draw hydrocortisone in case of emergency omeprazole 20 mg PO DAILY@0630 syringe with needle (BD Luer-Shiv Syringe) As directed to be used to inject hydrocortisone in case of emergency [walker As directed] [walker with wheels As directed] HPI Comments Details: 63M PMH metastatic baldder cancer s/p TURBT and right nephrostomy on immunotherapy, secondary adrenal insufficiency, hypothryoid, HTN, HLD, GERD, CT urogram performed 12/06/2023 revealed moderate right hydronephrosis extending down to bladder, large heterogenous mass in the right side of bladder involving right lateral bladder wall, right UVJ region and posterior inferior base of the bladder extending toward the left UVJ concerning for bladder neoplasm. Mass is irregular in shape and difficult to measure. There is stranding of the adjacent perivesicular fat, small right retroperitoneal lymph node seen. Staging CT chest and bone scan did not show evidence of metastatic disease. Clinical stage T2/3 N0. He underwent TURBT on 12/12/2023 which revealed a necrotic bladder tumor involving right lateral wall and right trigone, right ureteral orifice was not visualized. Biopsy revealed invasive urothelial carcinoma, high-grade, tumor invades muscularis propria, lymphatic vessel invasion is identified. IHC showed focal positivity for CK20, negative for synaptophysin and chromogranin. MSI, PD-L1 positive, expression is 100% and NGS negative all pertinent mutations. (MET Exon 14 deletion, negative for alk, BRAF, FGFR 1/2/3/4, notch 1 and 2, ret and ROS1) He had right fluoroscopic guided placement of nephrostomy tube in the right kidney on 02/12/2024. He started neoadjuvant chemotherapy with cisplatin 70 mg/m2/gemcitabine 1000mg/m2 D 1 and 8 q 21 days from 02/27/2024 until 04/2024. Unfortunately, PET-CT performed at [facility] in 06/11/2024 showed multiple subcutaneous and intramuscular nodules demonstrating arfl-ei-[id number] FDG uptake. Predominantly in the left axilla, left gluteal region. Moderate FDG uptake corresponding to right posterolateral bladder mass. No FDG avid abdominopelvic lymphadenopathy. Patient underwent ultrasound-guided biopsy of left gluteal mass which revealed metastatic poorly differentiated carcinoma. Immunostains showed positivity for CK7, focal positive tiara 3 compatible with metastatic urothelial carcinoma. Recently hospitalized for GORDON. Creatinine peaked at 3.8. He was on Pembrolizumab and this was stopped. He was given IV hydration and discharged home since he was nonoliguric. He is here for follow-up. Creatinine is decreased to 2.9. Overall he feels okay no specific complaints today. He has a follow-up appointment with the oncologist next week 12/25/2024. Being actively followed by Oncology. Resumed enfortumab vedotin since 10/2024. Repeat PET scan on 12/03/2024 showed no abnormal SUV activity, he is in remission. 03/27/25 64-year-old male presenting with declining kidney function. He reports that there has been a slight decrease in renal function since his last evaluation. His blood pressure readings have remained within normal limits, specifically at 122/86 mmHg, and he denies any episodes of hypotension that could impair renal perfusion. He admits that his fluid intake could be more adequate, which is often a concern in maintaining renal health. The patient denies any urinary symptoms, reporting regular urination with nocturia occurring once or twice per night. Urological evaluation is planned, but no immediate imaging, like ultrasound, is scheduled unless there is further decline in renal function. He is scheduled for chemotherapy on March 31, and a cystoscopy is forthcoming on April 28. Overall, the patient continues current therapies with amlodipine and atorvastatin, and blood potassium levels will be monitored due to dietary potassium intake concerns. 05/29/25 s/p Pneumonia Waiting to see Pulmonary Nephrostomy was changed last week [facility] Medical History Pulmonary embolism Dry skin Dyspnea on exertion Left wrist pain Stiffness of left wrist joint Elevated serum creatinine Elevated blood pressure reading Hematuria Bladder mass History of immune checkpoint inhibitor therapy Hypophysitis Adrenal insufficiency Hypothyroidism Port-A-Cath in place (02/16/24) History of blood transfusion Bladder cancer Obesity (BMI 30-39.9) Pure hypercholesterolemia Hyperlipemia Carpal tunnel syndrome Surgical History Mass of left axilla (05/31/24) Hx of colonoscopy Hx of cystoscopy History of surgery History of hand surgery History of ankle surgery History of cholecystectomy Family History Father Multiple sclerosis, primary progressive Mother No problems noted. 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 Lungs entry equal no rales. Heart S1-S2 heard no gallop or rub. Abdomen soft nontender. Neuro alert awake oriented. No asterixis. Extremities no edema. Results Reviewed Nephrology Results: Hgb, (14.0-18.0) 12.1 g/dl L 05/16/25 WBC, (4.8-10.8) 5.3 X10*3/uL 05/16/25 Plt Count, (160-400) 195 X10*3/uL 05/16/25 Sodium, (135-145) 141 mmol/L 05/16/25 Potassium, (3.3-5.1) 3.8 mmol/L 05/16/25 Chloride, (96-108) 110 mmol/L H 05/16/25 Carbon Dioxide, (22-29) 22 mmol/L 05/16/25 BUN, (9-16) 19 mg/dL H 05/16/25 Creatinine, (0.5-1.4) 1.83 mg/dL H 05/16/25 Calcium, (8.4-10.2) 9.7 mg/dL 05/16/25 Renal US 05/01/25 Assessment & Plan Assessment & Plan (1) GORDON (acute kidney injury): Code(s): N17.9 - Acute kidney failure, unspecified Category: Medical (2) Adrenal insufficiency: Code(s): E27.40 - Unspecified adrenocortical insufficiency Category: Medical (3) CKD stage 3b, GFR 30-44 ml/min: Code(s): N18.32 - Chronic kidney disease, stage 3b Category: Medical (4) Invasive carcinoma of urinary bladder: Code(s): C67.9 - Malignant neoplasm of bladder, unspecified Category: Medical Plan 64-year-old man with invasive bladder carcinoma. 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 He sustained superimposed GORDON most likely due to check point inhibitors. Serum creatinine peaked at 3.8 and has subsequently decreased to 2.9. Baseline creatinine is around 2.0. creatinine close to baseline Fluid status is optimal. h/o Hypertension Blood pressure is rather low. No changes were made to his regimen. Adrenal insufficiency - prednisone switched ot Hydrocortisone- is being managed by Dr. Brady. Shall continue to follow along with the team Coding Level of Care Code Est Pt Level 4 (80988) Diagnoses GORDON (acute kidney injury) N17.9 Adrenal insufficiency E27.40 CKD stage 3b, GFR 30-44 ml/min N18.32 Invasive carcinoma of urinary bladder C67.9
[2025-05-29 11:31] VITALS: BP 100/72; BMI 28.6
--- OUTSIDE RECORDS SUMMARY | 2025-05-29 12:05 | XMS_ITS | Encounter Summary ---
Author Organization [facility] Address [address] [place] [address] Care Team Providers Care Improvement Lead Name Role Phone Morris Rizzo Primary Care Provider [phone] Encounter Details Date Type Department Care Team (Late st Contact Info) Description 04/15/2024 Orders Only [facility] [address], [address]th [place] [address] Shola Arroyo MD [address] [place] [id number] Social History Tobacco Use Types Packs/Day Years [...] on filedocumented in this encounter Care Teams Improvement Lead Relationship Specialty Start Date End Date Morris Rizzo [address] [place] [address] [place] [address] PCP - General Internal Medicine 01/09/24 documented as of this encounter
--- OUTSIDE RECORDS SUMMARY | 2025-05-29 12:06 | XMS_ITS | Encounter Summary ---
Author Organization [facility] Address [address] [place] [address] Care Team Providers Care Dialer Name Role Phone Morris Rizzo MD Primary Care Provider [phone] Encounter Details Date Type Department Care Team (Late st Contact Info) Description 02/03/2025 Lab Requisition [facility] - Main Lab [address] [facility] [place] [address] Alexys Puentes MD [address] [place] [id number] Chronic kidney disease, unspecified; Hyperlipidemia, unspecified; Thyrotoxicosis, [...] g/dL LAB CHEMISTRY METHOD [facility] Albumin 2.6(L) 3.2 - 5.0 g/dL LAB CHEMISTRY METHOD 02/04/2025 12:03 PM EDT [facility] Total Bilirubin 0.8 0.0 - 1.4 mg/dL LAB CHEMISTRY METHOD 02/04/2025 12:03 PM [facility] Bilirubin, Direct 0.2 0.0 - 0.3 mg/dL LAB CHEMISTRY METHOD 02/04/2025 12:03 PM [facility] Bilirubin, Indirect 0.6 0.0 - 1.1 mg/dL LAB CHEMISTRY METHOD 02/04/2025 12:03 PM [facility] ALT (SGPT) 52 10 - 60 unit/L LAB CHEMISTRY METHOD 02/04/2025 12:03 PM [facility] AST (SGOT) 27 10 - 42 unit/L LAB CHEMISTRY METHOD 02/04/2025 12:03 PM [facility] Alkaline Phosphatase 128(H) 42 - 121 unit/L LAB CHEMISTRY METHOD 02/04/2025 12:03 PM [facility] Blood Venous blood specimen / Unknown Venipuncture / Unknown 02/04/2025 8:05 AM EDT 02/04/2025 10:03 AM EDT us Alexys Puentes MD LAB BLOOD ORDERABLES Final Result [facility] [address] [place], [place] [address] [phone] * (ABNORMAL) Basic metabolic panel (02/04/2025 8:05 AM EDT) Sodium 138 133 - 145 mmol/L LAB CHEMISTRY METHOD 02/04/2025 12:03 PM [facility] Potassium 3.4(L) 3.5 - 5.5 mmol/L LAB CHEMISTRY METHOD 02/04/2025 12:03 PM [facility] Chloride 105 96 - 110 mmol/L LAB CHEMISTRY METHOD 02/04/2025 12:03 PM [facility] CO2 27 21 - 32 mmol/L LAB CHEMISTRY METHOD 02/04/2025 12:03 PM [facility] Anion Gap 6 3 - 11 LAB CHEMISTRY METHOD 02/04/2025 12:03 PM [facility] Glucose 75 70 - 100 mg/dL LAB CHEMISTRY METHOD 02/04/2025 12:03 PM [facility] BUN 34(H) 5 - 25 mg/dL LAB CHEMISTRY METHOD 02/04/2025 12:03 PM [facility] Creatinine 1.66(H) 0.70 - 1.30 mg/dL LAB CHEMISTRY METHOD 02/04/2025 12:03 PM [facility] eGFR 45(L) >=60 mL/min/1. 73m2 LAB CHEMISTRY METHOD 02/04/2025 12:03 PM [facility] Comment:Calculation based on the Chronic Kidney Disease Epidemiology Collaboration (CKD-EPI) equation refit without adjustment for race. BUN/Creatinine Ratio 20.5 LAB CHEMISTRY METHOD 02/04/2025 12:03 PM [facility] Calcium 8.9 8.5 - 10.5 mg/dL LAB CHEMISTRY METHOD 02/04/2025 12:03 PM [facility] Blood Venous blood specimen / Unknown Venipuncture / Unknown 02/04/2025 8:05 AM EDT 02/04/2025 10:03 AM EDT us Alexys Puentes MD LAB BLOOD ORDERABLES Final Result [facility] [address] [place] [address], [place] [phone] * (ABNORMAL) Complete blood count (02/04/2025 8:05 AM EDT) WBC 4.8 4.8 - 10.8 K/mcL LAB HEMETOLOGY METHOD 02/04/2025 11:16 AM EDT [facility] RBC 3.10(L) 4.50 - 5.50 M/mcL LAB HEMETOLOGY METHOD 02/04/2025 11:16 AM [facility] Hemoglobin 9.9(L) 13.5 - 17.5 g/dL LAB HEMETOLOGY METHOD 02/04/2025 11:16 AM [facility] Hematocrit 29.6(L) 42.0 - 54.0 % LAB HEMETOLOGY METHOD 02/04/2025 11:16 AM [facility] MCV 97.0 79.0 - 98.0 FL LAB HEMETOLOGY METHOD 02/04/2025 11:16 AM [facility] MCH 32.5(H) 27.0 - 32.0 pcg LAB HEMETOLOGY METHOD 02/04/2025 11:16 AM [facility] MCHC 33.4 32.0 - 37.0 g/dL LAB HEMETOLOGY METHOD 02/04/2025 11:16 AM [facility] RDW 19.0(H) 11.0 - 15.0 % LAB HEMETOLOGY METHOD 02/04/2025 11:16 AM [facility] Platelets 120(L) 130 - 400 K/mcL LAB HEMETOLOGY METHOD 02/04/2025 11:16 AM EDT [facility] MPV 10.3 7.0 - 11.0 FL LAB HEMETOLOGY METHOD 02/04/2025 11:16 AM EDT [facility] NRBC 0.6 <1.0 % LAB HEMETOLOG METHOD 02/04/2025 11:16 AM EDT [facility] NRBC Absolute 0.03 <0.10 K/mcL LAB HEMETOLOGY METHOD 02/04/2025 11:16 AM EDT [facility] Blood Venous blood specimen / Unknown Venipuncture / Unknown 02/04/2025 8:05 AM EDT 02/04/2025 10:03 AM EDT us Alexys Puentes MD LAB BLOOD ORDERABLES Final Result [facility] [address] [place] [address], documented in this encounter Visit Diagnoses Diagnosis Chronic kidney disease, unspecified Hyperlipidemia, unspecified Thyrotoxicosis, unspecified without thyrotoxic crisis or storm documented in this encounter Care Teams Dialer Relationship Specialty Start Date End Date Morris Rizzo MD [address] [place] [id number] PCP - General Internal Medicine 05/27/22 documented as of this encounter
--- OUTSIDE RECORDS SUMMARY | 2025-05-29 12:06 | XMS_ITS | Clinical Summary ---
Author Organization [facility] Address [address] [facility] [address] [place], [place] [id number] Phone Care Team Providers Care Bell Captain Name Role Phone Unavailable Primary Care Provider [...] [place] [id number] MEDICARE PART A & B MEDICARE PART A & B MEDICARE PART A & B MEDICARE PART A & B MEDICARE PART A & B Additional Source Comments The information contained in this document represents components of the legal health record. It is not the complete legal health record.[facility]
--- OUTSIDE RECORDS SUMMARY | 2025-05-29 12:06 | XMS_ITS | Patient Health Record ---
Author Organization [facility] Address [address] [place] [address] Care Team Providers Care Pumper Gager Apprentice Name Role Phone So MCALLISTER, Primary Care Provider Unavaila Jose Doty Unavailable [phone] Eamon MCALLISTER, Zamzam Unavailable Unavailable Reason For [...] Status Risk Notes Problem Colon cancer screening (794762778) Colon cancer screening (Z12.11) Active confirmed Problem [id number] Epigastric abdominal pain (R10.13) Active confirmed Problem [id number] Encounter for screening for malignant neoplasm of colon (Z12.11) Active confirmed Problem [id number] Preprocedural examination (Z01.818) Active confirmed Encounters Encounter Location Date Provider Diagnosis [facility] [address] [place] [address] 05/30/2024 Jose Arevalo Plan Of Treatment Future Test Test Name Order Date UPPER GI ENDOSCOPY 08/23/2017 COLONOSCOPY 04/10/2019 COLONOSCOPY 04/26/2024 Insurance Providers Payer Name Payer Address Payer Phone Subscriber Number Group Number Insured Name Patient Relationship to Insured Coverage Start Date Coverage End Date MEDICARE OF [place] [address] [facility] [place] [address] [id number] JOSE CUBA Self - patient is the insured [employer] [address] [place] [address] [id number] JOSE CUBA Self - patient is the insured Medical (General) History Medical History History ICD Code Denies DE,DM,CVA,Lung disease,renal dise ase Hyperlipidemia Screening colonoscopy in Mar with Dr. Johansen revealed only hyperplastic polyps. EGD in 08/2017-small HH, normal duodenal and gastric biopsies Surgical History Surgery Date(Month/Year) Lap cholecystectomy--acalculous cholecys titis-Dr. Knutson 05/2017 Finger- infection drained 1969
== END 2025-05-29 11:46 | disposition home or self-care (01) ==
LOC: HO.HKA 11:24
PROVIDERS: PCP Internal Medicine; Visit Provider Internal Medicine Hypertension Specialist
DX: N17.9 Acute kidney failure, unspecified (principal); E27.40 Unspecified adrenocortical insufficiency; N18.32 Chronic kidney disease, stage 3b; C67.9 Malignant neoplasm of bladder, unspecified
CPT/HCPCS: 99214

== ENCOUNTER → 2025-05-29 11:23 | Outpatient (BNVA) | payer MEDICARE, OTHER, SELFPAY | PROVIDERS: PCP Internal Medicine; Visit Provider Internal Medicine Hypertension Specialist | DX: N17.9 Acute kidney failure, unspecified (principal); E27.40 Unspecified adrenocortical insufficiency; N18.32 Chronic kidney disease, stage 3b; C67.9 Malignant neoplasm of bladder, unspecified; Z93.6 Other artificial openings of urinary tract status; Z79.899 Other long term (current) drug therapy | CPT/HCPCS: 99212 ==

== ENCOUNTER 2025-05-30 06:43 | Outpatient (REF) | payer MEDICARE, OTHER, SELFPAY ==
[2025-05-30 06:55] LABS: MANUAL DIFF FLAG NO
[2025-05-30 07:34] LABS: Hematocrit 32.8 % (42.0-52.0); Hemoglobin 11.2 g/dl (14.0-18.0); Imm Gran Abs Auto 0.08 X10*3/uL (0.00-0.03); Imm Gran Pct Auto 1.6 % (0.0-0.4); Lymphocytes Absolute Auto 1.7 X10*3/uL (1.2-4.9); Mean Corpuscular HGB Conc 34.1 g/dl (31.0-36.0); Mean Corpuscular Hemoglobin 32.2 pg (27.0-33.0); Mean Corpuscular Volume 94.3 fL (80.0-98.0); NRBC Abs Auto 0.000 X10*3/uL (0.0-0.012); NRBC Pct Auto 0.0 /100WBC (0.0-0.2); Platelet Count 213 X10*3/uL (160-400); Red Blood Count 3.48 X10*6/uL (4.60-5.80); White Blood Count 5.0 X10*3/uL (4.8-10.8)
[2025-05-30 08:03] LABS: Alanine Aminotransferase 6 U/L (0-40); Albumin Level 3.8 g/dL (3.5-5.0); Alkaline Phosphatase 86 U/L (39-117); Anion Gap 16 (12-20); Aspartate Amino Transferase 35 U/L (5-37); Blood Urea Nitrogen 23 mg/dL (9-16); Calcium 9.1 mg/dL (8.4-10.2); Carbon Dioxide 20 mmol/L (22-29); Chloride 102 mmol/L (96-108); Estimated Glomerular Filt Rate 33; Magnesium 1.8 mg/dL (1.6-2.6); Potassium 3.3 mmol/L (3.3-5.1); Sodium 135 mmol/L (135-145); Total Protein 6.9 g/dL (6.5-8.0)
== END 2025-05-30 06:44 | disposition home or self-care (01) ==
LOC: HO.LAB 06:43
PROVIDERS: Visit Provider Internal Medicine
DX: C67.9 Malignant neoplasm of bladder, unspecified (principal)
CPT/HCPCS: 36415; 80053; 83735; 85025

== ENCOUNTER 2025-06-06 05:58 | Outpatient (REF) | payer MEDICARE, OTHER, SELFPAY ==
[2025-06-06 06:12] LABS: MANUAL DIFF FLAG NO
[2025-06-06 06:19] LABS: Hematocrit 32.0 % (42.0-52.0); Hemoglobin 10.9 g/dl (14.0-18.0); Imm Gran Abs Auto 0.10 X10*3/uL (0.00-0.03); Imm Gran Pct Auto 1.9 % (0.0-0.4); Lymphocytes Absolute Auto 1.5 X10*3/uL (1.2-4.9); Mean Corpuscular HGB Conc 34.1 g/dl (31.0-36.0); Mean Corpuscular Hemoglobin 31.7 pg (27.0-33.0); Mean Corpuscular Volume 93.0 fL (80.0-98.0); NRBC Abs Auto 0.000 X10*3/uL (0.0-0.012); NRBC Pct Auto 0.0 /100WBC (0.0-0.2); Platelet Count 285 X10*3/uL (160-400); Red Blood Count 3.44 X10*6/uL (4.60-5.80); White Blood Count 5.2 X10*3/uL (4.8-10.8)
[2025-06-06 06:40] LABS: Alanine Aminotransferase 7 U/L (0-40); Albumin Level 3.6 g/dL (3.5-5.0); Alkaline Phosphatase 87 U/L (39-117); Anion Gap 15 (12-20); Aspartate Amino Transferase 36 U/L (5-37); Blood Urea Nitrogen 17 mg/dL (9-16); Calcium 9.3 mg/dL (8.4-10.2); Carbon Dioxide 22 mmol/L (22-29); Chloride 106 mmol/L (96-108); Estimated Glomerular Filt Rate 34; Potassium 3.8 mmol/L (3.3-5.1); Sodium 139 mmol/L (135-145); Total Protein 6.9 g/dL (6.5-8.0)
[2025-06-06 07:58] LABS: Magnesium 1.4 mg/dL (1.6-2.6)
== END 2025-06-06 05:59 | disposition home or self-care (01) ==
LOC: HO.LAB 05:58
PROVIDERS: Visit Provider Internal Medicine
DX: C67.9 Malignant neoplasm of bladder, unspecified (principal)
CPT/HCPCS: 36415; 80053; 83735; 85025

== ENCOUNTER 2025-06-20 14:18 | Outpatient (AMB) | payer MEDICARE, OTHER, SELFPAY ==
--- OUTSIDE RECORDS SUMMARY | 2024-06-03 10:50 | XMS_ITS ---
Author Organization [facility] Address [address] [place] [phone] Care Team Providers Care Line Up Worker Name Role Phone So MCALLISTER, Primary Care Provider Unavaila Jose Doty Unavailable [phone] Eamon MCALLISTER, Zamzam Lindsay Unavailable REASON FOR VISIT colon screening Encounters Encounter Location Date Provider Diagnosis [facility] [place] [place] [facility] [address] [facility] [id number] 06/03/2024 Jose Arevalo Plan Of Treatment No Information Progress Notes * JOSE CUBADOB:1960 (64 yo M)Acc No.[id number]:06/03/2024 COLON WITH MAC Patient: JOSE LOPEZ Provider: Disha Arevalo MD :1960 A ge:63 Y S ex:Male Date:06/03/2024 Address:[address] [place] [address] [id number] Pcp:Morris Rizzo MD Subjective: * Chief Complaints: [...] Date: 06/03/2024 Generated for Sade cerda/Todd/eTransmitting on: 06/20/2025 02:24 PM EDT
--- NOTE | 2025-06-20 14:20 | A.OFFVIS_ITS ---
Intake Visit Reasons: nephrostogram follow up Intake Note: Patient present to office today for a nephrostpgram follow up Urology Medication:None blood Thinner:apixaban today's pvr: 31mls Bean Sprout Grower Required: No Accompanied by: Self / Same As Patient Allergies No Known Allergies (No Known Allergies*) Allergy (Verified 06/20/25 14:21) HPI Comments Details: 06/20/25--status post nephrostomy tube with nephrostogram. No contrast was seen entering the bladder so the nephrostomy tube was left to drainage. Nephrostomy tube site is clean dressing is changed. Urinalysis nitrite positive I will empirically place him on Cipro b.i.d. for 5 days. He is followed by Oncology receiving chemo. 04/28/25--here for cysto Follows with oncology underwent excision of left axillary mass on 05/31/2024, pathology revealed poorly differentiated carcinoma compatible with metastatic urothelial carcinoma. Patient started systemic therapy with enfortumab vedotin with pembrolizumab administered every 21 days in 06/11/2024. History of Present Illness - The patient is a 64-year-old male presenting with metastatic urothelial carcinoma. - Initially diagnosed with bladder cancer on 12/12/23, with a large tumor infiltrating the right trigone. - Underwent transurethral resection of the bladder tumor on 12/12/23. - Currently under oncology care, receiving chemotherapy. - Right hydronephrosis noted on imaging, managed with a right nephrostomy tube to optimize renal function. - Nephrostomy tube has been in place for several months, with periodic changes scheduled. Results - Office Cystoscopy-04/28/25: No gross papillary lesions observed in the bladder. - Urinalysis: Negative for blood. 01/06/25--Brady has been diagnosed with invasive bladder cancer. s/p TURBT 12/12/23. He presents with a chronic cough. The patient states he has undergone extensive diagnostic testing, all yielding negative results, including tests for RSV, influenza, and COVID-19, and a chest x-ray. He has experienced facial bruising due to a fall on the stairs but did not lose consciousness or have additional imaging. Regarding his invasive bladder cancer, The ongoing management includes chemotherapy and a right nephrostomy tube, with no noted issues at this visit. Nephrostomy tube site is c/d/i. Dressing changed. Urinalysis today 2+ leukocytes 2+ blood. I will empirically start Bactrim DS twice a day pending urine culture. I will send urine for cytology. I have discussed fu for office cysto. 10/31/24--Brady was in the ED because his nephrostomy tube came out. I have evaluated the nephrostomy tube site there is leaking around the tubing which was reconnected. The patient continues to follow-up with Heme-Onc. 09/23/24--6 month FU. Brady has been diagnosed with invasive bladder cancer. s/p TURBT 12/12/23. PET-CT performed at [facility] showed multiple subcutaneous and intramuscular nodules demonstrating [id number] FDG uptake. Predominantly in the left axilla, left gluteal region. Moderate FDG uptake corresponding to right posterolateral bladder mass. No FDG avid abdominopelvic lymphadenopathy. Patient underwent ultrasound-guided biopsy of left gluteal mass which revealed metastatic poorly differentiated carcinoma. Immunostains showed positivity for CK7, focal positive tiara 3 compatible with metastatic urothelial carcinoma. Also left axillarymass, excision: Poorly differentiated carcinoma, well-circumscribed subcutaneous nodule, completely excised; compatible with metastatic urothelial carcinoma. He is followed by Oncology. Last Neph tube change 05/23/24. He is seen by the urology nurse q 2 wks to check Nephrostomy site and change dressing. Will sched Neph tube change in 8-10 weeks. 03/28/24--Brady has been diagnosed with invasive bladder cancer. s/p TURBT 12/12/23. Clinical stage T2/[address] chest and bone scan did not show evidence of metastatic disease. He had placement of right nephrostomy tube in the right kidney on 02/12/2024. He started on neoadjuvant chemotherapy 02/27/2024. He has had consultation with Dr. Lawrence at [facility] who has discussed radical cystoprostatectomy with possible continent diversion. He states he is scheduled to have a colonoscopy prior to procedure and tentative date for cystectomy in July. He feels he is tolerating the chemotheray well. I have evaluated the right nephrotomy tube site, no signes of infection, dressing changed. He has scheduled visits with my nurse to check nephrostomy. 12/27/2023--Brady is a 63-year-old male who is status post cystoscopy transurethral resection of bladder tumor on 12/12/2023. Preoperative CT scan of the abdomen and pelvis was significant for right hydronephrosis. At the time of the cystoscopy procedure I was unable to visualize the right ureteral orifice. I reviewed pathology results with the patient. Bladder tumor, transurethral resection: -Invasive urothelial carcinoma, high- grade -Tumor invades muscularis propria. I have discussed further treatment recommendations for neoadjuvant chemo with Oncology and evaluation for cystectomy, will referred to Dr. Melinda Orr. 11/22/2023--Brady is a very pleasant 63-year-old male patient of Dr. Rizzo. He has a past medical history hyperlipidemia, obesity, and carpal tunnel syndrome. He presents to the office today for a cystoscopy. Of note, patient was seen approximately 2 weeks ago as a new patient for gross hematuria that initially started 10/14. He had underwent imaging with PCP prior to his new patient appointment here at which time retroperitoneal ultrasound noted right-sided bladder mass with moderate right-sided hydronephrosis. This is likely responsible for the right sided hydronephrosis. Mildly enlarged prostate. Urine cytology from last office visit 11/14--Suspicious for high-grade urothelial carcinoma. He does report a 25-30 year smoking history of approximately 1 pack per day however quit approximately 13 years ago. He does report noting episodes of dysuria with gross hematuria he otherwise denies urinary urgency, urinary frequency, incontinence, nocturia, hematuria, foul smelling urine, changes to urinary stream, flank pain, fever, and or chills. He is happy with his current voiding parameters. He denies any known chemical exposure. In review of patient's chart it appears PSAs are as follows: 11/13--0.5, 10/14--0.8. In office cystoscopy performed: Large right bladder mass noted unable to differentiate UO. Discussed further treatment options with cystoscopy TURBT. Discussed risks and benefits at length. Discussed potential for right-sided ureteral stent placement given position of bladder tumor and retroperitoneal ultrasound noting right-sided hydronephrosis. All questions were answered. Discussed obtaining CT urogram for further assessment evaluation as well as labs [facility] Medical History Pulmonary embolism Dry skin Dyspnea on exertion Left wrist pain Stiffness of left wrist joint Elevated serum creatinine Elevated blood pressure reading Hematuria Bladder mass History of immune checkpoint inhibitor therapy Hypophysitis Adrenal insufficiency Hypothyroidism Port-A-Cath in place (02/16/24) History of blood transfusion Bladder cancer Obesity (BMI 30-39.9) Pure hypercholesterolemia Hyperlipemia Carpal tunnel syndrome Surgical History Mass of left axilla (05/31/24) Hx of colonoscopy Hx of cystoscopy History of surgery History of hand surgery History of ankle surgery History of cholecystectomy Family History Father Multiple sclerosis, primary progressive Mother No problems noted. 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 Current occupational exposures/hazards: No Cognitive needs: No Hearing needs: No Vision needs: Yes (Glasses) Review of Systems Const All systems reviewed & are unremarkable except as noted in HPI and below Reports no additional complaints Eyes Reports no additional complaints ENT Reports no additional complaints Card Reports no additional complaints Resp Reports no additional complaints GI Reports no additional complaints Reports as per HPI Musc Reports no additional complaints Skin/Breast Reports system reviewed and no additional complaints, except as documented Neuro Reports no additional complaints Psych Reports no additional complaints Endo Reports no additional complaints Phil/Lymph Reports no additional complaints Aller/Immun Reports no additional complaints Office Procedures Post Void Residual Post Residual Void Post Void Residual (PVR): 31 [id number] Void Residual by ultrasound Results AMB Urinalysis, Automated UA Leukoctes 500 Arnold/uL Last Edit by MAG Argueta on 06/20/25 14:37 UA Nitrite Positive Last Edit by MAG Argueta on 06/20/25 14:37 UA Urobilinogen 3.5 mg/dL Last Edit by MAG Argueta on 06/20/25 14:3 7 UA Protein 15 mg/dL Last Edit by [facility]ileen Smith [facility] on 06/20/25 14:37 UA pH 6.0 Last Edit by Aileen Smith [facility] on 06/20/25 14:37 UA Blood 0 Kaveh/uL Last Edit by Aileen Simth [facility] on 06/20/25 14:37 UA Specific [place] 1.015 Last Edit by Aileen Smith [facility] on 06/20/25 14: 37 UA Ketone Negative Last Edit by Aileen Smith [facility] on 06/20/25 14:37 UA Bilirubin 0 mg/dL Last Edit by Aileen Smith [facility] on 06/20/25 14:37 UA Glucose 0 mg/dL Last Edit by Aileen Smith [facility] on 06/20/25 14:37 Results Reviewed Results Reviewed: Laboratory Last Values Urine pH (Auto) 6.0 06/20/25 14:36 Specific [place] (Auto) 1.015 06/20/25 14:36 Urine Protein (Auto) 15 mg/dL 06/20/25 14:36 Glucose (UA)(Auto) 0 mg/dL 06/20/25 14:36 Urine Ketones (Auto) Negative 06/20/25 14:36 Urine Blood (Auto) 0 Kaveh/uL 06/20/25 14:36 Urine Nitrite (Auto) Positive 06/20/25 14:36 Urine Bilirubin (Auto) 0 mg/dL 06/20/25 14:36 Urine Urobilinogen (Auto) 3.5 mg/dL 06/20/25 14:36 Leukocyte Esterase (Auto) 500 Arnold/uL 06/20/25 14:36 Assessment & Plan Assessment & Plan (1) CKD stage 3b, GFR 30-44 ml/min: Code(s): N18.32 - Chronic kidney disease, stage 3b Category: Medical (2) Malignant neoplasm metastatic from bladder: Code(s): C67.9 - Malignant neoplasm of bladder, unspecified Category: Surgical (3) Invasive carcinoma of urinary bladder: Code(s): C67.9 - Malignant neoplasm of bladder, unspecified Category: Medical (4) Hydronephrosis: Code(s): N13.30 - Unspecified hydronephrosis Category: Medical (5) UTI (urinary tract infection): Code(s): N39.0 - Urinary tract infection, site not specified Category: Medical Plan Plan - nephrostomy tube changes PRN - Continue oncology follow-up for chemotherapy management. - Cipro 500 mg twice a day for 5 days Orders: Orders AMB Urinalysis Automated Today Z13.9 - Encounter for screening, unspecified AMB Post Void Residual by ultrasound Today N39.0 - Urinary tract infection, site not specified Medications: New ciprofloxacin HCl 500 mg PO BID 10 tabs 0RF Patient Instructions: The patient had an opportunity to ask questions regarding treatment plan. The patient expressed understanding and agreement with the above treatment plan. The patient is aware they should contact our office by phone for worsening of their current condition or the appearance of new symptoms. Compliance is encouraged with any medications and followup testing that is ordered. It is a privilege to be allowed the opportunity to participate in the urologic care of your patient. If you have any questions or concerns regarding treatment for the above conditions please do not hesitate to contact me. The office telephone contact is [phone]. This note is constructed in part using voice recognition software. While every effort has been made to ensure accuracy inspector open die errors may have been included. Yours sincerely, Sangita Hopkins MD Coding Level of Care Code Est Pt Level 3 (83979) Complex EM visit Add On G2211 Diagnoses CKD stage 3b, GFR 30-44 ml/min N18.32 Malignant neoplasm metastatic from bladder C67.9 Invasive carcinoma of urinary bladder C67.9 Hydronephrosis N13.30 UTI (urinary tract infection) N39.0 CPT Codes Post Residual Void - PVR CPT Code: 55123-[place]ak Void Residual by ultrasound ([id number])
--- OUTSIDE RECORDS SUMMARY | 2025-06-20 14:23 | XMS_ITS | Encounter Summary ---
Author Organization [facility] Address [address] [place] [address] Care Team Providers Care Senior Policy Advisor Name Role Phone Morris Rizzo Primary Care Provider [phone] Encounter Details Date Type Department Care Team (Late st Contact Info) Description 04/15/2024 Orders Only [facility] [address] [place] [address] Shola Arroyo MD [address] [place] [id number] Social History Tobacco Use Types Packs/Day Years [...] on filedocumented in this encounter Care Teams Senior Policy Advisor Relationship Specialty Start Date End Date Morris Rizzo [address] [place] [address] [place] [address] PCP - General Internal Medicine 01/09/24 documented as of this encounter
--- OUTSIDE RECORDS SUMMARY | 2025-06-20 14:24 | XMS_ITS | Encounter Summary ---
Author Organization [facility] Address [address] [place] [address] Care Team Providers Care Analysis Director Name Role Phone Morris Rizzo MD Primary Care Provider [phone] Encounter Details Date Type Department Care Team (Late st Contact Info) Description 02/10/2025 Lab Requisition [facility] - Main Lab [address] [facility] [place] [address] Alexys Puentes MD [address] [place] [address] Chronic kidney disease, unspecified; Hyperlipidemia, unspecified; Thyrotoxicosis, unspecified without thyrotoxic crisis or storm; Disorder of thyroid, unspecified Social History Tobacco Use Types Packs/Day Years [...] Procedure Name Priority Date/Time Associated Diagnosis Comments THYROID STIMULATING HORMONE WITH REFLEX TO FREE T4 AND FREE T3 Routine 02/11/2025 7:58 AM EDT Chronic kidney disease, unspecified Hyperlipidemia, unspecified Thyrotoxicosis, unspecified without thyrotoxic crisis or storm Disorder of thyroid, unspecified COMPLETE BLOOD COUNT Routine 02/11/2025 7:58 AM EDT Chronic kidney disease, unspecified Hyperlipidemia, unspecified Thyrotoxicosis, unspecified without thyrotoxic crisis or storm Disorder of thyroid, unspecified BASIC METABOLIC PANEL Routine 02/11/2025 7:58 AM EDT Chronic kidney disease, unspecified Hyperlipidemia, unspecified Thyrotoxicosis, unspecified without thyrotoxic crisis or storm Disorder of thyroid, unspecified documented in this encounter Results * Thyroid stimulating hormone with reflex to free t4 and free t3 (02/11/2025 7:58 AM EDT) Pathologist [facility] TSH 2.86 0.40 - 4.00 mcIU/mL LAB CHEMISTRY METHOD 02/11/2025 1:02 PM EDT [facility] Blood Venous blood specimen / Unknown Venipuncture / Unknown 02/11/2025 7:58 AM EDT 02/11/2025 9:08 AM EDT Alexys Puentes MD LAB BLOOD ORDERABLES Final Result [facility] [address] [place] [address], * (ABNORMAL) Basic metabolic panel (02/11/2025 7:58 AM EDT) [facility] Sodium 143 133 - 145 mmol/L LAB CHEMISTRY METHOD 02/11/2025 11:11 AM [facility] Potassium 4.4 3.5 - 5.5 mmol/L LAB CHEMISTRY METHOD 02/11/2025 11:11 AM [facility] Chloride 109 96 - 110 mmol/L LAB CHEMISTRY METHOD 02/11/2025 11:11 AM [facility] CO2 27 21 - 32 mmol/L LAB CHEMISTRY METHOD 02/11/2025 11:11 AM [facility] Anion Gap 7 3 - 11 LAB CHEMISTRY METHOD 02/11/2025 11:11 AM [facility] Glucose 89 70 - 100 mg/dL LAB CHEMISTRY METHOD 02/11/2025 11:11 AM [facility] BUN 31(H) 5 - 25 mg/dL LAB CHEMISTRY METHOD 02/11/2025 11:11 AM EDT [facility] Creatinine 1.67(H) 0.70 - 1.30 mg/dL LAB CHEMISTRY METHOD 02/11/2025 11:11 AM EDT [facility] eGFR 45(L) >=60 mL/min/1. 73m2 LAB CHEMISTRY METHOD 02/11/2025 11:11 AM EDT [facility] Comment:Calculation based on the Chronic Kidney Disease Epidemiology Collaboration (CKD-EPI) equation refit without adjustment for race. BUN/Creatinine Ratio 18.6 LAB CHEMISTRY METHOD 02/11/2025 11:11 AM EDT [facility] Calcium 8.7 8.5 - 10.5 mg/dL LAB CHEMISTRY METHOD 02/11/2025 11:11 AM [facility] Blood Venous blood specimen / Unknown Venipuncture / Unknown 02/11/2025 7:58 AM EDT 02/11/2025 9:08 AM EDT us Alexys Puentes MD LAB BLOOD ORDERABLES Final Result [facility] [address] [place] [address], * (ABNORMAL) Complete blood count (02/11/2025 7:58 AM EDT) WBC 5.0 4.8 - 10.8 K/mcL LAB HEMETOLOGY METHOD 02/11/2025 10:45 AM EDT [facility] RBC 2.90(L) 4.50 - 5.50 M/mcL LAB HEMETOLOGY METHOD 02/11/2025 10:45 AM EDT [facility] Hemoglobin 9.4(L) 13.5 - 17.5 g/dL LAB HEMETOLOGY METHOD 02/11/2025 10:45 AM EDT [facility] Hematocrit 29.0(L) 42.0 - 54.0 % LAB HEMETOLOGY METHOD 02/11/2025 10:45 AM EDT [facility] MCV 101.4(H) 79.0 - 98.0 FL LAB HEMETOLOGY METHOD 02/11/2025 10:45 AM EDT [facility] MCH 32.9(H) 27.0 - 32.0 pcg LAB HEMETOLOGY METHOD 02/11/2025 10:45 AM EDT [facility] MCHC 32.4 32.0 - 37.0 g/dL LAB HEMETOLOGY METHOD 02/11/2025 10:45 AM EDT [facility] RDW 20.2(H) 11.0 - 15.0 % LAB HEMETOLOGY METHOD 02/11/2025 10:45 AM T [facility] Platelets 203 130 - 400 K/mcL LAB HEMETOLOGY METHOD 02/11/2025 10:45 AM EDT [facility] MPV 9.8 7.0 - 11.0 FL LAB HEMETOLOGY METHOD 02/11/2025 10:45 AM EDT [facility] NRBC 1.0(H) <1.0 % LAB HEMETOLOGY METHOD 02/11/2025 10:45 AM T [facility] NRBC Absolute 0.05 <0.10 K/mcL LAB HEMETOLOGY METHOD 02/11/2025 10:45 AM EDT [facility] Blood Venous blood specimen / Unknown Venipuncture / Unknown 02/11/2025 7:58 AM EDT 02/11/2025 9:08 AM EDT us Alexys Puentes MD LAB BLOOD ORDERABLES Final Result [facility] [address] [place] [address], documented in this encounter Visit Diagnoses Diagnosis Chronic kidney disease, unspecified Hyperlipidemia, unspecified Thyrotoxicosis, unspecified without thyrotoxic crisis or storm Disorder of thyroid, unspecified documented in this encounter Care Teams Analysis Director Relationship Specialty Start Date End Date Morris Rizzo MD [address] [place] [address] Drive [address] [place] [address] PCP - General Internal Medicine 05/27/22 documented as of this encounter
--- OUTSIDE RECORDS SUMMARY | 2025-06-20 14:24 | XMS_ITS | Patient Health Record ---
Author Organization [facility] Address [address] [place] [address] Care Team Providers Care Value Stream Leader Name Role Phone So MCALLISTER, Primary Care Provider Unavaila yaquelin Arevalo Jose Unavailable [phone] Eamon MCALLISTER, Zamzam Unavailable Unavailable Reason For [...] Status Risk Notes Problem Colon cancer screening (393624441) Colon cancer screening (Z12.11) Active confirmed Problem [id number] Epigastric abdominal pain (R10.13) Active confirmed Problem [id number] Encounter for screening for malignant neoplasm of colon (Z12.11) Active confirmed Problem [id number] Preprocedural examination (Z01.818) Active confirmed Plan Of Treatment Future Test Test Name Order Date UPPER GI ENDOSCOPY 08/23/2017 COLONOSCOPY 04/10/2019 COLONOSCOPY 04/26/2024 Insurance Providers Payer Name Payer Address Payer Phone Subscriber Number Group Number Insured Name Patient Relationship to Insured Coverage Start Date Coverage End Date MEDICARE OF [place] [address] [place] [id number] JOSE CUBA Self - patient is the insured [employer] [address] [place] [address] [phone] [id number] JOSE CUBA Self - patient is the insured Medical (General) History Medical History History ICD Code Denies CA,DM,CVA,Lung disease,renal dise ase Hyperlipidemia Screening colonoscopy in Mar with Dr. Johansen revealed only hyperplastic polyps. EGD in 08/2017-small HH, normal duodenal and gastric biopsies Surgical History Surgery Date(Month/Year) Lap cholecystectomy--acalculous cholecys titis-Dr. Knutson 05/2017 Finger- infection drained 1969
--- OUTSIDE RECORDS SUMMARY | 2025-06-20 14:24 | XMS_ITS | Clinical Summary ---
Author Organization [facility] Address [address] [place], [place] [id number] Phone Care Team Providers Care Gunstock Spray Unit Adjuster Name Role Phone Unavailable Primary Care Provider [...] [place] [id number] MEDICARE PART A & B MEDICARE PART A & B MEDICARE PART A & B MEDICARE PART A & B MEDICARE PART A & B Additional Source Comments The information contained in this document represents components of the legal health record. It is not the complete legal health record.[facility]
--- OUTSIDE RECORDS SUMMARY | 2025-06-20 14:24 | XMS_ITS | Encounter Summary ---
Author Organization [facility] Address [address] [place] [address] Care Team Providers Care Sand Polisher Name Role Phone Morris Rizzo MD Primary Care Provider [phone] Encounter Details Date Type Department Care Team (Late st Contact Info) Description 02/03/2025 Lab Requisition [facility] - Main Lab [address] [place] [address] Alexys Puentes MD [address] [place] [phone] Chronic kidney disease, unspecified; Hyperlipidemia, unspecified; Thyrotoxicosis, [...] g/dL LAB [facility] Albumin 2.6(L) 3.2 - 5.0 g/dL LAB CHEMISTRY METHOD 02/04/2025 12:03 PM EDT [facility] Total Bilirubin 0.8 0.0 - 1.4 mg/dL LAB CHEMISTRY METHOD 02/04/2025 12:03 PM [facility] Bilirubin, Direct 0.2 0.0 - 0.3 mg/dL LAB CHEMISTRY METHOD 02/04/2025 12:03 PM [facility] Bilirubin, Indirect 0.6 0.0 - 1.1 mg/dL LAB CHEMISTRY METHOD 02/04/2025 12:03 PM [facility] ALT (SGPT) 52 10 - 60 unit/L LAB CHEMISTRY METHOD 02/04/2025 12:03 PM [facility] AST (SGOT) 27 10 - 42 unit/L LAB CHEMISTRY METHOD 02/04/2025 12:03 PM [facility] Alkaline Phosphatase 128(H) 42 - 121 unit/L LAB CHEMISTRY METHOD 02/04/2025 12:03 PM [facility] Blood Venous blood specimen / Unknown Venipuncture / Unknown 02/04/2025 8:05 AM EDT 02/04/2025 10:03 AM EDT us Alexys Puentes MD LAB BLOOD ORDERABLES Final Result [facility] [address] [place], [place] [address] [phone] * (ABNORMAL) Basic metabolic panel (02/04/2025 8:05 AM EDT) Sodium 138 133 - 145 mmol/L LAB CHEMISTRY METHOD 02/04/2025 12:03 PM [facility] Potassium 3.4(L) 3.5 - 5.5 mmol/L LAB CHEMISTRY METHOD 02/04/2025 12:03 PM [facility] Chloride 105 96 - 110 mmol/L LAB CHEMISTRY METHOD 02/04/2025 12:03 PM [facility] CO2 27 21 - 32 mmol/L LAB CHEMISTRY METHOD 02/04/2025 12:03 PM [facility] Anion Gap 6 3 - 11 LAB CHEMISTRY METHOD 02/04/2025 12:03 PM [facility] Glucose 75 70 - 100 mg/dL LAB CHEMISTRY METHOD 02/04/2025 12:03 PM [facility] BUN 34(H) 5 - 25 mg/dL LAB CHEMISTRY METHOD 02/04/2025 12:03 PM [facility] Creatinine 1.66(H) 0.70 - 1.30 mg/dL LAB CHEMISTRY METHOD 02/04/2025 12:03 PM [facility] eGFR 45(L) >=60 mL/min/1. 73m2 LAB CHEMISTRY METHOD 02/04/2025 12:03 PM [facility] Comment:Calculation based on the Chronic Kidney Disease Epidemiology Collaboration (CKD-EPI) equation refit without adjustment for race. BUN/Creatinine Ratio 20.5 LAB CHEMISTRY METHOD 02/04/2025 12:03 PM [facility] Calcium 8.9 8.5 - 10.5 mg/dL LAB CHEMISTRY METHOD 02/04/2025 12:03 PM [facility] Blood Venous blood specimen / Unknown Venipuncture / Unknown 02/04/2025 8:05 AM EDT 02/04/2025 10:03 AM EDT us Alexys Puentes MD LAB BLOOD ORDERABLES Final Result [facility] [address] [place] [address], [place] [phone] * (ABNORMAL) Complete blood count (02/04/2025 8:05 AM EDT) WBC 4.8 4.8 - 10.8 K/mcL LAB HEMETOLOGY METHOD 02/04/2025 11:16 AM EDT [facility] RBC 3.10(L) 4.50 - 5.50 M/mcL LAB HEMETOLOGY METHOD 02/04/2025 11:16 AM [facility] Hemoglobin 9.9(L) 13.5 - 17.5 g/dL LAB HEMETOLOGY METHOD 02/04/2025 11:16 AM [facility] Hematocrit 29.6(L) 42.0 - 54.0 % LAB HEMETOLOGY METHOD 02/04/2025 11:16 AM [facility] MCV 97.0 79.0 - 98.0 FL LAB HEMETOLOGY METHOD 02/04/2025 11:16 AM [facility] MCH 32.5(H) 27.0 - 32.0 pcg LAB HEMETOLOGY METHOD 02/04/2025 11:16 AM [facility] MCHC 33.4 32.0 - 37.0 g/dL LAB HEMETOLOGY METHOD 02/04/2025 11:16 AM [facility] RDW 19.0(H) 11.0 - 15.0 % LAB HEMETOLOGY METHOD 02/04/2025 11:16 AM [facility] Platelets 120(L) 130 - 400 K/mcL LAB HEMETOLOGY METHOD 02/04/2025 11:16 AM EDT [facility] MPV 10.3 7.0 - 11.0 FL LAB HEMETOLOGY METHOD 02/04/2025 11:16 AM EDT [facility] NRBC 0.6 <1.0 % LAB HEMETOLOG METHOD 02/04/2025 11:16 AM EDT [facility] NRBC Absolute 0.03 <0.10 K/mcL LAB HEMETOLOGY METHOD 02/04/2025 11:16 AM EDT [facility] Blood Venous blood specimen / Unknown Venipuncture / Unknown 02/04/2025 8:05 AM EDT 02/04/2025 10:03 AM EDT us Alexys Puentes MD LAB BLOOD ORDERABLES Final Result [facility] [address] [place] [address], documented in this encounter Visit Diagnoses Diagnosis Chronic kidney disease, unspecified Hyperlipidemia, unspecified Thyrotoxicosis, unspecified without thyrotoxic crisis or storm documented in this encounter Care Teams Sand Polisher Relationship Specialty Start Date End Date Morris Rizzo MD [address] [place] [address] PCP - General Internal Medicine 05/27/22 documented as of this encounter
--- OUTSIDE RECORDS SUMMARY | 2025-06-20 14:24 | XMS_ITS | Clinical Summary ---
Author Organization [facility] Address [address] [place] [address] Care Team Providers Care Filler Shaker Name Role Phone Morris Rizzo Primary Care Provider [phone] Allergies No known active allergies Medications atorvastatin [...] Cessation:Counseling Given: Not Answered Comments:On and off [id number] smoking, at most 1 PPD Alcohol Use [...] 82 05/30/2024 2:01 PM EDT Temperature 37.1 C (98.8 F) 05/27/2024 7:31 AM EDT Respiratory Rate 16 05/27/2024 7:31 AM EDT [...] 05/12/2021 05/12/2011, 08/25/2007, 03/03/1999, Additional history exists COVID-19 Vaccine (2023-2 5 season) 2024 08/03/2023, 08/10/2022, 10/06/2021, Additional history exists Alcohol/Substance Use Screening 10/23/2024 Depression Screening and Follow-Up 10/23/2024 Fall Risk Screening 10/23/2024 Health Care Proxy Review 10/23/2024 Social Drivers of Health Yecenia ual Screening 10/23/2024 CT Lung Cancer Screening (Baseline) 01/22/2025 01/23/2024 Influenza Vaccine (#1) 2025 3, 08/10/2022, 10/06/2021, Additional history exists RSV Vaccine (60+ years old a nd patients) Completed 08/03/2023 Procedures * Due to [place] App[place] law, this organization might not be sharing negative HIV tests. Procedure Name Priority Date/Time Associated Diagnosis Comments AMB EXTERNAL CT CHEST, OUTSI DE RESULT 01/23/2024 from Last 3 Months or Most Recently Relevant to Health Maintenance Results * Due to [place] App[place] law, this organization might not be sharing negative HIV tests. * AMB EXTERNAL CT CHEST, OUTSIDE RESULT (01/23/2024) Anatomical Region Laterality Modality Other 01/23/2024 us Onbase [facility] AMB EXTERNAL RESULT PROCEDURE S Final Result from Last 3 Months or Most Recently Relevant to Health Maintenance Insurance MEDICARE FOR LIFE Advance Directives Documents on File Type Date Recorded Patient Coffee Sampler Expl anation Health Care Proxy 05/27/2024 7:26 AM Care Teams Filler Shaker Relationship Specialty Start Date End Date Morris Rizzo [address] [place] [address] [place] [address] PCP - General Internal Medicine 01/09/24
--- OUTSIDE RECORDS SUMMARY | 2025-06-20 14:24 | XMS_ITS | Encounter Summary ---
Author Organization [facility] Address [address] [place] [address] Care Team Providers Care Heel Buffer Name Role Phone Morris Rizzo MD Primary Care Provider [phone] Reason for Visit * Reason Onset Date Comments Appointment 06/19/2025 interim Encounter Details Date Type Department Care Team (Late st Contact Info) Description 06/19/2025 Telephone Lung Screening Program - [address] [address] Edelmira Morales MA Social History Tobacco Use Types Packs/Day Years Used Date Smoking Tobacco: Never Assessed Sex and Gender Information Value Date Recorded Sex Assigned at Not on file Legal Sex Male 8:59 PM EST Gender Identity Not on file Sexual Orientation Not on file documented as of this encounter Progress Notes * Edelmira Morales MA - 06/19/2025 9:21 AM EDT In reviewing the information provided to us, it looks like this patient won't be due to come see usfor a Lung Cancer Screening until May 07, 2026 based on the insurance guidelines set for the Lung Screening Program, which only allow one CT of the chest per year. According to our records, this patient had a PET Chest CT on May 07, 2025 at [facility] We will contact the patient about one month prior to arrange their screening. documented in this encounter Plan of Treatment Not on file documented as of this encounter Visit Diagnoses Not on filedocumented in this encounter Care Teams Heel Buffer Relationship Specialty Start Date End Date Morris Rizzo MD [address] [place] [address] PCP - General Internal Medicine 05/27/22 documented as of this encounter
--- OUTSIDE RECORDS SUMMARY | 2025-06-20 14:24 | XMS_ITS | Encounter Summary ---
Author Organization [facility] Address [address] [place] [address] Care Team Providers Care Middle [employer] Reading Teacher Name Role Phone Morris Rizzo MD Primary Care Provider [phone] Encounter Details Date Type Department Care Team (Late st Contact Info) Description 02/17/2025 Lab Requisition [facility] - Main Lab [address] [facility] [place] [address] Alexys Puentes MD [address] [place] [id number] Chronic kidney disease, unspecified; Hyperlipidemia, unspecified; Thyrotoxicosis, [...] Associated Diagnosis Comments COMPLETE BLOOD COUNT Routine 02/18/2025 6:52 AM EDT Chronic kidney disease, unspecified Hyperlipidemia, unspecified Thyrotoxicosis, unspecified without thyrotoxic crisis or storm BASIC METABOLIC PANEL Routine 02/18/2025 6:52 AM EDT Chronic kidney disease, unspecified Hyperlipidemia, unspecified Thyrotoxicosis, unspecified without thyrotoxic crisis or storm documented in this encounter Results * (ABNORMAL) Basic metabolic panel (02/18/2025 6:52 AM EDT) Sodium 138 133 - 145 mmol/L LAB CHEMISTRY METHOD 02/18/2025 11:25 AM [facility] Potassium 3.7 3.5 - 5.5 mmol/L LAB CHEMISTRY METHOD 02/18/2025 11:25 AM [facility] Chloride 107 96 - 110 mmol/L LAB CHEMISTRY METHOD 02/18/2025 11:25 AM [facility] CO2 26 21 - 32 mmol/L LAB CHEMISTRY METHOD 02/18/2025 11:25 AM [facility] Anion Gap 5 3 - 11 LAB CHEMISTRY METHOD 02/18/2025 11:25 AM [facility] Glucose 85 70 - 100 mg/dL LAB CHEMISTRY METHOD 02/18/2025 11:25 AM [facility] BUN 29(H) 5 - 25 mg/dL LAB CHEMISTRY METHOD 02/18/2025 11:25 AM [facility] Creatinine 1.67(H) 0.70 - 1.30 mg/dL LAB CHEMISTRY METHOD 02/18/2025 11:25 AM [facility] eGFR 45(L) >=60 mL/min/1. 73m2 LAB CHEMISTRY METHOD 02/18/2025 11:25 AM [facility] Comment:Calculation based on the Chronic Kidney Disease Epidemiology Collaboration (CKD-EPI) equation refit without adjustment for race. BUN/Creatinine Ratio 17.4 LAB CHEMISTRY METHOD 02/18/2025 11:25 AM [facility] Calcium 8.7 8.5 - 10.5 mg/dL LAB CHEMISTRY METHOD 02/18/2025 11:25 AM [facility] Blood Venous blood specimen / Unknown Venipuncture / Unknown 02/18/2025 6:52 AM EDT 02/18/2025 10:38 AM EDT Alexys Puentes MD LAB BLOOD ORDERABLES Final Result [facility] [address] [place] [address], * (ABNORMAL) Complete blood count (02/18/2025 6:52 AM EDT) WBC 4.2(L) 4.8 - 10.8 K/mcL LAB HEMETOLOGY METHOD 02/18/2025 10:58 AM EDT [facility] RBC 2.80(L) 4.50 - 5.50 M/mcL LAB HEMETOLOGY METHOD 02/18/2025 10:58 AM EDT [facility] Hemoglobin 9.4(L) 13.5 - 17.5 g/dL LAB HEMETOLOGY METHOD 02/18/2025 10:58 AM EDT [facility] Hematocrit 29.1(L) 42.0 - 54.0 % LAB HEMETOLOGY METHOD 02/18/2025 10:58 AM EDT [facility] MCV 103.9(H) 79.0 - 98.0 FL LAB HEMETOLOGY METHOD 02/18/2025 10:58 AM EDT [facility] MCH 33.6(H) 27.0 - 32.0 pcg LAB HEMETOLOGY METHOD 02/18/2025 10:58 AM EDT [facility] MCHC 32.3 32.0 - 37.0 g/dL LAB HEMETOLOGY METHOD 02/18/2025 10:58 AM EDT [facility] RDW 20.8(H) 11.0 - 15.0 % LAB HEMETOLOGY METHOD 02/18/2025 10:58 AM EDT [facility] Platelets 206 130 - 400 K/mcL LAB HEMETOLOGY METHOD 02/18/2025 10:58 AM EDT [facility] MPV 9.7 7.0 - 11.0 FL LAB HEMETOLOGY METHOD 02/18/2025 10:58 AM EDT [facility] NRBC 1.0(H) <1.0 % LAB HEMETOLOGY METHOD 02/18/2025 10:58 AM EDT [facility] NRBC Absolute 0.04 <0.10 K/mcL [facility] METHOD 02/18/2025 10:58 AM EDT [facility] Blood Venous blood specimen / Unknown Venipuncture / Unknown 02/18/2025 6:52 AM EDT 02/18/2025 10:37 AM EDT us Alexys Puentes MD LAB BLOOD ORDERABLES Final Result [facility] [address] [place] [address], documented in this encounter Visit Diagnoses Diagnosis Chronic kidney disease, unspecified Hyperlipidemia, unspecified Thyrotoxicosis, unspecified without thyrotoxic crisis or storm documented in this encounter Care Teams Middle [employer] Reading Teacher Relationship Specialty Start Date End Date Morris Rizzo MD [address] [place] [address] PCP - General Internal Medicine 05/27/22 documented as of this encounter
--- OUTSIDE RECORDS SUMMARY | 2025-06-20 14:24 | XMS_ITS | Clinical Summary ---
Author Organization [facility] Address [address] [place] [address] Phone Care Team Providers Care Casting Machine Set Up Operator Name Role Phone Morris Rizzo MD Primary Care Provider [phone] Encounters Date Type Department Care Team Description 06/19/2025 Telephone Lung Screening Program - [place] [address] [place] [address] Edelmira Morales MA 05/07/2025 7:11 AM EDT - 05/07/2025 11:59 PM EDT Hospital Encounter [facility] PET Scan [address] [place] [id number] Malignant neoplasm of bladder, unspecified (CMS/HCC V24, CMS/HCC V28); Malignant neoplasm of lateral wall of bladder (CMS/HCC V24, CMS/HCC V28) Discharge Disposition: Home or Self Care from Last 3 Months Social History Tobacco Use Types Packs/Day Years Used Date Smoking Tobacco: Never Assessed Sex and Gender Information Value Date Recorded Sex Assigned at Not on file Legal Sex Male 8:59 PM EST Gender Identity Not on file Sexual Orientation Not on file Plan of Treatment Health Maintenance Due Date Last Done Comments DTaP,Tdap,and Td Vaccines (1 - Tdap) 1977 Pneumococcal Vaccine: 50+ Years (1 of 1 - PCV) 2008 Zoster Vaccines (1 of 2) 2008 Abdominal Aortic Aneurysm (AAA) Screen 09/24/2022 Cholesterol Screening (Lipid Panel) 09/24/2022 Colorectal Cancer Screening: Colonoscopy 09/24/2022 Hepatitis C Screening 09/24/2022 Medicare Annual Wellness Visit 09/24/2022 Social Influencers of Health Screening 09/24/2022 Falls Risk Assessment 2023 COVID-19 Vaccine ( season) 2024 08/03/2023, 08/10/2022, 10/06/2021 Depression Screening 10/23/2024 Influenza Vaccine (#1) 2025 , 08/10/2022, 10/06/2021, Additional history exists Lung Cancer Screening (Low Dose CT) 08/19/2025 08/19/2024, 07/10/2023, 07/06/2022, Additional history exists RSV Immunization Adult Patients Completed 08/03/2023 HIB Vaccines Aged Out No longer eligi [...] age to complete this topic Meningococcal B Vaccine Aged Out No l onger eligible based on patient's age to complete this topic RSV Immunization Patients Under 20 months Aged Out No longer eligible based on [...] wall of bladder (CMS/HCC V24, CMS/HCC V28) CT LUNG SCREENING LOW DOSE Routine 08/19/2024 6:31 AM EDT Personal history of nicotine dependence from Last 3 Months or Most Recently Relevant to Health Maintenance Results * PET CT Skull to Mid [...] Signed Date: 05/08/2025 11:29 ET Workstation ID: [id number] Transcribed By: Self Edit Transcribed Date: 05/08/2025 [...] chest CTs from March 18 as well [address] scan of the abdomen from [...] Lorena Hagen Reviewed and Electronically Signed By: Lorean Hagen Signed Date: 05/08/2025 11:29 ET Workstation ID: [id number] Transcribed By: Self Edit Transcribed Date: 05/08/2025 11:19 ET Antonia Moon MD IMG NM PROCEDURES Final Result * CT LUNG SCREENING LOW DOSE (08/19/2024 6:31 AM EDT) Anatomical Region Laterality Modality Computed Tomogra phy 08/17/2024 7:23 AM EDT Narrative 08/19/2024 6:31 AM EDT [facility] Diagnostic Imaging Department [address] [place], [place] [id number] Patient: JOSE LAMBERT Chandler /Age/Sex: 1960 - 63 - M Unit#: [id number] Location/Status: [facility]/REG CLI Mnemonic/Ordering Site: [facility] Ordering Physician: SUYAPA WEST MD CT Lung Screening Low Dose - 08/17/24 - 29 Report Status:Signed Indication: Greater than 20 total pack-year smoking history, asymptomatic former smoker Technique: Low-dose CT scan of the chest obtained as a lung cancer screening study. Multiplanar reformatted images were obtained. Dose reduction technique: ASIR (Adaptive statistical iterative reconstruction) and/or AEC (automated exposure control) DLP: 119.43 mGy-cm COMPARISON: Multiple priors, the most recent dated June 2023. FINDINGS: Lack of intravenous contrast limits evaluation of the natanael, vascular structures and visualized abdominal viscera. Scan sensitivity degraded due to motion. Lungs/airways: Trachea and central airways are patent. Emphysematous changes. Atelectasis in the left lower lobe. Few scattered sub-5 mm pulmonary nodules, similar to prior. Base of the neck, mediastinum, heart, chest wall, vessels: The assessment of hilar lymphadenopathy is difficult without the use of IV contrast. Right-sided Port-A-Cath with tip in the distal SVC. No enlarged mediastinal lymph nodes. Ascending thoracic aorta measures 4.0 cm at the level of the pulmonary trunk; similar to prior. Coronary artery calcifications. Upper [...] with LDCT in 12 months. Dictating Physician: ALPA LORENZANA MD Electronically Signed by: ALPA LORENZANA MD Dic Date/Time: 08/19/24526 Sign date/Time: 08/19/24630 Procedure Note Alpa Lorenzana MD - 08/24/2024 [facility] Diagnostic Imaging Department [address] [place] [address] Patient: JOSE LAMBERTO.B./Age/Sex: 1960 - 63 - M Unit#: [id number] Location/Status: [facility]/REG CLI Mnemonic/Ordering Site: [facility] Ordering Physician: SUYAPA WEST MD CT Lung Screening Low Dose - 10/728 Report Status:Signed Indication: Greater than 20 total [...] 08/19/24630 Suyapa West MD IMG CT PROCEDURES Final Result from Last 3 Months or Most Recently Relevant to Health Maintenance Insurance MEDICARE [facility] Care Teams Casting Machine Set Up Operator Relationship Specialty Start Date End Date Morris Rizzo MD [address] [place] [address] PCP - General Internal Medicine 05/27/22
--- OUTSIDE RECORDS SUMMARY | 2025-06-20 14:24 | XMS_ITS | Encounter Summary ---
Author Organization [facility] Address [address] [place] [address] Care Team Providers Care Field Spec Name Role Phone Morris Rizzo MD Primary Care Provider [phone] Encounter Details Date Type Department Care Team (Late st Contact Info) Description 01/28/2025 Lab Requisition [facility] - Main Lab [address] [facility] [place] [address] Alexys Puentes MD [address] [place] [address] Chronic kidney disease, unspecified; Hyperlipidemia, unspecified; Hypothyroidism, unspecified Social History Tobacco Use Types Packs/Day [...] Associated Diagnosis Comments COMPLETE BLOOD COUNT Routine 01/28/2025 8:36 AM EDT Chronic kidney disease, unspecified Hyperlipidemia, unspecified Hypothyroidism, unspecified COMPREHENSIVE METABOLIC PANEL Routine 01/28/2025 8:36 AM EDT Chronic kidney disease, unspecified Hyperlipidemia, unspecified Hypothyroidism, unspecified documented in this encounter Results * (ABNORMAL) Comprehensive metabolic panel (01/28/2025 8:36 AM EDT) Sodium 135 133 - 145 mmol/L LAB CHEMISTRY METHOD 01/28/2025 11:56 AM [facility] Potassium 4.0 3.5 - 5.5 mmol/L LAB CHEMISTRY METHOD 01/28/2025 11:56 AM [facility] Chloride 101 96 - 110 mmol/L LAB CHEMISTRY METHOD 01/28/2025 11:56 AM [facility] CO2 27 21 - 32 mmol/L LAB CHEMISTRY METHOD 01/28/2025 11:56 AM [facility] Anion Gap 7 3 - 11 LAB CHEMISTRY METHOD 01/28/2025 11:56 AM [facility] Glucose 87 70 - 100 mg/dL LAB CHEMISTRY METHOD 01/28/2025 11:56 AM [facility] BUN 44(H) 5 - 25 mg/dL LAB CHEMISTRY METHOD 01/28/2025 11:56 AM [facility] Creatinine 1.39(H) 0.70 - 1.30 mg/dL LAB CHEMISTRY METHOD 01/28/2025 11:56 AM [facility] eGFR 56(L) >=60 mL/min/1. 73m2 LAB CHEMISTRY METHOD 01/28/2025 11:56 AM [facility] Comment:Calculation based on the Chronic Kidney Disease Epidemiology Collaboration (CKD-EPI) equation refit without adjustment for race. BUN/Creatinine Ratio 31.7 LAB CHEMISTRY METHOD 01/28/2025 11:56 AM [facility] Calcium 8.8 8.5 - 10.5 mg/dL LAB CHEMISTRY METHOD 01/28/2025 11:56 AM [facility] AST (SGOT) 39 10 - 42 unit/L LAB CHEMISTRY METHOD 01/28/2025 11:56 AM [facility] ALT (SGPT) 105(H) 10 - 60 unit/L LAB CHEMISTRY METHOD 01/28/2025 11:56 AM [facility] Alkaline Phosphatase 147(H) 42 - 121 unit/L LAB CHEMISTRY METHOD 01/28/2025 11:56 AM EDT [facility] Total Protein 5.5(L) 6.0 - 8.0 g/dL LAB CHEMISTRY METHOD 01/28/2025 11:56 AM [facility] Albumin 2.6(L) 3.2 - 5.0 g/dL LAB CHEMISTRY METHOD 01/28/2025 11:56 AM [facility] Total Bilirubin 0.9 0.0 - 1.4 mg/dL LAB CHEMISTRY METHOD 01/28/2025 11:56 AM T [facility] Blood Venous blood specimen / Unknown Venipuncture / Unknown 01/28/2025 8:36 AM EDT 01/28/2025 10:43 AM EDT Alexys Puentes MD LAB BLOOD ORDERABLES Final Result [facility] [address] [place] [address], * (ABNORMAL) Complete blood count (01/28/2025 8:36 AM EDT) WBC 5.1 4.8 - 10.8 K/[facility] LAB HEMETOLOGY METHOD 01/28/2025 12:04 PM [facility] RBC 3.50(L) 4.50 - 5.50 M/[facility] LAB HEMETOLOGY METHOD 01/28/2025 12:04 PM [facility] Hemoglobin 11.6(L) 13.5 - 17.5 g/dL LAB HEMETOLOGY METHOD 01/28/2025 12:04 PM [facility] Hematocrit 34.2(L) 42.0 - 54.0 % LAB HEMETOLOGY METHOD 01/28/2025 12:04 PM [facility] MCV 96.6 79.0 - 98.0 FL LAB HEMETOLOGY METHOD 01/28/2025 12:04 PM EDT [facility] MCH 32.8(H) 27.0 - 32.0 pcg LAB HEMETOLOGY METHOD 01/28/2025 12:04 PM EDT [facility] MCHC 33.9 32.0 - 37.0 g/dL LAB HEMETOLOGY METHOD 01/28/2025 12:04 PM EDT [facility] RDW 18.3(H) 11.0 - 15.0 % LAB HEMETOLOGY METHOD 01/28/2025 12:04 PM EDT [facility] Platelets 92(L) 130 - 400 K/mcL LAB HEMETOLOGY METHOD 01/28/2025 12:04 PM EDT [facility] Comment:reviewed by slide MPV 10.4 7.0 - 11.0 FL LAB HEMETOLOGY METHOD 01/28/2025 12:04 PM EDT [facility] NRBC 0.4 <1.0 % LAB HEMETOLOGY METHOD 01/28/2025 12:04 PM EDT [facility] NRBC Absolute 0.02 <0.10 K/mcL LAB HEMETOLOGY METHOD 01/28/2025 12:04 PM EDT [facility] Blood Venous blood specimen / Unknown Venipuncture / Unknown 01/28/2025 8:36 AM EDT 01/28/2025 10:43 AM EDT us Alexys Puentes MD LAB BLOOD ORDERABLES Final Result [facility] [address] [place] [address], documented in this encounter Visit Diagnoses Diagnosis Chronic kidney disease, unspecified Hyperlipidemia, unspecified Hypothyroidism, unspecified documented in this encounter Care Teams Field Spec Relationship Specialty Start Date End Date Morris Rizzo MD [address] [place] [address] PCP - General Internal Medicine 05/27/22 documented as of this encounter
--- OUTSIDE RECORDS SUMMARY | 2025-06-20 14:24 | XMS_ITS ---
Author Organization [facility] Address [address] [place] [address] Care Team Providers Care Park Guard Name Role Phone Morris Rizzo Primary Care Provider [phone] Active Problems Problem Noted Date Diagnosed Date Hyperkalemia 05/30/2024 Malignant neoplasm of overlapping sites of bladd er 03/04/2024 Other hydronephrosis 03/04/2024 Current Treatment and Therapy Plans No current plan information found. Past Treatment and Therapy Plans No past plan information found. Lifetime Dose Tracking * Chemical Lifetime Dose Automatic Entry Manual Entr y TotalDLP 1,042 mGy 1,042 mGy 0 mGy [id number] 13.5 mSv 13.5 mSv 0 mSv CTDIvol Max 11.8 mGy 11.8 mGy 0 mGy CTDIvol Min 7.3 mGy 7.3 mGy 0 mGy
== END 2025-06-20 15:01 | disposition home or self-care (01) ==
LOC: HO.HUSH 14:19
PROVIDERS: Visit Provider Urology
DX: N18.32 Chronic kidney disease, stage 3b (principal); C67.9 Malignant neoplasm of bladder, unspecified; N13.30 Unspecified hydronephrosis; N39.0 Urinary tract infection, site not specified; Z13.9 Encounter for screening, unspecified
CPT/HCPCS: 99213; G2211

== ENCOUNTER → 2025-06-20 14:18 | Outpatient (BNVA) | payer MEDICARE, OTHER, SELFPAY | PROVIDERS: Visit Provider Urology | DX: N18.32 Chronic kidney disease, stage 3b (principal); N13.30 Unspecified hydronephrosis; N39.0 Urinary tract infection, site not specified; C67.9 Malignant neoplasm of bladder, unspecified | CPT/HCPCS: 51798; 81003; 99212 ==

== ENCOUNTER 2025-06-27 06:00 | Outpatient (REF) | payer MEDICARE, OTHER, SELFPAY ==
--- OUTSIDE RECORDS SUMMARY | 2024-06-03 10:50 | XMS_ITS ---
Author Organization [facility] Address [address] [place] [address] Care Team Providers Care Prop Drawer Name Role Phone So MCALLISTER, Primary Care Provider Unavaila Jose Doty Unavailable [phone] Eamon MCALLISTER, Zamzam Lindsay Unavailable REASON FOR VISIT colon screening Encounters Encounter Location Date Provider [place] [facility] [place] [address] [facility] [id number] 06/03/2024 Jose Arevalo Plan Of Treatment No Information Progress Notes * JOSE CUBADOB:1960 (64 yo M)Acc No.[id number]:06/03/2024 COLON WITH MAC Patient: JOSE LOPEZ Provider: Disha Arevalo MD :1960 A ge:63 Y S ex:Male Date:06/03/2024 Address:[address] [place] [address] [id number] Pcp:Morris Rizzo MD Subjective: * Chief Complaints: [...] Arevalo MD Date: 06/03/2024 Generated for Sade cerda/Todd/eTelieseritting on: 06/27/2025 06:04 AM EDT
--- OUTSIDE RECORDS SUMMARY | 2025-06-27 06:04 | XMS_ITS ---
Author Organization [facility] Address [address] [place] [address] Care Team Providers Care Tool And Die Maker Level Five Name Role Phone Morris Rizzo Primary Care Provider [phone] Active Problems Problem Noted Date Diagnosed Date Hyperkalemia 05/30/2024 Malignant neoplasm of overlapping sites of bladd er 03/04/2024 Other hydronephrosis 03/04/2024 Current Treatment and Therapy Plans No current plan information found. Past Treatment and Therapy Plans No past plan information found. Lifetime Dose Tracking * Chemical Lifetime Dose Automatic Entry Manual Entr y TotalDLP 1,042 mGy 1,042 mGy 0 mGy [id number] 13.5 mSv 13.5 mSv 0 mSv CTDIvol Max 11.8 mGy 11.8 mGy 0 mGy CTDIvol Min 7.3 mGy 7.3 mGy 0 mGy
--- OUTSIDE RECORDS SUMMARY | 2025-06-27 06:04 | XMS_ITS | Encounter Summary ---
Author Organization [facility] Address [address] [place] [address] Care Team Providers Care District Operations Manager Name Role Phone Morris Rizzo MD Primary Care Provider [phone] Encounter Details Date Type Department Care Team (Late st Contact Info) Description 02/17/2025 Lab Requisition [facility] - Main Lab [address] [facility] [place] [address] Alexys Puentes MD [address] [place] [address] Chronic kidney disease, unspecified; Hyperlipidemia, unspecified; Thyrotoxicosis, [...] mmol/L LAB CHEMISTRY METHOD 02/18/2025 11:25 AM [facility] Potassium 3.7 3.5 - 5.5 mmol/L LAB CHEMISTRY METHOD 02/18/2025 11:25 AM [facility] Chloride 107 96 - 110 mmol/L LAB CHEMISTRY METHOD 02/18/2025 11:25 AM [facility] CO2 26 21 - 32 mmol/L LAB CHEMISTRY METHOD 02/18/2025 11:25 AM [facility] Anion Gap 5 3 - 11 LAB CHEMISTRY METHOD 02/18/2025 11:25 AM [facility] Glucose 85 70 - 100 mg/dL LAB CHEMISTRY METHOD 02/18/2025 11:25 AM [facility] BUN 29(H) 5 - 25 mg/dL LAB CHEMISTRY METHOD 02/18/2025 11:25 AM [facility] Creatinine 1.67(H) 0.70 - 1.30 mg/dL LAB CHEMISTRY METHOD 02/18/2025 11:25 AM [facility] eGFR 45(L) >=60 mL/min/1. 73m2 LAB CHEMISTRY METHOD 02/18/2025 11:25 AM [facility] Comment:Calculation based on the Chronic Kidney Disease Epidemiology Collaboration (CKD-EPI) equation refit without adjustment for race. BUN/Creatinine Ratio 17.4 LAB CHEMISTRY METHOD 02/18/2025 11:25 AM [facility] Calcium 8.7 8.5 - 10.5 mg/dL LAB CHEMISTRY METHOD 02/18/2025 11:25 AM [facility] Blood Venous blood specimen / Unknown Venipuncture / Unknown 02/18/2025 6:52 AM EDT 02/18/2025 10:38 AM EDT Alexys Puentes MD LAB BLOOD ORDERABLES Final Result [facility] [address] [place] [address], * (ABNORMAL) Complete blood count (02/18/2025 6:52 AM EDT) WBC 4.2(L) 4.8 - 10.8 K/mcL LAB HEMETOLOGY METHOD 02/18/2025 10:58 AM EDT [facility] RBC 2.80(L) 4.50 - 5.50 M/mcL LAB HEMETOLOGY METHOD 02/18/2025 10:58 AM EDT [facility] Hemoglobin 9.4(L) 13.5 - 17.5 g/dL LAB HEMETOLOGY METHOD 02/18/2025 10:58 AM EDT [facility] Hematocrit 29.1(L) 42.0 - 54.0 % LAB HEMETOLOGY METHOD 02/18/2025 10:58 AM EDT [facility] MCV 103.9(H) 79.0 - 98.0 FL LAB HEMETOLOGY METHOD 02/18/2025 10:58 AM EDT [facility] MCH 33.6(H) 27.0 - 32.0 pcg LAB HEMETOLOGY METHOD 02/18/2025 10:58 AM EDT [facility] MCHC 32.3 32.0 - 37.0 g/dL LAB HEMETOLOGY METHOD 02/18/2025 10:58 AM EDT [facility] RDW 20.8(H) 11.0 - 15.0 % LAB HEMETOLOGY METHOD 02/18/2025 10:58 AM EDT [facility] Platelets 206 130 - 400 K/mcL LAB HEMETOLOGY METHOD 02/18/2025 10:58 AM EDT [facility] MPV 9.7 7.0 - 11.0 FL LAB HEMETOLOGY METHOD 02/18/2025 10:58 AM EDT [facility] NRBC 1.0(H) <1.0 % LAB HEMETOLOGY METHOD 02/18/2025 10:58 AM EDT [facility] NRBC Absolute 0.04 <0.10 K/mcL [facility] METHOD 02/18/2025 10:58 AM EDT [facility] Blood Venous blood specimen / Unknown Venipuncture / Unknown 02/18/2025 6:52 AM EDT 02/18/2025 10:37 AM EDT us Alexys Puentes MD LAB BLOOD ORDERABLES Final Result [facility] [address] [place] [address], documented in this encounter Visit Diagnoses Diagnosis Chronic kidney disease, unspecified Hyperlipidemia, unspecified Thyrotoxicosis, unspecified without thyrotoxic crisis or storm documented in this encounter Care Teams District Operations Manager Relationship Specialty Start Date End Date Morris Rizzo MD [address] [place] [address] PCP - General Internal Medicine 05/27/22 documented as of this encounter
--- OUTSIDE RECORDS SUMMARY | 2025-06-27 06:04 | XMS_ITS | Encounter Summary ---
Author Organization [facility] Address [address] [place] [address] Care Team Providers Care Plant Worker Name Role Phone Morris Rizzo Primary Care Provider [phone] Encounter Details Date Type Department Care Team (Late st Contact Info) Description 04/15/2024 Orders Only [facility] [address] [facility], [address]th [place] [address] Shola Arroyo MD [address] [place] [address] Social History Tobacco Use Types Packs/Day Years [...] on filedocumented in this encounter Care Teams Plant Worker Relationship Specialty Start Date End Date Morris Rizzo [address] [place] [address] [place] [address] PCP - General Internal Medicine 01/09/24 documented as of this encounter
--- OUTSIDE RECORDS SUMMARY | 2025-06-27 06:04 | XMS_ITS | Encounter Summary ---
Author Organization [facility] Address [address] [place] [address] Care Team Providers Care Tonal Regulator Name Role Phone Morris Rizzo MD Primary Care Provider [phone] Encounter Details Date Type Department Care Team (Late st Contact Info) Description 02/03/2025 Lab Requisition [facility] - Main Lab [address] [facility] [place] [address] Alexys Puentes MD [address] [place] [address] Chronic kidney disease, unspecified; Hyperlipidemia, unspecified; Thyrotoxicosis, [...] LAB CHEMISTRY METHOD 02/04/2025 12:[address] [facility] Total Bilirubin 0.8 0.0 - 1.4 mg/dL LAB CHEMISTRY METHOD 02/04/2025 12:03 PM [facility] Bilirubin, Direct 0.2 0.0 - 0.3 mg/dL LAB CHEMISTRY METHOD 02/04/2025 12:03 PM [facility] Bilirubin, Indirect 0.6 0.0 - 1.1 mg/dL LAB CHEMISTRY METHOD 02/04/2025 12:03 PM [facility] ALT (SGPT) 52 10 - 60 unit/L LAB CHEMISTRY METHOD 02/04/2025 12:03 PM [facility] AST (SGOT) 27 10 - 42 unit/L LAB CHEMISTRY METHOD 02/04/2025 12:03 PM [facility] Alkaline Phosphatase 128(H) 42 - 121 unit/L LAB CHEMISTRY METHOD 02/04/2025 12:03 PM [facility] Blood Venous blood specimen / Unknown Venipuncture / Unknown 02/04/2025 8:05 AM EDT 02/04/2025 10:03 AM EDT us Alexys Puentes MD LAB BLOOD ORDERABLES Final Result [facility] [address] [place], [place] [address] [phone] * (ABNORMAL) Basic metabolic panel (02/04/2025 8:05 AM EDT) Sodium 138 133 - 145 mmol/L LAB CHEMISTRY METHOD 02/04/2025 12:03 PM [facility] Potassium 3.4(L) 3.5 - 5.5 mmol/L LAB CHEMISTRY METHOD 02/04/2025 12:03 PM [facility] Chloride 105 96 - 110 mmol/L LAB CHEMISTRY METHOD 02/04/2025 12:03 PM [facility] CO2 27 21 - 32 mmol/L LAB CHEMISTRY METHOD 02/04/2025 12:03 PM [facility] Anion Gap 6 3 - 11 LAB CHEMISTRY METHOD 02/04/2025 12:03 PM [facility] Glucose 75 70 - 100 mg/dL LAB CHEMISTRY METHOD 02/04/2025 12:03 PM [facility] BUN 34(H) 5 - 25 mg/dL LAB CHEMISTRY METHOD 02/04/2025 12:03 PM [facility] Creatinine 1.66(H) 0.70 - 1.30 mg/dL LAB CHEMISTRY METHOD 02/04/2025 12:03 PM [facility] eGFR 45(L) >=60 mL/min/1. 73m2 LAB CHEMISTRY METHOD 02/04/2025 12:03 PM [facility] Comment:Calculation based on the Chronic Kidney Disease Epidemiology Collaboration (CKD-EPI) equation refit without adjustment for race. BUN/Creatinine Ratio 20.5 LAB CHEMISTRY METHOD 02/04/2025 12:03 PM [facility] Calcium 8.9 8.5 - 10.5 mg/dL LAB CHEMISTRY METHOD 02/04/2025 12:03 PM [facility] Blood Venous blood specimen / Unknown Venipuncture / Unknown 02/04/2025 8:05 AM EDT 02/04/2025 10:03 AM EDT us Alexys Puentes MD LAB BLOOD ORDERABLES Final Result [facility] [address] [place] [address], [place] [phone] * (ABNORMAL) Complete blood count (02/04/2025 8:05 AM EDT) WBC 4.8 4.8 - 10.8 K/mcL LAB HEMETOLOGY METHOD 02/04/2025 11:[address] [facility] RBC 3.10(L) 4.50 - 5.50 M/mcL LAB HEMETOLOGY METHOD 02/04/2025 11:16 AM [facility] Hemoglobin 9.9(L) 13.5 - 17.5 g/dL LAB HEMETOLOGY METHOD 02/04/2025 11:16 AM [facility] Hematocrit 29.6(L) 42.0 - 54.0 % LAB HEMETOLOGY METHOD 02/04/2025 11:16 AM [facility] MCV 97.0 79.0 - 98.0 FL LAB HEMETOLOGY METHOD 02/04/2025 11:16 AM [facility] MCH 32.5(H) 27.0 - 32.0 pcg LAB HEMETOLOGY METHOD 02/04/2025 11:16 AM [facility] MCHC 33.4 32.0 - 37.0 g/dL LAB HEMETOLOGY METHOD 02/04/2025 11:16 AM [facility] RDW 19.0(H) 11.0 - 15.0 % LAB HEMETOLOGY METHOD 02/04/2025 11:16 AM [facility] Platelets 120(L) 130 - 400 K/mcL LAB HEMETOLOGY METHOD 02/04/2025 11:[address] [facility] MPV 10.3 7.0 - 11.0 FL LAB HEMETOLOGY METHOD 02/04/2025 11:[address] [facility] NRBC 0.6 <1.0 % LAB HEMETOLOG METHOD 02/04/2025 11:[address] [facility] NRBC Absolute 0.03 <0.10 K/mcL LAB HEMETOLOGY METHOD 02/04/2025 11:[address] [facility] Blood Venous blood specimen / Unknown Venipuncture / Unknown 02/04/2025 8:05 AM EDT 02/04/2025 10:03 AM EDT us Alexys Puentes MD LAB BLOOD ORDERABLES Final Result [facility] [address] [place] [address], documented in this encounter Visit Diagnoses Diagnosis Chronic kidney disease, unspecified Hyperlipidemia, unspecified Thyrotoxicosis, unspecified without thyrotoxic crisis or storm documented in this encounter Care Teams Tonal Regulator Relationship Specialty Start Date End Date Morris Rizzo MD [address] [place] [address] PCP - General Internal Medicine 05/27/22 documented as of this encounter
--- OUTSIDE RECORDS SUMMARY | 2025-06-27 06:04 | XMS_ITS | Clinical Summary ---
Author Organization [facility] Address [address] [place] [address] Phone Care Team Providers Care Dev Manager Name Role Phone Morris Rizzo MD Primary Care Provider [phone] Encounters Date Type Department Care Team Description 06/19/2025 Telephone Lung Screening Program - [place] [address] [facility] [address] [place] [phone] Edelmira Morales [place] 05/07/2025 7:11 AM EDT - 05/07/2025 11:59 PM EDT Hospital Encounter [facility] PET Scan [address] [place] [phone] Malignant neoplasm of bladder, unspecified (CMS/HCC V24, [...] Health Screening 09/24/2022 Falls Risk Assessment 2023 Depression Screening 10/23/2024 COVID-19 Vaccine ( season) 2025 08/03/2023, 08/10/2022, 10/06/2021 Influenza Vaccine (#1) 2025 , 08/10/2022, 10/06/2021, [...] Signed Date: 05/08/2025 11:29 ET Workstation ID: [id number] Transcribed By: Self Edit Transcribed Date: 05/08/2025 [...] Signed Date: 05/08/2025 11:29 ET Workstation ID: [id number] Transcribed By: Self Edit Transcribed Date: 05/08/2025 11:19 ET Antonia Moon MD IMG NM PROCEDURES Final Result * CT LUNG SCREENING LOW DOSE (08/19/2024 6:31 AM EDT) Anatomical Region Laterality Modality Computed Tomogra phy 08/17/2024 7:23 AM EDT Narrative 08/19/2024 6:31 AM EDT [facility] Diagnostic Imaging Department [address] [place], [place] [id number] Patient: JOSE LAMBERT Chandler /Age/Sex: 1960 - 63 - M Unit#: [id number] Location/Status: [facility]/REG CLI Mnemonic/Ordering Site: [facility] Ordering Physician: SUYAPA WEST MD CT [...] of intravenous contrast limits evaluation of the antanael, vascular structures and visualized abdominal viscera. Scan [...] 08/24/2024 [facility] Diagnostic Imaging Department [address] [place] [address] Patient: JOSE LAMBERTO.B./Age/Sex: 1960 - 63 - M Unit#: [id number] Location/Status: [facility]/REG CLI Mnemonic/Ordering Site: [facility] Ordering Physician: SUYAPA WEST MD CT [...] Recently Relevant to Health Maintenance Insurance [facility]ICARE [facility] Care Teams Dev Manager Relationship Specialty Start Date End Date Morris Rizzo MD [address] [place] [address] PCP - General Internal Medicine 05/27/22
--- OUTSIDE RECORDS SUMMARY | 2025-06-27 06:04 | XMS_ITS | Patient Health Record ---
Author Organization [facility] Address [address] [place] [address] Care Team Providers Care Geodetic Advisor Name Role Phone So MCALLISTER, Primary Care Provider Unavaila yaquelin Arevalo Jose Unavailable [phone] Eamon MCALLISTER, Zamzam Unavailable Unavailable Reason For [...] Status Risk Notes Problem Colon cancer screening (646952120) Colon cancer screening (Z12.11) Active confirmed Problem 81701593 Epigastric abdominal pain (R10.13) Active confirmed Problem [id number] Encounter for screening for malignant neoplasm of colon (Z12.11) Active confirmed Problem [id number] Preprocedural examination (Z01.818) Active confirmed Plan Of Treatment Future Test Test Name Order Date UPPER GI ENDOSCOPY 08/23/2017 COLONOSCOPY 04/10/2019 COLONOSCOPY 04/26/2024 Insurance Providers Payer Name Payer Address Payer Phone Subscriber Number Group Number Insured Name Patient Relationship to Insured Coverage Start Date Coverage End Date MEDICARE OF [place] [address] [place] [id number] JOSE CUBA Self - patient is the insured [employer] [address] [place] [address] [id number] JOSE CUBA Self - patient is the insured Medical (General) History Medical History History ICD Code Denies IN,DM,CVA,Lung disease,renal dise ase Hyperlipidemia Screening colonoscopy in Mar with Dr. Johansen revealed only hyperplastic polyps. EGD in 08/2017-small HH, normal duodenal and gastric biopsies Surgical History Surgery Date(Month/Year) Lap cholecystectomy--acalculous cholecys titis-Dr. Knutson 05/2017 Finger- infection drained 1969
--- OUTSIDE RECORDS SUMMARY | 2025-06-27 06:04 | XMS_ITS | Encounter Summary ---
Author Organization [facility] Address [address] [place] [address] Care Team Providers Care Pathological Technician Name Role Phone Morris Rizzo MD Primary Care Provider [phone] Encounter Details Date Type Department Care Team (Late st Contact Info) Description 01/28/2025 Lab Requisition [facility] - Main Lab [address] [facility] [place] [address] Alexys Puentes MD [address] [place] [id number] Chronic kidney disease, unspecified; Hyperlipidemia, unspecified; Hypothyroidism, [...] LAB CHEMISTRY METHOD 01/28/2025 11:56 AM EDT [facility] Total Protein 5.5(L) 6.0 - 8.0 g/dL LAB CHEMISTRY METHOD 01/28/2025 11:56 AM [facility] Albumin 2.6(L) 3.2 - 5.0 g/dL LAB CHEMISTRY METHOD 01/28/2025 11:56 AM [facility] Total Bilirubin 0.9 0.0 - 1.4 mg/dL LAB CHEMISTRY METHOD 01/28/2025 11:56 AM T [facility] Blood Venous blood specimen / Unknown Venipuncture / Unknown 01/28/2025 8:36 AM EDT 01/28/2025 10:43 AM EDT Alexys Puentes MD LAB BLOOD ORDERABLES Final Result [facility] [address] [place] [address], * (ABNORMAL) Complete blood count (01/28/2025 8:36 AM EDT) WBC 5.1 4.8 - 10.8 K/[facility] LAB HEMETOLOGY METHOD 01/28/2025 12:04 PM [facility] RBC 3.50(L) 4.50 - 5.50 M/[facility] LAB HEMETOLOGY METHOD 01/28/2025 12:04 PM [facility] Hemoglobin 11.6(L) 13.5 - 17.5 g/dL LAB HEMETOLOGY METHOD 01/28/2025 12:04 PM [facility] Hematocrit 34.2(L) 42.0 - 54.0 % LAB HEMETOLOGY METHOD 01/28/2025 12:04 PM [facility] MCV 96.6 79.0 - 98.0 FL LAB HEMETOLOGY METHOD 01/28/2025 12:04 PM EDT [facility] MCH 32.8(H) 27.0 - 32.0 pcg LAB HEMETOLOGY METHOD 01/28/2025 12:04 PM EDT [facility] MCHC 33.9 32.0 - 37.0 g/dL LAB HEMETOLOGY METHOD 01/28/2025 12:04 PM EDT [facility] RDW 18.3(H) 11.0 - 15.0 % LAB HEMETOLOGY METHOD 01/28/2025 12:04 PM EDT [facility] Platelets 92(L) 130 - 400 K/mcL LAB HEMETOLOGY METHOD 01/28/2025 12:04 PM EDT [facility] Comment:reviewed by slide MPV 10.4 7.0 - 11.0 FL LAB HEMETOLOGY METHOD 01/28/2025 12:04 PM EDT [facility] NRBC 0.4 <1.0 % LAB HEMETOLOGY METHOD 01/28/2025 12:04 PM EDT [facility] NRBC Absolute 0.02 <0.10 K/mcL LAB HEMETOLOGY METHOD 01/28/2025 12:04 PM EDT [facility] Blood Venous blood specimen / Unknown Venipuncture / Unknown 01/28/2025 8:36 AM EDT 01/28/2025 10:43 AM EDT us Alexys Puentes MD LAB BLOOD ORDERABLES Final Result [facility] [address] [place] [address], documented in this encounter Visit Diagnoses Diagnosis Chronic kidney disease, unspecified Hyperlipidemia, unspecified Hypothyroidism, unspecified documented in this encounter Care Teams Pathological Technician Relationship Specialty Start Date End Date Morris Rizzo MD [address] [place] [id number] PCP - General Internal Medicine 05/27/22 documented as of this encounter
--- OUTSIDE RECORDS SUMMARY | 2025-06-27 06:04 | XMS_ITS | Encounter Summary ---
Author Organization [facility] Address [address] [place] [address] Care Team Providers Care Senior Electrical Controls Engineer Name Role Phone Morris Rizzo MD Primary Care Provider [phone] Encounter Details Date Type Department Care Team (Late st Contact Info) Description 02/10/2025 Lab Requisition [facility] - Main Lab [address] [facility] [place] [address] Alexys Puentes MD [address] [place] [id number] Chronic kidney disease, unspecified; Hyperlipidemia, unspecified; Thyrotoxicosis, [...] free t3 (02/11/2025 7:58 AM EDT) Pathologist [facility] TSH 2.86 0.40 - 4.00 mcIU/mL LAB CHEMISTRY METHOD 02/11/2025 1:02 PM EDT [facility] Blood Venous blood specimen / Unknown Venipuncture / Unknown 02/11/2025 7:58 AM EDT 02/11/2025 9:08 AM EDT Alexys Puentes MD LAB BLOOD ORDERABLES Final Result [facility] [address] [place] [address], * (ABNORMAL) Basic metabolic panel (02/11/2025 7:58 AM EDT) [facility] Sodium 143 133 - 145 mmol/L LAB CHEMISTRY METHOD 02/11/2025 11:11 AM [facility] Potassium 4.4 3.5 - 5.5 mmol/L LAB CHEMISTRY METHOD 02/11/2025 11:11 AM [facility] Chloride 109 96 - 110 mmol/L LAB CHEMISTRY METHOD 02/11/2025 11:11 AM [facility] CO2 27 21 - 32 mmol/L LAB CHEMISTRY METHOD 02/11/2025 11:11 AM [facility] Anion Gap 7 3 - 11 LAB CHEMISTRY METHOD 02/11/2025 11:11 AM [facility] Glucose 89 70 - 100 mg/dL LAB CHEMISTRY METHOD 02/11/2025 11:11 AM [facility] BUN 31(H) 5 - 25 mg/dL LAB CHEMISTRY METHOD 02/11/2025 11:11 AM EDT [facility] Creatinine 1.67(H) 0.70 - 1.30 mg/dL LAB CHEMISTRY METHOD 02/11/2025 11:11 AM EDT [facility] eGFR 45(L) >=60 mL/min/1. 73m2 LAB CHEMISTRY METHOD 02/11/2025 11:11 AM EDT [facility] Comment:Calculation based on the Chronic Kidney Disease Epidemiology Collaboration (CKD-EPI) equation refit without adjustment for race. BUN/Creatinine Ratio 18.6 LAB CHEMISTRY METHOD 02/11/2025 11:11 AM EDT [facility] Calcium 8.7 8.5 - 10.5 mg/dL LAB CHEMISTRY METHOD 02/11/2025 11:11 AM [facility] Blood Venous blood specimen / Unknown Venipuncture / Unknown 02/11/2025 7:58 AM EDT 02/11/2025 9:08 AM EDT us Alexys Puentes MD LAB BLOOD ORDERABLES Final Result [facility] [address] [place] [address], * (ABNORMAL) Complete blood count (02/11/2025 7:58 AM EDT) WBC 5.0 4.8 - 10.8 K/mcL LAB HEMETOLOGY METHOD 02/11/2025 10:45 AM EDT [facility] RBC 2.90(L) 4.50 - 5.50 M/mcL LAB HEMETOLOGY METHOD 02/11/2025 10:45 AM EDT [facility] Hemoglobin 9.4(L) 13.5 - 17.5 g/dL LAB HEMETOLOGY METHOD 02/11/2025 10:45 AM EDT [facility] Hematocrit 29.0(L) 42.0 - 54.0 % LAB HEMETOLOGY METHOD 02/11/2025 10:45 AM EDT [facility] MCV 101.4(H) 79.0 - 98.0 FL LAB HEMETOLOGY METHOD 02/11/2025 10:45 AM EDT [facility] MCH 32.9(H) 27.0 - 32.0 pcg LAB HEMETOLOGY METHOD 02/11/2025 10:45 AM EDT [facility] MCHC 32.4 32.0 - 37.0 g/dL LAB HEMETOLOGY METHOD 02/11/2025 10:45 AM EDT [facility] RDW 20.2(H) 11.0 - 15.0 % LAB HEMETOLOGY METHOD 02/11/2025 10:45 AM T [facility] Platelets 203 130 - 400 K/mcL LAB HEMETOLOGY METHOD 02/11/2025 10:45 AM EDT [facility] MPV 9.8 7.0 - 11.0 FL LAB HEMETOLOGY METHOD 02/11/2025 10:45 AM EDT [facility] NRBC 1.0(H) <1.0 % LAB HEMETOLOGY METHOD 02/11/2025 10:45 AM T [facility] NRBC Absolute 0.05 <0.10 K/mcL LAB HEMETOLOGY METHOD 02/11/2025 10:45 AM EDT [facility] Blood Venous blood specimen / Unknown Venipuncture / Unknown 02/11/2025 7:58 AM EDT 02/11/2025 9:08 AM EDT us Alexys Puentes MD LAB BLOOD ORDERABLES Final Result [facility] [address] [place] [address], documented in this encounter Visit Diagnoses Diagnosis Chronic kidney disease, unspecified Hyperlipidemia, unspecified Thyrotoxicosis, unspecified without thyrotoxic crisis or storm Disorder of thyroid, unspecified documented in this encounter Care Teams Senior Electrical Controls Engineer Relationship Specialty Start Date End Date Morris Rizzo MD [address] [place] [address] Drive [address] [place] [address] PCP - General Internal Medicine 05/27/22 documented as of this encounter
--- OUTSIDE RECORDS SUMMARY | 2025-06-27 06:04 | XMS_ITS | Clinical Summary ---
Author Organization [facility] Address [address] [place] [address] Care Team Providers Care Workplace Rehabilitation Officer Name Role Phone Morris Rizzo Primary Care Provider [phone] Allergies No known active allergies Medications atorvastatin [...] Cessation:Counseling Given: Not Answered Comments:On and off [id number] smoking, at most 1 PPD Alcohol Use [...] 05/12/2021 05/12/2011, 08/25/2007, 03/03/1999, Additional history exists Alcohol/Substance Use Screening 10/23/2024 Depression Screening and Follow-Up 10/23/2024 Fall Risk Screening 10/23/2024 Health Care Proxy Review 10/23/2024 Social Drivers of Health Yecenia ual Screening 10/23/2024 CT Lung Cancer Screening (Baseline) 01/22/2025 01/23/2024 COVID-19 Vaccine ( 2024-2 6 season) 2025 08/03/2023, 08/10/2022, 10/06/2021, Additional history exists Influenza Vaccine (#1) 2025 , 08/10/2022, 10/06/2021, Additional history exists RSV Vaccine (60+ years old a nd patients) Completed 08/03/2023 Procedures * Due to [place] [employer] law, this organization might not be sharing negative HIV tests. Procedure Name Priority Date/Time Associated Diagnosis Comments AMB EXTERNAL CT CHEST, OUTSI DE RESULT 01/23/2024 from Last 3 Months or Most Recently Relevant to Health Maintenance Results * Due to [place] [employer] law, this organization might not be sharing negative HIV tests. * AMB EXTERNAL CT CHEST, OUTSIDE RESULT (01/23/2024) Anatomical Region Laterality Modality Other 01/23/2024 us Onbase [facility] AMB EXTERNAL RESULT PROCEDURE S Final Result from Last 3 Months or Most Recently Relevant to Health Maintenance Insurance MEDICARE [facility] Advance Directives Documents on File Type Date Recorded Patient Coverage Specialist Rn Expl anation Health Care Proxy 05/27/2024 7:26 AM Care Teams Workplace Rehabilitation Officer Relationship Specialty Start Date End Date Morris Rizzo [address] [place] [address] [place] [address] PCP - General Internal Medicine 01/09/24
--- OUTSIDE RECORDS SUMMARY | 2025-06-27 06:05 | XMS_ITS | Clinical Summary ---
Author Organization [facility] Address [address] [facility] [address] [place], [place] [id number] Phone Care Team Providers Care Employment Educational Coord Name Role Phone Unavailable Primary Care Provider [...] [place] [id number] MEDICARE PART A & B MEDICARE PART A & B MEDICARE PART A & B MEDICARE PART A & B MEDICARE PART A & B Additional Source Comments The information contained in this document represents components of the legal health record. It is not the complete legal health record.[facility]
[2025-06-27 06:14] LABS: MANUAL DIFF FLAG NO
[2025-06-27 06:16] LABS: Hematocrit 31.8 % (42.0-52.0); Hemoglobin 10.7 g/dl (14.0-18.0); Imm Gran Abs Auto 0.05 X10*3/uL (0.00-0.03); Imm Gran Pct Auto 1.0 % (0.0-0.4); Lymphocytes Absolute Auto 1.7 X10*3/uL (1.2-4.9); Mean Corpuscular HGB Conc 33.6 g/dl (31.0-36.0); Mean Corpuscular Hemoglobin 31.4 pg (27.0-33.0); Mean Corpuscular Volume 93.3 fL (80.0-98.0); NRBC Abs Auto 0.000 X10*3/uL (0.0-0.012); NRBC Pct Auto 0.0 /100WBC (0.0-0.2); Platelet Count 205 X10*3/uL (160-400); Red Blood Count 3.41 X10*6/uL (4.60-5.80); White Blood Count 4.8 X10*3/uL (4.8-10.8)
[2025-06-27 06:33] LABS: Alanine Aminotransferase 9 U/L (0-40); Albumin Level 3.7 g/dL (3.5-5.0); Alkaline Phosphatase 96 U/L (39-117); Anion Gap 14 (12-20); Aspartate Amino Transferase 31 U/L (5-37); Blood Urea Nitrogen 16 mg/dL (9-16); Calcium 9.2 mg/dL (8.4-10.2); Carbon Dioxide 24 mmol/L (22-29); Chloride 107 mmol/L (96-108); Estimated Glomerular Filt Rate 29; Magnesium 1.6 mg/dL (1.6-2.6); Potassium 3.6 mmol/L (3.3-5.1); Sodium 141 mmol/L (135-145); Total Protein 6.7 g/dL (6.5-8.0)
== END 2025-06-27 06:01 | disposition home or self-care (01) ==
LOC: HO.LAB 06:00
PROVIDERS: Visit Provider Internal Medicine
DX: C67.9 Malignant neoplasm of bladder, unspecified (principal)
CPT/HCPCS: 36415; 80053; 83735; 85025

== ENCOUNTER 2025-07-02 10:29 | Outpatient (AMB) | payer MEDICARE, OTHER, SELFPAY ==
--- OUTSIDE RECORDS SUMMARY | 2024-06-03 10:50 | XMS_ITS ---
Author Organization [facility] Address [address] [place] [address] Care Team Providers Care Cna Per Diem Name Role Phone So MCALLISTER, Primary Care Provider Unavaila Jose Doty Unavailable [phone] Eamon MCALLISTER, Zamzam Lindsay Unavailable REASON FOR VISIT colon screening Encounters Encounter Location Date Provider Diagnosis [facility] [place] [address] [facility] [id number] 06/03/2024 Jose Arevalo Plan Of Treatment No Information Progress Notes * JOSE CUBADOB:1960 (64 yo M)Acc No.[id number]:06/03/2024 COLON WITH MAC Patient: JOSE LOPEZ Provider: Disha Arevalo MD :1960 A ge:63 Y S ex:Male Date:06/03/2024 Address:[address] [place] [address] [id number] Pcp:Morris Rizzo MD Subjective: * Chief Complaints: [...] Arevalo MD Date: 06/03/2024 Generated for Sade cerda/Todd/eTransmitting on: 07/02/2025 12:47 PM EDT
--- NOTE | 2025-07-02 10:46 | MHC.PC.OV ---
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 Required: No Accompanied by: Self / Same As Patient Allergies No Known Allergies (No Known Allergies*) Allergy (Verified 07/02/25 10:47) Medication List - Last Reconciled 07/02/25 by Mckayla Wolfe PA-C albuterol sulfate 90 mcg/actuation 2 puffs inhalation Q6H PRN apixaban (Eliquis) 2.5 mg PO BID atorvastatin 20 mg PO BEDTIME 90 days codeine-guaifenesin 10-100 mg/5 mL 5 - 10 mL PO BEDTIME PRN hydrocortisone orally; Take 10 mg (1 tablet) in AM and 5 mg (half a tablet) in afternoon at 2 PM daily levothyroxine 100 mcg PO DAILY metoprolol tartrate 25 mg PO BID 90 days needle (disp) 18 G (BD Regular [place]) As directed to draw hydrocortisone in case of emergency omeprazole 20 mg PO DAILY@0630 syringe with needle (BD Luer-Shiv Syringe) As directed to be used to inject hydrocortisone in case of emergency [walker As directed] [walker with wheels As directed] Tobacco use date assessed: 07/02/25 Fall risk assessment: No Falls in past year Last assessed Fall Risk: 07/02/25 Dental Screening Dental Screen Date: 07/02/25 Did you have a dental visit in the last 12 months?: No Did you have a dental problem in the last 6 months where you did not have access to dental care?: No Was dental information given to patient?: Patient has dentist HPI f/u chronic issues HPI Details 64-year-old male with past medical history of hypercholesterolemia, obesity, neuropathy, bladder cancer, chronic kidney disease, hypothyroidism, adrenal insufficiency, hypertension last seen 03/2025 coming in for follow up. In review of the notes, patient was seen by Hematology 06/2025 continued on Eliquis 2.5 mg b.i.d., recent cystoscopy performed 04/28/2025 and right nephrostomy tube present. Consideration for Remeron for poor appetite with weight loss. Seen by urology 05/2025 continue with nephrostomy tube changes p.r.n. and given ciprofloxacin for UTI. Seen by nephrology 05/2025 no changes were made however prednisone was switch to hydrocortisone and being managed by Dr. Brady. Lastly seen by pulmonology 05/2025 maintained on Eliquis and ordered for PFT as well as CT of the chest and plan to follow up in 9 months. Presenting with bladder cancer management. The patient underwent cystoscopy in April and continues to have a tube in place, with changes occurring every four to five months. The patient is currently undergoing chemotherapy three times a month and is on a reduced dose of Eliquis. There is a history of urinary tract infection treated with antibiotics in May, with no current symptoms reported. The patient reports weight loss and poor appetite, with fluctuations between 200 and 230 pounds over the past year. Nausea and coughing spasms are noted, which may contribute to the decreased appetite. Pulmonary issues are being monitored, with a pulmonary function test scheduled for July. ON LICENSE OF [facility] Medical History Pulmonary embolism Dry skin Dyspnea on exertion Left wrist pain Stiffness of left wrist joint Elevated serum creatinine Elevated blood pressure reading Hematuria Bladder mass History of immune checkpoint inhibitor therapy Hypophysitis Adrenal insufficiency Hypothyroidism Port-A-Cath in place (02/16/24) History of blood transfusion Bladder cancer Obesity (BMI 30-39.9) Pure hypercholesterolemia Hyperlipemia Carpal tunnel syndrome Surgical History Mass of left axilla (05/31/24) Hx of colonoscopy Hx of cystoscopy History of surgery History of hand surgery History of ankle surgery History of cholecystectomy Family History Father Multiple sclerosis, primary progressive Mother No problems noted. 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 1. Little interest or pleasure in doing things: not at all 2. Feeling down, depressed, or hopeless: not at all 3. Trouble falling or staying asleep, or sleeping too much: not at all 4. Feeling tired or having little energy: several days 5. Poor appetite or overeating: not at all 6. Feeling bad about yourself - or that you are a failure or have let yourself or your family down: not at all 7. Trouble concentrating on things, such as reading the newspaper or watching television: not at all 8. Moving or speaking so slowly that other people could have noticed. Or the opposite - being so fidgety or restless that you have been moving around a lot more than usual: not at all 9. Thoughts that you would be better off or of hurting yourself in some way: not at all Total score: 1 16314 - PHQ-9 Billing: Yes Source: Developed by Drs. Brady Becerra, Alba Morales, Remy Brothers and colleagues, with an educational holly from [employer]. Thrive Questionnaire Date Thrive assessed: 07/02/25 I am a: Patient What is your living situation today?: I have a steady place to live Within the past 12 months, did the food you bought not last and you didn't have the money to get more?: Never true Within the past 12 months, did you worry whether your food would run out before you got money to buy more?: Never true Do you have trouble paying for medicines?: No Do you have trouble getting transportation to medical appointments?: No Do you have trouble paying your heating and electricity bill?: No Do you have trouble taking care of your child, family member or friend?: No Do you have trouble with day-to-day activities such as bathing, preparing meals, shopping, managing finances, etc.?: I choose not to answer this question Are you currently unemployed and looking for a job?: Yes Are you interested in more education?: No Please select the resources that you would like help with: None Currently or been in a relationship where the following occur: No concerns reported THRIVE Score: 0 AUDIT C Alcohol Use Questionnaire (AUDIT-C) 1. How often do you have a drink containing alcohol?: Monthly or less 2. How many drinks containing alcohol do you have on a typical day when you are drinking?: 1 or 2 3. How often do you have six or more drinks on one occasion?: Never Total Score: 1 RANDY-7 AMB Questionnaire RANDY-7 Date RANDY - 7 assessed: 07/02/25 Feeling nervous, anxious, or on edge: 0 = Not at all Not being able to stop or control worryin = Not at all Worrying too much about different things: 0 = Not at all Trouble relaxin = Not at all Being so restless that it is hard to sit still: 0 = Not at all Becoming easily annoyed or irritable: 0 = Not at all Feeling afraid as if something awful might happen: 0 = Not at all Total RANDY-7 score (0-4 normal; 5-9 mild; 10-14 moderate; 15-21 severe): 0 Source: Developed by Drs. Brady Becerra, Alba Morales, Remy Brothers and colleagues, with an educational holly from [employer]. RANDY-7 Assessment Billing RANDY-7 Assessment Tool: RANDY-7 Assessment 71867 Review of Systems Const Denies body aches, Denies chills, Denies fever(s), Denies headache(s) and Denies poor appetite Eyes Reports no additional complaints ENT Denies dysphagia, Denies dizziness, Denies headache(s) and Denies odynophagia Card Denies chest pain, Denies syncope, Denies edema, Denies irregular heart rhythm, Denies lightheadedness and Denies dyspnea Resp Denies cough and Denies dyspnea GI Denies abdominal pain, Denies constipation, Denies dysphagia, Denies diarrhea, Denies nausea, Denies odynophagia and Denies vomiting Reports no additional complaints Musc Reports no additional complaints and Denies abnormal gait Skin/Breast Reports system reviewed and no additional complaints, except as documented Neuro Denies abnormal gait, Denies dizziness, Denies syncope and Denies headache(s) Psych Reports no additional complaints Physical exam (Primary Care) Vital Signs: Last Vital Signs Pulse 84 07/02/25 10:48 BP 110/72 07/02/25 10:48 Pulse Ox 97 07/02/25 10:48 Oxygen Delivery Method Room Air 07/02/25 10:48 BMI result Body Mass Index 27.4 Tobacco/Smoking Status: Tobacco use Status Tobacco use date assessed 07/02/25 07/02/25 10:54 Patient Tobacco Use Status Former Tobacco user 07/02/25 10:54 Tobacco use type Cigarette 07/02/25 10:54 e-Cigarette/Vaping Use Never Used 07/02/25 10:54 PHQ-9: PHQ-9 Score PHQ-9: Total score 1 07/02/25 13:07 Thrive Assessment: Date of Thrive Assessment Date Thrive assessed 07/02/25 07/02/25 10:54 Currently or been in a relationship where the following occur: No concerns reported Const General: cooperative, healthy appearing, comfortable and no acute distress Orientation/consciousness: patient oriented x3 HENMT Head: Yes normocephalic Ears: hearing grossly normal bilaterally General nose exam: Normal external nose present Eyes General: appearance normal, both eyes and all related structures Conjunctivae: conjunctivae normal Neck Neck: Yes full ROM and Yes no lymphadenopathy Resp Effort & Inspection: normal respiratory effort Auscultation: clear to auscultation bilaterally, no crackles, no rales, no rhonchi and no wheezes Cardio Rate: regular rate Rhythm: regular rhythm Back/Spine/Pelvis Back/spine/pelvis image:  1. nephrostomy tube in place with dressing not in place and sutures not in place Skin General skin exam: no rashes or lesions noted Neuro General: patient oriented x3 Gait exam (Neuro): Normal gait present Extrem General: Yes normal to inspection, Yes full ROM and No edema Psych Affect: normal affect Attitude: cooperative Insight: Good insight present (Psych) Judgement: Good judgement present (Psych) Coding Level of Care Code Est Pt Level 3 (76586) Diagnoses Hypertension I10 Pure hypercholesterolemia E78.00 Pulmonary embolism I26.99 Adrenal insufficiency E27.40 Obesity (BMI 30-39.9) E66.9 CKD stage 3b, GFR 30-44 ml/min N18.32 Bladder cancer C67.9 Additional Codes RANDY-7 Assessment Billing - RANDY-7 Assessment Tool: RANDY-7 Assessment 01515 ([id number]) PHQ-9 - 44825 - PHQ-9 Billing: Yes ([id number]) Assessment & Plan Assessment & Plan (1) Hypertension: Code(s): I10 - Essential (primary) hypertension Category: Medical Plan: Continue on current blood pressure medication. Avoid salt intake and encourage healthy diet and regular exercise. Continue to follow with Nephrology (2) Pure hypercholesterolemia: Code(s): E78.00 - Pure hypercholesterolemia, unspecified Category: Medical Plan: Avoid foods that are high in cholesterol such as red meat, fried foods, eggs and baked goods. Triglyceride goal of less than 150 and LDL goal of less than 100. Continue on atorvastatin and ordered for repeat blood work (3) Pulmonary embolism: Code(s): I26.99 - Other pulmonary embolism without acute cor pulmonale Category: Medical Plan: Continue on Eliquis 2.5 mg b.i.d. and continue to follow up with pulmonology. Plans for PFT in the coming months (4) Adrenal insufficiency: Code(s): E27.40 - Unspecified adrenocortical insufficiency Category: Medical Plan: The patient is under endocrine management for hydrocortisone, with a follow-up scheduled in September to assess treatment efficacy and adjust as necessary. (5) Obesity (BMI 30-39.9): Code(s): E66.9 - Obesity, unspecified Category: Medical Plan: Healthy diet and regular exercise is encouraged. (6) CKD stage 3b, GFR 30-44 ml/min: Code(s): N18.32 - Chronic kidney disease, stage 3b Category: Medical Plan: Continue to avoid kidney irritants such as NSAIDs and stay well hydrated. (7) Bladder cancer: Code(s): C67.9 - Malignant neoplasm of bladder, unspecified Category: Medical Plan: The patient continues to manage bladder cancer with ongoing chemotherapy three times a month and regular cystoscopy evaluations. The tube remains in place with changes every four to five months. Follow-up with urology and hematology is ongoing to monitor treatment efficacy and manage any complications. His nephrostomy tube is in place today however the dressing is removed and the sutures are not in place. I called Urology who advised patient to come over for dressing change and patient was sent to urology office after his visit today. Plan During the visit, we discussed the ongoing management of bladder cancer, including chemotherapy and regular cystoscopy evaluations. The patient was advised to continue monitoring for urinary tract infection symptoms and to maintain regular follow-ups with urology and hematology. We also addressed the patient's weight loss and poor appetite, considering potential interventions if these issues persist. The importance of monitoring kidney function and pulmonary health was emphasized, with scheduled tests to assess these areas. Endocrine management with hydrocortisone will continue, with a follow-up planned for September. This note was constructed using voice recognition software. While every effort has been made to ensure accuracy and elevator serviceman, still areas may have been included sometimes these areas may affect the content or meeting of the given symptoms. Total time spent caring for the patient today was 20 minutes. This includes time spent before the visit reviewing the chart, time spent during the visit, and time spent after the visit and documentation. Patient was informed and verbally consented to the use of an ambient scribe for clinic note documentation during this visit. Orders: Orders Lipid Panel 07/02/25 E78.00 - Pure hypercholesterolemia, unspecified
[2025-07-02 10:48] VITALS: BP 110/72; PULSE 84; O2SAT 97; BMI 27.4
--- OUTSIDE RECORDS SUMMARY | 2025-07-02 12:47 | XMS_ITS | Encounter Summary ---
Author Organization [facility] Address [address] [place] [address] Care Team Providers Care Heart Doctor Name Role Phone Morris Rizzo Primary Care Provider [phone] Encounter Details Date Type Department Care Team (Late st Contact Info) Description 04/15/2024 Orders Only [facility] [address] [facility], [address]th [place] [address] Shola Arroyo MD [address] [place] [id number] Social History Tobacco Use Types Packs/Day Years [...] on filedocumented in this encounter Care Teams Heart Doctor Relationship Specialty Start Date End Date Morris Rizzo [address] [place] [address] [place] [address] PCP - General Internal Medicine 01/09/24 documented as of this encounter
--- OUTSIDE RECORDS SUMMARY | 2025-07-02 12:48 | XMS_ITS ---
Author Organization [facility] Address [address] [place] [address] Care Team Providers Care Engineer Assistant Name Role Phone Morris Rizzo Primary Care Provider [phone] Active Problems Problem Noted Date Diagnosed Date Hyperkalemia 05/30/2024 Malignant neoplasm of overlapping sites of bladd er 03/04/2024 Other hydronephrosis 03/04/2024 Current Treatment and Therapy Plans No current plan information found. Past Treatment and Therapy Plans No past plan information found. Lifetime Dose Tracking * Chemical Lifetime Dose Automatic Entry Manual Entr y TotalDLP 1,042 mGy 1,042 mGy 0 mGy [id number] 13.5 mSv 13.5 mSv 0 mSv CTDIvol Max 11.8 mGy 11.8 mGy 0 mGy CTDIvol Min 7.3 mGy 7.3 mGy 0 mGy
--- OUTSIDE RECORDS SUMMARY | 2025-07-02 12:48 | XMS_ITS | Patient Health Record ---
Author Organization [facility] Address [address] [place] [address] Care Team Providers Care Web Software Engineer Name Role Phone So MCALLISTER, Primary Care Provider Unavaila yaquelin Arevalo Jose Unavailable [phone] Eamon MCALLISTER, Zamzam Unavailable Unavailable Reason For [...] Status Risk Notes Problem Colon cancer screening (757730136) Colon cancer screening (Z12.11) Active confirmed Problem [id number] Epigastric abdominal pain (R10.13) Active confirmed Problem [id number] Encounter for screening for malignant neoplasm of colon (Z12.11) Active confirmed Problem [id number] Preprocedural examination (Z01.818) Active confirmed Plan Of Treatment Future Test Test Name Order Date UPPER GI ENDOSCOPY 08/23/2017 COLONOSCOPY 04/10/2019 COLONOSCOPY 04/26/2024 Insurance Providers Payer Name Payer Address Payer Phone Subscriber Number Group Number Insured Name Patient Relationship to Insured Coverage Start Date Coverage End Date MEDICARE OF [place] [address] [place] [id number] JOSE CUBA Self - patient is the insured [employer] [address] [place] [address] [id number] JOSE CUBA Self - patient is the insured Medical (General) History Medical History History ICD Code Denies NM,DM,CVA,Lung disease,renal dise ase Hyperlipidemia Screening colonoscopy in Mar with Dr. Johansen revealed only hyperplastic polyps. EGD in 08/2017-small HH, normal duodenal and gastric biopsies Surgical History Surgery Date(Month/Year) Lap cholecystectomy--acalculous cholecys titis-Dr. Knutson 05/2017 Finger- infection drained 1969
--- OUTSIDE RECORDS SUMMARY | 2025-07-02 12:48 | XMS_ITS | Clinical Summary ---
Author Organization [facility] Address [address] [facility] [address] [place], [place] [id number] Phone Care Team Providers Care Cmo Name Role Phone Unavailable Primary Care Provider [...] [place] [id number] MEDICARE PART A & B MEDICARE PART A & B MEDICARE PART A & B MEDICARE PART A & B MEDICARE PART A & B Additional Source Comments The information contained in this document represents components of the legal health record. It is not the complete legal health record.[facility]
--- OUTSIDE RECORDS SUMMARY | 2025-07-02 12:48 | XMS_ITS | Clinical Summary ---
Author Organization [facility] Address [address] [place] [address] Care Team Providers Care Drier And Evaporator Operator Name Role Phone Morris Rizzo Primary Care Provider [phone] Allergies No known active allergies Medications atorvastatin [...] Cessation:Counseling Given: Not Answered Comments:On and off [phone] smoking, at most 1 PPD Alcohol Use [...] patients) Completed 08/03/2023 Procedures * Due to [place] [employer] law, this organization might not be sharing negative HIV tests. Procedure Name Priority Date/Time Associated Diagnosis Comments AMB EXTERNAL CT CHEST, OUTSI DE RESULT 01/23/2024 from Last 3 Months or Most Recently Relevant to Health Maintenance Results * Due to [place] [employer] law, this organization might not be sharing negative HIV tests. * AMB EXTERNAL CT CHEST, OUTSIDE RESULT (01/23/2024) Anatomical Region Laterality Modality Other 01/23/2024 us Onbase [facility] AMB EXTERNAL RESULT PROCEDURE S Final Result from Last 3 Months or Most Recently Relevant to Health Maintenance Insurance MEDICARE [facility] Advance Directives Documents on File Type Date Recorded Patient Dye Range Operator Expl anation Health Care Proxy 05/27/2024 7:26 AM Care Teams Drier And Evaporator Operator Relationship Specialty Start Date End Date Morris Rizzo [address] [place] [address] [place] [address] PCP - General Internal Medicine 01/09/24
== END 2025-07-02 11:34 | disposition home or self-care (01) ==
LOC: HO.HMCH 10:30
DX: I26.99 Other pulmonary embolism without acute cor pulmonale (principal); N18.32 Chronic kidney disease, stage 3b; C67.9 Malignant neoplasm of bladder, unspecified; E66.9 Obesity, unspecified; Z68.27 Body mass index [BMI] 27.0-27.9, adult; I10 Essential (primary) hypertension; E78.00 Pure hypercholesterolemia, unspecified; E27.40 Unspecified adrenocortical insufficiency

== ENCOUNTER → 2025-07-02 10:29 | Outpatient (BNVA) | payer MEDICARE, OTHER, SELFPAY | DX: I12.9 Hypertensive chronic kidney disease with stage 1 through stage 4 chronic kidney disease, or unspecified chronic kidney disease (principal); N18.32 Chronic kidney disease, stage 3b; E78.00 Pure hypercholesterolemia, unspecified; I26.99 Other pulmonary embolism without acute cor pulmonale; E27.40 Unspecified adrenocortical insufficiency; E66.9 Obesity, unspecified; Z68.27 Body mass index [BMI] 27.0-27.9, adult; C67.9 Malignant neoplasm of bladder, unspecified; Z87.891 Personal history of nicotine dependence; Z71.3 Dietary counseling and surveillance | CPT/HCPCS: 96127; 99212 ==

== ENCOUNTER 2025-07-11 06:08 | Outpatient (REF) | payer MEDICARE, OTHER, SELFPAY ==
--- OUTSIDE RECORDS SUMMARY | 2025-07-11 06:11 | XMS_ITS | Encounter Summary ---
Author Organization [facility] Address [address] [place] [address] Care Team Providers Care Delivery Rep Name Role Phone Morris Rizzo MD Primary Care Provider [phone] Encounter Details Date Type Department Care Team (Late st Contact Info) Description 02/03/2025 Lab Requisition [facility] - Main Lab 299 [facility] [place] [address] Alexys Puentes MD [address] [place] [id number] Chronic kidney disease, unspecified; Hyperlipidemia, unspecified; Thyrotoxicosis, [...] g/dL LAB CHE[facility]STR[facility] Albumin 2.6(L) 3.2 - 5.0 g/dL LAB CHEMISTRY METHOD 02/04/2025 12:[address] [facility] Total Bilirubin 0.8 0.0 - 1.4 mg/dL LAB CHEMISTRY METHOD 02/04/2025 12:03 PM [facility] Bilirubin, Direct 0.2 0.0 - 0.3 mg/dL LAB CHEMISTRY METHOD 02/04/2025 12:03 PM [facility] Bilirubin, Indirect 0.6 0.0 - 1.1 mg/dL LAB CHEMISTRY METHOD 02/04/2025 12:03 PM [facility] ALT (SGPT) 52 10 - 60 unit/L LAB CHEMISTRY METHOD 02/04/2025 12:03 PM [facility] AST (SGOT) 27 10 - 42 unit/L LAB CHEMISTRY METHOD 02/04/2025 12:03 PM [facility] Alkaline Phosphatase 128(H) 42 - 121 unit/L LAB CHEMISTRY METHOD 02/04/2025 12:03 PM [facility] Blood Venous blood specimen / Unknown Venipuncture / Unknown 02/04/2025 8:05 AM EDT 02/04/2025 10:03 AM EDT us Alexys Puentes MD LAB BLOOD ORDERABLES Final Result [facility] [address] [place], [place] [address] [phone] * (ABNORMAL) Basic metabolic panel (02/04/2025 8:05 AM EDT) Sodium 138 133 - 145 mmol/L LAB CHEMISTRY METHOD 02/04/2025 12:03 PM [facility] Potassium 3.4(L) 3.5 - 5.5 mmol/L LAB CHEMISTRY METHOD 02/04/2025 12:03 PM [facility] Chloride 105 96 - 110 mmol/L LAB CHEMISTRY METHOD 02/04/2025 12:03 PM [facility] CO2 27 21 - 32 mmol/L LAB CHEMISTRY METHOD 02/04/2025 12:03 PM [facility] Anion Gap 6 3 - 11 LAB CHEMISTRY METHOD 02/04/2025 12:03 PM [facility] Glucose 75 70 - 100 mg/dL LAB CHEMISTRY METHOD 02/04/2025 12:03 PM [facility] BUN 34(H) 5 - 25 mg/dL LAB CHEMISTRY METHOD 02/04/2025 12:03 PM [facility] Creatinine 1.66(H) 0.70 - 1.30 mg/dL LAB CHEMISTRY METHOD 02/04/2025 12:03 PM [facility] eGFR 45(L) >=60 mL/min/1. 73m2 LAB CHEMISTRY METHOD 02/04/2025 12:03 PM [facility] Comment:Calculation based on the Chronic Kidney Disease Epidemiology Collaboration (CKD-EPI) equation refit without adjustment for race. BUN/Creatinine Ratio 20.5 LAB CHEMISTRY METHOD 02/04/2025 12:03 PM [facility] Calcium 8.9 8.5 - 10.5 mg/dL LAB CHEMISTRY METHOD 02/04/2025 12:03 PM [facility] Blood Venous blood specimen / Unknown Venipuncture / Unknown 02/04/2025 8:05 AM EDT 02/04/2025 10:03 AM EDT us Alexys Puentes MD LAB BLOOD ORDERABLES Final Result [facility] [address] [place] [address], [place] [phone] * (ABNORMAL) Complete blood count (02/04/2025 8:05 AM EDT) WBC 4.8 4.8 - 10.8 K/mcL LAB HEMETOLOGY METHOD 02/04/2025 11:[address] [facility] RBC 3.10(L) 4.50 - 5.50 M/mcL LAB HEMETOLOGY METHOD 02/04/2025 11:16 AM [facility] Hemoglobin 9.9(L) 13.5 - 17.5 g/dL LAB HEMETOLOGY METHOD 02/04/2025 11:16 AM [facility] Hematocrit 29.6(L) 42.0 - 54.0 % LAB HEMETOLOGY METHOD 02/04/2025 11:16 AM [facility] MCV 97.0 79.0 - 98.0 FL LAB HEMETOLOGY METHOD 02/04/2025 11:16 AM [facility] MCH 32.5(H) 27.0 - 32.0 pcg LAB HEMETOLOGY METHOD 02/04/2025 11:16 AM [facility] MCHC 33.4 32.0 - 37.0 g/dL LAB HEMETOLOGY METHOD 02/04/2025 11:16 AM [facility] RDW 19.0(H) 11.0 - 15.0 % LAB HEMETOLOGY METHOD 02/04/2025 11:16 AM [facility] Platelets 120(L) 130 - [...] Final Result [facility] [address] [place] [address], documented in this encounter Visit Diagnoses Diagnosis Chronic kidney disease, unspecified Hyperlipidemia, unspecified Thyrotoxicosis, unspecified without thyrotoxic crisis or storm documented in this encounter Care Teams Delivery Rep Relationship Specialty Start Date End Date Morris Rizzo MD [address] [place] [address] PCP - General Internal Medicine 05/27/22 documented as of this encounter
--- OUTSIDE RECORDS SUMMARY | 2025-07-11 06:11 | XMS_ITS | Clinical Summary ---
Author Organization [facility] Address [address] [place] [address] Phone Care Team Providers Care Medical Aide Name Role Phone Morris Rizzo MD Primary Care Provider Encounters Date Type Department Care Team Description 06/19/2025 Telephone Lung Screening Program - [place] [address] [facility] [address] [place] [phone] Edelmira Morales [place] 05/07/2025 7:11 AM EDT - 05/07/2025 11:59 PM EDT Hospital Encounter [facility] PET Scan [address] [place] [id number] Malignant neoplasm of bladder, unspecified (CMS/HCC V24, [...] Signed Date: 05/08/2025 11:29 ET Workstation ID: [id number] Transcribed By: Self Edit Transcribed Date: 05/08/2025 [...] Signed Date: 05/08/2025 11:29 ET Workstation ID: [id number] Transcribed By: Self Edit Transcribed Date: 05/08/2025 11:19 ET Antonia Moon MD IMG NM PROCEDURES Final Result * CT LUNG SCREENING LOW DOSE (08/19/2024 6:31 AM EDT) Anatomical Region Laterality Modality Computed Tomogra phy 08/17/2024 7:23 AM EDT Narrative 08/19/2024 6:31 AM EDT [facility] Diagnostic Imaging Department [address] [place], [place] [id number] Patient: JOSE LAMBERT Chandler /Age/Sex: 1960 - 63 - M Unit#: [id number] Location/Status: [facility]/REG CLI Mnemonic/Ordering Site: [facility] Ordering Physician: SUYAPA WEST MD [...] Procedure Note Alpa Lorenzana MD - 08/24/2024 [facility] Diagnostic Imaging Department [address] [place] [address] Patient: JOSE LAMBERTO.B./Age/Sex: 1960 - 63 - M Unit#: [id number] Location/Status: [facility]/REG CLI Mnemonic/Ordering Site: [facility] Ordering Physician: SUYAPA WEST MD [...] Recently Relevant to Health Maintenance Insurance MEDICARE [facility] Care Teams Medical Aide Relationship Specialty Start Date End Date Morris Rizzo MD [address] [place] [address] PCP - General Internal Medicine 05/27/22
--- OUTSIDE RECORDS SUMMARY | 2025-07-11 06:11 | XMS_ITS ---
Author Organization [facility] Address [address] [place] [address] Care Team Providers Care Buffing Turner And Counter Name Role Phone Morris Rizzo Primary Care Provider [phone] Active Problems Problem Noted Date Diagnosed Date Hyperkalemia 05/30/2024 Malignant neoplasm of overlapping sites of bladd er 03/04/2024 Other hydronephrosis 03/04/2024 Current Treatment and Therapy Plans No current plan information found. Past Treatment and Therapy Plans No past plan information found. Lifetime Dose Tracking * Chemical Lifetime Dose Automatic Entry Manual Entr y TotalDLP 1,042 mGy 1,042 mGy 0 mGy [id number] 13.5 mSv 13.5 mSv 0 mSv CTDIvol Max 11.8 mGy 11.8 mGy 0 mGy CTDIvol Min 7.3 mGy 7.3 mGy 0 mGy
--- OUTSIDE RECORDS SUMMARY | 2025-07-11 06:11 | XMS_ITS | Clinical Summary ---
Author Organization [facility] Address [address] [place] [address] Care Team Providers Care Assembly Supervisor Name Role Phone Morris Rizzo Primary Care Provider [phone] Allergies No known active allergies Medications atorvastatin [...] Cessation:Counseling Given: Not Answered Comments:On and off [id number] smoking, at most 1 PPD Alcohol Use [...] patients) Completed 08/03/2023 Procedures * Due to [place] AOI Medical law, this organization might not be sharing negative HIV tests. Procedure Name Priority Date/Time Associated Diagnosis Comments AMB EXTERNAL CT CHEST, OUTSI DE RESULT 01/23/2024 from Last 3 Months or Most Recently Relevant to Health Maintenance Results * Due to [place] AOI Medical law, this organization might not be sharing negative HIV tests. * AMB EXTERNAL CT CHEST, OUTSIDE RESULT (01/23/2024) Anatomical Region Laterality Modality Other [facility]2024 [facility] RES[facility] PROCEDURE S Final Result from Last 3 Months or Most Recently Relevant to Health Maintenance Insurance MEDICARE [facility] Advance Directives Documents on File Type Date Recorded Patient Rn Hyperbaric Expl anation Health Care Proxy 05/27/2024 7:26 AM Care Teams Assembly Supervisor Relationship Specialty Start Date End Date Morris Rizzo [address] [place] [address] [place] [address] PCP - General Internal Medicine 01/09/24
--- OUTSIDE RECORDS SUMMARY | 2025-07-11 06:11 | XMS_ITS | Encounter Summary ---
Author Organization [facility] Address [address] [place] [address] Care Team Providers Care Chemist Helper Name Role Phone Morris Rizzo MD Primary Care Provider [phone] Encounter Details Date Type Department Care Team (Late st Contact Info) Description 02/17/2025 Lab Requisition [facility] - Main Lab 299 [facility] [place] [address] Alexys Puentes MD [address] [place] [address] Chronic kidney disease, unspecified; Hyperlipidemia, unspecified; Thyrotoxicosis, [...] mmol/L LAB CHEMISTRY METHOD 02/18/2025 11:25 AM [facility] Potassium 3.7 3.5 - 5.5 mmol/L LAB CHEMISTRY METHOD 02/18/2025 11:25 AM [facility] Chloride 107 96 - 110 mmol/L LAB CHEMISTRY METHOD 02/18/2025 11:25 AM [facility] CO2 26 21 - 32 mmol/L LAB CHEMISTRY METHOD 02/18/2025 11:25 AM [facility] Anion Gap 5 3 - 11 LAB CHEMISTRY METHOD 02/18/2025 11:25 AM [facility] Glucose 85 70 - 100 mg/dL LAB CHEMISTRY METHOD 02/18/2025 11:25 AM [facility] BUN 29(H) 5 - 25 mg/dL LAB CHEMISTRY METHOD 02/18/2025 11:25 AM [facility] Creatinine 1.67(H) 0.70 - 1.30 mg/dL LAB CHEMISTRY METHOD 02/18/2025 11:25 AM [facility] eGFR 45(L) >=60 mL/min/1. 73m2 LAB CHEMISTRY METHOD 02/18/2025 11:25 AM [facility] Comment:Calculation based on the Chronic Kidney Disease Epidemiology Collaboration (CKD-EPI) equation refit without adjustment for race. BUN/Creatinine Ratio 17.4 LAB CHEMISTRY METHOD 02/18/2025 11:25 AM [facility] Calcium 8.7 8.5 - 10.5 mg/dL LAB CHEMISTRY METHOD 02/18/2025 11:25 AM [facility] Blood Venous blood specimen / Unknown Venipuncture / Unknown 02/18/2025 6:52 AM EDT 02/18/2025 10:38 AM EDT Alexys Puentes MD LAB BLOOD ORDERABLES Final Result [facility] [address] [place] [address], * (ABNORMAL) Complete blood count (02/18/2025 6:52 AM EDT) WBC 4.2(L) 4.8 - 10.8 K/mcL LAB HEMETOLOGY METHOD 02/18/2025 10:58 AM EDT [facility] RBC 2.80(L) 4.50 - 5.50 M/mcL LAB HEMETOLOGY METHOD 02/18/2025 10:58 AM EDT [facility] Hemoglobin 9.4(L) 13.5 - 17.5 g/dL LAB HEMETOLOGY METHOD 02/18/2025 10:58 AM EDT [facility] Hematocrit 29.1(L) 42.0 - 54.0 % LAB HEMETOLOGY METHOD 02/18/2025 10:58 AM EDT [facility] MCV 103.9(H) 79.0 - 98.0 FL LAB HEMETOLOGY METHOD 02/18/2025 10:58 AM EDT [facility] MCH 33.6(H) 27.0 - 32.0 pcg LAB HEMETOLOGY METHOD 02/18/2025 10:58 AM EDT [facility] MCHC 32.3 32.0 - 37.0 g/dL LAB HEMETOLOGY METHOD 02/18/2025 10:58 AM EDT [facility] RDW 20.8(H) 11.0 - 15.0 % LAB HEMETOLOGY METHOD 02/18/2025 10:58 AM EDT [facility] Platelets 206 130 - 400 K/mcL LAB HEMETOLOGY METHOD 02/18/2025 10:58 AM EDT [facility] MPV 9.7 7.0 - 11.0 FL LAB HEMETOLOGY METHOD 02/18/2025 10:58 AM EDT [facility] NRBC 1.0(H) <1.0 % LAB HEMETOLOGY METHOD 02/18/2025 10:58 AM EDT [facility] NRBC Absolute 0.04 <0.10 K/mcL [facility] METHOD 02/18/2025 10:58 AM EDT [facility] Blood Venous blood specimen / Unknown Venipuncture / Unknown 02/18/2025 6:52 AM EDT 02/18/2025 10:37 AM EDT us Alexys Puentes MD LAB BLOOD ORDERABLES Final Result [facility] [address] [place] [address], documented in this encounter Visit Diagnoses Diagnosis Chronic kidney disease, unspecified Hyperlipidemia, unspecified Thyrotoxicosis, unspecified without thyrotoxic crisis or storm documented in this encounter Care Teams Chemist Helper Relationship Specialty Start Date End Date Morris Rizzo MD [address] [place] [address] PCP - General Internal Medicine 05/27/22 documented as of this encounter
--- OUTSIDE RECORDS SUMMARY | 2025-07-11 06:11 | XMS_ITS | Clinical Summary ---
Author Organization [facility] Address [address] [facility] [address] [place], [place] [id number] Phone Care Team Providers Care Mop Handle Assembler Name Role Phone Unavailable Primary Care Provider [...] [place] [id number] MEDICARE PART A & B MEDICARE PART A & B MEDICARE PART A & B MEDICARE PART A & B MEDICARE PART A & B Additional Source Comments The information contained in this document represents components of the legal health record. It is not the complete legal health record.[facility]
--- OUTSIDE RECORDS SUMMARY | 2025-07-11 06:11 | XMS_ITS | Encounter Summary ---
Author Organization [facility] Address [address] [place] [address] Care Team Providers Care Press Tender Long Goods Name Role Phone Morris Rizzo MD Primary Care Provider [phone] Encounter Details Date Type Department Care Team (Late st Contact Info) Description 01/28/2025 Lab Requisition [facility] - Main Lab [address] [facility] [place] [address] Alexys Puentes MD [address] [place] [address] Chronic kidney disease, unspecified; Hyperlipidemia, unspecified; Hypothyroidism, [...] mmol/L LAB CHEMISTRY METHOD 01/28/2025 11:56 AM [facility] Potassium 4.0 3.5 - 5.5 mmol/L LAB CHEMISTRY METHOD 01/28/2025 11:56 AM [facility] Chloride 101 96 - 110 mmol/L LAB CHEMISTRY METHOD 01/28/2025 11:56 AM [facility] CO2 27 21 - 32 mmol/L LAB CHEMISTRY METHOD 01/28/2025 11:56 AM [facility] Anion Gap 7 3 - 11 LAB CHEMISTRY METHOD 01/28/2025 11:56 AM [facility] Glucose 87 70 - 100 mg/dL LAB CHEMISTRY METHOD 01/28/2025 11:56 AM [facility] BUN 44(H) 5 - 25 mg/dL LAB CHEMISTRY METHOD 01/28/2025 11:56 AM [facility] Creatinine 1.39(H) 0.70 - 1.30 mg/dL LAB CHEMISTRY METHOD 01/28/2025 11:56 AM [facility] eGFR 56(L) >=60 mL/min/1. 73m2 LAB CHEMISTRY METHOD 01/28/2025 11:56 AM [facility] Comment:Calculation based on the Chronic Kidney Disease Epidemiology Collaboration (CKD-EPI) equation refit without adjustment for race. BUN/Creatinine Ratio 31.7 LAB CHEMISTRY METHOD 01/28/2025 11:56 AM [facility] Calcium 8.8 8.5 - 10.5 mg/dL LAB CHEMISTRY METHOD 01/28/2025 11:56 AM [facility] AST (SGOT) 39 10 - 42 unit/L LAB CHEMISTRY METHOD 01/28/2025 11:56 AM [facility] ALT (SGPT) 105(H) 10 - 60 unit/L LAB CHEMISTRY METHOD 01/28/2025 11:56 AM [facility] Alkaline Phosphatase 147(H) 42 - 121 unit/L LAB CHEMISTRY METHOD 01/28/2025 11:[address] [facility] Total Protein 5.5(L) 6.0 - 8.0 g/dL LAB CHEMISTRY METHOD 01/28/2025 11:56 AM [facility] Albumin 2.6(L) 3.2 - 5.0 g/dL LAB CHEMISTRY METHOD 01/28/2025 11:56 AM [facility] Total Bilirubin 0.9 0.0 - 1.4 mg/dL LAB CHEMISTRY METHOD 01/28/2025 11:[address] [facility] Blood Venous blood specimen / Unknown Venipuncture / Unknown 01/28/2025 8:36 AM EDT 01/28/2025 10:43 AM EDT Alexys Puentes MD LAB BLOOD ORDERABLES Final Result [facility] [address] [place] [address], * (ABNORMAL) Complete blood count (01/28/2025 8:36 AM EDT) WBC 5.1 4.8 - 10.8 K/[facility] LAB HEMETOLOGY METHOD 01/28/2025 12:04 PM [facility] RBC 3.50(L) 4.50 - 5.50 M/[facility] LAB HEMETOLOGY METHOD 01/28/2025 12:04 PM [facility] Hemoglobin 11.6(L) 13.5 - 17.5 g/dL LAB HEMETOLOGY METHOD 01/28/2025 12:04 PM [facility] Hematocrit 34.2(L) 42.0 - 54.0 % LAB HEMETOLOGY METHOD 01/28/2025 12:04 PM [facility] MCV 96.6 79.0 - 98.0 FL LAB HEMETOLOGY METHOD 01/28/2025 12:[address] [facility] MCH 32.8(H) 27.0 - 32.0 pcg LAB HEMETOLOGY METHOD 01/28/2025 12:[address] [facility] MCHC 33.9 32.0 - 37.0 g/dL LAB HEMETOLOGY METHOD 01/28/2025 12:[address] [facility] RDW 18.3(H) 11.0 - 15.0 % LAB HEMETOLOGY METHOD 01/28/2025 12:[address] [facility] Platelets 92(L) 130 - 400 K/mcL LAB HEMETOLOGY METHOD 01/28/2025 12:[address] [facility] Comment:reviewed by slide MPV 10.4 7.0 - 11.0 FL LAB HEMETOLOGY METHOD 01/28/2025 12:[address] [facility] NRBC 0.4 <1.0 % LAB HEMETOLOGY METHOD 01/28/2025 12:[address] [facility] NRBC Absolute 0.02 <0.10 K/mcL LAB HEMETOLOGY METHOD 01/28/2025 12:[address] [facility] Blood Venous blood specimen / Unknown Venipuncture / Unknown 01/28/2025 8:36 AM EDT 01/28/2025 10:43 AM EDT us Alexys Puentes MD LAB BLOOD ORDERABLES Final Result [facility] [address] [place] [address], documented in this encounter Visit Diagnoses Diagnosis Chronic kidney disease, unspecified Hyperlipidemia, unspecified Hypothyroidism, unspecified documented in this encounter Care Teams Press Tender Long Goods Relationship Specialty Start Date End Date Morris Rizzo MD [address] [place] [address] PCP - General Internal Medicine 05/27/22 documented as of this encounter
--- OUTSIDE RECORDS SUMMARY | 2025-07-11 06:11 | XMS_ITS | Encounter Summary ---
Author Organization [facility] Address [address] [place] [address] Care Team Providers Care Business Services Analyst Name Role Phone Morris Rizzo MD Primary Care Provider Encounter Details Date Type Department Care Team (Late st Contact Info) Description 02/10/2025 Lab Requisition [facility] - Main Lab [address] [facility] [place] [address] Alexys Puentes MD [address] [place] [address] Chronic kidney disease, unspecified; Hyperlipidemia, unspecified; Thyrotoxicosis, [...] free t3 (02/11/2025 7:58 AM EDT) Pathologist [facility] TSH 2.86 0.40 - 4.00 mcIU/mL LAB CHEMISTRY METHOD 02/11/2025 1:02 PM EDT [facility] Blood Venous blood specimen / Unknown Venipuncture / Unknown 02/11/2025 7:58 AM EDT 02/11/2025 9:08 AM EDT Alexys Puentes MD LAB BLOOD ORDERABLES Final Result [facility] [address] [place] [address], * (ABNORMAL) Basic metabolic panel (02/11/2025 7:58 AM EDT) [facility] [address] Sodium 143 133 - 145 mmol/L LAB CHEMISTRY METHOD 02/11/2025 11:11 AM [facility] Potassium 4.4 3.5 - 5.5 mmol/L LAB CHEMISTRY METHOD 02/11/2025 11:11 AM [facility] Chloride 109 96 - 110 mmol/L LAB CHEMISTRY METHOD 02/11/2025 11:11 AM [facility] CO2 27 21 - 32 mmol/L LAB CHEMISTRY METHOD 02/11/2025 11:11 AM [facility] Anion Gap 7 3 - 11 LAB CHEMISTRY METHOD 02/11/2025 11:11 AM [facility] Glucose 89 70 - 100 mg/dL LAB CHEMISTRY METHOD 02/11/2025 11:11 AM [facility] BUN 31(H) 5 - 25 mg/dL LAB CHEMISTRY METHOD 02/11/2025 11:11 AM EDT [facility] Creatinine 1.67(H) 0.70 - 1.30 mg/dL LAB CHEMISTRY METHOD 02/11/2025 11:11 AM EDT [facility] eGFR 45(L) >=60 mL/min/1. 73m2 LAB CHEMISTRY METHOD 02/11/2025 11:11 AM EDT [facility] Comment:Calculation based on the Chronic Kidney Disease Epidemiology Collaboration (CKD-EPI) equation refit without adjustment for race. BUN/Creatinine Ratio 18.6 LAB CHEMISTRY METHOD 02/11/2025 11:11 AM EDT [facility] Calcium 8.7 8.5 - 10.5 mg/dL LAB CHEMISTRY METHOD 02/11/2025 11:11 AM [facility] Blood Venous blood specimen / Unknown Venipuncture / Unknown 02/11/2025 7:58 AM EDT 02/11/2025 9:08 AM EDT us Alexys Puentes MD LAB BLOOD ORDERABLES Final Result [facility] [address] [place] [address], * (ABNORMAL) Complete blood count (02/11/2025 7:58 AM EDT) WBC 5.0 4.8 - 10.8 K/mcL LAB HEMETOLOGY METHOD 02/11/2025 10:45 AM EDT [facility] RBC 2.90(L) 4.50 - 5.50 M/mcL LAB HEMETOLOGY METHOD 02/11/2025 10:45 AM EDT [facility] Hemoglobin 9.4(L) 13.5 - 17.5 g/dL LAB HEMETOLOGY METHOD 02/11/2025 10:45 AM EDT [facility] Hematocrit 29.0(L) 42.0 - 54.0 % LAB HEMETOLOGY METHOD 02/11/2025 10:45 AM EDT [facility] MCV 101.4(H) 79.0 - 98.0 FL LAB HEMETOLOGY METHOD 02/11/2025 10:45 AM EDT [facility] MCH 32.9(H) 27.0 - 32.0 pcg LAB HEMETOLOGY METHOD 02/11/2025 10:45 AM EDT [facility] MCHC 32.4 32.0 - 37.0 g/dL LAB HEMETOLOGY METHOD 02/11/2025 10:45 AM EDT [facility] RDW 20.2(H) 11.0 - 15.0 % LAB HEMETOLOGY METHOD 02/11/2025 10:45 AM T [facility] Platelets 203 130 - 400 K/mcL LAB HEMETOLOGY METHOD 02/11/2025 10:45 AM EDT [facility] MPV 9.8 7.0 - 11.0 FL LAB HEMETOLOGY METHOD 02/11/2025 10:45 AM EDT [facility] NRBC 1.0(H) <1.0 % LAB HEMETOLOGY METHOD 02/11/2025 10:45 AM T [facility] NRBC Absolute 0.05 <0.10 K/mcL LAB HEMETOLOGY METHOD 02/11/2025 10:45 AM EDT [facility] Blood Venous blood specimen / Unknown Venipuncture / Unknown 02/11/2025 7:58 AM EDT 02/11/2025 9:08 AM EDT us Alexys Puentes MD LAB BLOOD ORDERABLES Final Result [facility] [address] [place] [address], documented in this encounter Visit Diagnoses Diagnosis Chronic kidney disease, unspecified Hyperlipidemia, unspecified Thyrotoxicosis, unspecified without thyrotoxic crisis or storm Disorder of thyroid, unspecified documented in this encounter Care Teams Business Services Analyst Relationship Specialty Start Date End Date Morris Rizzo MD [address] [place] [address] Drive [address] [place] [address] PCP - General Internal Medicine 05/27/22 documented as of this encounter
--- OUTSIDE RECORDS SUMMARY | 2025-07-11 06:11 | XMS_ITS | Encounter Summary ---
Author Organization [facility] Address [address] [place] [address] Care Team Providers Care Campground Attendant Name Role Phone Morris Rizzo Primary Care Provider Encounter Details Date Type Department Care Team (Late st Contact Info) Description 04/15/2024 Orders Only [facility] [place] [address] [facility], 5th [place] [address] Shola Arroyo MD [address] [place] [address] Social History Tobacco Use Types Packs/Day Years [...] on filedocumented in this encounter Care Teams Campground Attendant Relationship Specialty Start Date End Date Morris Rizzo [address] [place] [address] [place] [address] PCP - General Internal Medicine 01/09/24 documented as of this encounter
[2025-07-11 06:18] LABS: MANUAL DIFF FLAG NO
[2025-07-11 07:51] LABS: Hematocrit 30.0 % (42.0-52.0); Hemoglobin 9.9 g/dl (14.0-18.0); Imm Gran Abs Auto 0.04 X10*3/uL (0.00-0.03); Imm Gran Pct Auto 1.2 % (0.0-0.4); Lymphocytes Absolute Auto 1.5 X10*3/uL (1.2-4.9); Mean Corpuscular HGB Conc 33.0 g/dl (31.0-36.0); Mean Corpuscular Hemoglobin 31.4 pg (27.0-33.0); Mean Corpuscular Volume 95.2 fL (80.0-98.0); NRBC Abs Auto 0.000 X10*3/uL (0.0-0.012); NRBC Pct Auto 0.0 /100WBC (0.0-0.2); Platelet Count 236 X10*3/uL (160-400); Red Blood Count 3.15 X10*6/uL (4.60-5.80); White Blood Count 3.4 X10*3/uL (4.8-10.8)
[2025-07-11 08:18] LABS: Alanine Aminotransferase 13 U/L (0-40); Albumin Level 3.7 g/dL (3.5-5.0); Alkaline Phosphatase 91 U/L (39-117); Anion Gap 12 (12-20); Aspartate Amino Transferase 36 U/L (5-37); Blood Urea Nitrogen 17 mg/dL (9-16); Calcium 9.3 mg/dL (8.4-10.2); Carbon Dioxide 25 mmol/L (22-29); Chloride 106 mmol/L (96-108); Estimated Glomerular Filt Rate 36; Magnesium 1.6 mg/dL (1.6-2.6); Potassium 4.0 mmol/L (3.3-5.1); Sodium 139 mmol/L (135-145); Total Protein 6.8 g/dL (6.5-8.0)
== END 2025-07-11 06:09 | disposition home or self-care (01) ==
LOC: HO.LAB 06:08
PROVIDERS: Visit Provider Internal Medicine
DX: C67.9 Malignant neoplasm of bladder, unspecified (principal)
CPT/HCPCS: 36415; 80053; 83735; 85025

== ENCOUNTER 2025-07-18 06:07 | Outpatient (REF) | payer MEDICARE, OTHER, SELFPAY ==
--- OUTSIDE RECORDS SUMMARY | 2024-06-03 10:50 | XMS_ITS ---
Author Organization [facility] Address [address] [place] [address] Care Team Providers Care Field Checker Name Role Phone So MCALLISTER, Primary Care Provider Unavaila Jose Doty Unavailable [phone] Eamon MCALLISTER, Zamzam Lindsay Unavailable REASON FOR VISIT colon screening Encounters Encounter Location Date Provider Diagnosis [facility] [place] [facility] [address] [facility] [id number] 06/03/2024 Jose Arevalo Plan Of Treatment No Information Progress Notes * JOSE CUBADOB:1960 (64 yo M)Acc No.[id number]:06/03/2024 COLON WITH MAC Patient: JOSE LOPEZ Provider: Disha Arevalo MD :1960 A ge:63 Y S ex:Male Date:06/03/2024 Address:[address] [place] [address] [id number] Pcp:Morris Rizzo MD Subjective: * Chief Complaints: * 1 . Colon screening. * Medical History: Objective: * Vitals: Assessment: Plan: * Treatment: * * The named appointment provid er may or may not be the originator of this progress note, and it is not deemed complete until electronically signed by the appointment provider. Sign off status: Pending * Provider: Disha Arevalo MD Date: 06/03/2024 Generated for Sade cerda/Todd/eThaileesmitting on: 07/18/2025 06:09 AM EDT
--- OUTSIDE RECORDS SUMMARY | 2025-07-18 06:09 | XMS_ITS | Clinical Summary ---
Author Organization [facility] Address [address] [place] [address] Care Team Providers Care Necktie Maker Name Role Phone Morris Rizzo Primary Care Provider [phone] Allergies No known active allergies Medications atorvastatin [...] Cessation:Counseling Given: Not Answered Comments:On and off [phone] smoking, at most 1 PPD Alcohol Use [...] 08/03/2023 Procedures * Due to [place] [employer] law, this organization might not be sharing negative HIV tests. Procedure Name Priority Date/Time Associated Diagnosis Comments AMB EXTERNAL CT CHEST, OUTSI DE RESULT 01/23/2024 from Last 3 Months or Most Recently Relevant to Health Maintenance Results * Due to [place] [employer] law, this organization might not be sharing negative HIV tests. * AMB EXTERNAL CT CHEST, OUTSIDE RESULT (01/23/2024) Anatomical Region Laterality Modality Other [facility]20[facility] EXTERNAL RESULT PROCEDURE S Final Result from Last 3 Months or Most Recently Relevant to Health Maintenance Insurance MEDICARE [facility] Advance Directives Documents on File Type Date Recorded Patient Retail Advertising Executive Expl anation Health Care Proxy 05/27/2024 7:26 AM Care Teams Necktie Maker Relationship Specialty Start Date End Date Morris Rizzo [address] [place] [address] [place] [address] PCP - General Internal Medicine 01/09/24
--- OUTSIDE RECORDS SUMMARY | 2025-07-18 06:09 | XMS_ITS | Encounter Summary ---
Author Organization [facility] Address [address] [place] [address] Care Team Providers Care Internal Combustion Engine Subassembler Name Role Phone Morris Rizzo MD Primary Care Provider [phone] Encounter Details Date Type Department Care Team (Late st Contact Info) Description 02/17/2025 Lab Requisition [facility] - Main Lab [address] [facility] [place] [address] Alexys Puentes MD [address] [place] [address] Chronic kidney disease, unspecified; Hyperlipidemia, unspecified; Thyrotoxicosis, [...] mmol/L LAB CHEMISTRY METHOD 02/18/2025 11:25 AM [facility] Potassium 3.7 3.5 - 5.5 mmol/L LAB CHEMISTRY METHOD 02/18/2025 11:25 AM [facility] Chloride 107 96 - 110 mmol/L LAB CHEMISTRY METHOD 02/18/2025 11:25 AM [facility] CO2 26 21 - 32 mmol/L LAB CHEMISTRY METHOD 02/18/2025 11:25 AM [facility] Anion Gap 5 3 - 11 LAB CHEMISTRY METHOD 02/18/2025 11:25 AM [facility] Glucose 85 70 - 100 mg/dL LAB CHEMISTRY METHOD 02/18/2025 11:25 AM [facility] BUN 29(H) 5 - 25 mg/dL LAB CHEMISTRY METHOD 02/18/2025 11:25 AM [facility] Creatinine 1.67(H) 0.70 - 1.30 mg/dL LAB CHEMISTRY METHOD 02/18/2025 11:25 AM [facility] eGFR 45(L) >=60 mL/min/1. 73m2 LAB CHEMISTRY METHOD 02/18/2025 11:25 AM [facility] Comment:Calculation based on the Chronic Kidney Disease Epidemiology Collaboration (CKD-EPI) equation refit without adjustment for race. BUN/Creatinine Ratio 17.4 LAB CHEMISTRY METHOD 02/18/2025 11:25 AM [facility] Calcium 8.7 8.5 - 10.5 mg/dL LAB CHEMISTRY METHOD 02/18/2025 11:25 AM [facility] Blood Venous blood specimen / Unknown Venipuncture / Unknown 02/18/2025 6:52 AM EDT 02/18/2025 10:38 AM EDT Alexys Puentes MD LAB BLOOD ORDERABLES Final Result [facility] [address] [place] [address], * (ABNORMAL) Complete blood count (02/18/2025 6:52 AM EDT) WBC 4.2(L) 4.8 - 10.8 K/mcL LAB HEMETOLOGY METHOD 02/18/2025 10:[address] [facility] RBC 2.80(L) 4.50 - 5.50 M/mcL LAB HEMETOLOGY METHOD 02/18/2025 10:[address] [facility] Hemoglobin 9.4(L) 13.5 - 17.5 g/dL LAB HEMETOLOGY METHOD 02/18/2025 10:[address] [facility] Hematocrit 29.1(L) 42.0 - 54.0 % LAB HEMETOLOGY METHOD 02/18/2025 10:[address] [facility] MCV 103.9(H) 79.0 - 98.0 FL LAB HEMETOLOGY METHOD 02/18/2025 10:[address] [facility] MCH 33.6(H) 27.0 - 32.0 pcg LAB HEMETOLOGY METHOD 02/18/2025 10:[address] [facility] MCHC 32.3 32.0 - 37.0 g/dL LAB HEMETOLOGY METHOD 02/18/2025 10:[address] [facility] RDW 20.8(H) 11.0 - 15.0 % LAB HEMETOLOGY METHOD 02/18/2025 10:[address] [facility] Platelets 206 130 - 400 K/mcL LAB HEMETOLOGY METHOD 02/18/2025 10:[address] [facility] MPV 9.7 7.0 - 11.0 FL LAB HEMETOLOGY METHOD 02/18/2025 10:[address] [facility] NRBC 1.0(H) <1.0 % LAB HEMETOLOGY METHOD 02/18/2025 10:[address] [facility] NRBC Absolute 0.04 <0.10 K/mcL [facility] METHOD 02/18/2025 10:[address] [facility] Blood Venous blood specimen / Unknown Venipuncture / Unknown 02/18/2025 6:52 AM EDT 02/18/2025 10:37 AM EDT us Alexys Puentes MD LAB BLOOD ORDERABLES Final Result [facility] [address] [place] [address], documented in this encounter Visit Diagnoses Diagnosis Chronic kidney disease, unspecified Hyperlipidemia, unspecified Thyrotoxicosis, unspecified without thyrotoxic crisis or storm documented in this encounter Care Teams Internal Combustion Engine Subassembler Relationship Specialty Start Date End Date Morris Rizzo MD [address] [place] [address] PCP - General Internal Medicine 05/27/22 documented as of this encounter
--- OUTSIDE RECORDS SUMMARY | 2025-07-18 06:09 | XMS_ITS | Encounter Summary ---
Author Organization [facility] Address [address] [place] [address] Care Team Providers Care Learn To Swim Instructor Name Role Phone Morris Rizzo MD Primary Care Provider Encounter Details Date Type Department Care Team (Late st Contact Info) Description 02/10/2025 Lab Requisition [facility] - Main Lab [address] [facility] [place] [address] Alexys Puentes MD [address] [place] [address] Chronic kidney disease, unspecified; Hyperlipidemia, unspecified; Thyrotoxicosis, [...] free t3 (02/11/2025 7:58 AM EDT) Pathologist [facility] TSH 2.86 0.40 - 4.00 mcIU/mL LAB CHEMISTRY METHOD 02/11/2025 1:02 PM EDT [facility] Blood Venous blood specimen / Unknown Venipuncture / Unknown 02/11/2025 7:58 AM EDT 02/11/2025 9:08 AM EDT Alexys Puentes MD LAB BLOOD ORDERABLES Final Result [facility] [address] [place] [address], * (ABNORMAL) Basic metabolic panel (02/11/2025 7:58 AM EDT) [facility] Sodium 143 133 - 145 mmol/L LAB CHEMISTRY METHOD 02/11/2025 11:11 AM [facility] Potassium 4.4 3.5 - 5.5 mmol/L LAB CHEMISTRY METHOD 02/11/2025 11:11 AM [facility] Chloride 109 96 - 110 mmol/L LAB CHEMISTRY METHOD 02/11/2025 11:11 AM [facility] CO2 27 21 - 32 mmol/L LAB CHEMISTRY METHOD 02/11/2025 11:11 AM [facility] Anion Gap 7 3 - 11 LAB CHEMISTRY METHOD 02/11/2025 11:11 AM [facility] Glucose 89 70 - 100 mg/dL LAB CHEMISTRY METHOD 02/11/2025 11:11 AM [facility] BUN 31(H) 5 - 25 mg/dL LAB CHEMISTRY METHOD 02/11/2025 11:11 AM EDT [facility] Creatinine 1.67(H) 0.70 - 1.30 mg/dL LAB CHEMISTRY METHOD 02/11/2025 11:11 AM EDT [facility] eGFR 45(L) >=60 mL/min/1. 73m2 LAB CHEMISTRY METHOD 02/11/2025 11:11 AM EDT [facility] Comment:Calculation based on the Chronic Kidney Disease Epidemiology Collaboration (CKD-EPI) equation refit without adjustment for race. BUN/Creatinine Ratio 18.6 LAB CHEMISTRY METHOD 02/11/2025 11:11 AM EDT [facility] Calcium 8.7 8.5 - 10.5 mg/dL LAB CHEMISTRY METHOD 02/11/2025 11:11 AM [facility] Blood Venous blood specimen / Unknown Venipuncture / Unknown 02/11/2025 7:58 AM EDT 02/11/2025 9:08 AM EDT us Alexys Puentes MD LAB BLOOD ORDERABLES Final Result [facility] [address] [place] [address], * (ABNORMAL) Complete blood count (02/11/2025 7:58 AM EDT) WBC 5.0 4.8 - 10.8 K/mcL LAB HEMETOLOGY METHOD 02/11/2025 10:45 AM EDT [facility] RBC 2.90(L) 4.50 - 5.50 M/mcL LAB HEMETOLOGY METHOD 02/11/2025 10:45 AM EDT [facility] Hemoglobin 9.4(L) 13.5 - 17.5 g/dL LAB HEMETOLOGY METHOD 02/11/2025 10:45 AM EDT [facility] Hematocrit 29.0(L) 42.0 - 54.0 % LAB HEMETOLOGY METHOD 02/11/2025 10:45 AM EDT [facility] MCV 101.4(H) 79.0 - 98.0 FL LAB HEMETOLOGY METHOD 02/11/2025 10:45 AM EDT [facility] MCH 32.9(H) 27.0 - 32.0 pcg LAB HEMETOLOGY METHOD 02/11/2025 10:45 AM EDT [facility] MCHC 32.4 32.0 - 37.0 g/dL LAB HEMETOLOGY METHOD 02/11/2025 10:45 AM EDT [facility] RDW 20.2(H) 11.0 - 15.0 % LAB HEMETOLOGY METHOD 02/11/2025 10:45 AM T [facility] Platelets 203 130 - 400 K/mcL LAB HEMETOLOGY METHOD 02/11/2025 10:45 AM EDT [facility] MPV 9.8 7.0 - 11.0 FL LAB HEMETOLOGY METHOD 02/11/2025 10:45 AM EDT [facility] NRBC 1.0(H) <1.0 % LAB HEMETOLOGY METHOD 02/11/2025 10:45 AM T [facility] NRBC Absolute 0.05 <0.10 K/mcL LAB HEMETOLOGY METHOD 02/11/2025 10:45 AM EDT [facility] Blood Venous blood specimen / Unknown Venipuncture / Unknown 02/11/2025 7:58 AM EDT 02/11/2025 9:08 AM EDT us Alexys Puentes MD LAB BLOOD ORDERABLES Final Result [facility] [address] [place] [address], documented in this encounter Visit Diagnoses Diagnosis Chronic kidney disease, unspecified Hyperlipidemia, unspecified Thyrotoxicosis, unspecified without thyrotoxic crisis or storm Disorder of thyroid, unspecified documented in this encounter Care Teams Learn To Swim Instructor Relationship Specialty Start Date End Date Morris Rizzo MD [address] [place] [address] Drive [address] [place] [address] PCP - General Internal Medicine 05/27/22 documented as of this encounter
--- OUTSIDE RECORDS SUMMARY | 2025-07-18 06:09 | XMS_ITS ---
Author Organization [facility] Address [address] [place] [address] Care Team Providers Care Pinion Polisher Name Role Phone Morris Rizzo Primary Care Provider [phone] Active Problems Problem Noted Date Diagnosed Date Hyperkalemia 05/30/2024 Malignant neoplasm of overlapping sites of bladd er 03/04/2024 Other hydronephrosis 03/04/2024 Current Treatment and Therapy Plans No current plan information found. Past Treatment and Therapy Plans No past plan information found. Lifetime Dose Tracking * Chemical Lifetime Dose Automatic Entry Manual Entr y TotalDLP 1,042 mGy 1,042 mGy 0 mGy [id number] 13.5 mSv 13.5 mSv 0 mSv CTDIvol Max 11.8 mGy 11.8 mGy 0 mGy CTDIvol Min 7.3 mGy 7.3 mGy 0 mGy
--- OUTSIDE RECORDS SUMMARY | 2025-07-18 06:09 | XMS_ITS | Patient Health Record ---
Author Organization [facility] Address [address] [place] [address] Care Team Providers Care Parole Officer Name Role Phone So MCALLISTER, Primary Care Provider Unavaila yaquelin Arevalo Jose Unavailable [phone] Eamon MCALLISTER, Zamzam Unavailable Unavailable Reason For [...] Status Risk Notes Problem Colon cancer screening (324234244) Colon cancer screening (Z12.11) Active confirmed Problem 95948000 Epigastric abdominal pain (R10.13) Active confirmed Problem [id number] Encounter for screening for malignant neoplasm of colon (Z12.11) Active confirmed Problem [id number] Preprocedural examination (Z01.818) Active confirmed Plan Of Treatment Future Test Test Name Order Date UPPER GI ENDOSCOPY 08/23/2017 COLONOSCOPY 04/10/2019 COLONOSCOPY 04/26/2024 Insurance Providers Payer Name Payer Address Payer Phone Subscriber Number Group Number Insured Name Patient Relationship to Insured Coverage Start Date Coverage End Date MEDICARE OF [place] [address] [place] [id number] [phone] [id number] JOSE CUBA Self - patient is the insured [employer] [address] [place] [address] [id number] JOSE CUBA Self - patient is the insured Medical (General) History Medical History History ICD Code Denies CO,DM,CVA,Lung disease,renal dise ase Hyperlipidemia Screening colonoscopy in Mar with Dr. Johansen revealed only hyperplastic polyps. EGD in 08/2017-small HH, normal duodenal and gastric biopsies Surgical History Surgery Date(Month/Year) Lap cholecystectomy--acalculous cholecys titis-Dr. Knutson 05/2017 Finger- infection drained 1969
--- OUTSIDE RECORDS SUMMARY | 2025-07-18 06:09 | XMS_ITS | Encounter Summary ---
Author Organization [facility] Address [address] [place] [address] Care Team Providers Care It Systems Engineer Name Role Phone Morris Rizzo MD Primary Care Provider [phone] Encounter Details Date Type Department Care Team (Late st Contact Info) Description 01/28/2025 Lab Requisition [facility] - Main Lab [address] [facility] [place] [address] Alexys Puentes MD [address] [place] [address] Chronic kidney disease, unspecified; Hyperlipidemia, unspecified; Hypothyroidism, [...] mmol/L LAB CHEMISTRY METHOD 01/28/2025 11:56 AM [facility] Potassium 4.0 3.5 - 5.5 mmol/L LAB CHEMISTRY METHOD 01/28/2025 11:56 AM [facility] Chloride 101 96 - 110 mmol/L LAB CHEMISTRY METHOD 01/28/2025 11:56 AM [facility] CO2 27 21 - 32 mmol/L LAB CHEMISTRY METHOD 01/28/2025 11:56 AM [facility] Anion Gap 7 3 - 11 LAB CHEMISTRY METHOD 01/28/2025 11:56 AM [facility] Glucose 87 70 - 100 mg/dL LAB CHEMISTRY METHOD 01/28/2025 11:56 AM [facility] BUN 44(H) 5 - 25 mg/dL LAB CHEMISTRY METHOD 01/28/2025 11:56 AM [facility] Creatinine 1.39(H) 0.70 - 1.30 mg/dL LAB CHEMISTRY METHOD 01/28/2025 11:56 AM [facility] eGFR 56(L) >=60 mL/min/1. 73m2 LAB CHEMISTRY METHOD 01/28/2025 11:56 AM [facility] Comment:Calculation based on the Chronic Kidney Disease Epidemiology Collaboration (CKD-EPI) equation refit without adjustment for race. BUN/Creatinine Ratio 31.7 LAB CHEMISTRY METHOD 01/28/2025 11:56 AM [facility] Calcium 8.8 8.5 - 10.5 mg/dL LAB CHEMISTRY METHOD 01/28/2025 11:56 AM [facility] AST (SGOT) 39 10 - 42 unit/L LAB CHEMISTRY METHOD 01/28/2025 11:56 AM [facility] ALT (SGPT) 105(H) 10 - 60 unit/L LAB CHEMISTRY METHOD 01/28/2025 11:56 AM [facility] Alkaline Phosphatase 147(H) 42 - 121 unit/L LAB CHEMISTRY METHOD 01/28/2025 11:56 AM EDT [facility] Total Protein 5.5(L) 6.0 - 8.0 g/dL LAB CHEMISTRY METHOD 01/28/2025 11:56 AM [facility] Albumin 2.6(L) 3.2 - 5.0 g/dL LAB CHEMISTRY METHOD 01/28/2025 11:56 AM [facility] Total Bilirubin 0.9 0.0 - 1.4 mg/dL LAB CHEMISTRY METHOD 01/28/2025 11:56 AM T [facility] Blood Venous blood specimen / Unknown Venipuncture / Unknown 01/28/2025 8:36 AM EDT 01/28/2025 10:43 AM EDT Alexys Puentes MD LAB BLOOD ORDERABLES Final Result [facility] [address] [place] [address], * (ABNORMAL) Complete blood count (01/28/2025 8:36 AM EDT) WBC 5.1 4.8 - 10.8 K/[facility] LAB HEMETOLOGY METHOD 01/28/2025 12:04 PM [facility] RBC 3.50(L) 4.50 - 5.50 M/[facility] LAB HEMETOLOGY METHOD 01/28/2025 12:04 PM [facility] Hemoglobin 11.6(L) 13.5 - 17.5 g/dL LAB HEMETOLOGY METHOD 01/28/2025 12:04 PM [facility] Hematocrit 34.2(L) 42.0 - 54.0 % LAB HEMETOLOGY METHOD 01/28/2025 12:04 PM [facility] MCV 96.6 79.0 - 98.0 FL LAB HEMETOLOGY METHOD 01/28/2025 12:04 PM EDT [facility] MCH 32.8(H) 27.0 - 32.0 pcg LAB HEMETOLOGY METHOD 01/28/2025 12:04 PM EDT [facility] MCHC 33.9 32.0 - 37.0 g/dL LAB HEMETOLOGY METHOD 01/28/2025 12:04 PM EDT [facility] RDW 18.3(H) 11.0 - 15.0 % LAB HEMETOLOGY METHOD 01/28/2025 12:04 PM EDT [facility] Platelets 92(L) 130 - 400 K/mcL LAB HEMETOLOGY METHOD 01/28/2025 12:04 PM EDT [facility] Comment:reviewed by slide MPV 10.4 7.0 - 11.0 FL LAB HEMETOLOGY METHOD 01/28/2025 12:04 PM EDT [facility] NRBC 0.4 <1.0 % LAB HEMETOLOGY METHOD 01/28/2025 12:04 PM EDT [facility] NRBC Absolute 0.02 <0.10 K/mcL LAB HEMETOLOGY METHOD 01/28/2025 12:04 PM EDT [facility] Blood Venous blood specimen / Unknown Venipuncture / Unknown 01/28/2025 8:36 AM EDT 01/28/2025 10:43 AM EDT us Alexys Puentes MD LAB BLOOD ORDERABLES Final Result [facility] [address] [place] [address], documented in this encounter Visit Diagnoses Diagnosis Chronic kidney disease, unspecified Hyperlipidemia, unspecified Hypothyroidism, unspecified documented in this encounter Care Teams It Systems Engineer Relationship Specialty Start Date End Date Morris Rizzo MD [address] [place] [address] PCP - General Internal Medicine 05/27/22 documented as of this encounter
--- OUTSIDE RECORDS SUMMARY | 2025-07-18 06:09 | XMS_ITS | Clinical Summary ---
Author Organization [facility] Address [address] [place] [address] Phone Care Team Providers Care Bioinformatics Computer Scientist Name Role Phone Morris Rizzo MD Primary Care Provider [phone] Encounters Date Type Department Care Team Description 06/19/2025 Telephone Lung Screening Program - [place] [address] [facility] [address] [place] [address] Edelmira Morales [place] 05/07/2025 7:11 AM EDT - 05/07/2025 11:59 PM EDT Hospital Encounter [facility] PET Scan [address] [place] [id number] Malignant neoplasm of bladder, unspecified (CMS/HCC V24, [...] Signed Date: 05/08/2025 11:29 ET Workstation ID: [id number] Transcribed By: Self Edit Transcribed Date: 05/08/2025 [...] Signed Date: 05/08/2025 11:29 ET Workstation ID: [id number] Transcribed By: Self Edit Transcribed Date: 05/08/2025 11:19 ET Antonia Moon MD IMG NM PROCEDURES Final Result * CT LUNG SCREENING LOW DOSE (08/19/2024 6:31 AM EDT) Anatomical Region Laterality Modality Computed Tomogra phy 08/17/2024 7:23 AM EDT Narrative 08/19/2024 6:31 AM EDT [facility] Diagnostic Imaging Department [address] [place], [place] [id number] Patient: JOSE LAMBERT Chandler /Age/Sex: 1960 - 63 - M Unit#: [id number] Location/Status: [facility]/REG CLI Mnemonic/Ordering Site: [facility] Ordering Physician: SUYAPA WEST MD [...] Procedure Note Alpa Lorenzana MD - 08/24/2024 [facility] Diagnostic Imaging Department [address] [place] [address] Patient: JOSE LAMBERTO.B./Age/Sex: 1960 - 63 - M Unit#: [id number] Location/Status: [facility]/REG CLI Mnemonic/Ordering Site: [facility] Ordering Physician: SUYAPA WEST MD [...] Recently Relevant to Health Maintenance Insurance MEDICARE [facility] Care Teams Bioinformatics Computer Scientist Relationship Specialty Start Date End Date Morris Rizzo MD [address] [facility] [address] [place] [address] PCP - General Internal Medicine 05/27/22
--- OUTSIDE RECORDS SUMMARY | 2025-07-18 06:09 | XMS_ITS | Encounter Summary ---
Author Organization [facility] Address [address] [place] [address] Care Team Providers Care Process Design Engineer Name Role Phone Morris Rizzo Primary Care Provider [phone] Encounter Details Date Type Department Care Team (Late st Contact Info) Description 04/15/2024 Orders Only [facility] [address] [facility], 5th [place] [address] Shola Arroyo MD [address] [place] [address] Social History Tobacco Use Types Packs/Day Years [...] on filedocumented in this encounter Care Teams Process Design Engineer Relationship Specialty Start Date End Date Morris Rizzo [address] [place] [address] [place] [address] PCP - General Internal Medicine 01/09/24 documented as of this encounter
--- OUTSIDE RECORDS SUMMARY | 2025-07-18 06:09 | XMS_ITS | Encounter Summary ---
Author Organization [facility] Address [address] [place] [address] Care Team Providers Care Straight Truck Driver Name Role Phone Morris Rizzo MD Primary Care Provider [phone] Encounter Details Date Type Department Care Team (Late st Contact Info) Description 02/03/2025 Lab Requisition [facility] - Main Lab [address] [facility] [place] [address] Alexys Puentes MD [address] [place] [address] Chronic kidney disease, unspecified; Hyperlipidemia, unspecified; Thyrotoxicosis, [...] g/dL LAB [facility]STR[facility] Albumin 2.6(L) 3.2 - 5.0 g/dL LAB CHEMISTRY METHOD 02/04/2025 12:03 PM EDT [facility] Total Bilirubin 0.8 0.0 - 1.4 mg/dL LAB CHEMISTRY METHOD 02/04/2025 12:03 PM [facility] Bilirubin, Direct 0.2 0.0 - 0.3 mg/dL LAB CHEMISTRY METHOD 02/04/2025 12:03 PM [facility] Bilirubin, Indirect 0.6 0.0 - 1.1 mg/dL LAB CHEMISTRY METHOD 02/04/2025 12:03 PM [facility] ALT (SGPT) 52 10 - 60 unit/L LAB CHEMISTRY METHOD 02/04/2025 12:03 PM [facility] AST (SGOT) 27 10 - 42 unit/L LAB CHEMISTRY METHOD 02/04/2025 12:03 PM [facility] Alkaline Phosphatase 128(H) 42 - 121 unit/L LAB CHEMISTRY METHOD 02/04/2025 12:03 PM [facility] Blood Venous blood specimen / Unknown Venipuncture / Unknown 02/04/2025 8:05 AM EDT 02/04/2025 10:03 AM EDT us Alexys Puentes MD LAB BLOOD ORDERABLES Final Result [facility] [address] [place], [place] [address] [phone] * (ABNORMAL) Basic metabolic panel (02/04/2025 8:05 AM EDT) Sodium 138 133 - 145 mmol/L LAB CHEMISTRY METHOD 02/04/2025 12:03 PM [facility] Potassium 3.4(L) 3.5 - 5.5 mmol/L LAB CHEMISTRY METHOD 02/04/2025 12:03 PM [facility] Chloride 105 96 - 110 mmol/L LAB CHEMISTRY METHOD 02/04/2025 12:03 PM [facility] CO2 27 21 - 32 mmol/L LAB CHEMISTRY METHOD 02/04/2025 12:03 PM [facility] Anion Gap 6 3 - 11 LAB CHEMISTRY METHOD 02/04/2025 12:03 PM [facility] Glucose 75 70 - 100 mg/dL LAB CHEMISTRY METHOD 02/04/2025 12:03 PM [facility] BUN 34(H) 5 - 25 mg/dL LAB CHEMISTRY METHOD 02/04/2025 12:03 PM [facility] Creatinine 1.66(H) 0.70 - 1.30 mg/dL LAB CHEMISTRY METHOD 02/04/2025 12:03 PM [facility] eGFR 45(L) >=60 mL/min/1. 73m2 LAB CHEMISTRY METHOD 02/04/2025 12:03 PM [facility] Comment:Calculation based on the Chronic Kidney Disease Epidemiology Collaboration (CKD-EPI) equation refit without adjustment for race. BUN/Creatinine Ratio 20.5 LAB CHEMISTRY METHOD 02/04/2025 12:03 PM [facility] Calcium 8.9 8.5 - 10.5 mg/dL LAB CHEMISTRY METHOD 02/04/2025 12:03 PM [facility] Blood Venous blood specimen / Unknown Venipuncture / Unknown 02/04/2025 8:05 AM EDT 02/04/2025 10:03 AM EDT us Alexys Puentes MD LAB BLOOD ORDERABLES Final Result [facility] [address] [place] [address], [place] [phone] * (ABNORMAL) Complete blood count (02/04/2025 8:05 AM EDT) WBC 4.8 4.8 - 10.8 K/mcL LAB HEMETOLOGY METHOD 02/04/2025 11:16 AM EDT [facility] RBC 3.10(L) 4.50 - 5.50 M/mcL LAB HEMETOLOGY METHOD 02/04/2025 11:16 AM [facility] Hemoglobin 9.9(L) 13.5 - 17.5 g/dL LAB HEMETOLOGY METHOD 02/04/2025 11:16 AM [facility] Hematocrit 29.6(L) 42.0 - 54.0 % LAB HEMETOLOGY METHOD 02/04/2025 11:16 AM [facility] MCV 97.0 79.0 - 98.0 FL LAB HEMETOLOGY METHOD 02/04/2025 11:16 AM [facility] MCH 32.5(H) 27.0 - 32.0 pcg LAB HEMETOLOGY METHOD 02/04/2025 11:16 AM [facility] MCHC 33.4 32.0 - 37.0 g/dL LAB HEMETOLOGY METHOD 02/04/2025 11:16 AM [facility] RDW 19.0(H) 11.0 - 15.0 % LAB HEMETOLOGY METHOD 02/04/2025 11:16 AM [facility] Platelets 120(L) 130 - 400 K/mcL LAB HEMETOLOGY METHOD 02/04/2025 11:16 AM EDT [facility] MPV 10.3 7.0 - 11.0 FL LAB HEMETOLOGY METHOD 02/04/2025 11:16 AM EDT [facility] NRBC 0.6 <1.0 % LAB HEMETOLOG METHOD 02/04/2025 11:16 AM EDT [facility] NRBC Absolute 0.03 <0.10 K/mcL LAB HEMETOLOGY METHOD 02/04/2025 11:16 AM EDT [facility] Blood Venous blood specimen / Unknown Venipuncture / Unknown 02/04/2025 8:05 AM EDT 02/04/2025 10:03 AM EDT us Alexys Puentes MD LAB BLOOD ORDERABLES Final Result [facility] [address] [place] [address], documented in this encounter Visit Diagnoses Diagnosis Chronic kidney disease, unspecified Hyperlipidemia, unspecified Thyrotoxicosis, unspecified without thyrotoxic crisis or storm documented in this encounter Care Teams Straight Truck Driver Relationship Specialty Start Date End Date Morris Rizzo MD [address] [place] [address] PCP - General Internal Medicine 05/27/22 documented as of this encounter
--- OUTSIDE RECORDS SUMMARY | 2025-07-18 06:10 | XMS_ITS | Clinical Summary ---
Author Organization [facility] Address [address] [place], [place] [id number] Phone Care Team Providers Care Toe Lining Closer Name Role Phone Unavailable Primary Care Provider [...] Insurance [place] [id number] MEDICARE PART A & B MEDICARE PART A & B MEDICARE PART A & B MEDICARE PART A & B MEDICARE PART A & B Additional Source Comments The information contained in this document represents components of the legal health record. It is not the complete legal health record.[facility]
[2025-07-18 06:28] LABS: MANUAL DIFF FLAG NO
[2025-07-18 06:54] LABS: Hematocrit 30.2 % (42.0-52.0); Hemoglobin 10.1 g/dl (14.0-18.0); Imm Gran Abs Auto 0.03 X10*3/uL (0.00-0.03); Imm Gran Pct Auto 0.8 % (0.0-0.4); Lymphocytes Absolute Auto 1.9 X10*3/uL (1.2-4.9); Mean Corpuscular HGB Conc 33.4 g/dl (31.0-36.0); Mean Corpuscular Hemoglobin 31.4 pg (27.0-33.0); Mean Corpuscular Volume 93.8 fL (80.0-98.0); NRBC Abs Auto 0.000 X10*3/uL (0.0-0.012); NRBC Pct Auto 0.0 /100WBC (0.0-0.2); Platelet Count 204 X10*3/uL (160-400); Red Blood Count 3.22 X10*6/uL (4.60-5.80); White Blood Count 3.8 X10*3/uL (4.8-10.8)
[2025-07-18 06:56] LABS: Alanine Aminotransferase 10 U/L (0-40); Albumin Level 3.7 g/dL (3.5-5.0); Alkaline Phosphatase 85 U/L (39-117); Anion Gap 11 (12-20); Aspartate Amino Transferase 37 U/L (5-37); Blood Urea Nitrogen 27 mg/dL (9-16); Calcium 9.6 mg/dL (8.4-10.2); Carbon Dioxide 25 mmol/L (22-29); Chloride 108 mmol/L (96-108); Cholesterol 173 mg/dL (<200); Estimated Glomerular Filt Rate 38; HDL Cholesterol 31 mg/dL (>40); Magnesium 1.7 mg/dL (1.6-2.6); Potassium 4.1 mmol/L (3.3-5.1); Sodium 140 mmol/L (135-145); Total Protein 6.8 g/dL (6.5-8.0); Triglycerides 177 mg/dL (<150)
== END 2025-07-18 06:08 | disposition home or self-care (01) ==
LOC: HO.LAB 06:07
PROVIDERS: Visit Provider Internal Medicine
DX: C67.9 Malignant neoplasm of bladder, unspecified (principal); E78.00 Pure hypercholesterolemia, unspecified
CPT/HCPCS: 36415; 80053; 80061; 83735; 85025

== ENCOUNTER 2025-07-30 08:30 | Outpatient (REF) | payer MEDICARE, OTHER, SELFPAY ==
--- NOTE | 2025-07-30 08:59 | PFT_ITS ---
Flows: FEV1: 110 % of predicted at 4.14 L FVC: 104 % of predicted at 5.22 L FEV1/FVC: 79 % Bronchodilator response: Present in small to medium airways only Volumes: Total lung capacity: 108 % of predicted at 8.83 L Residual volume: 130 % of predicted at 3.61 L Slow vital capacity: 96 % of predicted at 5.22 L Expiratory reserve volume: 80 % of predicted at 1.22 L Diffusion capacity: Moderately decreased Impression: No obstructive or restrictive ventilatory defect. Bronchodilator response is present in small to medium airways only. Increased residual volume suggests air trapping. Decreased diffusion capacity suggests emphysema. MTDD
[2025-07-30 09:36] VITALS: PULSE 108; O2SAT 100
== END 2025-07-30 08:31 | disposition home or self-care (01) ==
LOC: HO.RESP 08:30
PROVIDERS: Visit Provider Nurse Practitioner Family
DX: R05.9 Cough, unspecified (principal)
CPT/HCPCS: 94010; 94640; 94727; 94729

== ENCOUNTER → 2025-07-30 08:59 | Outpatient (BNV) | payer MEDICARE, OTHER, SELFPAY | PROVIDERS: Visit Provider Internal Medicine Pulmonary Disease | DX: R05.9 Cough, unspecified (principal) | CPT/HCPCS: 94060; 94727; 94729 ==

== ENCOUNTER 2025-08-14 13:05 | Outpatient (REF) | payer MEDICARE, OTHER, SELFPAY ==
--- NOTE | ~2025-08-14 | FL_ITS ---
EXAMINATION: XA ABD PELVIS NEPHROSTOGRAPHY THROUGH EXISTING CATH RIGHT HISTORY: Unspecified hydronephrosis COMPARISON: Nephrostomy tube exchange May 22, 2025 FINDINGS: White Washer Piler film was obtained. The right nephrostomy tube was injected with 10 mL Omnipaque 300 contrast and nephrostogram obtained. Nephrostomy tube was sutured to the skin using a 3.0 nonabsorbable suture. White Washer Piler film demonstrates a nephrostomy tube projecting over the right flank. The tube has pulled back slightly with the pigtail portion in a lower pole calyx and no longer in the renal pelvis. No hydronephrosis. Visualized proximal ureter does not appear dilated. No contrast extravasation outside the collecting system or ureter. FL/FL Nephrostomy via Cath Rt IMPRESSION: Right nephrostomy tube in the right renal collecting system. This has pulled back slightly with the pigtail no longer in the renal pelvis and now in a lower pole calyx. Recommend tube exchange. Electronically signed by: Destini Delgado MD 08/14/2025 03:47 PM EDT
[2025-08-14] MEDS: iohexoL 300 MG/ML 50 ML INFUS..BTL 10 ML INTRAARTIC (15:07)
--- OUTSIDE RECORDS SUMMARY | 2025-08-14 16:27 | XMS_ITS | Encounter Summary ---
Author Organization [facility] Address [address] [place] [address] Care Team Providers Care Contact Lens Inspector Name Role Phone Morris Rizzo Primary Care Provider [phone] Encounter Details Date Type Department Care Team (Late st Contact Info) Description 04/15/2024 Orders Only [facility] [address] [facility], 5th [place] [address] Shola Arroyo MD [address] [place] [address] Social History Tobacco Use Types Packs/Day Years [...] on filedocumented in this encounter Care Teams Contact Lens Inspector Relationship Specialty Start Date End Date Morris Rizzo [address] [place] [address] [place] [address] PCP - General Internal Medicine 01/09/24 documented as of this encounter
--- OUTSIDE RECORDS SUMMARY | 2025-08-14 16:27 | XMS_ITS | Encounter Summary ---
Author Organization [facility] Address [address] [place] [address] Care Team Providers Care Roustabout Crew Pusher Name Role Phone Morris Rizzo MD Primary Care Provider [phone] Encounter Details Date Type Department Care Team (Late st Contact Info) Description 02/03/2025 Lab Requisition [facility] - Main Lab [address] [facility] [place] [address] Alexys Puentes MD [address] [place] [address] Chronic kidney disease, unspecified; Hyperlipidemia, unspecified; Thyrotoxicosis, [...] g/dL LAB CHE[facility] Albumin 2.6(L) 3.2 - 5.0 g/dL LAB CHEMISTRY METHOD 02/04/2025 12:03 PM EDT [facility] Total Bilirubin 0.8 0.0 - [...] Puentes MD LAB BLOOD ORDERABLES Final Result [facility] [address] [place], [place] [address] [phone] * (ABNORMAL) Basic metabolic panel (02/04/2025 8:05 [...] Puentes MD LAB BLOOD ORDERABLES Final Result [facility] [address] [place] [address], [place] [phone] * (ABNORMAL) Complete blood count (02/04/2025 8:05 AM EDT) WBC 4.8 4.8 - 10.8 K/mcL LAB HEMETOLOGY METHOD 02/04/2025 11:16 AM EDT [facility] RBC 3.10(L) 4.50 - 5.50 [...] LAB HEMETOLOGY METHOD 02/04/2025 11:16 AM EDT [facility] MPV 10.3 7.0 - 11.0 FL LAB HEMETOLOGY METHOD 02/04/2025 11:16 AM EDT [facility] NRBC 0.6 <1.0 % LAB HEMETOLOG METHOD 02/04/2025 11:16 AM EDT [facility] NRBC Absolute 0.03 <0.10 K/mcL LAB HEMETOLOGY METHOD 02/04/2025 11:16 AM EDT [facility] Blood Venous blood specimen / Unknown Venipuncture / Unknown 02/04/2025 8:05 AM EDT 02/04/2025 10:03 AM EDT us Alexys Puentes MD LAB BLOOD ORDERABLES Final Result [facility] [address] [place] [address], documented in this encounter Visit Diagnoses Diagnosis Chronic kidney disease, unspecified Hyperlipidemia, unspecified Thyrotoxicosis, unspecified without thyrotoxic crisis or storm documented in this encounter Care Teams Roustabout Crew Pusher Relationship Specialty Start Date End Date Morris Rizzo MD [address] [place] [address] PCP - General Internal Medicine 05/27/22 documented as of this encounter
--- OUTSIDE RECORDS SUMMARY | 2025-08-14 16:27 | XMS_ITS ---
Author Organization [facility] Address [address] [place] [address] Care Team Providers Care Saxophone Assembler Name Role Phone Morris Rizzo Primary [...] TotalDLP 1,042 mGy 1,042 mGy 0 mGy [id number] 13.5 mSv 13.5 mSv 0 mSv CTDIvol Max 11.8 mGy 11.8 mGy 0 mGy CTDIvol Min 7.3 mGy 7.3 mGy 0 mGy
--- OUTSIDE RECORDS SUMMARY | 2025-08-14 16:27 | XMS_ITS | Encounter Summary ---
Author Organization [facility] Address [address] [place] [address] Care Team Providers Care Light Truck Driver Name Role Phone Morris Rizzo MD Primary Care Provider [phone] Encounter Details Date Type Department Care Team (Late st Contact Info) Description 02/17/2025 Lab Requisition [facility] - Main Lab [address] [facility] [place] [address] Alexys Puentes MD [address] [place] [address] Chronic kidney disease, unspecified; Hyperlipidemia, unspecified; Thyrotoxicosis, [...] mmol/L LAB CHEMISTRY METHOD 02/18/2025 11:25 AM [facility] Potassium 3.7 3.5 - 5.5 mmol/L LAB CHEMISTRY METHOD 02/18/2025 11:25 AM [facility] Chloride 107 96 - 110 mmol/L LAB CHEMISTRY METHOD 02/18/2025 11:25 AM [facility] CO2 26 21 - 32 mmol/L LAB CHEMISTRY METHOD 02/18/2025 11:25 AM [facility] Anion Gap 5 3 - 11 LAB CHEMISTRY METHOD 02/18/2025 11:25 AM [facility] Glucose 85 70 - 100 mg/dL LAB CHEMISTRY METHOD 02/18/2025 11:25 AM [facility] BUN 29(H) 5 - 25 mg/dL LAB CHEMISTRY METHOD 02/18/2025 11:25 AM [facility] Creatinine 1.67(H) 0.70 - 1.30 mg/dL LAB CHEMISTRY METHOD 02/18/2025 11:25 AM [facility] eGFR 45(L) >=60 mL/min/1. 73m2 LAB CHEMISTRY METHOD 02/18/2025 11:25 AM [facility] Comment:Calculation based on the Chronic Kidney Disease Epidemiology Collaboration (CKD-EPI) equation refit without adjustment for race. BUN/Creatinine Ratio 17.4 LAB CHEMISTRY METHOD 02/18/2025 11:25 AM [facility] Calcium 8.7 8.5 - 10.5 mg/dL LAB CHEMISTRY METHOD 02/18/2025 11:25 AM [facility] Blood Venous blood specimen / Unknown Venipuncture / Unknown 02/18/2025 6:52 AM EDT 02/18/2025 10:38 AM EDT Alexys Puentes MD LAB BLOOD ORDERABLES Final Result [facility] [address] [place] [address], * (ABNORMAL) Complete blood count (02/18/2025 6:52 AM EDT) WBC 4.2(L) 4.8 - 10.8 K/mcL LAB HEMETOLOGY METHOD 02/18/2025 10:58 AM EDT [facility] RBC 2.80(L) 4.50 - 5.50 M/mcL LAB HEMETOLOGY METHOD 02/18/2025 10:58 AM EDT [facility] Hemoglobin 9.4(L) 13.5 - 17.5 g/dL LAB HEMETOLOGY METHOD 02/18/2025 10:58 AM EDT [facility] Hematocrit 29.1(L) 42.0 - 54.0 % LAB HEMETOLOGY METHOD 02/18/2025 10:58 AM EDT [facility] MCV 103.9(H) 79.0 - 98.0 FL LAB HEMETOLOGY METHOD 02/18/2025 10:58 AM EDT [facility] MCH 33.6(H) 27.0 - 32.0 pcg LAB HEMETOLOGY METHOD 02/18/2025 10:58 AM EDT [facility] MCHC 32.3 32.0 - 37.0 g/dL LAB HEMETOLOGY METHOD 02/18/2025 10:58 AM EDT [facility] RDW 20.8(H) 11.0 - 15.0 % LAB HEMETOLOGY METHOD 02/18/2025 10:58 AM EDT [facility] Platelets 206 130 - 400 K/mcL LAB HEMETOLOGY METHOD 02/18/2025 10:58 AM EDT [facility] MPV 9.7 7.0 - 11.0 FL LAB HEMETOLOGY METHOD 02/18/2025 10:58 AM EDT [facility] NRBC 1.0(H) <1.0 % LAB HEMETOLOGY METHOD 02/18/2025 10:58 AM EDT [facility] NRBC Absolute 0.04 <0.10 K/mcL [facility] 02/18/2025 10:58 AM EDT [facility] Blood Venous blood specimen / Unknown Venipuncture / Unknown 02/18/2025 6:52 AM EDT 02/18/2025 10:37 AM EDT us Alexys Puentes MD LAB BLOOD ORDERABLES Final Result [facility] [address] [place] [address], documented in this encounter Visit Diagnoses Diagnosis Chronic kidney disease, unspecified Hyperlipidemia, unspecified Thyrotoxicosis, unspecified without thyrotoxic crisis or storm documented in this encounter Care Teams Light Truck Driver Relationship Specialty Start Date End Date Morris Rizzo MD [address] [place] [address] PCP - General Internal Medicine 05/27/22 documented as of this encounter
--- OUTSIDE RECORDS SUMMARY | 2025-08-14 16:27 | XMS_ITS | Encounter Summary ---
Author Organization [facility] Address [address] [place] [address] Care Team Providers Care Customer Greeter Name Role Phone Morris Rizzo MD Primary Care Provider [phone] Encounter Details Date Type Department Care Team (Late st Contact Info) Description 02/10/2025 Lab Requisition [facility] - Main Lab [address] [facility] [place] [address] Alexys Puentes MD [address] [place] [address] Chronic kidney disease, unspecified; Hyperlipidemia, unspecified; Thyrotoxicosis, [...] free t3 (02/11/2025 7:58 AM EDT) Pathologist [facility] TSH 2.86 0.40 - 4.00 mcIU/mL LAB CHEMISTRY METHOD 02/11/2025 1:02 PM EDT [facility] Blood Venous blood specimen / Unknown Venipuncture / Unknown 02/11/2025 7:58 AM EDT 02/11/2025 9:08 AM EDT Alexys Puentes MD LAB BLOOD ORDERABLES Final Result [facility] [address] [place] [address], * (ABNORMAL) Basic metabolic panel (02/11/2025 7:58 AM EDT) [facility] Sodium 143 133 - 145 mmol/L LAB CHEMISTRY METHOD 02/11/2025 11:11 AM [facility] Potassium 4.4 3.5 - 5.5 mmol/L LAB CHEMISTRY METHOD 02/11/2025 11:11 AM [facility] Chloride 109 96 - 110 mmol/L LAB CHEMISTRY METHOD 02/11/2025 11:11 AM [facility] CO2 27 21 - 32 mmol/L LAB CHEMISTRY METHOD 02/11/2025 11:11 AM [facility] Anion Gap 7 3 - 11 LAB CHEMISTRY METHOD 02/11/2025 11:11 AM [facility] Glucose 89 70 - 100 mg/dL LAB CHEMISTRY METHOD 02/11/2025 11:11 AM [facility] BUN 31(H) 5 - 25 mg/dL LAB CHEMISTRY METHOD 02/11/2025 11:11 AM EDT [facility] Creatinine 1.67(H) 0.70 - 1.30 mg/dL LAB CHEMISTRY METHOD 02/11/2025 11:11 AM EDT [facility] eGFR 45(L) >=60 mL/min/1. 73m2 LAB CHEMISTRY METHOD 02/11/2025 11:11 AM EDT [facility] Comment:Calculation based on the Chronic Kidney Disease Epidemiology Collaboration (CKD-EPI) equation refit without adjustment for race. BUN/Creatinine Ratio 18.6 LAB CHEMISTRY METHOD 02/11/2025 11:11 AM EDT [facility] Calcium 8.7 8.5 - 10.5 mg/dL LAB CHEMISTRY METHOD 02/11/2025 11:11 AM [facility] Blood Venous blood specimen / Unknown Venipuncture / Unknown 02/11/2025 7:58 AM EDT 02/11/2025 9:08 AM EDT us Alexys Puentes MD LAB BLOOD ORDERABLES Final Result [facility] [address] [place] [address], * (ABNORMAL) Complete blood count (02/11/2025 7:58 AM EDT) WBC 5.0 4.8 - 10.8 K/mcL LAB HEMETOLOGY METHOD 02/11/2025 10:45 AM EDT [facility] RBC 2.90(L) 4.50 - 5.50 M/mcL LAB HEMETOLOGY METHOD 02/11/2025 10:45 AM EDT [facility] Hemoglobin 9.4(L) 13.5 - 17.5 g/dL LAB HEMETOLOGY METHOD 02/11/2025 10:45 AM EDT [facility] Hematocrit 29.0(L) 42.0 - 54.0 % LAB HEMETOLOGY METHOD 02/11/2025 10:45 AM EDT [facility] MCV 101.4(H) 79.0 - 98.0 FL LAB HEMETOLOGY METHOD 02/11/2025 10:45 AM EDT [facility] MCH 32.9(H) 27.0 - 32.0 pcg LAB HEMETOLOGY METHOD 02/11/2025 10:45 AM EDT [facility] MCHC 32.4 32.0 - 37.0 g/dL LAB HEMETOLOGY METHOD 02/11/2025 10:45 AM EDT [facility] RDW 20.2(H) 11.0 - 15.0 % LAB HEMETOLOGY METHOD 02/11/2025 10:45 AM T [facility] Platelets 203 130 - 400 K/mcL LAB HEMETOLOGY METHOD 02/11/2025 10:45 AM EDT [facility] MPV 9.8 7.0 - 11.0 FL LAB HEMETOLOGY METHOD 02/11/2025 10:45 AM EDT [facility] NRBC 1.0(H) <1.0 % LAB HEMETOLOGY METHOD 02/11/2025 10:45 AM T [facility] NRBC Absolute 0.05 <0.10 K/mcL LAB HEMETOLOGY METHOD 02/11/2025 10:45 AM EDT [facility] Blood Venous blood specimen / Unknown Venipuncture / Unknown 02/11/2025 7:58 AM EDT 02/11/2025 9:08 AM EDT us Alexys Puentes MD LAB BLOOD ORDERABLES Final Result [facility] [address] [place] [address], documented in this encounter Visit Diagnoses Diagnosis Chronic kidney disease, unspecified Hyperlipidemia, unspecified Thyrotoxicosis, unspecified without thyrotoxic crisis or storm Disorder of thyroid, unspecified documented in this encounter Care Teams Customer Greeter Relationship Specialty Start Date End Date Morris Rizzo MD [address] [place] [address] Drive [address] [place] [address] PCP - General Internal Medicine 05/27/22 documented as of this encounter
--- OUTSIDE RECORDS SUMMARY | 2025-08-14 16:27 | XMS_ITS | Clinical Summary ---
Author Organization [facility] Address [address] [facility] [address] [place], [place] [phone] Phone Care Team Providers Care Snowboard Designer Name Role Phone Unavailable Primary Care Provider [...] [place] [id number] MEDICARE PART A & B MEDICARE PART A & B MEDICARE PART A & B MEDICARE PART A & B MEDICARE PART A & B Additional Source Comments The information contained in this document represents components of the legal health record. It is not the complete legal health record.[facility]
--- OUTSIDE RECORDS SUMMARY | 2025-08-14 16:27 | XMS_ITS | Clinical Summary ---
Author Organization [facility] Address [address] [place] [address] Phone Care Team Providers Care Grip Name Role Phone Morris Rizzo MD Primary Care Provider [phone] Encounters Date Type Department Care Team Description 06/19/2025 Telephone Lung Screening Program - [place] [address] [facility] [address] [place] [id number] Edelmira Morales MA from Last 3 Months Social History Tobacco Use Types Packs/Day Years Used Date Smoking Tobacco: Never Assessed Sex and Gender Information Value Date Recorded Sex Assigned at Not on file Legal Sex Male 8:59 PM EST Gender Identity Not on file Sexual Orientation Not on file Plan of Treatment Health Maintenance Due Date Last Done Comments Colorectal Cancer Screening: Colonoscopy 1960 DTaP,Tdap,and Td Vaccines (1 - Tdap) 1977 Pneumococcal Vaccine: 50+ Years (1 of 1 - PCV) 2008 Zoster Vaccines (1 of 2) 2008 Abdominal Aortic Aneurysm (AAA) Screen 09/24/2022 Cholesterol Screening (Lipid Panel) 09/24/2022 Hepatitis C Screening 09/24/2022 Medicare Annual [...] Recently Relevant to Health Maintenance Results * CT LUNG SCREENING LOW DOSE (08/19/2024 6:31 AM EDT) Anatomical Region Laterality Modality Computed Tomogra phy 08/17/2024 7:23 AM EDT Narrative 08/19/2024 6:31 AM EDT [facility] Diagnostic Imaging Department [address] [place] [address] Patient: JOSE LAMBERT/Age/Sex: 1960 - 63 - M Unit#: [id number] Location/Status: SPDICATLS/REG CLI Mnemonic/Ordering Site: [facility] Ordering Physician: SUYAPA WEST MD CT Lung Screening Low Dose - 08/17/24 - 728 Report Status:Signed Indication: Greater than 20 total [...] Procedure Note Alpa Lorenzana MD - 08/24/2024 [facility] Diagnostic Imaging Department [address] [place] [id number] Patient: JOSE LAMBERT Chandler Shay./Age/Sex: 1960 - 63 - M Unit#: [id number] Location/Status: [facility] CLI Mnemonic/Ordering Site: [facility] Ordering Physician: SUYAPA WEST MD CT [...] Recently Relevant to Health Maintenance Insurance MEDICARE [facility] Care Teams Grip Relationship Specialty Start Date End Date Morris Rizzo MD [address] [place] [address] PCP - General Internal Medicine 05/27/22
--- OUTSIDE RECORDS SUMMARY | 2025-08-14 16:27 | XMS_ITS | Clinical Summary ---
Author Organization [facility] Address [address] [place] [address] Care Team Providers Care Profiler Operator Name Role Phone Morris Rizzo Primary Care Provider [phone] Allergies No known active allergies Medications atorvastatin [...] Cessation:Counseling Given: Not Answered Comments:On and off [phone] smoking, at most 1 PPD Alcohol Use [...] Completed 08/03/2023 Procedures * Due to [place] law, this organization might not be sharing negative HIV tests. Procedure Name Priority Date/Time Associated Diagnosis Comments AMB EXTERNAL CT CHEST, OUTSI DE RESULT 01/23/2024 from Last 3 Months or Most Recently Relevant to Health Maintenance Results * Due to [place] law, this organization might not be sharing negative HIV tests. * AMB EXTERNAL CT CHEST, OUTSIDE RESULT (01/23/2024) Anatomical Region Laterality Modality [facility]ED[facility] S Final Result from Last 3 Months or Most Recently Relevant to Health Maintenance Insurance MEDICARE [facility] Advance Directives Documents on File Type Date Recorded Patient Spring Former Hand Expl anation Health Care Proxy 05/27/2024 7:26 AM Care Teams Profiler Operator Relationship Specialty Start Date End Date Morris Rizzo [address] [place] [address] [place] [address] PCP - General Internal Medicine 01/09/24
--- OUTSIDE RECORDS SUMMARY | 2025-08-14 16:27 | XMS_ITS | Encounter Summary ---
Author Organization [facility] Address [address] [place] [address] Care Team Providers Care Forge Utility Worker Name Role Phone Morris Rizzo MD Primary Care Provider [phone] Encounter Details Date Type Department Care Team (Late st Contact Info) Description 01/28/2025 Lab Requisition [facility] - Main Lab [address] [facility] [place] [address] Alexys Puentes MD [address] [place] [address] Chronic kidney disease, unspecified; Hyperlipidemia, unspecified; Hypothyroidism, [...] mmol/L LAB CHEMISTRY METHOD 01/28/2025 11:56 AM [facility] Potassium 4.0 3.5 - 5.5 mmol/L LAB CHEMISTRY METHOD 01/28/2025 11:56 AM [facility] Chloride 101 96 - 110 mmol/L LAB CHEMISTRY METHOD 01/28/2025 11:56 AM [facility] CO2 27 21 - 32 mmol/L LAB CHEMISTRY METHOD 01/28/2025 11:56 AM [facility] Anion Gap 7 3 - 11 LAB CHEMISTRY METHOD 01/28/2025 11:56 AM [facility] Glucose 87 70 - 100 mg/dL LAB CHEMISTRY METHOD 01/28/2025 11:56 AM [facility] BUN 44(H) 5 - 25 mg/dL LAB CHEMISTRY METHOD 01/28/2025 11:56 AM [facility] Creatinine 1.39(H) 0.70 - 1.30 mg/dL LAB CHEMISTRY METHOD 01/28/2025 11:56 AM [facility] eGFR 56(L) >=60 mL/min/1. 73m2 LAB CHEMISTRY METHOD 01/28/2025 11:56 AM [facility] Comment:Calculation based on the Chronic Kidney Disease Epidemiology Collaboration (CKD-EPI) equation refit without adjustment for race. BUN/Creatinine Ratio 31.7 LAB CHEMISTRY METHOD 01/28/2025 11:56 AM [facility] Calcium 8.8 8.5 - 10.5 mg/dL LAB CHEMISTRY METHOD 01/28/2025 11:56 AM [facility] AST (SGOT) 39 10 - 42 unit/L LAB CHEMISTRY METHOD 01/28/2025 11:56 AM [facility] ALT (SGPT) 105(H) 10 - 60 unit/L LAB CHEMISTRY METHOD 01/28/2025 11:56 AM [facility] Alkaline Phosphatase 147(H) 42 - 121 unit/L LAB CHEMISTRY METHOD 01/28/2025 11:56 AM EDT [facility] Total Protein 5.5(L) 6.0 - 8.0 g/dL LAB CHEMISTRY METHOD 01/28/2025 11:56 AM [facility] Albumin 2.6(L) 3.2 - 5.0 g/dL LAB CHEMISTRY METHOD 01/28/2025 11:56 AM [facility] Total Bilirubin 0.9 0.0 - 1.4 mg/dL LAB CHEMISTRY METHOD 01/28/2025 11:56 AM T [facility] Blood Venous blood specimen / Unknown Venipuncture / Unknown 01/28/2025 8:36 AM EDT 01/28/2025 10:43 AM EDT Alexys Puentes MD LAB BLOOD ORDERABLES Final Result [facility] [address] [place] [address], * (ABNORMAL) Complete blood count (01/28/2025 8:36 AM EDT) WBC 5.1 4.8 - 10.8 K/[facility] LAB HEMETOLOGY METHOD 01/28/2025 12:04 PM [facility] RBC 3.50(L) 4.50 - 5.50 M/[facility] LAB HEMETOLOGY METHOD 01/28/2025 12:04 PM [facility] Hemoglobin 11.6(L) 13.5 - 17.5 g/dL LAB HEMETOLOGY METHOD 01/28/2025 12:04 PM [facility] Hematocrit 34.2(L) 42.0 - 54.0 % LAB HEMETOLOGY METHOD 01/28/2025 12:04 PM [facility] MCV 96.6 79.0 - 98.0 FL LAB HEMETOLOGY METHOD 01/28/2025 12:04 PM EDT [facility] MCH 32.8(H) 27.0 - 32.0 pcg LAB HEMETOLOGY METHOD 01/28/2025 12:04 PM EDT [facility] MCHC 33.9 32.0 - 37.0 g/dL LAB HEMETOLOGY METHOD 01/28/2025 12:04 PM EDT [facility] RDW 18.3(H) 11.0 - 15.0 % LAB HEMETOLOGY METHOD 01/28/2025 12:04 PM EDT [facility] Platelets 92(L) 130 - 400 K/mcL LAB HEMETOLOGY METHOD 01/28/2025 12:04 PM EDT [facility] Comment:reviewed by slide MPV 10.4 7.0 - 11.0 FL LAB HEMETOLOGY METHOD 01/28/2025 12:04 PM EDT [facility] NRBC 0.4 <1.0 % LAB HEMETOLOGY METHOD 01/28/2025 12:04 PM EDT [facility] NRBC Absolute 0.02 <0.10 K/mcL LAB HEMETOLOGY METHOD 01/28/2025 12:04 PM EDT [facility] Blood Venous blood specimen / Unknown Venipuncture / Unknown 01/28/2025 8:36 AM EDT 01/28/2025 10:43 AM EDT us Alexys Puentes MD LAB BLOOD ORDERABLES Final Result [facility] [address] [place] [address], documented in this encounter Visit Diagnoses Diagnosis Chronic kidney disease, unspecified Hyperlipidemia, unspecified Hypothyroidism, unspecified documented in this encounter Care Teams Forge Utility Worker Relationship Specialty Start Date End Date Morris Rizzo MD [address] [place] [address] PCP - General Internal Medicine 05/27/22 documented as of this encounter
== END 2025-08-14 13:06 | disposition home or self-care (01) ==
LOC: HO.XRAY 13:05
PROVIDERS: Visit Provider Urology
DX: N13.30 Unspecified hydronephrosis (principal)
CPT/HCPCS: 50431; Q9967

== ENCOUNTER → 2025-08-14 14:29 | Outpatient (BNV) | payer MEDICARE, OTHER, SELFPAY | PROVIDERS: Visit Provider Radiology Diagnostic Radiology | DX: N13.30 Unspecified hydronephrosis (principal) | CPT/HCPCS: 50431 ==

== ENCOUNTER 2025-08-15 05:59 | Outpatient (REF) | payer MEDICARE, OTHER, SELFPAY ==
--- OUTSIDE RECORDS SUMMARY | 2025-08-15 06:02 | XMS_ITS | Encounter Summary ---
Author Organization [facility] Address [address] [place] [address] Care Team Providers Care Agricultural Research Technician Name Role Phone Morris Rizzo MD Primary Care Provider [phone] Encounter Details Date Type Department Care Team (Late st Contact Info) Description 02/10/2025 Lab Requisition [facility] - Main Lab [address] [facility] [place] [address] Alexys Puentes MD [address] [place] [address] Chronic kidney disease, unspecified; Hyperlipidemia, unspecified; Thyrotoxicosis, [...] free t3 (02/11/2025 7:58 AM EDT) Pathologist [facility] TSH 2.86 0.40 - 4.00 mcIU/mL LAB CHEMISTRY METHOD 02/11/2025 1:02 PM EDT [facility] Blood Venous blood specimen / Unknown Venipuncture / Unknown 02/11/2025 7:58 AM EDT 02/11/2025 9:08 AM EDT Alexys Puentes MD LAB BLOOD ORDERABLES Final Result [facility] [address] [place] [address], * (ABNORMAL) Basic metabolic panel (02/11/2025 7:58 AM EDT) [facility] [address] Sodium 143 133 - 145 mmol/L LAB CHEMISTRY METHOD 02/11/2025 11:11 AM [facility] Potassium 4.4 3.5 - 5.5 mmol/L LAB CHEMISTRY METHOD 02/11/2025 11:11 AM [facility] Chloride 109 96 - 110 mmol/L LAB CHEMISTRY METHOD 02/11/2025 11:11 AM [facility] CO2 27 21 - 32 mmol/L LAB CHEMISTRY METHOD 02/11/2025 11:11 AM [facility] Anion Gap 7 3 - 11 LAB CHEMISTRY METHOD 02/11/2025 11:11 AM [facility] Glucose 89 70 - 100 mg/dL LAB CHEMISTRY METHOD 02/11/2025 11:11 AM [facility] BUN 31(H) 5 - 25 mg/dL LAB CHEMISTRY METHOD 02/11/2025 11:11 AM EDT [facility] Creatinine 1.67(H) 0.70 - 1.30 mg/dL LAB CHEMISTRY METHOD 02/11/2025 11:11 AM EDT [facility] eGFR 45(L) >=60 mL/min/1. 73m2 LAB CHEMISTRY METHOD 02/11/2025 11:11 AM EDT [facility] Comment:Calculation based on the Chronic Kidney Disease Epidemiology Collaboration (CKD-EPI) equation refit without adjustment for race. BUN/Creatinine Ratio 18.6 LAB CHEMISTRY METHOD 02/11/2025 11:11 AM EDT [facility] Calcium 8.7 8.5 - 10.5 mg/dL LAB CHEMISTRY METHOD 02/11/2025 11:11 AM [facility] Blood Venous blood specimen / Unknown Venipuncture / Unknown 02/11/2025 7:58 AM EDT 02/11/2025 9:08 AM EDT us Alexys Puentes MD LAB BLOOD ORDERABLES Final Result [facility] [address] [place] [address], * (ABNORMAL) Complete blood count (02/11/2025 7:58 AM EDT) WBC 5.0 4.8 - 10.8 K/mcL LAB HEMETOLOGY METHOD 02/11/2025 10:45 AM EDT [facility] RBC 2.90(L) 4.50 - 5.50 M/mcL LAB HEMETOLOGY METHOD 02/11/2025 10:45 AM EDT [facility] Hemoglobin 9.4(L) 13.5 - 17.5 g/dL LAB HEMETOLOGY METHOD 02/11/2025 10:45 AM EDT [facility] Hematocrit 29.0(L) 42.0 - 54.0 % LAB HEMETOLOGY METHOD 02/11/2025 10:45 AM EDT [facility] MCV 101.4(H) 79.0 - 98.0 FL LAB HEMETOLOGY METHOD 02/11/2025 10:45 AM EDT [facility] MCH 32.9(H) 27.0 - 32.0 pcg LAB HEMETOLOGY METHOD 02/11/2025 10:45 AM EDT [facility] MCHC 32.4 32.0 - 37.0 g/dL LAB HEMETOLOGY METHOD 02/11/2025 10:45 AM EDT [facility] RDW 20.2(H) 11.0 - 15.0 % LAB HEMETOLOGY METHOD 02/11/2025 10:45 AM T [facility] Platelets 203 130 - 400 K/mcL LAB HEMETOLOGY METHOD 02/11/2025 10:45 AM EDT [facility] MPV 9.8 7.0 - 11.0 FL LAB HEMETOLOGY METHOD 02/11/2025 10:45 AM EDT [facility] NRBC 1.0(H) <1.0 % LAB HEMETOLOGY METHOD 02/11/2025 10:45 AM T [facility] NRBC Absolute 0.05 <0.10 K/mcL LAB HEMETOLOGY METHOD 02/11/2025 10:45 AM EDT [facility] Blood Venous blood specimen / Unknown Venipuncture / Unknown 02/11/2025 7:58 AM EDT 02/11/2025 9:08 AM EDT us Alexys Puentes MD LAB BLOOD ORDERABLES Final Result [facility] [address] [place] [address], documented in this encounter Visit Diagnoses Diagnosis Chronic kidney disease, unspecified Hyperlipidemia, unspecified Thyrotoxicosis, unspecified without thyrotoxic crisis or storm Disorder of thyroid, unspecified documented in this encounter Care Teams Agricultural Research Technician Relationship Specialty Start Date End Date Morris Rizzo MD [address] [place] [address] Drive [address] [place] [address] PCP - General Internal Medicine 05/27/22 documented as of this encounter
--- OUTSIDE RECORDS SUMMARY | 2025-08-15 06:02 | XMS_ITS | Clinical Summary ---
Author Organization [facility] Address [address] [place] [address] Phone Care Team Providers Care Director Technical Name Role Phone Morris Rizzo MD Primary Care Provider [phone] Encounters Date Type Department Care Team Description 06/19/2025 Telephone Lung Screening Program - [place] [address] [facility] [address] [place] [id number] Edelmira Morales MA from Last 3 Months [...] EDT [facility] Diagnostic Imaging Department [address] [place] [address] Patient: JOSE LAMBERT/Age/Sex: 1960 - 63 - M Unit#: [id number] Location/Status: SPDICATLS/REG CLI Mnemonic/Ordering Site: [facility] Ordering Physician: SUYAPA WEST MD [...] 08/24/2024 [facility] Diagnostic Imaging Department [address] [place] [address] [id number] Patient: JOSE LAMBERT Chandler Shya./Age/Sex: 1960 - 63 - M Unit#: [id number] Location/Status: [facility] CLI Mnemonic/Ordering Site: [facility] Ordering Physician: SUYAPA WEST MD [...] Recently Relevant to Health Maintenance Insurance MEDICARE [facility] Care Teams Director Technical Relationship Specialty Start Date End Date Morris Rizzo MD [address] [place] [address] PCP - General Internal Medicine 05/27/22
--- OUTSIDE RECORDS SUMMARY | 2025-08-15 06:02 | XMS_ITS | Encounter Summary ---
Author Organization [facility] Address [address] [place] [address] Care Team Providers Care Executive Director Of Marketing Name Role Phone Morris Rizzo MD Primary Care Provider [phone] Encounter Details Date Type Department Care Team (Late st Contact Info) Description 02/17/2025 Lab Requisition [facility] - Main Lab [address] [facility] [place] [address] Alexys Puentes MD [address] [place] [address] Chronic kidney disease, unspecified; Hyperlipidemia, unspecified; Thyrotoxicosis, [...] Puentes MD LAB BLOOD ORDERABLES Final Result [facility] [address] [place] [address], * (ABNORMAL) Complete blood count (02/18/2025 6:52 AM EDT) WBC 4.2(L) 4.8 - 10.8 K/mcL LAB HEMETOLOGY METHOD 02/18/2025 10:58 AM EDT [facility] RBC 2.80(L) 4.50 - 5.50 M/mcL LAB HEMETOLOGY METHOD 02/18/2025 10:58 AM EDT [facility] Hemoglobin 9.4(L) 13.5 - 17.5 g/dL LAB HEMETOLOGY METHOD 02/18/2025 10:58 AM EDT [facility] Hematocrit 29.1(L) 42.0 - 54.0 % LAB HEMETOLOGY METHOD 02/18/2025 10:58 AM EDT [facility] MCV 103.9(H) 79.0 - 98.0 FL LAB HEMETOLOGY METHOD 02/18/2025 10:58 AM EDT [facility] MCH 33.6(H) 27.0 - 32.0 pcg LAB HEMETOLOGY METHOD 02/18/2025 10:58 AM EDT [facility] MCHC 32.3 32.0 - 37.0 g/dL LAB HEMETOLOGY METHOD 02/18/2025 10:58 AM EDT [facility] RDW 20.8(H) 11.0 - 15.0 % LAB HEMETOLOGY METHOD 02/18/2025 10:58 AM EDT [facility] Platelets 206 130 - 400 K/mcL LAB HEMETOLOGY METHOD 02/18/2025 10:58 AM EDT [facility] MPV 9.7 7.0 - 11.0 FL LAB HEMETOLOGY METHOD 02/18/2025 10:58 AM EDT [facility] NRBC 1.0(H) <1.0 % LAB HEMETOLOGY METHOD 02/18/2025 10:58 AM EDT [facility] NRBC Absolute 0.04 <0.10 K/mcL [facility] 02/18/2025 10:58 AM EDT [facility] Blood Venous blood specimen / Unknown Venipuncture / Unknown 02/18/2025 6:52 AM EDT 02/18/2025 10:37 AM EDT us Alexys Puentes MD LAB BLOOD ORDERABLES Final Result [facility] [address] [place] [address], documented in this encounter Visit Diagnoses Diagnosis Chronic kidney disease, unspecified Hyperlipidemia, unspecified Thyrotoxicosis, unspecified without thyrotoxic crisis or storm documented in this encounter Care Teams Executive Director Of Marketing Relationship Specialty Start Date End Date Morris Rizzo MD [address] [place] [address] PCP - General Internal Medicine 05/27/22 documented as of this encounter
--- OUTSIDE RECORDS SUMMARY | 2025-08-15 06:02 | XMS_ITS ---
Author Organization [facility] Address [address] [place] [address] Care Team Providers Care Adolescent Coordinator Name Role Phone Morris Rizzo Primary Care Provider [phone] Active Problems Problem Noted Date Diagnosed Date Hyperkalemia 05/30/2024 Malignant neoplasm of overlapping sites of bladd er 03/04/2024 Other hydronephrosis 03/04/2024 Current Treatment and Therapy Plans No current plan information found. Past Treatment and Therapy Plans No past plan information found. Lifetime Dose Tracking * Chemical Lifetime Dose Automatic Entry Manual Entr y TotalDLP 1,042 mGy 1,042 mGy 0 mGy [id number] 13.5 mSv 13.5 mSv 0 mSv CTDIvol Max 11.8 mGy 11.8 mGy 0 mGy CTDIvol Min 7.3 mGy 7.3 mGy 0 mGy
--- OUTSIDE RECORDS SUMMARY | 2025-08-15 06:02 | XMS_ITS | Clinical Summary ---
Author Organization [facility] Address [address] [place] [address] Care Team Providers Care Butter Liquefier Name Role Phone Morris Rizzo Primary Care Provider [phone] Allergies No known active allergies Medications atorvastatin [...] Cessation:Counseling Given: Not Answered Comments:On and off [id number] smoking, at most 1 PPD Alcohol Use [...] 08/03/2023 Procedures * Due to [place] REsc[employer] law, this organization might not be sharing negative HIV tests. Procedure Name Priority Date/Time Associated Diagnosis Comments AMB EXTERNAL CT CHEST, OUTSI DE RESULT 01/23/2024 from Last 3 Months or Most Recently Relevant to Health Maintenance Results * Due to [place] REsc[employer] law, this organization might not be sharing negative HIV tests. * AMB EXTERNAL CT CHEST, OUTSIDE RESULT (01/23/2024) Anatomical Region Laterality Modality Other [facility]20[facility] EXTERNAL RESULT PROCEDURE S Final Result from Last 3 Months or Most Recently Relevant to Health Maintenance Insurance MEDICARE [facility] Advance Directives Documents on File Type Date Recorded Patient Provider Relations Representative Expl anation Health Care Proxy 05/27/2024 7:26 AM Care Teams Butter Liquefier Relationship Specialty Start Date End Date Morris Rizzo [address] [place] [address] [place] [address] PCP - General Internal Medicine 01/09/24
--- OUTSIDE RECORDS SUMMARY | 2025-08-15 06:02 | XMS_ITS | Encounter Summary ---
Author Organization [facility] Address [address] [place] [address] Care Team Providers Care Strip Winder Name Role Phone Morris Rizzo MD Primary Care Provider [phone] Encounter Details Date Type Department Care Team (Late st Contact Info) Description 02/03/2025 Lab Requisition [facility] - Main Lab [address] [facility] [place] [address] Alexys Puentes MD [address] [place] [address] Chronic kidney disease, unspecified; Hyperlipidemia, unspecified; Thyrotoxicosis, [...] g/dL LAB CHEMISTRY [facility] Albumin 2.6(L) 3.2 - 5.0 g/dL LAB CHEMISTRY METHOD 02/04/2025 12:03 PM EDT [facility] Total Bilirubin 0.8 0.0 - 1.4 mg/dL LAB CHEMISTRY METHOD 02/04/2025 12:03 PM [facility] Bilirubin, Direct 0.2 0.0 - 0.3 mg/dL LAB CHEMISTRY METHOD 02/04/2025 12:03 PM [facility] Bilirubin, Indirect 0.6 0.0 - 1.1 mg/dL LAB CHEMISTRY METHOD 02/04/2025 12:03 PM [facility] ALT (SGPT) 52 10 - 60 unit/L LAB CHEMISTRY METHOD 02/04/2025 12:03 PM [facility] AST (SGOT) 27 10 - 42 unit/L LAB CHEMISTRY METHOD 02/04/2025 12:03 PM [facility] Alkaline Phosphatase 128(H) 42 - 121 unit/L LAB CHEMISTRY METHOD 02/04/2025 12:03 PM [facility] Blood Venous blood specimen / Unknown Venipuncture / Unknown 02/04/2025 8:05 AM EDT 02/04/2025 10:03 AM EDT us Alexys Puentes MD LAB BLOOD ORDERABLES Final Result [facility] [address] [place], [place] [address] [phone] * (ABNORMAL) Basic metabolic panel (02/04/2025 8:05 AM EDT) Sodium 138 133 - 145 mmol/L LAB CHEMISTRY METHOD 02/04/2025 12:03 PM [facility] Potassium 3.4(L) 3.5 - 5.5 mmol/L LAB CHEMISTRY METHOD 02/04/2025 12:03 PM [facility] Chloride 105 96 - 110 mmol/L LAB CHEMISTRY METHOD 02/04/2025 12:03 PM [facility] CO2 27 21 - 32 mmol/L LAB CHEMISTRY METHOD 02/04/2025 12:03 PM [facility] Anion Gap 6 3 - 11 LAB CHEMISTRY METHOD 02/04/2025 12:03 PM [facility] Glucose 75 70 - 100 mg/dL LAB CHEMISTRY METHOD 02/04/2025 12:03 PM [facility] BUN 34(H) 5 - 25 mg/dL LAB CHEMISTRY METHOD 02/04/2025 12:03 PM [facility] Creatinine 1.66(H) 0.70 - 1.30 mg/dL LAB CHEMISTRY METHOD 02/04/2025 12:03 PM [facility] eGFR 45(L) >=60 mL/min/1. 73m2 LAB CHEMISTRY METHOD 02/04/2025 12:03 PM [facility] Comment:Calculation based on the Chronic Kidney Disease Epidemiology Collaboration (CKD-EPI) equation refit without adjustment for race. BUN/Creatinine Ratio 20.5 LAB CHEMISTRY METHOD 02/04/2025 12:03 PM [facility] Calcium 8.9 8.5 - 10.5 mg/dL LAB CHEMISTRY METHOD 02/04/2025 12:03 PM [facility] Blood Venous blood specimen / Unknown Venipuncture / Unknown 02/04/2025 8:05 AM EDT 02/04/2025 10:03 AM EDT us Alexys Puentes MD LAB BLOOD ORDERABLES Final Result [facility] [address] [place] [address], [place] [phone] * (ABNORMAL) Complete blood count (02/04/2025 8:05 AM EDT) WBC 4.8 4.8 - 10.8 K/mcL LAB HEMETOLOGY METHOD 02/04/2025 11:16 AM EDT [facility] RBC 3.10(L) 4.50 - 5.50 M/mcL LAB HEMETOLOGY METHOD 02/04/2025 11:16 AM [facility] Hemoglobin 9.9(L) 13.5 - 17.5 g/dL LAB HEMETOLOGY METHOD 02/04/2025 11:16 AM [facility] Hematocrit 29.6(L) 42.0 - 54.0 % LAB HEMETOLOGY METHOD 02/04/2025 11:16 AM [facility] MCV 97.0 79.0 - 98.0 FL LAB HEMETOLOGY METHOD 02/04/2025 11:16 AM [facility] MCH 32.5(H) 27.0 - 32.0 pcg LAB HEMETOLOGY METHOD 02/04/2025 11:16 AM [facility] MCHC 33.4 32.0 - 37.0 g/dL LAB HEMETOLOGY METHOD 02/04/2025 11:16 AM [facility] RDW 19.0(H) 11.0 - 15.0 % LAB HEMETOLOGY METHOD 02/04/2025 11:16 AM [facility] Platelets 120(L) 130 - [...] Result [facility] [address] [place] [address], documented in this encounter Visit Diagnoses Diagnosis Chronic kidney disease, unspecified Hyperlipidemia, unspecified Thyrotoxicosis, unspecified without thyrotoxic crisis or storm documented in this encounter Care Teams Strip Winder Relationship Specialty Start Date End Date Morris Rizzo MD [address] [place] [address] PCP - General Internal Medicine 05/27/22 documented as of this encounter
--- OUTSIDE RECORDS SUMMARY | 2025-08-15 06:02 | XMS_ITS | Clinical Summary ---
Author Organization [facility] Address [address] [facility] [address] [place], [place] [id number] Phone Care Team Providers Care Cartridge Feeder Name Role Phone Unavailable Primary Care Provider [...] [place] [id number] MEDICARE PART A & B MEDICARE PART A & B MEDICARE PART A & B MEDICARE PART A & B MEDICARE PART A & B Additional Source Comments The information contained in this document represents components of the legal health record. It is not the complete legal health record.[facility]
--- OUTSIDE RECORDS SUMMARY | 2025-08-15 06:02 | XMS_ITS | Encounter Summary ---
Author Organization [facility] Address [address] [place] [address] Care Team Providers Care Head Of Global Strategic Partnerships Name Role Phone Morris Rizzo Primary Care Provider [phone] Encounter Details Date Type Department Care Team (Late st Contact Info) Description 04/15/2024 Orders Only [facility] [address] [facility], 5th [place] [address] Shola Arroyo MD [address] [place] [address] Social History Tobacco Use Types Packs/Day Years [...] on filedocumented in this encounter Care Teams Head Of Global Strategic Partnerships Relationship Specialty Start Date End Date Morris Rizoz [address] [place] [address] [place] [address] PCP - General Internal Medicine 01/09/24 documented as of this encounter
--- OUTSIDE RECORDS SUMMARY | 2025-08-15 06:02 | XMS_ITS | Encounter Summary ---
Author Organization [facility] Address [address] [place] [address] Care Team Providers Care Product Expert Name Role Phone Morris Rizzo MD Primary Care Provider [phone] Encounter Details Date Type Department Care Team (Late st Contact Info) Description 01/28/2025 Lab Requisition [facility] - Main Lab 299 [facility] [place] [address] Alexys Puentes MD [address] [place] [address] Chronic kidney disease, unspecified; Hyperlipidemia, unspecified; Hypothyroidism, [...] mmol/L LAB CHEMISTRY METHOD 01/28/2025 11:56 AM [facility] Potassium 4.0 3.5 - 5.5 mmol/L LAB CHEMISTRY METHOD 01/28/2025 11:56 AM [facility] Chloride 101 96 - 110 mmol/L LAB CHEMISTRY METHOD 01/28/2025 11:56 AM [facility] CO2 27 21 - 32 mmol/L LAB CHEMISTRY METHOD 01/28/2025 11:56 AM [facility] Anion Gap 7 3 - 11 LAB CHEMISTRY METHOD 01/28/2025 11:56 AM [facility] Glucose 87 70 - 100 mg/dL LAB CHEMISTRY METHOD 01/28/2025 11:56 AM [facility] BUN 44(H) 5 - 25 mg/dL LAB CHEMISTRY METHOD 01/28/2025 11:56 AM [facility] Creatinine 1.39(H) 0.70 - 1.30 mg/dL LAB CHEMISTRY METHOD 01/28/2025 11:56 AM [facility] eGFR 56(L) >=60 mL/min/1. 73m2 LAB CHEMISTRY METHOD 01/28/2025 11:56 AM [facility] Comment:Calculation based on the Chronic Kidney Disease Epidemiology Collaboration (CKD-EPI) equation refit without adjustment for race. BUN/Creatinine Ratio 31.7 LAB CHEMISTRY METHOD 01/28/2025 11:56 AM [facility] Calcium 8.8 8.5 - 10.5 mg/dL LAB CHEMISTRY METHOD 01/28/2025 11:56 AM [facility] AST (SGOT) 39 10 - 42 unit/L LAB CHEMISTRY METHOD 01/28/2025 11:56 AM [facility] ALT (SGPT) 105(H) 10 - 60 unit/L LAB CHEMISTRY METHOD 01/28/2025 11:56 AM [facility] Alkaline Phosphatase 147(H) 42 - 121 unit/L LAB CHEMISTRY METHOD 01/28/2025 11:56 AM EDT [facility] Total Protein 5.5(L) 6.0 - 8.0 g/dL LAB CHEMISTRY METHOD 01/28/2025 11:56 AM [facility] Albumin 2.6(L) 3.2 - 5.0 g/dL LAB CHEMISTRY METHOD 01/28/2025 11:56 AM [facility] Total Bilirubin 0.9 0.0 - 1.4 mg/dL LAB CHEMISTRY METHOD 01/28/2025 11:56 AM T [facility] Blood Venous blood specimen / Unknown Venipuncture / Unknown 01/28/2025 8:36 AM EDT 01/28/2025 10:43 AM EDT Alexys Puentes MD LAB BLOOD ORDERABLES Final Result [facility] [address] [place] [address], * (ABNORMAL) Complete blood count (01/28/2025 8:36 AM EDT) WBC 5.1 4.8 - 10.8 K/[facility] LAB HEMETOLOGY METHOD 01/28/2025 12:04 PM [facility] RBC 3.50(L) 4.50 - 5.50 M/[facility] LAB HEMETOLOGY METHOD 01/28/2025 12:04 PM [facility] Hemoglobin 11.6(L) 13.5 - 17.5 g/dL LAB HEMETOLOGY METHOD 01/28/2025 12:04 PM [facility] Hematocrit 34.2(L) 42.0 - 54.0 % LAB HEMETOLOGY METHOD 01/28/2025 12:04 PM [facility] MCV 96.6 79.0 - 98.0 FL LAB HEMETOLOGY METHOD 01/28/2025 12:04 PM EDT [facility] MCH 32.8(H) 27.0 - 32.0 pcg LAB HEMETOLOGY METHOD 01/28/2025 12:04 PM EDT [facility] MCHC 33.9 32.0 - 37.0 g/dL LAB HEMETOLOGY METHOD 01/28/2025 12:04 PM EDT [facility] RDW 18.3(H) 11.0 - 15.0 % LAB HEMETOLOGY METHOD 01/28/2025 12:04 PM EDT [facility] Platelets 92(L) 130 - 400 K/mcL LAB HEMETOLOGY METHOD 01/28/2025 12:04 PM EDT [facility] Comment:reviewed by slide MPV 10.4 7.0 - 11.0 FL LAB HEMETOLOGY METHOD 01/28/2025 12:04 PM EDT [facility] NRBC 0.4 <1.0 % LAB HEMETOLOGY METHOD 01/28/2025 12:04 PM EDT [facility] NRBC Absolute 0.02 <0.10 K/mcL LAB HEMETOLOGY METHOD 01/28/2025 12:04 PM EDT [facility] Blood Venous blood specimen / Unknown Venipuncture / Unknown 01/28/2025 8:36 AM EDT 01/28/2025 10:43 AM EDT us Alexys Puentes MD LAB BLOOD ORDERABLES Final Result [facility] [address] [place] [address], documented in this encounter Visit Diagnoses Diagnosis Chronic kidney disease, unspecified Hyperlipidemia, unspecified Hypothyroidism, unspecified documented in this encounter Care Teams Product Expert Relationship Specialty Start Date End Date Morris Rizzo MD [address] [place] [address] PCP - General Internal Medicine 05/27/22 documented as of this encounter
[2025-08-15 06:08] LABS: MANUAL DIFF FLAG NO
[2025-08-15 06:15] LABS: Hematocrit 33.1 % (42.0-52.0); Hemoglobin 10.6 g/dl (14.0-18.0); Imm Gran Abs Auto 0.02 X10*3/uL (0.00-0.03); Imm Gran Pct Auto 0.4 % (0.0-0.4); Lymphocytes Absolute Auto 1.7 X10*3/uL (1.2-4.9); Mean Corpuscular HGB Conc 32.0 g/dl (31.0-36.0); Mean Corpuscular Hemoglobin 31.3 pg (27.0-33.0); Mean Corpuscular Volume 97.6 fL (80.0-98.0); NRBC Abs Auto 0.000 X10*3/uL (0.0-0.012); NRBC Pct Auto 0.0 /100WBC (0.0-0.2); Platelet Count 175 X10*3/uL (160-400); Red Blood Count 3.39 X10*6/uL (4.60-5.80); White Blood Count 5.0 X10*3/uL (4.8-10.8)
[2025-08-15 06:24] LABS: Alanine Aminotransferase 17 U/L (0-40); Albumin Level 3.8 g/dL (3.5-5.0); Alkaline Phosphatase 94 U/L (39-117); Anion Gap 11 (12-20); Aspartate Amino Transferase 27 U/L (5-37); Blood Urea Nitrogen 41 mg/dL (9-16); Calcium 9.5 mg/dL (8.4-10.2); Carbon Dioxide 24 mmol/L (22-29); Chloride 113 mmol/L (96-108); Estimated Glomerular Filt Rate 37; Magnesium 1.9 mg/dL (1.6-2.6); Potassium 4.4 mmol/L (3.3-5.1); Sodium 144 mmol/L (135-145); Total Protein 6.7 g/dL (6.5-8.0)
== END 2025-08-15 06:00 | disposition home or self-care (01) ==
LOC: HO.LAB 05:59
PROVIDERS: Visit Provider Internal Medicine
DX: C67.9 Malignant neoplasm of bladder, unspecified (principal)
CPT/HCPCS: 36415; 80053; 83735; 85025

== ENCOUNTER 2025-08-21 10:49 | Day surgery (SDC) | payer MEDICARE, OTHER, SELFPAY ==
--- OUTSIDE RECORDS SUMMARY | 2024-06-03 10:50 | XMS_ITS ---
Author Organization [facility] Address [address] [place] [address] Care Team Providers Care Metal Cutter Name Role Phone So MCALLISTER, Primary Care Provider Unavaila Jose Doty Unavailable [phone] Eamon MCALLISTER, Zamzam Lindsay Unavailable REASON FOR VISIT colon screening Encounters Encounter Location Date Provider Diagnosis [facility] [place] [address] [facility] [facility] [id number] 06/03/2024 Jose Arevalo Plan Of Treatment No Information Progress Notes * JOSE CUBADOB:1960 (64 yo M)Acc No.[id number]:06/03/2024 COLON WITH MAC Patient: JOSE LOPEZ Provider: Disha Arevalo MD :1960 A ge:63 Y S ex:Male Date:06/03/2024 Address:[address] [place] [address] [id number] Pcp:Morris Rizzo MD Subjective: * Chief Complaints: [...] MD Date: 0 06/03/2024 Generated for Sade cerda/Todd/eTransmitting on: 04:27 PM EDT
--- OUTSIDE RECORDS SUMMARY | 2025-08-15 16:28 | XMS_ITS | Encounter Summary ---
Author Organization [facility] Address [address] [place] [address] Care Team Providers Care Information Technology Analyst Name Role Phone Morris Rizzo Primary Care Provider [phone] Encounter Details Date Type Department Care Team (Late st Contact Info) Description 04/15/2024 Orders Only [facility] [address] [facility], 5th [place] [address] Shola Arroyo MD [address] [place] [address] Social History Tobacco Use Types Packs/Day Years [...] on filedocumented in this encounter Care Teams Information Technology Analyst Relationship Specialty Start Date End Date Morris Rizzo [address] [place] [address] [place] [address] PCP - General Internal Medicine 01/09/24 documented as of this encounter
--- OUTSIDE RECORDS SUMMARY | 2025-08-15 16:28 | XMS_ITS | Encounter Summary ---
Author Organization [facility] Address [address] [place] [address] Care Team Providers Care Fiber Glass Worker Name Role Phone Morris Rizzo MD Primary Care Provider [phone] Encounter Details Date Type Department Care Team (Late st Contact Info) Description 02/03/2025 Lab Requisition [facility] - Main Lab 299 [facility] [place] [address] Alexys Puentes MD [address] [place] [address] Chronic kidney disease, unspecified; Hyperlipidemia, unspecified; Thyrotoxicosis, [...] g/dL LAB CHE[facility]STR[facility] Albumin 2.6(L) 3.2 - 5.0 g/dL LAB CHEMISTRY METHOD 02/04/2025 12:03 PM EDT [facility] Total Bilirubin 0.8 0.0 - [...] ORDERABLES Final Result [facility] [address] [place], [place] [address] [phone] * (ABNORMAL) Basic metabolic panel (02/04/2025 8:05 [...] ORDERABLES Final Result [facility] [address] [place] [address], [place] [phone] * (ABNORMAL) Complete blood count (02/04/2025 8:05 AM EDT) WBC 4.8 4.8 - 10.8 K/mcL LAB HEMETOLOGY METHOD 02/04/2025 11:16 AM EDT [facility] RBC 3.10(L) 4.50 - 5.50 [...] LAB HEMETOLOGY METHOD 02/04/2025 11:16 AM EDT [facility] MPV 10.3 7.0 - 11.0 FL LAB HEMETOLOGY METHOD 02/04/2025 11:16 AM EDT [facility] NRBC 0.6 <1.0 % LAB HEMETOLOG METHOD 02/04/2025 11:16 AM EDT [facility] NRBC Absolute 0.03 <0.10 K/mcL LAB HEMETOLOGY METHOD 02/04/2025 11:16 AM EDT [facility] Blood Venous blood specimen / Unknown Venipuncture / Unknown 02/04/2025 8:05 AM EDT 02/04/2025 10:03 AM EDT us Alexys Puentes MD LAB BLOOD ORDERABLES Final Result [facility] [address] [place] [address], documented in this encounter Visit Diagnoses Diagnosis Chronic kidney disease, unspecified Hyperlipidemia, unspecified Thyrotoxicosis, unspecified without thyrotoxic crisis or storm documented in this encounter Care Teams Fiber Glass Worker Relationship Specialty Start Date End Date Morris Rizzo MD [address] [place] [address] PCP - General Internal Medicine 05/27/22 documented as of this encounter
--- OUTSIDE RECORDS SUMMARY | 2025-08-15 16:28 | XMS_ITS | Clinical Summary ---
Author Organization [facility] Address [address] [place] [address] Care Team Providers Care Steel Fitter Name Role Phone Morris Rizzo Primary Care Provider [phone] Allergies No known active allergies Medications atorvastatin [...] Cessation:Counseling Given: Not Answered Comments:On and off [id number] smoking, at most 1 PPD Alcohol Use [...] Completed 08/03/2023 Procedures * Due to [place] [employer] law, this organization might not be sharing negative HIV tests. Procedure Name Priority Date/Time Associated Diagnosis Comments AMB EXTERNAL CT CHEST, OUTSI DE RESULT 01/23/2024 from Last 3 Months or Most Recently Relevant to Health Maintenance Results * Due to [place] [employer] law, this organization might not be sharing negative HIV tests. * AMB EXTERNAL CT CHEST, OUTSIDE RESULT (01/23/2024) Anatomical Region Laterality Modality [facility] PROCEDURE S Final Result from Last 3 Months or Most Recently Relevant to Health Maintenance Insurance MEDICARE [facility] Advance Directives Documents on File Type Date Recorded Patient Junior Linux Administrator Expl anation Health Care Proxy 05/27/2024 7:26 AM Care Teams Steel Fitter Relationship Specialty Start Date End Date Morris Rizzo [address] [place] [address] [place] [address] PCP - General Internal Medicine 01/09/24
--- OUTSIDE RECORDS SUMMARY | 2025-08-15 16:28 | XMS_ITS | Encounter Summary ---
Author Organization [facility] Address [address] [place] [address] Care Team Providers Care Dehydration Unit Operator Name Role Phone Morris Rizzo MD Primary Care Provider [phone] Encounter Details Date Type Department Care Team (Late st Contact Info) Description 01/28/2025 Lab Requisition [facility] - Main Lab [address] [facility] [place] [address] Alexys Puentes MD [address] [place] [address] Chronic kidney disease, unspecified; Hyperlipidemia, unspecified; Hypothyroidism, [...] mmol/L LAB CHEMISTRY METHOD 01/28/2025 11:56 AM [facility] Potassium 4.0 3.5 - 5.5 mmol/L LAB CHEMISTRY METHOD 01/28/2025 11:56 AM [facility] Chloride 101 96 - 110 mmol/L LAB CHEMISTRY METHOD 01/28/2025 11:56 AM [facility] CO2 27 21 - 32 mmol/L LAB CHEMISTRY METHOD 01/28/2025 11:56 AM [facility] Anion Gap 7 3 - 11 LAB CHEMISTRY METHOD 01/28/2025 11:56 AM [facility] Glucose 87 70 - 100 mg/dL LAB CHEMISTRY METHOD 01/28/2025 11:56 AM [facility] BUN 44(H) 5 - 25 mg/dL LAB CHEMISTRY METHOD 01/28/2025 11:56 AM [facility] Creatinine 1.39(H) 0.70 - 1.30 mg/dL LAB CHEMISTRY METHOD 01/28/2025 11:56 AM [facility] eGFR 56(L) >=60 mL/min/1. 73m2 LAB CHEMISTRY METHOD 01/28/2025 11:56 AM [facility] Comment:Calculation based on the Chronic Kidney Disease Epidemiology Collaboration (CKD-EPI) equation refit without adjustment for race. BUN/Creatinine Ratio 31.7 LAB CHEMISTRY METHOD 01/28/2025 11:56 AM [facility] Calcium 8.8 8.5 - 10.5 mg/dL LAB CHEMISTRY METHOD 01/28/2025 11:56 AM [facility] AST (SGOT) 39 10 - 42 unit/L LAB CHEMISTRY METHOD 01/28/2025 11:56 AM [facility] ALT (SGPT) 105(H) 10 - 60 unit/L LAB CHEMISTRY METHOD 01/28/2025 11:56 AM [facility] Alkaline Phosphatase 147(H) 42 - 121 unit/L LAB CHEMISTRY METHOD 01/28/2025 11:56 AM EDT [facility] Total Protein 5.5(L) 6.0 - 8.0 g/dL LAB CHEMISTRY METHOD 01/28/2025 11:56 AM [facility] Albumin 2.6(L) 3.2 - 5.0 g/dL LAB CHEMISTRY METHOD 01/28/2025 11:56 AM [facility] Total Bilirubin 0.9 0.0 - 1.4 mg/dL LAB CHEMISTRY METHOD 01/28/2025 11:56 AM T [facility] Blood Venous blood specimen / Unknown Venipuncture / Unknown 01/28/2025 8:36 AM EDT 01/28/2025 10:43 AM EDT Alexys Puentes MD LAB BLOOD ORDERABLES Final Result [facility] [address] [place] [address], * (ABNORMAL) Complete blood count (01/28/2025 8:36 AM EDT) WBC 5.1 4.8 - 10.8 K/[facility] LAB HEMETOLOGY METHOD 01/28/2025 12:04 PM [facility] RBC 3.50(L) 4.50 - 5.50 M/[facility] LAB HEMETOLOGY METHOD 01/28/2025 12:04 PM [facility] Hemoglobin 11.6(L) 13.5 - 17.5 g/dL LAB HEMETOLOGY METHOD 01/28/2025 12:04 PM [facility] Hematocrit 34.2(L) 42.0 - 54.0 % LAB HEMETOLOGY METHOD 01/28/2025 12:04 PM [facility] MCV 96.6 79.0 - 98.0 FL LAB HEMETOLOGY METHOD 01/28/2025 12:04 PM EDT [facility] MCH 32.8(H) 27.0 - 32.0 pcg LAB HEMETOLOGY METHOD 01/28/2025 12:04 PM EDT [facility] MCHC 33.9 32.0 - 37.0 g/dL LAB HEMETOLOGY METHOD 01/28/2025 12:04 PM EDT [facility] RDW 18.3(H) 11.0 - 15.0 % LAB HEMETOLOGY METHOD 01/28/2025 12:04 PM EDT [facility] Platelets 92(L) 130 - 400 K/mcL LAB HEMETOLOGY METHOD 01/28/2025 12:04 PM EDT [facility] Comment:reviewed by slide MPV 10.4 7.0 - 11.0 FL LAB HEMETOLOGY METHOD 01/28/2025 12:04 PM EDT [facility] NRBC 0.4 <1.0 % LAB HEMETOLOGY METHOD 01/28/2025 12:04 PM EDT [facility] NRBC Absolute 0.02 <0.10 K/mcL LAB HEMETOLOGY METHOD 01/28/2025 12:04 PM EDT [facility] Blood Venous blood specimen / Unknown Venipuncture / Unknown 01/28/2025 8:36 AM EDT 01/28/2025 10:43 AM EDT us Alexys Puentes MD LAB BLOOD ORDERABLES Final Result [facility] [address] [place] [address], documented in this encounter Visit Diagnoses Diagnosis Chronic kidney disease, unspecified Hyperlipidemia, unspecified Hypothyroidism, unspecified documented in this encounter Care Teams Dehydration Unit Operator Relationship Specialty Start Date End Date Morris Rizzo MD [address] [place] [address] PCP - General Internal Medicine 05/27/22 documented as of this encounter
--- OUTSIDE RECORDS SUMMARY | 2025-08-15 16:28 | XMS_ITS ---
Author Organization [facility] Address [address] [place] [address] Care Team Providers Care Coal Washer Name Role Phone Morris Rizzo Primary Care Provider [phone] Active Problems Problem Noted Date Diagnosed Date Hyperkalemia 05/30/2024 Malignant neoplasm of overlapping sites of bladd er 03/04/2024 Other hydronephrosis 03/04/2024 Current Treatment and Therapy Plans No current plan information found. Past Treatment and Therapy Plans No past plan information found. Lifetime Dose Tracking * Chemical Lifetime Dose Automatic Entry Manual Entr y TotalDLP 1,042 mGy 1,042 mGy 0 mGy [id number] 13.5 mSv 13.5 mSv 0 mSv CTDIvol Max 11.8 mGy 11.8 mGy 0 mGy CTDIvol Min 7.3 mGy 7.3 mGy 0 mGy
--- OUTSIDE RECORDS SUMMARY | 2025-08-15 16:28 | XMS_ITS | Encounter Summary ---
Author Organization [facility] Address [address] [place] [address] Care Team Providers Care Tubing Assembler Name Role Phone Morris Rizzo MD Primary Care Provider [phone] Encounter Details Date Type Department Care Team (Late st Contact Info) Description 02/17/2025 Lab Requisition [facility] - Main Lab 299 [facility] [place] [address] Alexys Puentes MD [address] [place] [address] Chronic kidney disease, unspecified; Hyperlipidemia, unspecified; Thyrotoxicosis, [...] mmol/L LAB CHEMISTRY METHOD 02/18/2025 11:25 AM [facility] Potassium 3.7 3.5 - 5.5 mmol/L LAB CHEMISTRY METHOD 02/18/2025 11:25 AM [facility] Chloride 107 96 - 110 mmol/L LAB CHEMISTRY METHOD 02/18/2025 11:25 AM [facility] CO2 26 21 - 32 mmol/L LAB CHEMISTRY METHOD 02/18/2025 11:25 AM [facility] Anion Gap 5 3 - 11 LAB CHEMISTRY METHOD 02/18/2025 11:25 AM [facility] Glucose 85 70 - 100 mg/dL LAB CHEMISTRY METHOD 02/18/2025 11:25 AM [facility] BUN 29(H) 5 - 25 mg/dL LAB CHEMISTRY METHOD 02/18/2025 11:25 AM [facility] Creatinine 1.67(H) 0.70 - 1.30 mg/dL LAB CHEMISTRY METHOD 02/18/2025 11:25 AM [facility] eGFR 45(L) >=60 mL/min/1. 73m2 LAB CHEMISTRY METHOD 02/18/2025 11:25 AM [facility] Comment:Calculation based on the Chronic Kidney Disease Epidemiology Collaboration (CKD-EPI) equation refit without adjustment for race. BUN/Creatinine Ratio 17.4 LAB CHEMISTRY METHOD 02/18/2025 11:25 AM [facility] Calcium 8.7 8.5 - 10.5 mg/dL LAB CHEMISTRY METHOD 02/18/2025 11:25 AM [facility] Blood Venous blood specimen / Unknown Venipuncture / Unknown 02/18/2025 6:52 AM EDT 02/18/2025 10:38 AM EDT Alexys Puentes MD LAB BLOOD ORDERABLES Final Result [facility] [address] [place] [address], * (ABNORMAL) Complete blood count (02/18/2025 6:52 AM EDT) WBC 4.2(L) 4.8 - 10.8 K/mcL LAB HEMETOLOGY METHOD 02/18/2025 10:58 AM EDT [facility] RBC 2.80(L) 4.50 - 5.50 M/mcL LAB HEMETOLOGY METHOD 02/18/2025 10:58 AM EDT [facility] Hemoglobin 9.4(L) 13.5 - 17.5 g/dL LAB HEMETOLOGY METHOD 02/18/2025 10:58 AM EDT [facility] Hematocrit 29.1(L) 42.0 - 54.0 % LAB HEMETOLOGY METHOD 02/18/2025 10:58 AM EDT [facility] MCV 103.9(H) 79.0 - 98.0 FL LAB HEMETOLOGY METHOD 02/18/2025 10:58 AM EDT [facility] MCH 33.6(H) 27.0 - 32.0 pcg LAB HEMETOLOGY METHOD 02/18/2025 10:58 AM EDT [facility] MCHC 32.3 32.0 - 37.0 g/dL LAB HEMETOLOGY METHOD 02/18/2025 10:58 AM EDT [facility] RDW 20.8(H) 11.0 - 15.0 % LAB HEMETOLOGY METHOD 02/18/2025 10:58 AM EDT [facility] Platelets 206 130 - 400 K/mcL LAB HEMETOLOGY METHOD 02/18/2025 10:58 AM EDT [facility] MPV 9.7 7.0 - 11.0 FL LAB HEMETOLOGY METHOD 02/18/2025 10:58 AM EDT [facility] NRBC 1.0(H) <1.0 % LAB HEMETOLOGY METHOD 02/18/2025 10:58 AM EDT [facility] NRBC Absolute 0.04 <0.10 K/mcL [facility] 02/18/2025 10:58 AM EDT [facility] Blood Venous blood specimen / Unknown Venipuncture / Unknown 02/18/2025 6:52 AM EDT 02/18/2025 10:37 AM EDT us Alexys Puentes MD LAB BLOOD ORDERABLES Final Result [facility] [address] [place] [address], documented in this encounter Visit Diagnoses Diagnosis Chronic kidney disease, unspecified Hyperlipidemia, unspecified Thyrotoxicosis, unspecified without thyrotoxic crisis or storm documented in this encounter Care Teams Tubing Assembler Relationship Specialty Start Date End Date Morris Rizzo MD [address] [place] [address] PCP - General Internal Medicine 05/27/22 documented as of this encounter
--- OUTSIDE RECORDS SUMMARY | 2025-08-15 16:28 | XMS_ITS | Patient Health Record ---
Author Organization [facility] Address [address] [place] [address] Care Team Providers Care Associate Publisher Name Role Phone So MCALLISTER, Primary Care Provider Unavaila yaquelin Arevalo Jose Unavailable [phone] Eamon MCALLISTER, Zamzam Unavailable Unavailable Reason For [...] Status Risk Notes Problem Colon cancer screening (296781194) Colon cancer screening (Z12.11) Active confirmed Problem Epigastric pain (92383546) Epigastric abdominal pain (R10.13) Active confirmed Problem Screening for malignant neoplasm of colon (187573435) Encounter for screening for malignant neoplasm of colon (Z12.11) Active confirmed Problem Preprocedural examination (128893264665768) Preprocedural examination (Z01.818) Active confirmed Plan Of Treatment Future Test Test Name Order Date UPPER GI ENDOSCOPY 08/23/2017 COLONOSCOPY 04/10/2019 COLONOSCOPY 04/26/2024 Insurance Providers Payer Name Payer Address Payer Phone Subscriber Number Group Number Insured Name Patient Relationship to Insured Coverage Start Date Coverage End Date MEDICARE OF [place] [address] [place] [address] [id number] JOSE CUBA Self - patient is the insured [employer] [address] [place] [address] [id number] JOSE CUBA Self - patient is the insured Medical (General) History Medical History History ICD Code Denies NH,DM,CVA,Lung disease,renal dise ase Hyperlipidemia Screening colonoscopy in Mar with Dr. Johansen revealed only hyperplastic polyps. EGD in 08/2017-small HH, normal duodenal and gastric biopsies Surgical History Surgery Date(Month/Year) Lap cholecystectomy--acalculous cholecys titis-Dr. Knutson 05/2017 Finger- infection drained 1969
--- OUTSIDE RECORDS SUMMARY | 2025-08-15 16:28 | XMS_ITS | Clinical Summary ---
Author Organization [facility] Address [address] [place] [address] Phone Care Team Providers Care Stage Technician Name Role Phone Morris Rizzo MD Primary Care Provider [phone] Encounters Date Type Department Care Team Description 06/19/2025 Telephone Lung Screening Program - [place] [address] [facility] [address] [place] [phone] Edelmira Morales MA from Last 3 Months [...] EDT Narrative 08/19/2024 6:31 AM EDT [facility] Diagnostic Imaging Department [address] [place] [address] Patient: JOSE LAMBERT/Age/Sex: 1960 - 63 - M Unit#: [id number] Location/Status: SPDICATLS/REG CLI Mnemonic/Ordering Site: [facility] Ordering Physician: SUYAPA WEST MD CT Lung [...] Note Alpa Lorenzana MD - 08/24/2024 [facility] Diagnostic Imaging Department [address] [place] [id number] Patient: JOSE LAMBERT Chandler Shay./Age/Sex: 1960 - 63 - M Unit#: [id number] Location/Status: [facility] CLI Mnemonic/Ordering Site: [facility] Ordering Physician: SUYAPA WEST MD CT Lung [...] Recently Relevant to Health Maintenance Insurance MEDICARE [facility] Care Teams Stage Technician Relationship Specialty Start Date End Date Morris Rizzo MD [address] [place] [address] PCP - General Internal Medicine 05/27/22
--- OUTSIDE RECORDS SUMMARY | 2025-08-15 16:28 | XMS_ITS | Clinical Summary ---
Author Organization [facility] Address [address] [facility] [address] [place], [place] [id number] Phone Care Team Providers Care Building Associate Name Role Phone Unavailable Primary Care Provider [...] [place] [id number] MEDICARE PART A & B MEDICARE PART A & B MEDICARE PART A & B MEDICARE PART A & B MEDICARE PART A & B Additional Source Comments The information contained in this document represents components of the legal health record. It is not the complete legal health record.[facility]
--- OUTSIDE RECORDS SUMMARY | 2025-08-15 16:28 | XMS_ITS | Encounter Summary ---
Author Organization [facility] Address [address] [place] [address] Care Team Providers Care Chinchilla Farmer Name Role Phone Morris Rizzo MD Primary Care Provider [phone] Encounter Details Date Type Department Care Team (Late st Contact Info) Description 02/10/2025 Lab Requisition [facility] - Main Lab 299 [facility] [place] [address] Alexys Puentes MD [address] [place] [address] Chronic kidney disease, unspecified; Hyperlipidemia, unspecified; Thyrotoxicosis, [...] free t3 (02/11/2025 7:58 AM EDT) Pathologist [facility] TSH 2.86 0.40 - 4.00 mcIU/mL LAB CHEMISTRY METHOD 02/11/2025 1:02 PM EDT [facility] Blood Venous blood specimen / Unknown Venipuncture / Unknown 02/11/2025 7:58 AM EDT 02/11/2025 9:08 AM EDT Alexys Puentes MD LAB BLOOD ORDERABLES Final Result [facility] [address] [place] [address], * (ABNORMAL) Basic metabolic panel (02/11/2025 7:58 AM EDT) [facility] Sodium 143 133 - 145 mmol/L LAB CHEMISTRY METHOD 02/11/2025 11:11 AM [facility] Potassium 4.4 3.5 - 5.5 mmol/L LAB CHEMISTRY METHOD 02/11/2025 11:11 AM [facility] Chloride 109 96 - 110 mmol/L LAB CHEMISTRY METHOD 02/11/2025 11:11 AM [facility] CO2 27 21 - 32 mmol/L LAB CHEMISTRY METHOD 02/11/2025 11:11 AM [facility] Anion Gap 7 3 - 11 LAB CHEMISTRY METHOD 02/11/2025 11:11 AM [facility] Glucose 89 70 - 100 mg/dL LAB CHEMISTRY METHOD 02/11/2025 11:11 AM [facility] BUN 31(H) 5 - 25 mg/dL LAB CHEMISTRY METHOD 02/11/2025 11:11 AM EDT [facility] Creatinine 1.67(H) 0.70 - 1.30 mg/dL LAB CHEMISTRY METHOD 02/11/2025 11:11 AM EDT [facility] eGFR 45(L) >=60 mL/min/1. 73m2 LAB CHEMISTRY METHOD 02/11/2025 11:11 AM EDT [facility] Comment:Calculation based on the Chronic Kidney Disease Epidemiology Collaboration (CKD-EPI) equation refit without adjustment for race. BUN/Creatinine Ratio 18.6 LAB CHEMISTRY METHOD 02/11/2025 11:11 AM EDT [facility] Calcium 8.7 8.5 - 10.5 mg/dL LAB CHEMISTRY METHOD 02/11/2025 11:11 AM [facility] Blood Venous blood specimen / Unknown Venipuncture / Unknown 02/11/2025 7:58 AM EDT 02/11/2025 9:08 AM EDT us Alexys Puentes MD LAB BLOOD ORDERABLES Final Result [facility] [address] [place] [address], * (ABNORMAL) Complete blood count (02/11/2025 7:58 AM EDT) WBC 5.0 4.8 - 10.8 K/mcL LAB HEMETOLOGY METHOD 02/11/2025 10:45 AM EDT [facility] RBC 2.90(L) 4.50 - 5.50 M/mcL LAB HEMETOLOGY METHOD 02/11/2025 10:45 AM EDT [facility] Hemoglobin 9.4(L) 13.5 - 17.5 g/dL LAB HEMETOLOGY METHOD 02/11/2025 10:45 AM EDT [facility] Hematocrit 29.0(L) 42.0 - 54.0 % LAB HEMETOLOGY METHOD 02/11/2025 10:45 AM EDT [facility] MCV 101.4(H) 79.0 - 98.0 FL LAB HEMETOLOGY METHOD 02/11/2025 10:45 AM EDT [facility] MCH 32.9(H) 27.0 - 32.0 pcg LAB HEMETOLOGY METHOD 02/11/2025 10:45 AM EDT [facility] MCHC 32.4 32.0 - 37.0 g/dL LAB HEMETOLOGY METHOD 02/11/2025 10:45 AM EDT [facility] RDW 20.2(H) 11.0 - 15.0 % LAB HEMETOLOGY METHOD 02/11/2025 10:45 AM T [facility] Platelets 203 130 - 400 K/mcL LAB HEMETOLOGY METHOD 02/11/2025 10:45 AM EDT [facility] MPV 9.8 7.0 - 11.0 FL LAB HEMETOLOGY METHOD 02/11/2025 10:45 AM EDT [facility] NRBC 1.0(H) <1.0 % LAB HEMETOLOGY METHOD 02/11/2025 10:45 AM T [facility] NRBC Absolute 0.05 <0.10 K/mcL LAB HEMETOLOGY METHOD 02/11/2025 10:45 AM EDT [facility] Blood Venous blood specimen / Unknown Venipuncture / Unknown 02/11/2025 7:58 AM EDT 02/11/2025 9:08 AM EDT us Alexys Puentes MD LAB BLOOD ORDERABLES Final Result [facility] [address] [place] [address], documented in this encounter Visit Diagnoses Diagnosis Chronic kidney disease, unspecified Hyperlipidemia, unspecified Thyrotoxicosis, unspecified without thyrotoxic crisis or storm Disorder of thyroid, unspecified documented in this encounter Care Teams Chinchilla Farmer Relationship Specialty Start Date End Date Morris Rizzo MD [address] [place] [address] Drive [address] [place] [address] PCP - General Internal Medicine 05/27/22 documented as of this encounter
[2025-08-20 15:47] VITALS: BMI 28.9
[2025-08-21] VITALS (7 sets, daily range): BP systolic 116–130; BP diastolic 62–85; PULSE 74–80; RESP 18–22; TEMP 36.1–36.3; O2SAT 96–100; BMI 28.9
--- NOTE | ~2025-08-21 | IR_ITS ---
FLUOROSCOPIC RIGHT NEPHROSTOMY CHANGE History: Patient has a right nephrostomy tube due to right ureteral obstruction due to bladder cancer. Procedure: Patient was informed and consented to the procedure. The patient's back was prepped and draped in routine sterile fashion. An antegrade nephrostogram was performed which demonstrated contrast flowing into the most distal portion of the ureter and did not empty into the bladder. The catheter was cut, and a stiff guidewire was advanced through the tube and into the renal pelvis. The catheter was removed over the wire. A new 10 Djib[place]ian locking pigtail catheter was advanced over the wire. The wire was removed. 5 mL of contrast was injected to assure proper positioning. 1% lidocaine was used as a anesthetic around the insertion site. The pigtail catheter was noted to be within the renal pelvis. A Surgipro suture was used to secure the catheter to the skin. A sterile dressing was applied. A drainage bag was attached and urine was seen flowing freely by gravity. The patient tolerated the procedure well with no immediate complications. Total fluoroscopy time: 0.6 minutes. IR/IR nephrostomy tube change Impression: Right nephrostomy tube exchange PLAN: Patient should return in 3 months for routine exchange. The procedure was performed by Jacoby Grace NP and supervised by Josef Mckoy MD. Electronically signed by: Josef Mckoy MD 08/27/2025 07:34 AM [facility] Workstation: [id number]
[2025-08-21 12:29] LABS: INTERNATIONAL NORM RATIO 1.1 (0.9-1.1); Prothrombin Time 12.2 SEC (10.9-12.4)
== END 2025-08-21 14:42 | disposition home or self-care (01) ==
PROVIDERS: Radiology Diagnostic Radiology; Visit Provider Urology
DX: C67.6 Malignant neoplasm of ureteric orifice (principal); N13.1 Hydronephrosis with ureteral stricture, not elsewhere classified; Z95.828 Presence of other vascular implants and grafts; E27.40 Unspecified adrenocortical insufficiency; E78.00 Pure hypercholesterolemia, unspecified; R03.0 Elevated blood-pressure reading, without diagnosis of hypertension; I26.99 Other pulmonary embolism without acute cor pulmonale; Z79.01 Long term (current) use of anticoagulants; Z79.899 Other long term (current) drug therapy; Z98.890 Other specified postprocedural states; Z87.891 Personal history of nicotine dependence
CPT/HCPCS: 36415; 50435; 85610; C1769; J2003; J2250; J3010; Q9967

== ENCOUNTER → 2025-08-21 12:50 | Outpatient (BNV) | payer MEDICARE, OTHER, SELFPAY | DX: C67.9 Malignant neoplasm of bladder, unspecified (principal); Z93.6 Other artificial openings of urinary tract status; N13.30 Unspecified hydronephrosis | CPT/HCPCS: 50435 ==

== ENCOUNTER 2025-08-22 05:59 | Outpatient (REF) | payer MEDICARE, OTHER, SELFPAY ==
--- OUTSIDE RECORDS SUMMARY | 2024-06-03 10:50 | XMS_ITS ---
Author Organization [facility] Address [address] [place] [address] Care Team Providers Care Remote Sensing Engineer Name Role Phone So MCALLISTER, Primary Care Provider Unavaila Jose Doty Unavailable [phone] Eamon MCALLISTER, Zamzam Lindsay Unavailable REASON FOR VISIT colon screening Encounters Encounter Location Date Provider Diagnosis [facility] [place] [address] [facility] [phone] 06/03/2024 Jose Arevalo Plan Of Treatment No Information Progress Notes * JOSE CUBADOB:1960 (64 yo M)Acc No.[id number]:06/03/2024 COLON WITH MAC Patient: JOSE LOPEZ Provider: Disha Arevalo MD :1960 A ge:63 Y S ex:Male Date:06/03/2024 Address:[address] [place] [address] [id number] Pcp:Morris Rizzo MD Subjective: * Chief Complaints: [...] MD Date: 0 06/03/2024 Generated for Sade cerda/Todd/eThaileesmitting on: 06:02 AM EDT
--- OUTSIDE RECORDS SUMMARY | 2025-08-22 06:02 | XMS_ITS | Encounter Summary ---
Author Organization [facility] Address [address] [place] [address] Care Team Providers Care Assembler Wire Group Name Role Phone Morris Rizzo MD Primary Care Provider [phone] Encounter Details Date Type Department Care Team (Late st Contact Info) Description 01/28/2025 Lab Requisition [facility] - Main Lab 299 [facility] [place] [address] Alexys Puentes MD [address] [place] [address] Chronic kidney disease, unspecified; Hyperlipidemia, unspecified; Hypothyroidism, [...] mmol/L LAB CHEMISTRY METHOD 01/28/2025 11:56 AM [facility] Potassium 4.0 3.5 - 5.5 mmol/L LAB CHEMISTRY METHOD 01/28/2025 11:56 AM [facility] Chloride 101 96 - 110 mmol/L LAB CHEMISTRY METHOD 01/28/2025 11:56 AM [facility] CO2 27 21 - 32 mmol/L LAB CHEMISTRY METHOD 01/28/2025 11:56 AM [facility] Anion Gap 7 3 - 11 LAB CHEMISTRY METHOD 01/28/2025 11:56 AM [facility] Glucose 87 70 - 100 mg/dL LAB CHEMISTRY METHOD 01/28/2025 11:56 AM [facility] BUN 44(H) 5 - 25 mg/dL LAB CHEMISTRY METHOD 01/28/2025 11:56 AM [facility] Creatinine 1.39(H) 0.70 - 1.30 mg/dL LAB CHEMISTRY METHOD 01/28/2025 11:56 AM [facility] eGFR 56(L) >=60 mL/min/1. 73m2 LAB CHEMISTRY METHOD 01/28/2025 11:56 AM [facility] Comment:Calculation based on the Chronic Kidney Disease Epidemiology Collaboration (CKD-EPI) equation refit without adjustment for race. BUN/Creatinine Ratio 31.7 LAB CHEMISTRY METHOD 01/28/2025 11:56 AM [facility] Calcium 8.8 8.5 - 10.5 mg/dL LAB CHEMISTRY METHOD 01/28/2025 11:56 AM [facility] AST (SGOT) 39 10 - 42 unit/L LAB CHEMISTRY METHOD 01/28/2025 11:56 AM [facility] ALT (SGPT) 105(H) 10 - 60 unit/L LAB CHEMISTRY METHOD 01/28/2025 11:56 AM [facility] Alkaline Phosphatase 147(H) 42 - 121 unit/L LAB CHEMISTRY METHOD 01/28/2025 11:56 AM EDT [facility] Total Protein 5.5(L) 6.0 - 8.0 g/dL LAB CHEMISTRY METHOD 01/28/2025 11:56 AM [facility] Albumin 2.6(L) 3.2 - 5.0 g/dL LAB CHEMISTRY METHOD 01/28/2025 11:56 AM [facility] Total Bilirubin 0.9 0.0 - 1.4 mg/dL LAB CHEMISTRY METHOD 01/28/2025 11:56 AM T [facility] Blood Venous blood specimen / Unknown Venipuncture / Unknown 01/28/2025 8:36 AM EDT 01/28/2025 10:43 AM EDT Alexys Puentes MD LAB BLOOD ORDERABLES Final Result [facility] [address] [place] [address], * (ABNORMAL) Complete blood count (01/28/2025 8:36 AM EDT) WBC 5.1 4.8 - 10.8 K/[facility] LAB HEMETOLOGY METHOD 01/28/2025 12:04 PM [facility] RBC 3.50(L) 4.50 - 5.50 M/[facility] LAB HEMETOLOGY METHOD 01/28/2025 12:04 PM [facility] Hemoglobin 11.6(L) 13.5 - 17.5 g/dL LAB HEMETOLOGY METHOD 01/28/2025 12:04 PM [facility] Hematocrit 34.2(L) 42.0 - 54.0 % LAB HEMETOLOGY METHOD 01/28/2025 12:04 PM [facility] MCV 96.6 79.0 - 98.0 FL LAB HEMETOLOGY METHOD 01/28/2025 12:04 PM EDT [facility] MCH 32.8(H) 27.0 - 32.0 pcg LAB HEMETOLOGY METHOD 01/28/2025 12:04 PM EDT [facility] MCHC 33.9 32.0 - 37.0 g/dL LAB HEMETOLOGY METHOD 01/28/2025 12:04 PM EDT [facility] RDW 18.3(H) 11.0 - 15.0 % LAB HEMETOLOGY METHOD 01/28/2025 12:04 PM EDT [facility] Platelets 92(L) 130 - 400 K/mcL LAB HEMETOLOGY METHOD 01/28/2025 12:04 PM EDT [facility] Comment:reviewed by slide MPV 10.4 7.0 - 11.0 FL LAB HEMETOLOGY METHOD 01/28/2025 12:04 PM EDT [facility] NRBC 0.4 <1.0 % LAB HEMETOLOGY METHOD 01/28/2025 12:04 PM EDT [facility] NRBC Absolute 0.02 <0.10 K/mcL LAB HEMETOLOGY METHOD 01/28/2025 12:04 PM EDT [facility] Blood Venous blood specimen / Unknown Venipuncture / Unknown 01/28/2025 8:36 AM EDT 01/28/2025 10:43 AM EDT us Alexys Puentes MD LAB BLOOD ORDERABLES Final Result [facility] [address] [place] [address], documented in this encounter Visit Diagnoses Diagnosis Chronic kidney disease, unspecified Hyperlipidemia, unspecified Hypothyroidism, unspecified documented in this encounter Care Teams Assembler Wire Group Relationship Specialty Start Date End Date Morris Rizzo MD [address] [place] [address] PCP - General Internal Medicine 05/27/22 documented as of this encounter
--- OUTSIDE RECORDS SUMMARY | 2025-08-22 06:02 | XMS_ITS | Encounter Summary ---
Author Organization [facility] Address [address] [place] [address] Care Team Providers Care Manager Dish Name Role Phone Morris Rizzo MD Primary Care Provider [phone] Encounter Details Date Type Department Care Team (Late st Contact Info) Description 02/10/[address] [facility] - Main Lab 299 [facility] [place] [address] Alexys Puentes MD [address] [place] [address] Chronic kidney disease, unspecified; Hyperlipidemia, unspecified; Thyrotoxicosis, [...] free t3 (02/11/2025 7:58 AM EDT) Pathologist [facility] TSH 2.86 0.40 - 4.00 mcIU/mL LAB CHEMISTRY METHOD 02/11/2025 1:02 PM EDT [facility] Blood Venous blood specimen / Unknown Venipuncture / Unknown 02/11/2025 7:58 AM EDT 02/11/2025 9:08 AM EDT Alexys Puentes MD LAB BLOOD ORDERABLES Final Result [facility] [address] [place] [address], * (ABNORMAL) Basic metabolic panel (02/11/2025 7:58 AM EDT) [facility] Sodium 143 133 - 145 mmol/L LAB [...] LAB CHEMISTRY METHOD 02/11/2025 11:11 AM EDT [facility] Creatinine 1.67(H) 0.70 - 1.30 mg/dL LAB CHEMISTRY METHOD 02/11/2025 11:11 AM EDT [facility] eGFR 45(L) >=60 mL/min/1. 73m2 LAB CHEMISTRY METHOD 02/11/2025 11:11 AM EDT [facility] Comment:Calculation based on the Chronic Kidney Disease Epidemiology Collaboration (CKD-EPI) equation refit without adjustment for race. BUN/Creatinine Ratio 18.6 LAB CHEMISTRY METHOD 02/11/2025 11:11 AM EDT [facility] Calcium 8.7 8.5 - 10.5 mg/dL LAB CHEMISTRY METHOD 02/11/2025 11:11 AM [facility] Blood Venous blood specimen / Unknown Venipuncture / Unknown 02/11/2025 7:58 AM EDT 02/11/2025 9:08 AM EDT us Alexys Puentes MD LAB BLOOD ORDERABLES Final Result [facility] [address] [place] [address], * (ABNORMAL) Complete blood count (02/11/2025 7:58 AM EDT) WBC 5.0 4.8 - 10.8 K/mcL LAB HEMETOLOGY METHOD 02/11/2025 10:45 AM EDT [facility] RBC 2.90(L) 4.50 - 5.50 M/mcL LAB HEMETOLOGY METHOD 02/11/2025 10:45 AM EDT [facility] Hemoglobin 9.4(L) 13.5 - 17.5 g/dL LAB HEMETOLOGY METHOD 02/11/2025 10:45 AM EDT [facility] Hematocrit 29.0(L) 42.0 - 54.0 % LAB HEMETOLOGY METHOD 02/11/2025 10:45 AM EDT [facility] MCV 101.4(H) 79.0 - 98.0 FL LAB HEMETOLOGY METHOD 02/11/2025 10:45 AM EDT [facility] MCH 32.9(H) 27.0 - 32.0 pcg LAB HEMETOLOGY METHOD 02/11/2025 10:45 AM EDT [facility] MCHC 32.4 32.0 - 37.0 g/dL LAB HEMETOLOGY METHOD 02/11/2025 10:45 AM EDT [facility] RDW 20.2(H) 11.0 - 15.0 % LAB HEMETOLOGY METHOD 02/11/2025 10:45 AM T [facility] Platelets 203 130 - 400 K/mcL LAB HEMETOLOGY METHOD 02/11/2025 10:45 AM EDT [facility] MPV 9.8 7.0 - 11.0 FL LAB HEMETOLOGY METHOD 02/11/2025 10:45 AM EDT [facility] NRBC 1.0(H) <1.0 % LAB HEMETOLOGY METHOD 02/11/2025 10:45 AM T [facility] NRBC Absolute 0.05 <0.10 K/mcL LAB HEMETOLOGY METHOD 02/11/2025 10:45 AM EDT [facility] Blood Venous blood specimen / Unknown Venipuncture / Unknown 02/11/2025 7:58 AM EDT 02/11/2025 9:08 AM EDT us Alexys Puentes MD LAB BLOOD ORDERABLES Final Result [facility] [address] [place] [address], documented in this encounter Visit Diagnoses Diagnosis Chronic kidney disease, unspecified Hyperlipidemia, unspecified Thyrotoxicosis, unspecified without thyrotoxic crisis or storm Disorder of thyroid, unspecified documented in this encounter Care Teams Manager Dish Relationship Specialty Start Date End Date Morris Rizzo MD [address] [place] [address] Drive [address] [place] [address] PCP - General Internal Medicine 05/27/22 documented as of this encounter
--- OUTSIDE RECORDS SUMMARY | 2025-08-22 06:02 | XMS_ITS | Clinical Summary ---
Author Organization [facility] Address [address] [facility] [address] [place], [place] [id number] Phone Care Team Providers Care Loom Operator Apprentice Name Role Phone Unavailable Primary Care Provider [...] [place] [id number] MEDICARE PART A & B MEDICARE PART A & B MEDICARE PART A & B MEDICARE PART A & B MEDICARE PART A & B Additional Source Comments The information contained in this document represents components of the legal health record. It is not the complete legal health record.[facility]
--- OUTSIDE RECORDS SUMMARY | 2025-08-22 06:02 | XMS_ITS | Encounter Summary ---
Author Organization [facility] Address [address] [place] [address] Care Team Providers Care Strapper Operator Name Role Phone Morris Rizzo MD Primary Care Provider [phone] Encounter Details Date Type Department Care Team (Late st Contact Info) Description 02/03/2025 Lab Requisition [facility] - Main Lab 299 [facility] [place] [address] Alexys Puentes MD [address] [place] [address] Chronic kidney disease, unspecified; Hyperlipidemia, unspecified; Thyrotoxicosis, [...] LAB CHEMISTRY METHOD 02/04/2025 12:03 PM EDT [facility] Total Bilirubin 0.8 0.0 - [...] ORDERABLES Final Result [facility] [address] [place], [place] [address] [phone] * (ABNORMAL) Basic metabolic panel (02/04/2025 8:05 [...] ORDERABLES Final Result [facility] [address] [place] [address], [place] [phone] * (ABNORMAL) Complete blood count (02/04/2025 8:05 AM EDT) WBC 4.8 4.8 - 10.8 K/mcL LAB HEMETOLOGY METHOD 02/04/2025 11:16 AM EDT [facility] RBC 3.10(L) 4.50 - 5.50 [...] LAB HEMETOLOGY METHOD 02/04/2025 11:16 AM EDT [facility] MPV 10.3 7.0 - 11.0 FL LAB HEMETOLOGY METHOD 02/04/2025 11:16 AM EDT [facility] NRBC 0.6 <1.0 % LAB HEMETOLOG METHOD 02/04/2025 11:16 AM EDT [facility] NRBC Absolute 0.03 <0.10 K/mcL LAB HEMETOLOGY METHOD 02/04/2025 11:16 AM EDT [facility] Blood Venous blood specimen / Unknown Venipuncture / Unknown 02/04/2025 8:05 AM EDT 02/04/2025 10:03 AM EDT us Alexys Puentes MD LAB BLOOD ORDERABLES Final Result [facility] [address] [place] [address], documented in this encounter Visit Diagnoses Diagnosis Chronic kidney disease, unspecified Hyperlipidemia, unspecified Thyrotoxicosis, unspecified without thyrotoxic crisis or storm documented in this encounter Care Teams Strapper Operator Relationship Specialty Start Date End Date Morris Rizzo MD [address] [place] [address] PCP - General Internal Medicine 05/27/22 documented as of this encounter
--- OUTSIDE RECORDS SUMMARY | 2025-08-22 06:02 | XMS_ITS | Patient Health Record ---
Author Organization [facility] Address [address] [place] [address] Care Team Providers Care Family Welfare Social Work Professor Name Role Phone So MCALLISTER, Primary Care Provider Unavaila yaquelin Arevalo Jose Unavailable [phone] Eamon MCALLISTER, Zamzam Unavailable Unavailable Reason For [...] Status Risk Notes Problem Colon cancer screening (920484519) Colon cancer screening (Z12.11) Active confirmed Problem Epigastric pain (62960437) Epigastric abdominal pain (R10.13) Active confirmed Problem Screening for malignant neoplasm of colon (183669484) Encounter for screening for malignant neoplasm of colon (Z12.11) Active confirmed Problem Preprocedural examination (571968667787630) Preprocedural examination (Z01.818) Active confirmed Plan Of Treatment Future Test Test Name Order Date UPPER GI ENDOSCOPY 08/23/2017 COLONOSCOPY 04/10/2019 COLONOSCOPY 04/26/2024 Insurance Providers Payer Name Payer Address Payer Phone Subscriber Number Group Number Insured Name Patient Relationship to Insured Coverage Start Date Coverage End Date MEDICARE OF [place] [address] [place] [address] [id number] JOSE CUBA Self - patient is the insured [employer] [address] [place] [address] [id number] JOSE CUBA Self - patient is the insured Medical (General) History Medical History History ICD Code Denies HI,DM,CVA,Lung disease,renal dise ase Hyperlipidemia Screening colonoscopy in Mar with Dr. Johansen revealed only hyperplastic polyps. EGD in 08/2017-small HH, normal duodenal and gastric biopsies Surgical History Surgery Date(Month/Year) Lap cholecystectomy--acalculous cholecys titis-Dr. Knutson 05/2017 Finger- infection drained 1969
--- OUTSIDE RECORDS SUMMARY | 2025-08-22 06:02 | XMS_ITS | Encounter Summary ---
Author Organization [facility] Address [address] [place] [address] Care Team Providers Care High Lift Driver Name Role Phone Morris Rizzo MD Primary Care Provider Encounter Details Date Type Department Care Team (Late st Contact Info) Description 02/17/2025 Lab Requisition [facility] - Main Lab 299 [facility] [place] [address] Alexys Puentes MD [address] [place] [address] Chronic kidney disease, unspecified; Hyperlipidemia, unspecified; Thyrotoxicosis, [...] mmol/L LAB CHEMISTRY METHOD 02/18/2025 11:25 AM [facility] Potassium 3.7 3.5 - 5.5 mmol/L LAB CHEMISTRY METHOD 02/18/2025 11:25 AM [facility] Chloride 107 96 - 110 mmol/L LAB CHEMISTRY METHOD 02/18/2025 11:25 AM [facility] CO2 26 21 - 32 mmol/L LAB CHEMISTRY METHOD 02/18/2025 11:25 AM [facility] Anion Gap 5 3 - 11 LAB CHEMISTRY METHOD 02/18/2025 11:25 AM [facility] Glucose 85 70 - 100 mg/dL LAB CHEMISTRY METHOD 02/18/2025 11:25 AM [facility] BUN 29(H) 5 - 25 mg/dL LAB CHEMISTRY METHOD 02/18/2025 11:25 AM [facility] Creatinine 1.67(H) 0.70 - 1.30 mg/dL LAB CHEMISTRY METHOD 02/18/2025 11:25 AM [facility] eGFR 45(L) >=60 mL/min/1. 73m2 LAB CHEMISTRY METHOD 02/18/2025 11:25 AM [facility] Comment:Calculation based on the Chronic Kidney Disease Epidemiology Collaboration (CKD-EPI) equation refit without adjustment for race. BUN/Creatinine Ratio 17.4 LAB CHEMISTRY METHOD 02/18/2025 11:25 AM [facility] Calcium 8.7 8.5 - 10.5 mg/dL LAB CHEMISTRY METHOD 02/18/2025 11:25 AM [facility] Blood Venous blood specimen / Unknown Venipuncture / Unknown 02/18/2025 6:52 AM EDT 02/18/2025 10:38 AM EDT Alexys Puentes MD LAB BLOOD ORDERABLES Final Result [facility] [address] [place] [address], * (ABNORMAL) Complete blood count (02/18/2025 6:52 [...] LAB NRBC Absolute 0.04 <0.10 K/mcL [facility] METHOD 02/18/2025 10:58 AM EDT [facility] Blood Venous blood specimen / Unknown Venipuncture / Unknown 02/18/2025 6:52 AM EDT 02/18/2025 10:37 AM EDT us Alexys Puentes MD LAB BLOOD ORDERABLES Final Result [facility] [address] [place] [address], documented in this encounter Visit Diagnoses Diagnosis Chronic kidney disease, unspecified Hyperlipidemia, unspecified Thyrotoxicosis, unspecified without thyrotoxic crisis or storm documented in this encounter Care Teams High Lift Driver Relationship Specialty Start Date End Date Morris Rizzo MD [address] [place] [address] PCP - General Internal Medicine 05/27/22 documented as of this encounter
--- OUTSIDE RECORDS SUMMARY | 2025-08-22 06:02 | XMS_ITS | Clinical Summary ---
Author Organization [facility] Address [address] [place] [address] Care Team Providers Care Tamper Operator Name Role Phone Morris Rizzo Primary Care Provider [phone] Allergies No known active allergies Medications atorvastatin [...] Cessation:Counseling Given: Not Answered Comments:On and off [id number] smoking, at most 1 PPD Alcohol Use [...] 08/03/2023 Procedures * Due to [place] law, this organization might not be sharing negative HIV tests. Procedure Name Priority Date/Time Associated Diagnosis Comments AMB EXTERNAL CT CHEST, OUTSI DE RESULT 01/23/2024 from Last 3 Months or Most Recently Relevant to Health Maintenance Results * Due to [place] law, this organization might not be sharing negative HIV tests. * AMB EXTERNAL CT CHEST, OUTSIDE RESULT (01/23/2024) Anatomical Region Laterality Modality Other 01/23/2024 [facility] EXTERNAL RESULT PROCEDURE S Final Result from Last 3 Months or Most Recently Relevant to Health Maintenance Insurance MEDICARE [facility] Advance Directives Documents on File Type Date Recorded Patient Stretcher Helper Expl anation Health Care Proxy 05/27/2024 7:26 AM Care Teams Tamper Operator Relationship Specialty Start Date End Date Morris Rizzo [address] [place] [address] [place] [address] PCP - General Internal Medicine 01/09/24
--- OUTSIDE RECORDS SUMMARY | 2025-08-22 06:02 | XMS_ITS ---
Author Organization [facility] Address [address] [place] [address] Care Team Providers Care Business Area Director Name Role Phone Morris Rizzo Primary Care Provider [phone] Active Problems Problem Noted Date Diagnosed Date Hyperkalemia 05/30/2024 Malignant neoplasm of overlapping sites of bladd er 03/04/2024 Other hydronephrosis 03/04/2024 Current Treatment and Therapy Plans No current plan information found. Past Treatment and Therapy Plans No past plan information found. Lifetime Dose Tracking * Chemical Lifetime Dose Automatic Entry Manual Entr y TotalDLP 1,042 mGy 1,042 mGy 0 mGy [id number] 13.5 mSv 13.5 mSv 0 mSv CTDIvol Max 11.8 mGy 11.8 mGy 0 mGy CTDIvol Min 7.3 mGy 7.3 mGy 0 mGy
--- OUTSIDE RECORDS SUMMARY | 2025-08-22 06:02 | XMS_ITS | Clinical Summary ---
Author Organization [facility] Address [address] [place] [address] Phone Care Team Providers Care Appeals Manager Name Role Phone Morris Rizzo MD Primary Care Provider [phone] Encounters Date Type Department Care Team Description 06/19/2025 Telephone Lung Screening Program - [place] [address] [facility] [address] [place] [phone] Edelmira Morales MA from Last 3 Months [...] EDT Narrative 08/19/2024 6:31 AM EDT [facility] Diagnostic Imaging Department [address] [place] [address] Patient: JOSE LAMBERT/Age/Sex: 1960 - 63 - M Unit#: [id number] Location/Status: SPDICATLS/REG CLI Mnemonic/Ordering Site: [facility] Ordering Physician: SUYAPA WEST MD CT Lung [...] Note Alpa Lorenzana MD - 08/24/2024 [facility] Diagnostic Imaging Department [address] [place] [address] [id number] Patient: JOSE LAMBERT Chandler Shay./Age/Sex: 1960 - 63 - M Unit#: [id number] Location/Status: [facility] CLI Mnemonic/Ordering Site: [facility] Ordering Physician: SUYAPA WEST MD CT Lung [...] Recently Relevant to Health Maintenance Insurance MEDICARE [facility] Care Teams Appeals Manager Relationship Specialty Start Date End Date Morris Rizzo MD [address] [place] [address] PCP - General Internal Medicine 05/27/22
--- OUTSIDE RECORDS SUMMARY | 2025-08-22 06:02 | XMS_ITS | Encounter Summary ---
Author Organization [facility] Address [address] [place] [address] Care Team Providers Care Printer Slotter Helper Name Role Phone Morris Rizzo Primary Care Provider [phone] Encounter Details Date Type Department Care Team (Late st Contact Info) Description 04/15/2024 Orders Only [facility] [address] [facility], 5th [place] [address] Shola Arroyo MD [address] [place] [address] Social History Tobacco Use Types Packs/Day Years [...] on filedocumented in this encounter Care Teams Printer Slotter Helper Relationship Specialty Start Date End Date Morris Rizzo [address] [place] [address] [place] [address] PCP - General Internal Medicine 01/09/24 documented as of this encounter
[2025-08-22 06:10] LABS: MANUAL DIFF FLAG NO
[2025-08-22 06:29] LABS: Alanine Aminotransferase 15 U/L (0-40); Albumin Level 4.0 g/dL (3.5-5.0); Alkaline Phosphatase 109 U/L (39-117); Anion Gap 12 (12-20); Aspartate Amino Transferase 32 U/L (5-37); Blood Urea Nitrogen 39 mg/dL (9-16); Calcium 9.6 mg/dL (8.4-10.2); Carbon Dioxide 25 mmol/L (22-29); Chloride 108 mmol/L (96-108); Estimated Glomerular Filt Rate 35; Magnesium 2.0 mg/dL (1.6-2.6); Potassium 4.8 mmol/L (3.3-5.1); Sodium 140 mmol/L (135-145); Total Protein 7.0 g/dL (6.5-8.0)
[2025-08-22 06:43] LABS: Hematocrit 35.4 % (42.0-52.0); Hemoglobin 11.5 g/dl (14.0-18.0); Imm Gran Abs Auto 0.02 X10*3/uL (0.00-0.03); Imm Gran Pct Auto 0.4 % (0.0-0.4); Lymphocytes Absolute Auto 1.4 X10*3/uL (1.2-4.9); Mean Corpuscular HGB Conc 32.5 g/dl (31.0-36.0); Mean Corpuscular Hemoglobin 31.5 pg (27.0-33.0); Mean Corpuscular Volume 97.0 fL (80.0-98.0); NRBC Abs Auto 0.000 X10*3/uL (0.0-0.012); NRBC Pct Auto 0.0 /100WBC (0.0-0.2); Platelet Count 173 X10*3/uL (160-400); Red Blood Count 3.65 X10*6/uL (4.60-5.80); White Blood Count 4.7 X10*3/uL (4.8-10.8)
== END 2025-08-22 06:00 | disposition home or self-care (01) ==
LOC: HO.LAB 05:59
PROVIDERS: PCP Internal Medicine; Visit Provider Internal Medicine
DX: C67.9 Malignant neoplasm of bladder, unspecified (principal)
CPT/HCPCS: 36415; 80053; 83735; 85025

== ENCOUNTER 2025-08-25 14:12 | Outpatient (AMB) | payer MEDICARE, OTHER, SELFPAY ==
[2025-08-25 14:33] VITALS: BP 120/88; PULSE 83; O2SAT 100; BMI 27.2
--- NOTE | 2025-08-25 14:33 | A.OFFVIS_ITS ---
Vital Signs 08/25/25 14:33 Height 6 ft 2 in Weight 211 lb 10.3 oz BMI 27.2 BP 120/88 Blood Pressure Location Lt brachial Position Sitting Pulse 83 Pulse Source Pulse Oximeter Pulse Oximetry (%) 100 Oxygen Delivery Method Room Air Intake Visit Reasons: Cough/Shortness of Breath Allergies No Known Allergies (No Known Allergies*) Allergy (Verified 08/25/25 14:37) HPI HPI Cough/Shortness of Breath: Details: Brady is a pleasant 64 year old male, former 20 pack year smoker, quit 13 years ago with underlying hypercholesterolemia, obesity, neuropathy, h/o metastatic bladder cancer under the care of [facility] , chronic kidney disease, hypothyroidism, adrenal insufficiency, and hypertension. He was initially referred after pneumonia and pulmonary embolism this past Spring. CTA 12/2024 demonstreated patchy right lung infiltrate suspicious for pneumonia treated with IV Ceftriaxone azithromycin, started 01/10/2025 with good response as cough and dyspnea improved. His blood cultures remained negative and discharged on PO Azithromycin and Ceftin for 1 week to finish total of 10 days of antibiotics. Post discharge he was noted to be tachycardic and tachypneic. D-dimer was over 3000. V/Q scan showed multiple perfusion defects bilaterally, transferred to [facility] and he was started on Eliquis for unprovoked PE however with underlying malignancy likely being the cause. Repeat CT chest performed February 2025 shows resolution of lung infiltrates without evidence of metastatic disease. Oncology is currently prescribing Eliquis and patient has been tolerating well. He continues with cough, mostly dry, occasionally productive cough with clear to white sputum mostly in the AM with associated post nasal drip. He does note that he will often get into coughing fits leading to nausea and occasional post cough emesis. He denies chest congestion, fever or chills. He denies dyspnea, wheezing or chest tightness. Today he presents to review PFT results. [facility] Medical History Pulmonary embolism Dry skin Dyspnea on exertion Left wrist pain Stiffness of left wrist joint Elevated serum creatinine Elevated blood pressure reading Hematuria Bladder mass History of immune checkpoint inhibitor therapy Hypophysitis Adrenal insufficiency Hypothyroidism Port-A-Cath in place (02/16/24) History of blood transfusion Bladder cancer Obesity (BMI 30-39.9) Pure hypercholesterolemia Hyperlipemia Carpal tunnel syndrome Surgical History Mass of left axilla (05/31/24) Hx of colonoscopy Hx of cystoscopy History of surgery History of hand surgery History of ankle surgery History of cholecystectomy Family History Father Multiple sclerosis, primary progressive Mother No problems noted. 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 Current occupational exposures/hazards: No Cognitive needs: No Hearing needs: No Vision needs: Yes (Glasses) Review of Systems Const Denies chills, Denies excessive sweating, Denies fever(s), Denies headache(s) and Denies night sweats Eyes Denies dry eyes, Denies irritation and Denies itchy eyes ENT Reports Normal hearing present, Denies headache(s), Reports nasal discharge and Denies sore throat Card Denies chest pain, Denies chest pain at rest, Denies chest pain with activity, Denies claudication, Denies leg edema, Denies dyspnea, Denies dyspnea on exertion, Denies orthopnea and Denies paroxysmal nocturnal dyspnea Resp Denies chest congestion, Denies excessive phlegm production, Denies pain on in spiration, Denies pain with cough, Denies dyspnea, Denies dyspnea on exertion, Denies stridor and Denies wheezing Musc Denies myalgias Neuro Reports Normal hearing present and Denies headache(s) Endo Denies excessive sweating Phil/Lymph Denies lymphadenopathy Aller/Immun Denies itchy eyes, Denies seasonal rhinorrhea and Denies wheezing Physical Exam Vital Signs: Last Vital Signs Pulse 83 08/25/25 14:33 BP 120/88 08/25/25 14:33 Pulse Ox 100 08/25/25 14:33 Oxygen Delivery Method Room Air 08/25/25 14:33 BMI result Body Mass Index 27.2 Const General: cooperative, comfortable, no acute distress, well developed and alert Orientation/consciousness: patient oriented x3 Limitations: no limitations HEENT Head: Yes normal to inspection, Yes normocephalic and Yes atraumatic Ears: hearing grossly normal bilaterally and external ears normal Eyes General: appearance normal, both eyes and all related structures Eyelids: Yes eyelids normal Sclerae: sclerae normal EOM: EOMs intact bilaterally Neck Neck: Yes normal visual inspection and Yes no lymphadenopathy Lymphatic: no lymphadenopathy noted Chest Chest palpation & inspection: normal inspection of the chest Resp Other: diminshed throughout, with decreased aeration of RLL Effort & Inspection: normal respiratory effort, able to speak in complete sentences, no audible wheezes, Actively coughing Quality: wet, no stridor, not tachypneic, no tripod positioning and no use of accessory muscles Cardio Jugular venous distension: no JVD Rate: regular rate Rhythm: regular rhythm Skin Other: warm, dry General skin exam: no rashes or lesions noted Neuro General: patient oriented x3 Cranial nerves: Yes Normal hearing present Cognition (Neuro): normal cognition Gait exam (Neuro): Normal gait present Extrem General: Yes normal to inspection, Yes capillary refill normal, Yes no clubbing, cyanosis or edema and Yes no pedal edema Psych Appearance: grossly normal and well kempt Speech and movement: Normal speech and movement present and Clear speech present Affect: normal affect Attitude: cooperative Thought process: Normal thought process present Thought content: Normal thought content present Insight: Good insight present (Psych) Judgement: Good judgement present (Psych) Assessment & Plan Assessment & Plan (1) Asthma: Code(s): J45.909 - Unspecified asthma, uncomplicated Category: Medical (2) Pulmonary embolism: Code(s): I26.99 - Other pulmonary embolism without acute cor pulmonale Category: Medical (3) Cough: Code(s): R05.9 - Cough, unspecified Category: Medical Plan Reviewed PFT which revealed no obstructive or restrictive ventilatory defect. Bronchodilator response is present in small to medium airways only. Increased residual volume suggests air trapping. Decreased diffusion capacity suggests emphysema however no significant emphysema noted on prior CTA. Discussed findings suggestive of asthma, will start Breo. Discussed importance of good oral hygiene to prevent thrush. Albuterol MDI PRN. Will send for CXR today given abnormal respiratory exam with plans to obtain Chest CT for chronic cough. All questions were answered and patient is in agreement of plan. Will follow up to review results or sooner if needed. Orders: Orders XR chest 2V Today R05.9 - Cough, unspecified CT chest wo IV con Today C67.9 - Malignant neoplasm of bladder, unspecified, R05.9 - Cough, unspecified Medications: New fluticasone furoate-vilanterol 100-25 mcg/dose (Breo Ellipta) 1 inh inhalation DAILY 60 ea 3RF Coding Level of Care Code Est Pt Level 4 (58989) Complex EM visit Add On G2211 Diagnoses Asthma J45.909 Pulmonary embolism I26.99 Cough R05.9
== END 2025-08-25 15:36 | disposition home or self-care (01) ==
LOC: HO.HPS 14:13
PROVIDERS: Visit Provider Nurse Practitioner Family
DX: J45.909 Unspecified asthma, uncomplicated (principal); I26.99 Other pulmonary embolism without acute cor pulmonale; R05.9 Cough, unspecified
CPT/HCPCS: 99214; G2211

== ENCOUNTER → 2025-08-25 14:12 | Outpatient (BNVA) | payer MEDICARE, OTHER, SELFPAY | PROVIDERS: Visit Provider Nurse Practitioner Family | DX: R05.9 Cough, unspecified (principal); C67.9 Malignant neoplasm of bladder, unspecified; Z86.711 Personal history of pulmonary embolism; Z79.01 Long term (current) use of anticoagulants; Z87.891 Personal history of nicotine dependence; Z87.09 Personal history of other diseases of the respiratory system | CPT/HCPCS: 99212 ==

== ENCOUNTER 2025-09-05 08:17 | Outpatient (REF) | payer MEDICARE, OTHER, SELFPAY ==
--- OUTSIDE RECORDS SUMMARY | 2024-06-03 09:50 | XMS_ITS ---
Author Organization [facility] Address [address] [place] [address] Care Team Providers Care Ram Press Operator Name Role Phone So MCALLISTER, Primary Care Provider Unavaila Jose Doty Unavailable [phone] Eamon MCALLISTER, Zamzam Lindsay Unavailable REASON FOR VISIT colon screening Encounters Encounter Location Date Provider Diagnosis [facility] [place] [facility] [address] [facility] [id number] 06/03/2024 Jose Arevalo Plan Of Treatment No Information Progress Notes * JOSE CUBADOB:1960 (64 yo M)Acc No.[id number]:06/03/2024 COLON WITH MAC Patient: JOSE LOPEZ Provider: Disha Arevalo MD :1960 A ge:63 Y S ex:Male Date:06/03/2024 Address:[address] [place] [address] [id number] Pcp:Morris Rizzo MD Subjective: * Chief Complaints: * 1 . Colon screening. * Medical History: Objective: * Vitals: Assessment: Plan: * Treatment: * * The named appointment provid er may or may not be the originator of this progress note, and it is not deemed complete until electronically signed by the appointment provider. Sign off status: Pending * Provider: Disha Arevalo MD Date: 0 06/03/2024 Generated for Sade cerda/Todd/eTelieseritting on: 11/05/2024 08:27 AM EST
--- NOTE | ~2025-09-05 | XR_ITS ---
EXAMINATION: XR CHEST CLINICAL INFORMATION: R05.9 - Cough, unspecified COMPARISON: April 29, 2025 TECHNIQUE: PA and lateral views. FINDINGS: Hyperinflated lungs. No consolidation, pleural effusion or pneumothorax. Cardiomediastinal silhouette size is normal. Right-sided Port-A-Cath tip ends in the SVC, unchanged. Multilevel thoracolumbar spondylosis and a shaped curvature of the thoracolumbar spine. Vascular clips in the right upper quadrant abdomen. XR/XR chest 2V IMPRESSION: COPD emphysematous type changes without acute airspace disease. Scoliosis and spondylosis, thoracolumbar spine. Stable position of the right-sided Port-A-Cath. Status post cholecystectomy. Electronically signed by: Constantino Haddad MD 09/05/2025 09:02 AM [facility]
--- OUTSIDE RECORDS SUMMARY | 2025-09-05 08:26 | XMS_ITS | Encounter Summary ---
Author Organization [facility] Address [address] [place] [address] Care Team Providers Care Marketing Underwriter Name Role Phone Morris Rizzo Primary Care Provider [phone] Encounter Details Date Type Department Care Team (Late st Contact Info) Description 04/15/2024 Orders Only [facility] [address] 5th [place] [address] Shola Arroyo MD [address] [place] [address] Social History Tobacco Use Types Packs/Day Years [...] on filedocumented in this encounter Care Teams Marketing Underwriter Relationship Specialty Start Date End Date Morris Rizzo [address] [place] [address] [place] [address] PCP - General Internal Medicine 01/09/24 documented as of this encounter
--- OUTSIDE RECORDS SUMMARY | 2025-09-05 08:27 | XMS_ITS | Encounter Summary ---
Author Organization [facility] Address [address] [place] [address] Care Team Providers Care Editing Clerk Name Role Phone Morris Rizzo MD Primary Care Provider [phone] Encounter Details Date Type Department Care Team (Late st Contact Info) Description 02/17/2025 Lab Requisition [facility] Main Lab [address] [facility] [place] [address] Alexys Puentes MD [address] [place] [phone] Chronic kidney disease, unspecified; Hyperlipidemia, unspecified; Thyrotoxicosis, [...] mmol/L LAB CHEMISTRY METHOD 02/18/2025 11:[address] [facility] Potassium 3.7 3.5 - 5.5 mmol/L LAB CHEMISTRY METHOD 02/18/2025 11:[address] [facility] Chloride 107 96 - 110 mmol/L LAB CHEMISTRY METHOD 02/18/2025 11:[address] [facility] CO2 26 21 - 32 mmol/L LAB CHEMISTRY METHOD 02/18/2025 11:[address] [facility] Anion Gap 5 3 - 11 LAB CHEMISTRY METHOD 02/18/2025 11:[address] [facility] Glucose 85 70 - 100 mg/dL LAB CHEMISTRY METHOD 02/18/2025 11:[address] [facility] BUN 29(H) 5 - 25 mg/dL LAB CHEMISTRY METHOD 02/18/2025 11:[address] [facility] Creatinine 1.67(H) 0.70 - 1.30 mg/dL LAB CHEMISTRY METHOD 02/18/2025 11:[address] [facility] eGFR 45(L) >=60 mL/min/1. 73m2 LAB CHEMISTRY METHOD 02/18/2025 11:[address] [facility] Comment:Calculation based on the Chronic Kidney Disease Epidemiology Collaboration (CKD-EPI) equation refit without adjustment for race. BUN/Creatinine Ratio 17.4 LAB CHEMISTRY METHOD 02/18/2025 11:[address] [facility] Calcium 8.7 8.5 - 10.5 mg/dL LAB CHEMISTRY METHOD 02/18/2025 11:[address] [facility] Blood Venous blood specimen / Unknown Venipuncture / Unknown 02/18/2025 6:52 AM EDT 02/18/2025 10:38 AM EDT Alexys Puentes MD LAB BLOOD ORDERABLES Final Result [facility] [address] [place] [address], * (ABNORMAL) Complete blood count (02/18/2025 6:52 AM EDT) WBC 4.2(L) 4.8 - 10.8 K/mcL LAB HEMETOLOGY METHOD 02/18/2025 10:58 AM EDT [facility] RBC 2.80(L) 4.50 - 5.50 M/mcL LAB HEMETOLOGY METHOD 02/18/2025 10:58 AM EDT [facility] Hemoglobin 9.4(L) 13.5 - 17.5 g/dL LAB HEMETOLOGY METHOD 02/18/2025 10:58 AM EDT [facility] Hematocrit 29.1(L) 42.0 - 54.0 % LAB HEMETOLOGY METHOD 02/18/2025 10:58 AM EDT [facility] MCV 103.9(H) 79.0 - 98.0 FL LAB HEMETOLOGY METHOD 02/18/2025 10:58 AM EDT [facility] MCH 33.6(H) 27.0 - 32.0 pcg LAB HEMETOLOGY METHOD 02/18/2025 10:58 AM EDT [facility] MCHC 32.3 32.0 - 37.0 g/dL LAB HEMETOLOGY METHOD 02/18/2025 10:58 AM EDT [facility] RDW 20.8(H) 11.0 - 15.0 % LAB HEMETOLOGY METHOD 02/18/2025 10:58 AM EDT [facility] Platelets 206 130 - 400 K/mcL LAB HEMETOLOGY METHOD 02/18/2025 10:58 AM EDT [facility] MPV 9.7 7.0 - 11.0 FL LAB HEMETOLOGY METHOD 02/18/2025 10:58 AM EDT [facility] NRBC 1.0(H) <1.0 % LAB HEMETOLOGY METHOD 02/18/2025 10:58 AM EDT [facility] NRBC Absolute 0.04 <0.10 K/mcL [facility] 02/18/2025 10:58 AM EDT [facility] Blood Venous blood specimen / Unknown Venipuncture / Unknown 02/18/2025 6:52 AM EDT 02/18/2025 10:37 AM EDT us Alexys Puentes MD LAB BLOOD ORDERABLES Final Result [facility] [address] [place] [address], documented in this encounter Visit Diagnoses Diagnosis Chronic kidney disease, unspecified Hyperlipidemia, unspecified Thyrotoxicosis, unspecified without thyrotoxic crisis or storm documented in this encounter Care Teams Editing Clerk Relationship Specialty Start Date End Date Morris Rizzo MD [address] [place] [address] PCP - General Internal Medicine 05/27/22 documented as of this encounter
--- OUTSIDE RECORDS SUMMARY | 2025-09-05 08:27 | XMS_ITS | Clinical Summary ---
Author Organization [facility] Address [address] [place] [address] Care Team Providers Care Railroad Signal Operator Name Role Phone Morris Rizzo Primary Care Provider [phone] Allergies No known active allergies Medications atorvastatin [...] Cessation:Counseling Given: Not Answered Comments:On and off [id number] smoking, at most 1 PPD Alcohol Use [...] patients) Completed 08/03/2023 Procedures * Due to [facility] law, this organization might not be sharing negative HIV tests. Procedure Name Priority Date/Time Associated Diagnosis Comments AMB EXTERNAL CT CHEST, OUTSI DE RESULT 01/23/2024 from Last 3 Months or Most Recently Relevant to Health Maintenance Results * Due to [place] [employer] law, this organization might not be sharing negative HIV tests. * AMB EXTERNAL CT CHEST, OUTSIDE RESULT (01/23/2024) 01/23/2024 us On[facility] AMB EXTERNAL RESULT PROCEDURE S Final Result from Last 3 Months or Most Recently Relevant to Health Maintenance Insurance MEDICARE [facility] Advance Directives Documents on File Type Date Recorded Patient Boatswains Mate [facility] Proxy 05/27/2024 7:26 AM Care Teams Railroad Signal Operator Relationship Specialty Start Date End Date Morris Rizzo [address] [place] [address] [place] [address] PCP - General Internal Medicine 01/09/24
--- OUTSIDE RECORDS SUMMARY | 2025-09-05 08:27 | XMS_ITS | Patient Health Record ---
Author Organization [facility] Address [address] [place] [address] Care Team Providers Care In Home Baby Sitter Name Role Phone So MCALLISTER, Primary Care Provider Unavaila yaquelin Arevalo Jose Unavailable [phone] Eamon MCALLISTER, Zamzam Unavailable Unavailable Reason For [...] Status Risk Notes Problem Colon cancer screening (382946308) Colon cancer screening (Z12.11) Active confirmed Problem Epigastric pain (03191200) Epigastric abdominal pain (R10.13) Active confirmed Problem Screening for malignant neoplasm of colon (835089759) Encounter for screening for malignant neoplasm of colon (Z12.11) Active confirmed Problem Preprocedural examination (996628665120302) Preprocedural examination (Z01.818) Active confirmed Plan Of Treatment Future Test Test Name Order Date UPPER GI ENDOSCOPY 08/23/2017 COLONOSCOPY 04/10/2019 COLONOSCOPY 04/26/2024 Insurance Providers Payer Name Payer Address Payer Phone Subscriber Number Group Number Insured Name Patient Relationship to Insured Coverage Start Date Coverage End Date MEDICARE OF [place] [address] [place] [address] [id number] JOSE CUBA Self - patient is the insured [employer] [address] [place] [address] [id number] JOSE CUBA Self - patient is the insured Medical (General) History Medical History History ICD Code Denies TN,DM,CVA,Lung disease,renal dise ase Hyperlipidemia Screening colonoscopy in Mar with Dr. Johansen revealed only hyperplastic polyps. EGD in 08/2017-small HH, normal duodenal and gastric biopsies Surgical History Surgery Date(Month/Year) Lap cholecystectomy--acalculous cholecys titis-Dr. Knutson 05/2017 Finger- infection drained 1969
--- OUTSIDE RECORDS SUMMARY | 2025-09-05 08:27 | XMS_ITS | Encounter Summary ---
Author Organization [facility] Address [address] [place] [address] Care Team Providers Care Drawer In Jacquard Loom Name Role Phone Morris Rizzo MD Primary Care Provider [phone] Encounter Details Date Type Department Care Team (Late st Contact Info) Description 02/10/2025 Lab Requisition [facility] - Main Lab 299 [facility] [place] [address] Alexys Puentes MD [address] [place] [address] Chronic kidney disease, unspecified; Hyperlipidemia, unspecified; Thyrotoxicosis, [...] free t3 (02/11/2025 7:58 AM EDT) Pathologist [facility] Emergency Department TSH 2.86 0.40 - 4.00 mcIU/mL LAB CHEMISTRY METHOD 02/11/2025 1:02 PM EDT [facility] Blood Venous blood specimen / Unknown Venipuncture / Unknown 02/11/2025 7:58 AM EDT 02/11/2025 9:08 AM EDT Alexys Puentes MD LAB BLOOD ORDERABLES Final Result [facility] [address] [place] [address], * (ABNORMAL) Basic metabolic panel (02/11/2025 7:58 AM EDT) [facility] Sodium 143 133 - 145 mmol/L LAB CHEMISTRY METHOD 02/11/2025 11:11 AM [facility] Potassium 4.4 3.5 - 5.5 mmol/L LAB CHEMISTRY METHOD 02/11/2025 11:11 AM [facility] Chloride 109 96 - 110 mmol/L LAB CHEMISTRY METHOD 02/11/2025 11:11 AM [facility] CO2 27 21 - 32 mmol/L LAB CHEMISTRY METHOD 02/11/2025 11:11 AM [facility] Anion Gap 7 3 - 11 LAB CHEMISTRY METHOD 02/11/2025 11:11 AM [facility] Glucose 89 70 - 100 mg/dL LAB CHEMISTRY METHOD 02/11/2025 11:11 AM [facility] BUN 31(H) 5 - 25 mg/dL LAB CHEMISTRY METHOD 02/11/2025 11:11 AM EDT [facility] Creatinine 1.67(H) 0.70 - 1.30 mg/dL LAB CHEMISTRY METHOD 02/11/2025 11:11 AM EDT [facility] eGFR 45(L) >=60 mL/min/1. 73m2 LAB CHEMISTRY METHOD 02/11/2025 11:11 AM EDT [facility] Comment:Calculation based on the Chronic Kidney Disease Epidemiology Collaboration (CKD-EPI) equation refit without adjustment for race. BUN/Creatinine Ratio 18.6 LAB CHEMISTRY METHOD 02/11/2025 11:11 AM EDT [facility] Calcium 8.7 8.5 - 10.5 mg/dL LAB CHEMISTRY METHOD 02/11/2025 11:11 AM [facility] Blood Venous blood specimen / Unknown Venipuncture / Unknown 02/11/2025 7:58 AM EDT 02/11/2025 9:08 AM EDT us Alexys Puentes MD LAB BLOOD ORDERABLES Final Result [facility] [address] [place] [address], * (ABNORMAL) Complete blood count (02/11/2025 7:58 AM EDT) WBC 5.0 4.8 - 10.8 K/mcL LAB HEMETOLOGY METHOD 02/11/2025 10:45 AM EDT [facility] RBC 2.90(L) 4.50 - 5.50 M/mcL LAB HEMETOLOGY METHOD 02/11/2025 10:45 AM EDT [facility] Hemoglobin 9.4(L) 13.5 - 17.5 g/dL LAB HEMETOLOGY METHOD 02/11/2025 10:45 AM EDT [facility] Hematocrit 29.0(L) 42.0 - 54.0 % LAB HEMETOLOGY METHOD 02/11/2025 10:45 AM EDT [facility] MCV 101.4(H) 79.0 - 98.0 FL LAB HEMETOLOGY METHOD 02/11/2025 10:45 AM EDT [facility] MCH 32.9(H) 27.0 - 32.0 pcg LAB HEMETOLOGY METHOD 02/11/2025 10:45 AM EDT [facility] MCHC 32.4 32.0 - 37.0 g/dL LAB HEMETOLOGY METHOD 02/11/2025 10:45 AM EDT [facility] RDW 20.2(H) 11.0 - 15.0 % LAB HEMETOLOGY METHOD 02/11/2025 10:45 AM T [facility] Platelets 203 130 - 400 K/mcL LAB HEMETOLOGY METHOD 02/11/2025 10:45 AM EDT [facility] MPV 9.8 7.0 - 11.0 FL LAB HEMETOLOGY METHOD 02/11/2025 10:45 AM EDT [facility] NRBC 1.0(H) <1.0 % LAB HEMETOLOGY METHOD 02/11/2025 10:45 AM T [facility] NRBC Absolute 0.05 <0.10 K/mcL LAB HEMETOLOGY METHOD 02/11/2025 10:45 AM EDT [facility] Blood Venous blood specimen / Unknown Venipuncture / Unknown 02/11/2025 7:58 AM EDT 02/11/2025 9:08 AM EDT us Aelxys Puentes MD LAB BLOOD ORDERABLES Final Result [facility] [address] [place] [address], documented in this encounter Visit Diagnoses Diagnosis Chronic kidney disease, unspecified Hyperlipidemia, unspecified Thyrotoxicosis, unspecified without thyrotoxic crisis or storm Disorder of thyroid, unspecified documented in this encounter Care Teams Drawer In Jacquard Loom Relationship Specialty Start Date End Date Morris Rizzo MD [address] [place] [address] Drive [address] [place] [address] PCP - General Internal Medicine 05/27/22 documented as of this encounter
--- OUTSIDE RECORDS SUMMARY | 2025-09-05 08:27 | XMS_ITS | Clinical Summary ---
Author Organization [facility] Address [address] [facility] [address] [place], [place] [phone] Phone Care Team Providers Care Pin Ticket Machine Operator Name Role Phone Unavailable Primary Care Provider [...] Insurance [place] [id number] MEDICARE PART A & B MEDICARE PART A & B MEDICARE PART A & B MEDICARE PART A & B MEDICARE PART A & B Additional Source Comments The information contained in this document represents components of the legal health record. It is not the complete legal health record.[facility]
--- OUTSIDE RECORDS SUMMARY | 2025-09-05 08:27 | XMS_ITS | Clinical Summary ---
Author Organization [facility] Address [address] [place] [address] Phone Care Team Providers Care Research Home Economist Name Role Phone Morris Rizzo MD Primary Care Provider [phone] Encounters Date Type Department Care Team Description 06/19/2025 Telephone Lung Screening Program - [place] 299 [facility] [address] [place] [phone] Edelmira Morales MA from Last 3 Months [...] AM EDT Narrative 08/19/2024 6:[address] [facility] Diagnostic Imaging Department [address] [place] [address] Patient: JOSE LAMBERT/Age/Sex: 1960 - 63 - M Unit#: [id number] Location/Status: SPDICATLS/REG CLI Mnemonic/Ordering Site: [facility] Ordering Physician: SUYAPA WEST MD CT Lung [...] Procedure Note Alpa Lorenzana MD - 08/24/2024 [facility] Diagnostic Imaging Department [address] [place] [id number] Patient: JOSE LAMBERT Chandler Shay./Age/Sex: 1960 - 63 - M Unit#: [id number] Location/Status: [facility] CLI Mnemonic/Ordering Site: [facility] Ordering Physician: SUYAPA WEST MD CT Lung [...] Recently Relevant to Health Maintenance Insurance MEDICARE [facility] Care Teams Research Home Economist Relationship Specialty Start Date End Date Morris Rizzo MD [address] [place] [address] PCP - General Internal Medicine 05/27/22
--- OUTSIDE RECORDS SUMMARY | 2025-09-05 08:27 | XMS_ITS | Encounter Summary ---
Author Organization [facility] Address [address] [place] [address] Care Team Providers Care Construction Crew Member Name Role Phone Morris Rizzo MD Primary Care Provider Encounter Details Date Type Department Care Team (Late st Contact Info) Description 02/03/2025 Lab Requisition [facility] - Main Lab 299 [facility] [place] [address] Alexys Puentes MD [address] [place] [address] Chronic kidney disease, unspecified; Hyperlipidemia, unspecified; Thyrotoxicosis, [...] mg/dL LAB CHEMISTRY METHOD 02/04/2025 12:03 PM [facility] Bilirubin, Direct 0.2 0.0 - 0.3 mg/dL LAB CHEMISTRY METHOD 02/04/2025 12:03 PM [facility] Bilirubin, Indirect 0.6 0.0 - 1.1 mg/dL LAB CHEMISTRY METHOD 02/04/2025 12:03 PM [facility] ALT (SGPT) 52 10 - 60 unit/L LAB CHEMISTRY METHOD 02/04/2025 12:03 PM [facility] AST (SGOT) 27 10 - 42 unit/L LAB CHEMISTRY METHOD 02/04/2025 12:03 PM [facility] Alkaline Phosphatase 128(H) 42 - 121 unit/L LAB CHEMISTRY METHOD 02/04/2025 12:03 PM [facility] Blood Venous blood specimen / Unknown Venipuncture / Unknown 02/04/2025 8:05 AM EDT 02/04/2025 10:03 AM EDT us Alexys Puentes MD LAB BLOOD ORDERABLES Final Result [facility] [address] [place], [place] [address] [phone] * (ABNORMAL) Basic metabolic panel (02/04/2025 8:05 AM EDT) Sodium 138 133 - 145 mmol/L LAB CHEMISTRY METHOD 02/04/2025 12:03 PM [facility] Potassium 3.4(L) 3.5 - 5.5 mmol/L LAB CHEMISTRY METHOD 02/04/2025 12:03 PM [facility] Chloride 105 96 - 110 mmol/L LAB CHEMISTRY METHOD 02/04/2025 12:03 PM [facility] CO2 27 21 - 32 mmol/L LAB CHEMISTRY METHOD 02/04/2025 12:03 PM [facility] Anion Gap 6 3 - 11 LAB CHEMISTRY METHOD 02/04/2025 12:03 PM [facility] Glucose 75 70 - 100 mg/dL LAB CHEMISTRY METHOD 02/04/2025 12:03 PM [facility] BUN 34(H) 5 - 25 mg/dL LAB CHEMISTRY METHOD 02/04/2025 12:03 PM [facility] Creatinine 1.66(H) 0.70 - 1.30 mg/dL LAB CHEMISTRY METHOD 02/04/2025 12:03 PM [facility] eGFR 45(L) >=60 mL/min/1. 73m2 LAB CHEMISTRY METHOD 02/04/2025 12:03 PM [facility] Comment:Calculation based on the Chronic Kidney Disease Epidemiology Collaboration (CKD-EPI) equation refit without adjustment for race. BUN/Creatinine Ratio 20.5 LAB CHEMISTRY METHOD 02/04/2025 12:03 PM [facility] Calcium 8.9 8.5 - 10.5 mg/dL LAB CHEMISTRY METHOD 02/04/2025 12:03 PM [facility] Blood Venous blood specimen / Unknown Venipuncture / Unknown 02/04/2025 8:05 AM EDT 02/04/2025 10:03 AM EDT us Alexys Puentes MD LAB BLOOD ORDERABLES Final Result [facility] [address] [place] [address], [place] [phone] * (ABNORMAL) Complete blood count (02/04/2025 8:05 AM EDT) WBC 4.8 4.8 - 10.8 K/mcL LAB HEMETOLOGY METHOD 02/04/2025 11:16 AM EDT [facility] RBC 3.10(L) 4.50 - 5.50 M/mcL LAB HEMETOLOGY METHOD 02/04/2025 11:16 AM [facility] Hemoglobin 9.9(L) 13.5 - 17.5 g/dL LAB HEMETOLOGY METHOD 02/04/2025 11:16 AM [facility] Hematocrit 29.6(L) 42.0 - 54.0 % LAB HEMETOLOGY METHOD 02/04/2025 11:16 AM [facility] MCV 97.0 79.0 - 98.0 FL LAB HEMETOLOGY METHOD 02/04/2025 11:16 AM [facility] MCH 32.5(H) 27.0 - 32.0 pcg LAB HEMETOLOGY METHOD 02/04/2025 11:16 AM [facility] MCHC 33.4 32.0 - 37.0 g/dL LAB HEMETOLOGY METHOD 02/04/2025 11:16 AM [facility] RDW 19.0(H) 11.0 - 15.0 % LAB HEMETOLOGY METHOD 02/04/2025 11:16 AM [facility] Platelets 120(L) 130 - 400 [...] ORDERABLES Final Result [facility] [address] [place] [address], documented in this encounter Visit Diagnoses Diagnosis Chronic kidney disease, unspecified Hyperlipidemia, unspecified Thyrotoxicosis, unspecified without thyrotoxic crisis or storm documented in this encounter Care Teams Construction Crew Member Relationship Specialty Start Date End Date Morris Rizzo MD [address] [facility] [address] [place] [address] PCP - General Internal Medicine 05/27/22 documented as of this encounter
--- OUTSIDE RECORDS SUMMARY | 2025-09-05 08:27 | XMS_ITS ---
Author Organization [facility] Address [address] [place] [address] Care Team Providers Care Reception Centre Manager Name Role Phone Morris Rizzo Primary Care Provider [phone] Active Problems Problem Noted Date Diagnosed Date Hyperkalemia 05/30/2024 Malignant neoplasm of overlapping sites of bladd er 03/04/2024 Other hydronephrosis 03/04/2024 Current Treatment and Therapy Plans No current plan information found. Past Treatment and Therapy Plans No past plan information found. Lifetime Dose Tracking * Chemical Lifetime Dose Automatic Entry Manual Entr y TotalDLP 1,042 mGy 1,042 mGy 0 mGy [id number] 13.5 mSv 13.5 mSv 0 mSv CTDIvol Max 11.8 mGy 11.8 mGy 0 mGy CTDIvol Min 7.3 mGy 7.3 mGy 0 mGy
--- OUTSIDE RECORDS SUMMARY | 2025-09-05 08:27 | XMS_ITS | Encounter Summary ---
Author Organization [facility] Address [address] [place] [address] Care Team Providers Care Dry Sand Molder Name Role Phone Morris Rizzo MD Primary Care Provider [phone] Encounter Details Date Type Department Care Team (Late st Contact Info) Description 01/28/2025 Lab Requisition [facility] - Main Lab 299 [facility] [place] [address] Alexys Puentes MD [address] [place] [address] Chronic kidney disease, unspecified; Hyperlipidemia, unspecified; Hypothyroidism, [...] mmol/L LAB CHEMISTRY METHOD 01/28/2025 11:56 AM [facility] Potassium 4.0 3.5 - 5.5 mmol/L LAB CHEMISTRY METHOD 01/28/2025 11:56 AM [facility] Chloride 101 96 - 110 mmol/L LAB CHEMISTRY METHOD 01/28/2025 11:56 AM [facility] CO2 27 21 - 32 mmol/L LAB CHEMISTRY METHOD 01/28/2025 11:56 AM [facility] Anion Gap 7 3 - 11 LAB CHEMISTRY METHOD 01/28/2025 11:56 AM [facility] Glucose 87 70 - 100 mg/dL LAB CHEMISTRY METHOD 01/28/2025 11:56 AM [facility] BUN 44(H) 5 - 25 mg/dL LAB CHEMISTRY METHOD 01/28/2025 11:56 AM [facility] Creatinine 1.39(H) 0.70 - 1.30 mg/dL LAB CHEMISTRY METHOD 01/28/2025 11:56 AM [facility] eGFR 56(L) >=60 mL/min/1. 73m2 LAB CHEMISTRY METHOD 01/28/2025 11:56 AM [facility] Comment:Calculation based on the Chronic Kidney Disease Epidemiology Collaboration (CKD-EPI) equation refit without adjustment for race. BUN/Creatinine Ratio 31.7 LAB CHEMISTRY METHOD 01/28/2025 11:56 AM [facility] Calcium 8.8 8.5 - 10.5 mg/dL LAB CHEMISTRY METHOD 01/28/2025 11:56 AM [facility] AST (SGOT) 39 10 - 42 unit/L LAB CHEMISTRY METHOD 01/28/2025 11:56 AM [facility] ALT (SGPT) 105(H) 10 - 60 unit/L LAB CHEMISTRY METHOD 01/28/2025 11:56 AM [facility] Alkaline Phosphatase 147(H) 42 - 121 unit/L LAB CHEMISTRY METHOD 01/28/2025 11:56 AM EDT [facility] Total Protein 5.5(L) 6.0 - 8.0 g/dL LAB CHEMISTRY METHOD 01/28/2025 11:56 AM [facility] Albumin 2.6(L) 3.2 - 5.0 g/dL LAB CHEMISTRY METHOD 01/28/2025 11:56 AM [facility] Total Bilirubin 0.9 0.0 - 1.4 mg/dL LAB CHEMISTRY METHOD 01/28/2025 11:56 AM T [facility] Blood Venous blood specimen / Unknown Venipuncture / Unknown 01/28/2025 8:36 AM EDT 01/28/2025 10:43 AM EDT Alexys Puentes MD LAB BLOOD ORDERABLES Final Result [facility] [address] [place] [address], * (ABNORMAL) Complete blood count (01/28/2025 8:36 AM EDT) WBC 5.1 4.8 - 10.8 K/[facility] LAB HEMETOLOGY METHOD 01/28/2025 12:04 PM [facility] RBC 3.50(L) 4.50 - 5.50 M/[facility] LAB HEMETOLOGY METHOD 01/28/2025 12:04 PM [facility] Hemoglobin 11.6(L) 13.5 - 17.5 g/dL LAB HEMETOLOGY METHOD 01/28/2025 12:04 PM [facility] Hematocrit 34.2(L) 42.0 - 54.0 % LAB HEMETOLOGY METHOD 01/28/2025 12:04 PM [facility] MCV 96.6 79.0 - 98.0 FL LAB HEMETOLOGY METHOD 01/28/2025 12:04 PM EDT [facility] MCH 32.8(H) 27.0 - 32.0 pcg LAB HEMETOLOGY METHOD 01/28/2025 12:04 PM EDT [facility] MCHC 33.9 32.0 - 37.0 g/dL LAB HEMETOLOGY METHOD 01/28/2025 12:04 PM EDT [facility] RDW 18.3(H) 11.0 - 15.0 % LAB HEMETOLOGY METHOD 01/28/2025 12:04 PM EDT [facility] Platelets 92(L) 130 - 400 K/mcL LAB HEMETOLOGY METHOD 01/28/2025 12:04 PM EDT [facility] Comment:reviewed by slide MPV 10.4 7.0 - 11.0 FL LAB HEMETOLOGY METHOD 01/28/2025 12:04 PM EDT [facility] NRBC 0.4 <1.0 % LAB HEMETOLOGY METHOD 01/28/2025 12:04 PM EDT [facility] NRBC Absolute 0.02 <0.10 K/mcL LAB HEMETOLOGY METHOD 01/28/2025 12:04 PM EDT [facility] Blood Venous blood specimen / Unknown Venipuncture / Unknown 01/28/2025 8:36 AM EDT 01/28/2025 10:43 AM EDT us Alexys Puentes MD LAB BLOOD ORDERABLES Final Result [facility] [address] [place] [address], documented in this encounter Visit Diagnoses Diagnosis Chronic kidney disease, unspecified Hyperlipidemia, unspecified Hypothyroidism, unspecified documented in this encounter Care Teams Dry Sand Molder Relationship Specialty Start Date End Date Morris Rizzo MD [address] [place] [address] PCP - General Internal Medicine 05/27/22 documented as of this encounter
[2025-09-05 08:33] LABS: MANUAL DIFF FLAG NO
[2025-09-05 08:34] LABS: Hematocrit 35.1 % (42.0-52.0); Hemoglobin 11.5 g/dl (14.0-18.0); Imm Gran Abs Auto 0.03 X10*3/uL (0.00-0.03); Imm Gran Pct Auto 0.6 % (0.0-0.4); Lymphocytes Absolute Auto 1.2 X10*3/uL (1.2-4.9); Mean Corpuscular HGB Conc 32.8 g/dl (31.0-36.0); Mean Corpuscular Hemoglobin 31.8 pg (27.0-33.0); Mean Corpuscular Volume 97.0 fL (80.0-98.0); NRBC Abs Auto 0.000 X10*3/uL (0.0-0.012); NRBC Pct Auto 0.0 /100WBC (0.0-0.2); Platelet Count 160 X10*3/uL (160-400); Red Blood Count 3.62 X10*6/uL (4.60-5.80); White Blood Count 4.8 X10*3/uL (4.8-10.8)
[2025-09-05 08:51] LABS: Alanine Aminotransferase 17 U/L (0-40); Albumin Level 4.2 g/dL (3.5-5.0); Alkaline Phosphatase 109 U/L (39-117); Anion Gap 14 (12-20); Aspartate Amino Transferase 38 U/L (5-37); Blood Urea Nitrogen 31 mg/dL (9-16); Calcium 9.5 mg/dL (8.4-10.2); Carbon Dioxide 24 mmol/L (22-29); Chloride 108 mmol/L (96-108); Estimated Glomerular Filt Rate 35; Magnesium 2.0 mg/dL (1.6-2.6); Potassium 5.1 mmol/L (3.3-5.1); Sodium 141 mmol/L (135-145); Total Protein 7.2 g/dL (6.5-8.0)
== END 2025-09-05 08:18 | disposition home or self-care (01) ==
LOC: HO.LAB 08:17
PROVIDERS: Visit Provider Internal Medicine
DX: C67.9 Malignant neoplasm of bladder, unspecified (principal); R05.9 Cough, unspecified
CPT/HCPCS: 36415; 71046; 80053; 83735; 85025

== ENCOUNTER → 2025-09-05 08:40 | Outpatient (BNV) | payer MEDICARE, OTHER, SELFPAY | PROVIDERS: Visit Provider Radiology Diagnostic Radiology | DX: R05.9 Cough, unspecified (principal) | CPT/HCPCS: 71046 ==

== ENCOUNTER 2025-09-12 08:22 | Outpatient (REF) | payer MEDICARE, OTHER, SELFPAY ==
--- NOTE | ~2025-09-12 | CT_ITS ---
EXAMINATION: CT CHEST WITHOUT CONTRAST CLINICAL INFORMATION: Cough, unspecified. History of bladder cancer. COMPARISON: 03/18/2025 CT chest. 01/10/2025 CT chest. 01/23/2024 CT chest. TECHNIQUE: Multidetector volumetric CT imaging of the chest was done. Axial MIP volume rendering provided. Sagittal and coronal reformatted images were obtained. This CT examination was performed using dose optimization techniques as appropriate, variously including the following: *Automated exposure control *Adjustment of mA and/or kV according to patient size (this includes techniques or standardized protocols for targeted exams where dose is matched to indication/reason for exam; i.e. extremities or head) *Use of iterative reconstruction technique FINDINGS: LUNGS: Mild subpleural chronic reticulonodular changes are present in the superior segment of the right lower lobe, with an associated calcified granuloma, unchanged from prior exams and presumably representing mild chronic scarring from prior inflammatory abnormality. Similar mild chronic subpleural scarring is seen in the right lower lobe laterally and posteriorly. No additional abnormal opacities. Mild paraseptal and centrilobular emphysema. Small airways appear normal without thickening or bronchiectasis. There are a few scattered unchanged micronodules measuring up to 4 mm. There are a few scattered calcified granulomata. There is no new or enlarging pulmonary nodule identified. No effusion or pneumothorax. Central airways are widely patent. MEDIASTINUM: Right chest port is in place with tip terminating in the distal SVC, unchanged. The ascending aorta is again noted to be minimally aneurysmal at 4.3 cm. This is unchanged. There is mild atheromatous calcification and mild tortuosity. The pulmonary trunk is normal in size. The heart size is normal. No pericardial effusion. No mediastinal lymphadenopathy or mass is present. The esophagus is unremarkable. The thyroid is unremarkable. CORONARY ARTERY CALCIFICATION: Moderate degree present. AXILLA\CHEST WALL: No abnormal lymphadenopathy or mass. Right chest port in place. UPPER ABDOMEN: Imaged upper abdominal contents demonstrate cholecystectomy clips in place. Unenhanced liver is unremarkable. OSSEOUS STRUCTURES: No suspicious lytic or blastic bone lesion evident. Mild to moderate degenerative changes of the spine. Minimal chronic T5 superior endplate loss of height. CT/CT chest wo IV con IMPRESSION: 1. There is mild COPD, unchanged. No definite acute lung disease is present. 2. There are stable subtle foci of subpleural reticulonodular scarring in the superior segment right lower lobe and lateral basal right lower lobe, within the regions of previously seen inflammatory abnormality. 3. No small or large airway abnormality is evident. 4. There are a few stable scattered micronodules measuring up to 4 mm. There is no new or enlarging nodule present. 5. There is stable mild aneurysmal dilatation of the ascending aorta at 4.3 cm. 6. Additional stable ancillary findings as discussed in the body the report. Electronically signed by: Alexander Francis MD 09/12/2025 09:24 AM CITLALI
--- OUTSIDE RECORDS SUMMARY | 2025-09-12 08:25 | XMS_ITS | Clinical Summary ---
Author Organization [facility] Address [address] [place] [address] Phone Care Team Providers Care Business Development Agent Name Role Phone Morris Rizzo MD Primary Care Provider [phone] Encounters Date Type Department Care Team Description 06/19/2025 Telephone Lung Screening Program - [place] 299 [facility] [address] [place] [phone] Edelmira Morales MA from Last 3 Months [...] AM EDT Narrative 08/19/2024 6:31 AM EDT [facility] Diagnostic Imaging Department [address] [place] [address] Patient: JOSE LAMBERT/Age/Sex: 1960 - 63 - M Unit#: [id number] Location/Status: SPDICATLS/REG CLI Mnemonic/Ordering Site: [facility] Ordering Physician: SUYAPA WEST MD CT [...] Procedure Note Alpa Lorenzana MD - 08/24/2024 [facility] Diagnostic Imaging Department [address] [place] [id number] Patient: JOSE LAMBERT Chandler Shay./Age/Sex: 1960 - 63 - M Unit#: [id number] Location/Status: [facility] CLI Mnemonic/Ordering Site: [facility] Ordering Physician: SUYAPA WEST MD CT [...] Recently Relevant to Health Maintenance Insurance MEDICARE [facility] Care Teams Business Development Agent Relationship Specialty Start Date End Date Morris Rizzo MD [address] [place] [address] PCP - General Internal Medicine 05/27/22
--- OUTSIDE RECORDS SUMMARY | 2025-09-12 08:25 | XMS_ITS ---
Author Organization [facility] Address [address] [place] [address] Care Team Providers Care Cut Press Operator Name Role Phone Morris Rizzo Primary [...] TotalDLP 1,042 mGy 1,042 mGy 0 mGy [id number] 13.5 mSv 13.5 mSv 0 mSv CTDIvol Max 11.8 mGy 11.8 mGy 0 mGy CTDIvol Min 7.3 mGy 7.3 mGy 0 mGy
--- OUTSIDE RECORDS SUMMARY | 2025-09-12 08:25 | XMS_ITS | Clinical Summary ---
Author Organization [facility] Address [address] [facility] [address] [place], [place] [phone] Phone Care Team Providers Care Blasting Entryman Name Role Phone Unavailable Primary Care Provider [...] Insurance [place] [id number] MEDICARE PART A & B MEDICARE PART A & B MEDICARE PART A & B MEDICARE PART A & B MEDICARE PART A & B Additional Source Comments The information contained in this document represents components of the legal health record. It is not the complete legal health record.[facility]
--- OUTSIDE RECORDS SUMMARY | 2025-09-12 08:25 | XMS_ITS | Encounter Summary ---
Author Organization [facility] Address [address] [place] [address] Care Team Providers Care Vehicle Maintenance Supervisor Name Role Phone Morris Rizzo MD Primary Care Provider [phone] Encounter Details Date Type Department Care Team (Late st Contact Info) Description 01/28/2025 Lab Requisition [facility] - Main Lab 299 [facility] [place] [address] Alexys Puentes MD [address] [place] [address] Chronic kidney disease, unspecified; Hyperlipidemia, unspecified; Hypothyroidism, [...] LAB CHEMISTRY METHOD 01/28/2025 11:56 AM EDT [facility] Total Protein 5.5(L) 6.0 - 8.0 g/dL LAB CHEMISTRY METHOD 01/28/2025 11:56 AM [facility] Albumin 2.6(L) 3.2 - 5.0 g/dL LAB CHEMISTRY METHOD 01/28/2025 11:56 AM [facility] Total Bilirubin 0.9 0.0 - 1.4 mg/dL LAB CHEMISTRY METHOD 01/28/2025 11:56 AM T [facility] Blood Venous blood specimen / Unknown Venipuncture / Unknown 01/28/2025 8:36 AM EDT 01/28/2025 10:43 AM EDT Alexys Puentes MD LAB BLOOD ORDERABLES Final Result [facility] [address] [place] [address], * (ABNORMAL) Complete blood count (01/28/2025 8:36 AM EDT) WBC 5.1 4.8 - 10.8 K/[facility] LAB HEMETOLOGY METHOD 01/28/2025 12:04 PM [facility] RBC 3.50(L) 4.50 - 5.50 M/[facility] LAB HEMETOLOGY METHOD 01/28/2025 12:04 PM [facility] Hemoglobin 11.6(L) 13.5 - 17.5 g/dL LAB HEMETOLOGY METHOD 01/28/2025 12:04 PM [facility] Hematocrit 34.2(L) 42.0 - 54.0 % LAB HEMETOLOGY METHOD 01/28/2025 12:04 PM [facility] MCV 96.6 79.0 - 98.0 FL LAB HEMETOLOGY METHOD 01/28/2025 12:04 PM EDT [facility] MCH 32.8(H) 27.0 - 32.0 pcg LAB HEMETOLOGY METHOD 01/28/2025 12:04 PM EDT [facility] MCHC 33.9 32.0 - 37.0 g/dL LAB HEMETOLOGY METHOD 01/28/2025 12:04 PM EDT [facility] RDW 18.3(H) 11.0 - 15.0 % LAB HEMETOLOGY METHOD 01/28/2025 12:04 PM EDT [facility] Platelets 92(L) 130 - 400 K/mcL LAB HEMETOLOGY METHOD 01/28/2025 12:04 PM EDT [facility] Comment:reviewed by slide MPV 10.4 7.0 - 11.0 FL LAB HEMETOLOGY METHOD 01/28/2025 12:04 PM EDT [facility] NRBC 0.4 <1.0 % LAB HEMETOLOGY METHOD 01/28/2025 12:04 PM EDT [facility] NRBC Absolute 0.02 <0.10 K/mcL LAB HEMETOLOGY METHOD 01/28/2025 12:04 PM EDT [facility] Blood Venous blood specimen / Unknown Venipuncture / Unknown 01/28/2025 8:36 AM EDT 01/28/2025 10:43 AM EDT us Alexys Puentes MD LAB BLOOD ORDERABLES Final Result [facility] [address] [place] [address], documented in this encounter Visit Diagnoses Diagnosis Chronic kidney disease, unspecified Hyperlipidemia, unspecified Hypothyroidism, unspecified documented in this encounter Care Teams Vehicle Maintenance Supervisor Relationship Specialty Start Date End Date Morris Rizzo MD [address] [place] [address] PCP - General Internal Medicine 05/27/22 documented as of this encounter
--- OUTSIDE RECORDS SUMMARY | 2025-09-12 08:25 | XMS_ITS | Encounter Summary ---
Author Organization [facility] Address [address] [place] [address] Care Team Providers Care Sports Team Marketing Intern Name Role Phone Morris Rizzo MD Primary Care Provider [phone] Encounter Details Date Type Department Care Team (Late st Contact Info) Description 02/10/2025 Lab Requisition [facility] - Main Lab [address] [facility] [place] [address] Alexys Puentes MD [address] [place] [address] Chronic kidney disease, unspecified; Hyperlipidemia, unspecified; Thyrotoxicosis, [...] [facility] [address] [place] [address], * (ABNORMAL) Basic metabolic panel (02/11/2025 7:58 AM EDT) [facility] Sodium 143 133 - 145 mmol/L [...] [facility] [address] [place] [address], * (ABNORMAL) Complete blood count (02/11/2025 7:58 [...] [facility] [address] [place] [address], documented in this encounter Visit Diagnoses Diagnosis Chronic kidney disease, unspecified Hyperlipidemia, unspecified Thyrotoxicosis, unspecified without thyrotoxic crisis or storm Disorder of thyroid, unspecified documented in this encounter Care Teams Sports Team Marketing Intern Relationship Specialty Start Date End Date Morris Rizzo MD [address] [place] [address] Drive [address] [place] [address] PCP - General Internal Medicine 05/27/22 documented as of this encounter
--- OUTSIDE RECORDS SUMMARY | 2025-09-12 08:25 | XMS_ITS | Encounter Summary ---
Author Organization [facility] Address [address] [place] [address] Care Team Providers Care Developing Machine Tender Name Role Phone Morris Rizzo MD Primary Care Provider [phone] Encounter Details Date Type Department Care Team (Late st Contact Info) Description 02/17/2025 Lab Requisition [facility] - Main Lab 299 [facility] [place] [address] Alexys Puentes MD [address] [place] [address] Chronic kidney disease, unspecified; Hyperlipidemia, unspecified; Thyrotoxicosis, [...] Result [facility] [address] [place] [address], * (ABNORMAL) Complete blood count (02/18/2025 6:52 [...] LAB NRBC Absolute 0.04 <0.10 K/mcL [facility] METHOD 02/18/2025 10:[address] [facility] Blood Venous blood specimen / Unknown Venipuncture / Unknown 02/18/2025 6:52 AM EDT 02/18/2025 10:37 AM EDT us Alexys Puentes MD LAB BLOOD ORDERABLES Final Result [facility] [address] [place] [address], documented in this encounter Visit Diagnoses Diagnosis Chronic kidney disease, unspecified Hyperlipidemia, unspecified Thyrotoxicosis, unspecified without thyrotoxic crisis or storm documented in this encounter Care Teams Developing Machine Tender Relationship Specialty Start Date End Date Morris Rizzo MD [address] [place] [address] PCP - General Internal Medicine 05/27/22 documented as of this encounter
--- OUTSIDE RECORDS SUMMARY | 2025-09-12 08:25 | XMS_ITS | Encounter Summary ---
Author Organization [facility] Address [address] [place] [address] Care Team Providers Care Child Care Attendant School Name Role Phone Morris Rizzo MD Primary Care Provider [phone] Encounter Details Date Type Department Care Team (Late st Contact Info) Description 02/03/2025 Lab Requisition [facility] - Main Lab 299 [facility] [place] [address] Alexys Puentes MD [address] [place] [address] Chronic kidney disease, unspecified; Hyperlipidemia, unspecified; Thyrotoxicosis, [...] g/dL LAB CHEMISTRY METHOD [facility] Albumin 2.6(L) 3.2 - 5.0 g/dL LAB CHEMISTRY METHOD 02/04/2025 12:03 PM EDT [facility] Total Bilirubin 0.8 0.0 [...] Puentes MD LAB BLOOD ORDERABLES Final Result [facility] [address] [place], [place] [address] [phone] * (ABNORMAL) Basic metabolic panel (02/04/2025 8:05 [...] Puentes MD LAB BLOOD ORDERABLES Final Result [facility] [address] [place] [address], [place] [phone] * (ABNORMAL) Complete blood count (02/04/2025 8:05 AM EDT) WBC 4.8 4.8 - 10.8 K/mcL LAB HEMETOLOGY METHOD 02/04/2025 11:16 AM EDT [facility] RBC 3.10(L) 4.50 - [...] LAB HEMETOLOGY METHOD 02/04/2025 11:16 AM EDT [facility] MPV 10.3 7.0 - 11.0 FL LAB HEMETOLOGY METHOD 02/04/2025 11:16 AM EDT [facility] NRBC 0.6 <1.0 % LAB HEMETOLOG METHOD 02/04/2025 11:16 AM EDT [facility] NRBC Absolute 0.03 <0.10 K/mcL LAB HEMETOLOGY METHOD 02/04/2025 11:16 AM EDT [facility] Blood Venous blood specimen / Unknown Venipuncture / Unknown 02/04/2025 8:05 AM EDT 02/04/2025 10:03 AM EDT us Alexys Puentes MD LAB BLOOD ORDERABLES Final Result [facility] [address] [place] [address], documented in this encounter Visit Diagnoses Diagnosis Chronic kidney disease, unspecified Hyperlipidemia, unspecified Thyrotoxicosis, unspecified without thyrotoxic crisis or storm documented in this encounter Care Teams Child Care Attendant School Relationship Specialty Start Date End Date Morris Rizzo MD [address] [place] [address] PCP - General Internal Medicine 05/27/22 documented as of this encounter
--- OUTSIDE RECORDS SUMMARY | 2025-09-12 08:25 | XMS_ITS | Clinical Summary ---
Author Organization [facility] Address [address] [place] [address] Care Team Providers Care Plug Assembler Name Role Phone Morris Rizzo Primary Care Provider [phone] Allergies No known active allergies Medications atorvastatin [...] Cessation:Counseling Given: Not Answered Comments:On and off [id number] smoking, at most 1 PPD Alcohol Use [...] 2025 3, 08/10/2022, 10/06/2021, Additional history exists COVID-19 Vaccine (2024-11 6 season) 2025 08/03/2023, 08/10/2022, 10/06/2021, Additional history exists RSV Vaccine (60+ years old a nd patients) Completed 08/03/2023 Procedures * Due to [place] [employer] law, this organization might not be sharing negative HIV tests. Procedure Name Priority Date/Time Associated Diagnosis Comments AMB EXTERNAL CT CHEST, OUTSI DE RESULT 01/23/2024 from Last 3 Months or Most Recently Relevant to Health Maintenance Results * Due to [place] [employer] law, this organization might not be sharing negative HIV tests. * AMB EXTERNAL CT CHEST, OUTSIDE RESULT (01/23/2024) 01/23/2024 us [facility] AMB EXTERNAL RESULT PROCEDURE S Final Result from Last 3 Months or Most Recently Relevant to Health Maintenance Insurance MEDICARE [facility] [employer] Advance Directives Documents on File Type Date Recorded Patient Upholsterer Helper [facility] Proxy 05/27/2024 7:26 AM Care Teams Plug Assembler Relationship Specialty Start Date End Date Morris Rizzo [address] [place] [address] [place] [address] PCP - General Internal Medicine 01/09/24
--- OUTSIDE RECORDS SUMMARY | 2025-09-12 08:25 | XMS_ITS | Patient Health Record ---
Author Organization [facility] Address [address] [place] [address] Care Team Providers Care Bottle Capper Name Role Phone Morris Rizzo MD Primary Care Provider Unavaila Jose Doty Unavailable [phone] Eamon MCALLISTER, Zamzam Unavailable Unavailable Reason For Referral No Information Medications Medication SIG (Take, Route, Frequency, Duration) Notes Start Date End Date Status Atorvastatin Calcium 20 MG Tablet 1 tablet Orally Once a day Active Vitamin D3 1000 UNIT Tablet 1 tablet Ora lly Once a day Active Immunizations Vaccine Route Administration Date Status Comme nts Influenza Unknown 09/05/2018 Administered Social History Tobacco Use: Social History Observation Description Date Details (start date - stop date) Former Smoker NA - NA Social History Drugs/Alcohol: Social Info Question Answer Notes Alcohol Screen Did you have a drink containing alcohol in the past year? Yes How often did you have a drink containing alcohol in the past year? Monthly or less (1 point) How many drinks did you have on a typical day when you were drinking in the past year? 1 or 2 drinks (0 point) How often did you have 6 or more drinks on one occasion in the past year? Never (0 point) Points 1 Interpretation Negative Tobacco Use: Social Info Question Answer Notes Tobacco Use/Smoking Patient is a former smoker How long has it been since you last smoked? 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; no sig alcohol Nonsmoker since 2016; no sig alcohol Problems Problem Type SNOMED Code ICD Code Onset Dates Problem Status W/U Status Risk Notes Problem Colon cancer screening (135697804) Colon cancer screening (Z12.11) Active confirmed Problem Epigastric pain (96546365) Epigastric abdominal pain (R10.13) Active confirmed Problem Screening for malignant neoplasm of colon (099890522) Encounter for screening for malignant neoplasm of colon (Z12.11) Active confirmed Problem Preprocedural examination (053701469349835) Preprocedural examination (Z01.818) Active confirmed Plan Of Treatment Future Test Test Name Order Date UPPER GI ENDOSCOPY 08/23/2017 COLONOSCOPY 04/10/2019 COLONOSCOPY 04/26/2024 Insurance Providers Payer Name Payer Address Payer Phone Subscriber Number Group Number Insured Name Patient Relationship to Insured Coverage Start Date Coverage End Date MEDICARE OF [place] [address] [place] [address] [id number] JOSE CUBA Self - patient is the insured Adility [address] [place] [id number] JOSE CUBA Self - patient is the insured Medical (General) History Medical History History ICD Code Denies [place],DM,CVA,Lung disease,renal dise ase Hyperlipidemia Screening colonoscopy in Mar with Dr. Johansen revealed only hyperplastic polyps. EGD in 08/2017-small HH, normal duodenal and gastric biopsies Surgical History Surgery Date(Month/Year) Lap cholecystectomy--acalculous cholecys titis-Dr. Knutson 05/2017 Finger- infection drained 1969
--- OUTSIDE RECORDS SUMMARY | 2025-09-12 08:25 | XMS_ITS | Encounter Summary ---
Author Organization [facility] Address [address] [place] [address] Care Team Providers Care Senior Data Modeler Name Role Phone Morris Rizzo Primary Care Provider [phone] Encounter Details Date Type Department Care Team (Late st Contact Info) Description 04/15/2024 Orders Only [facility] [address] [facility], 5th [place] [address] Shola Arroyo MD [address] [place] [address] Social History Tobacco Use Types Packs/Day Years [...] filedocumented in this encounter Care Teams Senior Data Modeler Relationship Specialty Start Date End Date Morris Rizzo [address] [place] [address] [place] [address] PCP - General Internal Medicine 01/09/24 documented as of this encounter
[2025-09-12 08:32] LABS: MANUAL DIFF FLAG NO
[2025-09-12 08:36] LABS: Hematocrit 37.3 % (42.0-52.0); Hemoglobin 12.2 g/dl (14.0-18.0); Imm Gran Abs Auto 0.02 X10*3/uL (0.00-0.03); Imm Gran Pct Auto 0.4 % (0.0-0.4); Lymphocytes Absolute Auto 1.6 X10*3/uL (1.2-4.9); Mean Corpuscular HGB Conc 32.7 g/dl (31.0-36.0); Mean Corpuscular Hemoglobin 31.4 pg (27.0-33.0); Mean Corpuscular Volume 96.1 fL (80.0-98.0); NRBC Abs Auto 0.000 X10*3/uL (0.0-0.012); NRBC Pct Auto 0.0 /100WBC (0.0-0.2); Platelet Count 164 X10*3/uL (160-400); Red Blood Count 3.88 X10*6/uL (4.60-5.80); White Blood Count 5.0 X10*3/uL (4.8-10.8)
[2025-09-12 08:50] LABS: Alanine Aminotransferase 19 U/L (0-40); Albumin Level 4.2 g/dL (3.5-5.0); Alkaline Phosphatase 105 U/L (39-117); Anion Gap 13 (12-20); Aspartate Amino Transferase 38 U/L (5-37); Blood Urea Nitrogen 31 mg/dL (9-16); Calcium 9.7 mg/dL (8.4-10.2); Carbon Dioxide 24 mmol/L (22-29); Chloride 107 mmol/L (96-108); Estimated Glomerular Filt Rate 37; Magnesium 1.8 mg/dL (1.6-2.6); Potassium 4.8 mmol/L (3.3-5.1); Sodium 139 mmol/L (135-145); Total Protein 7.0 g/dL (6.5-8.0)
== END 2025-09-12 08:23 | disposition home or self-care (01) ==
LOC: HO.CT 08:22
PROVIDERS: Absent Provider Internal Medicine; Visit Provider Nurse Practitioner Family
DX: C67.9 Malignant neoplasm of bladder, unspecified (principal); R05.9 Cough, unspecified
CPT/HCPCS: 36415; 71250; 80053; 83735; 85025

== ENCOUNTER → 2025-09-12 08:33 | Outpatient (BNV) | payer MEDICARE, OTHER, SELFPAY | PROVIDERS: Absent Provider Internal Medicine; Visit Provider Radiology Diagnostic Radiology | DX: J44.9 Chronic obstructive pulmonary disease, unspecified (principal); I77.810 Thoracic aortic ectasia; R91.8 Other nonspecific abnormal finding of lung field | CPT/HCPCS: 71250 ==

== ENCOUNTER 2025-09-26 06:10 | Outpatient (REF) | payer MEDICARE, OTHER, SELFPAY ==
--- OUTSIDE RECORDS SUMMARY | 2025-09-26 06:14 | XMS_ITS | Patient Health Record ---
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 alcohol Nonsmoker since 2016; no sig alcohol Problems Problem Type SNOMED Code ICD Code Onset Dates Problem Status W/U Status Risk Notes Problem Colon cancer screening (133642975) Colon cancer screening (Z12.11) Active confirmed Problem Epigastric pain (77689292) Epigastric abdominal pain (R10.13) Active confirmed Problem Screening for malignant neoplasm of colon (802556230) Encounter for screening for malignant neoplasm of colon (Z12.11) Active confirmed Problem Preprocedural examination (948972909457948) Preprocedural examination (Z01.818) Active confirmed Plan Of Treatment Future Test Test Name Order Date UPPER GI ENDOSCOPY 08/23/2017 COLONOSCOPY 04/10/2019 COLONOSCOPY 04/26/2024 Insurance Providers Payer Name Payer Address Payer Phone Subscriber Number Group Number Insured Name Patient Relationship to Insured Coverage Start Date Coverage End Date MEDICARE OF [place] [address] [facility] [place] [address] [id number] JOSE CUBA Self - patient is the insured Attender [address] [place] [id number] JOSE CUBA Self - patient is the insured Medical (General) History Medical History History ICD Code Denies [place],DM,CVA,Lung disease,renal dise ase Hyperlipidemia Screening colonoscopy in Mar with Dr. Johansen revealed only hyperplastic polyps. EGD in 08/2017-small HH, normal duodenal and gastric biopsies Surgical History Surgery Date(Month/Year) Lap cholecystectomy--acalculous cholecys titis-Dr. Knutson 05/2017 Finger- infection drained 1969
--- OUTSIDE RECORDS SUMMARY | 2025-09-26 06:14 | XMS_ITS | Clinical Summary ---
Author Organization [facility] Address [address] [facility] [address] [place], [place] [address] Phone Care Team Providers Care Racing Mechanic Name Role Phone Unavailable Primary Care Provider [...] [place] [id number] MEDICARE PART A & B MEDICARE PART A & B MEDICARE PART A & B MEDICARE PART A & B MEDICARE PART A & B Additional Source Comments The information contained in this document represents components of the legal health record. It is not the complete legal health record.[facility]
--- OUTSIDE RECORDS SUMMARY | 2025-09-26 06:14 | XMS_ITS | Encounter Summary ---
Author Organization [facility] Address [address] [place] [address] Care Team Providers Care Seasonal Driver Name Role Phone Morris Rizzo MD Primary Care Provider [phone] Encounter Details Date Type Department Care Team (Late st Contact Info) Description 01/28/2025 Lab Requisition [facility] - Main Lab 299 [facility] [place] [place] [address] Alexys Puentes MD [address] [place] [address] Chronic kidney disease, unspecified; Hyperlipidemia, unspecified; Hypothyroidism, [...] mmol/L LAB CHEMISTRY METHOD 01/28/2025 11:56 AM [facility] Potassium 4.0 3.5 - 5.5 mmol/L LAB CHEMISTRY METHOD 01/28/2025 11:56 AM [facility] Chloride 101 96 - 110 mmol/L LAB CHEMISTRY METHOD 01/28/2025 11:56 AM [facility] CO2 27 21 - 32 mmol/L LAB CHEMISTRY METHOD 01/28/2025 11:56 AM [facility] Anion Gap 7 3 - 11 LAB CHEMISTRY METHOD 01/28/2025 11:56 AM [facility] Glucose 87 70 - 100 mg/dL LAB CHEMISTRY METHOD 01/28/2025 11:56 AM [facility] BUN 44(H) 5 - 25 mg/dL LAB CHEMISTRY METHOD 01/28/2025 11:56 AM [facility] Creatinine 1.39(H) 0.70 - 1.30 mg/dL LAB CHEMISTRY METHOD 01/28/2025 11:56 AM [facility] eGFR 56(L) >=60 mL/min/1. 73m2 LAB CHEMISTRY METHOD 01/28/2025 11:56 AM [facility] Comment:Calculation based on the Chronic Kidney Disease Epidemiology Collaboration (CKD-EPI) equation refit without adjustment for race. BUN/Creatinine Ratio 31.7 LAB CHEMISTRY METHOD 01/28/2025 11:56 AM [facility] Calcium 8.8 8.5 - 10.5 mg/dL LAB CHEMISTRY METHOD 01/28/2025 11:56 AM [facility] AST (SGOT) 39 10 - 42 unit/L LAB CHEMISTRY METHOD 01/28/2025 11:56 AM [facility] ALT (SGPT) 105(H) 10 - 60 unit/L LAB CHEMISTRY METHOD 01/28/2025 11:56 AM [facility] Alkaline Phosphatase 147(H) 42 - 121 unit/L LAB CHEMISTRY METHOD 01/28/2025 11:56 AM EDT [facility] Total Protein 5.5(L) 6.0 - 8.0 g/dL LAB CHEMISTRY METHOD 01/28/2025 11:56 AM [facility] Albumin 2.6(L) 3.2 - 5.0 g/dL LAB CHEMISTRY METHOD 01/28/2025 11:56 AM [facility] Total Bilirubin 0.9 0.0 - 1.4 mg/dL LAB CHEMISTRY METHOD 01/28/2025 11:56 AM T [facility] Blood Venous blood specimen / Unknown Venipuncture / Unknown 01/28/2025 8:36 AM EDT 01/28/2025 10:43 AM EDT Alexys Puentes MD LAB BLOOD ORDERABLES Final Result [facility] [address] [place] [address], * (ABNORMAL) Complete blood count (01/28/2025 8:36 AM EDT) WBC 5.1 4.8 - 10.8 K/[facility] LAB HEMETOLOGY METHOD 01/28/2025 12:04 PM [facility] RBC 3.50(L) 4.50 - 5.50 M/[facility] LAB HEMETOLOGY METHOD 01/28/2025 12:04 PM [facility] Hemoglobin 11.6(L) 13.5 - 17.5 g/dL LAB HEMETOLOGY METHOD 01/28/2025 12:04 PM [facility] Hematocrit 34.2(L) 42.0 - 54.0 % LAB HEMETOLOGY METHOD 01/28/2025 12:04 PM [facility] MCV 96.6 79.0 [...] Final Result [facility] [address] [place] [address], documented in this encounter Visit Diagnoses Diagnosis Chronic kidney disease, unspecified Hyperlipidemia, unspecified Hypothyroidism, unspecified documented in this encounter Care Teams Seasonal Driver Relationship Specialty Start Date End Date Morris Rizzo MD [address] [place] [address] PCP - General Internal Medicine 05/27/22 documented as of this encounter
--- OUTSIDE RECORDS SUMMARY | 2025-09-26 06:14 | XMS_ITS | Encounter Summary ---
Author Organization [facility] Address [address] [place] [address] Care Team Providers Care Abstract Searcher Name Role Phone Morris Rizzo MD Primary Care Provider [phone] Encounter Details Date Type Department Care Team (Late st Contact Info) Description 02/17/2025 Lab Requisition [facility] - Main Lab [address] [facility] [place] [address] Alexys Puentes MD [address] [place] [address] Chronic kidney disease, unspecified; Hyperlipidemia, unspecified; Thyrotoxicosis, [...] Final Result [facility] [address] [place] [address], * (ABNORMAL) Complete blood count (02/18/2025 6:52 AM EDT) WBC 4.2(L) 4.8 - 10.8 K/mcL LAB HEMETOLOGY METHOD 02/18/2025 10:58 AM EDT [facility] RBC 2.80(L) 4.50 - 5.50 M/mcL LAB HEMETOLOGY METHOD 02/18/2025 10:58 AM EDT [facility] Hemoglobin 9.4(L) 13.5 - 17.5 g/dL LAB HEMETOLOGY METHOD 02/18/2025 10:58 AM EDT [facility] Hematocrit 29.1(L) 42.0 - 54.0 % LAB HEMETOLOGY METHOD 02/18/2025 10:58 AM EDT [facility] MCV 103.9(H) 79.0 - 98.0 FL LAB HEMETOLOGY METHOD 02/18/2025 10:58 AM EDT [facility] MCH 33.6(H) 27.0 - 32.0 pcg LAB HEMETOLOGY METHOD 02/18/2025 10:58 AM EDT [facility] MCHC 32.3 32.0 - 37.0 g/dL LAB HEMETOLOGY METHOD 02/18/2025 10:58 AM EDT [facility] RDW 20.8(H) 11.0 - 15.0 % LAB HEMETOLOGY METHOD 02/18/2025 10:58 AM EDT [facility] Platelets 206 130 - 400 K/mcL LAB HEMETOLOGY METHOD 02/18/2025 10:58 AM EDT [facility] MPV 9.7 7.0 - 11.0 FL LAB HEMETOLOGY METHOD 02/18/2025 10:58 AM EDT [facility] NRBC 1.0(H) <1.0 % LAB HEMETOLOGY METHOD 02/18/2025 10:58 AM EDT [facility] NRBC Absolute 0.04 <0.10 K/mcL [facility] 02/18/2025 10:58 AM EDT [facility] Blood Venous blood specimen / Unknown Venipuncture / Unknown 02/18/2025 6:52 AM EDT 02/18/2025 10:37 AM EDT us Alexys Puentes MD LAB BLOOD ORDERABLES Final Result [facility] [address] [place] [address], documented in this encounter Visit Diagnoses Diagnosis Chronic kidney disease, unspecified Hyperlipidemia, unspecified Thyrotoxicosis, unspecified without thyrotoxic crisis or storm documented in this encounter Care Teams Abstract Searcher Relationship Specialty Start Date End Date Morris Rizzo MD [address] [place] [address] PCP - General Internal Medicine 05/27/22 documented as of this encounter
--- OUTSIDE RECORDS SUMMARY | 2025-09-26 06:14 | XMS_ITS | Encounter Summary ---
Author Organization [facility] Address [address] [place] [address] Care Team Providers Care Manager Bank Name Role Phone Morris Rizzo MD Primary Care Provider [phone] Encounter Details Date Type Department Care Team (Late st Contact Info) Description 02/03/2025 Lab Requisition [facility] - Main Lab [address] [facility] [place] [address] Alexys Puentes MD [address] [place] [address] Chronic kidney disease, unspecified; Hyperlipidemia, unspecified; Thyrotoxicosis, [...] g/dL LAB CHEMISTRY [facility] Albumin 2.6(L) 3.2 - 5.0 g/dL LAB CHEMISTRY METHOD 02/04/2025 12:03 PM EDT [facility] Total Bilirubin 0.8 [...] Result [facility] [address] [place], [place] [address] [phone] * (ABNORMAL) Basic metabolic panel (02/04/2025 8:05 [...] Result [facility] [address] [place] [address], [place] [phone] * (ABNORMAL) Complete blood count (02/04/2025 8:05 AM EDT) WBC 4.8 4.8 - 10.8 K/mcL LAB HEMETOLOGY METHOD 02/04/2025 11:16 AM EDT [facility] RBC 3.10(L) 4.50 [...] LAB HEMETOLOGY METHOD 02/04/2025 11:16 AM EDT [facility] MPV 10.3 7.0 - 11.0 FL LAB HEMETOLOGY METHOD 02/04/2025 11:16 AM EDT [facility] NRBC 0.6 <1.0 % LAB HEMETOLOG METHOD 02/04/2025 11:16 AM EDT [facility] NRBC Absolute 0.03 <0.10 K/mcL LAB HEMETOLOGY METHOD 02/04/2025 11:16 AM EDT [facility] Blood Venous blood specimen / Unknown Venipuncture / Unknown 02/04/2025 8:05 AM EDT 02/04/2025 10:03 AM EDT us Alexys Puentes MD LAB BLOOD ORDERABLES Final Result [facility] [address] [place] [address], documented in this encounter Visit Diagnoses Diagnosis Chronic kidney disease, unspecified Hyperlipidemia, unspecified Thyrotoxicosis, unspecified without thyrotoxic crisis or storm documented in this encounter Care Teams Manager Bank Relationship Specialty Start Date End Date Morris Rizzo MD [address] [place] [address] PCP - General Internal Medicine 05/27/22 documented as of this encounter
--- OUTSIDE RECORDS SUMMARY | 2025-09-26 06:14 | XMS_ITS | Clinical Summary ---
Author Organization [facility] Address [address] [place] [address] Care Team Providers Care Lavender Farm Worker Name Role Phone Morris Rizzo Primary Care Provider [phone] Allergies No known active allergies Medications atorvastatin [...] Cessation:Counseling Given: Not Answered Comments:On and off [id number] smoking, at most 1 PPD Alcohol Use [...] patients) Completed 08/03/2023 Procedures * Due to [place] [employer] law, this organization might not be sharing negative HIV tests. Procedure Name Priority Date/Time Associated Diagnosis Comments AMB EXTERNAL CT CHEST, OUTSI DE RESULT 01/23/2024 from Last 3 Months or Most Recently Relevant to Health Maintenance Results * Due to [place] [employer] law, this organization might not be sharing negative HIV tests. * AMB EXTERNAL CT CHEST, OUTSIDE RESULT (01/23/2024) 01/23/2024 us Onbase [facility] AMB EXTERNAL RESULT PROCEDURE S Final Result from Last 3 Months or Most Recently Relevant to Health Maintenance Insurance MEDICARE [facility] [employer] Advance Directives Documents on File Type Date Recorded Patient Breaker [facility] Proxy 05/27/2024 7:26 AM Care Teams Lavender Farm Worker Relationship Specialty Start Date End Date Morris Rizzo [address] [place] [address] [place] [address] PCP - General Internal Medicine 01/09/24
--- OUTSIDE RECORDS SUMMARY | 2025-09-26 06:14 | XMS_ITS | Encounter Summary ---
Author Organization [facility] Address [address] [place] [address] Care Team Providers Care Audit Practice Intern Name Role Phone Morris Rizzo MD Primary Care Provider [phone] Encounter Details Date Type Department Care Team (Late st Contact Info) Description 02/10/2025 Lab Requisition [facility] - Main Lab 299 [facility] [place] [address] Alexys Puentes MD [address] [place] [address] Chronic kidney disease, unspecified; Hyperlipidemia, unspecified; Thyrotoxicosis, [...] ORDERABLES Final Result [facility] [address] [place] [address], * (ABNORMAL) Basic metabolic panel (02/11/2025 7:58 AM EDT) [facility] Sodium 143 133 - 145 mmol/L LAB [...] ORDERABLES Final Result [facility] [address] [place] [address], * (ABNORMAL) Complete blood count (02/11/2025 7:58 [...] Final Result [facility] [address] [place] [address], documented in this encounter Visit Diagnoses Diagnosis Chronic kidney disease, unspecified Hyperlipidemia, unspecified Thyrotoxicosis, unspecified without thyrotoxic crisis or storm Disorder of thyroid, unspecified documented in this encounter Care Teams Audit Practice Intern Relationship Specialty Start Date End Date Morris Rizzo MD [address] [place] [address] Drive [address] [place] [address] PCP - General Internal Medicine 05/27/22 documented as of this encounter
--- OUTSIDE RECORDS SUMMARY | 2025-09-26 06:14 | XMS_ITS | Clinical Summary ---
Author Organization [facility] Address [address] [place] [address] Phone Care Team Providers Care Scrap Preparer Name Role Phone Morris Rizzo MD Primary Care Provider [phone] Social History Tobacco Use Types Packs/Day Years [...] EDT Narrative 08/19/2024 6:31 AM EDT [facility] Diagnostic Imaging Department [address] [place] [address] Patient: JOSE LAMBERT Chandler Vickers/Age/Sex: 1960 - 63 - M Unit#: [id number] Location/Status: SPDICATLS/REG CLI Mnemonic/Ordering Site: [facility] Ordering Physician: SUYAPA WEST MD CT Lung [...] Note Alpa Lorenzana MD - 08/24/2024 [facility] Diagnostic Imaging Department [address] [place] [address] Patient: JOSE LAMBERT /Age/Sex: 1960 - 63 - M Unit#: [id number] Location/Status: SPDICATLS/REG CLI Mnemonic/Ordering Site: [facility] [place] Ordering Physician: SUYAPA WEST MD CT Lung [...] Recently Relevant to Health Maintenance Insurance MEDICARE [facility] Care Teams Scrap Preparer Relationship Specialty Start Date End Date Morris Rizzo MD [address] [facility] [address] [place] [address] PCP - General Internal Medicine 05/27/22
--- OUTSIDE RECORDS SUMMARY | 2025-09-26 06:14 | XMS_ITS ---
Author Organization [facility] Address [address] [place] [address] Care Team Providers Care Stock Mixer Name Role Phone Morris Rizzo Primary Care Provider [phone] Active Problems Problem Noted Date Diagnosed Date Hyperkalemia 05/30/2024 Malignant neoplasm of overlapping sites of bladd er 03/04/2024 Other hydronephrosis 03/04/2024 Current Treatment and Therapy Plans No current plan information found. Past Treatment and Therapy Plans No past plan information found. Lifetime Dose Tracking * Chemical Lifetime Dose Automatic Entry Manual Entr y TotalDLP 1,042 mGy 1,042 mGy 0 mGy [id number] 13.5 mSv 13.5 mSv 0 mSv CTDIvol Max 11.8 mGy 11.8 mGy 0 mGy CTDIvol Min 7.3 mGy 7.3 mGy 0 mGy
--- OUTSIDE RECORDS SUMMARY | 2025-09-26 06:14 | XMS_ITS | Encounter Summary ---
Author Organization [facility] Address [address] [place] [address] Care Team Providers Care Traveling Missionary Name Role Phone Morris Rizzo Primary Care Provider [phone] Encounter Details Date Type Department Care Team (Late st Contact Info) Description 04/15/2024 Orders Only [facility] [address] [facility], [address]th [place] [address] Shola Arroyo MD [address] [place] [address] Social History Tobacco Use Types Packs/Day Years [...] on filedocumented in this encounter Care Teams Traveling Missionary Relationship Specialty Start Date End Date Morris Rizzo [address] [place] [address] [place] [address] PCP - General Internal Medicine 01/09/24 documented as of this encounter
[2025-09-26 06:46] LABS: MANUAL DIFF FLAG NO
[2025-09-26 06:48] LABS: Hematocrit 37.6 % (42.0-52.0); Hemoglobin 12.2 g/dl (14.0-18.0); Imm Gran Abs Auto 0.02 X10*3/uL (0.00-0.03); Imm Gran Pct Auto 0.6 % (0.0-0.4); Lymphocytes Absolute Auto 1.0 X10*3/uL (1.2-4.9); Mean Corpuscular HGB Conc 32.4 g/dl (31.0-36.0); Mean Corpuscular Hemoglobin 31.4 pg (27.0-33.0); Mean Corpuscular Volume 96.9 fL (80.0-98.0); NRBC Abs Auto 0.000 X10*3/uL (0.0-0.012); NRBC Pct Auto 0.0 /100WBC (0.0-0.2); Platelet Count 162 X10*3/uL (160-400); Red Blood Count 3.88 X10*6/uL (4.60-5.80); White Blood Count 3.3 X10*3/uL (4.8-10.8)
[2025-09-26 07:23] LABS: Alanine Aminotransferase 17 U/L (0-40); Albumin Level 4.1 g/dL (3.5-5.0); Alkaline Phosphatase 107 U/L (39-117); Anion Gap 13 (12-20); Aspartate Amino Transferase 40 U/L (5-37); Blood Urea Nitrogen 45 mg/dL (9-16); Calcium 9.7 mg/dL (8.4-10.2); Carbon Dioxide 25 mmol/L (22-29); Chloride 107 mmol/L (96-108); Estimated Glomerular Filt Rate 32; Magnesium 1.9 mg/dL (1.6-2.6); Potassium 4.5 mmol/L (3.3-5.1); Sodium 140 mmol/L (135-145); Total Protein 6.9 g/dL (6.5-8.0)
== END 2025-09-26 06:11 | disposition home or self-care (01) ==
LOC: HO.LAB 06:10
PROVIDERS: Visit Provider Internal Medicine
DX: C67.9 Malignant neoplasm of bladder, unspecified (principal)
CPT/HCPCS: 36415; 80053; 83735; 85025

== ENCOUNTER 2025-10-02 10:16 | Outpatient (AMB) | payer MEDICARE, OTHER, SELFPAY ==
--- NOTE | 2025-10-02 10:19 | HO.NEPHOV_ITS ---
Vital Signs 10/02/25 10:20 Height 6 ft 2 in Weight 206 lb BMI 26.4 BP 90/46 L Blood Pressure Location Lt brachial Position Sitting Pulse 86 Pulse Source Pulse Oximeter Pulse Oximetry (%) 97 Oxygen Delivery Method Room Air Intake Visit Reasons: 4 MO FU See Wheeler Required: No Accompanied by: Self / Same As Patient Allergies No Known Allergies (No Known Allergies*) Allergy (Verified 10/02/25 10:23) Medication List - Last Reconciled 10/02/25 by Km Fgiueroa MD albuterol sulfate 90 mcg/actuation 2 puffs inhalation Q6H PRN apixaban (Eliquis) 2.5 mg PO BID atorvastatin 20 mg PO BEDTIME 90 days budesonide-formoterol 80-4.5 mcg/actuation (Symbicort) 2 puffs inhalation Q12H codeine-guaifenesin 10-100 mg/5 mL 5 - 10 mL PO BEDTIME PRN fluticasone propion-salmeterol 115-21 mcg/actuation (Advair HFA) 2 puffs inhalation Q12H hydrocortisone orally; Take 10 mg (1 tablet) in AM and 5 mg (half a tablet) in afternoon at 2 PM daily levothyroxine (Synthroid) 100 mcg PO DAILY metoprolol tartrate 25 mg PO BID 90 days needle (disp) 18 G (BD Regular Bevel [place]) As directed to draw hydrocortisone in case of emergency omeprazole 20 mg PO DAILY@0630 syringe with needle (BD Luer-Shiv Syringe) As directed to be used to inject hydrocortisone in case of emergency [walker As directed] [walker with wheels As directed] HPI Comments Details: History of Present Illness The patient is a 64 year old male presenting for a follow-up visit for management of his chronic kidney disease. He has a history of invasive bladder cancer diagnosed in November 2023, for which he has been treated with cisplatin and gemcitabine. He currently receives chemotherapy three times a month. History: GORDON- Creatinine peaked at 3.8. He was on Pembrolizumab and this was stopped. He was given IV hydration and discharged home since he was nonoliguric. Creatinine is decreased to 2.9. Resumed enfortumab vedotin since 10/2024. Repeat PET scan on 12/03/2024 showed no abnormal SUV activity, he is in remission. In the context of his bladder cancer, he has a nephrostomy, and the tubes were changed less than a month ago without any issues. His creatinine has been elevated, fluctuating between 2.0 and 3.0 mg/dL, with a peak of 3.2 in December, but it has since improved to 2.11. His other medical history includes a pulmonary embolism, for which he takes Eliquis. A chest CT in August showed mild COPD, and he uses an inhaler prescribed by a load test mechanic, which has helped reduce his coughing spasms. He has a history of vitamin A deficiency and anemia, with his hemoglobin recently stable at 12.2, an improvement from prior levels in the 9s and 10s. His blood pressure has been low, with a recent reading of 90/64 mmHg, but he has been asymptomatic, denying lightheadedness, headache, or nausea. His current medications include omeprazole, metoprolol, hydrocortisone, atenolol, and atorvastatin. Results - Labs: Recent creatinine was 2.11 mg/dL, which is stable and an improvement from previous levels as high as 3.2 mg/dL. - Labs: Hemoglobin was 12.2 g/dL, which is stable. - Labs: Last electrolytes were reported as okay. - Imaging: A chest CT scan in August revealed mild COPD. - Tests and Diagnostics: A pulmonary function test was performed. [facility] Medical History Pulmonary embolism Dry skin Dyspnea on exertion Left wrist pain Stiffness of left wrist joint Elevated serum creatinine Elevated blood pressure reading Hematuria Bladder mass History of immune checkpoint inhibitor therapy Hypophysitis Adrenal insufficiency Hypothyroidism Port-A-Cath in place (02/16/24) History of blood transfusion Bladder cancer Obesity (BMI 30-39.9) Pure hypercholesterolemia Hyperlipemia Carpal tunnel syndrome Surgical History Mass of left axilla (05/31/24) Hx of colonoscopy Hx of cystoscopy History of surgery History of hand surgery History of ankle surgery History of cholecystectomy Family History Father Multiple sclerosis, primary progressive Mother No problems noted. 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 Comfortable. HENT: Neck supple. Mucosa moist. Pulmonary: Lungs aeration equal. Mild COPD. No rales. Cardiology: Heart S1-S2 heard. No gallop. Abdomen: Soft. Non tender. Bowel sounds normal. Nephrostomy tube in place Neurologic: No involuntary movements. No myoclonus. Extremities: No edema. No rash. Vital Signs: Last Vital Signs Pulse 86 10/02/25 10:20 BP 90/46 L 10/02/25 10:20 Pulse Ox 97 10/02/25 10:20 Oxygen Delivery Method Room Air 10/02/25 10:20 BMI result Body Mass Index 26.4 Results Reviewed Results Reviewed: CT scan Aug 2025 CT/CT chest wo IV con IMPRESSION: 1. There is mild COPD, unchanged. No definite acute lung disease is present. 2. There are stable subtle foci of subpleural reticulonodular scarring in the superior segment right lower lobe and lateral basal right lower lobe, within the regions of previously seen inflammatory abnormality. 3. No small or large airway abnormality is evident. 4. There are a few stable scattered micronodules measuring up to 4 mm. There is no new or enlarging nodule present. 5. There is stable mild aneurysmal dilatation of the ascending aorta at 4.3 cm. 6. Additional stable ancillary findings as discussed in the body the report. Nephrology Results: Hgb, (14.0-18.0) 12.2 g/dl L 09/26/25 WBC, (4.8-10.8) 3.3 X10*3/uL L 09/26/25 Plt Count, (160-400) 162 X10*3/uL 09/26/25 Sodium, (135-145) 140 mmol/L 09/26/25 Potassium, (3.3-5.1) 4.5 mmol/L 09/26/25 Chloride, (96-108) 107 mmol/L 09/26/25 Carbon Dioxide, (22-29) 25 mmol/L 09/26/25 BUN, (9-16) 45 mg/dL H 09/26/25 Creatinine, (0.5-1.4) 2.11 mg/dL H 09/26/25 Calcium, (8.4-10.2) 9.7 mg/dL 09/26/25 Renal US 05/01/25 Assessment & Plan Assessment & Plan (1) GORDON (acute kidney injury): Code(s): N17.9 - Acute kidney failure, unspecified Category: Medical (2) Adrenal insufficiency: Code(s): E27.40 - Unspecified adrenocortical insufficiency Category: Medical (3) CKD stage 3b, GFR 30-44 ml/min: Code(s): N18.32 - Chronic kidney disease, stage 3b Category: Medical (4) Invasive carcinoma of urinary bladder: Code(s): C67.9 - Malignant neoplasm of bladder, unspecified Category: Medical Plan Plan 1. Chronic Kidney Disease - The patient's creatinine is stable at 2.11 mg/dL, showing improvement from previous highs. - Plan is to continue monitoring kidney function via frequent blood tests that are being done for his oncology treatment. - The patient was advised to maintain adequate hydration. - No changes will be made to his current medications. - The patient will follow up in the clinic in four months. 2. Invasive Bladder Cancer - Continue chemotherapy, which is administered three times a month. - Care will be coordinated with his oncologist, who will provide a referral for any significant changes in his lab work. 3. Hypotension - The patient's blood pressure was 90/64 mmHg, primarily related to adrenal insufficiency; Follow [facility] endocrinology - As the patient is asymptomatic, no changes will be made to his medications at this time. 4. Mild stable anemia Coding Level of Care Code Est Pt Level 4 (83488) Diagnoses GORDON (acute kidney injury) N17.9 Adrenal insufficiency E27.40 CKD stage 3b, GFR 30-44 ml/min N18.32 Invasive carcinoma of urinary bladder C67.9
[2025-10-02 10:20] VITALS: BP 90/46; PULSE 86; O2SAT 97; BMI 26.4
== END 2025-10-02 10:36 | disposition home or self-care (01) ==
LOC: HO.HKA 10:18
PROVIDERS: PCP Internal Medicine; Visit Provider Internal Medicine Hypertension Specialist
DX: N17.9 Acute kidney failure, unspecified (principal); E27.40 Unspecified adrenocortical insufficiency; N18.32 Chronic kidney disease, stage 3b; C67.9 Malignant neoplasm of bladder, unspecified
CPT/HCPCS: 99214

== ENCOUNTER → 2025-10-02 10:16 | Outpatient (BNVA) | payer MEDICARE, OTHER, SELFPAY | PROVIDERS: PCP Internal Medicine; Visit Provider Internal Medicine Hypertension Specialist | DX: N18.32 Chronic kidney disease, stage 3b (principal); E27.40 Unspecified adrenocortical insufficiency; N17.9 Acute kidney failure, unspecified; C67.0 Malignant neoplasm of trigone of bladder; I95.9 Hypotension, unspecified; D64.9 Anemia, unspecified | CPT/HCPCS: 99212 ==

== ENCOUNTER 2025-10-03 06:15 | Outpatient (REF) | payer MEDICARE, OTHER, SELFPAY ==
--- OUTSIDE RECORDS SUMMARY | 2025-10-03 06:17 | XMS_ITS | Encounter Summary ---
Author Organization [facility] Address [address] [place] [address] Care Team Providers Care Fry Cook Name Role Phone Morris Rizzo MD Primary Care Provider [phone] Encounter Details Date Type Department Care Team (Late st Contact Info) Description 02/10/2025 Lab Requisition [facility] - Main Lab [address] [facility] [place] [address] Alexys Puentes MD [address] [place] [address] Chronic kidney disease, unspecified; Hyperlipidemia, unspecified; Thyrotoxicosis, [...] free t3 (02/11/2025 7:58 AM EDT) Pathologist [facility] TSH 2.86 0.40 - 4.00 mcIU/mL LAB CHEMISTRY METHOD 02/11/2025 1:02 PM EDT [facility] Blood Venous blood specimen / Unknown Venipuncture / Unknown 02/11/2025 7:58 AM EDT 02/11/2025 9:08 AM EDT Alexys Puentes MD LAB BLOOD ORDERABLES Final Result [facility] [address] [place] [address], * (ABNORMAL) Basic metabolic panel (02/11/2025 7:58 AM EDT) [facility] Sodium 143 133 - 145 mmol/L LAB CHEMISTRY METHOD 02/11/2025 11:11 AM [facility] Potassium 4.4 3.5 - 5.5 mmol/L LAB CHEMISTRY METHOD 02/11/2025 11:11 AM [facility] Chloride 109 96 - 110 mmol/L LAB CHEMISTRY METHOD 02/11/2025 11:11 AM [facility] CO2 27 21 - 32 mmol/L LAB CHEMISTRY METHOD 02/11/2025 11:11 AM [facility] Anion Gap 7 3 - 11 LAB CHEMISTRY METHOD 02/11/2025 11:11 AM [facility] Glucose 89 70 - 100 mg/dL LAB CHEMISTRY METHOD 02/11/2025 11:11 AM [facility] BUN 31(H) 5 [...] mg/dL LAB CHEMISTRY METHOD 02/11/2025 11:11 AM [facility] Blood Venous blood specimen / Unknown Venipuncture / Unknown 02/11/2025 7:58 AM EDT 02/11/2025 9:08 AM EDT us Alexys Puentes MD LAB BLOOD ORDERABLES Final Result [facility] [address] [place] [address], * (ABNORMAL) Complete blood count (02/11/2025 7:58 [...] Result [facility] [address] [place] [address], documented in this encounter Visit Diagnoses Diagnosis Chronic kidney disease, unspecified Hyperlipidemia, unspecified Thyrotoxicosis, unspecified without thyrotoxic crisis or storm Disorder of thyroid, unspecified documented in this encounter Care Teams Fry Cook Relationship Specialty Start Date End Date Morris Rizzo MD [address] [place] [address] Drive [address] [place] [address] PCP - General Internal Medicine 05/27/22 documented as of this encounter
--- OUTSIDE RECORDS SUMMARY | 2025-10-03 06:17 | XMS_ITS | Clinical Summary ---
Author Organization [facility] Address [address] [place] [address] Phone Care Team Providers Care Bowling Ball Grader Name Role Phone Morris Rizzo MD Primary Care Provider [phone] Social History Tobacco Use Types Packs/Day Years [...] [facility] Diagnostic Imaging Department [address] [place] [address] Patient: JOSE LAMBERT Chandler Vickers/Age/Sex: 1960 - 63 - M Unit#: [id number] Location/Status: SPDICATLS/REG CLI Mnemonic[facility] [...] 08/24/2024 [facility] Diagnostic Imaging Department [address] [place] [address] Patient: JOSE LAMBERT /Age/Sex: 1960 - 63 - M Unit#: [id number] Location/Status: SPDICATLS/REG CLI Mnemonic/Ordering Site: [facility] [place] Ordering Physician: SUYAPA WEST MD CT Lung [...] Recently Relevant to Health Maintenance Insurance MEDICARE [facility] Care Teams Bowling Ball Grader Relationship Specialty Start Date End Date Morris Rizzo MD [address] [facility] [address] [place] [address] PCP - General Internal Medicine 05/27/22
--- OUTSIDE RECORDS SUMMARY | 2025-10-03 06:17 | XMS_ITS | Encounter Summary ---
Author Organization [facility] Address [address] [place] [address] Care Team Providers Care Pharmacy Technologist Name Role Phone Morris Rizzo MD Primary Care Provider [phone] Encounter Details Date Type Department Care Team (Late st Contact Info) Description 02/17/2025 Lab Requisition [facility] - Main Lab [address] [facility] [place] [address] Alexys Puentes MD [address] [place] [address] Chronic kidney disease, unspecified; Hyperlipidemia, unspecified; Thyrotoxicosis, [...] mmol/L LAB CHEMISTRY METHOD 02/18/2025 11:25 AM [facility] Potassium 3.7 3.5 - 5.5 mmol/L LAB CHEMISTRY METHOD 02/18/2025 11:25 AM [facility] Chloride 107 96 - 110 mmol/L LAB CHEMISTRY METHOD 02/18/2025 11:25 AM [facility] CO2 26 21 - 32 mmol/L LAB CHEMISTRY METHOD 02/18/2025 11:25 AM [facility] Anion Gap 5 3 - 11 LAB CHEMISTRY METHOD 02/18/2025 11:25 AM [facility] Glucose 85 70 - 100 mg/dL LAB CHEMISTRY METHOD 02/18/2025 11:25 AM [facility] BUN 29(H) 5 - 25 mg/dL LAB CHEMISTRY METHOD 02/18/2025 11:25 AM [facility] Creatinine 1.67(H) 0.70 - 1.30 mg/dL LAB CHEMISTRY METHOD 02/18/2025 11:25 AM [facility] eGFR 45(L) >=60 mL/min/1. 73m2 LAB CHEMISTRY METHOD 02/18/2025 11:25 AM [facility] Comment:Calculation based on the Chronic Kidney Disease Epidemiology Collaboration (CKD-EPI) equation refit without adjustment for race. BUN/Creatinine Ratio 17.4 LAB CHEMISTRY METHOD 02/18/2025 11:25 AM [facility] Calcium 8.7 8.5 - 10.5 mg/dL LAB CHEMISTRY METHOD 02/18/2025 11:25 AM [facility] Blood Venous blood specimen / Unknown Venipuncture / Unknown 02/18/2025 6:52 AM EDT 02/18/2025 10:38 AM EDT Alexys Puentes MD LAB BLOOD ORDERABLES Final Result [facility] [address] [place] [address], * (ABNORMAL) Complete blood count (02/18/2025 6:52 AM EDT) WBC 4.2(L) 4.8 - 10.8 K/mcL LAB HEMETOLOGY METHOD 02/18/2025 10:58 AM EDT [facility] RBC 2.80(L) 4.50 - 5.50 M/mcL LAB HEMETOLOGY METHOD 02/18/2025 10:58 AM EDT [facility] Hemoglobin 9.4(L) 13.5 - 17.5 g/dL LAB HEMETOLOGY METHOD 02/18/2025 10:58 AM EDT [facility] Hematocrit 29.1(L) 42.0 - 54.0 % LAB HEMETOLOGY METHOD 02/18/2025 10:58 AM EDT [facility] MCV 103.9(H) 79.0 - 98.0 FL LAB HEMETOLOGY METHOD 02/18/2025 10:58 AM EDT [facility] MCH 33.6(H) 27.0 - 32.0 pcg LAB HEMETOLOGY METHOD 02/18/2025 10:58 AM EDT [facility] MCHC 32.3 32.0 - 37.0 g/dL LAB HEMETOLOGY METHOD 02/18/2025 10:58 AM EDT [facility] RDW 20.8(H) 11.0 - 15.0 % LAB HEMETOLOGY METHOD 02/18/2025 10:58 AM EDT [facility] Platelets 206 130 - 400 K/mcL LAB HEMETOLOGY METHOD 02/18/2025 10:58 AM EDT [facility] MPV 9.7 7.0 - 11.0 FL LAB HEMETOLOGY METHOD 02/18/2025 10:58 AM EDT [facility] NRBC 1.0(H) <1.0 % LAB HEMETOLOGY METHOD 02/18/2025 10:58 AM EDT [facility] NRBC Absolute 0.04 <0.10 K/mcL [facility] 02/18/2025 10:58 AM EDT [facility] Blood Venous blood specimen / Unknown Venipuncture / Unknown 02/18/2025 6:52 AM EDT 02/18/2025 10:37 AM EDT us Alexys Puentes MD LAB BLOOD ORDERABLES Final Result [facility] [address] [place] [address], documented in this encounter Visit Diagnoses Diagnosis Chronic kidney disease, unspecified Hyperlipidemia, unspecified Thyrotoxicosis, unspecified without thyrotoxic crisis or storm documented in this encounter Care Teams Pharmacy Technologist Relationship Specialty Start Date End Date Morris Rizzo MD [address] [place] [address] PCP - General Internal Medicine 05/27/22 documented as of this encounter
--- OUTSIDE RECORDS SUMMARY | 2025-10-03 06:17 | XMS_ITS | Clinical Summary ---
Author Organization [facility] Address [address] [place] [address] Care Team Providers Care Television Camera Operator Name Role Phone Morris Rizzo Primary Care Provider [phone] Allergies No known active allergies Medications atorvastatin [...] Cessation:Counseling Given: Not Answered Comments:On and off [id number] smoking, at most 1 PPD Alcohol Use [...] 08/10/2022, 10/06/2021, Additional history exists COVID-19 Vaccine (2024- 6 season) 2025 08/03/2023, 08/10/2022, 10/06/2021, Additional history exists RSV Vaccine (60+ years old a nd patients) Completed 08/03/2023 Procedures * Due to [place] [employer] law, this organization might not be sharing negative HIV tests. Procedure Name Priority Date/Time Associated Diagnosis Comments AMB EXTERNAL CT CHEST, OUTSI DE RESULT 01/23/2024 from Last 3 Months or Most Recently Relevant to Health Maintenance Results * Due to [place] [employer] law, this organization might not be sharing negative HIV tests. * AMB EXTERNAL CT CHEST, OUTSIDE RESULT (01/23/2024) [facility]TERNAL RESULT PROCEDURE S Final Result from Last 3 Months or Most Recently Relevant to Health Maintenance Insurance MEDICARE FOR LIFE Advance Directives Documents on File Type Date Recorded Patient [employer] Lug[employer] Expl [facility] Health Care Proxy 05/27/2024 7:26 AM Care Teams Television Camera Operator Relationship Specialty Start Date End Date Morris Rizzo [address] [place] [address] [place] [address] PCP - General Internal Medicine 01/09/24
--- OUTSIDE RECORDS SUMMARY | 2025-10-03 06:17 | XMS_ITS | Encounter Summary ---
Author Organization [facility] Address [address] [place] [address] Care Team Providers Care Remelt Sugar Boiler Name Role Phone Morris Rizzo MD Primary Care Provider [phone] Encounter Details Date Type Department Care Team (Late st Contact Info) Description 02/03/2025 Lab Requisition [facility] - Main Lab [address] [facility] [place] [address] Alexys Puentes MD [address] [place] [address] Chronic kidney disease, unspecified; Hyperlipidemia, unspecified; Thyrotoxicosis, [...] Result [facility] [address] [place], [place] [address] [phone] * (ABNORMAL) Basic metabolic panel (02/04/2025 8:05 [...] Result [facility] [address] [place] [address], [place] [phone] * (ABNORMAL) Complete blood count (02/04/2025 8:05 [...] Result [facility] [address] [place] [address], documented in this encounter Visit Diagnoses Diagnosis Chronic kidney disease, unspecified Hyperlipidemia, unspecified Thyrotoxicosis, unspecified without thyrotoxic crisis or storm documented in this encounter Care Teams Remelt Sugar Boiler Relationship Specialty Start Date End Date Morris Rizzo MD [address] [place] [address] PCP - General Internal Medicine 05/27/22 documented as of this encounter
--- OUTSIDE RECORDS SUMMARY | 2025-10-03 06:17 | XMS_ITS ---
Author Organization [facility] Address [address] [place] [address] Care Team Providers Care Disk Recordist Name Role Phone Morris Rizzo Primary Care [...] TotalDLP 1,042 mGy 1,042 mGy 0 mGy [id number] 13.5 mSv 13.5 mSv 0 mSv CTDIvol Max 11.8 mGy 11.8 mGy 0 mGy CTDIvol Min 7.3 mGy 7.3 mGy 0 mGy
--- OUTSIDE RECORDS SUMMARY | 2025-10-03 06:17 | XMS_ITS | Encounter Summary ---
Author Organization [facility] Address [address] [place] [address] Care Team Providers Care Electronic Assembler Name Role Phone Morris Rizzo MD Primary Care Provider [phone] Encounter Details Date Type Department Care Team (Late st Contact Info) Description 01/28/2025 Lab Requisition [facility] - Main Lab 299 [facility] [place] [address] Alexys Puentes MD [address] [place] [address] Chronic kidney disease, unspecified; Hyperlipidemia, unspecified; Hypothyroidism, [...] mmol/L LAB CHEMISTRY METHOD 01/28/2025 11:56 AM [facility] Potassium 4.0 3.5 - 5.5 mmol/L LAB CHEMISTRY METHOD 01/28/2025 11:56 AM [facility] Chloride 101 96 - 110 mmol/L LAB CHEMISTRY METHOD 01/28/2025 11:56 AM [facility] CO2 27 21 - 32 mmol/L LAB CHEMISTRY METHOD 01/28/2025 11:56 AM [facility] Anion Gap 7 3 - 11 LAB CHEMISTRY METHOD 01/28/2025 11:56 AM [facility] Glucose 87 70 - 100 mg/dL LAB CHEMISTRY METHOD 01/28/2025 11:56 AM [facility] BUN 44(H) 5 - 25 mg/dL LAB CHEMISTRY METHOD 01/28/2025 11:56 AM [facility] Creatinine 1.39(H) 0.70 - 1.30 mg/dL LAB CHEMISTRY METHOD 01/28/2025 11:56 AM [facility] eGFR 56(L) >=60 mL/min/1. 73m2 LAB CHEMISTRY METHOD 01/28/2025 11:56 AM [facility] Comment:Calculation based on the Chronic Kidney Disease Epidemiology Collaboration (CKD-EPI) equation refit without adjustment for race. BUN/Creatinine Ratio 31.7 LAB CHEMISTRY METHOD 01/28/2025 11:56 AM [facility] Calcium 8.8 8.5 - 10.5 mg/dL LAB CHEMISTRY METHOD 01/28/2025 11:56 AM [facility] AST (SGOT) 39 10 - 42 unit/L LAB CHEMISTRY METHOD 01/28/2025 11:56 AM [facility] ALT (SGPT) 105(H) 10 - 60 unit/L LAB CHEMISTRY METHOD 01/28/2025 11:56 AM [facility] Alkaline Phosphatase 147(H) 42 - 121 unit/L LAB CHEMISTRY METHOD 01/28/2025 11:56 AM EDT [facility] Total Protein 5.5(L) 6.0 - 8.0 g/dL LAB CHEMISTRY METHOD 01/28/2025 11:56 AM [facility] Albumin 2.6(L) 3.2 - 5.0 g/dL LAB CHEMISTRY METHOD 01/28/2025 11:56 AM [facility] Total Bilirubin 0.9 0.0 - 1.4 mg/dL LAB CHEMISTRY METHOD 01/28/2025 11:56 AM T [facility] Blood Venous blood specimen / Unknown Venipuncture / Unknown 01/28/2025 8:36 AM EDT 01/28/2025 10:43 AM EDT Alexys Puentes MD LAB BLOOD ORDERABLES Final Result [facility] [address] [place] [address], * (ABNORMAL) Complete blood count (01/28/2025 8:36 AM EDT) WBC 5.1 4.8 - 10.8 K/[facility] LAB HEMETOLOGY METHOD 01/28/2025 12:04 PM [facility] RBC 3.50(L) 4.50 - 5.50 M/[facility] LAB HEMETOLOGY METHOD 01/28/2025 12:04 PM [facility] Hemoglobin 11.6(L) 13.5 - 17.5 g/dL LAB HEMETOLOGY METHOD 01/28/2025 12:04 PM [facility] Hematocrit 34.2(L) 42.0 - 54.0 % LAB HEMETOLOGY METHOD 01/28/2025 12:04 PM [facility] MCV 96.6 79.0 - 98.0 FL LAB HEMETOLOGY METHOD 01/28/2025 12:04 PM EDT [facility] MCH 32.8(H) 27.0 - 32.0 pcg LAB HEMETOLOGY METHOD 01/28/2025 12:04 PM EDT [facility] MCHC 33.9 32.0 - 37.0 g/dL LAB HEMETOLOGY METHOD 01/28/2025 12:04 PM EDT [facility] RDW 18.3(H) 11.0 - 15.0 % LAB HEMETOLOGY METHOD 01/28/2025 12:04 PM EDT [facility] Platelets 92(L) 130 - 400 K/mcL LAB HEMETOLOGY METHOD 01/28/2025 12:04 PM EDT [facility] Comment:reviewed by slide MPV 10.4 7.0 - 11.0 FL LAB HEMETOLOGY METHOD 01/28/2025 12:04 PM EDT [facility] NRBC 0.4 <1.0 % LAB HEMETOLOGY METHOD 01/28/2025 12:04 PM EDT [facility] NRBC Absolute 0.02 <0.10 K/mcL LAB HEMETOLOGY METHOD 01/28/2025 12:04 PM EDT [facility] Blood Venous blood specimen / Unknown Venipuncture / Unknown 01/28/2025 8:36 AM EDT 01/28/2025 10:43 AM EDT us Alexys Puentes MD LAB BLOOD ORDERABLES Final Result [facility] [address] [place] [address], documented in this encounter Visit Diagnoses Diagnosis Chronic kidney disease, unspecified Hyperlipidemia, unspecified Hypothyroidism, unspecified documented in this encounter Care Teams Electronic Assembler Relationship Specialty Start Date End Date Morris iRzzo MD [address] [place] [address] PCP - General Internal Medicine 05/27/22 documented as of this encounter
--- OUTSIDE RECORDS SUMMARY | 2025-10-03 06:17 | XMS_ITS | Patient Health Record ---
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 [employer] Notes: Nonsmoker since 2016; no sig alcohol Nonsmoker since 2016; no sig alcohol Problems Problem Type SNOMED Code ICD Code Onset Dates Problem Status W/U Status Risk Notes Problem Colon cancer screening (323243159) Colon cancer screening (Z12.11) Active confirmed Problem Epigastric pain (17879340) Epigastric abdominal pain (R10.13) Active confirmed Problem Screening for malignant neoplasm of colon (717515133) Encounter for screening for malignant neoplasm of colon (Z12.11) Active confirmed Problem Preprocedural examination (888953975288765) Preprocedural examination (Z01.818) Active confirmed Plan Of Treatment Future Test Test Name Order Date UPPER GI ENDOSCOPY 08/23/2017 COLONOSCOPY 04/10/2019 COLONOSCOPY 04/26/2024 Insurance Providers Payer Name Payer Address Payer Phone Subscriber Number Group Number Insured Name Patient Relationship to Insured Coverage Start Date Coverage End Date MEDICARE OF [place] [address] [place] [address] [id number] JOSE CUBA Self - patient is the insured Spotted [address] [place] [address] [id number] JOSE CUBA Self - patient is the insured Medical (General) History Medical History History ICD Code Denies [place],DM,CVA,Lung disease,renal dise ase Hyperlipidemia Screening colonoscopy in Mar with Dr. Johansen revealed only hyperplastic polyps. EGD in 08/2017-small HH, normal duodenal and gastric biopsies Surgical History Surgery Date(Month/Year) Lap cholecystectomy--acalculous cholecys titis-Dr. Knutson 05/2017 Finger- infection drained 1969
--- OUTSIDE RECORDS SUMMARY | 2025-10-03 06:17 | XMS_ITS | Encounter Summary ---
Author Organization [facility] Address [address] [place] [address] Care Team Providers Care Brass Buffer Name Role Phone Morris Rizzo Primary Care Provider Encounter Details Date Type Department Care Team (Late st Contact Info) Description 04/15/2024 Orders Only [facility] [address] [facility], 5th [place] [address] Shola Arroyo MD [address] [place] [address] Social History Tobacco Use Types Packs/Day Years [...] on filedocumented in this encounter Care Teams Brass Buffer Relationship Specialty Start Date End Date Morris Rizzo [address] [place] [address] [place] [address] PCP - General Internal Medicine 01/09/24 documented as of this encounter
--- OUTSIDE RECORDS SUMMARY | 2025-10-03 06:18 | XMS_ITS | Clinical Summary ---
Author Organization [facility] Address [address] [place], [place] [id number] Phone Care Team Providers Care Mail Handler Assistant Name Role Phone Unavailable Primary Care Provider [...] [place] [id number] MEDICARE PART A & B Member Subscriber Plan / Payer (Ef fective 2023-) Name:Brady Lambert Member ID:[id number] Relation to Subscriber:Self Name:Brady Lambert Subscriber ID:[id number] Payer ID:[id number] Group ID:Not on file Type:Medicare Address: [employer] [place] [address] MEDICARE PART A & B Member Subscriber Plan / Payer (Ef fective 2023-) Name:Brady Lambert Member ID:[id number] Relation to Subscriber:Self Name:PetraBrady Subscriber ID:[id number] Payer ID:[id number] Group ID:Not on file Type:Medicare Address: [employer]. [address] [place] [address] MEDICARE PART A & B Member Subscriber Plan / Payer (Ef fective 2023-) Name:Brady Lambert Member ID:[id number] Relation to Subscriber:Self Name:PetraBrady Subscriber ID:[id number] Payer ID:[id number] Group ID:Not on file Type:Medicare Address: [employer]. [address] [place] [address] MEDICARE PART A & B MEDICARE PART A & B Additional Source Comments The information contained in this document represents components of the legal health record. It is not the complete legal health record.[facility]
[2025-10-03 06:41] LABS: MANUAL DIFF FLAG NO
[2025-10-03 06:56] LABS: Hematocrit 36.0 % (42.0-52.0); Hemoglobin 12.1 g/dl (14.0-18.0); Imm Gran Abs Auto 0.00 X10*3/uL (0.00-0.03); Imm Gran Pct Auto 0.0 % (0.0-0.4); Lymphocytes Absolute Auto 1.2 X10*3/uL (1.2-4.9); Mean Corpuscular HGB Conc 33.6 g/dl (31.0-36.0); Mean Corpuscular Hemoglobin 31.8 pg (27.0-33.0); Mean Corpuscular Volume 94.5 fL (80.0-98.0); NRBC Abs Auto 0.000 X10*3/uL (0.0-0.012); NRBC Pct Auto 0.0 /100WBC (0.0-0.2); Platelet Count 132 X10*3/uL (160-400); Red Blood Count 3.81 X10*6/uL (4.60-5.80); White Blood Count 3.7 X10*3/uL (4.8-10.8)
[2025-10-03 06:58] LABS: Alanine Aminotransferase 23 U/L (0-40); Albumin Level 4.0 g/dL (3.5-5.0); Alkaline Phosphatase 108 U/L (39-117); Anion Gap 10 (12-20); Aspartate Amino Transferase 43 U/L (5-37); Blood Urea Nitrogen 41 mg/dL (9-16); Calcium 9.4 mg/dL (8.4-10.2); Carbon Dioxide 26 mmol/L (22-29); Chloride 108 mmol/L (96-108); Estimated Glomerular Filt Rate 27; Magnesium 2.0 mg/dL (1.6-2.6); Potassium 4.7 mmol/L (3.3-5.1); Sodium 139 mmol/L (135-145); Total Protein 6.8 g/dL (6.5-8.0)
== END 2025-10-03 06:16 | disposition home or self-care (01) ==
LOC: HO.LAB 06:15
PROVIDERS: Visit Provider Internal Medicine
DX: C67.9 Malignant neoplasm of bladder, unspecified (principal)
CPT/HCPCS: 36415; 80053; 83735; 85025

== ENCOUNTER 2025-10-13 09:16 | Outpatient (AMB) | payer MEDICARE, OTHER, SELFPAY ==
[2025-10-13 09:30] VITALS: BP 84/52; PULSE 75; O2SAT 96; BMI 27.0
--- NOTE | 2025-10-13 09:30 | MHC.OFFVIS ---
Vital Signs 10/13/25 09:30 Height 6 ft 2 in Weight 210 lb 8.663 oz BMI 27.0 BP 84/52 L Blood Pressure Location Rt brachial Position Sitting Pulse 75 Pulse Source Pulse Oximeter Pulse Oximetry (%) 96 Oxygen Delivery Method Room Air Intake Visit Reasons: Cough/Shortness of Breath Allergies No Known Allergies (No Known Allergies*) Allergy (Verified 10/13/25 09:34) HPI HPI Cough/Shortness of Breath: Details: HPI Comments Details: Brady is a pleasant 64 year old male, former 20 pack year smoker, quit 13 years ago with underlying hypercholesterolemia, obesity, neuropathy, h/o metastatic bladder cancer under the care of [facility] , chronic kidney disease, hypothyroidism, adrenal insufficiency, and hypertension. He was initially referred after pneumonia and pulmonary embolism this past Spring. CTA 12/2024 demonstreated patchy right lung infiltrate suspicious for pneumonia treated with IV Ceftriaxone azithromycin, started 01/10/2025 with good response as cough and dyspnea improved. His blood cultures remained negative and discharged on PO Azithromycin and Ceftin for 1 week to finish total of 10 days of antibiotics. Post discharge he was noted to be tachycardic and tachypneic. D-dimer was over 3000. V/Q scan showed multiple perfusion defects bilaterally, transferred to [facility] and he was started on Eliquis for unprovoked PE however with underlying malignancy likely being the cause. Repeat CT chest performed February 2025 shows resolution of lung infiltrates without evidence of metastatic disease. Oncology is currently prescribing Eliquis and patient has been tolerating well. He reports the cough continues, sometimes with spasms, despite using Symbicort which was prescribed at the last visit. He notes a little improvement but nothing significant. He produces a small amount of mucus at times, clear. He also reports experiencing some postnasal drip. His medication regimen for respiratory symptoms includes Symbicort (budesonide/formoterol), two puffs twice a day, and he is compliant with gargling and rinsing his mouth afterward. He also has cough syrup with codeine, which he uses only when absolutely needed. The patient is on chronic OCS and has not noted a change in cough with use. The patient has a history of pulmonary embolism, for which he was started on Eliquis. He remains on Eliquis indefinitely and reports tolerating it well without nosebleeds, easy bruising, or hemoptysis. His shortness of breath is not a significant issue and is much improved from when he first had the pulmonary embolism. Pulmonology History - Chronic cough, sometimes spasmodic, with little improvement on inhaler therapy. - History of pulmonary embolism, on indefinite Eliquis therapy. - Diagnosis of COPD, with some areas of scarring noted on chest CT. - Past breathing test showed response to albuterol, suggestive of small airways disease. - Current use of Symbicort (budesonide and formoterol) two puffs twice a day. - Use of cough syrup with codeine as needed. [facility] Medical History Pulmonary embolism Dry skin Dyspnea on exertion Left wrist pain Stiffness of left wrist joint Elevated serum creatinine Elevated blood pressure reading Hematuria Bladder mass History of immune checkpoint inhibitor therapy Hypophysitis Adrenal insufficiency Hypothyroidism Port-A-Cath in place (02/16/24) History of blood transfusion Bladder cancer Obesity (BMI 30-39.9) Pure hypercholesterolemia Hyperlipemia Carpal tunnel syndrome Surgical History Mass of left axilla (05/31/24) Hx of colonoscopy Hx of cystoscopy History of surgery History of hand surgery History of ankle surgery History of cholecystectomy Family History Father Multiple sclerosis, primary progressive Mother No problems noted. 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 Current occupational exposures/hazards: No Cognitive needs: No Hearing needs: No Vision needs: Yes (Glasses) Review of Systems Const Denies chills, Denies excessive sweating, Denies fever(s), Denies headache(s) and Denies night sweats Eyes Denies dry eyes, Denies irritation and Denies itchy eyes ENT Reports Normal hearing present, Denies headache(s), Reports nasal discharge and Denies sore throat Card Denies chest pain, Denies chest pain at rest, Denies chest pain with activity, Denies claudication, Denies leg edema, Denies dyspnea, Denies dyspnea on exertion, Denies orthopnea and Denies paroxysmal nocturnal dyspnea Resp Denies change in phlegm color, Denies chest congestion, Reports cough, Denies hemoptysis, Denies excessive phlegm production, Denies pain on inspiration, Denies pain with cough, Denies dyspnea, Denies dyspnea on exertion, Denies stridor and Denies wheezing Musc Denies myalgias Neuro Reports Normal hearing present and Denies headache(s) Endo Denies excessive sweating Phil/Lymph Denies lymphadenopathy Aller/Immun Denies itchy eyes, Denies seasonal rhinorrhea and Denies wheezing Physical Exam Vital Signs: Last Vital Signs Pulse 75 10/13/25 09:30 BP 84/52 L 10/13/25 09:30 Pulse Ox 96 10/13/25 09:30 Oxygen Delivery Method Room Air 10/13/25 09:30 BMI result Body Mass Index 27.0 Const General: cooperative, comfortable, no acute distress, well developed and alert Orientation/consciousness: patient oriented x3 HEENT Head: Yes normal to inspection, Yes normocephalic and Yes atraumatic Ears: hearing grossly normal bilaterally and external ears normal Eyes General: appearance normal, both eyes and all related structures Eyelids: Yes eyelids normal Sclerae: sclerae normal EOM: EOMs intact bilaterally Neck Neck: Yes normal visual inspection and Yes no lymphadenopathy Lymphatic: no lymphadenopathy noted Chest Chest palpation & inspection: normal inspection of the chest Resp Effort & Inspection: normal respiratory effort, able to speak in complete sentences, no audible wheezes, no stridor, not tachypneic, no tripod positioning and no use of accessory muscles Auscultation: diminished lung sounds Cardio Jugular venous distension: no JVD Rate: regular rate Rhythm: regular rhythm Skin Other: warm, dry General skin exam: no rashes or lesions noted Neuro General: patient oriented x3 Cranial nerves: Yes Normal hearing present Cognition (Neuro): normal cognition Gait exam (Neuro): Normal gait present Extrem General: Yes normal to inspection, Yes capillary refill normal, Yes no clubbing, cyanosis or edema and Yes no pedal edema Psych Appearance: grossly normal and well kempt Speech and movement: Normal speech and movement present and Clear speech present Affect: normal affect Attitude: cooperative Thought process: Normal thought process present Thought content: Normal thought content present Insight: Good insight present (Psych) Judgement: Good judgement present (Psych) Results Reviewed Results Reviewed: [address] [address] [address] Scan Report Signed Patient: Brady Lambert MR#: [id number] : 1960 Acct:[id number] Age/Sex: 64 / M ADM Date: 09/12/25 Loc: HO.CT Attending Dr: Rubina Gibbs NP Ordering Physician: Rubina Gibbs NP Date of Service: 09/12/25 Procedure(s): CT chest wo IV con Accession Number(s): [id number] cc: Mckayla Wolfe PA-C; Rubina Gibbs NP~ Report Number: [id number]: Total DLP = 200.00 mGy-cm Reason for Exam: R05.9 - Cough, unspecified EXAMINATION: CT CHEST WITHOUT CONTRAST CLINICAL INFORMATION: Cough, unspecified. History of bladder cancer. COMPARISON: 03/18/2025 CT chest. 01/10/2025 CT chest. 01/23/2024 CT chest. TECHNIQUE: Multidetector volumetric CT imaging of the chest was done. Axial MIP volume rendering provided. Sagittal and coronal reformatted images were obtained. This CT examination was performed using dose optimization techniques as appropriate, variously including the following: *Automated exposure control *Adjustment of mA and/or kV according to patient size (this includes techniques or standardized protocols for targeted exams where dose is matched to indication/reason for exam; i.e. extremities or head) *Use of iterative reconstruction technique FINDINGS: LUNGS: Mild subpleural chronic reticulonodular changes are present in the superior segment of the right lower lobe, with an associated calcified granuloma, unchanged from prior exams and presumably representing mild chronic scarring from prior inflammatory abnormality. Similar mild chronic subpleural scarring is seen in the right lower lobe laterally and posteriorly. No additional abnormal opacities. Mild paraseptal and centrilobular emphysema. Small airways appear normal without thickening or bronchiectasis. There are a few scattered unchanged micronodules measuring up to 4 mm. There are a few scattered calcified granulomata. There is no new or enlarging pulmonary nodule identified. No effusion or pneumothorax. Central airways are widely patent. MEDIASTINUM: Right chest port is in place with tip terminating in the distal SVC, unchanged. The ascending aorta is again noted to be minimally aneurysmal at 4.3 cm. This is unchanged. There is mild atheromatous calcification and mild tortuosity. The pulmonary trunk is normal in size. The heart size is normal. No pericardial effusion. No mediastinal lymphadenopathy or mass is present. The esophagus is unremarkable. The thyroid is unremarkable. CORONARY ARTERY CALCIFICATION: Moderate degree present. AXILLA\CHEST WALL: No abnormal lymphadenopathy or mass. Right chest port in place. UPPER ABDOMEN: Imaged upper abdominal contents demonstrate cholecystectomy clips in place. Unenhanced liver is unremarkable. OSSEOUS STRUCTURES: No suspicious lytic or blastic bone lesion evident. Mild to moderate degenerative changes of the spine. Minimal chronic T5 superior endplate loss of height. CT/CT chest wo IV con IMPRESSION: 1. There is mild COPD, unchanged. No definite acute lung disease is present. 2. There are stable subtle foci of subpleural reticulonodular scarring in the superior segment right lower lobe and lateral basal right lower lobe, within the regions of previously seen inflammatory abnormality. 3. No small or large airway abnormality is evident. 4. There are a few stable scattered micronodules measuring up to 4 mm. There is no new or enlarging nodule present. 5. There is stable mild aneurysmal dilatation of the ascending aorta at 4.3 cm. 6. Additional stable ancillary findings as discussed in the body the report. Electronically signed by: Alexander Francis MD 09/12/2025 09:24 AM EST Dictated By: Alexander Francis MD Signed By: <Electronically signed by Alexander Francis MD in OV> 09/12/25 0924 DD/ 0844 TD/TT: 09/12/25902 Coding Validator: Assessment & Plan Assessment & Plan (1) Asthma: Code(s): J45.909 - Unspecified asthma, uncomplicated Category: Medical (2) Pulmonary embolism: Code(s): I26.99 - Other pulmonary embolism without acute cor pulmonale Category: Medical (3) Cough: Code(s): R05.9 - Cough, unspecified Category: Medical (4) Multiple pulmonary nodules: Code(s): R91.8 - Other nonspecific abnormal finding of lung field Category: Medical Plan The patient's chronic cough has shown minimal improvement with Symbicort. The differential diagnosis includes small airways disease, postnasal drip, and acid reflux. As the patient acknowledges symptoms of postnasal drip, a trial of a nasal spray will be initiated to see if it reduces the cough. A prescription for a nasal spray will be sent to [facility], starting with one spray in each nostril once daily, with the potential to increase to twice a day. The patient will continue Symbicort for an additional month. If the cough does not improve, a short course of prednisone may be considered, although this is complicated by his current use of hydrocortisone. A recent CT scan identified multiple stable pulmonary nodules, will repeat in one year to assess stability. There was also finding of a mild aortic aneurysm measuring 4.3 cm, which is stable compared to a prior scan. This finding requires annual monitoring. The patient's primary care physician, will be notified to ensure awareness and to coordinate this surveillance. The importance of good blood pressure control was emphasized. The patient is on metoprolol twice daily for hypertension, but his blood pressure was low during the visit. He was advised to monitor his blood pressure at home over the next week. If his blood pressure readings are persistently low, he should contact his primary care physician, as a dose reduction of metoprolol may be necessary. The patient has findings of COPD and small airways disease. He will continue using Symbicort (budesonide/formoterol) two puffs twice daily and was reminded to rinse his mouth after use to prevent side effects. The patient has a history of pulmonary embolism and is on long-term anticoagulation with Eliquis. He tolerates the medication well without any bleeding complications. He will continue Eliquis as prescribed indefinitely per oncology recommendations. We will plan to follow up in two to three months, but advised him to call sooner if his symptoms worsen or he has any concerns. All questions were answered and patient is in agreement of plan. Patient Instructions - Continue taking your Symbicort inhaler (budesonide) with two puffs twice a day. - Remember to gargle and rinse your mouth with water after each use. - Start using the new nasal spray that was prescribed. - Begin with one spray in each nostril once a day in the morning. - If you do not experience side effects like excessive dryness or nosebleeds, you can increase this to twice a day. - Check your blood pressure at home for the next week. - If your numbers are consistently low, please call your primary care doctor's office, as your metoprolol medication may need to be adjusted. - We will notify your primary care doctor about the aortic aneurysm found on your CAT scan, which will need to be monitored once a year. - Continue taking all your other medications, including Eliquis, as prescribed. - Schedule a follow-up appointment in 2 to 3 months. - Please call our office sooner if your cough gets worse or if you have any other new or worsening symptoms. Patient was informed and verbally consented to the use of an ambient scribe for clinic note documentation during this visit. Orders: Orders CT chest wo IV con 11 Months R91.8 - Other nonspecific abnormal finding of lung field Medications: New ipratropium bromide administer into each nostril 2 sprays intranasal BID 30 mL 2RF Coding Level of Care Code Est Pt Level 4 (99021) Diagnoses Asthma J45.909 Pulmonary embolism I26.99 Cough R05.9 Multiple pulmonary nodules R91.8
--- OUTSIDE RECORDS SUMMARY | 2025-10-13 10:20 | XMS_ITS | Patient Health Record ---
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 [employer] Notes: Nonsmoker since 2016; no sig alcohol Nonsmoker since 2016; no sig alcohol Problems Problem Type SNOMED Code ICD Code Onset Dates Problem Status W/U Status Risk Notes Problem Colon cancer screening (334118095) Colon cancer screening (Z12.11) Active confirmed Problem Epigastric pain (47899889) Epigastric abdominal pain (R10.13) Active confirmed Problem Screening for malignant neoplasm of colon (287461154) Encounter for screening for malignant neoplasm of colon (Z12.11) Active confirmed Problem Preprocedural examination (039647661659452) Preprocedural examination (Z01.818) Active confirmed Plan Of Treatment Future Test Test Name Order Date UPPER GI ENDOSCOPY 08/23/2017 COLONOSCOPY 04/10/2019 COLONOSCOPY 04/26/2024 Insurance Providers Payer Name Payer Address Payer Phone Subscriber Number Group Number Insured Name Patient Relationship to Insured Coverage Start Date Coverage End Date MEDICARE OF [place] [address] [place] [address] [id number] JOSE CUBA Self - patient is the insured Karaz [address] [place] [address] [id number] JOSE CUBA Self - patient is the insured Medical (General) History Medical History History ICD Code Denies VA,DM,CVA,Lung disease,renal dise ase Hyperlipidemia Screening colonoscopy in Mar with Dr. Johansen revealed only hyperplastic polyps. EGD in 08/2017-small HH, normal duodenal and gastric biopsies Surgical History Surgery Date(Month/Year) Lap cholecystectomy--acalculous cholecys titis-Dr. Knutson 05/2017 Finger- infection drained 1969
--- OUTSIDE RECORDS SUMMARY | 2025-10-13 10:20 | XMS_ITS | Encounter Summary ---
Author Organization [facility] Address [address] [place] [address] Care Team Providers Care Sports Marketer Name Role Phone Morris Rizzo MD Primary Care Provider [phone] Encounter Details Date Type Department Care Team (Late st Contact Info) Description 01/28/2025 Lab Requisition [facility] - Main Lab [address] [facility] [place] [address] Alexys Puentes MD [address] [place] [id number] Chronic kidney disease, unspecified; Hyperlipidemia, unspecified; Hypothyroidism, [...] mmol/L LAB CHEMISTRY METHOD 01/28/2025 11:56 AM [facility] Potassium 4.0 3.5 - 5.5 mmol/L LAB CHEMISTRY METHOD 01/28/2025 11:56 AM [facility] Chloride 101 96 - 110 mmol/L LAB CHEMISTRY METHOD 01/28/2025 11:56 AM [facility] CO2 27 21 - 32 mmol/L LAB CHEMISTRY METHOD 01/28/2025 11:56 AM [facility] Anion Gap 7 3 - 11 LAB CHEMISTRY METHOD 01/28/2025 11:56 AM [facility] Glucose 87 70 - 100 mg/dL LAB CHEMISTRY METHOD 01/28/2025 11:56 AM [facility] BUN 44(H) 5 - 25 mg/dL LAB CHEMISTRY METHOD 01/28/2025 11:56 AM [facility] Creatinine 1.39(H) 0.70 - 1.30 mg/dL LAB CHEMISTRY METHOD 01/28/2025 11:56 AM [facility] eGFR 56(L) >=60 mL/min/1. 73m2 LAB CHEMISTRY METHOD 01/28/2025 11:56 AM [facility] Comment:Calculation based on the Chronic Kidney Disease Epidemiology Collaboration (CKD-EPI) equation refit without adjustment for race. BUN/Creatinine Ratio 31.7 LAB CHEMISTRY METHOD 01/28/2025 11:56 AM [facility] Calcium 8.8 8.5 - 10.5 mg/dL LAB CHEMISTRY METHOD 01/28/2025 11:56 AM [facility] AST (SGOT) 39 10 - 42 unit/L LAB CHEMISTRY METHOD 01/28/2025 11:56 AM [facility] ALT (SGPT) 105(H) 10 - 60 unit/L LAB CHEMISTRY METHOD 01/28/2025 11:56 AM [facility] Alkaline Phosphatase 147(H) 42 - 121 unit/L LAB CHEMISTRY METHOD 01/28/2025 11:56 AM EDT [facility] Total Protein 5.5(L) 6.0 - 8.0 g/dL LAB CHEMISTRY METHOD 01/28/2025 11:56 AM [facility] Albumin 2.6(L) 3.2 - 5.0 g/dL LAB CHEMISTRY METHOD 01/28/2025 11:56 AM [facility] Total Bilirubin 0.9 0.0 - 1.4 mg/dL LAB CHEMISTRY METHOD 01/28/2025 11:56 AM T [facility] Blood Venous blood specimen / Unknown Venipuncture / Unknown 01/28/2025 8:36 AM EDT 01/28/2025 10:43 AM EDT Alexys Puentes MD LAB BLOOD ORDERABLES Final Result [facility] [address] [place] [address], * (ABNORMAL) Complete blood count (01/28/2025 8:36 AM EDT) WBC 5.1 4.8 - 10.8 K/[facility] LAB HEMETOLOGY METHOD 01/28/2025 12:04 PM [facility] RBC 3.50(L) 4.50 - 5.50 M/[facility] LAB HEMETOLOGY METHOD 01/28/2025 12:04 PM [facility] Hemoglobin 11.6(L) 13.5 - 17.5 g/dL LAB HEMETOLOGY METHOD 01/28/2025 12:04 PM [facility] Hematocrit 34.2(L) 42.0 - 54.0 % LAB HEMETOLOGY METHOD 01/28/2025 12:04 PM [facility] MCV 96.6 79.0 - [...] Result [facility] [address] [place] [address], documented in this encounter Visit Diagnoses Diagnosis Chronic kidney disease, unspecified Hyperlipidemia, unspecified Hypothyroidism, unspecified documented in this encounter Care Teams Sports Marketer Relationship Specialty Start Date End Date Morris Rizzo MD [address] [place] [address] PCP - General Internal Medicine 05/27/22 documented as of this encounter
--- OUTSIDE RECORDS SUMMARY | 2025-10-13 10:20 | XMS_ITS | Clinical Summary ---
Author Organization [facility] Address [address] [place] [address] Phone Care Team Providers Care Label Stamper Name Role Phone Morris Rizzo MD Primary Care Provider [phone] Social History Tobacco Use Types Packs/Day Years [...] AM EDT Narrative 08/19/2024 6:31 AM EDT [facility] Diagnostic Imaging Department [address] [place] [address] Patient: JOSE LAMBERT Chandler Vickers/Age/Sex: 1960 - 63 - M Unit#: [id number] Location/Status: SPDICATLS/REG CLI Mnemonic/Ordering Site: [facility] Ordering Physician: SUYAPA WEST MD CT Lung [...] Procedure Note Alpa Lorenzana MD - 08/24/2024 [facility] Diagnostic Imaging Department [address] [place] [address] Patient: JOSE LAMBERT /Age/Sex: 1960 - 63 - M Unit#: [id number] Location/Status: SPDICATLS/REG CLI Mnemonic/Ordering Site: [facility] Ordering Physician: SUYAPA WEST MD CT Lung [...] Recently Relevant to Health Maintenance Insurance MEDICARE [facility] Care Teams Label Stamper Relationship Specialty Start Date End Date Morris Rizzo MD [address] [facility] [address] [place] [address] PCP - General Internal Medicine 05/27/22
--- OUTSIDE RECORDS SUMMARY | 2025-10-13 10:20 | XMS_ITS ---
Author Organization [facility] Address [address] [place] [address] Care Team Providers Care Digital Traffic Coordinator Name Role Phone Morris Rizzo Primary [...] TotalDLP 1,042 mGy 1,042 mGy 0 mGy [id number] 13.5 mSv 13.5 mSv 0 mSv CTDIvol Max 11.8 mGy 11.8 mGy 0 mGy CTDIvol Min 7.3 mGy 7.3 mGy 0 mGy
--- OUTSIDE RECORDS SUMMARY | 2025-10-13 10:20 | XMS_ITS | Encounter Summary ---
Author Organization [facility] Address [address] [place] [address] Care Team Providers Care Back Maker Name Role Phone Morris Rizzo Primary Care Provider [phone] Encounter Details Date Type Department Care Team (Late st Contact Info) Description 04/15/2024 Orders Only [facility] [address] [facility], [address]th [place] [address] Shola Arroyo MD [address] [place] [id number] Social History Tobacco Use Types Packs/Day Years [...] on filedocumented in this encounter Care Teams Back Maker Relationship Specialty Start Date End Date Morris Rizzo [address] [place] [address] [place] [address] PCP - General Internal Medicine 01/09/24 documented as of this encounter
--- OUTSIDE RECORDS SUMMARY | 2025-10-13 10:20 | XMS_ITS | Encounter Summary ---
Author Organization [facility] Address [address] [place] [address] Care Team Providers Care Air Quality Engineer Name Role Phone Morris Rizzo MD Primary Care Provider [phone] Encounter Details Date Type Department Care Team (Late st Contact Info) Description 02/10/2025 Lab Requisition [facility] - Main Lab [address] [facility] [place] [address] Alexys Puentes MD [address] [place] [id number] Chronic kidney disease, unspecified; Hyperlipidemia, unspecified; Thyrotoxicosis, [...] t3 (02/11/2025 7:58 AM EDT) Pathologist [facility] TSH 2.86 0.40 - 4.00 mcIU/mL LAB CHEMISTRY METHOD 02/11/2025 1:02 PM EDT [facility] Blood Venous blood specimen / Unknown Venipuncture / Unknown 02/11/2025 7:58 AM EDT 02/11/2025 9:08 AM EDT Alexys Puentes MD LAB BLOOD ORDERABLES Final Result [facility] [address] [place] [address], * (ABNORMAL) Basic metabolic panel (02/11/2025 7:58 AM EDT) [facility] Sodium 143 133 - 145 mmol/L LAB [...] LAB CHEMISTRY METHOD 02/11/2025 11:11 AM EDT [facility] Creatinine 1.67(H) 0.70 - 1.30 mg/dL LAB CHEMISTRY METHOD 02/11/2025 11:11 AM EDT [facility] eGFR 45(L) >=60 mL/min/1. 73m2 LAB CHEMISTRY METHOD 02/11/2025 11:11 AM EDT [facility] Comment:Calculation based on the Chronic Kidney Disease Epidemiology Collaboration (CKD-EPI) equation refit without adjustment for race. BUN/Creatinine Ratio 18.6 LAB CHEMISTRY METHOD 02/11/2025 11:11 AM EDT [facility] Calcium 8.7 8.5 - 10.5 mg/dL LAB CHEMISTRY METHOD 02/11/2025 11:11 AM [facility] Blood Venous blood specimen / Unknown Venipuncture / Unknown 02/11/2025 7:58 AM EDT 02/11/2025 9:08 AM EDT us Alexys Puentes MD LAB BLOOD ORDERABLES Final Result [facility] [address] [place] [address], * (ABNORMAL) Complete blood count (02/11/2025 7:58 AM EDT) WBC 5.0 4.8 - 10.8 K/mcL LAB HEMETOLOGY METHOD 02/11/2025 10:45 AM EDT [facility] RBC 2.90(L) 4.50 - 5.50 M/mcL LAB HEMETOLOGY METHOD 02/11/2025 10:45 AM EDT [facility] Hemoglobin 9.4(L) 13.5 - 17.5 g/dL LAB HEMETOLOGY METHOD 02/11/2025 10:45 AM EDT [facility] Hematocrit 29.0(L) 42.0 - 54.0 % LAB HEMETOLOGY METHOD 02/11/2025 10:45 AM EDT [facility] MCV 101.4(H) 79.0 - 98.0 FL LAB HEMETOLOGY METHOD 02/11/2025 10:45 AM EDT [facility] MCH 32.9(H) 27.0 - 32.0 pcg LAB HEMETOLOGY METHOD 02/11/2025 10:45 AM EDT [facility] MCHC 32.4 32.0 - 37.0 g/dL LAB HEMETOLOGY METHOD 02/11/2025 10:45 AM EDT [facility] RDW 20.2(H) 11.0 - 15.0 % LAB HEMETOLOGY METHOD 02/11/2025 10:45 AM T [facility] Platelets 203 130 - 400 K/mcL LAB HEMETOLOGY METHOD 02/11/2025 10:45 AM EDT [facility] MPV 9.8 7.0 - 11.0 FL LAB HEMETOLOGY METHOD 02/11/2025 10:45 AM EDT [facility] NRBC 1.0(H) <1.0 % LAB HEMETOLOGY METHOD 02/11/2025 10:45 AM T [facility] NRBC Absolute 0.05 <0.10 K/mcL LAB HEMETOLOGY METHOD 02/11/2025 10:45 AM EDT [facility] Blood Venous blood specimen / Unknown Venipuncture / Unknown 02/11/2025 7:58 AM EDT 02/11/2025 9:08 AM EDT us Alexys Puentes MD LAB BLOOD ORDERABLES Final Result [facility] [address] [place] [address], documented in this encounter Visit Diagnoses Diagnosis Chronic kidney disease, unspecified Hyperlipidemia, unspecified Thyrotoxicosis, unspecified without thyrotoxic crisis or storm Disorder of thyroid, unspecified documented in this encounter Care Teams Air Quality Engineer Relationship Specialty Start Date End Date Morris Rizzo MD [address] [place] [address] Drive [address] [place] [address] PCP - General Internal Medicine 05/27/22 documented as of this encounter
--- OUTSIDE RECORDS SUMMARY | 2025-10-13 10:20 | XMS_ITS | Clinical Summary ---
Author Organization [facility] Address [address] [place] [address] Care Team Providers Care Chip Separator Name Role Phone Morris Rizzo Primary Care Provider [phone] Allergies No known active allergies Medications atorvastatin [...] Cessation:Counseling Given: Not Answered Comments:On and off [id number] smoking, at most 1 PPD Alcohol Use [...] patients) Completed 08/03/2023 Procedures * Due to [place] [employer] law, this organization might not be sharing negative HIV tests. Procedure Name Priority Date/Time Associated Diagnosis Comments AMB EXTERNAL CT CHEST, OUTSI DE RESULT 01/23/2024 from Last 3 Months or Most Recently Relevant to Health Maintenance Results * Due to [place] [employer] law, this organization might not be sharing negative HIV tests. * AMB EXTERNAL CT CHEST, OUTSIDE RESULT (01/23/2024) [facility]NAL RESULT PROCEDURE S Final Result from Last 3 Months or Most Recently Relevant to Health Maintenance Insurance MEDICARE FOR LIFE Advance Directives Documents on File Type Date Recorded Patient Alarm Operator Expl [facility] Health Care Proxy 05/27/2024 7:26 AM Care Teams Chip Separator Relationship Specialty Start Date End Date Morris Rizzo [address] [place] [address] [place] [address] PCP - General Internal Medicine 01/09/24
--- OUTSIDE RECORDS SUMMARY | 2025-10-13 10:20 | XMS_ITS | Clinical Summary ---
Author Organization [facility] Address [address] [facility] [address] [place], [place] [id number] Phone Care Team Providers Care Dough Panner Name Role Phone Unavailable Primary Care Provider [...] [place] [id number] MEDICARE PART A & B MEDICARE PART A & B MEDICARE PART A & B MEDICARE PART A & B MEDICARE PART A & B Additional Source Comments The information contained in this document represents components of the legal health record. It is not the complete legal health record.[facility]
--- OUTSIDE RECORDS SUMMARY | 2025-10-13 10:20 | XMS_ITS | Encounter Summary ---
Author Organization [facility] Address [address] [place] [address] Care Team Providers Care Window Shade Cutter Name Role Phone Morris Rizzo MD Primary Care Provider [phone] Encounter Details Date Type Department Care Team (Late st Contact Info) Description 02/17/2025 Lab Requisition [facility] - Main Lab [address] [facility] [place] [address] Alexys Puentes MD [address] [place] [id number] Chronic kidney disease, unspecified; Hyperlipidemia, unspecified; Thyrotoxicosis, [...] mmol/L LAB CHEMISTRY METHOD 02/18/2025 11:25 AM [facility] Potassium 3.7 3.5 - 5.5 mmol/L LAB CHEMISTRY METHOD 02/18/2025 11:25 AM [facility] Chloride 107 96 - 110 mmol/L LAB CHEMISTRY METHOD 02/18/2025 11:25 AM [facility] CO2 26 21 - 32 mmol/L LAB CHEMISTRY METHOD 02/18/2025 11:25 AM [facility] Anion Gap 5 3 - 11 LAB CHEMISTRY METHOD 02/18/2025 11:25 AM [facility] Glucose 85 70 - 100 mg/dL LAB CHEMISTRY METHOD 02/18/2025 11:25 AM [facility] BUN 29(H) 5 - 25 mg/dL LAB CHEMISTRY METHOD 02/18/2025 11:25 AM [facility] Creatinine 1.67(H) 0.70 - 1.30 mg/dL LAB CHEMISTRY METHOD 02/18/2025 11:25 AM [facility] eGFR 45(L) >=60 mL/min/1. 73m2 LAB CHEMISTRY METHOD 02/18/2025 11:25 AM [facility] Comment:Calculation based on the Chronic Kidney Disease Epidemiology Collaboration (CKD-EPI) equation refit without adjustment for race. BUN/Creatinine Ratio 17.4 LAB CHEMISTRY METHOD 02/18/2025 11:25 AM [facility] Calcium 8.7 8.5 - 10.5 mg/dL LAB CHEMISTRY METHOD 02/18/2025 11:25 AM [facility] Blood Venous blood specimen / Unknown Venipuncture / Unknown 02/18/2025 6:52 AM EDT 02/18/2025 10:38 AM EDT Alexys Puentes MD LAB BLOOD ORDERABLES Final Result [facility] [address] [place] [address], * (ABNORMAL) Complete blood count (02/18/2025 6:52 [...] NRBC Absolute 0.04 <0.10 K/mcL [facility] METHOD 02/18/2025 10:58 AM EDT [facility] Blood Venous blood specimen / Unknown Venipuncture / Unknown 02/18/2025 6:52 AM EDT 02/18/2025 10:37 AM EDT us Alexys Puentes MD LAB BLOOD ORDERABLES Final Result [facility] [address] [place] [address], documented in this encounter Visit Diagnoses Diagnosis Chronic kidney disease, unspecified Hyperlipidemia, unspecified Thyrotoxicosis, unspecified without thyrotoxic crisis or storm documented in this encounter Care Teams Window Shade Cutter Relationship Specialty Start Date End Date Morris Rizzo MD [address] [place] [address] PCP - General Internal Medicine 05/27/22 documented as of this encounter
--- OUTSIDE RECORDS SUMMARY | 2025-10-13 10:20 | XMS_ITS | Encounter Summary ---
Author Organization [facility] Address [address] [place] [address] Care Team Providers Care Beet Topper Name Role Phone Morris Rizzo MD Primary Care Provider [phone] Encounter Details Date Type Department Care Team (Late st Contact Info) Description 02/03/[address] [facility] - Main Lab [address] [facility] [place] [address] Alexys Puentes MD [address] [place] [id number] Chronic kidney disease, unspecified; Hyperlipidemia, unspecified; Thyrotoxicosis, [...] g/dL LAB CHEMISTRY METHOD [facility] Albumin 2.6(L) 3.2 - 5.0 g/dL LAB CHEMISTRY METHOD 02/04/2025 12:03 PM EDT [facility] Total Bilirubin 0.8 0.0 - 1.4 mg/dL LAB CHEMISTRY METHOD 02/04/2025 12:03 PM [facility] Bilirubin, Direct 0.2 0.0 - 0.3 mg/dL LAB CHEMISTRY METHOD 02/04/2025 12:03 PM [facility] Bilirubin, Indirect 0.6 0.0 - 1.1 mg/dL LAB CHEMISTRY METHOD 02/04/2025 12:03 PM [facility] ALT (SGPT) 52 10 - 60 unit/L LAB CHEMISTRY METHOD 02/04/2025 12:03 PM [facility] AST (SGOT) 27 10 - 42 unit/L LAB CHEMISTRY METHOD 02/04/2025 12:03 PM [facility] Alkaline Phosphatase 128(H) 42 - 121 unit/L LAB CHEMISTRY METHOD 02/04/2025 12:03 PM [facility] Blood Venous blood specimen / Unknown Venipuncture / Unknown 02/04/2025 8:05 AM EDT 02/04/2025 10:03 AM EDT us Alexys Puentes MD LAB BLOOD ORDERABLES Final Result [facility] [address] [place], [place] [address] [phone] * (ABNORMAL) Basic metabolic panel (02/04/2025 8:05 AM EDT) Sodium 138 133 - 145 mmol/L LAB CHEMISTRY METHOD 02/04/2025 12:03 PM [facility] Potassium 3.4(L) 3.5 - 5.5 mmol/L LAB CHEMISTRY METHOD 02/04/2025 12:03 PM [facility] Chloride 105 96 - 110 mmol/L LAB CHEMISTRY METHOD 02/04/2025 12:03 PM [facility] CO2 27 21 - 32 mmol/L LAB CHEMISTRY METHOD 02/04/2025 12:03 PM [facility] Anion Gap 6 3 - 11 LAB CHEMISTRY METHOD 02/04/2025 12:03 PM [facility] Glucose 75 70 - 100 mg/dL LAB CHEMISTRY METHOD 02/04/2025 12:03 PM [facility] BUN 34(H) 5 - 25 mg/dL LAB CHEMISTRY METHOD 02/04/2025 12:03 PM [facility] Creatinine 1.66(H) 0.70 - 1.30 mg/dL LAB CHEMISTRY METHOD 02/04/2025 12:03 PM [facility] eGFR 45(L) >=60 mL/min/1. 73m2 LAB CHEMISTRY METHOD 02/04/2025 12:03 PM [facility] Comment:Calculation based on the Chronic Kidney Disease Epidemiology Collaboration (CKD-EPI) equation refit without adjustment for race. BUN/Creatinine Ratio 20.5 LAB CHEMISTRY METHOD 02/04/2025 12:03 PM [facility] Calcium 8.9 8.5 - 10.5 mg/dL LAB CHEMISTRY METHOD 02/04/2025 12:03 PM [facility] Blood Venous blood specimen / Unknown Venipuncture / Unknown 02/04/2025 8:05 AM EDT 02/04/2025 10:03 AM EDT us Alexys Puentes MD LAB BLOOD ORDERABLES Final Result [facility] [address] [place] [address], [place] [phone] * (ABNORMAL) Complete blood count (02/04/2025 8:05 AM EDT) WBC 4.8 4.8 - 10.8 K/mcL LAB HEMETOLOGY METHOD 02/04/2025 11:16 AM EDT [facility] RBC 3.10(L) 4.50 - 5.50 M/mcL LAB HEMETOLOGY METHOD 02/04/2025 11:16 AM [facility] Hemoglobin 9.9(L) 13.5 - 17.5 g/dL LAB HEMETOLOGY METHOD 02/04/2025 11:16 AM [facility] Hematocrit 29.6(L) 42.0 - 54.0 % LAB HEMETOLOGY METHOD 02/04/2025 11:16 AM [facility] MCV 97.0 79.0 - 98.0 FL LAB HEMETOLOGY METHOD 02/04/2025 11:16 AM [facility] MCH 32.5(H) 27.0 - 32.0 pcg LAB HEMETOLOGY METHOD 02/04/2025 11:16 AM [facility] MCHC 33.4 32.0 - 37.0 g/dL LAB HEMETOLOGY METHOD 02/04/2025 11:16 AM [facility] RDW 19.0(H) 11.0 - 15.0 % LAB HEMETOLOGY METHOD 02/04/2025 11:16 AM [facility] Platelets 120(L) 130 - [...] Result [facility] [address] [place] [address], documented in this encounter Visit Diagnoses Diagnosis Chronic kidney disease, unspecified Hyperlipidemia, unspecified Thyrotoxicosis, unspecified without thyrotoxic crisis or storm documented in this encounter Care Teams Beet Topper Relationship Specialty Start Date End Date Morris Rizzo MD [address] [facility] [address] [facility] [address] [place] [id number] PCP - General Internal Medicine 05/27/22 documented as of this encounter
== END 2025-10-13 10:02 | disposition home or self-care (01) ==
LOC: HO.HPS 09:17
PROVIDERS: Visit Provider Nurse Practitioner Family
DX: J45.909 Unspecified asthma, uncomplicated (principal); I26.99 Other pulmonary embolism without acute cor pulmonale; R05.9 Cough, unspecified; R91.8 Other nonspecific abnormal finding of lung field
CPT/HCPCS: 99214

== ENCOUNTER → 2025-10-13 09:16 | Outpatient (BNVA) | payer MEDICARE, OTHER, SELFPAY | PROVIDERS: Visit Provider Nurse Practitioner Family | DX: I26.99 Other pulmonary embolism without acute cor pulmonale (principal); R05.9 Cough, unspecified; J45.909 Unspecified asthma, uncomplicated; R91.8 Other nonspecific abnormal finding of lung field | CPT/HCPCS: 99212 ==

== ENCOUNTER 2025-10-18 07:08 | Outpatient (REF) | payer MEDICARE, OTHER, SELFPAY ==
--- OUTSIDE RECORDS SUMMARY | 2025-10-18 07:10 | XMS_ITS | Continuity of Care Document ---
Author Name [facility] Organization [facility] Care Team Providers Care Director Of Research Center Name Role Phone [facility] Unavailable Unavailable Immunizations Combined list of available immunizations from the Department of Defense and Veterans Affairs facilities. Immunization Series Date Given Administered By Site Reaction Lot Number CVX Code Drug Vp Marketing Services And Skin Status Comments Source SARS-COV-2 (COVID-19) vaccine, mRNA, spike protein, LNP, preservative free, 100 mcg or 50 mcg dose 2 2020 Unknown, Provider [id number] 207 [employer] (MOD) complet ed SARS-COV- 2 (COVID-19 ) vaccine, mRNA, spike protein, LNP, preservat addison free, 100 mcg or 50 mcg dose DoD SARS-COV-2 (COVID-19) vaccine, mRNA, spike protein, LNP, preservative free, 100 mcg or 50 mcg dose 1 2020 Unknown, Provider [id number] 207 [employer] (MOD) complet ed SARS-COV- 2 (COVID-19 ) vaccine, mRNA, spike protein, LNP, preservat addison free, 100 mcg or 50 mcg dose DoD Influenza, seasonal, injectable, preservative free 17 2011 Unknown, Provider [id number] 140 [employer] (CSL) complet ed Influenza , seasonal, injectabl e, preservat addison free DoD Influenza, seasonal, injectable, preservative free 16 2010 Unknown, Provider [id number] 140 [employer] (CSL) complet ed Influenza , seasonal, injectabl e, preservat addison free DoD tetanus toxoid, reduced diphtheria toxoid, and acellular pertu is vaccine, adsorbed 2 2010 Unknown, Provider [id number] 115 Transcribed (TRS) complet ed tetanus toxoid, reduced diphtheri a toxoid, and acellular pertussis vaccine, adsorbed DoD influenza virus vaccine, split virus (incl. purified surface antigen)-reti red CODE 1 2009 Unknown, Provider [id number] 15 [facility] [employer] (CSL) complet ed influenza virus vaccine, split virus (incl. purified surface antigen)- retired CODE DoD Novel influenza-H1N 1-09, injectable 1 2009 Unknown, Provider [id number] 127 Novartis [employer]. (NOV) complet ed Novel influenza -V1A5-18, injectabl e DoD influenza virus vaccine, split virus (incl. purified surface antigen)-reti red CODE 1 2008 Unknown, Provider [id number] 15 [facility] [employer] ([facility]) complet ed influenza virus vaccine, split virus (incl. purified surface antigen)- retired CODE DoD typhoid Vi capsular polysaccharid e vaccine 1 2008 Unknown, Provider [id number] Sanofi Pasteur ([facility]) complet ed typhoid Vi capsular polysacch aride vaccine DoD influenza virus vaccine, split virus (incl. purified surface antigen)-reti red CODE 1 2007 Unknown, Provider [id number] 15 [facility] ([facility]) complet ed influenza virus vaccine, split virus (incl. purified surface antigen)- retired CODE DoD influenza virus vaccine, split virus (incl. purified surface antigen)-reti red CODE 1 2006 Unknown, Provider [id number] 15 [facility] ([facility]) complet ed influenza virus vaccine, split virus (incl. purified surface antigen)- retired CODE DoD tetanus toxoid, reduced diphtheria toxoid, and acellular pertu is vaccine, adsorbed 1 2006 Unknown, Provider [id number] 115 Sanofi Pasteur ([facility]) complet ed tetanus toxoid, reduced diphtheri a toxoid, and acellular pertussis vaccine, adsorbed DoD typhoid vaccine, parenteral, other than acetone-kille d, dried 1 2006 Unknown, Provider [id number] 41 Sanofi Pasteur ([facility]) complet ed typhoid vaccine, parentera l, other than acetone-k illed, dried DoD influenza virus vaccine, split virus (incl. purified surface antigen)-reti red CODE 1 2005 Unknown, Provider [id number] 15 Other (OTH) complet ed influenza virus vaccine, split virus (incl. purified surface antigen)- retired CODE DoD influenza virus vaccine, split virus (incl. purified surface antigen)-reti red CODE 1 2004 Unknown, Provider [id number] 15 Sanofi Pasteur ([facility]) complet ed influenza virus vaccine, split virus (incl. purified surface antigen)- retired CODE DoD typhoid vaccine, parenteral, other than acetone-kille d, dried 1 2004 Unknown, Provider [id number] 41 Sanofi Pasteur ([facility]) complet ed typhoid vaccine, parentera l, other than acetone-k illed, dried DoD influenza virus vaccine, split virus (incl. purified surface antigen)-reti red CODE 1 2004 Unknown, Provider [id number] 15 [employer] ([facility]) complet ed influenza virus vaccine, split virus (incl. purified surface antigen)- retired CODE DoD tuberculin skin test; purified protein derivative solution, intradermal 1 2003 Unknown, Provider 96 [facility] ([facility]) complet ed tuberculi n skin test; purified protein derivativ e solution, intraderm al DoD influenza virus vaccine, whole virus 1 2002 Unknown, Provider [id number] 16 [employer] (PWJ) complet ed influenza virus vaccine, whole virus DoD meningococcal polysaccharid e vaccine (MPSV4) 1 2002 Unknown, Provider [id number] 32 Sanofi Pasteur ([facility]) complet ed meningoco ccal polysacch aride vaccine (MPSV4) DoD typhoid vaccine, parenteral, other than acetone-kille d, dried 1 2002 Unknown, Provider [id number] 41 Sanofi Pasteur ([facility]) complet ed typhoid vaccine, parentera l, other than acetone-k illed, dried DoD tuberculin skin test; purified protein derivative solution, intradermal 1 2002 Unknown, Provider [id number] 96 Sanofi Pasteur ([facility]) complet ed tuberculi n skin test; purified protein derivativ e solution, intraderm al DoD influenza virus vaccine, whole virus 1 2001 Unknown, Provider [id number] 16 [employer] ([facility]) complet ed influenza virus vaccine, whole virus DoD influenza virus vaccine, whole virus 1 2001 Unknown, Provider [id number] 16 Sanofi Pasteur ([facility]) complet ed influenza virus vaccine, whole virus DoD tuberculin skin test; purified protein derivative solution, intradermal 1 2001 Unknown, Provider [id number] 96 Sanofi Pasteur ([facility]) complet ed tuberculi n skin test; purified protein derivativ e solution, intraderm al DoD influenza virus vaccine, whole virus 1 2000 Unknown, Provider [id number] 16 Sanofi Pasteur ([facility]) complet ed influenza virus vaccine, whole virus DoD hepatitis B vaccine, adult dosage 3 2000 Unknown, Provider [id number] 43 Merck (MSD) complet ed hepatitis B vaccine, adult dosage DoD hepatitis B vaccine, adult dosage 2 2000 Unknown, Provider [id number] 43 Merck (MSD) complet ed hepatitis B vaccine, adult dosage DoD hepatitis B vaccine, adult dosage 1 2000 Unknown, Provider [id number] 43 Merck (MSD) complet ed hepatitis B vaccine, adult dosage DoD influenza virus vaccine, whole virus 1 2000 Unknown, Provider [id number] 16 [facility] ([facility]) complet ed influenza virus vaccine, whole virus DoD tuberculin skin test; purified protein derivative solution, intradermal 1 1999 Unknown, Provider [id number] 96 Torrimelly (CON) complet ed tuberculi n skin test; purified protein derivativ e solution, intraderm al DoD influenza virus vaccine, whole virus 1 1998 Unknown, [facility] [id number] [facility]) complet ed influenza virus vaccine, whole virus DoD tuberculin skin test; purified protein derivative solution, intradermal 1 1998 Unknown, Provider [id number] [employer]rimelly (CON) complet ed tuberculi n skin test; purified protein derivativ e solution, intraderm al DoD tetanus and diphtheria toxoids, adsorbed, preservative free, for adult use (2 Lf of tetanus toxoid and 2 Lf of diphtheria toxoid) 1 1998 Unknown, Provider 09 () complet ed tetanus and diphtheri a toxoids, adsorbed, preservat addison free, for adult use (2 Lf of tetanus toxoid and 2 Lf of diphtheri a toxoid) DoD measles, mumps and rubella virus vaccine 2 1997 Unknown, Provider [id number] Saroj (AB) complet ed measles, mumps and rubella virus vaccine DoD influenza virus vaccine, whole virus 1 1997 Unknown, Provider [id number] 16 Jamison (CON) complet ed influenza virus vaccine, whole virus DoD hepatitis A vaccine, adult dosage 2 1997 Unknown, Provider [id number] 52 Merck (MSD) complet ed hepatitis A vaccine, adult dosage DoD tuberculin skin test; purified protein derivative solution, intradermal 1 1997 Unknown, Provider [id number] 96 Jamison (CON) complet ed tuberculi n skin test; purified protein derivativ e solution, intraderm al DoD meningococcal polysaccharid e vaccine (MPSV4) 1 1997 Unknown, Provider [id number] 32 Jamison (CON) complet ed meningoco ccal polysacch aride vaccine (MPSV4) DoD influenza virus vaccine, whole virus 1 1996 Unknown, Provider [id number] 16 Jamison (CON) complet ed influenza virus vaccine, whole virus DoD hepatitis A vaccine, adult dosage 1 1996 Unknown, Provider [id number] 52 Merck (MSD) complet ed hepatitis A vaccine, adult dosage DoD tuberculin skin test; purified protein derivative solution, intradermal 1 1996 Unknown, Provider [id number] 96 Jamison (CON) complet ed tuberculi n skin test; purified protein derivativ e solution, intraderm al DoD typhoid vaccine, parenteral, acetone-kille d, dried ([place] ) 2 1996 Unknown, Provider [id number] Merck (MSD) complet ed typhoid vaccine, parentera l, acetone-k illed, dried ([place] ) DoD tuberculin skin test; purified protein derivative solution, intradermal 1 1995 Unknown, Provider [id number] 96 Jamison (CON) complet ed tuberculi n skin test; purified protein derivativ e solution, intraderm al DoD tetanus and diphtheria toxoids, adsorbed, preservative free, for adult use (2 Lf of tetanus toxoid and 2 Lf of diphtheria toxoid) 2 1992 Unknown, Provider 09 () complet ed tetanus and diphtheri a toxoids, adsorbed, preservat addison free, for adult use (2 Lf of tetanus toxoid and 2 Lf of diphtheri a toxoid) DoD yellow fever vaccine 1 1992 Unknown, Provider [id number] Jamison (CON) complet ed yellow fever vaccine DoD trivalent poliovirus vaccine, live, oral 3 1981 Unknown, Provider 02 () complet ed trivalent polioviru s vaccine, live, oral DoD measles, mumps and rubella virus vaccine 1 1981 Unknown, Provider 03 () complet ed measles, mumps and rubella virus vaccine DoD Social History Combined list of available smoking, tobacco, and other social history from Department of Defense and Veterans Affairs facilities. Social History Type Response Date Comment [facility] e This section is an empty social history section. DoD
--- OUTSIDE RECORDS SUMMARY | 2025-10-18 07:11 | XMS_ITS | Encounter Summary ---
Author Organization [facility] Address [address] [place] [address] Care Team Providers Care Shrimp Cleaner Name Role Phone Morris Rizzo Primary Care Provider [phone] Encounter Details Date Type Department Care Team (Late st Contact Info) Description 04/15/2024 Orders Only [facility] [address] [facility], 5th [place] [address] Shola Arroyo MD [address] [place] [address] Social History Tobacco Use Types Packs/Day Years [...] on filedocumented in this encounter Care Teams Shrimp Cleaner Relationship Specialty Start Date End Date Morris Rizzo [address] [place] [address] [place] [address] PCP - General Internal Medicine 01/09/24 documented as of this encounter
--- OUTSIDE RECORDS SUMMARY | 2025-10-18 07:12 | XMS_ITS | Encounter Summary ---
Author Organization [facility] Address [address] [place] [address] Care Team Providers Care Beach Expert Name Role Phone Morris Rizzo MD Primary Care Provider [phone] Encounter Details Date Type Department Care Team (Late st Contact Info) Description 02/03/2025 Lab Requisition [facility] - Main Lab [address] [facility] [place] [address] Alexys Puentes MD [address] [place] [address] Chronic kidney disease, unspecified; Hyperlipidemia, unspecified; Thyrotoxicosis, [...] [facility] [address] [place], [place] [address] [phone] * (ABNORMAL) Basic metabolic panel (02/04/2025 8:05 [...] [facility] [address] [place] [address], [place] [phone] * (ABNORMAL) Complete blood count (02/04/2025 8:05 [...] [facility] [address] [place] [address], documented in this encounter Visit Diagnoses Diagnosis Chronic kidney disease, unspecified Hyperlipidemia, unspecified Thyrotoxicosis, unspecified without thyrotoxic crisis or storm documented in this encounter Care Teams Beach Expert Relationship Specialty Start Date End Date Morris Rizzo MD [address] [place] [address] PCP - General Internal Medicine 05/27/22 documented as of this encounter
--- OUTSIDE RECORDS SUMMARY | 2025-10-18 07:12 | XMS_ITS | Encounter Summary ---
Author Organization [facility] Address [address] [place] [address] Care Team Providers Care Medical Administrative Specialist Name Role Phone Morris Rzizo MD Primary Care Provider [phone] Encounter Details Date Type Department Care Team (Late st Contact Info) Description 01/28/[address] [facility] - Main Lab [address] [facility] [place] [address] Alexys Puentes MD [address] [place] [address] Chronic kidney disease, unspecified; Hyperlipidemia, unspecified; Hypothyroidism, [...] LAB CHEMISTRY METHOD 01/28/2025 11:56 AM EDT [facility] Total Protein 5.5(L) 6.0 - 8.0 g/dL LAB CHEMISTRY METHOD 01/28/2025 11:56 AM [facility] Albumin 2.6(L) 3.2 - 5.0 g/dL LAB CHEMISTRY METHOD 01/28/2025 11:56 AM [facility] Total Bilirubin 0.9 0.0 - 1.4 mg/dL LAB CHEMISTRY METHOD 01/28/2025 11:56 AM T [facility] Blood Venous blood specimen / Unknown Venipuncture / Unknown 01/28/2025 8:36 AM EDT 01/28/2025 10:43 AM EDT Alexys Puentes MD LAB BLOOD ORDERABLES Final Result [facility] [address] [place] [address], * (ABNORMAL) Complete blood count (01/28/2025 8:36 AM EDT) WBC 5.1 4.8 - 10.8 K/[facility] LAB HEMETOLOGY METHOD 01/28/2025 12:04 PM [facility] RBC 3.50(L) 4.50 - 5.50 M/[facility] LAB HEMETOLOGY METHOD 01/28/2025 12:04 PM [facility] Hemoglobin 11.6(L) 13.5 - 17.5 g/dL LAB HEMETOLOGY METHOD 01/28/2025 12:04 PM [facility] Hematocrit 34.2(L) 42.0 - 54.0 % LAB HEMETOLOGY METHOD 01/28/2025 12:04 PM [facility] MCV 96.6 79.0 - 98.0 FL LAB HEMETOLOGY METHOD 01/28/2025 12:04 PM EDT [facility] MCH 32.8(H) 27.0 - 32.0 pcg LAB HEMETOLOGY METHOD 01/28/2025 12:04 PM EDT [facility] MCHC 33.9 32.0 - 37.0 g/dL LAB HEMETOLOGY METHOD 01/28/2025 12:04 PM EDT [facility] RDW 18.3(H) 11.0 - 15.0 % LAB HEMETOLOGY METHOD 01/28/2025 12:04 PM EDT [facility] Platelets 92(L) 130 - 400 K/mcL LAB HEMETOLOGY METHOD 01/28/2025 12:04 PM EDT [facility] Comment:reviewed by slide MPV 10.4 7.0 - 11.0 FL LAB HEMETOLOGY METHOD 01/28/2025 12:04 PM EDT [facility] NRBC 0.4 <1.0 % LAB HEMETOLOGY METHOD 01/28/2025 12:04 PM EDT [facility] NRBC Absolute 0.02 <0.10 K/mcL LAB HEMETOLOGY METHOD 01/28/2025 12:04 PM EDT [facility] Blood Venous blood specimen / Unknown Venipuncture / Unknown 01/28/2025 8:36 AM EDT 01/28/2025 10:43 AM EDT us Alexys Puentes MD LAB BLOOD ORDERABLES Final Result [facility] [address] [place] [address], documented in this encounter Visit Diagnoses Diagnosis Chronic kidney disease, unspecified Hyperlipidemia, unspecified Hypothyroidism, unspecified documented in this encounter Care Teams Medical Administrative Specialist Relationship Specialty Start Date End Date Morris Rizzo MD [address] [place] [address] PCP - General Internal Medicine 05/27/22 documented as of this encounter
--- OUTSIDE RECORDS SUMMARY | 2025-10-18 07:12 | XMS_ITS | Clinical Summary ---
Author Organization [facility] Address [address] [place] [address] Care Team Providers Care Rn Cardiology Name Role Phone Morris Rizzo Primary Care Provider [phone] Allergies No known active allergies Medications atorvastatin [...] Cessation:Counseling Given: Not Answered Comments:On and off [phone] smoking, at most 1 PPD Alcohol Use [...] Completed 08/03/2023 Procedures * Due to [place] Delectable law, this organization might not be sharing negative HIV tests. Procedure Name Priority Date/Time Associated Diagnosis Comments AMB EXTERNAL CT CHEST, OUTSI DE RESULT 01/23/2024 from Last 3 Months or Most Recently Relevant to Health Maintenance Results * Due to [place] Delectable law, this organization might not be sharing negative HIV tests. * AMB EXTERNAL CT CHEST, OUTSIDE RESULT (01/23/2024) [facility] RES[facility] PROCEDURE S Final Result from Last 3 Months or Most Recently Relevant to Health Maintenance Insurance MEDICARE FOR LIFE Advance Directives Documents on File Type Date Recorded Patient Hydrochloric Manufacturing Supervisor Expl [facility] Health Care Proxy 05/27/2024 7:26 AM Care Teams Rn Cardiology Relationship Specialty Start Date End Date Morris Rizzo [address] [place] [address] [place] [address] PCP - General Internal Medicine 01/09/24
--- OUTSIDE RECORDS SUMMARY | 2025-10-18 07:12 | XMS_ITS | Encounter Summary ---
Author Organization [facility] Address [address] [place] [address] Care Team Providers Care Upholstery Restorer Name Role Phone Morris Rizzo MD Primary Care Provider [phone] Encounter Details Date Type Department Care Team (Late st Contact Info) Description 02/10/2025 Lab Requisition [facility] - Main Lab [address] [facility] [place] [address] Alexys Puentes MD [address] [place] [address] Chronic kidney disease, unspecified; Hyperlipidemia, unspecified; Thyrotoxicosis, [...] [facility] [address] [place] [address], * (ABNORMAL) Basic metabolic panel (02/11/2025 7:58 AM EDT) [facility] Sodium 143 133 - 145 mmol/L LAB CHEMISTRY METHOD 02/11/2025 11:[address] [facility] Potassium 4.4 3.5 - 5.5 mmol/L LAB CHEMISTRY METHOD 02/11/2025 11:[address] [facility] Chloride 109 96 - 110 mmol/L LAB CHEMISTRY METHOD 02/11/2025 11:[address] [facility] CO2 27 21 - 32 mmol/L LAB CHEMISTRY METHOD 02/11/2025 11:[address] [facility] Anion Gap 7 3 - 11 LAB CHEMISTRY METHOD 02/11/2025 11:[address] [facility] Glucose 89 70 - 100 mg/dL LAB CHEMISTRY METHOD 02/11/2025 11:[address] [facility] BUN 31(H) 5 - 25 [...] mg/dL LAB CHEMISTRY METHOD 02/11/2025 11:[address] [facility] Blood Venous blood specimen / Unknown Venipuncture / Unknown 02/11/2025 7:58 AM EDT 02/11/2025 9:08 AM EDT us Alexys Puentes MD LAB BLOOD ORDERABLES Final Result [facility] [address] [place] [address], * (ABNORMAL) Complete blood count (02/11/2025 7:58 [...] [facility] [address] [place] [address], documented in this encounter Visit Diagnoses Diagnosis Chronic kidney disease, unspecified Hyperlipidemia, unspecified Thyrotoxicosis, unspecified without thyrotoxic crisis or storm Disorder of thyroid, unspecified documented in this encounter Care Teams Upholstery Restorer Relationship Specialty Start Date End Date Morris Rizzo MD [address] [place] [address] Drive [address] [place] [address] PCP - General Internal Medicine 05/27/22 documented as of this encounter
--- OUTSIDE RECORDS SUMMARY | 2025-10-18 07:12 | XMS_ITS | Clinical Summary ---
Author Organization [facility] Address [address] [place] [address] Phone Care Team Providers Care [place] Name Role Phone Morris Rizzo MD Primary Care Provider [phone] Social History Tobacco Use Types Packs/Day Years [...] EDT Narrative 08/19/2024 6:31 AM EDT [facility] Diagnostic Imaging Department [address] [place] [address] Patient: JOSE LAMBERT Chandler Vickers/Age/Sex: 1960 - 63 - M Unit#: [id number] Location/Status: SPDICATLS/REG CLI Mnemonic/Ordering Site: [facility] Ordering Physician: SUYAPA WEST MD CT [...] Note Alpa Lorenzana MD - 08/24/2024 [facility] Diagnostic Imaging Department [address] [place] [address] Patient: JOSE LAMBERT /Age/Sex: 1960 - 63 - M Unit#: [id number] Location/Status: SPDICATLS/REG CLI Mnemonic/Ordering Site: [facility] Ordering Physician: SUYAPA WEST MD CT Lung [...] Recently Relevant to Health Maintenance Insurance [facility]ICARE [facility] Care Teams [place] Relationship Specialty Start Date End Date Morris Rizzo MD [address] [facility] [address] [place] [address] PCP - General Internal Medicine 05/27/22
--- OUTSIDE RECORDS SUMMARY | 2025-10-18 07:12 | XMS_ITS | Clinical Summary ---
Author Organization [facility] Address [address] [facility] [address] [place], [place] [address] Phone Care Team Providers Care Automotive Center Manager Name Role Phone Unavailable Primary Care Provider [...] [place] [id number] MEDICARE PART A & B MEDICARE PART A & B MEDICARE PART A & B MEDICARE PART A & B MEDICARE PART A & B Additional Source Comments The information contained in this document represents components of the legal health record. It is not the complete legal health record.[facility]
--- OUTSIDE RECORDS SUMMARY | 2025-10-18 07:12 | XMS_ITS | Patient Health Record ---
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 [employer] Notes: Nonsmoker since 2016; no sig alcohol Nonsmoker since 2016; no sig alcohol Problems Problem Type SNOMED Code ICD Code Onset Dates Problem Status W/U Status Risk Notes Problem Colon cancer screening (370265874) Colon cancer screening (Z12.11) Active confirmed Problem Epigastric pain (67461932) Epigastric abdominal pain (R10.13) Active confirmed Problem Screening for malignant neoplasm of colon (560269746) Encounter for screening for malignant neoplasm of colon (Z12.11) Active confirmed Problem Preprocedural examination (228439364018972) Preprocedural examination (Z01.818) Active confirmed Plan Of Treatment Future Test Test Name Order Date UPPER GI ENDOSCOPY 08/23/2017 COLONOSCOPY 04/10/2019 COLONOSCOPY 04/26/2024 Insurance Providers Payer Name Payer Address Payer Phone Subscriber Number Group Number Insured Name Patient Relationship to Insured Coverage Start Date Coverage End Date MEDICARE OF [place] [address] [place] [address] [id number] JOSE CUBA Self - patient is the insured [employer] [address] [place] [address] [id number] JOSE CUBA Self - patient is the insured Medical (General) History Medical History History ICD Code Denies MS,DM,CVA,Lung disease,renal dise ase Hyperlipidemia Screening colonoscopy in Mar with Dr. [place] revealed only hyperplastic polyps. EGD in 08/2017-small HH, normal duodenal and gastric biopsies Surgical History Surgery Date(Month/Year) Lap cholecystectomy--acalculous cholecys titis-Dr. Knutson 05/2017 Finger- infection drained 1969
--- OUTSIDE RECORDS SUMMARY | 2025-10-18 07:12 | XMS_ITS ---
Author Organization [facility] Address [address] [place] [address] Care Team Providers Care [employer] Etch Operator Name Role Phone Morris Rizzo Primary Care Provider [phone] Active Problems Problem Noted Date Diagnosed Date Hyperkalemia 05/30/2024 Malignant neoplasm of overlapping sites of bladd er 03/04/2024 Other hydronephrosis 03/04/2024 Current Treatment and Therapy Plans No current plan information found. Past Treatment and Therapy Plans No past plan information found. Lifetime Dose Tracking * Chemical Lifetime Dose Automatic Entry Manual Entr y TotalDLP 1,042 mGy 1,042 mGy 0 mGy [id number] 13.5 mSv 13.5 mSv 0 mSv CTDIvol Max 11.8 mGy 11.8 mGy 0 mGy CTDIvol Min 7.3 mGy 7.3 mGy 0 mGy
--- OUTSIDE RECORDS SUMMARY | 2025-10-18 07:12 | XMS_ITS | Encounter Summary ---
Author Organization [facility] Address [address] [place] [address] Care Team Providers Care Camp Dishwasher Name Role Phone Morris Rizzo MD Primary Care Provider [phone] Encounter Details Date Type Department Care Team (Late st Contact Info) Description 02/17/2025 Lab Requisition [facility] - Main Lab [address] [facility] [place] [address] Alexys Puentes MD [address] [place] [id number] Chronic kidney disease, unspecified; Hyperlipidemia, unspecified; Thyrotoxicosis, [...] mmol/L LAB CHEMISTRY METHOD 02/18/2025 11:25 AM [facility] Potassium 3.7 3.5 - 5.5 mmol/L LAB CHEMISTRY METHOD 02/18/2025 11:25 AM [facility] Chloride 107 96 - 110 mmol/L LAB CHEMISTRY METHOD 02/18/2025 11:25 AM [facility] CO2 26 21 - 32 mmol/L LAB CHEMISTRY METHOD 02/18/2025 11:25 AM [facility] Anion Gap 5 3 - 11 LAB CHEMISTRY METHOD 02/18/2025 11:25 AM [facility] Glucose 85 70 - 100 mg/dL LAB CHEMISTRY METHOD 02/18/2025 11:25 AM [facility] BUN 29(H) 5 - 25 mg/dL LAB CHEMISTRY METHOD 02/18/2025 11:25 AM [facility] Creatinine 1.67(H) 0.70 - 1.30 mg/dL LAB CHEMISTRY METHOD 02/18/2025 11:25 AM [facility] eGFR 45(L) >=60 mL/min/1. 73m2 LAB CHEMISTRY METHOD 02/18/2025 11:25 AM [facility] Comment:Calculation based on the Chronic Kidney Disease Epidemiology Collaboration (CKD-EPI) equation refit without adjustment for race. BUN/Creatinine Ratio 17.4 LAB CHEMISTRY METHOD 02/18/2025 11:25 AM [facility] Calcium 8.7 8.5 - 10.5 mg/dL LAB CHEMISTRY METHOD 02/18/2025 11:25 AM [facility] Blood Venous blood specimen / Unknown Venipuncture / Unknown 02/18/2025 6:52 AM EDT 02/18/2025 10:38 AM EDT Alexys Puentes MD LAB BLOOD ORDERABLES Final Result [facility] [address] [place] [address], * (ABNORMAL) Complete blood count (02/18/2025 6:52 AM EDT) WBC 4.2(L) 4.8 - 10.8 K/mcL LAB HEMETOLOGY METHOD 02/18/2025 10:58 AM EDT [facility] RBC 2.80(L) 4.50 - 5.50 M/mcL LAB HEMETOLOGY METHOD 02/18/2025 10:58 AM EDT [facility] Hemoglobin 9.4(L) 13.5 - 17.5 g/dL LAB HEMETOLOGY METHOD 02/18/2025 10:58 AM EDT [facility] Hematocrit 29.1(L) 42.0 - 54.0 % LAB HEMETOLOGY METHOD 02/18/2025 10:58 AM EDT [facility] MCV 103.9(H) 79.0 - 98.0 FL LAB HEMETOLOGY METHOD 02/18/2025 10:58 AM EDT [facility] MCH 33.6(H) 27.0 - 32.0 pcg LAB HEMETOLOGY METHOD 02/18/2025 10:58 AM EDT [facility] MCHC 32.3 32.0 - 37.0 g/dL LAB HEMETOLOGY METHOD 02/18/2025 10:58 AM EDT [facility] RDW 20.8(H) 11.0 - 15.0 % LAB HEMETOLOGY METHOD 02/18/2025 10:58 AM EDT [facility] Platelets 206 130 - 400 K/mcL LAB HEMETOLOGY METHOD 02/18/2025 10:58 AM EDT [facility] MPV 9.7 7.0 - 11.0 FL LAB HEMETOLOGY METHOD 02/18/2025 10:58 AM EDT [facility] NRBC 1.0(H) <1.0 % LAB HEMETOLOGY METHOD 02/18/2025 10:58 AM EDT [facility] NRBC Absolute 0.04 <0.10 K/mcL [facility] 02/18/2025 10:58 AM EDT [facility] Blood Venous blood specimen / Unknown Venipuncture / Unknown 02/18/2025 6:52 AM EDT 02/18/2025 10:37 AM EDT us Alexys Puentes MD LAB BLOOD ORDERABLES Final Result [facility] [address] [place] [address], documented in this encounter Visit Diagnoses Diagnosis Chronic kidney disease, unspecified Hyperlipidemia, unspecified Thyrotoxicosis, unspecified without thyrotoxic crisis or storm documented in this encounter Care Teams Camp Dishwasher Relationship Specialty Start Date End Date Morris Rizzo MD [address] [place] [address] PCP - General Internal Medicine 05/27/22 documented as of this encounter
[2025-10-18 07:22] LABS: MANUAL DIFF FLAG NO
[2025-10-18 07:59] LABS: Hematocrit 37.0 % (42.0-52.0); Hemoglobin 12.2 g/dl (14.0-18.0); Imm Gran Abs Auto 0.03 X10*3/uL (0.00-0.03); Imm Gran Pct Auto 0.7 % (0.0-0.4); Lymphocytes Absolute Auto 1.2 X10*3/uL (1.2-4.9); Mean Corpuscular HGB Conc 33.0 g/dl (31.0-36.0); Mean Corpuscular Hemoglobin 31.7 pg (27.0-33.0); Mean Corpuscular Volume 96.1 fL (80.0-98.0); NRBC Abs Auto 0.000 X10*3/uL (0.0-0.012); NRBC Pct Auto 0.0 /100WBC (0.0-0.2); Platelet Count 156 X10*3/uL (160-400); Red Blood Count 3.85 X10*6/uL (4.60-5.80); White Blood Count 4.5 X10*3/uL (4.8-10.8)
[2025-10-18 08:22] LABS: Alanine Aminotransferase 25 U/L (0-40); Albumin Level 3.9 g/dL (3.5-5.0); Alkaline Phosphatase 111 U/L (39-117); Anion Gap 12 (12-20); Aspartate Amino Transferase 47 U/L (5-37); Blood Urea Nitrogen 44 mg/dL (9-16); Calcium 9.3 mg/dL (8.4-10.2); Carbon Dioxide 24 mmol/L (22-29); Chloride 106 mmol/L (96-108); Estimated Glomerular Filt Rate 38; Magnesium 1.8 mg/dL (1.6-2.6); Potassium 4.3 mmol/L (3.3-5.1); Sodium 138 mmol/L (135-145); Total Protein 6.8 g/dL (6.5-8.0)
== END 2025-10-18 07:09 | disposition home or self-care (01) ==
LOC: HO.LAB 07:08
PROVIDERS: Visit Provider Internal Medicine
DX: C67.9 Malignant neoplasm of bladder, unspecified (principal)
CPT/HCPCS: 36415; 80053; 83735; 85025